=== PATIENT | male | born 1955 | race Caucasian/White ===

== ENCOUNTER 2023-02-01 11:04 | Inpatient (IN) ==
[2023-02-01 11:58] LABS: Basophils # (auto) 0.02 K/uL (0.00-0.20); Basophils % (auto) 0.4 %; Eosinophils # (auto) 0.16 K/uL (0.00-0.50); Eosinophils % (auto) 3.3 %; Hematocrit (blood only) 41.2 % (42.0-52.0); Hemoglobin 14.2 g/dl (14.0-18.0); Immature Granulocytes # (auto) 0.02 K/uL (0.01-0.20); Immature Granulocytes % (auto) 0.4 %; Lymphocytes # (auto) 1.03 K/uL (1.20-3.40); Lymphocytes % (auto) 21.4 %; Mean Corpuscular Hemoglobin 34.7 pg (25.0-34.0); Mean Corpuscular Hgb Conc 34.5 g/dL (32.0-36.0); Mean Corpuscular Volume 100.7 fL (80.0-100.0); Mean Platelet Volume 9.3 fL (9.4-12.4); Monocytes # (auto) 0.61 K/uL (0.11-0.59); Monocytes % (auto) 12.7 %; Neutrophils # (auto) 2.97 K/uL (1.40-6.50); Neutrophils % (auto) 61.8 %; Platelet Count 212 K/uL (130-400); RDW Coefficient of Variation 12.4 % (11.5-14.5); RDW Standard Deviation 46.2 fL (36.4-46.3); Red Blood Count 4.09 M/uL (4.70-6.10); White Blood Count 4.81 K/ul (4.8-10.8)
[2023-02-01 12:19] LABS: Alanine Aminotransferase 18 U/L (7-52); Albumin Globulin Ratio 1.6 (0.9-2); Albumin Level 4.2 gm/dl (3.4-5.0); Alkaline Phosphatase 78 U/L (34-104); Anion Gap 8 (3-11); Aspartate Aminotransferase 23 U/L (13-39); Bilirubin,Total 0.6 mg/dl (0.2-1.0); Blood Urea Nitrogen 22 mg/dl (6-23); Calcium 9.3 mg/dl (8.6-10.3); Carbon Dioxide 27 mmol/L (21-32); Chloride 104 mmol/L (98-107); Est GFR (African American) 101.6 ml/min; Est GFR (Non-African American) 87.6 ml/min; Globulin 2.6 gm/dl (2.5-4.0); Glucose 103 mg/dl (70-99(Fasting)); Potassium 4.2 mmol/L (3.5-5.1); Sodium 139 mmol/L (136-145); Total Protein 6.8 gm/dl (6.0-8.3)
--- NOTE | 2023-02-01 14:09 | Emergency Department Note ---
Impression & Plan Dropfoot, Lumbar radiculopathy, Thoracic back pain, Bilateral leg weakness ED Provider Note NAME: MAGEN MCCALL AGE: 67 SEX: M : 1955 ARRIVES VIA: Walk-In INFORMANT: Patient ED PROVIDER(S): Fabio Otero DO CHIEF COMPLAINT: back pain HPI: Patient is a 67-year-old male who presents ER for back pain which has been present for the past 2 months. He notes he started with some dropfoot of the right leg about 6 weeks ago. He now notes he is having weakness and numbness on bilateral thighs. He was referred in by his PCP following having a MRI of the thoracic spine. Denies any headache or change in vision. No chest pain or shortness of breath. No nausea, vomiting, or diarrhea. He is able to urinate move his bowels. ADDITIONAL HISTORY OBTAINED: Per HPI Chronic Medical/Social Conditions Affecting Care: Per HPI PAST MEDICAL HISTORY:See Below PAST SURGICAL HISTORY:See Below FAMILY HISTORY:See Below SOCIAL HISTORY:See Below HOME MEDICATIONS:See Below ALLERGIES:See Below VITALS:See Below PHYSICAL EXAMINATION: GENERAL: Sitting up in bed, alert, well appearing, well nourished, no distress, non-toxic EYE EXAM: normal conjunctiva. OROPHARYNX: no exudate, no erythema, lips, buccal mucosa, and tongue normal and mucous membranes are moist NECK: supple, no nuchal rigidity, no adenopathy, non-tender LUNGS: Clear to auscultation. Normal chest wall mechanics HEART: no murmurs, S1 normal and S2 normal ABDOMEN: abdomen soft, non-tender, normo-active bowel sounds, no masses, no rebound or guarding. BACK: Back is symmetrical on inspection and there is no deformity, no midline tenderness, no CVA tenderness. SKIN: no rashes and no bruising UPPER EXTREMITIES: upper extremities are grossly normal. LOWER EXTREMITIES:Flexion and extension of the hips, knees, 5 out of 5 bilaterally. Flexion extension of the left ankle and EHL intact 5 out of 5. Able to plantarflex on the right but unable to dorsiflex. Unable to extend EHL. Gross sensation is intact. DPs are 2/4 bilateral. Patellar reflexes are 2 out of 4 bilaterally. NEURO EXAM: Normal sensorium, cranial nerves II-XII grossly intact, normal speech, no gross weakness of arms, no gross weakness of legs. MEDICAL DECISION MAKING: Patient is a 67-year-old male who presents ER for the above-stated complaint. IV was established blood work was obtained. External records were reviewed in regards to the MRI of the thoracic spine which showed T10-T11 abnormalities. These were discussed with Dr. Lott who operated on this patient before in the past. He recommended MRI lumbar spine admission to the hospital some further work-up. I did discuss with the hospitalist for further evaluation management treatment. Labs showed no significant leukocytosis or anemia. BMP along with LFTs bilirubin was unremarkable. Patient was given 2 doses of Ativan to help him get through the MRI. He was admitted to hospitalist I spoke with Delilah michael for further evaluation. External Records Reviewed: Reviewed external MRI from 611 and thoracic spine Consults/Care Managements Discussions: Per MDM Triage Nursing notes reviewed. Limited review of prior medical records performed Vital Signs: reviewed and remarkable for no significant abnormalities Differential diagnosis: Musculoskeletal, disc herniation, fracture, metastatic disease, cord comp ression, discitis, sciatica, cauda equina, infection, aortic disease, renal colic, gastrointestinal, as well as other pathologies. ER treatment provided: See below Diagnostics interpreted by me include EKG and cardiac monitoring as listed below: -Cardiac Monitoring: An order was placed for continuous cardiac monitoring. The monitor shows a rate of 70 with sinus rhythm. -ECG: none -Laboratory studies:Interpreted by me as stated above in MDM and shown below. Imaging studies: Xrays: As interpreted by me: Portable AP upright 1 view of the chest shows no focal infiltrate CTs show: none MR: Of the lumbar spine shows stenosis and multiple disc bulges Procedures:none Critical Care: None Past Med/Surg History Medical History (Updated 02/01/23 @ 20:02 by Fabio Otero DO) Anxiety Depression GERD (gastroesophageal reflux disease) HLD (hyperlipidemia) HTN (hypertension) Surgical History History of back surgery Social History Smoking Status: Former smoker Smoking End Date: quit smoking years ago; Second Hand Exposure: No; Do You Dip or Chew Tobacco: No; Tobacco Cessation Education Requested by Patient: No Hx Alcohol Use: Yes Alcohol type: hard liquor Hx Substance Use: No Preferred Language: Malian Communication Ability: Effective 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 Required: No Beliefs That Will Affect Care: None Current Living Situation: Family Current Living Situation Comment: lives with son Other Information That Helps Us Care for You: No Feels Safe at Home: Yes Safety Concerns: Feels Safe At This Time Assistive Devices: Cane, Denture - Upper, Denture - Lower and Glasses Allergies Allergies Allergy/AdvReac Type Severity Reaction Status Date / Time cat dander Allergy Unknown YORDY DOG Verified 09/22/22 14:40 NASAL [id number], ITCHY EYES grass pollen-perennial rye, Allergy Unknown TREES,GRASS-NASAL Verified 09/22/22 14:40 standar CONGESTION pollen extracts Allergy Unknown ITCHY Verified 09/22/22 14:40 EYES,NASAL CONGESTION Home Meds Home Medications Medication Instructions Recorded Confirmed atorvastatin 40 mg tablet (Lipitor) 40 mg PO HS 03/12/21 02/01/23 lisinopril 40 mg tablet 40 mg PO QAM 03/12/21 02/01/23 omeprazole 20 mg capsule,delayed 20 mg PO BID 03/12/21 02/01/23 release sildenafil 50 mg tablet (Viagra) 50 mg PO DAILY PRN Erectile 03/12/21 02/01/23 Dysfunction baclofen 10 mg tablet 10 mg PO TID PRN Muscle Spasm 02/01/23 02/01/23 bupropion HCl 200 mg tablet,12 hr 200 mg PO BID 02/01/23 02/01/23 sustained-release buspirone 15 mg tablet 15 mg PO TID 02/01/23 02/01/23 desonide 0.05 % topical cream 1 applic topical BID PRN psoriasis 02/01/23 02/01/23 hydrocortisone 2.5 % topical cream 1 applic topical BID PRN Itching 02/01/23 02/01/23 metoprolol tartrate 25 mg tablet 25 mg PO BID 02/01/23 02/01/23 tacrolimus 0.1 % topical ointment 1 applic topical BID PRN genital 02/01/23 02/01/23 psoriasis trazodone 100 mg tablet 100 mg PO HS 02/01/23 02/01/23 Results & Data (ED) Vital Signs Vital Signs - 24 hr 02/01/23 11:24 02/01/23 15:11 Temperature 36.8 C Temperature Source Temporal Artery Scan Pulse Rate 66 Pulse Rate [Right Finger] 61 Respiratory Rate 18 19 Blood Pressure 174/101 H Blood Pressure [Left Arm] 173/92 H Blood Pressure Mean 125 Blood Pressure Mean [Left Arm] 119 Pulse Oximetry 97 97 Oxygen Delivery Method Room Air Room Air Sepsis Recent Fever Within 48 Hours No Sepsis New/Unexplained Change in Mental Status No Sepsis Action Taken by Nursing No Action Required Laboratory Data 02/01/23 11:35 02/01/23 11:35 Lab Results 02/01/23 02/01/23 Range/Units 11:35 11:35 WBC 4.81 (4.8-10.8) K/ul RBC 4.09 L (4.70-6.10) M/uL Hgb 14.2 (14.0-18.0) g/dl Hct 41.2 L (42.0-52.0) % MCV 100.7 H (80.0-100.0) fL MCH 34.7 H (25.0-34.0) pg MCHC 34.5 (32.0-36.0) g/dL RDW Std Deviation 46.2 (36.4-46.3) fL RDW Coeff of Will 12.4 (11.5-14.5) % Plt Count 212 (130-400) K/uL MPV 9.3 L (9.4-12.4) fL Immature Gran % (Auto) 0.4 % Neut % (Auto) 61.8 % Lymph % (Auto) 21.4 % [place] % (Auto) 12.7 % Eos % (Auto) 3.3 % Baso % (Auto) 0.4 % Neut # (Auto) 2.97 (1.40-6.50) K/uL Lymph # (Auto) 1.03 L (1.20-3.40) K/uL [place] # (Auto) 0.61 H (0.11-0.59) K/uL Eos # (Auto) 0.16 (0.00-0.50) K/uL Baso # (Auto) 0.02 (0.00-0.20) K/uL Immature Gran # (Auto) 0.02 (0.01-0.20) K/uL Sodium 139 (136-145) mmol/L Potassium 4.2 (3.5-5.1) mmol/L Chloride 104 (98-107) mmol/L Carbon Dioxide 27 (21-32) mmol/L Anion Gap 8 (3-11) BUN 22 (6-23) mg/dl Creatinine 0.88 (0.6-1.4) mg/dl Est Cr Clr Drug Dosing Not Reportable Est GFR ( Amer) 101.6 ml/min Est GFR (Non-Af Amer) 87.6 ml/min BUN/Creatinine Ratio 25.0 H (10-20) Glucose 103 H (70-99(Fasting)) mg/dl Calcium 9.3 (8.6-10.3) mg/dl Total Bilirubin 0.6 (0.2-1.0) mg/dl AST 23 (13-39) U/L ALT 18 (7-52) U/L Alkaline Phosphatase 78 (34-104) U/L Total Protein 6.8 (6.0-8.3) gm/dl Albumin 4.2 (3.4-5.0) gm/dl Globulin 2.6 (2.5-4.0) gm/dl Albumin/Globulin Ratio 1.6 (0.9-2) Administered Medications Discontinued Medications Lorazepam (Lorazepam 2 Mg/1 Ml Vial) 1 mg IV NOW STA Stop: 02/01/23 15:08 Last Admin: 02/01/23 16:28 Dose: 1 mg Documented By: KM Lorazepam (Lorazepam 2 Mg/1 Ml Vial) 0.5 mg IV NOW STA Stop: 02/01/23 16:25 Last Admin: 02/01/23 18:13 Dose: Not Given Documented By: BRADFORD Morphine Sulfate (Morphine Sulfate 4 Mg/Ml 1 Ml Carp\Vial) 4 mg IV NOW STA Stop: 02/01/23 14:13 Last Admin: 02/01/23 15:28 Dose: 4 mg Documented By: BRENDA Ondansetron HCl (Ondansetron Inj 2 Mg/Ml 2 Ml Vial) 4 mg IV NOW STA Stop: 02/01/23 14:13 Last Admin: 02/01/23 15:28 Dose: 4 mg Documented By: BRENDA Imaging Data Radiologist's Impression: Lumbar Spine MRI 02/01/23 14:09 MR lumbar spine wo con CLINICAL HISTORY: lower back pain r drop foot TECHNIQUE: Multiplanar sequences through the lumbar spine were obtained, without intravenous contrast. Comparison: Comparison is made to fluoroscopy lumbar spine 12/22/2014 FINDINGS: Posterior fixation hardware spans L3-S1. Prominent posterior disc bulges are seen in the lower thoracic spine most prominent at T10-T11 with AP diameter 5 mm. L1-L2: Broad-based posterior disc bulge results in severe left and moderate right neural foraminal stenosis and mild canal stenosis. L2-L3: Broad-based posterior disc bulge is seen with moderate bilateral neural foraminal stenosis. Mild canal stenosis is seen. Exam of the remaining disc spaces is limited by susceptibility artifact. The spinal ligaments are intact, without evidence of disruption or abnormal signal intensity. The spinal cord is normal in signal intensity and there is no evidence of cord contusion. There is no evidence of an extradural, intradural, extramedullary or intramedullary lesion. Visualized soft tissues are normal. IMPRESSION: 1. Multilevel degenerative changes are seen. There is up to severe left and moderate right bilateral neural foraminal stenosis. Mild canal stenosis is seen. 2. Partially visualized, there appears to be significant canal or neural foraminal stenosis in the lower thoracic spine most prominently at T10-T11. If there is concern for spinal cord impingement, dedicated thoracic spine MRI can be performed. ACT 112: Negative or not required by law. Electronically signed by: Maurilio Brown M.D. 02/01/2023 5:21 PM Discharge Plan Visit Data Chief Complaint: Back Injury/Pain Stated Complaint: BACK INJURY ED Provider: Fabio Otero Discharge Problem: Dropfoot, Lumbar radiculopathy, Thoracic back pain, Bilateral leg weakness Patient Disposition: Admitted As Inpatient Discharge Instructions Interventions: ED Discharge Assessment Last Done: 02/01/23 16:53
[2023-02-01] MEDS ORDERED: MoRPHine SULFATE 4 MG/ML 1 ML CARP\\VIAL IV STA (14:12)
[2023-02-01] MEDS ORDERED: ONDANSETRON INJ 2 MG/ML 2 ML VIAL IV STA (14:12)
[2023-02-01] MEDS ORDERED: LORazepam 2 MG/1 ML VIAL IV STA ×2 (15:07→16:24)
--- NOTE | 2023-02-01 16:01 | History & Physical Report ---
Date of Service February 01, 2023 Assessment & Plan (1) Thoracic radiculopathy: Plan: Admit to [facility] Patient presenting for evaluation of back pain, right foot drop, bilateral leg weakness and numbness. Outpatient thoracic MRI from 01/27 -at T10/11, there is a broad-based midline disc protrusion measuring 4 mm in diameter causing moderate flattening of the cord. There is severe spinal canal stenosis secondary to the protrusion and bilateral facet osteoarthritis. --Images requested from [facility] MRI Lumbar spine MRI pending Pain control with bowel regimen Spine Ortho consult (2) HTN (hypertension): Plan: Chronic BP elevated, likely secondary to pain, provide pain control and reevaluate BP Continue home metoprolol and lisinopril (3) Anxiety: (4) Depression: Plan: Chronic, stable Continue home meds (5) HLD (hyperlipidemia): Plan: Chronic, stable Continue statin DVT PROPHYLAXIS SCDs due to possible procedure Patient seen in collaboration with Dr. Nina. I spent a total of 75 minutes coordinating, documenting, and providing care for this patient excluding time spent in the performance of separately billed services. This included personally reviewing all current laboratories and imagin g studies, medication reconciliation, outpatient chart review, and discussion with specialists. History of Present Illness Chief Complaint: Back pain, foot drop, leg numbness and weakness Primary Care Provider: Armani Hough MD 67 year old male with PMH hyperlipidemia, HTN, GERD, psoriasis, anxiety, depression, and other problems listed below who presents to the ED for evaluation of back pain, right foot drop, bilateral leg numbness and weakness. History obtained from the patient and review of outpatient PCP and neurology records. Patient states his symptoms initially began 7 weeks ago. Reports that he developed a mid/lower back pain. Then developed right foot drop. Symptoms progressed to include numbness from the umbilicus down both legs bilaterally with associated weakness. Patient reports that he was ambulating with the assistance of a cane however now is having much difficulty with use of a cane. Patient had an outpatient MRI completed on 01/27 that showed a broad-based midline disc protrusion at T10/T11 causing moderate flattening of the cord with severe spinal canal stenosis. Patient denies bowel and bladder dysfunction. No fevers or chills. Denies chest pain and shortness of breath. No lightheadedness, dizziness, diaphoresis, syncopal events. In the ED, labs are unremarkable. Lumbar spine MRI pending. Patient was given IV morphine and IV Zofran. Allergies Allergy/AdvReac Type Severity Reaction Status Date / Time cat dander Allergy Unknown YORDY DOG Verified 09/22/22 14:40 NASAL [id number], ITCHY EYES grass pollen-perennial rye, Allergy Unknown TREES,GRASS-NASAL Verified 09/22/22 14:40 standar CONGESTION pollen extracts Allergy Unknown ITCHY Verified 09/22/22 14:40 EYES,NASAL CONGESTION Home Medications Medication Instructions Recorded Confirmed Type atorvastatin 40 mg tablet (Lipitor) 40 mg PO HS 03/12/21 02/01/23 History lisinopril 40 mg tablet 40 mg PO QAM 03/12/21 02/01/23 History omeprazole 20 mg capsule,delayed 20 mg PO BID 03/12/21 02/01/23 History release sildenafil 50 mg tablet (Viagra) 50 mg PO DAILY PRN Erectile 03/12/21 02/01/23 History Dysfunction baclofen 10 mg tablet 10 mg PO TID PRN Muscle Spasm 02/01/23 02/01/23 History bupropion HCl 200 mg tablet,12 hr 200 mg PO BID 02/01/23 02/01/23 History sustained-release buspirone 15 mg tablet 15 mg PO TID 02/01/23 02/01/23 History desonide 0.05 % topical cream 1 applic topical BID PRN psoriasis 02/01/23 02/01/23 History hydrocortisone 2.5 % topical cream 1 applic topical BID PRN Itching 02/01/23 02/01/23 History metoprolol tartrate 25 mg tablet 25 mg PO BID 02/01/23 02/01/23 History tacrolimus 0.1 % topical ointment 1 applic topical BID PRN genital 02/01/23 02/01/23 History psoriasis trazodone 100 mg tablet 100 mg PO HS 02/01/23 02/01/23 History Past Med/Surg History Medical History (Updated 02/01/23 @ 17:03 by KRISHNA Espino) Anxiety Depression GERD (gastroesophageal reflux disease) HLD (hyperlipidemia) HTN (hypertension) Surgical History History of back surgery Review of Systems Review of Systems: ROS per HPI, all other systems reviewed and negative Physical Exam Physical Exam: Pelase refer to Dr. Nina's addendum for physical exam Results & Data Results & Data Vital Signs (Past 12 Hours) Vital Signs Temp Pulse Pulse Resp BP BP Pulse Ox 02/01/23 15:11 61 19 173/92 H 97 02/01/23 11:24 36.8 C 66 18 174/101 H 97 O2 Del Method 02/01/23 15:11 Room Air 02/01/23 11:24 Room Air Laboratory Results Short CBC 02/01/23 Range/Units 11:35 WBC 4.81 (4.8-10.8) K/ul Hgb 14.2 (14.0-18.0) g/dl Hct 41.2 L (42.0-52.0) % Plt Count 212 (130-400) K/uL BMP 02/01/23 11:35 Sodium 139 Potassium 4.2 Chloride 104 Carbon Dioxide 27 BUN 22 Creatinine 0.88 Glucose 103 H Calcium 9.3 Liver Function 02/01/23 Range/Units 11:35 Total Bilirubin 0.6 (0.2-1.0) mg/dl AST 23 (13-39) U/L ALT 18 (7-52) U/L Alkaline Phosphatase 78 (34-104) U/L Albumin 4.2 (3.4-5.0) gm/dl Code Status & VTE Plan VTE Prophylaxis Plan VTE Prophylaxis will be ordered: Yes Supervising Physician Co-Signing Physician Notes Patient seen and examined independently. Discussed with above provider Patient is a 67-year-old male with history of his back surgery who presented to the ED with progressive lower extremity weakness. Patient reports that he started experiencing lower back pain in the end of December with radiating pain down his bilateral thigh. He reports that he has been progressively feeling weaker in his bilateral lower legs which progressed to a point where he started using cane for support. This morning, patient was unable to walk which prompted him to come to the ED. Patient had thoracic spine MRI done at [place] which is concerning for spinal cord compression. He was seen by neurology as an outpatient and was given [facility] referral. On physical examination; Constitutional: Alert orient x3; not in distress. Respiratory: normal respiratory effort, lungs clear to auscultation, no wheeze, rales, rhonchi. Normal insp/exp effort, no accessory muscle use Cardiovascular: RRR, no murmur, no edema Vessels: no JVD or carotid bruit Chest: normal inspection of chest Abdomen: normal bowel sounds, soft, nontender, no hepatosplenomegaly Musculoskeletal: no cyanosis or clubbing, Skin: no rashes, warm and dry normal turgor Neurologic: PERRL, EOMI, accommodation nl, no face palsy, no dysarthria CN's II-XI intact bilaterally Decreased sensation starting from the groin all the way down to his feet. Foot drop present on right foot; strength 4/5 diffusely otherwise. Psychiatric: A+Ox3, euthymic affect Assessment/plan Spinal cord compression Orthospine consulted; will keep patient n.p.o. from midnight. MRI lumbar spine pending. Thoracic MRI done in [place] to be sent over. Outpatient thoracic MRI from 01/27 -at T10/11, broad-based midline disc protrusion measuring 4 mm in diameter causing moderate flattening of the cord. There is severe spinal canal stenosis secondary to the protrusion and bilateral facet osteoarthritis Preop assessment: Patient is independent on all of his ADLs prior to this event, denies any chest pain or discomfort. EKG done in the ED personally reviewed; normal sinus rhyt hm; no acute findings. Chest x-ray done in the ED does not show any acute finding. Patient is currently medically optimized to undergo surgery and is at average risk for postoperative complications.
--- NOTE | 2023-02-01 17:03 | XRay Report ---
XR chest 1V portable CLINICAL HISTORY: Preoperative evaluation. COMPARISON STUDY: Chest radiograph December 02, 2014. FINDINGS: There is no pneumothorax or pleural effusion. Minimal left basilar opacity favors atelectas is. Mild cardiomegaly without evidence for pulmonary edema. Lung volumes are normal. IMPRESSION: No acute cardiopulmonary findings. ACT 112: Negative or not required by law. Electronically signed by: Dandre Ngo M.D. 02/01/2023 5:02 PM
--- NOTE | 2023-02-01 17:24 | Magnetic Resonance Report ---
MR lumbar spine wo con CLINICAL HISTORY: lower back pain r drop foot TECHNIQUE: Multiplanar sequences through the lumbar spine were obtained, without intravenous contrast . Comparison: Comparison is made to fluoroscopy lumbar spine 12/22/2014 FINDINGS: Posterior fixation hardware spans L3-S1. Prominent posterior disc bulges are seen in the lower thorac ic spine most prominent at T10-T11 with AP diameter 5 mm. L1-L2: Broad-based posterior disc bulge results in severe left and moderate right neural foraminal st enosis and mild canal stenosis. L2-L3: Broad-based posterior disc bulge is seen with moderate bilateral neural foraminal stenosis. Mi ld canal stenosis is seen. Exam of the remaining disc spaces is limited by susceptibility artifact. The spinal ligaments are intact, without evidence of disruption or abnormal signal intensity. The spi nal cord is normal in signal intensity and there is no evidence of cord contusion. There is no eviden ce of an extradural, intradural, extramedullary or intramedullary lesion. Visualized soft tissues are normal. IMPRESSION: 1. Multilevel degenerative changes are seen. There is up to severe left and moderate right bilateral neural foraminal stenosis. Mild canal stenosis is seen. 2. Partially visualized, there appears to be significant canal or neural foraminal stenosis in the l ower thoracic spine most prominently at T10-T11. If there is concern for spinal cord impingement, ded icated thoracic spine MRI can be performed. ACT 112: Negative or not required by law. Electronically signed by: Maurilio Brown M.D. 02/01/2023 5:21 PM
[2023-02-01] MEDS ORDERED: ACETAMINOPHEN 325 MG TAB PO PRN (17:36)
[2023-02-01] MEDS ORDERED: BACLOFEN 10 MG TAB PO PRN (17:36)
[2023-02-01] MEDS ORDERED: MoRPHine SULFATE 4 MG/ML 1 ML CARP\\VIAL IV PRN (17:36)
[2023-02-01] MEDS: busPIRone 15 MG TAB PO SCH (21:34)
[2023-02-01] MEDS: PANTOprazole 40 MG TAB PO SCH (21:34)
[2023-02-01] MEDS: traZODone HCL 100 MG TAB PO SCH (21:34)
[2023-02-01] MEDS: ATORVASTATIN 40 MG TAB PO SCH (21:34)
[2023-02-01] MEDS: buPROPion SR 100 MG TABCR PO SCH (21:34)
[2023-02-01] MEDS: METOPROLOL TARTRATE 25 MG TAB PO SCH (21:34)
[2023-02-01] MEDS: DOCUSATE SODIUM/SENNA 50/8.6MG TAB PO SCH (21:35)
[2023-02-01] MEDS: oxyCODONE HCL IR 5 MG TAB (IMMEDIATE RELEASE) PO PRN (21:37)
[2023-02-02] MEDS: oxyCODONE HCL IR 5 MG TAB (IMMEDIATE RELEASE) PO PRN ×3 (06:13→20:03)
[2023-02-02 06:30] LABS: Hematocrit (blood only) 37.9 % (42.0-52.0); Hemoglobin 13.1 g/dl (14.0-18.0); Mean Corpuscular Hemoglobin 34.8 pg (25.0-34.0); Mean Corpuscular Hgb Conc 34.6 g/dL (32.0-36.0); Mean Corpuscular Volume 100.8 fL (80.0-100.0); Mean Platelet Volume 9.3 fL (9.4-12.4); Platelet Count 174 K/uL (130-400); RDW Coefficient of Variation 12.5 % (11.5-14.5); RDW Standard Deviation 46.6 fL (36.4-46.3); Red Blood Count 3.76 M/uL (4.70-6.10); White Blood Count 4.43 K/ul (4.8-10.8)
[2023-02-02 06:54] LABS: Creatinine Clr Calc Pharmacy 91.1 ml/min; Est GFR (African American) 106.2 ml/min; Est GFR (Non-African American) 91.6 ml/min; Potassium 4.1 mmol/L (3.5-5.1)
[2023-02-02] MEDS: busPIRone 15 MG TAB PO SCH ×3 (08:13→20:04)
[2023-02-02] MEDS: METOPROLOL TARTRATE 25 MG TAB PO SCH ×2 (08:13→20:04)
[2023-02-02] MEDS: lisinopril 40 MG TAB PO SCH (08:13)
[2023-02-02] MEDS: buPROPion SR 100 MG TABCR PO SCH ×2 (08:13→20:04)
[2023-02-02] MEDS: POLYETHYLENE (MIRALAX) 17 GM PACK PO SCH ×2 (08:14)
[2023-02-02] MEDS: PANTOprazole 40 MG TAB PO SCH ×2 (08:14→20:04)
--- NOTE | 2023-02-02 11:12 | Hospitalist Progress Note ---
Date of Service February 02, 2023 Assessment & Plan (1) Thoracic radiculopathy: Plan: Patient presenting for evaluation of back pain, right foot drop, bilateral leg weakness and numbness. Outpatient thoracic MRI from 01/27 -at T10/11, there is a broad-based midline disc protrusion measuring 4 mm in diameter causing moderate flattening of the cord. There is severe spinal canal stenosis secondary to the protrusion and bilateral facet osteoarthritis. --Images requested from 611 MRI Lumbar spine MRI obtained - 1. Multilevel degenerative changes are seen. There is up to severe left and moderate right bilateral neural foraminal stenosis. Mild canal stenosis is seen. 2. Partially visualized, there appears to be significant canal or neural foraminal stenosis in the lower thoracic spine most prominently at T10-T11. If there is concern for spinal cord impingement, dedicated thoracic spine MRI can be performed. Pain control with bowel regimen Spine Ortho consulted - pt seen by Dr. Lott, plan for surg. intervention (2) HTN (hypertension): Plan: Chronic Continue home metoprolol and lisinopril monitor BP (3) Anxiety: (4) Depression: Plan: Chronic, stable Continue home meds (5) HLD (hyperlipidemia): Plan: Chronic, stable Continue statin DVT PROPHYLAXIS SCDs due to possible procedure Admission and Anticipated Discharge Date Admission Date: February 01, 2023 Subjective Pt seen in follow up of back pain Currently sitting up in bed in NAD No fever, chills, chest pain, shortness of breath or abd. pain Has lower back pain with radiation to both thighs, and numbness in both thighs Ortho-spine consulted Review of Systems Review of Systems: All systems reviewed & are unremarkable except as noted in Subjective Physical Exam Physical Exam: Constitutional: Alert orient x3; not in distress. Respiratory: normal respiratory effort, lungs clear to auscultation, no wheeze, rales, rhonchi. Normal insp/exp effort, no accessory muscle use Cardiovascular: RRR, no murmur, no edema Vessels: no JVD or carotid bruit Chest: normal inspection of chest Abdomen: normal bowel sounds, soft, nontender Musculoskeletal: moves extremities Skin: no rashes, warm and dry Neurologic: PERRL, EOMI, no face palsy, no dysarthria, Decreased sensation starting from the groin all the way down to his feet. Foot drop present on right foot; strength 4/5 diffusely otherwise. Psychiatric: A+Ox3, euthymic affect Results & Data Results & Data Vital Signs (Past 12 Hours) Vital Signs Temp Pulse Resp BP Pulse Ox O2 Del Method 02/02/23 08:00 Room Air 02/02/23 07:28 36.5 C 63 16 149/85 H 96 Room Air Laboratory Results 02/02/23 02/02/23 02/01/23 Range/Units 06:02 06:02 11:35 WBC 4.43 L (4.8-10.8) K/ul RBC 3.76 L (4.70-6.10) M/uL Hgb 13.1 L (14.0-18.0) g/dl Hct 37.9 L (42.0-52.0) % MCV 100.8 H (80.0-100.0) fL MCH 34.8 H (25.0-34.0) pg MCHC 34.6 (32.0-36.0) g/dL RDW Std Deviation 46.6 H (36.4-46.3) fL RDW Coeff of Will 12.5 (11.5-14.5) % Plt Count 174 (130-400) K/uL MPV 9.3 L (9.4-12.4) fL Immature Gran % (Auto) % Neut % (Auto) % Lymph % (Auto) % [place] % (Auto) % Eos % (Auto) % Baso % (Auto) % Neut # (Auto) (1.40-6.50) K/uL Lymph # (Auto) (1.20-3.40) K/uL [place] # (Auto) (0.11-0.59) K/uL Eos # (Auto) (0.00-0.50) K/uL Baso # (Auto) (0.00-0.20) K/uL Immature Gran # (Auto) (0.01-0.20) K/uL Sodium 141 139 (136-145) mmol/L Potassium 4.1 4.2 (3.5-5.1) mmol/L Chloride 106 104 (98-107) mmol/L Carbon Dioxide 31 27 (21-32) mmol/L Anion Gap 4 8 (3-11) BUN 15 22 (6-23) mg/dl Creatinine 0.79 0.88 (0.6-1.4) mg/dl Est Cr Clr Drug Dosing 91.1 Not Reportable Est GFR ( Amer) 106.2 101.6 ml/min Est GFR (Non-Af Amer) 91.6 87.6 ml/min BUN/Creatinine Ratio 19.0 25.0 H (10-20) Glucose 100 H 103 H (70-99(Fasting)) mg/dl Calcium 9.0 9.3 (8.6-10.3) mg/dl Total Bilirubin 0.6 (0.2-1.0) mg/dl AST 23 (13-39) U/L ALT 18 (7-52) U/L Alkaline Phosphatase 78 (34-104) U/L Total Protein 6.8 (6.0-8.3) gm/dl Albumin 4.2 (3.4-5.0) gm/dl Globulin 2.6 (2.5-4.0) gm/dl Albumin/Globulin Ratio 1.6 (0.9-2) 02/01/23 Range/Units 11:35 WBC 4.81 (4.8-10.8) K/ul RBC 4.09 L (4.70-6.10) M/uL Hgb 14.2 (14.0-18.0) g/dl Hct 41.2 L (42.0-52.0) % MCV 100.7 H (80.0-100.0) fL MCH 34.7 H (25.0-34.0) pg MCHC 34.5 (32.0-36.0) g/dL RDW Std Deviation 46.2 (36.4-46.3) fL RDW Coeff of Will 12.4 (11.5-14.5) % Plt Count 212 (130-400) K/uL MPV 9.3 L (9.4-12.4) fL Immature Gran % (Auto) 0.4 % Neut % (Auto) 61.8 % Lymph % (Auto) 21.4 % [place] % (Auto) 12.7 % Eos % (Auto) 3.3 % Baso % (Auto) 0.4 % Neut # (Auto) 2.97 (1.40-6.50) K/uL Lymph # (Auto) 1.03 L (1.20-3.40) K/uL [place] # (Auto) 0.61 H (0.11-0.59) K/uL Eos # (Auto) 0.16 (0.00-0.50) K/uL Baso # (Auto) 0.02 (0.00-0.20) K/uL Immature Gran # (Auto) 0.02 (0.01-0.20) K/uL Sodium (136-145) mmol/L Potassium (3.5-5.1) mmol/L Chloride (98-107) mmol/L Carbon Dioxide (21-32) mmol/L Anion Gap (3-11) BUN (6-23) mg/dl Creatinine (0.6-1.4) mg/dl Est Cr Clr Drug Dosing Est GFR ( Amer) ml/min Est GFR (Non-Af Amer) ml/min BUN/Creatinine Ratio (10-20) Glucose (70-99(Fasting)) mg/dl Calcium (8.6-10.3) mg/dl Total Bilirubin (0.2-1.0) mg/dl AST (13-39) U/L ALT (7-52) U/L Alkaline Phosphatase (34-104) U/L Total Protein (6.0-8.3) gm/dl Albumin (3.4-5.0) gm/dl Globulin (2.5-4.0) gm/dl Albumin/Globulin Ratio (0.9-2) Medications Administered Current Inpatient Medications Acetaminophen (Acetaminophen 325 Mg Tab) 650 mg PO Q4H PRN PRN Reason: pain/fever Stop: 03/03/23 17:35 Atorvastatin Calcium (Atorvastatin 40 Mg Tab) 40 mg PO HS [facility] Stop: 03/03/23 20:59 Last Admin: 02/01/23 21:34 Dose: 40 mg Baclofen (Baclofen 10 Mg Tab) 10 mg PO TID PRN PRN Reason: Muscle Spasm Stop: 03/03/23 17:35 Bupropion HCl (Bupropion Sr 100 Mg Tabcr) 200 mg PO BID [facility] Stop: 03/03/23 20:59 Last Admin: 02/02/23 08:13 Dose: 200 mg Buspirone HCl (Buspirone 15 Mg Tab) 15 mg PO TID [facility] Stop: 03/03/23 20:59 Last Admin: 02/02/23 08:13 Dose: 15 mg Lisinopril (Lisinopril 40 Mg Tab) 40 mg PO QAM [facility] Stop: 03/04/23 08:59 Last Admin: 02/02/23 08:13 Dose: 40 mg Metoprolol Tartrate (Metoprolol Tartrate 25 Mg Tab) 25 mg PO BID [facility] Stop: 03/03/23 20:59 Last Admin: 02/02/23 08:13 Dose: 25 mg Morphine Sulfate (Morphine Sulfate 4 Mg/Ml 1 Ml Carp\Vial) 4 mg IV Q6H PRN PRN Reason: Pain (6,7,8,9,10) Stop: 02/15/23 17:35 Oxycodone HCl (Oxycodone Hcl Ir 5 Mg Tab (Immediate Release)) 5 mg PO Q6H PRN PRN Reason: MODERATE Pain (4,5,6) & Pre PT Stop: 02/15/23 17:35 Last Admin: 02/02/23 06:13 Dose: 5 mg Pantoprazole Sodium (Pantoprazole 40 Mg Tab) 40 mg PO BID [facility] Stop: 03/03/23 20:59 Last Admin: 02/02/23 08:14 Dose: 40 mg Polyethylene Glycol (Polyethylene (Miralax) 17 Gm Pack) 17 gm PO DAILY [facility] Stop: 03/04/23 08:59 Last Admin: 02/02/23 08:14 Dose: Not Given Senna/Docusate Sodium (Docusate Sodium/Senna 50/8.6mg Tab) 2 tab PO HS [facility] Stop: 03/03/23 20:59 Last Admin: 02/01/23 21:35 Dose: Not Given Trazodone HCl (Trazodone Hcl 100 Mg Tab) 100 mg PO HS [facility] Stop: 03/03/23 20:59 Last Admin: 02/01/23 21:34 Dose: 100 mg
--- NOTE | 2023-02-02 16:14 | Orthopedic Consultation ---
Date of Consultation February 02, 2023 Assessment & Plan (1) Myelopathy concurrent with and due to spinal stenosis of thoracic region: MRIs of the thoracic and most recent MRI of the lumbar spine are available for review. They demonstrate severe spinal stenosis with cord compression and evidence of myelomalacia T10-T11 followed by T11-T12. Plan and discussion today with the patient regarding his MRI findings and clinical presentation. I am recommending urgent thoracic decompression with fusion T10-T12. This would allow us to adequately open up the spinal canal stabilize this region of the spine and prevent further decline. Hopefully with time and rehab we will regain function. Patient understands agrees would like to pursue surgery. Risk benefits pros cons alternatives were in detail. Risk include but not limited to anesthesia blindness stroke paralysis nerve damage blood loss requiring transfusion infection requiring reoperation passively marked improvement of this clinical presentation. We will make him n.p.o. alcohol after midnight plan for surgery tomorrow. History of Present Illness Reason for Consultation: Bilateral leg numbness and weakness Attending Physician: Homar Erickson MD History of Present Illness This is a 67-year-old male who presents yesterday with marked decline in status. He is noted over the past several weeks with decline in ability to ambulate a foot drop in the right leg and numbness involving his entire lower extremities. He denies loss of bowel bladder control. He uses a cane or walker to ambulate. He denies any specific trauma fall or event. He is currently retired. Lives with his son. Allergies Allergy/AdvReac Type Severity Reaction Status Date / Time cat dander Allergy Unknown YORDY DOG Verified 09/22/22 14:40 NASAL [id number], ITCHY EYES grass pollen-perennial rye, Allergy Unknown TREES,GRASS-NASAL Verified 09/22/22 14:40 standar CONGESTION pollen extracts Allergy Unknown ITCHY Verified 09/22/22 14:40 EYES,NASAL CONGESTION Home Medications Medication Instructions Recorded Confirmed Type atorvastatin 40 mg tablet (Lipitor) 40 mg PO HS 03/12/21 02/01/23 History lisinopril 40 mg tablet 40 mg PO QAM 03/12/21 02/01/23 History omeprazole 20 mg capsule,delayed 20 mg PO BID 03/12/21 02/01/23 History release sildenafil 50 mg tablet (Viagra) 50 mg PO DAILY PRN Erectile 03/12/21 02/01/23 History Dysfunction baclofen 10 mg tablet 10 mg PO TID PRN Muscle Spasm 02/01/23 02/01/23 History bupropion HCl 200 mg tablet,12 hr 200 mg PO BID 02/01/23 02/01/23 History sustained-release buspirone 15 mg tablet 15 mg PO TID 02/01/23 02/01/23 History desonide 0.05 % topical cream 1 applic topical BID PRN psoriasis 02/01/23 02/01/23 History hydrocortisone 2.5 % topical cream 1 applic topical BID PRN Itching 02/01/23 02/01/23 History metoprolol tartrate 25 mg tablet 25 mg PO BID 02/01/23 02/01/23 History tacrolimus 0.1 % topical ointment 1 applic topical BID PRN genital 02/01/23 02/01/23 History psoriasis trazodone 100 mg tablet 100 mg PO HS 02/01/23 02/01/23 History Patient History Medical History (Updated 02/02/23 @ 16:13 by Fco Lott DO) Anxiety Depression GERD (gastroesophageal reflux disease) HLD (hyperlipidemia) HTN (hypertension) Surgical History History of back surgery Social History Smoking Status: Former smoker Smoking End Date: quit smoking years ago; Second Hand Exposure: No; Do You Dip or Chew Tobacco: No; Tobacco Cessation Education Requested by Patient: No Hx Alcohol Use: Yes Alcohol type: hard liquor Hx Substance Use: No Preferred Language: Korean Communication Ability: Effective Count Team Member Required: No Beliefs That Will Affect Care: None Current Living Situation: Family Current Living Situation Comment: lives with son Other Information That Helps Us Care for You: No Feels Safe at Home: Yes Safety Concerns: Feels Safe At This Time Assistive Devices: Cane Physical Exam Physical Exam: On exam he is lying supine. He exhibits a sustained clonus to the left ankle nonsustained on the right. There is a marked foot drop on the right with dorsiflexion/houses longus. He has reasonable bilateral quadriceps and hip flexors. Sensory is markedly diminished bilateral lower extremities. Deep tendon reflexes are brisk. Results & Data Vital Signs (Past 12 Hours) Vital Signs Temp Pulse Resp BP BP Pulse Ox O2 Del Method 02/02/23 15:38 155/85 H 02/02/23 15:36 37.3 C 73 16 164/92 H 96 Room Air 02/02/23 08:00 Room Air 02/02/23 07:28 36.5 C 63 16 149/85 H 96 Room Air
[2023-02-02] MEDS: ATORVASTATIN 40 MG TAB PO SCH (20:04)
[2023-02-02] MEDS: traZODone HCL 100 MG TAB PO SCH (20:04)
[2023-02-02] MEDS: DOCUSATE SODIUM/SENNA 50/8.6MG TAB PO SCH (20:05)
[2023-02-03 06:37] LABS: Hematocrit (blood only) 37.4 % (42.0-52.0); Hemoglobin 13.5 g/dl (14.0-18.0); Mean Corpuscular Hemoglobin 35.2 pg (25.0-34.0); Mean Corpuscular Hgb Conc 36.1 g/dL (32.0-36.0); Mean Corpuscular Volume 97.4 fL (80.0-100.0); Mean Platelet Volume 9.4 fL (9.4-12.4); Platelet Count 197 K/uL (130-400); RDW Coefficient of Variation 12.4 % (11.5-14.5); RDW Standard Deviation 44.8 fL (36.4-46.3); Red Blood Count 3.84 M/uL (4.70-6.10); White Blood Count 5.65 K/ul (4.8-10.8)
[2023-02-03 06:52] LABS: BUN Creatinine Ratio 19.2 (10-20); Creatinine Clr Calc Pharmacy 98.6 ml/min; Est GFR (African American) 109.7 ml/min; Est GFR (Non-African American) 94.6 ml/min; Magnesium 1.4 mg/dl (1.7-2.4); Phosphorus 3.6 mg/dl (2.5-4.9); Potassium 3.7 mmol/L (3.5-5.1)
[2023-02-03] MEDS: oxyCODONE HCL IR 5 MG TAB (IMMEDIATE RELEASE) PO PRN ×3 (07:22→21:35)
[2023-02-03] MEDS: busPIRone 15 MG TAB PO SCH ×3 (08:30→21:39)
[2023-02-03] MEDS: lisinopril 40 MG TAB PO SCH (08:31)
[2023-02-03] MEDS: PANTOprazole 40 MG TAB PO SCH ×2 (08:31→21:40)
[2023-02-03] MEDS: buPROPion SR 100 MG TABCR PO SCH ×2 (08:32→21:40)
[2023-02-03] MEDS: METOPROLOL TARTRATE 25 MG TAB PO SCH ×2 (08:32→21:39)
[2023-02-03] MEDS: POLYETHYLENE (MIRALAX) 17 GM PACK PO SCH (08:37)
[2023-02-03] MEDS ORDERED: MAGNESIUM SULFATE / D5W 1 GM/100 ML BAG IV ONE (08:39)
--- NOTE | 2023-02-03 08:40 | Hospitalist Progress Note ---
Date of Service February 03, 2023 Assessment & Plan (1) Thoracic radiculopathy: Plan: Patient presenting for evaluation of back pain, right foot drop, bilateral leg weakness and numbness. Outpatient thoracic MRI from 01/27 -at T10/11, there is a broad-based midline disc protrusion measuring 4 mm in diameter causing moderate flattening of the cord. There is severe spinal canal stenosis secondary to the protrusion and bilateral facet osteoarthritis. --Images requested from [facility] Lumbar spine MRI obtained - 1. Multilevel degenerative changes are seen. There is up to severe left and moderate right bilateral neural foraminal stenosis. Mild canal stenosis is seen. 2. Partially visualized, there appears to be significant canal or neural foraminal stenosis in the lower thoracic spine most prominently at T10-T11. If there is concern for spinal cord impingement, dedicated thoracic spine MRI can be performed. Pain control with bowel regimen Spine Ortho consulted - pt seen by Dr. Lott, plan for surg. intervention later today - as per orthopedics - Patient has severe thoracic spinal stenosis with myelomalacia and gross myelopathy on exam. He is declining rapidly. Subsequently he is here for emergent decompression T10-T12. Hypomagnesemia - replete and monitor (2) HTN (hypertension): Plan: Chronic Continue home metoprolol and lisinopril monitor BP (3) Anxiety: (4) Depression: Plan: Chronic, stable Continue home meds (5) HLD (hyperlipidemia): Plan: Chronic, stable Continue statin DVT PROPHYLAXIS SCDs due to possible procedure Admission and Anticipated Discharge Date Admission Date: February 01, 2023 Subjective Pt seen in follow up of back pain Currently sitting up in bed in NAD No fever, chills, chest pain, shortness of breath or abd. pain Has lower back pain with radiation to both thighs, and numbness in both thighs Ortho-spine consulted and plans for surgery later today. Review of Systems Review of Systems: All systems reviewed & are unremarkable except as noted in Subjective Physical Exam Physical Exam: Constitutional: Alert orient x3; not in distress. Respiratory: normal respiratory effort, lungs clear to auscultation, no wheeze, rales, rhonchi. Normal insp/exp effort, no accessory muscle use Cardiovascular: RRR, no murmur, no edema Vessels: no JVD or carotid bruit Chest: normal inspection of chest Abdomen: normal bowel sounds, soft, nontender Musculoskeletal: moves extremities Skin: no rashes, warm and dry Neurologic: PERRL, EOMI, no face palsy, no dysarthria, Decreased sensation starting from the groin all the way down to his feet. Foot drop present on right foot; strength 4/5 diffusely otherwise. Psychiatric: A+Ox3, euthymic affect Results & Data Results & Data Vital Signs (Past 12 Hours) Vital Signs Temp Pulse Resp BP Pulse Ox O2 Del Method 02/03/23 07:21 37.0 C 74 16 160/93 H 94 Room Air Laboratory Results 02/03/23 02/03/23 Range/Units 05:57 05:57 WBC 5.65 (4.8-10.8) K/ul RBC 3.84 L (4.70-6.10) M/uL Hgb 13.5 L (14.0-18.0) g/dl Hct 37.4 L (42.0-52.0) % MCV 97.4 (80.0-100.0) fL MCH 35.2 H (25.0-34.0) pg MCHC 36.1 H (32.0-36.0) g/dL RDW Std Deviation 44.8 (36.4-46.3) fL RDW Coeff of Will 12.4 (11.5-14.5) % Plt Count 197 (130-400) K/uL MPV 9.4 (9.4-12.4) fL Sodium 140 (136-145) mmol/L Potassium 3.7 (3.5-5.1) mmol/L Chloride 104 (98-107) mmol/L Carbon Dioxide 29 (21-32) mmol/L Anion Gap 7 (3-11) BUN 14 (6-23) mg/dl Creatinine 0.73 (0.6-1.4) mg/dl Est Cr Clr Drug Dosing 98.6 ml/min Est GFR ( Amer) 109.7 ml/min Est GFR (Non-Af Amer) 94.6 ml/min BUN/Creatinine Ratio 19.2 (10-20) Glucose 100 H (70-99(Fasting)) mg/dl Calcium 9.0 (8.6-10.3) mg/dl Phosphorus 3.6 (2.5-4.9) mg/dl Magnesium 1.4 L (1.7-2.4) mg/dl Medications Administered Current Inpatient Medications Acetaminophen (Acetaminophen 325 Mg Tab) 650 mg PO Q4H PRN PRN Reason: pain/fever Stop: 03/03/23 17:35 Atorvastatin Calcium (Atorvastatin 40 Mg Tab) 40 mg PO HS [facility] Stop: 03/03/23 20:59 Last Admin: 02/02/23 20:04 Dose: 40 mg Baclofen (Baclofen 10 Mg Tab) 10 mg PO TID PRN PRN Reason: Muscle Spasm Stop: 03/03/23 17:35 Bupropion HCl (Bupropion Sr 100 Mg Tabcr) 200 mg PO BID [facility] Stop: 03/03/23 20:59 Last Admin: 02/03/23 08:32 Dose: 200 mg Buspirone HCl (Buspirone 15 Mg Tab) 15 mg PO TID [facility] Stop: 03/03/23 20:59 Last Admin: 02/03/23 08:30 Dose: 15 mg Magnesium Sulfate/Dextrose (Magnesium Sulfate / D5w) 1 gm in 100 mls @ 50 mls/hr IV ONE ONE Stop: 02/03/23 10:38 Lisinopril (Lisinopril 40 Mg Tab) 40 mg PO QAM [facility] Stop: 03/04/23 08:59 Last Admin: 02/03/23 08:31 Dose: 40 mg Metoprolol Tartrate (Metoprolol Tartrate 25 Mg Tab) 25 mg PO BID [facility] Stop: 03/03/23 20:59 Last Admin: 02/03/23 08:32 Dose: 25 mg Morphine Sulfate (Morphine Sulfate 4 Mg/Ml 1 Ml Carp\Vial) 4 mg IV Q6H PRN PRN Reason: Pain (6,7,8,9,10) Stop: 02/15/23 17:35 Last Admin: 02/02/23 18:07 Dose: 4 mg Oxycodone HCl (Oxycodone Hcl Ir 5 Mg Tab (Immediate Release)) 5 mg PO Q6H PRN PRN Reason: MODERATE Pain (4,5,6) & Pre PT Stop: 02/15/23 17:35 Last Admin: 02/03/23 07:22 Dose: 5 mg Pantoprazole Sodium (Pantoprazole 40 Mg Tab) 40 mg PO BID [facility] Stop: 03/03/23 20:59 Last Admin: 02/03/23 08:31 Dose: 40 mg Polyethylene Glycol (Polyethylene (Miralax) 17 Gm Pack) 17 gm PO DAILY [facility] Stop: 03/04/23 08:59 Last Admin: 02/03/23 08:37 Dose: Not Given Senna/Docusate Sodium (Docusate Sodium/Senna 50/8.6mg Tab) 2 tab PO HS [facility] Stop: 03/03/23 20:59 Last Admin: 02/02/23 20:05 Dose: Not Given Trazodone HCl (Trazodone Hcl 100 Mg Tab) 100 mg PO HS [facility] Stop: 03/03/23 20:59 Last Admin: 02/02/23 20:04 Dose: 100 mg
[2023-02-03] MEDS: MAGNESIUM OXIDE 400 MG TAB PO SCH ×2 (09:38→21:38)
--- NOTE | 2023-02-03 10:49 | Anesthesiology Consultation ---
Date of Service February 03, 2023 Assessment & Plan (1) Encounter for pre-operative examination: Chart Review Chart Review: Acceptable Risk for Surgery History Surgery Operation Date: 02/03/23 11:45 Proposed Procedures p T10-T12 Decompression and Fusion - Fco Lott DO Height/Weight Height: 5 ft 10 in Weight: 79.2 kg Allergies Allergy/AdvReac Type Severity Reaction Status Date / Time cat dander Allergy Unknown YORDY DOG Verified 09/22/22 14:40 NASAL [id number], ITCHY EYES grass pollen-perennial rye, Allergy Unknown TREES,GRASS-NASAL Verified 09/22/22 14:40 standar CONGESTION pollen extracts Allergy Unknown ITCHY Verified 09/22/22 14:40 EYES,NASAL CONGESTION Medications Home Medications Medication Instructions Recorded Confirmed Last Taken atorvastatin 40 mg tablet (Lipitor) 40 mg PO HS 03/12/21 02/01/23 01/31/23 lisinopril 40 mg tablet 40 mg PO QAM 03/12/21 02/01/23 02/01/23 omeprazole 20 mg capsule,delayed 20 mg PO BID 03/12/21 02/01/23 02/01/23 release am sildenafil 50 mg tablet (Viagra) 50 mg PO DAILY PRN Erectile 03/12/21 02/01/23 Unknown Dysfunction baclofen 10 mg tablet 10 mg PO TID PRN Muscle Spasm 02/01/23 02/01/23 02/01/23 am bupropion HCl 200 mg tablet,12 hr 200 mg PO BID 02/01/23 02/01/23 02/01/23 sustained-release buspirone 15 mg tablet 15 mg PO TID 02/01/23 02/01/23 02/01/23 am desonide 0.05 % topical cream 1 applic topical BID PRN psoriasis 02/01/23 02/01/23 Unknown hydrocortisone 2.5 % topical cream 1 applic topical BID PRN Itching 02/01/23 02/01/23 Unknown metoprolol tartrate 25 mg tablet 25 mg PO BID 02/01/23 02/01/23 Unknown tacrolimus 0.1 % topical ointment 1 applic topical BID PRN genital 02/01/23 02/01/23 Unknown psoriasis trazodone 100 mg tablet 100 mg PO HS 02/01/23 02/01/23 01/31/23 Active Medications Generic Name Dose Route Start Last Admin Trade Name Freq PRN Reason Stop Dose Admin Atorvastatin Calcium 40 mg 02/01/23 21:00 02/02/23 20:04 Atorvastatin 40 Mg Tab PO 03/03/23 20:59 40 mg HS [facility]OBANI Administration Bupropion HCl 200 mg 02/01/23 21:00 02/03/23 08:32 Bupropion Sr 100 Mg Tabcr PO 03/03/23 20:59 200 mg BID YOBANI Administration Buspirone HCl 15 mg 02/01/23 21:00 02/03/23 08:30 Buspirone 15 Mg Tab PO 03/03/23 20:59 15 mg TID YOBANI Administration Lisinopril 40 mg 02/02/23 09:00 02/03/23 08:31 Lisinopril 40 Mg Tab PO 03/04/23 08:59 40 mg QAM [facility]OBANI Administration Magnesium Oxide 400 mg 02/03/23 09:00 02/03/23 09:38 Magnesium Oxide 400 Mg Tab PO 03/05/23 08:59 400 mg BID YOBANI Administration Metoprolol Tartrate 25 mg 02/01/23 21:00 02/03/23 08:32 Metoprolol Tartrate 25 Mg Tab PO 03/03/23 20:59 25 mg BID [facility]OBANI Administration Morphine Sulfate 4 mg 02/01/23 17:36 02/02/23 18:07 Morphine Sulfate 4 Mg/Ml 1 Ml Carp\Vial IV 02/15/23 17:35 4 mg Q6H PRN Administration Pain (6,7,8,9,10) Oxycodone HCl 5 mg 02/01/23 17:36 02/03/23 07:22 Oxycodone Hcl Ir 5 Mg Tab (Immediate Release) PO 02/15/23 17:35 5 mg Q6H PRN Administration MODERATE Pain (4,5,6) & Pre PT Pantoprazole Sodium 40 mg 02/01/23 21:00 02/03/23 08:31 Pantoprazole 40 Mg Tab PO 03/03/23 20:59 40 mg BID YOBANI Administration Polyethylene Glycol 17 gm 02/02/23 09:00 02/03/23 08:37 Polyethylene (Miralax) 17 Gm Pack PO 03/04/23 08:59 Not Given DAILY [facility] Senna/Docusate Sodium 2 tab 02/01/23 21:00 02/02/23 20:05 Docusate Sodium/Senna 50/8.6mg Tab PO 03/03/23 20:59 Not Given HS [facility] Trazodone HCl 100 mg 02/01/23 21:00 02/02/23 20:04 Trazodone Hcl 100 Mg Tab PO 03/03/23 20:59 100 mg HS [facility] Administration NPO Date Last Intake of Fluids: 02/02/23 Time Last Intake of Fluids: 22:00 Date Last Intake of Solids: 02/02/23 Time Last Intake of Solids: 20:00 Past Medical History Medical History Anxiety Depression GERD (gastroesophageal reflux disease) HLD (hyperlipidemia) HTN (hypertension) Past Surgical History Surgical History History of back surgery Social History Smoking Status: Former smoker Do You Dip or Chew Tobacco: No Smoking End Date: quit smoking years ago Hx Alcohol Use: Yes Alcohol type: hard liquor alcohol intake frequency: a few times a week Hx Substance Use: No Physical Exam Vital Signs Last Vital Signs Temp 36.9 C 02/03/23 10:39 Pulse 66 02/03/23 10:39 Resp 18 02/03/23 10:39 BP 161/90 H 02/03/23 10:39 Pulse Ox 98 02/03/23 10:39 O2 Del Method Room Air 02/03/23 10:39 Testing Laboratory Results 02/03/23 05:57 02/03/23 05:57 Electrocardiogram Date: 02/01/23 Findings: + NSR @ (63) Chest X-Ray Date: 02/01/23 Findings: + NAD
[2023-02-03] MEDS ORDERED: DEXAMETHASONE SOD INJ 4 MG/ML VIAL ONE (10:55)
[2023-02-03] MEDS ORDERED: ONDANSETRON INJ 2 MG/ML 2 ML VIAL ONE (10:55)
[2023-02-03] MEDS ORDERED: LIDOCAINE 2% 2 ML VIAL/AMP(20MG/ML) INFIL ONE (10:55)
[2023-02-03] MEDS ORDERED: fentaNYL citrate PF 100 MCG/2 ML VIAL ONE (10:55)
[2023-02-03] MEDS ORDERED: ROCURONIUM BROMIDE 10 MG/ML 5 ML VIAL IV ONE ×3 (10:55→14:33)
[2023-02-03] MEDS ORDERED: MIDAZOLAM HCL 1 MG/ML 2ML VIAL ONE (10:55)
[2023-02-03] MEDS ORDERED: PROPOFOL IV EMULSION 10 MG/ML 20 ML VIAL IV ONE (10:55)
[2023-02-03] MEDS ORDERED: LABETALOL HCL IV 5 MG/ML 20ML IV PRN (11:12)
[2023-02-03] MEDS ORDERED: ATROPINE SULFATE 0.1 MG/ML 10ML SYR IV PRN (11:12)
[2023-02-03] MEDS ORDERED: ONDANSETRON INJ 2 MG/ML 2 ML VIAL IV PRN ×2 (11:12→16:11)
[2023-02-03] MEDS ORDERED: PROMETHAZINE HCL 12.5 MG in SODIUM CHLORIDE 0.9% 50 ML IV PRN ×2 (11:12→16:11)
--- NOTE | 2023-02-03 11:43 | History & Physical Bridge Note ---
Date of Service February 03, 2023 History & Physical Bridge Note I have examined the patient, reviewed the History & Physical and in the interval since the performance of the History & Physical I have noted the following changes of clinical significance: no changes noted Patient has severe thoracic spinal stenosis with myelomalacia and gross myelopathy on exam. He is declining rapidly. Subsequently he is here for emergent decompression T10-T12.
[2023-02-03] MEDS ORDERED: ceFAZolin 2000MG 2,000 MG/15 ML SYR IV ONE (11:52)
[2023-02-03] MEDS ORDERED: ceFAZolin 2,000 MG/15 ML IV PUSH IV ONE (11:53)
[2023-02-03] MEDS ORDERED: BUPIVACAINE/EPINEPHRINE 0.25% 1:200,000 30 ML VIAL ONE (12:19)
[2023-02-03] MEDS ORDERED: ceFAZolin 330 MG/ML 1 GM VIAL ONE (12:20)
[2023-02-03] MEDS ORDERED: DexMEDEtomidine HCL IV 100 MCG/ML VIAL IV ONE (12:27)
[2023-02-03] MEDS ORDERED: ALBUMIN HUMAN 5% 12.5 GM/250 ML VIAL IV ONE (12:27)
[2023-02-03] MEDS ORDERED: PHENYLEPHRINE HCL 10 MG/ML VIAL ONE (13:50)
[2023-02-03] MEDS ORDERED: ePHEDrine sulfate 50 MG/ML AMP ONE (13:50)
[2023-02-03] MEDS ORDERED: NEOSTIGMINE METHYLSULFATE 1 MG/ML 10ML VIAL ONE (14:30)
[2023-02-03] MEDS ORDERED: GLYCOPYRROLATE 0.2 MG/ML VIAL ONE (14:30)
[2023-02-03] MEDS ORDERED: FLOSEAL HEMOSTATIC MATRIX 10ML TOP ONE (14:31)
--- NOTE | 2023-02-03 14:37 | Operative Report ---
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 Myelopathy concurrent with and due to spinal stenosis of thoracic region I identified the patient and participated in the time-out.: Yes Procedure Operation Date: 02/03/23 11:45 Actual Procedures #1 lumbar decompression T10-T11 T11-T12. #2 posterior spinal fusion T10-T12. #3 please posterior instrumentation T10-T12. #4 placement locally harvested morselized autograft posterior gutters. #5 placement of Surgeon Fco Lott, Pcts Abdulaziz Higginbotham Estimated Blood Loss 50 Findings Consistent with Post-Op Diagnosis Specimens None Indications This is a 67-year-old male who presents yesterday emergency room with marked plan status inability to ambulate. Imaging demonstrates evidence of severe thoracic spinal stenosis with myelomalacia. Subsequently is here for emergent decompression. Description of Procedure Patient was met with identified informed consent obtained. Patient was then taken to the operative suite underwent ablation placed in a prone position on Biju table top Marc frame. All bony promises well-padded eyes inspected to ensure no external pressure was spinal. This point the thoracolumbar spine is prepped draped no sterile fashion. Sharp dissection with the assistance of Bovie cautery was performed down to and exposing the lamina and transverse processes of [id number]. Is to obtain retractors placed. Informed complete decompression laminectomy of T11 and T10 including bilateral medial facetectomies and foraminotomies addressing severe spinal stenosis. Pedicle screws then placed in [id number] bilaterally with assistance of fluoroscopy and properly sized usha locked into position. The transverse processes of T10 T11-12 burred to subcortical bleeding bone. Infuse collagen sponge mass graft locally harvested morselized autograft was placed in the posterior gutters. 15 round JONATHAN inserted. The incision was then closed with 1 Vicryl fascia 2-0 Vicryl subcutaneously and 4 Monocryl for final skin closure. Steri-Strips sterile dressings placed. Patient waken taken PACU stable condition. Please note spinal cord monitoring was utilized procedure no changes noted. Lastly Abdulaziz Higginbotham was present at the entire surgery and all the patient positioning complex portion of the surgery and final skin closure. I attest to the content of the Intraoperative Record and any orders documented therein. Any exceptions are noted below.
--- NOTE | 2023-02-03 14:57 | Fluoroscopy Report ---
FL thoracic spine 2V CLINICAL HISTORY: T10-T12 FUSION COMPARISON STUDY: MRI lumbar spine 02/01/2023 FLUOROSCOPY TIME: 32.1 seconds FLUOROSCOPY IMAGES: 2 EXPOSURE DOSE: 15.69 mGy FINDINGS: Post interbody usha and screw fusion hardware is noted at what is labeled the T10-T12 levels . The hardware appears intact. No unexpected opaque foreign bodies. IMPRESSION: Fluoroscopic assistance as above. ACT 112: Negative or not required by law. Electronically signed by: Isaias Aburto M.D. 02/03/2023 2:56 PM
[2023-02-03] MEDS: HYDROmorphone INJ 1 MG/ML SYRINGE IV PRN ×7 (15:08→17:34)
--- NOTE | 2023-02-03 15:43 | Anesthesiology Progress Note ---
Date of Service February 03, 2023 Anesthesia Post Procedure Vital Signs Vital Signs: Temp Pulse Pulse Pulse Resp BP Pulse Ox 02/03/23 15:35 73 15 124/79 96 02/03/23 15:25 67 15 126/79 96 02/03/23 15:15 70 18 116/80 97 02/03/23 15:05 66 16 132/88 95 02/03/23 14:56 36.6 C 71 15 154/83 H 95 02/03/23 10:39 36.9 C 66 18 161/90 H 98 02/03/23 07:21 37.0 C 74 16 160/93 H 94 02/02/23 20:01 36.8 C 70 18 157/90 H 96 O2 Del Method O2 Flow Rate 02/03/23 15:35 Nasal Cannula 2 02/03/23 15:25 Nasal Cannula 2 02/03/23 15:15 Nasal Cannula 2 02/03/23 15:05 Nasal Cannula 2 02/03/23 14:56 Nasal Cannula 2 02/03/23 10:39 Room Air 02/03/23 07:21 Room Air 02/02/23 20:01 Room Air Pain Intensity Back: Pain Intensity: 6 Transfer of Care Handoff Completed per policy Notes Mental Status: alert / awake / arousable Patient Amnestic to Procedure: Yes Nausea / Vomiting: adequately controlled Pain: adequately controlled Airway Patency, RR, SpO2: stable & adequate BP & HR: stable & adequate Hydration State: stable & adequate Anesthetic Complications: no major complications apparent
[2023-02-03] MEDS ORDERED: hydrOXYzine HCl 25 MG TAB PO PRN (16:11)
[2023-02-03] MEDS ORDERED: ACETAMINOPHEN 500 MG TAB PO PRN (16:11)
[2023-02-03] MEDS ORDERED: METOCLOPRAMIDE HCL INJ 5 MG/ML 2 ML VIAL IV PRN (16:11)
[2023-02-03] MEDS ORDERED: FAMOTIDINE 20 MG TAB PO PRN (16:11)
[2023-02-03] MEDS ORDERED: diphenhydrAMINE Capsule 25 MG CAP PO PRN (16:11)
[2023-02-03] MEDS ORDERED: ALUMINUM/MAGNESIUM SUSP 30 ML UDC PO PRN (16:11)
[2023-02-03] MEDS ORDERED: LORazepam 0.5 MG TAB PO PRN (16:11)
[2023-02-03] MEDS ORDERED: DO NOT ADMINISTER PNEUMOCOCCAL VACCINE PRN (16:11)
[2023-02-03] MEDS ORDERED: ACETAMINOPHEN 1,000 MG/100 ML VIAL IV PRN (16:11)
[2023-02-03] MEDS ORDERED: LORazepam 2 MG/1 ML VIAL IV PRN (16:11)
[2023-02-03] MEDS ORDERED: SOD PHOSPHATE/SOD BIPHOSPHATE ENEMA 132 ML BTL PR PRN (16:11)
[2023-02-03] MEDS ORDERED: MAGNESIUM HYDROXIDE SUSP 30 ML UDC PO PRN (16:11)
[2023-02-03] MEDS ORDERED: DO NOT ADMINISTER FLU VACCINE PRN (16:11)
[2023-02-03] MEDS ORDERED: NALOXONE HCL 0.4 MG/1 ML VIAL/CARP IV PRN (16:11)
[2023-02-03] MEDS ORDERED: HYDROmorphone INJ 0.5 MG/0.5 ML SYR IV PRN (16:11)
[2023-02-03] MEDS ORDERED: bisacodyL 10 MG SUPP PR PRN (16:11)
[2023-02-03] MEDS: LACTATED RINGER'S 1,000 ML IV SCH (16:39)
[2023-02-03] MEDS: dexAMETHasone 6 MG in SYRINGE 0 ML IV SCH (17:25)
[2023-02-03] MEDS: traMADol HCL 50 MG TABLET PO PRN (19:26)
[2023-02-03] MEDS ORDERED: DOCUSATE SODIUM/SENNA 50/8.6MG TAB PO SCH (21:00)
[2023-02-03] MEDS: ceFAZolin 2000MG 2,000 MG/15 ML SYR IV SCH (21:34)
[2023-02-03] MEDS: ATORVASTATIN 40 MG TAB PO SCH (21:38)
[2023-02-03] MEDS: traZODone HCL 100 MG TAB PO SCH (21:39)
[2023-02-03] MEDS: DOCUSATE SODIUM/SENNA 50/8.6MG TAB PO SCH (21:40)
--- NOTE | 2023-02-03 22:05 | Electrocardiogram Report ---
Test Reason : Blood Pressure : / mmHG Vent. Rate : 063 BPM Atrial Rate : 063 BPM P-R Int : 168 ms QRS Dur : 094 ms QT Int : 428 ms P-R-T Axes : 021 087 041 degrees QTc Int : 437 ms Normal sinus rhythm Normal ECG When compared with ECG of 02-DEC-2014 10:07, QRS axis Shifted right Confirmed by Huber Fernandez ([id number]) on 02/03/2023 10:05:11 PM Referred By: REFERRED SELF Confirmed By:Huber Fernandez
[2023-02-04] MEDS: dexAMETHasone 6 MG in SYRINGE 0 ML IV SCH ×2 (02:36→08:04)
[2023-02-04] MEDS: HYDROmorphone INJ 1 MG/ML SYRINGE IV PRN (02:36)
[2023-02-04 04:29] LABS: Basophils # (auto) 0.01 K/uL (0.00-0.20); Basophils % (auto) 0.1 %; Hematocrit (blood only) 36.4 % (42.0-52.0); Hemoglobin 12.7 g/dl (14.0-18.0); Immature Granulocytes # (auto) 0.05 K/uL (0.01-0.20); Immature Granulocytes % (auto) 0.5 %; Lymphocytes # (auto) 0.47 K/uL (1.20-3.40); Lymphocytes % (auto) 4.9 %; Mean Corpuscular Hemoglobin 34.5 pg (25.0-34.0); Mean Corpuscular Hgb Conc 34.9 g/dL (32.0-36.0); Mean Corpuscular Volume 98.9 fL (80.0-100.0); Mean Platelet Volume 9.2 fL (9.4-12.4); Monocytes # (auto) 0.45 K/uL (0.11-0.59); Monocytes % (auto) 4.7 %; Neutrophils # (auto) 8.57 K/uL (1.40-6.50); Neutrophils % (auto) 89.8 %; Platelet Count 205 K/uL (130-400); RDW Coefficient of Variation 12.3 % (11.5-14.5); RDW Standard Deviation 44.8 fL (36.4-46.3); Red Blood Count 3.68 M/uL (4.70-6.10); White Blood Count 9.55 K/ul (4.8-10.8)
[2023-02-04 05:28] LABS: BUN Creatinine Ratio 18.7 (10-20); Calcium 9.5 mg/dl (8.6-10.3); Est GFR (African American) 108.5 ml/min; Est GFR (Non-African American) 93.6 ml/min; Magnesium 1.6 mg/dl (1.7-2.4); Phosphorus 3.9 mg/dl (2.5-4.9); Potassium 4.6 mmol/L (3.5-5.1)
[2023-02-04] MEDS: ceFAZolin 2000MG 2,000 MG/15 ML SYR IV SCH (05:42)
[2023-02-04] MEDS: LACTATED RINGER'S 1,000 ML IV SCH (05:42)
[2023-02-04] MEDS: POLYETHYLENE (MIRALAX) 17 GM PACK PO SCH ×4 (05:43→23:00)
[2023-02-04] MEDS: oxyCODONE HCL IR 5 MG TAB (IMMEDIATE RELEASE) PO PRN ×3 (06:17→18:41)
[2023-02-04] MEDS: traMADol HCL 50 MG TABLET PO PRN ×2 (08:03→14:07)
[2023-02-04] MEDS: buPROPion SR 100 MG TABCR PO SCH ×2 (08:04→20:23)
[2023-02-04] MEDS: lisinopril 40 MG TAB PO SCH (08:04)
[2023-02-04] MEDS: PANTOprazole 40 MG TAB PO SCH ×2 (08:04→20:23)
[2023-02-04] MEDS: MAGNESIUM OXIDE 400 MG TAB PO SCH ×2 (08:05→20:23)
[2023-02-04] MEDS: METOPROLOL TARTRATE 25 MG TAB PO SCH ×2 (08:05→20:22)
[2023-02-04] MEDS: busPIRone 15 MG TAB PO SCH ×3 (08:05→20:23)
[2023-02-04] MEDS ORDERED: MAGNESIUM SULFATE / D5W 1 GM/100 ML BAG IV ONE (08:29)
--- NOTE | 2023-02-04 08:31 | Hospitalist Progress Note ---
Date of Service February 04, 2023 Assessment & Plan (1) Thoracic radiculopathy: Plan: Patient presenting for evaluation of back pain, right foot drop, bilateral leg weakness and numbness. Outpatient thoracic MRI from 01/27 -at T10/11, there is a broad-based midline disc protrusion measuring 4 mm in diameter causing moderate flattening of the cord. There is severe spinal canal stenosis secondary to the protrusion and bilateral facet osteoarthritis. --Images requested from 611 MRI Lumbar spine MRI obtained - 1. Multilevel degenerative changes are seen. There is up to severe left and moderate right bilateral neural foraminal stenosis. Mild canal stenosis is seen. 2. Partially visualized, there appears to be significant canal or neural foraminal stenosis in the lower thoracic spine most prominently at T10-T11. If there is concern for spinal cord impingement, dedicated thoracic spine MRI can be performed. Pain control with bowel regimen Spine Ortho consulted - pt seen by Dr. Lott - Patient has severe thoracic spinal stenosis with myelomalacia and gross myelopathy on exam. He is declining rapidly. Subsequently he is here for emergent decompression T10-T12. Pt is now s/p decompression and fusion T10-T12.(02/03/2023) Hypomagnesemia - replete and monitor (2) HTN (hypertension): Plan: Continue home metoprolol and lisinopril monitor BP (3) Anxiety: (4) Depression: Plan: Chronic, stable Continue home meds (5) HLD (hyperlipidemia): Plan: Chronic, stable Continue statin DVT PROPHYLAXIS SCDs , per orthopedics Admission and Anticipated Discharge Date Admission Date: February 01, 2023 Subjective Pt seen in follow up of back pain, now s/p spinal surgery Currently laying in bed in NAD No fever, chills, chest pain, shortness of breath or abd. pain Has lower back pain from surgery but numbness in his thighs is improved Still has Devi, passing gas. PT at the bedside Review of Systems Review of Systems: All systems reviewed & are unremarkable except as noted in Subjective Physical Exam Physical Exam: Constitutional: Alert orient x3; not in distress. Respiratory: normal respiratory effort, lungs clear to auscultation, no wheeze, rales, rhonchi. Normal insp/exp effort, no accessory muscle use Cardiovascular: RRR, no murmur, no edema Vessels: no JVD or carotid bruit Chest: normal inspection of chest Abdomen: normal bowel sounds, soft, nontender Musculoskeletal: moves extremities Skin: no rashes, warm and dry Neurologic: PERRL, EOMI, no face palsy, no dysarthria, +Foot drop present on right foot; moves extremities Psychiatric: A+Ox3, euthymic affect Results & Data Results & Data Vital Signs (Past 12 Hours) Vital Signs Temp Pulse Resp BP Pulse Ox O2 Del Method 02/04/23 07:12 36.5 C 75 16 145/75 H 96 Room Air 02/04/23 03:16 36.6 C 75 16 121/70 96 Room Air 02/04/23 00:31 37.0 C 81 16 121/76 94 Room Air 02/03/23 21:47 78 136/74 Laboratory Results 02/04/23 02/04/23 Range/Units 04:11 04:11 WBC 9.55 (4.8-10.8) K/ul RBC 3.68 L (4.70-6.10) M/uL Hgb 12.7 L (14.0-18.0) g/dl Hct 36.4 L (42.0-52.0) % MCV 98.9 (80.0-100.0) fL MCH 34.5 H (25.0-34.0) pg MCHC 34.9 (32.0-36.0) g/dL RDW Std Deviation 44.8 (36.4-46.3) fL RDW Coeff of Will 12.3 (11.5-14.5) % Plt Count 205 (130-400) K/uL MPV 9.2 L (9.4-12.4) fL Immature Gran % (Auto) 0.5 % Neut % (Auto) 89.8 % Lymph % (Auto) 4.9 % Hitchcock % (Auto) 4.7 % Eos % (Auto) 0.0 % Baso % (Auto) 0.1 % Neut # (Auto) 8.57 H (1.40-6.50) K/uL Lymph # (Auto) 0.47 L (1.20-3.40) K/uL Hitchcock # (Auto) 0.45 (0.11-0.59) K/uL Eos # (Auto) 0.00 (0.00-0.50) K/uL Baso # (Auto) 0.01 (0.00-0.20) K/uL Immature Gran # (Auto) 0.05 (0.01-0.20) K/uL Sodium 134 L (136-145) mmol/L Potassium 4.6 D (3.5-5.1) mmol/L Chloride 101 (98-107) mmol/L Carbon Dioxide 26 (21-32) mmol/L Anion Gap 7 (3-11) BUN 14 (6-23) mg/dl Creatinine 0.75 (0.6-1.4) mg/dl Est Cr Clr Drug Dosing 96.0 ml/min Est GFR ( Amer) 108.5 ml/min Est GFR (Non-Af Amer) 93.6 ml/min BUN/Creatinine Ratio 18.7 (10-20) Glucose 126 H (70-99(Fasting)) mg/dl Calcium 9.5 (8.6-10.3) mg/dl Phosphorus 3.9 (2.5-4.9) mg/dl Magnesium 1.6 L (1.7-2.4) mg/dl Medications Administered Current Inpatient Medications Acetaminophen (Acetaminophen 325 Mg Tab) 650 mg PO Q4H PRN PRN Reason: pain/fever Stop: 03/03/23 17:35 Acetaminophen (Acetaminophen 500 Mg Tab) 1,000 mg PO Q8H PRN PRN Reason: MILD Pain Scale 1,2,3 & Pre PT Stop: 03/05/23 16:10 Al Hydrox/Mg Hydrox/Simethicone (Aluminum/Magnesium Susp 30 Ml Udc) 30 ml PO Q6H PRN PRN Reason: Dyspepsia Stop: 03/05/23 16:10 Atorvastatin Calcium (Atorvastatin 40 Mg Tab) 40 mg PO HS YOBANI Stop: 03/03/23 20:59 Last Admin: 02/03/23 21:38 Dose: 40 mg Baclofen (Baclofen 10 Mg Tab) 10 mg PO TID PRN PRN Reason: Muscle Spasm Stop: 03/03/23 17:35 Bisacodyl (Bisacodyl 10 Mg Supp) 10 mg AR DAILY PRN PRN Reason: Constipation Stop: 03/05/23 16:10 Bupropion HCl (Bupropion Sr 100 Mg Tabcr) 200 mg PO BID YOBANI Stop: 03/03/23 20:59 Last Admin: 02/04/23 08:04 Dose: 200 mg Buspirone HCl (Buspirone 15 Mg Tab) 15 mg PO TID YOBANI Stop: 03/03/23 20:59 Last Admin: 02/04/23 08:05 Dose: 15 mg Diphenhydramine HCl (Diphenhydramine Capsule 25 Mg Cap) 25 mg PO Q6H PRN PRN Reason: Allergic Rhinitis/Insomnia Stop: 03/05/23 16:10 Famotidine (Famotidine 20 Mg Tab) 20 mg PO Q12H PRN PRN Reason: Dyspepsia Stop: 03/05/23 16:10 Hydromorphone HCl (Hydromorphone Inj 0.5 Mg/0.5 Ml Syr) 0.5 mg IV Q3H PRN PRN Reason: MODERATE Pain (Scale 4,5,6) & Pre PT Stop: 02/17/23 16:10 Hydromorphone HCl (Hydromorphone Inj 1 Mg/Ml Syringe) 1 mg IV Q3H PRN PRN Reason: SEVERE Pain (Scale 7,8,9,10) Stop: 02/17/23 16:10 Last Admin: 02/04/23 02:36 Dose: 1 mg Hydroxyzine HCl (Hydroxyzine Hcl 25 Mg Tab) 25 mg PO Q8H PRN PRN Reason: Anxiety Stop: 03/05/23 16:10 Acetaminophen (Ofirmev) 1,000 mg in 100 mls @ 400 mls/hr IV Q8H PRN PRN Reason: Pain Rating 1-3 & Pre PT Stop: 02/04/23 16:12 Promethazine HCl 12.5 mg/ (Sodium Chloride) 50.5 mls @ 202 mls/hr IV Q6H PRN PRN Reason: Nausea &/or Vomiting Stop: 03/05/23 16:10 Dexamethasone 6 mg/ Syringe 1.5 mls @ 1 mls/min IV Q8H YOBANI Stop: 02/04/23 08:47 Last Admin: 02/04/23 08:04 Dose: 1 mls/min Magnesium Sulfate/Dextrose (Magnesium Sulfate / D5w) 1 gm in 100 mls @ 50 mls/ hr IV ONE ONE Stop: 02/04/23 10:28 Influenza Virus Vaccine Quadrival (Do Not Administer Flu Vaccine) 1 each N/A PRN PRN PRN Reason: Notification Stop: 03/05/23 16:10 Lisinopril (Lisinopril 40 Mg Tab) 40 mg PO QAM [facility] Stop: 03/04/23 08:59 Last Admin: 02/04/23 08:04 Dose: 40 mg Lorazepam (Lorazepam 0.5 Mg Tab) 0.5 mg PO Q8H PRN PRN Reason: Sedation/Anxiety Stop: 03/05/23 16:10 Lorazepam (Lorazepam 2 Mg/1 Ml Vial) 0.5 mg IV Q8H PRN PRN Reason: Sedation/Anxiety Stop: 03/05/23 16:10 Magnesium Hydroxide (Magnesium Hydroxide Susp 30 Ml Udc) 30 ml PO Q24H PRN PRN Reason: Constipation Stop: 03/05/23 16:10 Magnesium Oxide (Magnesium Oxide 400 Mg Tab) 400 mg PO BID [facility] Stop: 03/05/23 08:59 Last Admin: 02/04/23 08:05 Dose: 400 mg Metoclopramide HCl (Metoclopramide Hcl Inj 5 Mg/Ml 2 Ml Vial) 10 mg IV Q6H PRN PRN Reason: Nausea &/or Vomiting Stop: 03/05/23 16:10 Metoprolol Tartrate (Metoprolol Tartrate 25 Mg Tab) 25 mg PO BID [facility] Stop: 03/03/23 20:59 Last Admin: 02/04/23 08:05 Dose: 25 mg Naloxone HCl (Naloxone Hcl 0.4 Mg/1 Ml Vial/Carp) 0.1 mg IV Q5M PRN PRN Reason: Oversedation/Resp depression Stop: 03/05/23 16:10 Ondansetron HCl (Ondansetron Inj 2 Mg/Ml 2 Ml Vial) 4 mg IV Q6H PRN PRN Reason: Nausea &/or Vomiting Stop: 03/05/23 16:10 Ondansetron HCl (Ondansetron 4 Mg Od Tab) 4 mg PO Q6H PRN PRN Reason: Nausea Stop: 03/05/23 16:10 Oxycodone HCl (Oxycodone Hcl Ir 5 Mg Tab (Immediate Release)) 5 - 10 mg PO Q4H PRN PRN Reason: Pain & Pre PT Stop: 02/17/23 16:10 Last Admin: 02/04/23 06:17 Dose: 10 mg Pantoprazole Sodium (Pantoprazole 40 Mg Tab) 40 mg PO BID YOBANI Stop: 03/03/23 20:59 Last Admin: 02/04/23 08:04 Dose: 40 mg Pneumococcal Polyvalent Vaccine (Do Not Administer Pneumococcal Vaccine) 1 each N/A PRN PRN PRN Reason: Notification Stop: 03/05/23 16:10 Polyethylene Glycol (Polyethylene (Miralax) 17 Gm Pack) 17 gm PO Q6 [facility]OB[facility] Stop: 03/06/23 05:59 Last Admin: 02/04/23 05:43 Dose: Not Given Senna/Docusate Sodium (Docusate Sodium/Senna 50/8.6mg Tab) 2 tab PO HS YOBANI Stop: 03/03/23 20:59 Last Admin: 02/03/23 21:40 Dose: Not Given Sodium Biphosphate/Sodium Phosphate (Sod Phosphate/Sod Biphosphate Enema 132 Ml Btl) 132 ml AR ONE PRN PRN Reason: Constipation Stop: 03/05/23 16:10 Tramadol HCl (Tramadol Hcl 50 Mg Tablet) 50 - 100 mg PO Q4H PRN PRN Reason: Moderate-Severe pain & Pre PT Stop: 03/05/23 16:10 Last Admin: 02/04/23 08:03 Dose: 100 mg Trazodone HCl (Trazodone Hcl 100 Mg Tab) 100 mg PO HS YOBANI Stop: 03/03/23 20:59 Last Admin: 02/03/23 21:39 Dose: 100 mg
--- NOTE | 2023-02-04 10:26 | Orthopedic Progress Note ---
Date of Service February 04, 2023 Assessment & Plan (1) Myelopathy concurrent with and due to spinal stenosis of thoracic region: Plan: At this point the patient is noting marked improvement from his preoperative status. He is able to walk 75 feet with physical therapy and a walker. We will continue therapy and consider rehab Monday. Admission and Anticipated Discharge Date Admission Date: February 01, 2023 Subjective Back pain controlled leg numbness improving. Physical Exam Physical Exam: Patient is just returned to bed after physical therapy. He continues to have a foot drop on the left but increased sensation to light touch to lower extremities. Results & Data Vital Signs (Past 12 Hours) Vital Signs Temp Pulse Resp BP Pulse Ox O2 Del Method 02/04/23 07:12 36.5 C 75 16 145/75 H 96 Room Air 02/04/23 03:16 36.6 C 75 16 121/70 96 Room Air 02/04/23 00:31 37.0 C 81 16 121/76 94 Room Air
[2023-02-04] MEDS: DOCUSATE SODIUM/SENNA 50/8.6MG TAB PO SCH (20:22)
[2023-02-04] MEDS: traZODone HCL 100 MG TAB PO SCH (20:22)
[2023-02-04] MEDS: ATORVASTATIN 40 MG TAB PO SCH (20:23)
[2023-02-05] MEDS: oxyCODONE HCL IR 5 MG TAB (IMMEDIATE RELEASE) PO PRN ×3 (01:41→12:03)
[2023-02-05] MEDS: POLYETHYLENE (MIRALAX) 17 GM PACK PO SCH ×4 (06:14→23:21)
[2023-02-05 06:32] LABS: Hematocrit (blood only) 34.2 % (42.0-52.0); Hemoglobin 12.2 g/dl (14.0-18.0); Mean Corpuscular Hemoglobin 34.9 pg (25.0-34.0); Mean Corpuscular Hgb Conc 35.7 g/dL (32.0-36.0); Mean Corpuscular Volume 97.7 fL (80.0-100.0); Mean Platelet Volume 9.4 fL (9.4-12.4); Platelet Count 187 K/uL (130-400); RDW Coefficient of Variation 12.4 % (11.5-14.5); RDW Standard Deviation 44.6 fL (36.4-46.3); White Blood Count 8.57 K/ul (4.8-10.8)
[2023-02-05 06:50] LABS: BUN Creatinine Ratio 22.1 (10-20); Calcium 8.9 mg/dl (8.6-10.3); Creatinine Clr Calc Pharmacy 105.9 ml/min; Est GFR (African American) 112.9 ml/min; Est GFR (Non-African American) 97.4 ml/min; Magnesium 1.8 mg/dl (1.7-2.4); Potassium 3.8 mmol/L (3.5-5.1)
--- NOTE | 2023-02-05 07:39 | Hospitalist Progress Note ---
Date of Service February 05, 2023 Assessment & Plan (1) Thoracic radiculopathy: Plan: Patient presenting for evaluation of back pain, right foot drop, bilateral leg weakness and numbness. Outpatient thoracic MRI from 01/27 -at T10/11, there is a broad-based midline d isc protrusion measuring 4 mm in diameter causing moderate flattening of the cord. There is severe spinal canal stenosis secondary to the protrusion and bilateral facet osteoarthritis. --Images requested from [facility] MRI Lumbar spine MRI obtained - 1. Multilevel degenerative changes are seen. There is up to severe left and moderate right bilateral neural foraminal stenosis. Mild canal stenosis is seen. 2. Partially visualized, there appears to be significant canal or neural foraminal stenosis in the lower thoracic spine most prominently at T10-T11. If there is concern for spinal cord impingement, dedicated thoracic spine MRI can be performed. Pain control with bowel regimen Spine Ortho consulted - pt seen by Dr. Lott - Patient has severe thoracic spinal stenosis with myelomalacia and gross myelopathy on exam. He is declining rapidly. Subsequently he is here for emergent decompression T10-T12. Pt is now s/p decompression and fusion T10-T12.(02/03/2023) Numbness in thighs improved. Ambulation also improved now. Pt tolerated procedure well. Hypomagnesemia - replete and monitor (2) HTN (hypertension): Plan: Continue home metoprolol and lisinopril monitor BP (3) Anxiety: (4) Depression: Plan: Chronic, stable Continue home meds (5) HLD (hyperlipidemia): Plan: Chronic, stable Continue statin DVT PROPHYLAXIS SCDs , per orthopedics Admission and Anticipated Discharge Date Admission Date: February 01, 2023 Subjective Pt seen in follow up of back pain, now s/p spinal surgery Currently sitting up in chair in NAD No fever, chills, chest pain, shortness of breath or abd. pain Has lower back pain from surgery but numbness in his thighs is improved. Says he is able to ambulate now - he was not able to ambulate when he came to the hospital. Review of Systems Review of Systems: All systems reviewed & are unremarkable except as noted in Subjective Physical Exam Physical Exam: Constitutional: Alert orient x3; not in distress. Respiratory: normal respiratory effort, lungs clear to auscultation, no wheeze, rales, rhonchi. Normal insp/exp effort, no accessory muscle use Cardiovascular: RRR, no murmur, no edema Vessels: no JVD or carotid bruit Chest: normal inspection of chest Abdomen: normal bowel sounds, soft, nontender Musculoskeletal: moves extremities Skin: no rashes, warm and dry Neurologic: PERRL, EOMI, no face palsy, no dysarthria, +Foot drop present on right foot; moves extremities Psychiatric: A+Ox3, euthymic affect Results & Data Results & Data Vital Signs (Past 12 Hours) Vital Signs Temp Pulse Resp BP Pulse Ox O2 Del Method 02/04/23 19:43 36.4 C L 72 18 146/86 H 96 Room Air Laboratory Results 02/05/23 02/05/23 Range/Units 06:06 06:06 WBC 8.57 (4.8-10.8) K/ul RBC 3.50 L (4.70-6.10) M/uL Hgb 12.2 L (14.0-18.0) g/dl Hct 34.2 L (42.0-52.0) % MCV 97.7 (80.0-100.0) fL MCH 34.9 H (25.0-34.0) pg MCHC 35.7 (32.0-36.0) g/dL RDW Std Deviation 44.6 (36.4-46.3) fL RDW Coeff of Will 12.4 (11.5-14.5) % Plt Count 187 (130-400) K/uL MPV 9.4 (9.4-12.4) fL Sodium 139 (136-145) mmol/L Potassium 3.8 (3.5-5.1) mmol/L Chloride 105 (98-107) mmol/L Carbon Dioxide 28 (21-32) mmol/L Anion Gap 6 (3-11) BUN 15 (6-23) mg/dl Creatinine 0.68 (0.6-1.4) mg/dl Est Cr Clr Drug Dosing 105.9 ml/min Est GFR ( Amer) 112.9 ml/min Est GFR (Non-Af Amer) 97.4 ml/min BUN/Creatinine Ratio 22.1 H (10-20) Glucose 99 (70-99(Fasting)) mg/dl Calcium 8.9 (8.6-10.3) mg/dl Magnesium 1.8 (1.7-2.4) mg/dl Medications Administered Current Inpatient Medications Acetaminophen (Acetaminophen 325 Mg Tab) 650 mg PO Q4H PRN PRN Reason: pain/fever Stop: 03/03/23 17:35 Acetaminophen (Acetaminophen 500 Mg Tab) 1,000 mg PO Q8H PRN PRN Reason: MILD Pain Scale 1,2,3 & Pre PT Stop: 03/05/23 16:10 Last Admin: 02/04/23 18:41 Dose: 1,000 mg Al Hydrox/Mg Hydrox/Simethicone (Aluminum/Magnesium Susp 30 Ml Udc) 30 ml PO Q6H PRN PRN Reason: Dyspepsia Stop: 03/05/23 16:10 Atorvastatin Calcium (Atorvastatin 40 Mg Tab) 40 mg PO HS YOBANI Stop: 03/03/23 20:59 Last Admin: 02/04/23 20:23 Dose: 40 mg Baclofen (Baclofen 10 Mg Tab) 10 mg PO TID PRN PRN Reason: Muscle Spasm Stop: 03/03/23 17:35 Bisacodyl (Bisacodyl 10 Mg Supp) 10 mg NH DAILY PRN PRN Reason: Constipation Stop: 03/05/23 16:10 Bupropion HCl (Bupropion Sr 100 Mg Tabcr) 200 mg PO BID YOBANI Stop: 03/03/23 20:59 Last Admin: 02/04/23 20:23 Dose: 200 mg Buspirone HCl (Buspirone 15 Mg Tab) 15 mg PO TID YOBANI Stop: 03/03/23 20:59 Last Admin: 02/04/23 20:23 Dose: 15 mg Diphenhydramine HCl (Diphenhydramine Capsule 25 Mg Cap) 25 mg PO Q6H PRN PRN Reason: Allergic Rhinitis/Insomnia Stop: 03/05/23 16:10 Famotidine (Famotidine 20 Mg Tab) 20 mg PO Q12H PRN PRN Reason: Dyspepsia Stop: 03/05/23 16:10 Hydromorphone HCl (Hydromorphone Inj 0.5 Mg/0.5 Ml Syr) 0.5 mg IV Q3H PRN PRN Reason: MODERATE Pain (Scale 4,5,6) & Pre PT Stop: 02/17/23 16:10 Hydromorphone HCl (Hydromorphone Inj 1 Mg/Ml Syringe) 1 mg IV Q3H PRN PRN Reason: SEVERE Pain (Scale 7,8,9,10) Stop: 02/17/23 16:10 Last Admin: 02/04/23 02:36 Dose: 1 mg Hydroxyzine HCl (Hydroxyzine Hcl 25 Mg Tab) 25 mg PO Q8H PRN PRN Reason: Anxiety Stop: 03/05/23 16:10 Promethazine HCl 12.5 mg/ (Sodium Chloride) 50.5 mls @ 202 mls/hr IV Q6H PRN PRN Reason: Nausea &/or Vomiting Stop: 03/05/23 16:10 Influenza Virus Vaccine Quadrival (Do Not Administer Flu Vaccine) 1 each N/A PRN PRN PRN Reason: Notification Stop: 03/05/23 16:10 Lisinopril (Lisinopril 40 Mg Tab) 40 mg PO QAM [facility] Stop: 03/04/23 08:59 Last Admin: 02/04/23 08:04 Dose: 40 mg Lorazepam (Lorazepam 0.5 Mg Tab) 0.5 mg PO Q8H PRN PRN Reason: Sedation/Anxiety Stop: 03/05/23 16:10 Lorazepam (Lorazepam 2 Mg/1 Ml Vial) 0.5 mg IV Q8H PRN PRN Reason: Sedation/Anxiety Stop: 03/05/23 16:10 Magnesium Hydroxide (Magnesium Hydroxide Susp 30 Ml Udc) 30 ml PO Q24H PRN PRN Reason: Constipation Stop: 03/05/23 16:10 Magnesium Oxide (Magnesium Oxide 400 Mg Tab) 400 mg PO BID [facility] Stop: 03/05/23 08:59 Last Admin: 02/04/23 20:23 Dose: 400 mg Metoclopramide HCl (Metoclopramide Hcl Inj 5 Mg/Ml 2 Ml Vial) 10 mg IV Q6H PRN PRN Reason: Nausea &/or Vomiting Stop: 03/05/23 16:10 Metoprolol Tartrate (Metoprolol Tartrate 25 Mg Tab) 25 mg PO BID [facility] Stop: 03/03/23 20:59 Last Admin: 02/04/23 20:22 Dose: 25 mg Naloxone HCl (Naloxone Hcl 0.4 Mg/1 Ml Vial/Carp) 0.1 mg IV Q5M PRN PRN Reason: Oversedation/Resp depression Stop: 03/05/23 16:10 Ondansetron HCl (Ondansetron Inj 2 Mg/Ml 2 Ml Vial) 4 mg IV Q6H PRN PRN Reason: Nausea &/or Vomiting Stop: 03/05/23 16:10 Ondansetron HCl (Ondansetron 4 Mg Od Tab) 4 mg PO Q6H PRN PRN Reason: Nausea Stop: 03/05/23 16:10 Oxycodone HCl (Oxycodone Hcl Ir 5 Mg Tab (Immediate Release)) 5 - 10 mg PO Q4H PRN PRN Reason: Pain & Pre PT Stop: 02/17/23 16:10 Last Admin: 02/05/23 06:14 Dose: 5 mg Pantoprazole Sodium (Pantoprazole 40 Mg Tab) 40 mg PO BID [facility] Stop: 03/03/23 20:59 Last Admin: 02/04/23 20:23 Dose: 40 mg Pneumococcal Polyvalent Vaccine (Do Not Administer Pneumococcal Vaccine) 1 each N/A PRN PRN PRN Reason: Notification Stop: 03/05/23 16:10 Polyethylene Glycol (Polyethylene (Miralax) 17 Gm Pack) 17 gm PO Q6 [facility] Stop: 03/06/23 05:59 Last Admin: 02/05/23 06:14 Dose: 17 gm Senna/Docusate Sodium (Docusate Sodium/Senna 50/8.6mg Tab) 2 tab PO HS [facility] Stop: 03/03/23 20:59 Last Admin: 02/04/23 20:22 Dose: Not Given Sodium Biphosphate/Sodium Phosphate (Sod Phosphate/Sod Biphosphate Enema 132 Ml Btl) 132 ml [place] ONE PRN PRN Reason: Constipation Stop: 03/05/23 16:10 Tramadol HCl (Tramadol Hcl 50 Mg Tablet) 50 - 100 mg PO Q4H PRN PRN Reason: Moderate-Severe pain & Pre PT Stop: 03/05/23 16:10 Last Admin: 02/04/23 14:07 Dose: 100 mg Trazodone HCl (Trazodone Hcl 100 Mg Tab) 100 mg PO HS [facility] Stop: 03/03/23 20:59 Last Admin: 02/04/23 20:22 Dose: 100 mg
[2023-02-05] MEDS: MAGNESIUM OXIDE 400 MG TAB PO SCH ×2 (07:55→21:10)
[2023-02-05] MEDS: lisinopril 40 MG TAB PO SCH (07:55)
[2023-02-05] MEDS: buPROPion SR 100 MG TABCR PO SCH ×2 (07:55→21:10)
[2023-02-05] MEDS: PANTOprazole 40 MG TAB PO SCH ×2 (07:56→21:11)
[2023-02-05] MEDS: busPIRone 15 MG TAB PO SCH ×3 (07:56→21:11)
[2023-02-05] MEDS: METOPROLOL TARTRATE 25 MG TAB PO SCH ×2 (07:56→21:10)
[2023-02-05] MEDS: traMADol HCL 50 MG TABLET PO PRN ×2 (07:59→17:06)
--- NOTE | 2023-02-05 10:01 | Orthopedic Progress Note ---
Date of Service February 05, 2023 Assessment & Plan (1) Myelopathy concurrent with and due to spinal stenosis of thoracic region: Plan: At this time we will maintain the JONATHAN drain and consider discharge to rehab tomorrow. Admission and Anticipated Discharge Date Admission Date: February 01, 2023 Subjective Back pain controlled leg symptoms improving Physical Exam Physical Exam: Patient is ambulating halls with a walker. He exhibits a foot drop on the right. Results & Data Vital Signs (Past 12 Hours) Vital Signs Temp Pulse Resp BP Pulse Ox O2 Del Method 02/05/23 07:54 37.0 C 72 18 124/78 95 Room Air
[2023-02-05] MEDS: DOCUSATE SODIUM/SENNA 50/8.6MG TAB PO SCH (21:09)
[2023-02-05] MEDS: traZODone HCL 100 MG TAB PO SCH (21:11)
[2023-02-05] MEDS: ATORVASTATIN 40 MG TAB PO SCH (21:11)
[2023-02-05] MEDS: ONDANSETRON 4 MG OD TAB PO PRN (21:14)
[2023-02-06] MEDS: traMADol HCL 50 MG TABLET PO PRN ×3 (03:25→18:48)
[2023-02-06] MEDS: POLYETHYLENE (MIRALAX) 17 GM PACK PO SCH ×2 (06:33→12:38)
[2023-02-06 07:11] LABS: BUN Creatinine Ratio 22.4 (10-20); Creatinine Clr Calc Pharmacy 107.4 ml/min; Est GFR (African American) 113.6 ml/min; Magnesium 1.8 mg/dl (1.7-2.4); Potassium 4.4 mmol/L (3.5-5.1)
[2023-02-06] MEDS: ONDANSETRON 4 MG OD TAB PO PRN (07:49)
[2023-02-06] MEDS: lisinopril 40 MG TAB PO SCH (08:13)
[2023-02-06] MEDS: busPIRone 15 MG TAB PO SCH ×3 (08:13→20:51)
[2023-02-06] MEDS: buPROPion SR 100 MG TABCR PO SCH ×2 (08:14→20:51)
[2023-02-06] MEDS: METOPROLOL TARTRATE 25 MG TAB PO SCH ×2 (08:14→20:51)
[2023-02-06] MEDS: MAGNESIUM OXIDE 400 MG TAB PO SCH ×2 (08:14→20:51)
[2023-02-06] MEDS: PANTOprazole 40 MG TAB PO SCH ×2 (08:15→20:51)
--- NOTE | 2023-02-06 10:15 | Orthopedic Progress Note ---
Date of Service February 06, 2023 Assessment & Plan (1) Myelopathy concurrent with and due to spinal stenosis of thoracic region: Plan: Cuong is postop day 3 status post T10-T12 decompression and fusion secondary to cord impingement. We will see if we can obtain an AFO due to his foot drop while he is an inpatient. We will also reconsult family welfare social work professor. Patient would most likely benefit from a rehab stay before being discharged home due to his lower extremity weakness. DVT prophylaxis is in the form of teds and SCDs Admission and Anticipated Discharge Date Admission Date: February 01, 2023 Subjective Cuong is postoperative day 3 status post T10-T12 decompression and fusion. He had a fall overnight. This is due to leg weakness. No increase or change in pain. Still try to determine if he is should go home with home health versus rehab. Yesterday in physical therapy is able to walk a total of 145 feet Review of Systems Review of Systems: All systems reviewed & are unremarkable except as noted in HPI & below Physical Exam Physical Exam: Alert and oriented x3 Foot drop noted on the left unchanged Calf soft nontender bilaterally Results & Data Vital Signs (Past 12 Hours) Vital Signs Temp Pulse Resp BP Pulse Ox O2 Del Method 02/06/23 07:16 36.9 C 74 18 122/74 94 Room Air
--- NOTE | 2023-02-06 10:34 | XRay Report ---
KUB HISTORY: Acute nausea nausea COMPARISON: None. FINDINGS: Gaseous distention of the large bowel measures up to 6.7 cm. Moderate fecal retention in th e left hemicolon. Mild gaseous distention of the small bowel also noted. Renal shadows are obscured by bowel gas. No pneumoperitoneum or pneumatosis. Thoracolumbar fusion hardware. No fracture. IMPRESSION: Gaseous distended loops of large and small bowel may represent an ileus. Distal obstruction is an add itional consideration. Follow-up recommended. ACT 112: Negative or not required by law. The above report was generated using voice recognition software. It may contain grammatical, syntax o r spelling errors. Electronically signed by: Isaias Aburto M.D. 02/06/2023 10:32 AM
[2023-02-06] MEDS: oxyCODONE HCL IR 5 MG TAB (IMMEDIATE RELEASE) PO PRN ×2 (11:18→20:51)
--- NOTE | 2023-02-06 11:44 | Hospitalist Progress Note ---
Date of Service February 06, 2023 Assessment & Plan (1) Thoracic radiculopathy: Plan: Patient presenting for evaluation of back pain, right foot drop, bilateral leg weakness and numbness. Outpatient thoracic MRI from 01/27 -at T10/11, there is a broad-based midline di sc protrusion measuring 4 mm in diameter causing moderate flattening of the cord. There is severe spinal canal stenosis secondary to the protrusion and bilateral facet osteoarthritis. Lumbar spine MRI - Multilevel degenerative changes are seen. There is up to severe left and moderate right bilateral neural foraminal stenosis. Mild canal stenosis is seen. Partially visualized, there appears to be significant canal or neural foraminal stenosis in the lower thoracic spine most prominently at T10- T11. If there is concern for spinal cord impingement, dedicated thoracic spine MRI can be performed. Spine Ortho consult -recommended emergent decompression POD #3 decompression and fusion T10-T12 Activity and wound care orders as per ortho Pain control with bowel regimen PT/OT Monitor H/H for acute blood loss anemia and transfuse blood products PRN EBL 50 cc, JONATHAN output 450 cc Hgb 12.2 on 02/05 Weakness and numbness improving. May need rehab. (2) Ileus: Plan: Patient complaining of nausea, abdominal distention, no BM x 7 days KUB - Gaseous distended loops of large and small bowel may represent an ileus. Distal obstruction is an additional consideration. N.p.o., CT ABD/pelvis Consider general surgery consult (3) HTN (hypertension): Plan: Chronic, stable Continue home metoprolol and lisinopril (4) Anxiety: (5) Depression: Plan: Chronic, stable Continue home meds (6) HLD (hyperlipidemia): Plan: Chronic, stable Continue statin DVT PROPHYLAXIS TEDs/SCDs as per spine Ortho Dispo -now pending development of ileus/possible SBO, may need rehab placement at discharge Patient seen in collaboration with Dr. Erickson. Admission and Anticipated Discharge Date Admission Date: February 01, 2023 Supervising Physician Co-Signing Physician Notes Pt seen and examined by me, care coordinated w/ Misael KELLER. Yesterday on my evaluation pt is feeling better, ambulates more, overall improved since coming to the hospital. Overnight however he slipped from the bed, says he did not hit anything hard, and fell on his bottom. No BM, and reports abdominal distention. KUB obtained and concerning for ileus. Pt made NPO, IVF started, CT abd/pelvis also ordered. He is otherwise alert oriented and able to provide history. Denies fever, chills, chest pain, shortness of breath. Heart sounds regular, breath sounds C TAB, = bowel sounds sluggish. abdomen is distended but soft, mildly diffusely tender to palp. Pt moves extremities. Continue to closely monitor, follow CT, bowel rest. MD Dre Subjective Follow-up for thoracic radiculopathy, s/p T10-T12 decompression and fusion. Patient had a fall overnight, states that he went to stand up from bed to go to the bathroom and his legs were weak and he slid to the floor. Denies striking his head. Patient also reporting nausea and abdominal distention. No vomiting or abdominal pain. Reports no BM in 7 days. No chest pain or shortness of breath. Denies lightheadedness and dizziness. Review of Systems Review of Systems: ROS per HPI, all other systems reviewed and negative Physical Exam Constitutional: WD/WN, vitals as above ENMT: external ear and nose normal, oropharynx normal Respiratory: normal respiratory effort, lungs clear to auscultation Cardiovascular: Rate/Rhythm: regular rate and regular rhythm Vessels: normal peripheral pulses Extremities: no edema Gastrointestinal (Abdomen): Inspection/Auscultation: + abdomen distended and normal bowel sounds Percussion/Palpation: abdomen soft; abdomen nontender Musculoskeletal: s/p back surgery, right leg weakness/foot drop remains present Skin: no rashes, warm and dry Psychiatric: A+Ox3, euthymic affect Results & Data Results & Data Vital Signs (Past 12 Hours) Vital Signs Temp Pulse Resp BP Pulse Ox O2 Del Method 02/06/23 07:16 36.9 C 74 18 122/74 94 Room Air Laboratory Results [facility] 02/06/23 06:17 Sodium 137 Potassium 4.4 Chloride 101 Carbon Dioxide 31 BUN 15 Creatinine 0.67 Glucose 97 Calcium 9.0 Diagnostic Findings KUB X-Ray 02/06/23 08:36 KUB HISTORY: Acute nausea nausea COMPARISON: None. FINDINGS: Gaseous distention of the large bowel measures up to 6.7 cm. Moderate fecal retention in the left hemicolon. Mild gaseous distention of the small bowel also noted. Renal shadows are obscured by bowel gas. No pneumoperitoneum or pneumatosis. Thoracolumbar fusion hardware. No fracture. IMPRESSION: Gaseous distended loops of large and small bowel may represent an ileus. Distal obstruction is an additional consideration. Follow-up recommended. ACT 112: Negative or not required by law. The above report was generated using voice recognition software. It may contain grammatical, syntax or spelling errors. Electronically signed by: Isaias Aburto M.D. 02/06/2023 10:32 AM
--- NOTE | 2023-02-06 12:28 | CT Scan Report ---
CT abd pelvis wo con CLINICAL HISTORY: ileus vs obstruction TECHNIQUE: Helical axial images of the abdomen and pelvis were obtained. Automated dose lowering tech niques and/or adjustment according to patient size were utilized for this exam. This exam was perfor med without intravenous contrast. CT DOSE: 1206.78 mGy.cm COMPARISON: Comparison is made to abdomen radiograph 02/06/2023 FINDINGS: Lower chest: Bibasilar atelectasis versus scarring is seen. Liver: Unremarkable. No focal lesions are seen. Gallbladder and biliary tree: No calcified gallstones. Normal caliber wall. No intra- or extrahepatic biliary ductal dilation. Pancreas: Unremarkable, no focal lesions. Spleen: Unremarkable. Adrenals: Unremarkable. Kidneys and ureters: Perinephric stranding is noted bilaterally. Hypodensities are seen which may rep resent stones. Bladder: Diffuse homogeneous wall thickening is seen. Reproductive organs: Prostatic calcifications are seen which may represent prior hemorrhage or granul omatous disease. Bowel: There is a small hiatal hernia. The appendix is unremarkable. Numerous gas-distended loops of large bowel are seen, slightly redundant. Small bowel is not distended. Lymph nodes Retroperitoneal: Unremarkable. Pelvic: Unremarkable. Mesenteric: Unremarkable. Peritoneum: Normal. Vessels: Atherosclerotic calcifications are seen. Abdominal wall: A fat-containing umbilical hernia is seen. Bones: Degenerative changes in the visualized spine. Fixation hardware is seen in the lower thoracic and lumbar spine. IMPRESSION: Multiple gas-distended loops of large bowel are seen. No small bowel obstruction is seen. ACT 112: Negative or not required by law. Electronically signed by: Maurilio Brown M.D. 02/06/2023 12:27 PM
[2023-02-06] MEDS: SODIUM CHLORIDE 0.9% 1,000 ML IV SCH ×2 (12:45→20:51)
[2023-02-06] MEDS: ATORVASTATIN 40 MG TAB PO SCH (20:51)
[2023-02-06] MEDS: traZODone HCL 100 MG TAB PO SCH (20:51)
[2023-02-07] MEDS: SODIUM CHLORIDE 0.9% 1,000 ML IV SCH (04:31)
[2023-02-07] MEDS: oxyCODONE HCL IR 5 MG TAB (IMMEDIATE RELEASE) PO PRN ×2 (04:32→08:25)
[2023-02-07 06:30] LABS: Hemoglobin 11.7 g/dl (14.0-18.0); Mean Corpuscular Hgb Conc 34.4 g/dL (32.0-36.0); Mean Corpuscular Volume 101.8 fL (80.0-100.0); Mean Platelet Volume 9.5 fL (9.4-12.4); Platelet Count 181 K/uL (130-400); RDW Coefficient of Variation 12.2 % (11.5-14.5); RDW Standard Deviation 45.6 fL (36.4-46.3); Red Blood Count 3.34 M/uL (4.70-6.10); White Blood Count 6.85 K/ul (4.8-10.8)
[2023-02-07 06:43] LABS: BUN Creatinine Ratio 19.4 (10-20); Calcium 8.6 mg/dl (8.6-10.3); Creatinine Clr Calc Pharmacy 107.4 ml/min; Est GFR (African American) 113.6 ml/min; Magnesium 1.6 mg/dl (1.7-2.4); Phosphorus 3.3 mg/dl (2.5-4.9); Potassium 4.1 mmol/L (3.5-5.1)
[2023-02-07] MEDS ORDERED: MAGNESIUM SULFATE / D5W 1 GM/100 ML BAG IV ONE (07:13)
[2023-02-07] MEDS: METOPROLOL TARTRATE 25 MG TAB PO SCH ×2 (07:44→20:36)
[2023-02-07] MEDS: lisinopril 40 MG TAB PO SCH (07:44)
[2023-02-07] MEDS: buPROPion SR 100 MG TABCR PO SCH ×2 (07:45→20:36)
[2023-02-07] MEDS: busPIRone 15 MG TAB PO SCH ×3 (07:45→20:36)
[2023-02-07] MEDS: MAGNESIUM OXIDE 400 MG TAB PO SCH ×2 (07:45→20:37)
[2023-02-07] MEDS: PANTOprazole 40 MG TAB PO SCH ×2 (07:45→20:37)
--- NOTE | 2023-02-07 08:55 | Orthopedic Progress Note ---
Date of Service February 07, 2023 Assessment & Plan (1) Myelopathy concurrent with and due to spinal stenosis of thoracic region: Plan: This time we will continue physical therapy. From orthopedic standpoint he is cleared to return home with home health. Admission and Anticipated Discharge Date Admission Date: February 01, 2023 Subjective Back pain controlled leg symptoms steadily improving. Physical Exam Physical Exam: Patient is currently in bed. Has good strength testing left lower extremity. Persistent foot drop on the right. Sensory symmetric and intact. Results & Data Vital Signs (Past 12 Hours) Vital Signs Temp Pulse Resp BP Pulse Ox O2 Del Method 02/07/23 08:15 36.6 C 81 18 165/93 H 97 Room Air 02/07/23 08:04 Room Air
--- NOTE | 2023-02-07 13:59 | Hospitalist Progress Note ---
Date of Service February 07, 2023 Assessment & Plan (1) Thoracic radiculopathy: Plan: Patient presenting for evaluation of back pain, right foot drop, bilateral leg weakness and numbness. Outpatient thoracic MRI from 01/27 -at T10/11, there is a broad-based midline di sc protrusion measuring 4 mm in diameter causing moderate flattening of the cord. There is severe spinal canal stenosis secondary to the protrusion and bilateral facet osteoarthritis. Lumbar spine MRI - Multilevel degenerative changes are seen. There is up to severe left and moderate right bilateral neural foraminal stenosis. Mild canal stenosis is seen. Partially visualized, there appears to be significant canal or neural foraminal stenosis in the lower thoracic spine most prominently at T10- T11. If there is concern for spinal cord impingement, dedicated thoracic spine MRI can be performed. Spine Ortho consult -recommended emergent decompression POD #4 decompression and fusion T10-T12 Activity and wound care orders as per ortho Pain control with bowel regimen PT/OT Monitor H/H for acute blood loss anemia and transfuse blood products PRN EBL 50 cc, JONATHAN output 450 cc Hgb 11.7, stable Weakness and numbness improving however likely will need rehab. Patient now agreeable. CM following. (2) Ileus: Plan: Nausea resolved, BM last evening Start clear liquids, advance diet as tolerated 02/06: Patient complaining of nausea, abdominal distention, no BM x 7 days KUB - Gaseous distended loops of large and small bowel may represent an ileus. Distal obstruction is an additional consideration. CT abd/pelvis - Multiple gas-distended loops of large bowel are seen. No small bowel obstruction is seen. (3) HTN (hypertension): Plan: Chronic, stable Continue home metoprolol and lisinopril (4) Anxiety: (5) Depression: Plan: Chronic, stable Continue home meds (6) HLD (hyperlipidemia): Plan: Chronic, stable Continue statin DVT PROPHYLAXIS TEDs/SCDs as per spine Ortho Dispo -PT/OT recommending rehab, patient now agreeable. Referrals pending. CM following. Patient seen in collaboration with Dr. Erickson. Admission and Anticipated Discharge Date Admission Date: February 01, 2023 Supervising Physician Co-Signing Physician Notes Pt seen and examined by me, care coordinated w/ Misael KELLER. Pt is feeling better, nausea resolved, no abd. pain. He had BM. No obstruction on CT obtained yesterday. Denies fever, chills, chest pain, shortness of breath. Heart sounds regular, breath sounds CTAB, +bowel sounds. abdomen is mildly distended but soft, nontender to palp. Pt moves extremities. Continue to closely monitor, follow, advance diet. CM involved in poss. DC to rehab. MD Dre Subjective Follow-up for thoracic radiculopathy, s/p T10-T12 decompression and fusion. Patient seen and examined. Reports nausea has resolved and reports BM last evening. Asking for something to eat. No chest pain or shortness of breath. Denies lightheadedness and dizziness. Review of Systems Review of Systems: All systems reviewed & are unremarkable except as noted in Subjective Physical Exam Constitutional: WD/WN, vitals as above no acute distress Respiratory: normal respiratory effort, lungs clear to auscultation Cardiovascular: Rate/Rhythm: regular rate and regular rhythm Vessels: norm al peripheral pulses Extremities: no edema Gastrointestinal (Abdomen): Inspection/Auscultation: normal bowel sounds Percussion/Palpation: abdomen soft; abdomen nontender Musculoskeletal: S/p back surgery, right foot drop remains Skin: no rashes, warm and dry Neurologic: no focal motor deficits Psychiatric: A+Ox3, euthymic affect Results & Data Results & Data Vital Signs (Past 12 Hours) Vital Signs Temp Pulse Resp BP Pulse Ox O2 Del Method 02/07/23 08:15 36.6 C 81 18 165/93 H 97 Room Air 02/07/23 08:04 Room Air Laboratory Results Short CBC 02/07/23 Range/Units 05:59 WBC 6.85 (4.8-10.8) K/ul Hgb 11.7 L (14.0-18.0) g/dl Hct 34.0 L (42.0-52.0) % Plt Count 181 (130-400) K/uL BMP 02/07/23 05:59 Sodium 137 Potassium 4.1 Chloride 102 Carbon Dioxide 28 BUN 13 Creatinine 0.67 Glucose 89 Calcium 8.6 Medications Administered Current Inpatient Medications Acetaminophen (Acetaminophen 325 Mg Tab) 650 mg PO Q4H PRN PRN Reason: pain/fever Stop: 03/03/23 17:35 Acetaminophen (Acetaminophen 500 Mg Tab) 1,000 mg PO Q8H PRN PRN Reason: MILD Pain Scale 1,2,3 & Pre PT Stop: 03/05/23 16:10 Last Admin: 02/04/23 18:41 Dose: 1,000 mg Al Hydrox/Mg Hydrox/Simethicone (Aluminum/Magnesium Susp 30 Ml Udc) 30 ml PO Q6H PRN PRN Reason: Dyspepsia Stop: 03/05/23 16:10 Atorvastatin Calcium (Atorvastatin 40 Mg Tab) 40 mg PO HS YOBANI Stop: 03/03/23 20:59 Last Admin: 02/06/23 20:51 Dose: 40 mg Baclofen (Baclofen 10 Mg Tab) 10 mg PO TID PRN PRN Reason: Muscle Spasm Stop: 03/03/23 17:35 Bisacodyl (Bisacodyl 10 Mg Supp) 10 mg [place] DAILY PRN PRN Reason: Constipation Stop: 03/05/23 16:10 Last Admin: 02/06/23 07:49 Dose: 10 mg Bupropion HCl (Bupropion Sr 100 Mg Tabcr) 200 mg PO BID YOBANI Stop: 03/03/23 20:59 Last Admin: 02/07/23 07:45 Dose: 200 mg Buspirone HCl (Buspirone 15 Mg Tab) 15 mg PO TID YOBANI Stop: 03/03/23 20:59 Last Admin: 02/07/23 13:46 Dose: 15 mg Diphenhydramine HCl (Diphenhydramine Capsule 25 Mg Cap) 25 mg PO Q6H PRN PRN Reason: Allergic Rhinitis/Insomnia Stop: 03/05/23 16:10 Famotidine (Famotidine 20 Mg Tab) 20 mg PO Q12H PRN PRN Reason: Dyspepsia Stop: 03/05/23 16:10 Hydromorphone HCl (Hydromorphone Inj 0.5 Mg/0.5 Ml Syr) 0.5 mg IV Q3H PRN PRN Reason: MODERATE Pain (Scale 4,5,6) & Pre PT Stop: 02/17/23 16:10 Hydromorphone HCl (Hydromorphone Inj 1 Mg/Ml Syringe) 1 mg IV Q3H PRN PRN Reason: SEVERE Pain (Scale 7,8,9,10) Stop: 02/17/23 16:10 Last Admin: 02/04/23 02:36 Dose: 1 mg Hydroxyzine HCl (Hydroxyzine Hcl 25 Mg Tab) 25 mg PO Q8H PRN PRN Reason: Anxiety Stop: 03/05/23 16:10 Promethazine HCl 12.5 mg/ (Sodium Chloride) 50.5 mls @ 202 mls/hr IV Q6H PRN PRN Reason: Nausea &/or Vomiting Stop: 03/05/23 16:10 Influenza Virus Vaccine Quadrival (Do Not Administer Flu Vaccine) 1 each N/A PRN PRN PRN Reason: Notification Stop: 03/05/23 16:10 Lisinopril (Lisinopril 40 Mg Tab) 40 mg PO QAM [facility] Stop: 03/04/23 08:59 Last Admin: 02/07/23 07:44 Dose: 40 mg Lorazepam (Lorazepam 0.5 Mg Tab) 0.5 mg PO Q8H PRN PRN Reason: Sedation/Anxiety Stop: 03/05/23 16:10 Lorazepam (Lorazepam 2 Mg/1 Ml Vial) 0.5 mg IV Q8H PRN PRN Reason: Sedation/Anxiety Stop: 03/05/23 16:10 Magnesium Hydroxide (Magnesium Hydroxide Susp 30 Ml Udc) 30 ml PO Q24H PRN PRN Reason: Constipation Stop: 03/05/23 16:10 Last Admin: 02/05/23 17:08 Dose: 30 ml Magnesium Oxide (Magnesium Oxide 400 Mg Tab) 400 mg PO BID [facility] Stop: 03/05/23 08:59 Last Admin: 02/07/23 07:45 Dose: 400 mg Metoclopramide HCl (Metoclopramide Hcl Inj 5 Mg/Ml 2 Ml Vial) 10 mg IV Q6H PRN PRN Reason: Nausea &/or Vomiting Stop: 03/05/23 16:10 Metoprolol Tartrate (Metoprolol Tartrate 25 Mg Tab) 25 mg PO BID [facility] Stop: 03/03/23 20:59 Last Admin: 02/07/23 07:44 Dose: 25 mg Naloxone HCl (Naloxone Hcl 0.4 Mg/1 Ml Vial/Carp) 0.1 mg IV Q5M PRN PRN Reason: Oversedation/Resp depression Stop: 03/05/23 16:10 Ondansetron HCl (Ondansetron Inj 2 Mg/Ml 2 Ml Vial) 4 mg IV Q6H PRN PRN Reason: Nausea &/or Vomiting Stop: 03/05/23 16:10 Ondansetron HCl (Ondansetron 4 Mg Od Tab) 4 mg PO Q6H PRN PRN Reason: Nausea Stop: 03/05/23 16:10 Last Admin: 02/06/23 07:49 Dose: 4 mg Oxycodone HCl (Oxycodone Hcl Ir 5 Mg Tab (Immediate Release)) 5 - 10 mg PO Q4H PRN PRN Reason: Pain & Pre PT Stop: 02/17/23 16:10 Last Admin: 02/07/23 08:25 Dose: 10 mg Pantoprazole Sodium (Pantoprazole 40 Mg Tab) 40 mg PO BID YOBANI Stop: 03/03/23 20:59 Last Admin: 02/07/23 07:45 Dose: 40 mg Pneumococcal Polyvalent Vaccine (Do Not Administer Pneumococcal Vaccine) 1 each N/A PRN PRN PRN Reason: Notification Stop: 03/05/23 16:10 Polyethylene Glycol (Polyethylene (Miralax) 17 Gm Pack) 17 gm PO Q6 YOBANI Stop: 03/06/23 05:59 Last Admin: 02/06/23 12:38 Dose: Not Given Senna/Docusate Sodium (Docusate Sodium/Senna 50/8.6mg Tab) 2 tab PO HS YOBANI Stop: 03/03/23 20:59 Last Admin: 02/05/23 21:09 Dose: 2 tab Sodium Biphosphate/Sodium Phosphate (Sod Phosphate/Sod Biphosphate Enema 132 Ml Btl) 132 ml [place] ONE PRN PRN Reason: Constipation Stop: 03/05/23 16:10 Tramadol HCl (Tramadol Hcl 50 Mg Tablet) 50 - 100 mg PO Q4H PRN PRN Reason: Moderate-Severe pain & Pre PT Stop: 03/05/23 16:10 Last Admin: 02/06/23 18:48 Dose: 100 mg Trazodone HCl (Trazodone Hcl 100 Mg Tab) 100 mg PO HS YOBANI Stop: 03/03/23 20:59 Last Admin: 02/06/23 20:51 Dose: 100 mg
[2023-02-07] MEDS: traMADol HCL 50 MG TABLET PO PRN (17:11)
[2023-02-07] MEDS ORDERED: THIAMINE HCL 100 MG in SYRINGE 9 ML IV STA (20:24)
[2023-02-07] MEDS: traZODone HCL 100 MG TAB PO SCH (20:36)
[2023-02-07] MEDS: ATORVASTATIN 40 MG TAB PO SCH (20:37)
[2023-02-07] MEDS: LORazepam 2 MG/1 ML VIAL IV PRN (21:10)
[2023-02-08] MEDS: traMADol HCL 50 MG TABLET PO PRN (01:33)
[2023-02-08] MEDS: LORazepam 2 MG/1 ML VIAL IV PRN ×4 (03:34→16:55)
[2023-02-08] MEDS ORDERED: GABAPENTIN 1200MG ALCOHOL WITHDRAWAL LOAD PO STA (07:21)
[2023-02-08] MEDS ORDERED: GABAPENTIN 600 MG TAB PO ONE (07:21)
[2023-02-08] MEDS ORDERED: Ativan IV Alcohol Withdrawal--Active Protocol IV PRN (07:21)
[2023-02-08] MEDS ORDERED: LORazepam 2 MG/1 ML VIAL IV PRN (07:21)
[2023-02-08 07:42] LABS: Hemoglobin 11.5 g/dl (14.0-18.0); Mean Corpuscular Hemoglobin 34.3 pg (25.0-34.0); Mean Corpuscular Hgb Conc 34.8 g/dL (32.0-36.0); Mean Corpuscular Volume 98.5 fL (80.0-100.0); Mean Platelet Volume 9.5 fL (9.4-12.4); Platelet Count 224 K/uL (130-400); RDW Coefficient of Variation 11.9 % (11.5-14.5); RDW Standard Deviation 43.5 fL (36.4-46.3); Red Blood Count 3.35 M/uL (4.70-6.10); White Blood Count 7.26 K/ul (4.8-10.8)
[2023-02-08 07:56] LABS: BUN Creatinine Ratio 23.9 (10-20); Calcium 8.9 mg/dl (8.6-10.3); Creatinine Clr Calc Pharmacy 107.4 ml/min; Est GFR (African American) 113.6 ml/min; Magnesium 1.6 mg/dl (1.7-2.4); Phosphorus 3.4 mg/dl (2.5-4.9)
[2023-02-08] MEDS: lisinopril 40 MG TAB PO SCH (08:58)
[2023-02-08] MEDS: MAGNESIUM OXIDE 400 MG TAB PO SCH ×2 (08:58→20:01)
[2023-02-08] MEDS ORDERED: THIAMINE HCL 100 MG TAB PO SCH (09:00)
[2023-02-08] MEDS: FOLIC ACID 1 MG TAB PO SCH (09:02)
[2023-02-08] MEDS: busPIRone 15 MG TAB PO SCH ×3 (09:02→20:01)
[2023-02-08] MEDS: PANTOprazole 40 MG TAB PO SCH ×2 (09:02→20:01)
[2023-02-08] MEDS: METOPROLOL TARTRATE 25 MG TAB PO SCH ×2 (09:02→20:01)
[2023-02-08] MEDS: buPROPion SR 100 MG TABCR PO SCH ×2 (09:02→20:01)
[2023-02-08] MEDS: POLYETHYLENE (MIRALAX) 17 GM PACK PO SCH (09:03)
[2023-02-08] MEDS: MAGNESIUM SULFATE / D5W 1 GM/100 ML BAG IV SCH ×2 (09:18→11:47)
[2023-02-08] MEDS: THIAMINE HCL 100 MG in SYRINGE 9 ML IV SCH (10:46)
--- NOTE | 2023-02-08 13:44 | Hospitalist Progress Note ---
Date of Service February 08, 2023 Assessment & Plan (1) Thoracic radiculopathy: Plan: Patient presenting for evaluation of back pain, right foot drop, bilateral leg weakness and numbness. Outpatient thoracic MRI from 01/27 -at T10/11, there is a broad-based midline di sc protrusion measuring 4 mm in diameter causing moderate flattening of the cord. There is severe spinal canal stenosis secondary to the protrusion and bilateral facet osteoarthritis. Lumbar spine MRI - Multilevel degenerative changes are seen. There is up to severe left and moderate right bilateral neural foraminal stenosis. Mild canal stenosis is seen. Partially visualized, there appears to be significant canal or neural foraminal stenosis in the lower thoracic spine most prominently at T10- T11. If there is concern for spinal cord impingement, dedicated thoracic spine MRI can be performed. Spine Ortho consult -recommended emergent decompression POD #5 decompression and fusion T10-T12 Activity and wound care orders as per ortho Pain control with bowel regimen PT/OT Monitor H/H for acute blood loss anemia and transfuse blood products PRN EBL 50 cc, JONATHAN output 450 cc Hgb 11.5, stable Weakness and numbness improving however likely will need rehab. (2) Alcohol withdrawal: Plan: 02/07:Patient developed agitation, confusion, hallucinations, tremors. Ex- reported to nursing that patient drinks alcohol heavily. 02/08: Due to increased doses of Ativan required, will transfer to [facility]. Alcohol withdrawal protocol with gabapentin and PRN Ativan (3) Ileus: Plan: Resolved, tolerating regular diet, bowel regimen resumed 02/07: Nausea resolved, BM last evening Start clear liquids, advance diet as tolerated 02/06: Patient complaining of nausea, abdominal distention, no BM x 7 days KUB - Gaseous distended loops of large and small bowel may represent an ileus. Distal obstruction is an additional consideration. CT abd/pelvis - Multiple gas-distended loops of large bowel are seen. No small bowel obstruction is seen. (4) HTN (hypertension): Plan: Chronic, stable Continue home metoprolol and lisinopril (5) Anxiety: (6) Depression: Plan: Chronic, stable Continue home meds (7) Allergic rhinitis: Plan: Follows with allergy and receives immunotherapy injections. Discussed with Lizzy Child PA-C -- due for injection on 02/11. Office will not transport serum to hospital for administration and do not recommend injection while acutely ill. Outpatient follow up. (8) HLD (hyperlipidemia): Plan: Chronic, stable Continue statin DVT PROPHYLAXIS TEDs/SCDs as per spine Ortho Dispo - now pending given active alcohol withdrawal, likely will need rehab Patient seen in collaboration with Dr. Gordillo. Admission and Anticipated Discharge Date Admission Date: February 01, 2023 Supervising Physician Co-Signing Physician Notes Patient is seen and examined at bedside. Patient is drowsy secondary to Ativan. Currently seem to be having alcohol withdrawal symptoms. Discussed with patient's son at bedside. Back pain at surgical site is controlled. Denies any chest pain, dyspnea. On exam patient is moderately built and nourished,+ shakiness, drowsy, normocephalic/atraumatic, normal breath sounds, clear to auscultation, S1-S2, no murmur, no pedal edema, abdomen soft, nontender, grossly no focal deficits. S/P thoracic decompression, fusion surgery for thoracic radiculopathy by Dr. Lott. Wound care, activity as per orthopedic surgery. Continue gabapentin, thiamine, folic acid, Ativan as needed for alcohol withdrawal. Ileus resolved. Monitor bowel movements. I personally reviewed the record. Patient is interviewed and examined at bedside. Patient's care is coordinated with Delilah Morris NP. Please refer to the documentation above for details of patient's presentation and for discussion of other issues. Subjective Follow-up for thoracic radiculopathy, s/p T10-T12 decompression and fusion. Patient seen and examined. Yesterday developed confusion, agitation, hallucinations, tremor. Ex- reported to nursing yesterday that patient drinks alcohol heavily. Today - patient oriented to self only, but pleasant. Restless in bed. Admits to drinking 2 beers/night. Prior heavy alcohol use of 1 pint whiskey/day a few months ago. Reports pain is controlled, offers no complaints. Review of Systems Review of Systems: All systems reviewed & are unremarkable except as noted in Subjective Physical Exam Constitutional: WD/WN, vitals as above Respiratory: normal respiratory effort, lungs clear to auscultation Cardiovascular: Rate/Rhythm: regular rate and regular rhythm Vessels: normal peripheral pulses Extremities: no edema Gastrointestinal (Abdomen): Percussion/Palpation: abdomen soft; abdomen nontender Musculoskeletal: s/p back surgery, BLLE weakness R > L and right foot drop remains unchanged from yesterday Skin: no rashes, warm and dry Neurologic: no focal motor deficits Psychiatric: Orientation: alert and oriented to person; + not oriented to place and + not oriented to time Patient restless in bed but pleasant, no acute distress Results & Data Results & Data Vital Signs (Past 12 Hours) Vital Signs Temp Pulse Pulse Resp BP Pulse Ox O2 Del Method 02/08/23 11:00 37 C 83 18 134/80 94 Room Air 02/08/23 08:00 37.1 C 84 18 160/90 H 96 Room Air 02/08/23 03:36 37.0 C 80 20 148/76 H 97 Room Air Laboratory Results Short CBC 02/08/23 Range/Units 07:18 WBC 7.26 (4.8-10.8) K/ul Hgb 11.5 L (14.0-18.0) g/dl Hct 33.0 L (42.0-52.0) % Plt Count 224 (130-400) K/uL BMP 02/08/23 07:18 Sodium 134 L Potassium 4.0 Chloride 100 Carbon Dioxide 25 BUN 16 Creatinine 0.67 Glucose 96 Calcium 8.9
[2023-02-08] MEDS: GABAPENTIN 600 MG TAB PO SCH ×2 (13:48→20:00)
[2023-02-08] MEDS ORDERED: LORazepam 2 MG/1 ML VIAL IV STA (18:45)
[2023-02-08] MEDS: ATORVASTATIN 40 MG TAB PO SCH (20:01)
[2023-02-08] MEDS: traZODone HCL 100 MG TAB PO SCH (20:01)
[2023-02-08] MEDS: DOCUSATE SODIUM/SENNA 50/8.6MG TAB PO SCH (20:01)
[2023-02-08 21:12] LABS: Base Excess ABG 2.3 mEq/L (-9-1.8); HCO3 ABG 27 mmol/L (19-24); Oxygen Saturation ABG 99.4 % (90-95); PCO2 ABG 39 mmHg (35-46); PO2 ABG 154 mmHg (80-95); pH ABG 7.44 (7.35-7.45)
[2023-02-08 21:14] LABS: Allen Test Pos (Pos)
[2023-02-09] MEDS: LORazepam 2 MG/1 ML VIAL IV PRN ×5 (01:19→10:55)
[2023-02-09] MEDS: GABAPENTIN 600 MG TAB PO SCH ×5 (03:02→22:28)
[2023-02-09] MEDS ORDERED: LORazepam 2 MG/1 ML VIAL IV STA ×5 (04:11→21:33)
[2023-02-09 06:19] LABS: Calcium 8.7 mg/dl (8.6-10.3); Creatinine Clr Calc Pharmacy 98.6 ml/min; Est GFR (African American) 109.7 ml/min; Est GFR (Non-African American) 94.6 ml/min; Magnesium 1.8 mg/dl (1.7-2.4)
--- NOTE | 2023-02-09 07:59 | XRay Report ---
XR chest 1V portable CLINICAL HISTORY: low o2 TECHNIQUE: Single frontal radiograph of the chest was obtained. Comparison: Comparison is made to chest radiograph 02/01/2023 FINDINGS: Posterior fixation hardware spans the lower thoracic spine and lumbar spine. Calcified aortic knob is seen. The lungs are clear. No evidence of pleural effusion or pneumothorax. IMPRESSION: No acute abnormalities and in particular no radiographic evidence of pneumonia. ACT 112: Negative or not required by law. Electronically signed by: Maurilio Brown M.D. 02/09/2023 7:57 AM
[2023-02-09] MEDS: THIAMINE HCL 100 MG in SYRINGE 9 ML IV SCH (08:48)
[2023-02-09] MEDS: lisinopril 40 MG TAB PO SCH (08:51)
[2023-02-09] MEDS: buPROPion SR 100 MG TABCR PO SCH ×2 (08:51→21:08)
[2023-02-09] MEDS: busPIRone 15 MG TAB PO SCH ×3 (08:51→21:08)
[2023-02-09] MEDS: FOLIC ACID 1 MG TAB PO SCH (08:51)
[2023-02-09] MEDS: MAGNESIUM OXIDE 400 MG TAB PO SCH ×2 (08:51→21:08)
[2023-02-09] MEDS: METOPROLOL TARTRATE 25 MG TAB PO SCH ×2 (08:52→21:08)
[2023-02-09] MEDS: PANTOprazole 40 MG TAB PO SCH ×2 (08:52→21:10)
[2023-02-09] MEDS: POLYETHYLENE (MIRALAX) 17 GM PACK PO SCH (08:52)
--- NOTE | 2023-02-09 11:38 | CT Scan Report ---
CT head/brain wo con CLINICAL HISTORY: 67 years-old Male with AMS. Acutely altered mental status with confusion TECHNIQUE: Multiple axial CT images of the head were obtained without contrast. A dose lowering tech nique was utilized adhering to the principles of ALARA. CT DOSE: 1484.36 mGy.cm COMPARISON: None. FINDINGS: Motion degraded exam. Involutional changes with chronic microvascular ischemic disease. Calcification s of the falx cerebra. No acute intracranial hemorrhage, midline shift, intracranial mass, hydrocepha noe, territorial ischemia or abnormal extra-axial collection. The calvarium is intact. Trace mastoid effusions. Paranasal sinuses are clear. Unremarkable soft tis sues and orbits. IMPRESSION: Motion degraded exam without acute intracranial abnormality. ACT 112: Negative or not required by law. The above report was generated using voice recognition software. It may contain grammatical, syntax o r spelling errors. Electronically signed by: Isaias Aburto M.D. 02/09/2023 11:36 AM
--- NOTE | 2023-02-09 17:56 | Hospitalist Progress Note ---
Date of Service February 09, 2023 Assessment & Plan (1) Thoracic radiculopathy: Plan: Patient presenting for evaluation of back pain, right foot drop, bilateral leg weakness and numbness. Outpatient thoracic MRI from 01/27 -at T10/11, there is a broad-based midline disc protrusion measuring 4 mm in diameter causing moderate flattening of the cord. There is severe spinal canal stenosis secondary to the protrusion and bilateral facet osteoarthritis. Myelopathy concurrent with and due to spinal stenosis of thoracic region --Lumbar spine MRI:Multilevel degenerative changes are seen. There is up to severe left and moderate right bilateral neural foraminal stenosis. Mild canal stenosis is seen. Partially visualized, there appears to be significant canal or neural foraminal stenosis in the lower thoracic spine most prominently at T10-T11. If there is concern for spinal cord impingement, dedicated thoracic spine MRI can be performed. S/P Decompression and fusion T10-T12 by on 02/03/23 Postoperative acute blood loss Activity and wound care orders as per ortho Pain control with bowel regimen Continue PT/OT as able Appreciate orthopedics help Monitor CBC, currently no indications for blood transfusion Fall precautions Needs follow-up with orthopedics upon discharge (2) Alcohol withdrawal: Plan: Acute metabolic encephalopathy --CT Head:Motion degraded exam without acute intracranial abnormality. Alcohol withdrawal Ex- reported to nursing that patient drinks alcohol heavily per record Continue gabapentin protocol Continue thiamine, folic acid Ativan as needed (3) Ileus: Plan: --CT ABD:Multiple gas-distended loops of large bowel are seen. No small bowel obstruction is seen. Resolved, tolerating regular diet, bowel regimen resumed Monitor (4) HTN (hypertension): Plan: Chronic, stable Continue home metoprolol and lisinopril (5) Anxiety: (6) Depression: Plan: Chronic, stable Continue home meds (7) Allergic rhinitis: Plan: Follows with allergy and receives immunotherapy injections. Discussed with Lizzy Child PA-C -- due for injection on 02/11. Office will not transport serum to hospital for administration and do not recommend injection while acutely ill. Outpatient follow up. (8) HLD (hyperlipidemia): Plan: Chronic, stable Continue statin DVT Px: TEDs/SCDs as per spine Ortho Admission and Anticipated Discharge Date Admission Date: February 01, 2023 Subjective Patient is seen and examined at bedside Oriented to person only this morning during my encounter Pleasantly confused Still seem to be undergoing drug withdrawal CT head showed no acute findings Sitter at bedside Poor historian Saturating well on room air Review of Systems Review of Systems: Unobtainable due to reduced consciousness Physical Exam Physical Exam: Physical Exam: Vitals signs as noted above General Appearance:Moderately built and nourished, no apparent distress Head: normocephalic, Atraumatic Eyes: normal inspection, EOMI Neck: supple, Trachea midline Respiratory/Chest: Normal breath sounds, CTA, No accessory muscle use Cardiovascular: S1, S2, No murmur Abdomen/GI:Soft, Non tender, Bowel sounds present Back: Surgical site Extremities/Musculoskeletal:normal inspection, no edema Neurologic/Psych:AAOX1, grossly no focal neurological deficits, +Confused Skin: normal color, warm Results & Data Results & Data Vital Signs (Past 12 Hours) Vital Signs Temp Pulse Pulse Resp BP Pulse Ox O2 Del Method 02/09/23 15:39 87 02/09/23 15:11 36.6 C 95 H 20 137/81 95 Room Air 02/09/23 10:32 36.9 C 92 H 20 138/79 93 Nasal Cannula 02/09/23 08:07 36.6 C 89 20 143/88 H 90 Nasal Cannula 02/09/23 07:20 90 O2 Flow Rate 02/09/23 15:39 02/09/23 15:11 02/09/23 10:32 3 02/09/23 08:07 3 02/09/23 07:20 Laboratory Results BMP 02/09/23 05:28 Sodium 136 Potassium 4.0 Chloride 102 Carbon Dioxide 27 BUN 19 Creatinine 0.73 Glucose 91 Calcium 8.7
[2023-02-09] MEDS: ATORVASTATIN 40 MG TAB PO SCH (21:08)
[2023-02-09] MEDS: traMADol HCL 50 MG TABLET PO PRN (21:11)
[2023-02-09] MEDS ORDERED: COUGH DROP (SUGAR FREE) LOZ 24 LOZ/1 BOX BUCCAL ONE (21:43)
[2023-02-09] MEDS: DOCUSATE SODIUM/SENNA 50/8.6MG TAB PO SCH (22:13)
[2023-02-09] MEDS: traZODone HCL 100 MG TAB PO SCH (22:21)
[2023-02-10] MEDS: traMADol HCL 50 MG TABLET PO PRN ×2 (02:52→20:20)
[2023-02-10] MEDS: LORazepam 2 MG/1 ML VIAL IV PRN ×8 (02:52→22:56)
[2023-02-10] MEDS: FOLIC ACID 1 MG TAB PO SCH ×2 (08:36→09:46)
[2023-02-10] MEDS: buPROPion SR 100 MG TABCR PO SCH ×3 (08:36→20:16)
[2023-02-10] MEDS: lisinopril 40 MG TAB PO SCH ×2 (08:36→09:46)
[2023-02-10] MEDS: GABAPENTIN 600 MG TAB PO SCH ×3 (08:36→20:15)
[2023-02-10] MEDS: METOPROLOL TARTRATE 25 MG TAB PO SCH ×3 (08:37→20:18)
[2023-02-10] MEDS: MAGNESIUM OXIDE 400 MG TAB PO SCH ×3 (08:37→20:17)
[2023-02-10] MEDS: PANTOprazole 40 MG TAB PO SCH ×3 (08:37→20:19)
[2023-02-10] MEDS: THIAMINE HCL 100 MG in SYRINGE 9 ML IV SCH (08:37)
[2023-02-10] MEDS: busPIRone 15 MG TAB PO SCH ×4 (08:37→20:15)
[2023-02-10] MEDS: POLYETHYLENE (MIRALAX) 17 GM PACK PO SCH (09:44)
[2023-02-10 09:48] LABS: Appearance Urine Cloudy (Clear); Bacteria Urine Automated Negative (Negative); Bilirubin Urine Negative (Negative); Blood Urine Negative (Negative); Cast Urine Automated 0 /lpf (0-5); Color Urine Dark Yellow; Glucose Urine UA Negative (Negative); Ketones Urine 1+ (Negative); Leukocyte Esterase Urine Negative (Negative); Nitrite Urine Negative (Negative); Protein Urine Negative (Negative); RBC Urine Automated 0-4 /hpf (0-4); Specific Gravity Urine 1.021 (1.000-1.030); Urobilinogen Urine Positive (Negative); WBC Urine Automated 0 /hpf (0-5)
[2023-02-10 10:23] LABS: Hematocrit (blood only) 35.6 % (42.0-52.0); Hemoglobin 12.6 g/dl (14.0-18.0); Mean Corpuscular Hemoglobin 34.3 pg (25.0-34.0); Mean Corpuscular Hgb Conc 35.4 g/dL (32.0-36.0); Mean Platelet Volume 9.4 fL (9.4-12.4); Platelet Count 268 K/uL (130-400); RDW Coefficient of Variation 11.9 % (11.5-14.5); Red Blood Count 3.67 M/uL (4.70-6.10); White Blood Count 7.39 K/ul (4.8-10.8)
[2023-02-10 10:38] LABS: BUN Creatinine Ratio 26.2 (10-20); Creatinine Clr Calc Pharmacy 110.7 ml/min; Est GFR (African American) 115.1 ml/min; Est GFR (Non-African American) 99.3 ml/min; Magnesium 1.7 mg/dl (1.7-2.4); Potassium 3.9 mmol/L (3.5-5.1)
[2023-02-10] MEDS ORDERED: HYDROCORTISONE 2.5% CR 30 GM TUBE EXT PRN (13:38)
[2023-02-10] MEDS ORDERED: DESONIDE CR 15 GM TUBE EXT PRN (13:38)
[2023-02-10] MEDS ORDERED: D5W AND 1/2NSS 1,000 ML IV ONE (13:56)
[2023-02-10] MEDS ORDERED: TACROLIMUS 0.1% TOP PRN (14:51)
--- NOTE | 2023-02-10 17:30 | Hospitalist Progress Note ---
Date of Service February 10, 2023 Assessment & Plan (1) Thoracic radiculopathy: Plan: Patient presenting for evaluation of back pain, right foot drop, bilateral leg weakness and numbness. Outpatient thoracic MRI from 01/27 -at T10/11, there is a broad-based midline disc protrusion measuring 4 mm in diameter causing moderate flattening of the cord. There is severe spinal canal stenosis secondary to the protrusion and bilateral facet osteoarthritis. Myelopathy concurrent with and due to spinal stenosis of thoracic region --Lumbar spine MRI:Multilevel degenerative changes are seen. There is up to severe left and moderate right bilateral neural foraminal stenosis. Mild canal stenosis is seen. Partially visualized, there appears to be significant canal or neural foraminal stenosis in the lower thoracic spine most prominently at T10-T11. If there is concern for spinal cord impingement, dedicated thoracic spine MRI can be performed. S/P Decompression and fusion T10-T12 by on 02/03/23 Postoperative acute blood loss Activity and wound care orders as per ortho Pain control with bowel regimen Continue PT/OT as able Appreciate orthopedics help Monitor CBC, currently no indications for blood transfusion Fall precautions Needs follow-up with orthopedics upon discharge Minimize narcotics as able (2) Alcohol withdrawal: Plan: Acute metabolic encephalopathy --CT Head:Motion degraded exam without acute intracranial abnormality. Alcohol withdrawal Ex- reported to nursing that patient drinks alcohol heavily per record Continue gabapentin protocol Continue thiamine, folic acid Ativan as needed Gentle IV fluids given poor oral intake Has been refusing gabapentin per RN (3) Ileus: Plan: --CT ABD:Multiple gas-distended loops of large bowel are seen. No small bowel obstruction is seen. Resolved, tolerating regular diet, bowel regimen resumed Monitor (4) HTN (hypertension): Plan: Chronic, stable Continue home metoprolol and lisinopril (5) Anxiety: (6) Depression: Plan: Chronic, stable Continue home meds (7) Allergic rhinitis: Plan: Follows with allergy and receives immunotherapy injections. Discussed with Lizzy Child PA-C -- due for injection on 02/11. Office will not transport serum to hospital for administration and do not recommend injection while acutely ill. Outpatient follow up. (8) HLD (hyperlipidemia): Plan: Chronic, stable Continue statin DVT Px: TEDs/SCDs as per spine Ortho Admission and Anticipated Discharge Date Admission Date: February 01, 2023 Subjective Patient is seen and examined at bedside Noted to have withdrawal symptoms this morning Reports on and off back pain at surgical site Follows simple commands Oral intake poor Intermittently confused Review of Systems Review of Systems: All systems reviewed & are unremarkable except as noted in Subjective Physical Exam Physical Exam: Physical Exam: Vitals signs as noted above General Appearance:Moderately built and nourished, no apparent distress Head: normocephalic, Atraumatic Eyes: normal inspection, EOMI Neck: supple, Trachea midline Respiratory/Chest: Normal breath sounds, CTA, No accessory muscle use Cardiovascular: S1, S2, No murmur Abdomen/GI:Soft, Non tender, Bowel sounds present Back: Surgical site Extremities/Musculoskeletal:normal inspection, no edema Neurologic/Psych:AAOX1, grossly no focal neurological deficits, +Confused Skin: normal color, warm Results & Data Results & Data Vital Signs (Past 12 Hours) Vital Signs Temp Pulse Pulse Resp BP Pulse Ox O2 Del Method 02/10/23 13:41 36.7 C 141/87 H 02/10/23 08:00 82 02/10/23 11:01 37.2 C 85 18 150/96 H 96 Room Air 02/10/23 07:01 36.7 C 75 20 150/99 H 95 Room Air Laboratory Results Short CBC 02/10/23 Range/Units 09:56 WBC 7.39 (4.8-10.8) K/ul Hgb 12.6 L (14.0-18.0) g/dl Hct 35.6 L (42.0-52.0) % Plt Count 268 (130-400) K/uL BMP 02/10/23 09:56 Sodium 136 Potassium 3.9 Chloride 101 Carbon Dioxide 27 BUN 17 Creatinine 0.65 Glucose 100 H Calcium 9.0 Urine 02/10/23 Range/Units 09:20 Urine Color Dark Yellow Urine Appearance Cloudy A (Clear) Urine pH 7.0 (4.5-7.5) Ur Specific [place] 1.021 (1.000-1.030) Urine Protein Negative (Negative) Urine Glucose (UA) Negative (Negative)
[2023-02-10] MEDS: ATORVASTATIN 40 MG TAB PO SCH (20:15)
[2023-02-10] MEDS: DOCUSATE SODIUM/SENNA 50/8.6MG TAB PO SCH (20:18)
[2023-02-10] MEDS: traZODone HCL 100 MG TAB PO SCH (20:19)
[2023-02-10] MEDS ORDERED: LORazepam 2 MG/1 ML VIAL IV STA ×3 (21:14→23:23)
[2023-02-10] MEDS ORDERED: ACETAMINOPHEN 1,000 MG/100 ML VIAL IV STA (22:22)
[2023-02-10] MEDS ORDERED: chlordiazePOXIDE ALCOHOL WITHDRAWL 25MG PO STA (22:50)
--- NOTE | 2023-02-10 22:51 | Communication Note ---
Date of Service: February 10, 2023 Patient still agitated despite multiple doses of IV Ativan as per RN. Unable to take Librium safely. AP Worsening alcohol withdrawal ICU transfer
[2023-02-11] MEDS ORDERED: STAT IV Infusion **Titration per Protocol STA (00:11)
--- NOTE | 2023-02-11 01:17 | Critical Care Consultation ---
Date of Consultation February 10, 2023 Assessment & Plan (1) Delirium tremens: Reason Critically Ill: 67-year-old male presents to the ICU following emergent spinal decompression with fusion of T10-T12 and undergoing treatment for her alcohol withdrawal now with refractory DTs requiring Precedex drip. Neuro - Delirium tremens-alcohol history previously confirmed with the patient's , unsure of actual amount of consumption -Moved to ICU and will start on Precedex drip with IV Ativan as needed, GRANT S protocol -Continue folic acid, thiamine -Hold Librium for now as patient is currently n.p.o. -CT head 02/09 negative for acute intracranial abnormalities Spinal stenosis/thoracic radiculopathystatus post T10-T12 spinal decompression with fusion. Management per surgical team -Continue dexamethasone Cardiac - HTNcontinue metoprolol Respiratory - No history of pulmonary disease, currently maintaining oxygen saturation on 2 L nasal cannula. Wean as tolerated. Continuous monitoring on pulse ox GI - N.p.o. for now, continue PPI RENAL/LYTES - Creatinine within normal limits, monitor routine BMPs replete electrolytes as indicated Plasma-Lyte at 80 mL/h - Foleystrict I's and O's ENDO - No history of diabetes or thyroid disease, ICU hyperglycemic protocol HEME - H&H stable, monitor routine CBCs ID - No indication for infectious process at this time, trend fever curve LINES/IV ACCESS - Peripheral IVs DVT PROPHYLAXIS - SCDs, anticoagulants currently on hold due to recent surgery I have personally spent 45 minutes of critical care time in the direct management of this patient. This is a life/limb threatening event. This includes time spent evaluating patient, direct bedside care, chart review, placing orders, interpretation of diagnostic studies, discussion with consultants, patient, and family members, as well as other required patient management activities. This time is exclusive of all separately billable procedures, and teaching time and separate from and in addition to any other critical care service time. Thank you for allowing us to participate in the care of this patient. Please refer to my attending physician's documentation for any further recommendations. (2) Myelopathy concurrent with and due to spinal stenosis of thoracic region: (3) HTN (hypertension): (4) HLD (hyperlipidemia): History of Present Illness Attending Physician: José Manuel Gordillo MD History of Present Illness Patient is a 67-year-old male with past medical history of HTN, HLD, depression, alcohol abuse, bilateral lower extremity weakness secondary to spinal stenosis. Patient was initially admitted on 01/26 where he underwent lumbar decompression of T10-T12, posterior spinal fusion T10-T12 with Dr. Lott. Patient initially presented to the emergency department with inability to ambulate and had presented with severe thoracic spinal stenosis with myelomalacia. Patient is now undergoing treatment for alcohol withdrawal and I was notified by the primary team that the patient has become increasingly agitated requiring high doses of IV lorazepam. Patient is now being transferred to the ICU for ongoing management of refractory delirium tremens, requiring Precedex drip. Allergies Allergy/AdvReac Type Severity Reaction Status Date / Time cat dander Allergy Unknown YORDY DOG Verified 09/22/22 14:40 NASAL [id number], ITCHY EYES grass pollen-perennial rye, Allergy Unknown TREES,GRASS-NASAL Verified 09/22/22 14:40 standar CONGESTION pollen extracts Allergy Unknown ITCHY Verified 09/22/22 14:40 EYES,NASAL CONGESTION Home Medications Medication Instructions Recorded Confirmed Type atorvastatin 40 mg tablet (Lipitor) 40 mg PO HS 03/12/21 02/01/23 History lisinopril 40 mg tablet 40 mg PO QAM 03/12/21 02/01/23 History omeprazole 20 mg capsule,delayed 20 mg PO BID 03/12/21 02/01/23 History release sildenafil 50 mg tablet (Viagra) 50 mg PO DAILY PRN Erectile 03/12/21 02/01/23 History Dysfunction baclofen 10 mg tablet 10 mg PO TID PRN Muscle Spasm 02/01/23 02/01/23 History bupropion HCl 200 mg tablet,12 hr 200 mg PO BID 02/01/23 02/01/23 History sustained-release buspirone 15 mg tablet 15 mg PO TID 02/01/23 02/01/23 History desonide 0.05 % topical cream 1 applic topical BID PRN psoriasis 02/01/23 02/01/23 History hydrocortisone 2.5 % topical cream 1 applic topical BID PRN Itching 02/01/23 02/01/23 History metoprolol tartrate 25 mg tablet 25 mg PO BID 02/01/23 02/01/23 History tacrolimus 0.1 % topical ointment 1 applic topical BID PRN genital 02/01/23 02/01/23 History psoriasis trazodone 100 mg tablet 100 mg PO HS 02/01/23 02/01/23 History Patient History Medical History (Updated 02/11/23 @ 01:54 by KRISHNA Wolf) Allergic rhinitis Anxiety Depression GERD (gastroesophageal reflux disease) HLD (hyperlipidemia) HTN (hypertension) Surgical History History of back surgery Social History Smoking Status: Former smoker Smoking End Date: quit smoking years ago; Second Hand Exposure: No; Do You Dip or Chew Tobacco: No; Tobacco Cessation Education Requested by Patient: No Hx Alcohol Use: Yes Alcohol type: hard liquor Hx Substance Use: No Preferred Language: Trinidadian Communication Ability: Effective Vault Clerk Required: No Beliefs That Will Affect Care: None Current Living Situation: Family Current Living Situation Comment: lives with son Other Information That Helps Us Care for You: No Feels Safe at Home: Yes Safety Concerns: Feels Safe At This Time Assistive Devices: Cane Review of Systems Review of Systems: Unobtainable due to cognitive status Physical Exam Constitutional: + in distress; + uncooperative Eyes: PERRL, conjunctivae normal, anicteric sclerae ENMT: external ear and nose normal, oropharynx normal Neck: trachea midline, no thyromegaly Respiratory: normal respiratory effort, lungs clear to auscultation Cardiovascular: RRR, no murmur, no edema Heart Sounds: normal S1 and normal S2 Vessels: no JVD Gastrointestinal (Abdomen): normal bowel sounds, soft, nontender, no hepatosplenomegaly Musculoskeletal: no cyanosis or clubbing, extremities motor strength 5/5 Skin: no rashes, warm and dry Neurologic: Facial droop. Does have some slurring with speech. Does not cooperate with exam but able to answer simple questions. Psychiatric: Confused, agitated. Genitourinary: Indwelling Devi catheter present Results & Data Results & Data Vital Signs (Past 12 Hours) Vital Signs Temp Pulse Pulse Resp BP Pulse Ox O2 Del Method 02/11/23 00:32 Room Air 02/10/23 22:11 36.5 C 82 22 160/97 H 93 Room Air 02/10/23 20:41 36.5 C 85 16 148/88 H 96 Room Air 02/10/23 18:28 36.5 C 88 20 140/84 94 Room Air 02/10/23 18:15 83 02/10/23 13:41 36.7 C 141/87 H O2 Flow Rate 02/11/23 00:32 92 02/10/23 22:11 02/10/23 20:41 02/10/23 18:28 02/10/23 18:15 02/10/23 13:41 Coding Level of Care Code 48781 CRITICAL CARE 1ST 30-74M Diagnoses Delirium tremens F10.931 Myelopathy concurrent with and due to spinal stenosis of thoracic region M48.04; G99.2 HTN (hypertension) I10 HLD (hyperlipidemia) E78.5
[2023-02-11] MEDS: dexMEDEtomidine 200 MCG/50 ML BAG IV SCH ×7 (02:07→21:30)
[2023-02-11] MEDS: chlordiazePOXIDE HCl 25 MG CAP PO SCH ×2 (02:39→05:44)
[2023-02-11] MEDS: LIDOCAINE 5% 1 PATCH TD SCH ×2 (03:57→20:41)
[2023-02-11] MEDS: PLASMA-LYTE A 1,000 ML IV SCH ×3 (03:58→17:31)
[2023-02-11 03:59] LABS: Basophils # (auto) 0.04 K/uL (0.00-0.20); Basophils % (auto) 0.5 %; Eosinophils # (auto) 0.18 K/uL (0.00-0.50); Eosinophils % (auto) 2.3 %; Hematocrit (blood only) 33.5 % (42.0-52.0); Hemoglobin 11.8 g/dl (14.0-18.0); Immature Granulocytes # (auto) 0.04 K/uL (0.01-0.20); Immature Granulocytes % (auto) 0.5 %; Lymphocytes # (auto) 1.44 K/uL (1.20-3.40); Lymphocytes % (auto) 18.3 %; Mean Corpuscular Hgb Conc 35.2 g/dL (32.0-36.0); Mean Corpuscular Volume 96.5 fL (80.0-100.0); Mean Platelet Volume 9.2 fL (9.4-12.4); Monocytes # (auto) 0.98 K/uL (0.11-0.59); Monocytes % (auto) 12.4 %; Neutrophils # (auto) 5.21 K/uL (1.40-6.50); Platelet Count 265 K/uL (130-400); RDW Standard Deviation 42.3 fL (36.4-46.3); Red Blood Count 3.47 M/uL (4.70-6.10); White Blood Count 7.89 K/ul (4.8-10.8)
[2023-02-11 04:21] LABS: Albumin Globulin Ratio 1.6 (0.9-2); Albumin Level 3.6 gm/dl (3.4-5.0); BUN Creatinine Ratio 22.5 (10-20); Calcium 8.9 mg/dl (8.6-10.3); Creatinine Clr Calc Pharmacy 101.4 ml/min; Est GFR (Non-African American) 95.7 ml/min; Globulin 2.3 gm/dl (2.5-4.0); Magnesium 1.7 mg/dl (1.7-2.4); Phosphorus 3.8 mg/dl (2.5-4.9); Potassium 3.8 mmol/L (3.5-5.1); Total Protein 5.9 gm/dl (6.0-8.3)
[2023-02-11 04:27] LABS: Prothrombin Time 11.4 Seconds (9.0-12.0)
[2023-02-11] MEDS: POTASSIUM CHLORIDE / WTR 10 MEQ/100 ML PLCT IV SCH ×2 (08:10→09:13)
[2023-02-11] MEDS: MAGNESIUM SULFATE / D5W 1 GM/100 ML BAG IV SCH ×2 (08:10→10:10)
[2023-02-11] MEDS: lisinopril 40 MG TAB PO SCH (08:11)
[2023-02-11] MEDS: FOLIC ACID 1 MG TAB PO SCH (08:11)
[2023-02-11] MEDS: buPROPion SR 100 MG TABCR PO SCH ×2 (08:11→20:23)
[2023-02-11] MEDS: busPIRone 15 MG TAB PO SCH ×3 (08:11→20:23)
[2023-02-11] MEDS: MAGNESIUM OXIDE 400 MG TAB PO SCH (08:11)
[2023-02-11] MEDS: THIAMINE HCL 100 MG in SYRINGE 9 ML IV SCH (08:12)
[2023-02-11] MEDS: METOPROLOL TARTRATE 25 MG TAB PO SCH (08:12)
[2023-02-11] MEDS: POLYETHYLENE (MIRALAX) 17 GM PACK PO SCH (08:12)
[2023-02-11] MEDS: PANTOprazole 40 MG TAB PO SCH (08:12)
--- NOTE | 2023-02-11 08:21 | Critical Care Progress Note ---
Date of Service February 11, 2023 Assessment & Plan (1) Delirium tremens: (2) Myelopathy concurrent with and due to spinal stenosis of thoracic region: (3) HTN (hypertension): (4) HLD (hyperlipidemia): Plan Reason Critically Ill: 67-year-old male presents to the ICU following emergent spinal decompression with fusion of T10-T12 and undergoing treatment for her alcohol withdrawal now with refractory DTs requiring Precedex drip. Neuro - Delirium tremens-alcohol history previously confirmed with the patient's , unsure of actual amount of consumption -Continue folic acid, thiamine -CT head 02/09 negative for acute intracranial abnormalities Spinal stenosis/thoracic radiculopathy -status post T10-T12 spinal decompression with fusion 02/03/2023. Management per surgical team Cardiac - HTN -On metoprolol Respiratory - -- Probable sleep apnea Will need outpatient polysomnography O2 supplementation to keep O2 saturation between 90-92% GI - N.p.o. for now, continue PPI RENAL/LYTES - Creatinine within normal limits, monitor routine BMPs replete electrolytes as indicated Plasma-Lyte at 80 mL/h - Foleystrict I's and O's ENDO - No history of diabetes or thyroid disease, ICU hyperglycemic protocol HEME - H&H stable, monitor routine CBCs ID - No indication for infectious process at this time, trend fever curve --Prophylaxis VTE: IPC GI: Pantoprazole Lines: Peripheral Diet: N.p.o. Plan: In/out: -2 L, urine output 2200 mL, +1.7 L since coming to the hospital We will discontinue chlordiazepoxide and start the patient on lorazepam 2 mg every 6 hours. We will try to wean off Precedex if possible. Keep the patient RASS -1 Potassium and magnesium being replaced I have personally spent 38 minutes of critical care time in the direct management of this patient. This is a life/limb threatening event. This includes time spent evaluating patient, direct bedside care, chart review, placing orders, interpretation of diagnostic studies, discussion with consultants, patient, and family members, as well as other required patient management activities. This time is exclusive of all separately billable procedures, and teaching time and separate from and in addition to any other critical care service time. Thank you for allowing us to participate in the care of this patient. Please refer to my attending physician's documentation for any further recommendations. Admission and Anticipated Discharge Date Admission Date: February 01, 2023 Subjective Patient seen and examined at bedside. No acute distress. He was on Precedex 0.4 at the time of examination. RASS -2 He does have sleep apnea and had apneic episodes while I was examining him. He was saturating 97% on 7 L. He does go down when he has apneic episodes but goes up very easily. Has been afebrile Review of Systems Review of Systems: Unobtainable due to cognitive status Physical Exam Physical Exam: Constitutional: No acute distress HEENT: EOMI, PERRLA Respiratory system: Decreased air entry bilaterally, no wheeze, no rhonchi, positive crackles bilateral lower lobes CVS: S1-S2 positive, no murmurs or gallops Abdomen: Soft, nontender, nondistended, positive bowel sounds x4 Extremities: +2 pulses bilaterally radialis/ dorsalis pedis, no cyanosis, no edema Neuro: RASS -2, moving all extremities spontaneously, not following any commands Psych: Unable to assess G/U: Positive Devi Skin: no rashes, warm and dry Lymphatic: no cervical or axillary lymphadenopathy Results & Data Results & Data Vital Signs (Past 12 Hours) Vital Signs Temp Pulse Pulse Resp BP BP Pulse Ox 02/11/23 06:00 75 23 96 02/11/23 06:00 127/76 02/11/23 05:00 79 22 98 02/11/23 05:00 113/74 02/11/23 04:00 80 28 H 93 02/11/23 04:00 147/93 H 02/11/23 03:00 79 22 99 02/11/23 03:00 119/82 02/11/23 02:13 82 21 91 02/11/23 02:13 142/89 H 02/11/23 02:00 92 H 16 95 02/11/23 01:00 86 31 H 02/11/23 00:00 89 41 H 02/10/23 23:00 87 55 H 02/10/23 22:01 90 16 02/10/23 21:00 88 21 02/11/23 00:32 02/10/23 22:11 36.5 C 82 22 160/97 H 93 02/10/23 20:41 36.5 C 85 16 148/88 H 96 O2 Del Method O2 Flow Rate 02/11/23 06:00 02/11/23 06:00 02/11/23 05:00 02/11/23 05:00 02/11/23 04:00 02/11/23 04:00 02/11/23 03:00 02/11/23 03:00 02/11/23 02:13 02/11/23 02:13 02/11/23 02:00 02/11/23 01:00 02/11/23 00:00 02/10/23 23:00 02/10/23 22:01 02/10/23 21:00 02/11/23 00:32 Room Air 92 02/10/23 22:11 Room Air 02/10/23 20:41 Room Air Laboratory Results 02/11/23 03:40 02/11/23 03:40 Coding Level of Care Code 43549 CRITICAL CARE 1ST 30-74M Diagnoses Delirium tremens F10.931 Myelopathy concurrent with and due to spinal stenosis of thoracic region M48.04; G99.2 HTN (hypertension) I10 HLD (hyperlipidemia) E78.5 Time Spent (min) 38
[2023-02-11] MEDS: ICU Protocol for HYPERglycemia SCH ×4 (08:30→23:34)
[2023-02-11] MEDS: LORazepam 2 MG/1 ML VIAL IV SCH ×3 (10:10→23:25)
[2023-02-11] MEDS ORDERED: METOPROLOL TARTRATE 1 MG/ML VIAL IV PRN (10:12)
[2023-02-11] MEDS: FOLIC ACID 1 MG in SYRINGE 9.8 ML IV SCH (10:48)
[2023-02-11] MEDS: PANTOprazole 40 MG in SYRINGE 0 ML IV SCH ×2 (10:49→20:40)
[2023-02-11] MEDS ORDERED: LORazepam 2 MG/1 ML VIAL IV STA ×3 (12:01→15:43)
[2023-02-11] MEDS: LORazepam 2 MG/1 ML VIAL IV PRN ×3 (13:14→15:28)
--- NOTE | 2023-02-11 17:01 | Hospitalist Progress Note ---
Date of Service February 11, 2023 Assessment & Plan (1) Thoracic radiculopathy: Plan: Patient presenting for evaluation of back pain, right foot drop, bilateral leg weakness and numbness. Outpatient thoracic MRI from 01/27 -at T10/11, there is a broad-based midline disc protrusion measuring 4 mm in diameter causing moderate flattening of the cord. There is severe spinal canal stenosis secondary to the protrusion and bilateral facet osteoarthritis. Myelopathy concurrent with and due to spinal stenosis of thoracic region --Lumbar spine MRI:Multilevel degenerative changes are seen. There is up to severe left and moderate right bilateral neural foraminal stenosis. Mild canal stenosis is seen. Partially visualized, there appears to be significant canal or neural foraminal stenosis in the lower thoracic spine most prominently at T10-T11. If there is concern for spinal cord impingement, dedicated thoracic spine MRI can be performed. S/P Decompression and fusion T10-T12 by on 02/03/23 Postoperative acute blood loss Activity and wound care orders as per ortho Pain control with bowel regimen Continue PT/OT as able Appreciate orthopedics help Monitor CBC, currently no indications for blood transfusion Fall precautions Needs follow-up with orthopedics upon discharge Pain seem to be controlled (2) Alcohol withdrawal: Plan: Acute metabolic encephalopathy --CT Head:Motion degraded exam without acute intracranial abnormality. Alcohol withdrawal DTs Ex- reported to nursing that patient drinks alcohol heavily per record Was on gabapentin protocol Continue thiamine, folic acid Ativan as needed IV fluids as needed Currently on Precedex drip Appreciate materials planning analyst help Suspected sleep apnea Supplemental oxygen as needed Needs sleep study as outpatient (3) Ileus: Plan: --CT ABD:Multiple gas-distended loops of large bowel are seen. No small bowel obstruction is seen. Resolved, tolerating regular diet, bowel regimen resumed Monitor (4) HTN (hypertension): Plan: Chronic, stable Continue metoprolol and lisinopril (5) Anxiety: (6) Depression: Plan: Chronic, stable Continue home meds (7) Allergic rhinitis: Plan: Follows with allergy and receives immunotherapy injections. Discussed with Lizzy Child PA-C -- due for injection on 02/11. Office will not transport serum to hospital for administration and do not recommend injection while acutely ill. Outpatient follow up. (8) HLD (hyperlipidemia): Plan: Chronic, stable Continue statin DVT Px: TEDs/SCDs as per spine Ortho Admission and Anticipated Discharge Date Admission Date: February 01, 2023 Subjective Patient is seen and examined at bedside Poor historian secondary to mental status change Intermittently agitated due to withdrawal symptoms Discussed with ICU team today Patient denies any chest pain, dyspnea, abdominal pain on Precedex drip Review of Systems Review of Systems: All systems reviewed & are unremarkable except as noted in Subjective Physical Exam Physical Exam: Physical Exam: Vitals signs as noted above General Appearance:Moderately built and nourished, no apparent distress Head: normocephalic, Atraumatic Eyes: normal inspection, EOMI Neck: supple, Trachea midline Respiratory/Chest: Normal breath sounds, CTA, No accessory muscle use Cardiovascular: S1, S2, No murmur Abdomen/GI:Soft, Non tender, Bowel sounds present Back: Surgical site Extremities/Musculoskeletal:normal inspection, no edema Neurologic/Psych:AAOX1, grossly no focal neurological deficits, +Confused Skin: normal color, warm Results & Data Results & Data Vital Signs (Past 12 Hours) Vital Signs Pulse Resp BP Pulse Ox O2 Del Method O2 Flow Rate 02/11/23 15:28 86 02/11/23 13:35 81 163/99 H 02/11/23 13:20 82 147/91 H 02/11/23 12:21 161/78 H 02/11/23 12:21 80 15 99 02/11/23 12:00 84 22 96 02/11/23 11:01 77 13 02/11/23 11:01 111/96 02/11/23 11:00 79 18 02/11/23 10:02 139/73 02/11/23 10:02 78 15 97 02/11/23 10:00 79 19 74 L 02/11/23 10:27 Oxymask 3 02/11/23 09:00 77 25 H 85 L 02/11/23 09:00 136/83 02/11/23 08:30 74 28 H 90 02/11/23 08:00 77 21 96 02/11/23 07:30 76 30 H 99 02/11/23 07:00 73 21 100 02/11/23 07:00 134/77 02/11/23 06:30 73 26 H 98 02/11/23 08:55 75 02/11/23 06:00 75 23 96 02/11/23 06:00 127/76 02/11/23 05:00 79 22 98 02/11/23 05:00 113/74 Laboratory Results Short CBC 02/11/23 Range/Units 03:40 WBC 7.89 (4.8-10.8) K/ul Hgb 11.8 L (14.0-18.0) g/dl Hct 33.5 L (42.0-52.0) % Plt Count 265 (130-400) K/uL BMP 02/11/23 03:40 Sodium 135 L Potassium 3.8 Chloride 103 Carbon Dioxide 26 BUN 16 Creatinine 0.71 Glucose 113 H Calcium 8.9 Liver Function 02/11/23 Range/Units 03:40 Total Bilirubin 1.0 (0.2-1.0) mg/dl AST 15 (13-39) U/L ALT 10 (7-52) U/L Alkaline Phosphatase 78 (34-104) U/L Albumin 3.6 (3.4-5.0) gm/dl
[2023-02-11] MEDS: traZODone HCL 100 MG TAB PO SCH (20:23)
[2023-02-11] MEDS: DOCUSATE SODIUM/SENNA 50/8.6MG TAB PO SCH (20:23)
[2023-02-11] MEDS: ATORVASTATIN 40 MG TAB PO SCH (20:23)
[2023-02-12] MEDS: dexMEDEtomidine 200 MCG/50 ML BAG IV SCH ×6 (00:58→11:30)
[2023-02-12] MEDS ORDERED: chlordiazePOXIDE HCl 25 MG CAP PO SCH (02:00)
[2023-02-12] MEDS: LORazepam 2 MG/1 ML VIAL IV PRN ×5 (02:30→07:23)
[2023-02-12 04:19] LABS: Basophils # (auto) 0.03 K/uL (0.00-0.20); Basophils % (auto) 0.3 %; Eosinophils # (auto) 0.37 K/uL (0.00-0.50); Eosinophils % (auto) 3.9 %; Hematocrit (blood only) 36.2 % (42.0-52.0); Hemoglobin 12.7 g/dl (14.0-18.0); Immature Granulocytes # (auto) 0.04 K/uL (0.01-0.20); Immature Granulocytes % (auto) 0.4 %; Lymphocytes # (auto) 1.06 K/uL (1.20-3.40); Lymphocytes % (auto) 11.2 %; Mean Corpuscular Hemoglobin 34.2 pg (25.0-34.0); Mean Corpuscular Hgb Conc 35.1 g/dL (32.0-36.0); Mean Corpuscular Volume 97.6 fL (80.0-100.0); Mean Platelet Volume 9.5 fL (9.4-12.4); Monocytes # (auto) 0.85 K/uL (0.11-0.59); Neutrophils # (auto) 7.09 K/uL (1.40-6.50); Neutrophils % (auto) 75.2 %; Platelet Count 273 K/uL (130-400); RDW Coefficient of Variation 11.8 % (11.5-14.5); RDW Standard Deviation 42.4 fL (36.4-46.3); Red Blood Count 3.71 M/uL (4.70-6.10); White Blood Count 9.44 K/ul (4.8-10.8)
[2023-02-12] MEDS: PLASMA-LYTE A 1,000 ML IV SCH ×3 (04:25→23:53)
[2023-02-12 04:39] LABS: Prothrombin Time 11.2 Seconds (9.0-12.0)
[2023-02-12 04:42] LABS: Albumin Globulin Ratio 1.5 (0.9-2); Albumin Level 3.6 gm/dl (3.4-5.0); BUN Creatinine Ratio 20.3 (10-20); Bilirubin,Total 1.2 mg/dl (0.2-1.0); Creatinine Clr Calc Pharmacy 104.3 ml/min; Est GFR (African American) 112.3 ml/min; Est GFR (Non-African American) 96.9 ml/min; Globulin 2.4 gm/dl (2.5-4.0); Magnesium 1.7 mg/dl (1.7-2.4); Phosphorus 2.8 mg/dl (2.5-4.9); Potassium 3.9 mmol/L (3.5-5.1)
[2023-02-12] MEDS: LORazepam 2 MG/1 ML VIAL IV SCH (06:33)
[2023-02-12] MEDS: ICU Protocol for HYPERglycemia SCH ×4 (07:25→21:28)
[2023-02-12] MEDS: lisinopril 40 MG TAB PO SCH (07:26)
[2023-02-12] MEDS: buPROPion SR 100 MG TABCR PO SCH (07:26)
[2023-02-12] MEDS: busPIRone 15 MG TAB PO SCH ×3 (07:26→20:41)
[2023-02-12] MEDS: POLYETHYLENE (MIRALAX) 17 GM PACK PO SCH (07:26)
--- NOTE | 2023-02-12 08:13 | Critical Care Progress Note ---
Date of Service February 12, 2023 Assessment & Plan (1) Delirium tremens: (2) Myelopathy concurrent with and due to spinal stenosis of thoracic region: (3) HTN (hypertension): (4) HLD (hyperlipidemia): Plan Reason Critically Ill: 67-year-old male presents to the ICU following emergent spinal decompression with fusion of T10-T12 and undergoing treatment for alcohol withdrawal now with refractory DTs requiring Precedex drip. Neuro - Delirium tremens-alcohol history previously confirmed with the patient's , unsure of actual amount of consumption -Continue folic acid, thiamine -CT head 02/09 negative for acute intracranial abnormalities Spinal stenosis/thoracic radiculopathy -status post T10-T12 spinal decompression with fusion 02/03/2023. Management per surgical team Cardiac - HTN -On metoprolol Respiratory - -- Probable sleep apnea Will need outpatient polysomnography O2 supplementation to keep O2 saturation between 90-92% GI - N.p.o. for now, continue PPI RENAL/LYTES - Creatinine within normal limits, monitor routine BMPs replete electrolytes as indicated Plasma-Lyte at 80 mL/h - Foleystrict I's and O's ENDO - No history of diabetes or thyroid disease, ICU hyperglycemic protocol HEME - H&H stable, monitor routine CBCs ID - -- New onset fever Tmax 38.7 Could very well be from DTs UA was clean 02/11/2023 Chest x-ray does not show any new infiltrate Follow blood culture --Prophylaxis VTE: Lovenox GI: Pantoprazole Lines: Peripheral Diet: N.p.o. Plan: In/out: +1.5 L, urine output 1925 Given the significant agitation even with Precedex and Ativan pushes, plan to in tubate with propofol infusion Magnesium being replaced. Start the patient on tube feeds after intubation Given the new onset fever. I will repeat blood cultures and start him on Rocephin Fever is likely from underlying DTs I have personally spent 40 minutes of critical care time in the direct management of this patient. This is a life/limb threatening event. This includes time spent evaluating patient, direct bedside care, chart review, placing orders, interpretation of diagnostic studies, discussion with consultants, patient, and family members, as well as other required patient management activities. This time is exclusive of all separately billable procedures, and teaching time and separate from and in addition to any other critical care service time. Thank you for allowing us to participate in the care of this patient. Please refer to my attending physician's documentation for any further recommendations. Admission and Anticipated Discharge Date Admission Date: February 01, 2023 Subjective Patient seen and examined at bedside. Restless and agitated Not following any commands Has been spiking low-grade fever He got 13 mg of Ativan overnight. He was on Precedex 0.8 Review of Systems Review of Systems: All systems reviewed & are unremarkable except as noted in Subjective Physical Exam Physical Exam: Constitutional: No acute distress HEENT: EOMI, PERRLA Respiratory system: Decreased air entry bilaterally, no wheeze, no rhonchi, positive crackles bilateral lower lobes CVS: S1-S2 positive, no murmurs or gallops Abdomen: Soft, nontender, nondistended, positive bowel sounds x4 Extremities: +2 pulses bilaterally radialis/ dorsalis pedis, no cyanosis, no edema Neuro: RASS 1, moving all extremities spontaneously, not following any commands Psych: Unable to assess G/U: Positive Devi Skin: no rashes, warm and dry Lymphatic: no cervical or axillary lymphadenopathy Results & Data Results & Data Vital Signs (Past 12 Hours) Vital Signs Temp Pulse Resp BP Pulse Ox O2 Del Method O2 Flow Rate 02/12/23 07:54 Nasal Cannula 3 02/12/23 03:30 36.9 C 75 31 H 93 02/12/23 03:00 36.8 C 79 26 H 135/80 92 02/12/23 02:30 36.5 C 82 23 93 02/12/23 02:00 36.3 C L 74 26 H 97 02/12/23 02:00 135/76 02/12/23 01:30 36.3 C L 73 28 H 96 02/12/23 01:00 36.2 C L 74 26 H 123/92 96 02/12/23 00:30 36.1 C L 75 26 H 95 02/12/23 00:00 36.0 C L 73 26 H 131/87 96 02/11/23 23:30 36.1 C L 71 29 H 95 02/11/23 23:00 36.2 C L 69 22 97 02/11/23 23:00 139/88 02/11/23 22:30 36.3 C L 72 20 97 02/11/23 22:00 36.3 C L 71 24 131/82 94 02/11/23 21:30 36.3 C L 74 24 97 02/11/23 21:00 36.4 C L 76 24 129/83 97 02/11/23 20:30 36.5 C 76 96 02/11/23 20:51 Oxymask 3 Laboratory Results 02/12/23 03:24 02/12/23 03:24 Coding Level of Care Code 53179 CRITICAL CARE 1ST 30-74M Diagnoses Delirium tremens F10.931 Myelopathy concurrent with and due to spinal stenosis of thoracic region M48.04; G99.2 HTN (hypertension) I10 HLD (hyperlipidemia) E78.5 Time Spent (min) 40
[2023-02-12] MEDS ORDERED: RAPID SEQUENCE INDUCTION BAG ONE (08:25)
[2023-02-12] MEDS ORDERED: PROPOFOL IV EMULSION 10 MG/ML 100 ML VIAL IV ONE (08:31)
--- NOTE | 2023-02-12 08:44 | Procedure Note ---
Procedure Note Date of Service February 12, 2023 Note INTUBATION PROCEDURE NOTE: Attending: Dr Cameron Valencia MD Patient was evaluated and plan to intubate was made for severe agitation from DTs. Sedative agent used: 100 mg lidocaine, 20 mg etomidate Paralysis agent used: 40 mg rocuronium Emergent consent was implied given patients rapidly declining clinical status and need for airway protection. The patient was prepared in the appropriate fashion. The patient was easily pre-oxygenated by using [id number] ventilation. With help of CMAC grade 2 vocal cords were visualized and 7.5 Arabic ETT was introduced on first attempt to 25 cm at the lip. The stylette was removed and balloon was inflated with 10mL of air. Appropriate Colorimetric change was appreciated for at least 10 breaths. Bilateral chest rise and breath sounds were appreciated without air sounds in the epigastrium. Patient tolerated the procedure well and there were no immediate complications. Chest Xray to follow for confirming placement. Coding CPT Codes Resuscitation - Resuscitation: 64314 Endotracheal Intubation, emergency ([id number]) [facility] [place] Procedure Codes (Charges) Resuscitation Resuscitation: 04861 Endotracheal Intubation, emergency
[2023-02-12] MEDS ORDERED: fentaNYL citrate 2,500 MCG/250 ML BAG IV ONE (09:00)
[2023-02-12] MEDS: MAGNESIUM SULFATE / D5W 1 GM/100 ML BAG IV SCH ×3 (09:07→12:55)
[2023-02-12] MEDS: THIAMINE HCL 100 MG in SYRINGE 9 ML IV SCH (09:09)
[2023-02-12] MEDS: PANTOprazole 40 MG in SYRINGE 0 ML IV SCH (09:09)
[2023-02-12] MEDS: FOLIC ACID 1 MG in SYRINGE 9.8 ML IV SCH (09:09)
[2023-02-12] MEDS ORDERED: STAT IV Infusion **Titration per Protocol STA ×2 (09:13→10:58)
[2023-02-12] MEDS ORDERED: PLASMA-LYTE A 500 ML IV ONE (09:27)
--- NOTE | 2023-02-12 09:27 | XRay Report ---
SINGLE VIEW CHEST CLINICAL HISTORY: Respiratory failure. Intubation. FINDINGS: An AP, portable, upright chest radiograph is compared to study dated 02/08/2023. An endotrac heal tube has been placed. The tip projects approximately 3.5 cm above the josselyn. An enteric tube henao s been placed. The tip projects below the diaphragm over the gastric fundus. The heart is enlarged no ting atherosclerotic calcification of the thoracic aorta. Chronic interstitial thickening is similar to previous. There is bibasilar scarring/atelectasis. The lungs and pleural spaces are otherwise tara r. No pneumothorax is seen. The skeletal structures are osteopenic. The bony thorax is grossly intact . Fusion hardware is noted at the thoracolumbar junction. IMPRESSION: 1. Endotracheal and enteric tubes have been placed as above. 2. Cardiomegaly with no acute cardiopulmonary abnormality identified. ACT 112: Negative or not required by law. Electronically signed by: Brian Mcgregor M.D. 02/12/2023 9:25 AM
[2023-02-12] MEDS: fentaNYL citrate 2,500 MCG/250 ML BAG IV SCH (09:31)
[2023-02-12] MEDS: propofoL 1,000 MG/100 ML VIAL IV SCH ×3 (09:32→23:19)
[2023-02-12] MEDS: fentaNYL BOLUS from BAG IV PRN ×2 (09:33→16:45)
[2023-02-12] MEDS: PROPOFOL BOLUS FROM BAG IV PRN ×4 (09:39→19:33)
[2023-02-12] MEDS ORDERED: LIDOCAINE 2% 20 MG/ML 5 ML SYR IV ONE (10:54)
[2023-02-12] MEDS ORDERED: ETOMIDATE 2 MG/ML 20 ML VIAL IV ONE (10:54)
[2023-02-12] MEDS ORDERED: ROCURONIUM BROMIDE 10 MG/ML 5 ML VIAL IV ONE (10:54)
[2023-02-12] MEDS ORDERED: fentaNYL BOLUS from BAG IV PRN (10:58)
[2023-02-12] MEDS ORDERED: PROPOFOL BOLUS FROM BAG IV PRN (10:58)
[2023-02-12] MEDS ORDERED: propofoL 1,000 MG/100 ML VIAL IV SCH (11:00)
[2023-02-12] MEDS ORDERED: fentaNYL citrate 2,500 MCG/250 ML BAG IV SCH (11:00)
[2023-02-12 11:45] LABS: iSTAT Allen Test Pass; iSTAT Art Bld Gas pCO2 Correct 34 mmHg (35-46); iSTAT Art Bld Gas pH Corrected 7.455 (7.35-7.45); iSTAT Arterial Blood Gas HCO3 24 meg/L (19-24); iSTAT Arterial Blood Gas pCO2 33 mmHg (35-46); iSTAT Arterial Blood Gas pH 7.47 (7.35-7.45); iSTAT Arterial Blood Gas pO2 64 mmHg (80-95); iSTAT Arterial Blood Gas pO2 C 68; iSTAT Carbon Dioxide 25 mmol/L (24-31); iSTAT FiO2 50 %; iSTAT Hematocrit 35 % (42-52); iSTAT Hemoglobin 11.9 g/dl (14.0-18.0); iSTAT Potassium 4.2 mmol/L (3.3-5.0); iSTAT Site R Radial; iSTAT Sodium 132 mmol/L (135-144)
[2023-02-12] MEDS ORDERED: ACETAMINOPHEN 1,000 MG/100 ML VIAL IV STA (12:52)
[2023-02-12] MEDS: ENOXAPARIN INJ 40 MG/0.4 ML SYR SQ SCH (12:55)
[2023-02-12] MEDS: cefTRIAXone SODIUM 2,000 MG in DEXTROSE 5% 50 ML IV SCH (13:17)
[2023-02-12] MEDS: TUBE FEEDING WATER FLUSH OG SCH ×3 (13:41→20:37)
[2023-02-12] MEDS: PEPTAMEN INTENSE VHP 1.0 CAL 1,000 ML BAG OG SCH (14:18)
--- NOTE | 2023-02-12 15:59 | Hospitalist Progress Note ---
Date of Service February 12, 2023 Assessment & Plan (1) Thoracic radiculopathy: Plan: Patient presenting for evaluation of back pain, right foot drop, bilateral leg weakness and numbness. Outpatient thoracic MRI from 01/27 -at T10/11, there is a broad-based midline disc protrusion measuring 4 mm in diameter causing moderate flattening of the cord. There is severe spinal canal stenosis secondary to the protrusion and bilateral facet osteoarthritis. Myelopathy concurrent with and due to spinal stenosis of thoracic region --Lumbar spine MRI:Multilevel degenerative changes are seen. There is up to severe left and moderate right bilateral neural foraminal stenosis. Mild canal stenosis is seen. Partially visualized, there appears to be significant canal or neural foraminal stenosis in the lower thoracic spine most prominently at T10-T11. If there is concern for spinal cord impingement, dedicated thoracic spine MRI can be performed. S/P Decompression and fusion T10-T12 by on 02/03/23 Postoperative acute blood loss Activity and wound care orders as per ortho Pain control with bowel regimen Continue PT/OT as able Appreciate orthopedics help Monitor CBC, currently no indications for blood transfusion Fall precautions Needs follow-up with orthopedics upon discharge (2) Alcohol withdrawal: Plan: Acute metabolic encephalopathy --CT Head:Motion degraded exam without acute intracranial abnormality. Alcohol withdrawal DTs Ex- reported to nursing that patient drinks alcohol heavily per record S/P Intubation 02/12/23 Was on gabapentin protocol Continue thiamine, folic acid Ativan as needed IV fluids as needed Currently on Precedex drip Appreciate candy cutter machine help Started on tube feeds Empirically started on Rocephin Suspected sleep apnea Supplemental oxygen as needed Needs sleep study as outpatient (3) Ileus: Plan: --CT ABD:Multiple gas-distended loops of large bowel are seen. No small bowel obstruction is seen. Resolved, tolerating regular diet, bowel regimen resumed Monitor (4) HTN (hypertension): Plan: Chronic, stable Continue metoprolol and lisinopril (5) Anxiety: (6) Depression: Plan: Chronic, stable Continue home meds (7) Allergic rhinitis: Plan: Follows with allergy and receives immunotherapy injections. Discussed with Lizzy Child PA-C -- due for injection on 02/11. Office will not transport serum to hospital for administration and do not recommend injection while acutely ill. Outpatient follow up. (8) HLD (hyperlipidemia): Plan: Chronic, stable Continue statin DVT Px: Lovenox SQ Admission and Anticipated Discharge Date Admission Date: February 01, 2023 Subjective Patient is seen and examined at bedside Patient was intubated today Unable to obtain any history Discussed with patient's family at bedside Review of Systems Review of Systems: Unobtainable due to endotracheal tube Physical Exam Physical Exam: Physical Exam: Vitals signs as noted above General Appearance:Moderately built and nourished, no apparent distress, +Intubated Head: normocephalic, Atraumatic Eyes: normal inspection, EOMI Neck: supple, Trachea midline Respiratory/Chest: Normal breath sounds, CTA, No accessory muscle use Cardiovascular: S1, S2, No murmur Abdomen/GI:Soft, Non tender, Bowel sounds present Back: Surgical site Extremities/Musculoskeletal:normal inspection, no edema Neurologic/Psych:Sedated and Intubated Skin: normal color, warm Results & Data Results & Data Vital Signs (Past 12 Hours) Vital Signs Temp Pulse Resp BP Pulse Ox O2 Del Method O2 Flow Rate 02/12/23 14:58 99 H 15 97 02/12/23 13:34 135/84 02/12/23 13:34 38.7 C H 101 H 17 96 02/12/23 13:00 38.5 C H 97 H 15 98 02/12/23 12:00 38.1 C H 89 20 95 02/12/23 12:00 119/75 02/12/23 08:00 36.8 C 86 21 132/112 H 93 Nasal Cannula 3 02/12/23 07:00 36.2 C L 84 35 H 128/99 93 Nasal Cannula 3 02/12/23 11:41 87 20 97 02/12/23 11:00 37.6 C H 82 20 95 02/12/23 11:00 124/74 02/12/23 10:00 37.2 C 78 20 98 02/12/23 10:00 109/69 02/12/23 09:22 74/53 L 02/12/23 09:00 37.5 C 82 20 91 02/12/23 09:00 112/75 02/12/23 09:30 80 20 93 02/12/23 08:48 Mechanical Vent 02/12/23 07:54 Nasal Cannula 3 FiO2 02/12/23 14:58 40 02/12/23 13:34 02/12/23 13:34 40 02/12/23 13:00 02/12/23 12:00 02/12/23 12:00 02/12/23 08:00 02/12/23 07:00 02/12/23 11:41 50 02/12/23 11:00 02/12/23 11:00 02/12/23 10:00 02/12/23 10:00 02/12/23 09:22 02/12/23 09:00 50 02/12/23 09:00 02/12/23 09:30 40 02/12/23 08:48 40 02/12/23 07:54 Laboratory Results Short CBC 02/12/23 Range/Units 03:24 WBC 9.44 (4.8-10.8) K/ul Hgb 12.7 L (14.0-18.0) g/dl Hct 36.2 L (42.0-52.0) % Plt Count 273 (130-400) K/uL BMP 02/12/23 03:24 Sodium 134 L Potassium 3.9 Chloride 100 Carbon Dioxide 27 BUN 14 Creatinine 0.69 Glucose 101 H Calcium 9.0 Liver Function 02/12/23 Range/Units 03:24 Total Bilirubin 1.2 H (0.2-1.0) mg/dl AST 14 (13-39) U/L ALT 9 (7-52) U/L Alkaline Phosphatase 88 (34-104) U/L Albumin 3.6 (3.4-5.0) gm/dl
[2023-02-12] MEDS ORDERED: Nursing to Pharmacy Communication SCH (16:30)
[2023-02-12] MEDS: DOCUSATE SODIUM SYRUP 100 MG/10 ML UDC PO SCH (17:53)
[2023-02-12] MEDS: ICU ELECTROLYTE REPLACEMENT PROTOCOL SCH (18:04)
[2023-02-12] MEDS: LIDOCAINE 5% 1 PATCH TD SCH (20:40)
[2023-02-12] MEDS: ATORVASTATIN 40 MG TAB PO SCH (20:41)
[2023-02-12] MEDS: traZODone HCL 100 MG TAB PO SCH (20:41)
[2023-02-12] MEDS: DOCUSATE SODIUM/SENNA 50/8.6MG TAB PO SCH (20:44)
[2023-02-12] MEDS: ACETAMINOPHEN 1,000 MG/100 ML VIAL IV SCH (21:27)
[2023-02-13] MEDS: TUBE FEEDING WATER FLUSH OG SCH ×6 (00:47→20:32)
[2023-02-13] MEDS: PROPOFOL BOLUS FROM BAG IV PRN (02:19)
[2023-02-13 04:11] LABS: Basophils # (auto) 0.03 K/uL (0.00-0.20); Basophils % (auto) 0.3 %; Eosinophils # (auto) 0.27 K/uL (0.00-0.50); Eosinophils % (auto) 2.8 %; Hemoglobin 11.7 g/dl (14.0-18.0); Immature Granulocytes # (auto) 0.05 K/uL (0.01-0.20); Immature Granulocytes % (auto) 0.5 %; Lymphocytes # (auto) 1.25 K/uL (1.20-3.40); Mean Corpuscular Hemoglobin 33.9 pg (25.0-34.0); Mean Corpuscular Hgb Conc 35.5 g/dL (32.0-36.0); Mean Corpuscular Volume 95.7 fL (80.0-100.0); Mean Platelet Volume 9.6 fL (9.4-12.4); Monocytes % (auto) 8.3 %; Neutrophils # (auto) 7.21 K/uL (1.40-6.50); Neutrophils % (auto) 75.1 %; Platelet Count 275 K/uL (130-400); RDW Coefficient of Variation 12.1 % (11.5-14.5); RDW Standard Deviation 42.5 fL (36.4-46.3); Red Blood Count 3.45 M/uL (4.70-6.10); White Blood Count 9.61 K/ul (4.8-10.8)
[2023-02-13 04:30] LABS: Albumin Globulin Ratio 1.3 (0.9-2); Albumin Level 3.1 gm/dl (3.4-5.0); BUN Creatinine Ratio 18.2 (10-20); Bilirubin,Total 0.8 mg/dl (0.2-1.0); Calcium 8.3 mg/dl (8.6-10.3); Creatinine Clr Calc Pharmacy 91.6 ml/min; Est GFR (African American) 107.3 ml/min; Est GFR (Non-African American) 92.6 ml/min; Globulin 2.4 gm/dl (2.5-4.0); Potassium 3.3 mmol/L (3.5-5.1); Total Protein 5.5 gm/dl (6.0-8.3)
[2023-02-13 04:39] LABS: Prothrombin Time 11.4 Seconds (9.0-12.0)
[2023-02-13] MEDS: ACETAMINOPHEN 1,000 MG/100 ML VIAL IV SCH ×3 (05:45→20:32)
[2023-02-13] MEDS: propofoL 1,000 MG/100 ML VIAL IV SCH ×6 (06:19→23:24)
[2023-02-13] MEDS: ICU ELECTROLYTE REPLACEMENT PROTOCOL SCH ×2 (07:18→18:33)
[2023-02-13] MEDS: POTASSIUM CHLORIDE 20 MEQ/15 ML UDC NG SCH ×2 (07:24→11:54)
[2023-02-13 08:57] LABS: iSTAT Allen Test Pass; iSTAT Art Bld Gas pCO2 Correct 39 mmHg (35-46); iSTAT Art Bld Gas pH Corrected 7.432 (7.35-7.45); iSTAT Arterial Blood Gas HCO3 26 meg/L (19-24); iSTAT Arterial Blood Gas pCO2 39 mmHg (35-46); iSTAT Arterial Blood Gas pH 7.44 (7.35-7.45); iSTAT Arterial Blood Gas pO2 69 mmHg (80-95); iSTAT Arterial Blood Gas pO2 C 70; iSTAT Carbon Dioxide 27 mmol/L (24-31); iSTAT FiO2 30 %; iSTAT Hematocrit 31 % (42-52); iSTAT Hemoglobin 10.5 g/dl (14.0-18.0); iSTAT Potassium 4.3 mmol/L (3.3-5.0); iSTAT Site R Radial; iSTAT Sodium 134 mmol/L (135-144)
--- NOTE | 2023-02-13 09:20 | Critical Care Progress Note ---
Date of Service February 13, 2023 Assessment & Plan (1) Delirium tremens: (2) Myelopathy concurrent with and due to spinal stenosis of thoracic region: (3) HTN (hypertension): (4) HLD (hyperlipidemia): Plan Reason Critically Ill: 67-year-old male presents to the ICU following emergent spinal decompression with fusion of T10-T12 and undergoing treatment for alcohol withdrawal now with refractory DTs requiring Precedex drip. Neuro - Delirium tremens-alcohol history previously confirmed with the patient's , unsure of actual amount of consumption -Continue folic acid, thiamine -CT head 02/09 negative for acute intracranial abnormalities -Transition to phenobarb taper - 10mg/kg load, 60% now than 3 hours 20% for an additional 3 hours 20% then transition to oral taper Spinal stenosis/thoracic radiculopathy -status post T10-T12 spinal decompression with fusion 02/03/2023. Management per surgical team Cardiac - HTN -On metoprolol Respiratory - -- Probable sleep apnea Will need outpatient polysomnography O2 supplementation to keep O2 saturation between 90-92% GI - Start tube feeding as we wean towards extubation RENAL/LYTES - Creatinine within normal limits, monitor routine BMPs replete electrolytes as indicated - Foleystrict I's and O's ENDO - No history of diabetes or thyroid disease, ICU hyperglycemic protocol HEME - H&H stable, monitor routine CBCs ID - -- New onset fever Tmax 38.7 No new oxygen requirement UA was unremarkable 02/11/2023 Chest x-ray does not show any new infiltrate Follow blood culture --Prophylaxis VTE: Lovenox GI: Pantoprazole Lines: Peripheral Diet: Tube feedings Updated patient's at bedside of treatment plan. I have personally spent 40 minutes of critical care time in the direct management of this patient. This is a life/limb threatening event. This includes time spent evaluating patient, direct bedside care, chart review, placing orders, interpretation of diagnostic studies, discussion with consultants, patient, and family members, as well as other required patient management activities. This time is exclusive of all separately billable procedures, and teaching time and separate from and in addition to any other critical care service time. Admission and Anticipated Discharge Date Admission Date: February 01, 2023 Subjective No overnight events Physical Exam Physical Exam: General: Sedated. nontoxic. Skin: Warm, dry, Head: Atraumatic Ears, nose, mouth and throat: airway obscured by endotracheal tube Cardiovascular: Normal peripheral perfusion Respiratory: Ventilator settings reviewed Gastrointestinal: Non distended Musculoskeletal: No deformity Results & Data Results & Data Vital Signs (Past 12 Hours) Vital Signs Temp Pulse Pulse Resp BP BP Pulse Ox 02/13/23 00:00 84 02/13/23 07:00 37.3 C 91 H 15 96 02/13/23 07:00 124/74 02/13/23 06:46 138/81 02/13/23 06:46 37.3 C 95 H 15 97 02/13/23 06:30 98 H 18 02/13/23 06:00 37.4 C 85 15 97 02/13/23 06:00 138/77 02/13/23 05:30 37.4 C 89 15 97 02/13/23 05:30 126/77 02/13/23 05:00 37.4 C 90 15 97 02/13/23 05:00 118/74 02/13/23 04:30 37.4 C 90 15 96 02/13/23 04:30 124/78 02/13/23 04:00 37.5 C 91 H 14 96 02/13/23 04:00 112/68 02/13/23 03:30 37.5 C 96 H 15 95 02/13/23 03:30 115/67 02/13/23 03:00 37.4 C 96 H 15 95 02/13/23 03:00 135/77 02/13/23 02:32 37.1 C 101 H 27 H 96 02/13/23 02:32 191/85 H 02/13/23 02:30 37.2 C 105 H 18 96 02/13/23 02:01 37.1 C 97 H 17 97 02/13/23 02:01 160/80 H 02/13/23 02:00 37.1 C 95 H 16 97 02/13/23 01:30 37.2 C 85 15 96 02/13/23 01:30 111/69 02/13/23 01:00 126/69 02/13/23 03:15 105 H 25 H 96 02/13/23 01:00 37.2 C 84 15 96 02/13/23 00:30 37.3 C 88 15 96 02/13/23 00:30 115/62 02/13/23 00:00 37.5 C 90 15 96 02/13/23 00:00 112/58 L 02/12/23 23:30 37.6 C H 90 15 95 02/12/23 23:30 110/56 L 02/12/23 23:00 37.7 C H 90 15 95 02/12/23 23:00 108/58 L 02/12/23 22:30 37.9 C H 91 H 15 94 02/12/23 22:30 100/56 L 02/12/23 22:00 37.9 C H 92 H 15 95 02/12/23 22:00 131/66 02/12/23 21:30 38.0 C H 94 H 15 96 02/12/23 21:30 140/72 02/12/23 22:00 37.9 C H 92 H 15 131/66 96 02/12/23 22:55 90 15 95 O2 Del Method FiO2 02/13/23 00:00 02/13/23 07:00 02/13/23 07:00 02/13/23 06:46 02/13/23 06:46 02/13/23 06:30 02/13/23 06:00 02/13/23 06:00 02/13/23 05:30 02/13/23 05:30 02/13/23 05:00 02/13/23 05:00 02/13/23 04:30 02/13/23 04:30 02/13/23 04:00 02/13/23 04:00 02/13/23 03:30 02/13/23 03:30 02/13/23 03:00 02/13/23 03:00 02/13/23 02:32 02/13/23 02:32 02/13/23 02:30 02/13/23 02:01 02/13/23 02:01 02/13/23 02:00 02/13/23 01:30 02/13/23 01:30 02/13/23 01:00 02/13/23 03:15 30 02/13/23 01:00 02/13/23 00:30 02/13/23 00:30 02/13/23 00:00 02/13/23 00:00 02/12/23 23:30 02/12/23 23:30 02/12/23 23:00 02/12/23 23:00 02/12/23 22:30 02/12/23 22:30 02/12/23 22:00 02/12/23 22:00 02/12/23 21:30 02/12/23 21:30 02/12/23 22:00 Mechanical Vent 02/12/23 22:55 40 Critical Care Results & Data Vital Signs (Past 12 Hours) Vital Signs Temp Pulse Pulse Resp BP BP Pulse Ox 02/13/23 00:00 84 02/13/23 07:00 37.3 C 91 H 15 96 02/13/23 07:00 124/74 02/13/23 06:46 138/81 02/13/23 06:46 37.3 C 95 H 15 97 02/13/23 06:30 98 H 18 02/13/23 06:00 37.4 C 85 15 97 02/13/23 06:00 138/77 02/13/23 05:30 37.4 C 89 15 97 02/13/23 05:30 126/77 02/13/23 05:00 37.4 C 90 15 97 02/13/23 05:00 118/74 02/13/23 04:30 37.4 C 90 15 96 02/13/23 04:30 124/78 02/13/23 04:00 37.5 C 91 H 14 96 02/13/23 04:00 112/68 02/13/23 03:30 37.5 C 96 H 15 95 02/13/23 03:30 115/67 02/13/23 03:00 37.4 C 96 H 15 95 02/13/23 03:00 135/77 02/13/23 02:32 37.1 C 101 H 27 H 96 02/13/23 02:32 191/85 H 02/13/23 02:30 37.2 C 105 H 18 96 02/13/23 02:01 37.1 C 97 H 17 97 02/13/23 02:01 160/80 H 02/13/23 02:00 37.1 C 95 H 16 97 02/13/23 01:30 37.2 C 85 15 96 02/13/23 01:30 111/69 02/13/23 01:00 126/69 02/13/23 03:15 105 H 25 H 96 02/13/23 01:00 37.2 C 84 15 96 02/13/23 00:30 37.3 C 88 15 96 02/13/23 00:30 115/62 02/13/23 00:00 37.5 C 90 15 96 02/13/23 00:00 112/58 L 02/12/23 23:30 37.6 C H 90 15 95 02/12/23 23:30 110/56 L 02/12/23 23:00 37.7 C H 90 15 95 02/12/23 23:00 108/58 L 02/12/23 22:30 37.9 C H 91 H 15 94 02/12/23 22:30 100/56 L 02/12/23 22:00 37.9 C H 92 H 15 95 02/12/23 22:00 131/66 02/12/23 21:30 38.0 C H 94 H 15 96 02/12/23 21:30 140/72 02/12/23 22:00 37.9 C H 92 H 15 131/66 96 02/12/23 22:55 90 15 95 O2 Del Method FiO2 02/13/23 00:00 02/13/23 07:00 02/13/23 07:00 02/13/23 06:46 02/13/23 06:46 02/13/23 06:30 02/13/23 06:00 02/13/23 06:00 02/13/23 05:30 02/13/23 05:30 02/13/23 05:00 02/13/23 05:00 02/13/23 04:30 02/13/23 04:30 02/13/23 04:00 02/13/23 04:00 02/13/23 03:30 02/13/23 03:30 02/13/23 03:00 02/13/23 03:00 02/13/23 02:32 02/13/23 02:32 02/13/23 02:30 02/13/23 02:01 02/13/23 02:01 02/13/23 02:00 02/13/23 01:30 02/13/23 01:30 02/13/23 01:00 02/13/23 03:15 30 02/13/23 01:00 02/13/23 00:30 02/13/23 00:30 02/13/23 00:00 02/13/23 00:00 02/12/23 23:30 02/12/23 23:30 02/12/23 23:00 02/12/23 23:00 02/12/23 22:30 02/12/23 22:30 02/12/23 22:00 02/12/23 22:00 02/12/23 21:30 02/12/23 21:30 02/12/23 22:00 Mechanical Vent 02/12/23 22:55 40 Lab & Micro Results (Past 24 Hours) RBC 3.45 M/uL (4.70-6.10) L 02/13/23 WBC 9.61 K/ul (4.8-10.8) 02/13/23 Hgb 11.7 g/dl (14.0-18.0) L 02/13/23 Hct 33.0 % (42.0-52.0) L 02/13/23 MCV 95.7 fL (80.0-100.0) 02/13/23 MCH 33.9 pg (25.0-34.0) 02/13/23 MCHC 35.5 g/dL (32.0-36.0) 02/13/23 RDW Standard Deviation 42.5 fL (36.4-46.3) 02/13/23 RDW Coefficient of Variation 12.1 % (11.5-14.5) 02/13/23 Plt Count 275 K/uL (130-400) 02/13/23 MPV 9.6 fL (9.4-12.4) 02/13/23 Neutrophils (%) (Auto) 75.1 % 02/13/23 Lymphocytes (%) (Auto) 13.0 % 02/13/23 Monocytes # (Auto) 0.80 K/uL (0.11-0.59) H 02/13/23 Eosinophils # (Auto) 0.27 K/uL (0.00-0.50) 02/13/23 Immature Granulocyte % (Auto) 0.5 % 02/13/23 Neutrophils # (Auto) 7.21 K/uL (1.40-6.50) H 02/13/23 Lymphocytes # (Auto) 1.25 K/uL (1.20-3.40) 02/13/23 Monocytes # (Auto) 0.80 K/uL (0.11-0.59) H 02/13/23 Eosinophils # (Auto) 0.27 K/uL (0.00-0.50) 02/13/23 Basophils # (Auto) 0.03 K/uL (0.00-0.20) 02/13/23 Immature Granulocyte # (Auto) 0.05 K/uL (0.01-0.20) 3 Na 134 mmol/L (136-145) L 02/13/23 K 3.3 mmol/L (3.5-5.1) L 02/13/23 Cl 99 mmol/L (98-107) 02/13/23 CO2 26 mmol/L (21-32) 02/13/23 Anion Gap 9 (3-11) 02/13/23 BUN 14 mg/dl (6-23) 02/13/23 Creatinine 0.77 mg/dl (0.6-1.4) 02/13/23 Estimated GFR ( Amer) 107.3 ml/min 02/13/23 Estimated GFR (Non-Af Amer) 92.6 ml/min 02/13/23 BUN/Creatinine Ratio 18.2 (10-20) 02/13/23 Glu 99 mg/dl (70-99(Fasting)) 02/13/23 Ca 8.3 mg/dl (8.6-10.3) L 02/13/23 Phosphorus Level 3.0 mg/dl (2.5-4.9) 02/13/23 Total Bilirubin 0.8 mg/dl (0.2-1.0) 02/13/23 AST 13 U/L (13-39) 02/13/23 ALT 8 U/L (7-52) 02/13/23 Alkaline Phosphatase 75 U/L (34-104) 02/13/23 TP 5.5 gm/dl (6.0-8.3) L 02/13/23 Albumin 3.1 gm/dl (3.4-5.0) L 02/13/23 Globulin 2.4 gm/dl (2.5-4.0) L 02/13/23 Albumin/Globulin Ratio 1.3 (0.9-2) 02/13/23 Mg 2.0 mg/dl (1.7-2.4) 02/13/23 03:43 Calcium Level 8.3 mg/dl (8.6-10.3) L 02/13/23 03:43 Prothromb Time International Ratio 1.0 (0.9-1.1) 02/13/23 03:4 3 Antoine Test Pass 02/13/23 08:22 Microbiology 02/12/23 13:40 Gram Stain - Final Sputum,Vent Suction Sputum Culture - Preliminary Corynebacterium species Diagnostic Findings (Past 24 Hours) Chest X-Ray 02/12/23 08:42 SINGLE VIEW CHEST CLINICAL HISTORY: Respiratory failure. Intubation. FINDINGS: An AP, portable, upright chest radiograph is compared to study dated 02/08/2023. An endotracheal tube has been placed. The tip projects approximately 3.5 cm above the josselyn. An enteric tube has been placed. The tip projects below the diaphragm over the gastric fundus. The heart is enlarged noting atherosclerotic calcification of the thoracic aorta. Chronic interstitial thickening is similar to previous. There is bibasilar scarring/atelectasis. The lungs and pleural spaces are otherwise clear. No pneumothorax is seen. The skeletal structures are osteopenic. The bony thorax is grossly intact. Fusion hardware is noted at the thoracolumbar junction. IMPRESSION: 1. Endotracheal and enteric tubes have been placed as above. 2. Cardiomegaly with no acute cardiopulmonary abnormality identified. ACT 112: Negative or not required by law. Electronically signed by: Brian Mcgregor M.D. 02/12/2023 9:25 AM I & O Totals 24 Hours 02/12/23 02/13/23 02/14/23 06:59 06:59 06:59 Intake Total 3505.857 / 3505.857 3002.553 / 3002.553 32.833 / 32.833 Output Total 2325 / 2325 1490 / 1490 Balance 1180.857 / 3730.890 2037.553 / 1512.553 32.833 / 32.833 Cumulative 02/01/23 11:04 thru 02/13/23 08:00 Intake Total 15070.118 Output Total 96538 Balance 3841.118 RT Ventilator Mngmt (Last Documented) Ventilator Ordered Settings Ventilator Support Mode Assist Control 02/13/23 03:15 Respiratory Rate 15 02/13/23 07:00 Ventilator Tidal Volume 450 02/13/23 03:15 Setting Minute Ventilation 10.5 02/13/23 03:15 Positive End Expiratory 5 02/13/23 03:15 Pressure Fraction of Inspired Oxygen 30 02/13/23 03:15 Ventilator - PT Measurements Respiratory Rate 15 Exhaled Tidal Volume 574 Minute Ventilation 10.5 Peak Inspiratory Airway 20 Pressure Plateau Pressure 14 Respiratory Cycle Inspiratory: 1:1.9 Expiratory Ratio Inspiratory Phase Time 1.0 End-Tidal CO2 33 Static Lung Compliance 50.00 Dynamic Lung Compliance 38.27 Normal Static Lung Compliance 48.00 Patient Measurements Comment Unable to obtain Pplat due to patient being agitated and desynchronous with vent at this time. Coding Level of Care Code 75888 CRITICAL CARE 1ST 30-74M Diagnoses Delirium tremens F10.931 Myelopathy concurrent with and due to spinal stenosis of thoracic region M48.04; G99.2 HTN (hypertension) I10 HLD (hyperlipidemia) E78.5
[2023-02-13] MEDS: PANTOprazole 40 MG in SYRINGE 0 ML IV SCH (09:58)
[2023-02-13] MEDS: MULTI VIT W/MINERALS LIQUID 15 ML UDP NG SCH (10:01)
[2023-02-13] MEDS: FOLIC ACID 1 MG TAB PO SCH (10:01)
[2023-02-13] MEDS: DOCUSATE SODIUM SYRUP 100 MG/10 ML UDC PO SCH (10:01)
[2023-02-13] MEDS: THIAMINE HCL 100 MG TAB PO SCH (10:02)
[2023-02-13] MEDS ORDERED: PHENobarbital PO Alcohol Withdrawal PO STA (10:34)
[2023-02-13] MEDS: lisinopril 40 MG TAB PO SCH (10:44)
[2023-02-13] MEDS: busPIRone 15 MG TAB PO SCH ×3 (10:44→20:33)
[2023-02-13] MEDS: ENOXAPARIN INJ 40 MG/0.4 ML SYR SQ SCH (11:51)
[2023-02-13] MEDS: POLYETHYLENE (MIRALAX) 17 GM PACK PO SCH (11:54)
[2023-02-13] MEDS: PLASMA-LYTE A 1,000 ML IV SCH (12:01)
[2023-02-13] MEDS: cefTRIAXone SODIUM 2,000 MG in DEXTROSE 5% 50 ML IV SCH (13:03)
[2023-02-13] MEDS ORDERED: SODIUM CHLORIDE 0.9% 1,000 ML IV ONE (13:52)
[2023-02-13] MEDS ORDERED: PHENobarbital sodium 130 MG/ML VIAL IV SCH (15:00)
--- NOTE | 2023-02-13 15:17 | Hospitalist Progress Note ---
Date of Service February 13, 2023 Assessment & Plan (1) Thoracic radiculopathy: Plan: Patient presenting for evaluation of back pain, right foot drop, bilateral leg weakness and numbness. Outpatient thoracic MRI from 01/27 -at T10/11, there is a broad-based midline disc protrusion measuring 4 mm in diameter causing moderate flattening of the cord. There is severe spinal canal stenosis secondary to the protrusion and bilateral facet osteoarthritis. Myelopathy concurrent with and due to spinal stenosis of thoracic region --Lumbar spine MRI:Multilevel degenerative changes are seen. There is up to severe left and moderate right bilateral neural foraminal stenosis. Mild canal stenosis is seen. Partially visualized, there appears to be significant canal or neural foraminal stenosis in the lower thoracic spine most prominently at T10-T11. If there is concern for spinal cord impingement, dedicated thoracic spine MRI can be performed. S/P Decompression and fusion T10-T12 by on 02/03/23 Postoperative acute blood loss Activity and wound care orders as per ortho Pain control with bowel regimen Continue PT/OT as able Appreciate orthopedics help Monitor CBC, currently no indications for blood transfusion Fall precautions Needs follow-up with orthopedics upon discharge (2) Alcohol withdrawal: Plan: Acute metabolic encephalopathy --CT Head:Motion degraded exam without acute intracranial abnormality. Alcohol withdrawal DTs Ex- reported to nursing that patient drinks alcohol heavily per record S/P Intubation 02/12/23 Was on gabapentin protocol Continue thiamine, folic acid Ativan as needed IV fluids as needed Precedex drip discontinued Started on phenobarbital Continue tube feeds Appreciate excel analyst help Continue tube feeds Blood cultures negative to date Sputum cultures showed cardiomegaly suspicious Empirically on Rocephin Suspected sleep apnea Supplemental oxygen as needed Needs sleep study as outpatient (3) Ileus: Plan: --CT ABD:Multiple gas-distended loops of large bowel are seen. No small bowel obstruction is seen. Resolved, tolerating regular diet, bowel regimen resumed Monitor (4) HTN (hypertension): Plan: Chronic, stable Hold metoprolol and lisinopril as BP low Monitor BP (5) Anxiety: (6) Depression: Plan: Chronic, stable Continue home meds (7) Allergic rhinitis: Plan: Follows with allergy and receives immunotherapy injections. Discussed with Lizzy Child PA-C -- due for injection on 02/11. Office will not transport serum to hospital for administration and do not recommend injection while acutely ill. Outpatient follow up. (8) HLD (hyperlipidemia): Plan: Chronic, stable Continue statin DVT Px: Lovenox SQ Admission and Anticipated Discharge Date Admission Date: February 01, 2023 Subjective Patient is seen and examined at bedside Remains Intubated on Propofol/Fentanyl for sedation Precedex discontinued Started on Phenobarbital Blood pressure is low Review of Systems Review of Systems: All systems reviewed & are unremarkable except as noted in Subjective Physical Exam Physical Exam: Physical Exam: Vitals signs as noted above General Appearance:Moderately built and nourished, no apparent distress, +Intubated Head: normocephalic, Atraumatic Eyes: normal inspection, EOMI Neck: supple, Trachea midline Respiratory/Chest: Normal breath sounds, CTA, No accessory muscle use Cardiovascular: S1, S2, No murmur Abdomen/GI:Soft, Non tender, Bowel sounds present Back: Surgical site Extremities/Musculoskeletal:normal inspection, no edema Neurologic/Psych:Sedated and Intubated Skin: normal color, warm Results & Data Results & Data Vital Signs (Past 12 Hours) Vital Signs Temp Pulse Resp BP Pulse Ox O2 Del Method FiO2 02/13/23 11:00 91 H 15 96 30 02/13/23 07:30 89 15 96 30 02/13/23 11:43 94 H 15 91/60 L 02/13/23 10:00 37.4 C 88 15 96 Mechanical Vent 0.3 02/13/23 10:00 105/78 02/13/23 09:30 37.3 C 85 15 97 02/13/23 09:30 100/62 02/13/23 09:00 37.3 C 86 15 96 Mechanical Vent 0.3 02/13/23 09:00 100/67 02/13/23 08:30 37.2 C 88 15 96 02/13/23 08:30 106/72 02/13/23 08:00 37.2 C 89 15 96 02/13/23 08:00 116/65 02/13/23 07:30 37.3 C 87 15 96 02/13/23 07:30 110/66 02/13/23 09:00 Mechanical Vent 0.3 02/13/23 07:00 37.3 C 91 H 15 96 02/13/23 07:00 124/74 02/13/23 06:46 138/81 10/09/23 06:46 37.3 C 95 H 15 97 02/13/23 06:30 98 H 18 02/13/23 06:00 37.4 C 85 15 97 02/13/23 06:00 138/77 02/13/23 05:30 37.4 C 89 15 97 02/13/23 05:30 126/77 02/13/23 05:00 37.4 C 90 15 97 02/13/23 05:00 118/74 02/13/23 04:30 37.4 C 90 15 96 02/13/23 04:30 124/78 02/13/23 04:00 37.5 C 91 H 14 96 02/13/23 04:00 112/68 02/13/23 03:30 37.5 C 96 H 15 95 02/13/23 03:30 115/67 02/13/23 03:15 105 H 25 H 96 30 Laboratory Results Short CBC 02/13/23 Range/Units 03:43 WBC 9.61 (4.8-10.8) K/ul Hgb 11.7 L (14.0-18.0) g/dl Hct 33.0 L (42.0-52.0) % Plt Count 275 (130-400) K/uL BMP 02/13/23 03:43 Sodium 134 L Potassium 3.3 L Chloride 99 Carbon Dioxide 26 BUN 14 Creatinine 0.77 Glucose 99 Calcium 8.3 L Liver Function 02/13/23 Range/Units 03:43 Total Bilirubin 0.8 (0.2-1.0) mg/dl AST 13 (13-39) U/L ALT 8 (7-52) U/L Alkaline Phosphatase 75 (34-104) U/L Albumin 3.1 L (3.4-5.0) gm/dl
[2023-02-13] MEDS: PHENobarbital sodium 130 MG/ML VIAL IV SCH ×2 (15:46→18:38)
[2023-02-13] MEDS: LIDOCAINE 5% 1 PATCH TD SCH (20:33)
[2023-02-13] MEDS: traZODone HCL 100 MG TAB PO SCH (20:33)
[2023-02-13] MEDS: ATORVASTATIN 40 MG TAB PO SCH (20:33)
[2023-02-13] MEDS: DOCUSATE SODIUM/SENNA 50/8.6MG TAB PO SCH (20:33)
[2023-02-14] MEDS: fentaNYL BOLUS from BAG IV PRN ×2 (01:00→03:58)
[2023-02-14] MEDS: PROPOFOL BOLUS FROM BAG IV PRN ×4 (01:05→03:44)
[2023-02-14] MEDS: TUBE FEEDING WATER FLUSH OG SCH ×4 (01:11→13:15)
[2023-02-14] MEDS: PLASMA-LYTE A 1,000 ML IV SCH (01:15)
[2023-02-14] MEDS ORDERED: PLASMA-LYTE A 500 ML IV ONE (02:19)
[2023-02-14 04:22] LABS: Basophils # (auto) 0.02 K/uL (0.00-0.20); Basophils % (auto) 0.3 %; Eosinophils # (auto) 0.34 K/uL (0.00-0.50); Eosinophils % (auto) 4.8 %; Hematocrit (blood only) 32.5 % (42.0-52.0); Hemoglobin 11.4 g/dl (14.0-18.0); Immature Granulocytes # (auto) 0.05 K/uL (0.01-0.20); Immature Granulocytes % (auto) 0.7 %; Lymphocytes # (auto) 0.94 K/uL (1.20-3.40); Lymphocytes % (auto) 13.4 %; Mean Corpuscular Hemoglobin 34.7 pg (25.0-34.0); Mean Corpuscular Hgb Conc 35.1 g/dL (32.0-36.0); Mean Corpuscular Volume 98.8 fL (80.0-100.0); Mean Platelet Volume 9.7 fL (9.4-12.4); Monocytes # (auto) 0.68 K/uL (0.11-0.59); Monocytes % (auto) 9.7 %; Neutrophils # (auto) 4.99 K/uL (1.40-6.50); Neutrophils % (auto) 71.1 %; Platelet Count 245 K/uL (130-400); RDW Coefficient of Variation 12.7 % (11.5-14.5); RDW Standard Deviation 46.5 fL (36.4-46.3); Red Blood Count 3.29 M/uL (4.70-6.10); White Blood Count 7.02 K/ul (4.8-10.8)
[2023-02-14 05:16] LABS: BUN Creatinine Ratio 18.6 (10-20); Calcium 8.1 mg/dl (8.6-10.3); Creatinine Clr Calc Pharmacy 101.1 ml/min; Est GFR (African American) 111.6 ml/min; Est GFR (Non-African American) 96.3 ml/min; Magnesium 1.9 mg/dl (1.7-2.4); Phosphorus 2.9 mg/dl (2.5-4.9); Potassium 4.1 mmol/L (3.5-5.1)
[2023-02-14] MEDS: ACETAMINOPHEN 1,000 MG/100 ML VIAL IV SCH (05:16)
[2023-02-14] MEDS: PEPTAMEN INTENSE VHP 1.0 CAL 1,000 ML BAG OG SCH (05:22)
[2023-02-14] MEDS: propofoL 1,000 MG/100 ML VIAL IV SCH ×2 (05:42→14:40)
[2023-02-14] MEDS ORDERED: chlordiazePOXIDE HCl 5 MG CAP PO SCH (06:00)
[2023-02-14] MEDS: MAGNESIUM SULFATE / D5W 1 GM/100 ML BAG IV SCH ×2 (06:28→08:52)
[2023-02-14] MEDS: ICU ELECTROLYTE REPLACEMENT PROTOCOL SCH ×2 (06:41→17:27)
[2023-02-14] MEDS: DOCUSATE SODIUM SYRUP 100 MG/10 ML UDC PO SCH (07:21)
[2023-02-14] MEDS: busPIRone 15 MG TAB PO SCH ×3 (07:21→19:39)
[2023-02-14] MEDS: THIAMINE HCL 100 MG TAB PO SCH (07:21)
[2023-02-14] MEDS: POLYETHYLENE (MIRALAX) 17 GM PACK PO SCH (07:22)
[2023-02-14] MEDS: MULTI VIT W/MINERALS LIQUID 15 ML UDP NG SCH (07:22)
[2023-02-14] MEDS: FOLIC ACID 1 MG TAB PO SCH (07:22)
[2023-02-14] MEDS ORDERED: PHENobarbitaL 30 MG TAB PO ONE (07:36)
[2023-02-14] MEDS: PANTOprazole 40 MG in SYRINGE 0 ML IV SCH (07:43)
[2023-02-14] MEDS: PHENobarbitaL 30 MG TAB PO SCH ×2 (07:57→19:39)
[2023-02-14] MEDS ORDERED: PHENobarbitaL 30 MG TAB PO SCH (09:00)
--- NOTE | 2023-02-14 10:37 | Critical Care Progress Note ---
Date of Service February 14, 2023 Assessment & Plan (1) Delirium tremens: (2) Myelopathy concurrent with and due to spinal stenosis of thoracic region: (3) HTN (hypertension): (4) HLD (hyperlipidemia): Plan Reason Critically Ill: 67-year-old male presents to the ICU following emergent spinal decompression with fusion of T10-T12 and undergoing treatment for alcohol withdrawal now with refractory DTs requiring Precedex drip. Neuro - Delirium tremens-alcohol history previously confirmed with the patient's , unsure of actual amount of consumption -Continue folic acid, thiamine -CT head 02/09 negative for acute intracranial abnormalities -Loaded with phenobarb, transition to taper Spinal stenosis/thoracic radiculopathy -status post T10-T12 spinal decompression with fusion 02/03/2023. Management per surgical team Cardiac - HTN -On metoprolol Respiratory - Intubated due to severe acute encephalopathy and agitated delirium, plan extubation today -- Probable sleep apnea Will need outpatient polysomnography O2 supplementation to keep O2 saturation between 90-92% GI - Start tube feeding as we wean towards extubation RENAL/LYTES - Creatinine within normal limits, monitor routine BMPs replete electrolytes as indicated - Foleystrict I's and O's ENDO - No history of diabetes or thyroid disease, ICU hyperglycemic protocol HEME - H&H stable, monitor routine CBCs ID - -- New onset fever Afebrile since 4 PM No new oxygen requirement UA was unremarkable 02/11/2023 Chest x-ray does not show any new infiltrate no white count Sputum results Corynebacterium not atypical infectious organism we will continue to follow -Placed on Rocephin on 02/12 continue today consider transition to Unasyn as this could represent aspiration and chronic alcohol consumption --Prophylaxis VTE: Lovenox GI: Pantoprazole: Continue as this is a home medication Lines: Peripheral Diet: Tube feedings I have personally spent 40 minutes of critical care time in the direct management of this patient. This is a life/limb threatening event. This includes time spent evaluating patient, direct bedside care, chart review, placing orders, interpretation of diagnostic studies, discussion with consultants, patient, and family members, as well as other required patient management activities. This time is exclusive of all separately billable procedures, and teaching time and separate from and in addition to any other critical care service time. Clinical update 1650 patient increasing delirium, given additional doses of phenobarbital start Precedex as well. Patient self discontinued Devi. Close observation to see if there is urinary retention and if there is such we will place a subsequent Devi. Admission and Anticipated Discharge Date Admission Date: February 01, 2023 Subjective No overnight events Review of Systems Review of Systems: Unobtainable due to endotracheal tube Physical Exam Physical Exam: General: Sedated. nontoxic. Skin: Warm, dry, Head: Atraumatic Ears, nose, mouth and throat: airway obscured by endotracheal tube Cardiovascular: Normal peripheral perfusion Respiratory: Ventilator settings reviewed Gastrointestinal: Non distended Musculoskeletal: No deformity Results & Data Results & Data Vital Signs (Past 12 Hours) Vital Signs Temp Pulse Resp BP Pulse Ox FiO2 02/14/23 10:15 142/94 H 02/14/23 10:15 37.5 C 104 H 16 93 02/14/23 10:01 37.5 C 105 H 14 91 02/14/23 10:00 37.4 C 106 H 14 90 02/14/23 09:47 144/91 H 02/14/23 09:47 37.4 C 104 H 17 92 02/14/23 09:31 163/104 H 02/14/23 09:31 37.4 C 102 H 29 H 88 L 02/14/23 09:30 37.4 C 105 H 17 90 02/14/23 09:15 138/100 02/14/23 09:15 37.4 C 102 H 18 95 02/14/23 09:00 37.2 C 111 H 17 96 02/14/23 09:00 149/121 H 02/14/23 08:45 156/92 H 02/14/23 08:45 37.1 C 103 H 15 96 02/14/23 08:30 36.9 C 99 H 13 97 02/14/23 08:30 139/78 02/14/23 08:16 36.8 C 107 H 13 97 02/14/23 08:16 144/95 H 02/14/23 08:00 36.9 C 86 16 99 02/14/23 08:00 119/81 02/14/23 07:45 110/65 02/14/23 07:45 37.0 C 72 15 98 02/14/23 07:30 37.0 C 68 15 99 02/14/23 07:30 82/52 L 02/14/23 07:15 37.0 C 67 15 98 02/14/23 07:15 90/50 L 02/14/23 07:00 37.1 C 68 15 98 02/14/23 07:00 87/51 L 02/14/23 06:45 85/50 L 02/14/23 06:45 37.1 C 69 15 99 02/14/23 06:30 37.1 C 69 15 98 02/14/23 06:30 88/58 L 02/14/23 06:15 71/47 L 02/14/23 06:15 37.0 C 70 15 99 02/14/23 06:06 92/59 L 02/14/23 06:06 37.0 C 76 16 99 02/14/23 06:00 37.0 C 71 15 99 02/14/23 06:00 75/45 L 02/14/23 05:45 85/54 L 02/14/23 05:45 37.0 C 71 15 100 02/14/23 05:30 37.0 C 71 15 100 02/14/23 05:30 76/46 L 02/14/23 05:15 86/52 L 02/14/23 05:15 37.0 C 72 15 99 02/14/23 05:00 37.0 C 73 15 100 02/14/23 05:00 88/55 L 02/14/23 04:45 82/53 L 02/14/23 04:45 37.0 C 72 15 99 02/14/23 08:00 30 02/14/23 07:46 67 15 98 30 02/14/23 04:00 30 02/14/23 02:55 79 15 98 30 02/14/23 02:02 37.2 C 76 15 98 02/14/23 02:02 83/48 L 02/14/23 02:00 37.2 C 78 15 98 02/14/23 02:00 71/42 L 02/14/23 01:45 37.2 C 78 15 98 02/14/23 01:45 73/44 L 02/14/23 01:30 37.1 C 81 15 97 02/14/23 01:30 85/49 L 02/14/23 01:15 37.1 C 84 15 97 02/14/23 01:15 92/51 L 02/14/23 01:00 36.9 C 90 15 96 02/14/23 01:00 113/68 02/14/23 00:45 36.8 C 88 14 97 02/14/23 00:45 117/66 02/14/23 00:30 36.9 C 96 H 15 97 02/14/23 00:30 111/64 02/14/23 00:15 37.1 C 83 16 98 02/14/23 00:15 109/61 02/14/23 00:07 37.1 C 86 17 97 02/14/23 00:00 37.1 C 76 15 98 02/14/23 00:00 72/48 L 02/13/23 23:50 37.1 C 76 14 98 02/13/23 23:50 84/52 L 02/13/23 23:45 37.1 C 76 15 98 02/13/23 23:45 80/53 L 02/13/23 23:30 37.1 C 77 15 98 02/13/23 23:30 84/51 L 02/13/23 23:15 37.1 C 74 15 98 02/13/23 23:15 89/51 L 02/13/23 23:00 37.1 C 76 15 98 02/13/23 23:00 91/57 L 02/13/23 22:45 37.2 C 76 15 98 02/13/23 22:45 92/53 L 02/14/23 00:00 30 02/14/23 00:00 89 02/13/23 23:00 75 15 98 30 Critical Care Results & Data Vital Signs (Past 12 Hours) Vital Signs Temp Pulse Resp BP Pulse Ox FiO2 02/14/23 10:15 142/94 H 02/14/23 10:15 37.5 C 104 H 16 93 02/14/23 10:01 37.5 C 105 H 14 91 02/14/23 10:00 37.4 C 106 H 14 90 02/14/23 09:47 144/91 H 02/14/23 09:47 37.4 C 104 H 17 92 02/14/23 09:31 163/104 H 02/14/23 09:31 37.4 C 102 H 29 H 88 L 02/14/23 09:30 37.4 C 105 H 17 90 02/14/23 09:15 138/100 02/14/23 09:15 37.4 C 102 H 18 95 02/14/23 09:00 37.2 C 111 H 17 96 02/14/23 09:00 149/121 H 02/14/23 08:45 156/92 H 02/14/23 08:45 37.1 C 103 H 15 96 02/14/23 08:30 36.9 C 99 H 13 97 02/14/23 08:30 139/78 02/14/23 08:16 36.8 C 107 H 13 97 02/14/23 08:16 144/95 H 02/14/23 08:00 36.9 C 86 16 99 02/14/23 08:00 119/81 02/14/23 07:45 110/65 02/14/23 07:45 37.0 C 72 15 98 02/14/23 07:30 37.0 C 68 15 99 02/14/23 07:30 82/52 L 02/14/23 07:15 37.0 C 67 15 98 02/14/23 07:15 90/50 L 02/14/23 07:00 37.1 C 68 15 98 02/14/23 07:00 87/51 L 02/14/23 06:45 85/50 L 02/14/23 06:45 37.1 C 69 15 99 02/14/23 06:30 37.1 C 69 15 98 02/14/23 06:30 88/58 L 02/14/23 06:15 71/47 L 02/14/23 06:15 37.0 C 70 15 99 02/14/23 06:06 92/59 L 02/14/23 06:06 37.0 C 76 16 99 02/14/23 06:00 37.0 C 71 15 99 02/14/23 06:00 75/45 L 02/14/23 05:45 85/54 L 02/14/23 05:45 37.0 C 71 15 100 02/14/23 05:30 37.0 C 71 15 100 02/14/23 05:30 76/46 L 02/14/23 05:15 86/52 L 02/14/23 05:15 37.0 C 72 15 99 02/14/23 05:00 37.0 C 73 15 100 02/14/23 05:00 88/55 L 02/14/23 04:45 82/53 L 02/14/23 04:45 37.0 C 72 15 99 02/14/23 08:00 30 02/14/23 07:46 67 15 98 30 02/14/23 04:00 30 02/14/23 02:55 79 15 98 30 02/14/23 02:02 37.2 C 76 15 98 02/14/23 02:02 83/48 L 02/14/23 02:00 37.2 C 78 15 98 02/14/23 02:00 71/42 L 02/14/23 01:45 37.2 C 78 15 98 02/14/23 01:45 73/44 L 02/14/23 01:30 37.1 C 81 15 97 02/14/23 01:30 85/49 L 02/14/23 01:15 37.1 C 84 15 97 02/14/23 01:15 92/51 L 02/14/23 01:00 36.9 C 90 15 96 02/14/23 01:00 113/68 02/14/23 00:45 36.8 C 88 14 97 02/14/23 00:45 117/66 02/14/23 00:30 36.9 C 96 H 15 97 02/14/23 00:30 111/64 02/14/23 00:15 37.1 C 83 16 98 02/14/23 00:15 109/61 02/14/23 00:07 37.1 C 86 17 97 02/14/23 00:00 37.1 C 76 15 98 02/14/23 00:00 72/48 L 02/13/23 23:50 37.1 C 76 14 98 02/13/23 23:50 84/52 L 02/13/23 23:45 37.1 C 76 15 98 02/13/23 23:45 80/53 L 02/13/23 23:30 37.1 C 77 15 98 02/13/23 23:30 84/51 L 02/13/23 23:15 37.1 C 74 15 98 02/13/23 23:15 89/51 L 02/13/23 23:00 37.1 C 76 15 98 02/13/23 23:00 91/57 L 02/13/23 22:45 37.2 C 76 15 98 02/13/23 22:45 92/53 L 02/14/23 00:00 30 02/14/23 00:00 89 02/13/23 23:00 75 15 98 30 Lab & Micro Results (Past 24 Hours) RBC 3.29 M/uL (4.70-6.10) L 02/14/23 WBC 7.02 K/ul (4.8-10.8) 02/14/23 Hgb 11.4 g/dl (14.0-18.0) L 02/14/23 Hct 32.5 % (42.0-52.0) L 02/14/23 MCV 98.8 fL (80.0-100.0) 02/14/23 MCH 34.7 pg (25.0-34.0) H 02/14/23 MCHC 35.1 g/dL (32.0-36.0) 02/14/23 RDW Standard Deviation 46.5 fL (36.4-46.3) H 02/14/23 RDW Coefficient of Variation 12.7 % (11.5-14.5) 02/14/23 Plt Count 245 K/uL (130-400) 02/14/23 MPV 9.7 fL (9.4-12.4) 02/14/23 Neutrophils (%) (Auto) 71.1 % 02/14/23 Lymphocytes (%) (Auto) 13.4 % 02/14/23 Monocytes # (Auto) 0.68 K/uL (0.11-0.59) H 02/14/23 Eosinophils # (Auto) 0.34 K/uL (0.00-0.50) 02/14/23 Immature Granulocyte % (Auto) 0.7 % 02/14/23 Neutrophils # (Auto) 4.99 K/uL (1.40-6.50) 02/14/23 Lymphocytes # (Auto) 0.94 K/uL (1.20-3.40) L 02/14/23 Monocytes # (Auto) 0.68 K/uL (0.11-0.59) H 02/14/23 Eosinophils # (Auto) 0.34 K/uL (0.00-0.50) 02/14/23 Basophils # (Auto) 0.02 K/uL (0.00-0.20) 02/14/23 Immature Granulocyte # (Auto) 0.05 K/uL (0.01-0.20) 3 Na 134 mmol/L (136-145) L 02/14/23 K 4.1 mmol/L (3.5-5.1) 02/14/23 Cl 104 mmol/L (98-107) 02/14/23 CO2 26 mmol/L (21-32) 02/14/23 Anion Gap 4 (3-11) 02/14/23 BUN 13 mg/dl (6-23) 02/14/23 Creatinine 0.70 mg/dl (0.6-1.4) 02/14/23 Estimated GFR ( Amer) 111.6 ml/min 02/14/23 Estimated GFR (Non-Af Amer) 96.3 ml/min 02/14/23 BUN/Creatinine Ratio 18.6 (10-20) 02/14/23 Glu 100 mg/dl (70-99(Fasting)) H 02/14/23 Ca 8.1 mg/dl (8.6-10.3) L 02/14/23 Phosphorus Level 2.9 mg/dl (2.5-4.9) 02/14/23 Mg 1.9 mg/dl (1.7-2.4) 02/14/23 03:31 Calcium Level 8.1 mg/dl (8.6-10.3) L 02/14/23 03:31 Microbiology 02/12/23 13:40 Gram Stain - Final Sputum,Vent Suction Sputum Culture - Final Corynebacterium species 02/12/23 13:00 Aerobic Blood Culture - Preliminary Blood No growth in Aerobic bottle after 24 hours. Anaerobic Blood Culture - Preliminary No growth in Anaerobic bottle after 24 hours. 02/12/23 13:10 Aerobic Blood Culture - Preliminary Blood No growth in Aerobic bottle after 24 hours. Anaerobic Blood Culture - Preliminary No growth in Anaerobic bottle after 24 hours. I & O Totals 24 Hours 02/13/23 02/14/23 02/15/23 06:59 06:59 06:59 Intake Total 3002.553 / 3002.553 6031.3905 / 6031.3905 146.657 / 146.657 Output Total 1490 / 1490 2125 / 2125 Balance 1512.553 / 6538.625 3569.3905 / 3906.3905 146.657 / 146.657 Cumulative 02/01/23 11:04 thru 02/14/23 08:28 Intake Total 26296.3325 Output Total 94000 Balance 7861.3325 RT Ventilator Mngmt (Last Documented) Ventilator Ordered Settings Ventilator Support Mode Assist Control 02/14/23 08:00 Respiratory Rate 16 02/14/23 10:15 Ventilator Tidal Volume 450 02/14/23 08:00 Setting Minute Ventilation 6.7 02/14/23 07:46 Positive End Expiratory 5 02/14/23 08:00 Pressure Fraction of Inspired Oxygen 30 02/14/23 08:00 Ventilator - PT Measurements Respiratory Rate 16 Exhaled Tidal Volume 450 Minute Ventilation 6.7 Peak Inspiratory Airway 17 Pressure Plateau Pressure 13.6 Respiratory Cycle Inspiratory: 1:3.0 Expiratory Ratio Inspiratory Phase Time 1.0 End-Tidal CO2 39 Static Lung Compliance 52.33 Dynamic Lung Compliance 37.50 Normal Static Lung Compliance 48.00 Patient Measurements Comment Unable to obtain Pplat due to patient being agitated and desynchronous with vent at this time. Coding Level of Care Code 36040 CRITICAL CARE 1ST 30-74M Diagnoses Delirium tremens F10.931 Myelopathy concurrent with and due to spinal stenosis of thoracic region M48.04; G99.2 HTN (hypertension) I10 HLD (hyperlipidemia) E78.5
[2023-02-14] MEDS: lisinopril 40 MG TAB PO SCH (13:14)
[2023-02-14] MEDS: fentaNYL citrate 2,500 MCG/250 ML BAG IV SCH (13:14)
[2023-02-14] MEDS: ENOXAPARIN INJ 40 MG/0.4 ML SYR SQ SCH (13:30)
[2023-02-14] MEDS: PHENobarbital sodium 65 MG/ML VIAL IV PRN ×2 (14:06→20:53)
[2023-02-14] MEDS: cefTRIAXone SODIUM 2,000 MG in DEXTROSE 5% 50 ML IV SCH (14:35)
--- NOTE | 2023-02-14 15:51 | Electrocardiogram Report ---
Test Reason : Blood Pressure : / mmHG Vent. Rate : 069 BPM Atrial Rate : 069 BPM P-R Int : 170 ms QRS Dur : 084 ms QT Int : 418 ms P-R-T Axes : 040 -26 031 degrees QTc Int : 447 ms Normal sinus rhythm Normal ECG When compared with ECG of 01-FEB-2023 16:16, QRS axis Shifted left Confirmed by Keith Butterfield ([id number]) on 02/14/2023 3:51:06 PM Referred By: REFERRED SELF Confirmed By:Keith Butterfield
[2023-02-14] MEDS ORDERED: PHENobarbital sodium 65 MG/ML VIAL IV STA ×3 (16:12→22:28)
--- NOTE | 2023-02-14 16:27 | Hospitalist Progress Note ---
Date of Service February 14, 2023 Assessment & Plan (1) Thoracic radiculopathy: Plan: Patient presenting for evaluation of back pain, right foot drop, bilateral leg weakness and numbness. Outpatient thoracic MRI from 01/27 -at T10/11, there is a broad-based midline disc protrusion measuring 4 mm in diameter causing moderate flattening of the cord. There is severe spinal canal stenosis secondary to the protrusion and bilateral facet osteoarthritis. Myelopathy concurrent with and due to spinal stenosis of thoracic region --Lumbar spine MRI:Multilevel degenerative changes are seen. There is up to severe left and moderate right bilateral neural foraminal stenosis. Mild canal stenosis is seen. Partially visualized, there appears to be significant canal or neural foraminal stenosis in the lower thoracic spine most prominently at T10-T11. If there is concern for spinal cord impingement, dedicated thoracic spine MRI can be performed. S/P Decompression and fusion T10-T12 by on 02/03/23 Postoperative acute blood loss Activity and wound care orders as per ortho Pain control with bowel regimen Continue PT/OT as able Appreciate orthopedics help Monitor CBC, currently no indications for blood transfusion Fall precautions Needs follow-up with orthopedics upon discharge (2) Alcohol withdrawal: Plan: Acute metabolic encephalopathy --CT Head:Motion degraded exam without acute intracranial abnormality. Alcohol withdrawal DTs Ex- reported to nursing that patient drinks alcohol heavily per record S/P Intubation 02/12/23 S/P Extubation on 02/14/23 --Blood culture negative to date --Sputum cultures showed Corynebacterium species Was on gabapentin protocol Continue thiamine, folic acid Ativan as needed IV fluids as needed Precedex drip discontinued Taper off of phenobarbital as able Appreciate power grader operator help Empirically on Rocephin Continue to monitor in ICU Suspected sleep apnea Supplemental oxygen as needed Needs sleep study as outpatient (3) Ileus: Plan: --CT ABD:Multiple gas-distended loops of large bowel are seen. No small bowel o bstruction is seen. Resolved, tolerating regular diet, bowel regimen resumed Monitor (4) HTN (hypertension): Plan: Chronic, stable Resumed lisinopril Plan to resume metoprolol as able Monitor BP (5) Anxiety: (6) Depression: Plan: Chronic, stable Continue home meds (7) Allergic rhinitis: Plan: Follows with allergy and receives immunotherapy injections. Discussed with Lizzy Child PA-C -- due for injection on 02/11. Office will not transport serum to hospital for administration and do not recommend injection while acutely ill. Outpatient follow up. (8) HLD (hyperlipidemia): Plan: Chronic, stable Continue statin DVT Px: Lovenox SQ Admission and Anticipated Discharge Date Admission Date: February 01, 2023 Subjective Patient is seen and examined at bedside Extubated this morning Patient drowsy during my encounter, unable to provide any history Tachycardic on monitor Discussed with patient's at bedside Review of Systems Review of Systems: Other Physical Exam Physical Exam: Physical Exam: Vitals signs as noted above General Appearance:Moderately built and nourished, no apparent distress Head: normocephalic, Atraumatic Eyes: normal inspection, EOMI Neck: supple, Trachea midline Respiratory/Chest: Normal breath sounds, CTA, No accessory muscle use Cardiovascular: S1, S2, No murmur Abdomen/GI:Soft, Non tender, Bowel sounds present Back: Surgical site Extremities/Musculoskeletal:normal inspection, no edema Neurologic/Psych: Grossly no focal deficits Skin: normal color, warm Results & Data Results & Data Vital Signs (Past 12 Hours) Vital Signs Temp Pulse Resp BP Pulse Ox O2 Del Method FiO2 02/14/23 14:46 Room Air 02/14/23 14:06 115 H 18 165/100 H 02/14/23 12:00 24 02/14/23 11:20 15 24 02/14/23 10:15 142/94 H 02/14/23 10:15 37.5 C 104 H 16 93 02/14/23 10:01 37.5 C 105 H 14 91 02/14/23 10:00 37.4 C 106 H 14 90 02/14/23 09:47 144/91 H 02/14/23 09:47 37.4 C 104 H 17 92 02/14/23 09:31 163/104 H 02/14/23 09:31 37.4 C 102 H 29 H 88 L 02/14/23 09:30 37.4 C 105 H 17 90 02/14/23 09:15 138/100 02/14/23 09:15 37.4 C 102 H 18 95 02/14/23 09:00 37.2 C 111 H 17 96 02/14/23 09:00 149/121 H 02/14/23 08:45 156/92 H 02/14/23 08:45 37.1 C 103 H 15 96 02/14/23 08:30 36.9 C 99 H 13 97 02/14/23 08:30 139/78 02/14/23 08:16 36.8 C 107 H 13 97 02/14/23 08:16 144/95 H 02/14/23 08:00 36.9 C 86 16 99 02/14/23 08:00 119/81 02/14/23 07:45 110/65 02/14/23 07:45 37.0 C 72 15 98 02/14/23 07:30 37.0 C 68 15 99 02/14/23 07:30 82/52 L 02/14/23 07:15 37.0 C 67 15 98 02/14/23 07:15 90/50 L 02/14/23 07:00 37.1 C 68 15 98 02/14/23 07:00 87/51 L 02/14/23 06:45 85/50 L 02/14/23 06:45 37.1 C 69 15 99 02/14/23 06:30 37.1 C 69 15 98 02/14/23 06:30 88/58 L 02/14/23 06:15 71/47 L 02/14/23 06:15 37.0 C 70 15 99 02/14/23 06:06 92/59 L 02/14/23 06:06 37.0 C 76 16 99 02/14/23 06:00 37.0 C 71 15 99 02/14/23 06:00 75/45 L 02/14/23 05:45 85/54 L 02/14/23 05:45 37.0 C 71 15 100 02/14/23 05:30 37.0 C 71 15 100 02/14/23 05:30 76/46 L 02/14/23 05:15 86/52 L 02/14/23 05:15 37.0 C 72 15 99 02/14/23 05:00 37.0 C 73 15 100 02/14/23 05:00 88/55 L 02/14/23 04:45 82/53 L 02/14/23 04:45 37.0 C 72 15 99 02/14/23 08:00 30 02/14/23 07:46 67 15 98 30 Laboratory Results Short CBC 02/14/23 Range/Units 03:41 WBC 7.02 (4.8-10.8) K/ul Hgb 11.4 L (14.0-18.0) g/dl Hct 32.5 L (42.0-52.0) % Plt Count 245 (130-400) K/uL BMP 02/14/23 03:31 Sodium 134 L Potassium 4.1 D Chloride 104 Carbon Dioxide 26 BUN 13 Creatinine 0.70 Glucose 100 H Calcium 8.1 L
[2023-02-14] MEDS ORDERED: STAT IV Infusion **Titration per Protocol STA (16:48)
[2023-02-14] MEDS: dexMEDEtomidine 200 MCG/50 ML BAG IV SCH ×5 (17:05→22:50)
[2023-02-14] MEDS: ATORVASTATIN 40 MG TAB PO SCH (19:39)
[2023-02-14] MEDS: DOCUSATE SODIUM/SENNA 50/8.6MG TAB PO SCH (19:39)
[2023-02-14] MEDS: traZODone HCL 100 MG TAB PO SCH (19:40)
[2023-02-14] MEDS: LIDOCAINE 5% 1 PATCH TD SCH (20:55)
[2023-02-15] MEDS: dexMEDEtomidine 200 MCG/50 ML BAG IV SCH ×14 (00:28→18:47)
[2023-02-15] MEDS ORDERED: ACETAMINOPHEN 1,000 MG/100 ML VIAL IV STA (02:35)
[2023-02-15] MEDS ORDERED: ACETAMINOPHEN 1000 MG/100 ML IV IV ONE (02:52)
[2023-02-15] MEDS: PHENobarbital sodium 65 MG/ML VIAL IV PRN ×2 (02:56→08:27)
[2023-02-15 04:27] LABS: Basophils # (auto) 0.03 K/uL (0.00-0.20); Basophils % (auto) 0.4 %; Eosinophils # (auto) 0.22 K/uL (0.00-0.50); Eosinophils % (auto) 2.7 %; Hematocrit (blood only) 29.4 % (42.0-52.0); Hemoglobin 10.4 g/dl (14.0-18.0); Immature Granulocytes # (auto) 0.04 K/uL (0.01-0.20); Immature Granulocytes % (auto) 0.5 %; Lymphocytes # (auto) 0.91 K/uL (1.20-3.40); Lymphocytes % (auto) 11.2 %; Mean Corpuscular Hemoglobin 33.9 pg (25.0-34.0); Mean Corpuscular Hgb Conc 35.4 g/dL (32.0-36.0); Mean Corpuscular Volume 95.8 fL (80.0-100.0); Mean Platelet Volume 9.6 fL (9.4-12.4); Monocytes # (auto) 0.71 K/uL (0.11-0.59); Monocytes % (auto) 8.8 %; Neutrophils # (auto) 6.19 K/uL (1.40-6.50); Neutrophils % (auto) 76.4 %; Platelet Count 251 K/uL (130-400); RDW Coefficient of Variation 11.8 % (11.5-14.5); RDW Standard Deviation 41.1 fL (36.4-46.3); Red Blood Count 3.07 M/uL (4.70-6.10)
[2023-02-15 04:45] LABS: Calcium 8.5 mg/dl (8.6-10.3); Creatinine Clr Calc Pharmacy 141.6 ml/min; Est GFR (African American) 128.2 ml/min; Est GFR (Non-African American) 110.6 ml/min; Magnesium 1.4 mg/dl (1.7-2.4); Phosphorus 2.4 mg/dl (2.5-4.9); Potassium 3.6 mmol/L (3.5-5.1)
[2023-02-15] MEDS: ICU ELECTROLYTE REPLACEMENT PROTOCOL SCH ×2 (06:25→16:56)
[2023-02-15] MEDS ORDERED: SODIUM PHOSPHATE 3 MMOL/1 ML INFUSION IV STA (06:26)
[2023-02-15] MEDS: MAGNESIUM SULFATE / D5W 1 GM/100 ML BAG IV SCH ×4 (06:37→12:19)
[2023-02-15] MEDS: POTASSIUM CHLORIDE / WTR 10 MEQ/100 ML PLCT IV SCH ×4 (06:38→09:36)
[2023-02-15] MEDS ORDERED: SODIUM PHOSPHATE 9 MMOL in SODIUM CHLORIDE 0.9% 250 ML IV ONE (06:45)
[2023-02-15] MEDS: PANTOprazole 40 MG in SYRINGE 0 ML IV SCH (08:07)
[2023-02-15] MEDS: MULTI VIT W/MINERALS LIQUID 15 ML UDP NG SCH (08:42)
[2023-02-15] MEDS: DOCUSATE SODIUM SYRUP 100 MG/10 ML UDC PO SCH (08:42)
[2023-02-15] MEDS: PHENobarbitaL 30 MG TAB PO SCH ×2 (08:42→20:05)
[2023-02-15] MEDS: busPIRone 15 MG TAB PO SCH ×3 (08:42→20:03)
[2023-02-15] MEDS: FOLIC ACID 1 MG TAB PO SCH (08:42)
[2023-02-15] MEDS: lisinopril 40 MG TAB PO SCH (08:42)
[2023-02-15] MEDS: POLYETHYLENE (MIRALAX) 17 GM PACK PO SCH (08:43)
[2023-02-15] MEDS: THIAMINE HCL 100 MG TAB PO SCH (08:44)
[2023-02-15] MEDS: ENOXAPARIN INJ 40 MG/0.4 ML SYR SQ SCH (12:20)
[2023-02-15] MEDS ORDERED: CEFTRIAXONE SODIUM IV SCH (13:00)
[2023-02-15] MEDS ORDERED: MINI B IV SCH (13:00)
[2023-02-15] MEDS ORDERED: cefTRIAXone SODIUM 2,000 MG in DEXTROSE 5 % MINI-B 50 ML IV SCH (13:00)
[2023-02-15] MEDS ORDERED: DEXTROSE 5% IV SCH (13:00)
--- NOTE | 2023-02-15 17:12 | Hospitalist Progress Note ---
Date of Service February 15, 2023 Assessment & Plan (1) Thoracic radiculopathy: Plan: Patient presenting for evaluation of back pain, right foot drop, bilateral leg weakness and numbness. Outpatient thoracic MRI from 01/27 -at T10/11, there is a broad-based midline disc protrusion measuring 4 mm in diameter causing moderate flattening of the cord. There is severe spinal canal stenosis secondary to the protrusion and bilateral facet osteoarthritis. Myelopathy concurrent with and due to spinal stenosis of thoracic region --Lumbar spine MRI:Multilevel degenerative changes are seen. There is up to severe left and moderate right bilateral neural foraminal stenosis. Mild canal stenosis is seen. Partially visualized, there appears to be significant canal or neural foraminal stenosis in the lower thoracic spine most prominently at T10-T11. If there is concern for spinal cord impingement, dedicated thoracic spine MRI can be performed. S/P Decompression and fusion T10-T12 by on 02/03/23 Postoperative acute blood loss Activity and wound care orders as per ortho Pain control with bowel regimen Continue PT/OT as able Appreciate orthopedics help Monitor CBC, currently no indications for blood transfusion Fall precautions Needs follow-up with orthopedics upon discharge (2) Alcohol withdrawal: Plan: Acute metabolic encephalopathy --CT Head:Motion degraded exam without acute intracranial abnormality. Alcohol withdrawal DTs Ex- reported to nursing that patient drinks alcohol heavily per record S/P Intubation 02/12/23 S/P Extubation on 02/14/23 --Blood culture negative to date --Sputum cultures showed Corynebacterium species Was on gabapentin protocol Continue thiamine, folic acid Ativan as needed IV fluids as needed Taper off of phenobarbital as able Appreciate webbing tacker help Empirically on Rocephin--received 3 doses On Precedex drip Still undergoing through DTs Hypophosphatemia Hypomagnesemia Replete electrolytes as needed Suspected sleep apnea Supplemental oxygen as needed Needs sleep study as outpatient (3) Ileus: Plan: --CT ABD:Multiple gas-distended loops of large bowel are seen. No small bowel obstruction is seen. Resolved, tolerating regular diet, bowel regimen resumed Monitor (4) HTN (hypertension): Plan: Chronic, stable Resumed lisinopril Plan to resume metoprolol as able Monitor BP (5) Anxiety: (6) Depression: Plan: Chronic, stable Continue home meds (7) Allergic rhinitis: Plan: Follows with allergy and receives immunotherapy injections. Discussed with Lizzy Child PA-C -- due for injection on 02/11. Office will not transport serum to hospital for administration and do not recommend injection while acutely ill. Outpatient follow up. (8) HLD (hyperlipidemia): Plan: Chronic, stable Continue statin DVT Px: Lovenox SQ Admission and Anticipated Discharge Date Admission Date: February 01, 2023 Subjective Patient is seen and examined at bedside Or alert, awake today Confused and intermittently agitated Discussed with patient's family at bedside On Precedex drip Review of Systems Review of Systems: Other Physical Exam Physical Exam: Physical Exam: Vitals signs as noted above General Appearance:Moderately built and nourished, no apparent distress Head: normocephalic, Atraumatic Eyes: normal inspection, EOMI Neck: supple, Trachea midline Respiratory/Chest: Normal breath sounds, CTA, No accessory muscle use Cardiovascular: S1, S2, No murmur Abdomen/GI:Soft, Non tender, Bowel sounds present Back: Surgical site Extremities/Musculoskeletal:normal inspection, no edema Neurologic/Psych: Grossly no focal deficits, confused Skin: normal color, warm Results & Data Results & Data Vital Signs (Past 12 Hours) Vital Signs Pulse Resp BP Pulse Ox 02/15/23 16:00 59 L 22 96 02/15/23 15:01 56 L 20 96 02/15/23 15:01 130/86 02/15/23 15:00 57 L 19 97 02/15/23 14:00 54 L 17 93 02/15/23 14:00 120/68 02/15/23 13:00 54 L 16 97 02/15/23 13:00 148/89 H 02/15/23 16:00 51 L 02/15/23 12:30 62 19 97 02/15/23 12:00 49 L 13 96 02/15/23 11:30 52 L 16 97 02/15/23 11:00 59 L 14 99 02/15/23 12:57 51 L 02/15/23 10:30 51 L 13 97 02/15/23 10:00 51 L 16 94 02/15/23 10:00 127/65 02/15/23 09:36 108/66 02/15/23 09:36 52 L 17 94 02/15/23 09:30 52 L 16 94 02/15/23 09:00 66 20 93 02/15/23 08:30 61 20 90 02/15/23 08:00 64 19 94 02/15/23 08:00 146/86 H 02/15/23 07:30 74 23 95 02/15/23 07:00 65 25 H 92 02/15/23 07:00 128/72 02/15/23 06:45 66 23 91 02/15/23 08:27 66 20 146/86 H Laboratory Results Short CBC 02/15/23 Range/Units 03:57 WBC 8.10 (4.8-10.8) K/ul Hgb 10.4 L (14.0-18.0) g/dl Hct 29.4 L (42.0-52.0) % Plt Count 251 (130-400) K/uL BMP 02/15/23 03:57 Sodium 136 Potassium 3.6 Chloride 102 Carbon Dioxide 25 BUN 9 Creatinine 0.50 L Glucose 110 H Calcium 8.5 L
--- NOTE | 2023-02-15 19:31 | Critical Care Progress Note ---
Date of Service February 15, 2023 Assessment & Plan (1) Delirium tremens: (2) Myelopathy concurrent with and due to spinal stenosis of thoracic region: (3) HTN (hypertension): (4) HLD (hyperlipidemia): Plan Reason Critically Ill: 67-year-old male presents to the ICU following emergent spinal decompression with fusion of T10-T12 and undergoing treatment for alcohol withdrawal now with refractory DTs requiring Precedex drip. Neuro - Delirium tremens-alcohol history previously confirmed with the patient's , unsure of actual amount of consumption -Continue folic acid, thiamine -CT head 02/09 negative for acute intracranial abnormalities -Continue with IV phenobarb as patient not able to take p.o.'s secondary to decreased mental status -Required addition of Precedex yesterday Spinal stenosis/thoracic radiculopathy -status post T10-T12 spinal decompression with fusion 02/03/2023. Management per surgical team Cardiac - HTN -On metoprolol Respiratory - Extubated 02/14 -- Probable sleep apnea Will need outpatient polysomnography O2 supplementation to keep O2 saturation between 90-92% GI - N.p.o. RENAL/LYTES - Creatinine within normal limits, monitor routine BMPs replete electrolytes as indicated - Devi discontinued, able to pass urine ENDO - No history of diabetes or thyroid disease, ICU hyperglycemic protocol HEME - H&H stable, monitor routine CBCs ID - Afebrile No new oxygen requirement UA was unremarkable 02/11/2023 Chest x-ray does not show any new infiltrate no white count Sputum results Corynebacterium not typical infectious organism we will continue to follow -Off anti-infectives --Prophylaxis VTE: Lovenox GI: Pantoprazole: Continue as this is a home medication Lines: Peripheral Diet: N.p.o. I have personally spent 35 minutes of critical care time in the direct management of this patient. This is a life/limb threatening event. This includes time spent evaluating patient, direct bedside care, chart review, placing orders, interpretation of diagnostic studies, discussion with consultants, patient, and family members, as well as other required patient management activities. This time is exclusive of all separately billable procedures, and teaching time and separate from and in addition to any other critical care service time. Admission and Anticipated Discharge Date Admission Date: February 01, 2023 Subjective Improved mental status. Patient able to pass urine, soiled bedsheets after self discontinuing Devi catheter. Still intermittently confused and agitated at times Physical Exam Physical Exam: General: Arousable. Disoriented mildly redirectable Skin: Warm, dry, Head: Atraumatic Ears, nose, mouth and throat: airway patent Cardiovascular: Normal peripheral perfusion Respiratory: no respiratory distress Gastrointestinal: Non distended Musculoskeletal: No deformity Results & Data Results & Data Vital Signs (Past 12 Hours) Vital Signs Temp Pulse Resp BP Pulse Ox O2 Del Method 02/15/23 19:19 Room Air 02/15/23 19:18 36.7 C 02/15/23 18:00 37.4 C 62 16 99 02/15/23 17:00 64 21 99 02/15/23 16:00 59 L 22 96 02/15/23 15:01 56 L 20 96 02/15/23 15:01 130/86 02/15/23 15:00 57 L 19 97 02/15/23 14:00 54 L 17 93 02/15/23 14:00 120/68 02/15/23 13:00 54 L 16 97 02/15/23 13:00 148/89 H 02/15/23 16:00 51 L 02/15/23 12:30 62 19 97 02/15/23 12:00 49 L 13 96 02/15/23 11:30 52 L 16 97 02/15/23 11:00 59 L 14 99 02/15/23 12:57 51 L 02/15/23 10:30 51 L 13 97 02/15/23 10:00 51 L 16 94 02/15/23 10:00 127/65 02/15/23 09:36 108/66 02/15/23 09:36 52 L 17 94 02/15/23 09:30 52 L 16 94 02/15/23 09:00 66 20 93 02/15/23 08:30 61 20 90 02/15/23 08:00 64 19 94 02/15/23 08:00 146/86 H 02/15/23 07:30 74 23 95 02/15/23 08:27 66 20 146/86 H Critical Care Results & Data Vital Signs (Past 12 Hours) Vital Signs Temp Pulse Resp BP Pulse Ox O2 Del Method 02/15/23 19:19 Room Air 02/15/23 19:18 36.7 C 02/15/23 18:00 37.4 C 62 16 99 02/15/23 17:00 64 21 99 02/15/23 16:00 59 L 22 96 02/15/23 15:01 56 L 20 96 02/15/23 15:01 130/86 02/15/23 15:00 57 L 19 97 02/15/23 14:00 54 L 17 93 02/15/23 14:00 120/68 02/15/23 13:00 54 L 16 97 02/15/23 13:00 148/89 H 02/15/23 16:00 51 L 02/15/23 12:30 62 19 97 02/15/23 12:00 49 L 13 96 02/15/23 11:30 52 L 16 97 02/15/23 11:00 59 L 14 99 02/15/23 12:57 51 L 02/15/23 10:30 51 L 13 97 02/15/23 10:00 51 L 16 94 02/15/23 10:00 127/65 02/15/23 09:36 108/66 02/15/23 09:36 52 L 17 94 02/15/23 09:30 52 L 16 94 02/15/23 09:00 66 20 93 02/15/23 08:30 61 20 90 02/15/23 08:00 64 19 94 02/15/23 08:00 146/86 H 02/15/23 07:30 74 23 95 02/15/23 08:27 66 20 146/86 H Lab & Micro Results (Past 24 Hours) RBC 3.07 M/uL (4.70-6.10) L 02/15/23 WBC 8.10 K/ul (4.8-10.8) 02/15/23 Hgb 10.4 g/dl (14.0-18.0) L 02/15/23 Hct 29.4 % (42.0-52.0) L 02/15/23 MCV 95.8 fL (80.0-100.0) 02/15/23 MCH 33.9 pg (25.0-34.0) 02/15/23 MCHC 35.4 g/dL (32.0-36.0) 02/15/23 RDW Standard Deviation 41.1 fL (36.4-46.3) 02/15/23 RDW Coefficient of Variation 11.8 % (11.5-14.5) 02/15/23 Plt Count 251 K/uL (130-400) 02/15/23 MPV 9.6 fL (9.4-12.4) 02/15/23 Neutrophils (%) (Auto) 76.4 % 02/15/23 Lymphocytes (%) (Auto) 11.2 % 02/15/23 Monocytes # (Auto) 0.71 K/uL (0.11-0.59) H 02/15/23 Eosinophils # (Auto) 0.22 K/uL (0.00-0.50) 02/15/23 Immature Granulocyte % (Auto) 0.5 % 02/15/23 Neutrophils # (Auto) 6.19 K/uL (1.40-6.50) 02/15/23 Lymphocytes # (Auto) 0.91 K/uL (1.20-3.40) L 02/15/23 Monocytes # (Auto) 0.71 K/uL (0.11-0.59) H 02/15/23 Eosinophils # (Auto) 0.22 K/uL (0.00-0.50) 02/15/23 Basophils # (Auto) 0.03 K/uL (0.00-0.20) 02/15/23 Immature Granulocyte # (Auto) 0.04 K/uL (0.01-0.20) 3 Na 136 mmol/L (136-145) 02/15/23 K 3.6 mmol/L (3.5-5.1) 02/15/23 Cl 102 mmol/L (98-107) 02/15/23 CO2 25 mmol/L (21-32) 02/15/23 Anion Gap 9 (3-11) 02/15/23 BUN 9 mg/dl (6-23) 02/15/23 Creatinine 0.50 mg/dl (0.6-1.4) L 02/15/23 Estimated GFR ( Amer) 128.2 ml/min 02/15/23 Estimated GFR (Non-Af Amer) 110.6 ml/min 02/15/23 BUN/Creatinine Ratio 18.0 (10-20) 02/15/23 Glu 110 mg/dl (70-99(Fasting)) H 02/15/23 Ca 8.5 mg/dl (8.6-10.3) L 02/15/23 Phosphorus Level 2.4 mg/dl (2.5-4.9) L 02/15/23 Mg 1.4 mg/dl (1.7-2.4) L 02/15/23 03:57 Calcium Level 8.5 mg/dl (8.6-10.3) L 02/15/23 03:57 I & O Totals 24 Hours 02/14/23 02/15/23 02/16/23 06:59 06:59 06:59 Intake Total 6031.3905 / 6031.3905 1562.025 / 0617.060 5752.828 / 1237.828 Output Total 2125 / 2125 1301 / 1301 600 / 600 Balance 3906.3905 / 3906.3905 261.025 / 261.025 637.828 / 637.828 Cumulative 02/01/23 11:04 thru 02/15/23 18:59 Intake Total 03024.5285 Output Total 69662 Balance 8613.5285 RT Ventilator Mngmt (Last Documented) Ventilator Ordered Settings Ventilator Support Mode CPAP 02/14/23 12:00 Respiratory Rate 16 02/15/23 18:00 Ventilator Tidal Volume 450 02/14/23 08:00 Setting Minute Ventilation 6.7 02/14/23 07:46 Ventilator Positive Pressure 5 02/14/23 12:00 Support Setting Positive End Expiratory 2 02/14/23 12:00 Pressure Fraction of Inspired Oxygen 24 02/14/23 12:00 Ventilator - PT Measurements Respiratory Rate 16 Exhaled Tidal Volume 658 Minute Ventilation 6.7 Peak Inspiratory Airway 17 Pressure Plateau Pressure 13.6 Respiratory Cycle Inspiratory: 1:3.0 Expiratory Ratio Inspiratory Phase Time 1.0 End-Tidal CO2 37 Static Lung Compliance 52.33 Dynamic Lung Compliance 37.50 Normal Static Lung Compliance 48.00 Patient Measurements Comment pt extubated per DR. Mcnamara. [facility] Coding Level of Care Code 04451 CRITICAL CARE 1ST 30-74M Diagnoses Delirium tremens F10.931 Myelopathy concurrent with and due to spinal stenosis of thoracic region M48.04; G99.2 HTN (hypertension) I10 HLD (hyperlipidemia) E78.5
[2023-02-15] MEDS ORDERED: MoRPHine SULFATE 2 MG/ML CARP IV STA (19:46)
[2023-02-15] MEDS: traZODone HCL 100 MG TAB PO SCH (20:02)
[2023-02-15] MEDS: ATORVASTATIN 40 MG TAB PO SCH (20:03)
[2023-02-15] MEDS: DOCUSATE SODIUM/SENNA 50/8.6MG TAB PO SCH (20:05)
[2023-02-15] MEDS: LIDOCAINE 5% 1 PATCH TD SCH (20:57)
[2023-02-15] MEDS: ACETAMINOPHEN 325 MG TAB PO PRN (22:47)
[2023-02-16] MEDS ORDERED: fentaNYL BOLUS from BAG IV PRN (01:53)
[2023-02-16] MEDS ORDERED: STAT IV Infusion **Titration per Protocol STA (01:53)
[2023-02-16] MEDS ORDERED: fentaNYL citrate 2,500 MCG/250 ML BAG IV SCH (02:00)
[2023-02-16] MEDS: MoRPHine SULFATE 2 MG/ML CARP IV PRN ×5 (02:01→20:18)
[2023-02-16 04:26] LABS: Basophils # (auto) 0.04 K/uL (0.00-0.20); Basophils % (auto) 0.6 %; Eosinophils # (auto) 0.25 K/uL (0.00-0.50); Eosinophils % (auto) 3.5 %; Hematocrit (blood only) 33.7 % (42.0-52.0); Hemoglobin 12.1 g/dl (14.0-18.0); Immature Granulocytes # (auto) 0.06 K/uL (0.01-0.20); Immature Granulocytes % (auto) 0.8 %; Lymphocytes # (auto) 1.39 K/uL (1.20-3.40); Lymphocytes % (auto) 19.3 %; Mean Corpuscular Hemoglobin 34.3 pg (25.0-34.0); Mean Corpuscular Hgb Conc 35.9 g/dL (32.0-36.0); Mean Corpuscular Volume 95.5 fL (80.0-100.0); Mean Platelet Volume 9.5 fL (9.4-12.4); Monocytes # (auto) 0.71 K/uL (0.11-0.59); Monocytes % (auto) 9.9 %; Neutrophils # (auto) 4.75 K/uL (1.40-6.50); Neutrophils % (auto) 65.9 %; Platelet Count 307 K/uL (130-400); Red Blood Count 3.53 M/uL (4.70-6.10)
[2023-02-16 04:43] LABS: Est GFR (African American) 111.6 ml/min; Est GFR (Non-African American) 96.3 ml/min
[2023-02-16 04:44] LABS: BUN Creatinine Ratio 14.3 (10-20); Calcium 9.1 mg/dl (8.6-10.3); Creatinine Clr Calc Pharmacy 102.8 ml/min; Magnesium 1.6 mg/dl (1.7-2.4); Phosphorus 3.1 mg/dl (2.5-4.9)
[2023-02-16] MEDS: ACETAMINOPHEN 325 MG TAB PO PRN ×3 (04:51→19:53)
[2023-02-16] MEDS: MAGNESIUM SULFATE / D5W 1 GM/100 ML BAG IV SCH ×4 (05:17→09:38)
[2023-02-16] MEDS ORDERED: MAGNESIUM SULFATE / D5W 1 GM/100 ML BAG IV SCH (06:15)
[2023-02-16] MEDS: ICU ELECTROLYTE REPLACEMENT PROTOCOL SCH ×2 (06:47→11:57)
[2023-02-16] MEDS: dexMEDEtomidine 200 MCG/50 ML BAG IV SCH (07:30)
[2023-02-16] MEDS: DOCUSATE SODIUM SYRUP 100 MG/10 ML UDC PO SCH (07:35)
[2023-02-16] MEDS: PANTOprazole 40 MG in SYRINGE 0 ML IV SCH (07:35)
[2023-02-16] MEDS: busPIRone 15 MG TAB PO SCH ×3 (07:35→20:20)
[2023-02-16] MEDS: lisinopril 40 MG TAB PO SCH (07:36)
[2023-02-16] MEDS: POLYETHYLENE (MIRALAX) 17 GM PACK PO SCH (07:36)
[2023-02-16] MEDS: MULTI VIT W/MINERALS LIQUID 15 ML UDP NG SCH (07:36)
[2023-02-16] MEDS: FOLIC ACID 1 MG TAB PO SCH (07:36)
[2023-02-16] MEDS: THIAMINE HCL 100 MG TAB PO SCH (07:37)
[2023-02-16] MEDS: ENOXAPARIN INJ 40 MG/0.4 ML SYR SQ SCH (11:56)
--- NOTE | 2023-02-16 13:56 | Critical Care Progress Note ---
Date of Service February 16, 2023 Assessment & Plan (1) Delirium tremens: (2) Myelopathy concurrent with and due to spinal stenosis of thoracic region: (3) HTN (hypertension): (4) HLD (hyperlipidemia): Plan Reason Critically Ill: 67-year-old male presents to the ICU following emergent spinal decompression with fusion of T10-T12 and undergoing treatment for alcohol withdrawal now with refractory DTs requiring Precedex drip. Neuro - Delirium tremens-alcohol history previously confirmed with the patient's , unsure of actual amount of consumption: Significant improvement -Continue folic acid, thiamine -CT head 02/09 negative for acute intracranial abnormalities -Start oral phenobarb taper -Off Precedex Spinal stenosis/thoracic radiculopathy -status post T10-T12 spinal decompression with fusion 02/03/2023. Management per surgical team Cardiac - HTN -On metoprolol Respiratory - Extubated 02/14 -- Probable sleep apnea Will need outpatient polysomnography O2 supplementation to keep O2 saturation between 90-92% GI - Regular diet RENAL/LYTES - Creatinine within normal limits, monitor routine BMPs replete electrolytes as indicated - Patient unable to pass urine this afternoon, replaced Devi we will consult urology for voiding trial possibly prior to discharge secondary to traumatic Devi dislodgment ENDO - No history of diabetes or thyroid disease, ICU hyperglycemic protocol HEME - H&H stable, monitor routine CBCs ID - Afebrile No new oxygen requirement UA was unremarkable 02/11/2023 Chest x-ray does not show any new infiltrate no white count Sputum results Corynebacterium not typical infectious organism we will continue to follow -Off anti-infectives --Prophylaxis VTE: Lovenox GI: Pantoprazole: Continue as this is a home medication Lines: Peripheral Diet: Regular Stable for downgrade out of ICU. Admission and Anticipated Discharge Date Admission Date: February 01, 2023 Subjective Overnight events. Patient much more alert, confused but somewhat redirectable. Able to participate in care. Now taking p.o. Physical Exam Physical Exam: General: Alert. nontoxic. Redirectable, confused Skin: Warm, dry, Head: Atraumatic Ears, nose, mouth and throat: airway patent Cardiovascular: Normal peripheral perfusion Respiratory: no respiratory distress Gastrointestinal: Non distended Musculoskeletal: No deformity Results & Data Results & Data Vital Signs (Past 12 Hours) Vital Signs Temp Pulse Resp BP Pulse Ox 10/12/23 13:01 101 H 16 97 02/16/23 13:01 141/84 H 02/16/23 13:00 100 H 21 98 02/16/23 12:00 94 H 17 98 02/16/23 12:00 147/122 H 02/16/23 11:30 89 14 98 02/16/23 12:13 36.8 C 02/16/23 08:00 37.2 C 02/16/23 11:00 90 19 99 02/16/23 10:01 94 H 15 98 02/16/23 10:01 142/88 H 02/16/23 10:00 97 H 15 98 02/16/23 09:01 99 H 18 97 02/16/23 09:01 113/73 02/16/23 09:00 98 H 19 96 02/16/23 08:02 116 H 13 95 02/16/23 08:02 165/96 H 02/16/23 08:00 107 H 20 96 02/16/23 07:00 93 H 19 94 02/16/23 07:00 177/97 H 02/16/23 06:30 90 17 94 02/16/23 06:00 87 17 159/85 H 95 02/16/23 05:30 89 95 02/16/23 05:01 95 H 178/100 H 96 02/16/23 05:00 97 02/16/23 04:30 92 H 96 02/16/23 04:00 96 H 13 94 02/16/23 05:03 36.8 C 02/16/23 03:30 93 H 17 92 02/16/23 03:00 87 19 132/68 94 02/16/23 02:30 87 14 97 02/16/23 02:00 94 H 18 96 Critical Care Results & Data Vital Signs (Past 12 Hours) Vital Signs Temp Pulse Resp BP Pulse Ox 02/16/23 13:01 101 H 16 97 02/16/23 13:01 141/84 H 02/16/23 13:00 100 H 21 98 02/16/23 12:00 94 H 17 98 02/16/23 12:00 147/122 H 02/16/23 11:30 89 14 98 02/16/23 12:13 36.8 C 02/16/23 08:00 37.2 C 02/16/23 11:00 90 19 99 02/16/23 10:01 94 H 15 98 02/16/23 10:01 142/88 H 02/16/23 10:00 97 H 15 98 02/16/23 09:01 99 H 18 97 02/16/23 09:01 113/73 02/16/23 09:00 98 H 19 96 02/16/23 08:02 116 H 13 95 02/16/23 08:02 165/96 H 02/16/23 08:00 107 H 20 96 02/16/23 07:00 93 H 19 94 02/16/23 07:00 177/97 H 02/16/23 06:30 90 17 94 02/16/23 06:00 87 17 159/85 H 95 02/16/23 05:30 89 95 02/16/23 05:01 95 H 178/100 H 96 02/16/23 05:00 97 02/16/23 04:30 92 H 96 02/16/23 04:00 96 H 13 94 02/16/23 05:03 36.8 C 02/16/23 03:30 93 H 17 92 02/16/23 03:00 87 19 132/68 94 02/16/23 02:30 87 14 97 02/16/23 02:00 94 H 18 96 Lab & Micro Results (Past 24 Hours) RBC 3.53 M/uL (4.70-6.10) L 02/16/23 WBC 7.20 K/ul (4.8-10.8) 02/16/23 Hgb 12.1 g/dl (14.0-18.0) L 02/16/23 Hct 33.7 % (42.0-52.0) L 02/16/23 MCV 95.5 fL (80.0-100.0) 02/16/23 MCH 34.3 pg (25.0-34.0) H 02/16/23 MCHC 35.9 g/dL (32.0-36.0) 02/16/23 RDW Standard Deviation 42.0 fL (36.4-46.3) 02/16/23 RDW Coefficient of Variation 12.0 % (11.5-14.5) 02/16/23 Plt Count 307 K/uL (130-400) 02/16/23 MPV 9.5 fL (9.4-12.4) 02/16/23 Neutrophils (%) (Auto) 65.9 % 02/16/23 Lymphocytes (%) (Auto) 19.3 % 02/16/23 Monocytes # (Auto) 0.71 K/uL (0.11-0.59) H 02/16/23 Eosinophils # (Auto) 0.25 K/uL (0.00-0.50) 02/16/23 Immature Granulocyte % (Auto) 0.8 % 02/16/23 Neutrophils # (Auto) 4.75 K/uL (1.40-6.50) 02/16/23 Lymphocytes # (Auto) 1.39 K/uL (1.20-3.40) 02/16/23 Monocytes # (Auto) 0.71 K/uL (0.11-0.59) H 02/16/23 Eosinophils # (Auto) 0.25 K/uL (0.00-0.50) 02/16/23 Basophils # (Auto) 0.04 K/uL (0.00-0.20) 02/16/23 Immature Granulocyte # (Auto) 0.06 K/uL (0.01-0.20) 3 Na 137 mmol/L (136-145) 02/16/23 K 4.0 mmol/L (3.5-5.1) 02/16/23 Cl 102 mmol/L (98-107) 02/16/23 CO2 25 mmol/L (21-32) 02/16/23 Anion Gap 10 (3-11) 02/16/23 BUN 10 mg/dl (6-23) 02/16/23 Creatinine 0.70 mg/dl (0.6-1.4) 02/16/23 Estimated GFR ( Amer) 111.6 ml/min 02/16/23 Estimated GFR (Non-Af Amer) 96.3 ml/min 02/16/23 BUN/Creatinine Ratio 14.3 (10-20) 02/16/23 Glu 81 mg/dl (70-99(Fasting)) 02/16/23 Ca 9.1 mg/dl (8.6-10.3) 02/16/23 Phosphorus Level 3.1 mg/dl (2.5-4.9) 02/16/23 Mg 1.6 mg/dl (1.7-2.4) L 02/16/23 04:11 Calcium Level 9.1 mg/dl (8.6-10.3) 02/16/23 04:11 I & O Totals 24 Hours 02/15/23 02/16/23 02/17/23 06:59 06:59 06:59 Intake Total 1562.025 / 4255.461 1656.571 / 1996.571 885.29 / 885.29 Output Total 1301 / 1301 1350 / 1350 400 / 400 Balance 261.025 / 261.025 646.571 / 646.571 485.29 / 485.29 Cumulative 02/01/23 11:04 thru 02/16/23 11:58 Intake Total 76586.5615 Output Total 68561 Balance 9107.5615 RT Ventilator Mngmt (Last Documented) Ventilator Ordered Settings Ventilator Support Mode CPAP 02/14/23 12:00 Respiratory Rate 16 02/16/23 13:01 Ventilator Tidal Volume 450 02/14/23 08:00 Setting Minute Ventilation 6.7 02/14/23 07:46 Ventilator Positive Pressure 5 02/14/23 12:00 Support Setting Positive End Expiratory 2 02/14/23 12:00 Pressure Fraction of Inspired Oxygen 24 02/14/23 12:00 Ventilator - PT Measurements Respiratory Rate 16 Exhaled Tidal Volume 658 Minute Ventilation 6.7 Peak Inspiratory Airway 17 Pressure Plateau Pressure 13.6 Respiratory Cycle Inspiratory: 1:3.0 Expiratory Ratio Inspiratory Phase Time 1.0 End-Tidal CO2 37 Static Lung Compliance 52.33 Dynamic Lung Compliance 37.50 Normal Static Lung Compliance 48.00 Patient Measurements Comment pt extubated per DR. Mcnamara. Currently on 2L [facility] Coding Level of Care Code 08114 SUB INP/OBS CARE 3/50MIN Diagnoses Delirium tremens F10.931 Myelopathy concurrent with and due to spinal stenosis of thoracic region M48.04; G99.2 HTN (hypertension) I10 HLD (hyperlipidemia) E78.5
--- NOTE | 2023-02-16 14:25 | Urology Consultation ---
Date of Consultation February 16, 2023 Assessment & Plan (1) Urinary retention: 67yo M presented for evaluation of back pain, right dropfoot and bilateral leg weakness and numbness. He underwent lumbar decompression and spinal fusion T10- T12 with Dr. Lott on 02/03/2023 secondary to myelopathy due to spinal stenosis of his thoracic region. Postoperative course complicated by alcohol withdrawal with refractory delirium tremens requiring transfer to ICU for Precedex drip, extubated on 02/14. Urology consulted for urinary retention, voiding trial Devi was traumatically removed by patient 2 days ago Catheter replaced today due to difficulty voiding Devi patent and draining clear yellow urine Recommend maintain Devi catheter for 1 week Voiding trial can be performed inpatient if he remains hospitalized or can be arranged with our office if he is discharged prior Can consider initiating Tamsulosin Continue supportive care and medical management per hospital medicine service will sign off, contact our service with any additional questions or concerns History of Present Illness Reason for Consultation: Urinary retention, voiding trial Attending Physician: José Manuel Gordillo MD History of Present Illness This is a 67-year-old male with past medical history of depression, hypertension, hyperlipidemia, lumbar and thoracic radiculopathy who presented to the emergency department on 02/01/2023 for evaluation of back pain, right dropfoot and bilateral leg weakness and numbness. He underwent lumbar decompression and spinal fusion T10-T12 with Dr. Lott on 02/03/2023 secondary to myelopathy due to spinal stenosis of his thoracic region. Postoperative course complicated by alcohol withdrawal with refractory delirium tremens requiring transfer to ICU for Precedex drip, extubated on 02/14. Urology consulted for urinary retention, voiding trial. Per nursing, patient traumatically removed his Devi catheter 2 days ago with Devi balloon intact. He was voiding spontaneously until this afternoon. He developed difficulty voiding. PVR was approx 300 mL and he was unable to void. Devi catheter was replaced. Patient seen and examined at bedside. Family member present. He is awake and resting in bed, no apparent distress. Devi patent and draining clear yellow urine. He denies discomfort from Devi catheter. He denies bothersome LUTS at baseline. Nocturia x1. No bothersome urgency or frequency. No sensation of incomplete emptying. He is not on any medications for BPH/urinary symptoms. No family history of malignancy. Allergies Allergy/AdvReac Type Severity Reaction Status Date / Time cat dander Allergy Unknown YORDY DOG Verified 09/22/22 14:40 NASAL [id number], ITCHY EYES grass pollen-perennial rye, Allergy Unknown TREES,GRASS-NASAL Verified 09/22/22 14:40 standar CONGESTION pollen extracts Allergy Unknown ITCHY Verified 09/22/22 14:40 EYES,NASAL CONGESTION Home Medications Medication Instructions Recorded Confirmed Type atorvastatin 40 mg tablet (Lipitor) 40 mg PO HS 03/12/21 02/01/23 History lisinopril 40 mg tablet 40 mg PO QAM 03/12/21 02/01/23 History omeprazole 20 mg capsule,delayed 20 mg PO BID 03/12/21 02/01/23 History release sildenafil 50 mg tablet (Viagra) 50 mg PO DAILY PRN Erectile 03/12/21 02/01/23 History Dysfunction baclofen 10 mg tablet 10 mg PO TID PRN Muscle Spasm 02/01/23 02/01/23 History bupropion HCl 200 mg tablet,12 hr 200 mg PO BID 02/01/23 02/01/23 History sustained-release buspirone 15 mg tablet 15 mg PO TID 02/01/23 02/01/23 History desonide 0.05 % topical cream 1 applic topical BID PRN psoriasis 02/01/23 02/01/23 History hydrocortisone 2.5 % topical cream 1 applic topical BID PRN Itching 02/01/23 02/01/23 History metoprolol tartrate 25 mg tablet 25 mg PO BID 02/01/23 02/01/23 History tacrolimus 0.1 % topical ointment 1 applic topical BID PRN genital 02/01/23 02/01/23 History psoriasis trazodone 100 mg tablet 100 mg PO HS 02/01/23 02/01/23 History Patient History Medical History Allergic rhinitis Anxiety Depression GERD (gastroesophageal reflux disease) HLD (hyperlipidemia) HTN (hypertension) Surgical History History of back surgery Social History Smoking Status: Former smoker Smoking End Date: quit smoking years ago; Second Hand Exposure: No; Do You Dip or Chew Tobacco: No; Tobacco Cessation Education Requested by Patient: No Hx Alcohol Use: Yes Alcohol type: hard liquor Hx Substance Use: No Preferred Language: Nauruan Communication Ability: Effective Television Maintenance Worker Required: No Beliefs That Will Affect Care: Christianity Current Living Situation: Family Current Living Situation Comment: lives with son Other Information That Helps Us Care for You: No Feels Safe at Home: Yes Safety Concerns: Feels Safe At This Time Assistive Devices: Cane Review of Systems Review of Systems: All systems reviewed & are unremarkable except as noted in HPI & below Physical Exam Constitutional: no acute distress Eyes: no scleral abnormality Neck: trachea midline Respiratory: no respiratory distress and no labored breathing Gastrointestinal (Abdomen): Inspection/Auscultation: abdomen normal to inspection; abdomen not distended Musculoskeletal: Head/Neck/Chest: normocephalic Neurologic: awake Psychiatric: Orientation: alert and oriented to person Genitourinary: Devi patent and draining clear yellow urine Results & Data Vital Signs (Past 12 Hours) Vital Signs Temp Pulse Resp BP Pulse Ox 02/16/23 13:01 101 H 16 97 02/16/23 13:01 141/84 H 02/16/23 13:00 100 H 21 98 02/16/23 12:00 94 H 17 98 02/16/23 12:00 147/122 H 02/16/23 11:30 89 14 98 02/16/23 12:13 36.8 C 02/16/23 08:00 37.2 C 02/16/23 11:00 90 19 99 02/16/23 10:01 94 H 15 98 02/16/23 10:01 142/88 H 02/16/23 10:00 97 H 15 98 02/16/23 09:01 99 H 18 97 02/16/23 09:01 113/73 02/16/23 09:00 98 H 19 96 02/16/23 08:02 116 H 13 95 02/16/23 08:02 165/96 H 02/16/23 08:00 107 H 20 96 02/16/23 07:00 93 H 19 94 02/16/23 07:00 177/97 H 02/16/23 06:30 90 17 94 02/16/23 06:00 87 17 159/85 H 95 02/16/23 05:30 89 95 02/16/23 05:01 95 H 178/100 H 96 02/16/23 05:00 97 02/16/23 04:30 92 H 96 02/16/23 04:00 96 H 13 94 02/16/23 05:03 36.8 C 02/16/23 03:30 93 H 17 92 02/16/23 03:00 87 19 132/68 94 02/16/23 02:30 87 14 97 PG Care Time/CCT Total # of Minutes Spent Total Time Spent with Patient: Total time spent is greater than 50% in coordination of care (as documented) at patient's floor/unit and/or counseling patient: Coding Level of Care Code 89601 INT INP/OBS CARE 2/55MIN Diagnoses Urinary retention R33.9
--- NOTE | 2023-02-16 15:17 | Hospitalist Progress Note ---
Date of Service February 16, 2023 Assessment & Plan (1) Thoracic radiculopathy: Plan: Patient presenting for evaluation of back pain, right foot drop, bilateral leg weakness and numbness. Outpatient thoracic MRI from 01/27 -at T10/11, there is a broad-based midline disc protrusion measuring 4 mm in diameter causing moderate flattening of the cord. There is severe spinal canal stenosis secondary to the protrusion and bilateral facet osteoarthritis. Myelopathy concurrent with and due to spinal stenosis of thoracic region --Lumbar spine MRI:Multilevel degenerative changes are seen. There is up to severe left and moderate right bilateral neural foraminal stenosis. Mild canal stenosis is seen. Partially visualized, there appears to be significant canal or neural foraminal stenosis in the lower thoracic spine most prominently at T10-T11. If there is concern for spinal cord impingement, dedicated thoracic spine MRI can be performed. S/P Decompression and fusion T10-T12 by on 02/03/23 Postoperative acute blood loss Activity and wound care orders as per ortho Pain control with bowel regimen Continue PT/OT as able Appreciate orthopedics help Monitor CBC, currently no indications for blood transfusion Fall precautions Needs follow-up with orthopedics upon discharge (2) Alcohol withdrawal: Plan: Acute metabolic encephalopathy --CT Head:Motion degraded exam without acute intracranial abnormality. 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 No small bowel obstruction is seen. Resolved, tolerating regular diet, bowel regimen resumed Monitor (4) HTN (hypertension): Plan: Chronic, stable Continue lisinopril, metoprolol Monitor (5) Anxiety: Plan: Resume home medications as able (6) Depression: Plan: Chronic, stable Continue home meds (7) Allergic rhinitis: Plan: Follows with allergy and receives immunotherapy injections. Discussed with Lizzy Child PA-C -- due for injection on 02/11. Office will not transport serum to hospital for administration and do not recommend injection while acutely ill. Outpatient follow up. (8) HLD (hyperlipidemia): Plan: Chronic, stable Continue statin DVT Px: Lovenox SQ Disposition PT OT prior to discharge Admission and Anticipated Discharge Date Admission Date: February 01, 2023 Subjective Patient is seen and examined at bedside Mental status much improved Precedex drip discontinued States having back pain Discussed with patient's family at bedside Plan to be transferred out of ICU today Denies any chest pain, dyspnea, dizziness, nausea, vomiting, abdominal pain Review of Systems Review of Systems: All systems reviewed & are unremarkable except as noted in Subjective Physical Exam Physical Exam: Physical Exam: Vitals signs as noted above General Appearance:Moderately built and nourished, no apparent distress Head: normocephalic, Atraumatic Eyes: normal inspection, EOMI Neck: supple, Trachea midline Respiratory/Chest: Normal breath sounds, CTA, No accessory muscle use Cardiovascular: S1, S2, No murmur Abdomen/GI:Soft, Non tender, Bowel sounds present Back: Surgical site Extremities/Musculoskeletal:normal inspection, no edema Neurologic/Psych: Alert, awake, oriented X2, grossly no focal deficits Skin: normal color, warm Results & Data Results & Data Vital Signs (Past 12 Hours) Vital Signs Temp Pulse Resp BP Pulse Ox 02/16/23 13:01 101 H 16 97 02/16/23 13:01 141/84 H 02/16/23 13:00 100 H 21 98 02/16/23 12:00 94 H 17 98 02/16/23 12:00 147/122 H 02/16/23 11:30 89 14 98 02/16/23 12:13 36.8 C 02/16/23 08:00 37.2 C 02/16/23 11:00 90 19 99 02/16/23 10:01 94 H 15 98 02/16/23 10:01 142/88 H 02/16/23 10:00 97 H 15 98 02/16/23 09:01 99 H 18 97 02/16/23 09:01 113/73 02/16/23 09:00 98 H 19 96 02/16/23 08:02 116 H 13 95 10/12/23 08:02 165/96 H 02/16/23 08:00 107 H 20 96 02/16/23 07:00 93 H 19 94 02/16/23 07:00 177/97 H 02/16/23 06:30 90 17 94 02/16/23 06:00 87 17 159/85 H 95 02/16/23 05:30 89 95 02/16/23 05:01 95 H 178/100 H 96 02/16/23 05:00 97 02/16/23 04:30 92 H 96 02/16/23 04:00 96 H 13 94 02/16/23 05:03 36.8 C 02/16/23 03:30 93 H 17 92 Laboratory Results Short CBC 02/16/23 Range/Units 04:11 WBC 7.20 (4.8-10.8) K/ul Hgb 12.1 L (14.0-18.0) g/dl Hct 33.7 L (42.0-52.0) % Plt Count 307 (130-400) K/uL BMP 02/16/23 04:11 Sodium 137 Potassium 4.0 Chloride 102 Carbon Dioxide 25 BUN 10 Creatinine 0.70 Glucose 81 Calcium 9.1
--- NOTE | 2023-02-16 15:18 | Communication Note ---
Date of Service: February 16, 2023 Urinary retention Urology consulted Plan to continue Devi catheter for 1 week and then voiding trial Will consider starting on tamsulosin per Urology
[2023-02-16] MEDS: PANTOprazole 40 MG TAB PO SCH (20:19)
[2023-02-16] MEDS: LIDOCAINE 5% 1 PATCH TD SCH (20:21)
[2023-02-16] MEDS: traZODone HCL 100 MG TAB PO SCH (20:22)
[2023-02-16] MEDS: ATORVASTATIN 40 MG TAB PO SCH (20:23)
[2023-02-16] MEDS ORDERED: PHENobarbitaL 30 MG TAB PO SCH (21:00)
[2023-02-16] MEDS: DOCUSATE SODIUM/SENNA 50/8.6MG TAB PO SCH (21:08)
[2023-02-16] MEDS: METOPROLOL TARTRATE 25 MG TAB PO SCH (21:08)
[2023-02-17] MEDS: MoRPHine SULFATE 2 MG/ML CARP IV PRN ×2 (03:15→09:08)
[2023-02-17 06:21] LABS: Hematocrit (blood only) 31.7 % (42.0-52.0); Mean Corpuscular Hemoglobin 33.8 pg (25.0-34.0); Mean Corpuscular Hgb Conc 34.7 g/dL (32.0-36.0); Mean Corpuscular Volume 97.5 fL (80.0-100.0); Mean Platelet Volume 9.4 fL (9.4-12.4); Platelet Count 315 K/uL (130-400); RDW Coefficient of Variation 12.1 % (11.5-14.5); RDW Standard Deviation 43.6 fL (36.4-46.3); Red Blood Count 3.25 M/uL (4.70-6.10); White Blood Count 6.16 K/ul (4.8-10.8)
[2023-02-17 06:22] LABS: BUN Creatinine Ratio 14.9 (10-20); Calcium 8.7 mg/dl (8.6-10.3); Creatinine Clr Calc Pharmacy 107.4 ml/min; Est GFR (African American) 113.6 ml/min; Magnesium 1.6 mg/dl (1.7-2.4); Phosphorus 3.1 mg/dl (2.5-4.9); Potassium 3.4 mmol/L (3.5-5.1)
[2023-02-17] MEDS: THIAMINE HCL 100 MG TAB PO SCH (09:00)
[2023-02-17] MEDS: FOLIC ACID 1 MG TAB PO SCH (09:00)
[2023-02-17] MEDS: METOPROLOL TARTRATE 25 MG TAB PO SCH ×2 (09:00→20:49)
[2023-02-17] MEDS: MULTI VIT W/MINERALS LIQUID 15 ML UDP NG SCH ×2 (09:00→09:18)
[2023-02-17] MEDS: busPIRone 15 MG TAB PO SCH ×3 (09:00→20:48)
[2023-02-17] MEDS: lisinopril 40 MG TAB PO SCH (09:00)
[2023-02-17] MEDS: PANTOprazole 40 MG TAB PO SCH ×2 (09:00→20:47)
[2023-02-17] MEDS: POLYETHYLENE (MIRALAX) 17 GM PACK PO SCH (09:01)
[2023-02-17] MEDS ORDERED: POTASSIUM CHLORIDE CRTAB 20 MEQ TABCR PO ONE (09:23)
[2023-02-17] MEDS: MAGNESIUM CHLORIDE W/CALCIUM 64MG DELAYED REL TAB PO SCH (10:33)
[2023-02-17] MEDS: CEROVITE ADV FORMULA TAB PO SCH (10:33)
[2023-02-17] MEDS: ENOXAPARIN INJ 40 MG/0.4 ML SYR SQ SCH (11:30)
[2023-02-17] MEDS: oxyCODONE HCL IR 5 MG TAB (IMMEDIATE RELEASE) PO PRN ×2 (13:46→20:46)
--- NOTE | 2023-02-17 16:43 | Hospitalist Progress Note ---
Date of Service February 17, 2023 Assessment & Plan (1) Thoracic radiculopathy: Plan: Patient presenting for evaluation of back pain, right foot drop, bilateral leg weakness and numbness. Outpatient thoracic MRI from 01/27 -at T10/11, there is a broad-based midline disc protrusion measuring 4 mm in diameter causing moderate flattening of the cord. There is severe spinal canal stenosis secondary to the protrusion and bilateral facet osteoarthritis. Myelopathy concurrent with and due to spinal stenosis of thoracic region --Lumbar spine MRI:Multilevel degenerative changes are seen. There is up to severe left and moderate right bilateral neural foraminal stenosis. Mild canal stenosis is seen. Partially visualized, there appears to be significant canal or neural foraminal stenosis in the lower thoracic spine most prominently at T10 -T11. If there is concern for spinal cord impingement, dedicated thoracic spine MRI can be performed. S/P Decompression and fusion T10-T12 by on 02/03/23 Pain controlled-we will switch IV pain meds to p.o.; continue bowel regimen Seen by physical therapy-recommended rehab. (2) Alcohol withdrawal: Plan: Acute metabolic encephalopathy due to alcohol withdrawal-resolved, back to baseline --CT Head:Motion degraded exam without acute intracranial abnormality. Alcohol withdrawal with DT- S/P Intubation 02/12/23 S/P Extubation on 02/14/23 Status post phenobarbital tapering course for withdrawal. On thiamine, folic acid Infectious work-up negative. Moved out of ICU 02/16/13 Currently AAOx3 and not in withdrawal anymore Hypophosphatemia-resolved with treatment Hypomagnesemia-mild, repleted, recheck in a.m. Hypokalemia-mild, repleted, recheck in a.m. (3) Ileus: Plan: --CT ABD:Multiple gas-distended loops of large bowel are seen. No small bowel obstruction is seen. Resolved, tolerating diet well, having regular bowel movements (4) HTN (hypertension): Plan: Chronic, stable. Continue lisinopril, metoprolol (5) Anxiety: Plan: Resume home medications as able (6) Depression: Plan: Chronic, stable. On trazodone, BuSpar (7) Allergic rhinitis: Plan: Follows with allergy and receives immunotherapy injections. Prior hospitalist discussed with Lizzy Child PA-C -- due for injection on 02/11. Office will not transport serum to hospital for administration and do not recommend injection while acutely ill. Outpatient follow up. (8) HLD (hyperlipidemia): Plan: Chronic, stable Continue statin DVT Px: Lovenox SQ Disposition: PT recommends rehab, awaiting placement. Patient is stable for transfer to rehab. Admission and Anticipated Discharge Date Admission Date: February 01, 2023 Subjective Patient was seen and examined at bedside. He feels better today. His appetite is improved today and he had a decent meal. Pain is controlled with pain medications. Bowel movement today. No fever, chills, chest pain, shortness of breath no nausea or vomiting. Review of Systems Review of Systems: All systems reviewed & are unremarkable except as noted in Subjective Physical Exam Physical Exam: General: Lying comfortably in bed, not in distress, on room air HEENT: EOMI, REBECCA, MMM Chest: Clear breath sounds bilaterally, no wheezes or crackles CVS: Regular rate and rhythm, normal heart sounds, no murmur Abdomen: Soft, non tender, not distended, normal bowel sounds Neuro: Awake, alert, oriented, conversing well, non focal Extremities: No cyanosis, clubbing or edema : On Salmeron catheter with clear urine in salmeron bag Results & Data Results & Data Vital Signs (Past 12 Hours) Vital Signs Temp Pulse Pulse Resp BP Pulse Ox O2 Del Method 02/17/23 11:55 37.0 C 74 21 131/77 95 Room Air 02/17/23 09:46 Room Air 02/17/23 07:52 37.4 C 86 17 146/84 H 95 Room Air 02/17/23 07:33 74 Laboratory Results Short CBC 02/17/23 Range/Units 05:51 WBC 6.16 (4.8-10.8) K/ul Hgb 11.0 L (14.0-18.0) g/dl Hct 31.7 L (42.0-52.0) % Plt Count 315 (130-400) K/uL BMP 02/17/23 05:51 Sodium 137 Potassium 3.4 L Chloride 104 Carbon Dioxide 28 BUN 10 Creatinine 0.67 Glucose 101 H Calcium 8.7 Medications Administered Current Inpatient Medications Acetaminophen (Acetaminophen 325 Mg Tab) 650 mg PO Q6H PRN PRN Reason: MILD Pain Scale 1,2,3 & Pre PT Stop: 03/05/23 16:10 Last Admin: 02/16/23 19:53 Dose: 650 mg Al Hydrox/Mg Hydrox/Simethicone (Aluminum/Magnesium Susp 30 Ml Udc) 30 ml PO Q6H PRN PRN Reason: Dyspepsia Stop: 03/05/23 16:10 Atorvastatin Calcium (Atorvastatin 40 Mg Tab) 40 mg PO HS YOBANI Stop: 03/03/23 20:59 Last Admin: 02/16/23 20:23 Dose: 40 mg Baclofen (Baclofen 10 Mg Tab) 10 mg PO TID PRN PRN Reason: Muscle Spasm Stop: 03/03/23 17:35 Bisacodyl (Bisacodyl 10 Mg Supp) 10 mg [place] DAILY PRN PRN Reason: Constipation Stop: 03/05/23 16:10 Last Admin: 02/06/23 07:49 Dose: 10 mg Buspirone HCl (Buspirone 15 Mg Tab) 15 mg PO TID YOBANI Stop: 03/03/23 20:59 Last Admin: 02/17/23 13:43 Dose: 15 mg Desonide (Desonide Cr 15 Gm Tube) 1 appln EXT BID PRN PRN Reason: psoriasis Stop: 03/12/23 13:37 Enoxaparin Sodium (Enoxaparin Inj 40 Mg/0.4 Ml Syr) 40 mg SQ Q24H YOBANI Stop: 03/14/23 11:59 Last Admin: 02/17/23 11:30 Dose: 40 mg Folic Acid (Folic Acid 1 Mg Tab) 1 mg PO DAILY YOBANI Stop: 03/15/23 08:59 Last Admin: 02/17/23 09:00 Dose: 1 mg Hydrocortisone (Hydrocortisone 2.5% Cr 30 Gm Tube) 1 appln EXT BID PRN PRN Reason: Itching Stop: 03/12/23 13:37 Promethazine HCl 12.5 mg/ (Sodium Chloride) 50.5 mls @ 202 mls/hr IV Q6H PRN PRN Reason: Nausea &/or Vomiting Stop: 03/05/23 16:10 Influenza Virus Vaccine Quadrival (Do Not Administer Flu Vaccine) 1 each N/A PRN PRN PRN Reason: Notification Stop: 03/05/23 16:10 Lidocaine (Lidocaine 5% 1 Patch) 1 patch TD HS YOBANI Stop: 03/12/23 22:54 Last Admin: 02/16/23 20:21 Dose: 1 patch [place]inopril ([facility] 40 Mg Tab) [facility] [place]: 03/04/23 08:59 Last Admin: 02/17/23 09:00 Dose: 40 mg Magnesium Chloride (Magnesium Chloride W/Calcium 64mg Delayed Rel Tab) 64 mg PO QAM [facility] Stop: 03/19/23 09:29 Last Admin: 02/17/23 10:33 Dose: 64 mg Magnesium Hydroxide (Magnesium Hydroxide Susp 30 Ml Udc) 30 ml PO Q24H PRN PRN Reason: Constipation Stop: 03/05/23 16:10 Last Admin: 02/05/23 17:08 Dose: 30 ml Metoclopramide HCl (Metoclopramide Hcl Inj 5 Mg/Ml 2 Ml Vial) 10 mg IV Q6H PRN PRN Reason: Nausea &/or Vomiting Stop: 03/05/23 16:10 Metoprolol Tartrate (Metoprolol Tartrate 25 Mg Tab) 25 mg PO BID [facility] Stop: 03/03/23 20:59 Last Admin: 02/17/23 09:00 Dose: 25 mg Metoprolol Tartrate (Metoprolol Tartrate 1 Mg/Ml Vial) 5 mg IV Q6H PRN PRN Reason: SBP > 140mmHG Stop: 03/13/23 10:11 Last Admin: 02/11/23 13:20 Dose: 5 mg Miscellaneous (Remove Lidoderm Patch) 1 each N/A DAILY@0900 [facility] Stop: 03/13/23 08:59 Last Admin: 02/17/23 09:00 Dose: 1 each Multivitamins/Minerals (Cerovite Adv Formula Tab) [facility] [place] [facility] [place] 03/19/23 09:24 Last Admin: 02/17/23 10:33 Dose: 1 tab Naloxone HCl (Naloxone Hcl 0.4 Mg/1 Ml Vial/Carp) 0.1 mg IV Q5M PRN PRN Reason: Oversedation/Resp depression Stop: 03/05/23 16:10 Tacrolimis 0.1% Ointment: Non- Formulary Pt's Own Med 1 each TOP BID PRN PRN Reason: FLARES Stop: 03/12/23 14:50 Ondansetron HCl (Ondansetron Inj 2 Mg/Ml 2 Ml Vial) 4 mg IV Q6H PRN PRN Reason: Nausea &/or Vomiting Stop: 03/05/23 16:10 Oxycodone HCl (Oxycodone Hcl Ir 5 Mg Tab (Immediate Release)) 5 mg PO Q4 PRN PRN Reason: Mod-Sev Pain (Scale 4-10) Stop: 03/03/23 09:21 Last Admin: 02/17/23 13:46 Dose: 5 mg Pantoprazole Sodium (Pantoprazole 40 Mg Tab) 40 mg PO BID [facility] Stop: 03/18/23 20:59 Last Admin: 02/17/23 09:00 Dose: 40 mg Pneumococcal Polyvalent Vaccine (Do Not Administer Pneumococcal Vaccine) 1 each N/A PRN PRN PRN Reason: Notification Stop: 03/05/23 16:10 Polyethylene Glycol (Polyethylene (Miralax) 17 Gm Pack) 17 gm PO DAILY [facility] Stop: 03/10/23 08:59 Last Admin: 02/17/23 09:01 Dose: Not Given Senna/Docusate Sodium (Docusate Sodium/Senna 50/8.6mg Tab) 2 tab PO HS [facility] Stop: 03/03/23 20:59 Last Admin: 02/16/23 21:08 Dose: 2 tab Sodium Biphosphate/Sodium Phosphate (Sod Phosphate/Sod Biphosphate Enema 132 Ml Btl) 132 ml UT ONE PRN PRN Reason: Constipation Stop: 03/05/23 16:10 Thiamine HCl (Thiamine Hcl 100 Mg Tab) 100 mg PO DAILY [facility] Stop: 03/15/23 08:59 Last Admin: 02/17/23 09:00 Dose: 100 mg Trazodone HCl (Trazodone Hcl 100 Mg Tab) 100 mg PO HS [facility] Stop: 03/03/23 20:59 Last Admin: 02/16/23 20:22 Dose: 100 mg
[2023-02-17] MEDS: ATORVASTATIN 40 MG TAB PO SCH (20:48)
[2023-02-17] MEDS: traZODone HCL 100 MG TAB PO SCH (20:48)
[2023-02-17] MEDS: DOCUSATE SODIUM/SENNA 50/8.6MG TAB PO SCH (20:49)
[2023-02-17] MEDS: LIDOCAINE 5% 1 PATCH TD SCH (20:50)
[2023-02-18] MEDS: oxyCODONE HCL IR 5 MG TAB (IMMEDIATE RELEASE) PO PRN ×4 (06:12→21:06)
[2023-02-18 08:37] LABS: BUN Creatinine Ratio 15.9 (10-20); Calcium 9.2 mg/dl (8.6-10.3); Creatinine Clr Calc Pharmacy 104.3 ml/min; Est GFR (African American) 112.3 ml/min; Est GFR (Non-African American) 96.9 ml/min; Magnesium 1.5 mg/dl (1.7-2.4); Phosphorus 3.4 mg/dl (2.5-4.9)
[2023-02-18 08:42] LABS: Hematocrit (blood only) 33.5 % (42.0-52.0); Hemoglobin 11.6 g/dl (14.0-18.0); Mean Corpuscular Hemoglobin 33.8 pg (25.0-34.0); Mean Corpuscular Hgb Conc 34.6 g/dL (32.0-36.0); Mean Corpuscular Volume 97.7 fL (80.0-100.0); Mean Platelet Volume 9.4 fL (9.4-12.4); Platelet Count 325 K/uL (130-400); RDW Coefficient of Variation 12.4 % (11.5-14.5); RDW Standard Deviation 44.8 fL (36.4-46.3); Red Blood Count 3.43 M/uL (4.70-6.10)
[2023-02-18] MEDS: METOPROLOL TARTRATE 25 MG TAB PO SCH ×2 (09:24→21:08)
[2023-02-18] MEDS: CEROVITE ADV FORMULA TAB PO SCH (09:24)
[2023-02-18] MEDS: lisinopril 40 MG TAB PO SCH (09:24)
[2023-02-18] MEDS: MAGNESIUM CHLORIDE W/CALCIUM 64MG DELAYED REL TAB PO SCH (09:24)
[2023-02-18] MEDS: THIAMINE HCL 100 MG TAB PO SCH (09:24)
[2023-02-18] MEDS: busPIRone 15 MG TAB PO SCH ×3 (09:24→21:08)
[2023-02-18] MEDS: PANTOprazole 40 MG TAB PO SCH ×2 (09:24→21:07)
[2023-02-18] MEDS: FOLIC ACID 1 MG TAB PO SCH (09:24)
[2023-02-18] MEDS: POLYETHYLENE (MIRALAX) 17 GM PACK PO SCH (09:25)
[2023-02-18] MEDS: ACETAMINOPHEN 325 MG TAB PO PRN ×2 (09:28→17:24)
[2023-02-18] MEDS ORDERED: MAGNESIUM SULFATE / D5W 1 GM/100 ML BAG IV ONE (12:20)
--- NOTE | 2023-02-18 12:21 | Hospitalist Progress Note ---
Date of Service February 18, 2023 Assessment & Plan (1) Thoracic radiculopathy: Plan: Patient presenting for evaluation of back pain, right foot drop, bilateral leg weakness and numbness. Outpatient thoracic MRI from 01/27 -at T10/11, there is a broad-based midline disc protrusion measuring 4 mm in diameter causing moderate flattening of the cord. There is severe spinal canal stenosis secondary to the protrusion and bilateral facet osteoarthritis. Myelopathy concurrent with and due to spinal stenosis of thoracic region --Lumbar spine MRI:Multilevel degenerative changes are seen. There is up to severe left and moderate right bilateral neural foraminal stenosis. Mild canal stenosis is seen. Partially visualized, there appears to be significant canal or neural foraminal stenosis in the lower thoracic spine most prominently at T10 -T11. If there is concern for spinal cord impingement, dedicated thoracic spine MRI can be performed. S/P Decompression and fusion T10-T12 by on 02/03/23 Pain controlled with tylenol and oxy prn. Continue along with bowel regimen Seen by physical therapy-recommended rehab. Wants to go to [facility]. Will need insurance auth per CM. (2) Alcohol withdrawal: Plan: Acute metabolic encephalopathy due to alcohol withdrawal-resolved, back to baseline --CT Head:Motion degraded exam without acute intracranial abnormality. Alcohol withdrawal with DT- S/P Intubation 02/12/23 S/P Extubation on 02/14/23 Status post phenobarbital tapering course for withdrawal. On thiamine, folic acid Infectious work-up negative. Moved out of ICU 02/16/13 Currently AAOx3 and not in withdrawal anymore Hypophosphatemia-resolved Hypomagnesemia- Repleted and also continue po supplementation. Recheck in am Hypokalemia- resolved (3) Ileus: Plan: --CT ABD:Multiple gas-distended loops of large bowel are seen. No small bowel ob struction is seen. Resolved, tolerating diet well, having regular bowel movements (4) HTN (hypertension): Plan: Chronic, stable. Continue lisinopril, metoprolol (5) Anxiety: Plan: Resume home medications as able (6) Depression: Plan: Chronic, stable. On trazodone, BuSpar (7) Allergic rhinitis: Plan: Follows with allergy and receives immunotherapy injections. Prior hospitalist discussed with Lizzy Child PA-C -- due for injection on 02/11. Office will not transport serum to hospital for administration and do not recommend injection while acutely ill. Outpatient follow up. (8) HLD (hyperlipidemia): Plan: Chronic, stable Continue statin DVT Px: Lovenox SQ Disposition: PT recommends rehab, awaiting placement. Patient is stable for transfer to rehab. Admission and Anticipated Discharge Date Admission Date: February 01, 2023 Subjective Patient was seen and examined at bedside. He continues to feel better. Pain is controlled. He states he does not want to get hooked to opiates and would like to see how his pain is with Tylenol. No fever, chills, chest pain or shortness of breath, nausea or vomiting. He is looking forward to going to the rehab. Review of Systems Review of Systems: All systems reviewed & are unremarkable except as noted in Subjective Physical Exam Physical Exam: General: Lying comfortably in bed, not in distress, on room air HEENT: EOMI, REBECCA, MMM Chest: Clear breath sounds bilaterally, no wheezes or crackles CVS: Regular rate and rhythm, normal heart sounds, no murmur Abdomen: Soft, non tender, not distended, normal bowel sounds Neuro: Awake, alert, oriented, conversing well, non focal Skin: Back incision well healed Extremities: No cyanosis, clubbing or edema : On Salmeron catheter with clear urine in salmeron bag Results & Data Results & Data Vital Signs (Past 12 Hours) Vital Signs Temp Pulse Pulse Resp BP Pulse Ox O2 Del Method 02/18/23 09:48 Room Air 02/18/23 08:14 37.1 C 83 20 123/72 95 Room Air 02/18/23 07:47 89 02/18/23 03:38 36.9 C 68 18 121/74 94 Room Air Laboratory Results Short CBC 02/18/23 Range/Units 07:55 WBC 7.10 (4.8-10.8) K/ul Hgb 11.6 L (14.0-18.0) g/dl Hct 33.5 L (42.0-52.0) % Plt Count 325 (130-400) K/uL BMP 02/18/23 07:55 Sodium 139 Potassium 4.0 Chloride 105 Carbon Dioxide 29 BUN 11 Creatinine 0.69 Glucose 116 H Calcium 9.2 Medications Administered Current Inpatient Medications Acetaminophen (Acetaminophen 325 Mg Tab) 650 mg PO Q6H PRN PRN Reason: MILD Pain Scale 1,2,3 & Pre PT Stop: 03/05/23 16:10 Last Admin: 02/18/23 09:28 Dose: 650 mg Al Hydrox/Mg Hydrox/Simethicone (Aluminum/Magnesium Susp 30 Ml Udc) 30 ml PO Q6H PRN PRN Reason: Dyspepsia Stop: 03/05/23 16:10 Atorvastatin Calcium (Atorvastatin 40 Mg Tab) 40 mg PO HS YOBANI Stop: 03/03/23 20:59 Last Admin: 02/17/23 20:48 Dose: 40 mg Baclofen (Baclofen 10 Mg Tab) 10 mg PO TID PRN PRN Reason: Muscle Spasm Stop: 03/03/23 17:35 Bisacodyl (Bisacodyl 10 Mg Supp) 10 mg [place] DAILY PRN PRN Reason: Constipation Stop: 03/05/23 16:10 Last Admin: 02/06/23 07:49 Dose: 10 mg Buspirone HCl (Buspirone 15 Mg Tab) 15 mg PO TID YOBANI Stop: 03/03/23 20:59 Last Admin: 02/18/23 09:24 Dose: 15 mg Desonide (Desonide Cr 15 Gm Tube) 1 appln EXT BID PRN PRN Reason: psoriasis Stop: 03/12/23 13:37 Enoxaparin Sodium (Enoxaparin Inj 40 Mg/0.4 Ml Syr) 40 mg SQ Q24H YOBANI Stop: 03/14/23 11:59 Last Admin: 02/17/23 11:30 Dose: 40 mg Folic Acid (Folic Acid 1 Mg Tab) 1 mg PO DAILY YOBANI Stop: 03/15/23 08:59 Last Admin: 02/18/23 09:24 Dose: 1 mg Hydrocortisone (Hydrocortisone 2.5% Cr 30 Gm Tube) 1 appln EXT BID PRN PRN Reason: Itching Stop: 03/12/23 13:37 Promethazine HCl 12.5 mg/ (Sodium Chloride) 50.5 mls @ 202 mls/hr IV Q6H PRN PRN Reason: Nausea &/or Vomiting Stop: 03/05/23 16:10 Influenza Virus Vaccine Quadrival (Do Not Administer Flu Vaccine) 1 each N/A PRN PRN PRN Reason: Notification Stop: 03/05/23 16:10 Lidocaine (Lidocaine 5% 1 Patch) 1 patch TD HS [facility] Stop: 03/12/23 22:54 Last Admin: 02/17/23 20:50 Dose: 1 patch Lisinopril (Lisinopril 40 Mg Tab) [facility] [place] Stop: 03/04/23 08:59 Last Admin: 02/18/23 09:24 Dose: 40 mg Magnesium Chloride (Magnesium Chloride W/Calcium 64mg Delayed Rel Tab) 64 mg PO QAM [facility] Stop: 03/19/23 09:29 Last Admin: 02/18/23 09:24 Dose: 64 mg Magnesium Hydroxide (Magnesium Hydroxide Susp 30 Ml Udc) 30 ml PO Q24H PRN PRN Reason: Constipation Stop: 03/05/23 16:10 Last Admin: 02/05/23 17:08 Dose: 30 ml Metoprolol Tartrate (Metoprolol Tartrate 25 Mg Tab) 25 mg PO BID [facility] Stop: 03/03/23 20:59 Last Admin: 02/18/23 09:24 Dose: 25 mg Miscellaneous (Remove Lidoderm Patch) 1 each N/A DAILY@0900 [facility] Stop: 03/13/23 08:59 Last Admin: 02/18/23 09:25 Dose: 1 each Multivitamins/Minerals (Cerovite Adv Formula Tab) 1 tab PO [facility] Stop: 03/19/23 09:24 Last Admin: 02/18/23 09:24 Dose: 1 tab Tacrolimis 0.1% Ointment: Non- Formulary Pt's Own Med 1 each TOP BID PRN PRN Reason: FLARES Stop: 03/12/23 14:50 Ondansetron HCl (Ondansetron Inj 2 Mg/Ml 2 Ml Vial) 4 mg IV Q6H PRN PRN Reason: Nausea &/or Vomiting Stop: 03/05/23 16:10 Oxycodone HCl (Oxycodone Hcl Ir 5 Mg Tab (Immediate Release)) 5 mg PO Q4 PRN PRN Reason: Mod-Sev Pain (Scale 4-10) Stop: 03/03/23 09:21 Last Admin: 02/18/23 10:57 Dose: 5 mg Pantoprazole Sodium (Pantoprazole 40 Mg Tab) 40 mg PO BID [facility] Stop: 03/18/23 20:59 Last Admin: 02/18/23 09:24 Dose: 40 mg Pneumococcal Polyvalent Vaccine (Do Not Administer Pneumococcal Vaccine) 1 each N/A PRN PRN PRN Reason: Notification Stop: 03/05/23 16:10 Polyethylene Glycol (Polyethylene (Miralax) 17 Gm Pack) 17 gm PO DAILY [facility] Stop: 03/10/23 08:59 Last Admin: 02/18/23 09:25 Dose: Not Given Senna/Docusate Sodium (Docusate Sodium/Senna 50/8.6mg Tab) 2 tab PO HS [facility] Stop: 03/03/23 20:59 Last Admin: 02/17/23 20:49 Dose: Not Given Sodium Biphosphate/Sodium Phosphate (Sod Phosphate/Sod Biphosphate Enema 132 Ml Btl) 132 ml [place] ONE PRN PRN Reason: Constipation Stop: 03/05/23 16:10 Thiamine HCl (Thiamine Hcl 100 Mg Tab) 100 mg PO DAILY [facility] Stop: 03/15/23 08:59 Last Admin: 02/18/23 09:24 Dose: 100 mg Trazodone HCl (Trazodone Hcl 100 Mg Tab) 100 mg PO HS [facility] Stop: 03/03/23 20:59 Last Admin: 02/17/23 20:48 Dose: 100 mg
[2023-02-18] MEDS: ENOXAPARIN INJ 40 MG/0.4 ML SYR SQ SCH (12:27)
[2023-02-18] MEDS ORDERED: guaiFENesin/DEXTROM SYRUP 100MG/10MG 5ML UDC PO PRN (12:37)
[2023-02-18] MEDS: LIDOCAINE 5% 1 PATCH TD SCH (21:06)
[2023-02-18] MEDS: traZODone HCL 100 MG TAB PO SCH (21:08)
[2023-02-18] MEDS: DOCUSATE SODIUM/SENNA 50/8.6MG TAB PO SCH (21:09)
[2023-02-18] MEDS: ATORVASTATIN 40 MG TAB PO SCH (21:09)
[2023-02-19] MEDS: busPIRone 15 MG TAB PO SCH ×3 (08:10→21:10)
[2023-02-19] MEDS: PANTOprazole 40 MG TAB PO SCH ×2 (08:11→21:09)
[2023-02-19] MEDS: MAGNESIUM CHLORIDE W/CALCIUM 64MG DELAYED REL TAB PO SCH (08:11)
[2023-02-19] MEDS: lisinopril 40 MG TAB PO SCH (08:11)
[2023-02-19] MEDS: CEROVITE ADV FORMULA TAB PO SCH (08:12)
[2023-02-19] MEDS: FOLIC ACID 1 MG TAB PO SCH (08:12)
[2023-02-19] MEDS: THIAMINE HCL 100 MG TAB PO SCH (08:12)
[2023-02-19] MEDS: METOPROLOL TARTRATE 25 MG TAB PO SCH ×2 (08:13→21:09)
[2023-02-19] MEDS: ACETAMINOPHEN 325 MG TAB PO PRN ×2 (08:18→21:08)
[2023-02-19] MEDS: POLYETHYLENE (MIRALAX) 17 GM PACK PO SCH (08:18)
[2023-02-19 08:42] LABS: Calcium 8.7 mg/dl (8.6-10.3); Magnesium 1.5 mg/dl (1.7-2.4); Potassium 3.7 mmol/L (3.5-5.1)
[2023-02-19 08:47] LABS: BUN Creatinine Ratio 20.3 (10-20); Creatinine Clr Calc Pharmacy 112.5 ml/min; Est GFR (African American) 115.8 ml/min; Est GFR (Non-African American) 99.9 ml/min; Phosphorus 3.4 mg/dl (2.5-4.9)
[2023-02-19] MEDS: ENOXAPARIN INJ 40 MG/0.4 ML SYR SQ SCH (11:15)
[2023-02-19] MEDS ORDERED: MAGNESIUM SULFATE / D5W 1 GM/100 ML BAG IV ONE (11:25)
--- NOTE | 2023-02-19 11:27 | Hospitalist Progress Note ---
Date of Service February 19, 2023 Assessment & Plan (1) Thoracic radiculopathy: Plan: Patient presenting for evaluation of back pain, right foot drop, bilateral leg weakness and numbness. Outpatient thoracic MRI from 01/27 -at T10/11, there is a broad-based midline disc protrusion measuring 4 mm in diameter causing moderate flattening of the cord. There is severe spinal canal stenosis secondary to the protrusion and bilateral facet osteoarthritis. Myelopathy concurrent with and due to spinal stenosis of thoracic region --Lumbar spine MRI:Multilevel degenerative changes are seen. There is up to severe left and moderate right bilateral neural foraminal stenosis. Mild canal stenosis is seen. Partially visualized, there appears to be significant canal or neural foraminal stenosis in the lower thoracic spine most prominently at T10 -T11. If there is concern for spinal cord impingement, dedicated thoracic spine MRI can be performed. S/P Decompression and fusion T10-T12 by on 02/03/23 Pain controlled with tylenol and oxy prn. Continue along with bowel regimen Seen by physical therapy-recommended rehab. Awaiting bed availability at the rehab (2) Alcohol withdrawal: Plan: Acute metabolic encephalopathy due to alcohol withdrawal-resolved, back to baseline --CT Head:Motion degraded exam without acute intracranial abnormality. Alcohol withdrawal with DT- S/P Intubation 02/12/23 S/P Extubation on 02/14/23 Status post phenobarbital tapering course for withdrawal. On thiamine, folic acid Infectious work-up negative. Moved out of ICU 02/16/13 Currently AAOx3 and not in withdrawal anymore Hypophosphatemia-resolved Hypomagnesemia- Repleted and also continue po supplementation. Recheck in am Hypokalemia- resolved (3) Ileus: Plan: --CT ABD:Multiple gas-distended loops of large bowel are seen. No small bowel obstruction is seen. Resolved, tolerating diet well, having regular bowel movements (4) HTN (hypertension): Plan: Chronic, stable. Continue lisinopril, metoprolol (5) Anxiety: Plan: Resume home medications as able (6) Depression: Plan: Chronic, stable. On trazodone, BuSpar (7) Allergic rhinitis: Plan: Follows with allergy and receives immunotherapy injections. Prior hospitalist discussed with Lizzy Child PA-C -- due for injection on 02/11. Office will not transport serum to hospital for administration and do not recommend injection while acutely ill. Outpatient follow up. (8) HLD (hyperlipidemia): Plan: Chronic, stable Continue statin DVT Px: Lovenox SQ Disposition: PT recommends rehab, awaiting placement. Patient is stable for transfer to rehab. Admission and Anticipated Discharge Date Admission Date: February 01, 2023 Subjective Patient was seen and examined at bedside. He feels fine, no new issues. Pain is controlled. He is trying to stick with Tylenol as much as he can. He is ready to go to rehab. Review of Systems Review of Systems: All systems reviewed & are unremarkable except as noted in Subjective Physical Exam Physical Exam: General: Lying comfortably in bed, not in distress, on room air HEENT: EOMI, REBECCA, MMM Chest: Clear breath sounds bilaterally, no wheezes or crackles CVS: Regular rate and rhythm, normal heart sounds, no murmur Abdomen: Soft, non tender, not distended, normal bowel sounds Neuro: Awake, alert, oriented, conversing well, non focal Skin: Back incision well healed Extremities: No cyanosis, clubbing or edema : On Salmeron catheter with clear urine in salmeron bag Results & Data Results & Data Vital Signs (Past 12 Hours) Vital Signs Temp Pulse Pulse Resp BP Pulse Ox O2 Del Method 02/19/23 08:00 37.1 C 79 18 138/74 96 Room Air 02/19/23 08:09 73 118/75 Laboratory Results [facility] 02/19/23 06:25 Sodium 140 Potassium 3.7 Chloride 108 H Carbon Dioxide 26 BUN 13 Creatinine 0.64 Glucose 100 H Calcium 8.7 Medications Administered Current Inpatient Medications Acetaminophen (Acetaminophen 325 Mg Tab) 650 mg PO Q6H PRN PRN Reason: MILD Pain Scale 1,2,3 & Pre PT Stop: 03/05/23 16:10 Last Admin: 02/19/23 08:18 Dose: 650 mg Al Hydrox/Mg Hydrox/Simethicone (Aluminum/Magnesium Susp 30 Ml Udc) 30 ml PO Q6H PRN PRN Reason: Dyspepsia Stop: 03/05/23 16:10 Atorvastatin Calcium (Atorvastatin 40 Mg Tab) 40 mg PO HS YOBANI Stop: 03/03/23 20:59 Last Admin: 02/18/23 21:09 Dose: 40 mg Baclofen (Baclofen 10 Mg Tab) 10 mg PO TID PRN PRN Reason: Muscle Spasm Stop: 03/03/23 17:35 Bisacodyl (Bisacodyl 10 Mg Supp) 10 mg MO DAILY PRN PRN Reason: Constipation Stop: 03/05/23 16:10 Last Admin: 02/06/23 07:49 Dose: 10 mg Buspirone HCl (Buspirone 15 Mg Tab) 15 mg PO TID [facility] Stop: 03/03/23 20:59 Last Admin: 02/19/23 08:10 Dose: 15 mg Desonide (Desonide Cr 15 Gm Tube) 1 appln EXT BID PRN PRN Reason: psoriasis Stop: 03/12/23 13:37 Enoxaparin Sodium (Enoxaparin Inj 40 Mg/0.4 Ml Syr) 40 mg SQ Q24H [facility] Stop: 03/14/23 11:59 Last Admin: 02/19/23 11:15 Dose: 40 mg Folic Acid (Folic Acid 1 Mg Tab) 1 mg PO DAILY [facility] Stop: 03/15/23 08:59 Last Admin: 02/19/23 08:12 Dose: 1 mg Guaifenesin/Dextromethorphan (Guaifenesin/Dextrom Syrup 100mg/10mg 5ml Udc) 5 ml PO Q6H PRN PRN Reason: Cough Stop: 03/20/23 12:36 Last Admin: 02/18/23 12:59 Dose: 5 ml Hydrocortisone (Hydrocortisone 2.5% Cr 30 Gm Tube) 1 appln EXT BID PRN PRN Reason: Itching Stop: 03/12/23 13:37 Promethazine HCl 12.5 mg/ (Sodium Chloride) 50.5 mls @ 202 mls/hr IV Q6H PRN PRN Reason: Nausea &/or Vomiting Stop: 03/05/23 16:10 Influenza Virus Vaccine Quadrival (Do Not Administer Flu Vaccine) 1 each N/A PRN PRN PRN Reason: Notification Stop: 03/05/23 16:10 Lidocaine (Lidocaine 5% 1 Patch) 1 patch TD HS [facility] Stop: 03/12/23 22:54 Last Admin: 02/18/23 21:06 Dose: 1 patch Lisinopril (Lisinopril 40 Mg Tab) 40 mg PO QAM [facility] Stop: 03/04/23 08:59 Last Admin: 02/19/23 08:11 Dose: 40 mg Magnesium Chloride (Magnesium Chloride W/Calcium 64mg Delayed Rel Tab) 64 mg PO QAM [facility] Stop: 03/19/23 09:29 Last Admin: 02/19/23 08:11 Dose: 64 mg Magnesium Hydroxide (Magnesium Hydroxide Susp 30 Ml Udc) 30 ml PO Q24H PRN PRN Reason: Constipation Stop: 03/05/23 16:10 Last Admin: 02/05/23 17:08 Dose: 30 ml Metoprolol Tartrate (Metoprolol Tartrate 25 Mg Tab) 25 mg PO BID [facility] Stop: 03/03/23 20:59 Last Admin: 02/19/23 08:13 Dose: 25 mg Miscellaneous (Remove Lidoderm Patch) 1 each N/A DAILY@0900 [facility] Stop: 03/13/23 08:59 Last Admin: 02/19/23 08:13 Dose: 1 each Multivitamins/Minerals (Cerovite Adv Formula Tab) 1 tab PO QAM [facility] Stop: 03/19/23 09:24 Last Admin: 02/19/23 08:12 Dose: 1 tab Tacrolimis 0.1% Ointment: Non- Formulary Pt's Own Med 1 each TOP BID PRN PRN Reason: FLARES Stop: 03/12/23 14:50 Ondansetron HCl (Ondansetron Inj 2 Mg/Ml 2 Ml Vial) 4 mg IV Q6H PRN PRN Reason: Nausea &/or Vomiting Stop: 03/05/23 16:10 Oxycodone HCl (Oxycodone Hcl Ir 5 Mg Tab (Immediate Release)) 5 mg PO Q4 PRN PRN Reason: Mod-Sev Pain (Scale 4-10) Stop: 03/03/23 09:21 Last Admin: 02/18/23 21:06 Dose: 5 mg Pantoprazole Sodium (Pantoprazole 40 Mg Tab) 40 mg PO BID [facility] Stop: 03/18/23 20:59 Last Admin: 02/19/23 08:11 Dose: 40 mg Pneumococcal Polyvalent Vaccine (Do Not Administer Pneumococcal Vaccine) 1 each N/A PRN PRN PRN Reason: Notification Stop: 03/05/23 16:10 Polyethylene Glycol (Polyethylene (Miralax) 17 Gm Pack) 17 gm PO DAILY [facility] Stop: 03/10/23 08:59 Last Admin: 02/19/23 08:18 Dose: 17 gm Senna/Docusate Sodium (Docusate Sodium/Senna 50/8.6mg Tab) 2 tab PO HS [facility] Stop: 03/03/23 20:59 Last Admin: 02/18/23 21:09 Dose: Not Given Sodium Biphosphate/Sodium Phosphate (Sod Phosphate/Sod Biphosphate Enema 132 Ml Btl) 132 ml MO ONE PRN PRN Reason: Constipation Stop: 03/05/23 16:10 Thiamine HCl (Thiamine Hcl 100 Mg Tab) 100 mg PO DAILY [facility] Stop: 03/15/23 08:59 Last Admin: 02/19/23 08:12 Dose: 100 mg Trazodone HCl (Trazodone Hcl 100 Mg Tab) 100 mg PO [facility] Stop: 03/03/23 20:59 Last Admin: 02/18/23 21:08 Dose: 100 mg
[2023-02-19] MEDS: oxyCODONE HCL IR 5 MG TAB (IMMEDIATE RELEASE) PO PRN (15:01)
[2023-02-19] MEDS: traZODone HCL 100 MG TAB PO SCH (21:10)
[2023-02-19] MEDS: DOCUSATE SODIUM/SENNA 50/8.6MG TAB PO SCH (21:10)
[2023-02-19] MEDS: LIDOCAINE 5% 1 PATCH TD SCH (21:11)
[2023-02-19] MEDS: ATORVASTATIN 40 MG TAB PO SCH (21:12)
[2023-02-20] MEDS: ACETAMINOPHEN 325 MG TAB PO PRN ×3 (06:13→21:47)
[2023-02-20 07:53] LABS: BUN Creatinine Ratio 15.6 (10-20); Creatinine Clr Calc Pharmacy 112.5 ml/min; Est GFR (African American) 115.8 ml/min; Est GFR (Non-African American) 99.9 ml/min; Magnesium 1.5 mg/dl (1.7-2.4)
[2023-02-20] MEDS: THIAMINE HCL 100 MG TAB PO SCH (07:57)
[2023-02-20] MEDS: lisinopril 40 MG TAB PO SCH (07:57)
[2023-02-20] MEDS: MAGNESIUM CHLORIDE W/CALCIUM 64MG DELAYED REL TAB PO SCH (07:58)
[2023-02-20] MEDS: METOPROLOL TARTRATE 25 MG TAB PO SCH ×2 (07:58→21:41)
[2023-02-20] MEDS: FOLIC ACID 1 MG TAB PO SCH (07:58)
[2023-02-20] MEDS: CEROVITE ADV FORMULA TAB PO SCH (07:59)
[2023-02-20] MEDS: busPIRone 15 MG TAB PO SCH ×3 (07:59→21:41)
[2023-02-20] MEDS: PANTOprazole 40 MG TAB PO SCH ×2 (07:59→21:42)
[2023-02-20] MEDS: POLYETHYLENE (MIRALAX) 17 GM PACK PO SCH (08:02)
--- NOTE | 2023-02-20 09:48 | Hospitalist Progress Note ---
Date of Service February 20, 2023 Assessment & Plan (1) Thoracic radiculopathy: Plan: Patient presenting for evaluation of back pain, right foot drop, bilateral leg weakness and numbness. Outpatient thoracic MRI from 01/27 -at T10/11, there is a broad-based midline disc protrusion measuring 4 mm in diameter causing moderate flattening of the cord. There is severe spinal canal stenosis secondary to the protrusion and bilateral facet osteoarthritis. Myelopathy concurrent with and due to spinal stenosis of thoracic region --Lumbar spine MRI:Multilevel degenerative changes are seen. There is up to severe left and moderate right bilateral neural foraminal stenosis. Mild canal stenosis is seen. Partially visualized, there appears to be significant canal or neural foraminal stenosis in the lower thoracic spine most prominently at T10 -T11. If there is concern for spinal cord impingement, dedicated thoracic spine MRI can be performed. S/P Decompression and fusion T10-T12 by on 02/03/23 Pain controlled with tylenol and oxy prn. Continue along with bowel regimen Seen by physical therapy-recommended rehab. Awaiting bed availability at the rehab (2) Alcohol withdrawal: Plan: Acute metabolic encephalopathy due to alcohol withdrawal-resolved, back to baseline --CT Head:Motion degraded exam without acute intracranial abnormality. Alcohol withdrawal with DT- S/P Intubation 02/12/23 S/P Extubation on 02/14/23 Status post phenobarbital tapering course for withdrawal. On thiamine, folic acid Infectious work-up negative. Moved out of ICU 02/16/13 Currently AAOx3 and not in withdrawal anymore Hypophosphatemia-resolved Hypomagnesemia- Repleted and also continue po supplementation. Recheck in am Hypokalemia- resolved (3) Ileus: Plan: --CT ABD:Multiple gas-distended loops of large bowel are seen. No small bowel obstruction is seen. Resolved, tolerating diet well, having regular bowel movements (4) HTN (hypertension): Plan: Chronic, stable. Continue lisinopril, metoprolol (5) Anxiety: Plan: Resume home medications as able (6) Depression: Plan: Chronic, stable. On trazodone, BuSpar (7) Allergic rhinitis: Plan: Follows with allergy and receives immunotherapy injections. Prior hospitalist discussed with Lizzy Child PA-C -- due for injection on 02/11. Office will not transport serum to hospital for administration and do not recommend injection while acutely ill. Outpatient follow up. (8) HLD (hyperlipidemia): Plan: Chronic, stable Continue statin DVT Px: Lovenox SQ Disposition: PT recommends rehab, awaiting placement. Patient is stable for transfer to rehab. Admission and Anticipated Discharge Date Admission Date: February 01, 2023 Subjective Pt states that he has been having pain but does not want to use the narcotic too much. Would like to discuss his use of tylenol, states that he would like it more frequently. Otherwise denied acute concerns such as N/V, abdominal pain, SOB, chest pain. Review of Systems Review of Systems: All systems reviewed & are unremarkable except as noted in Subjective Physical Exam Physical Exam: General: Alert, oriented. No acute distress Skin: scar noted on back Psych: Appropriate mood and affect Neuro: No gross deficits HEENT: NC/AT Chest: Nontender to palpation. CV: RRR Resp: Breath sounds clear bilaterally, no increased effort of breathing. Abdomen: Soft, nontender, nondistended. : salmeron in place Extremities: No edema in lower extremities bilaterally. Results & Data Results & Data Vital Signs (Past 12 Hours) Vital Signs Temp Pulse Resp BP Pulse Ox O2 Del Method 02/20/23 07:54 37.2 C 73 16 151/90 H 95 Room Air
[2023-02-20] MEDS: oxyCODONE HCL IR 5 MG TAB (IMMEDIATE RELEASE) PO PRN (10:23)
[2023-02-20] MEDS: ENOXAPARIN INJ 40 MG/0.4 ML SYR SQ SCH (13:32)
[2023-02-20] MEDS: MAGNESIUM SULFATE / D5W 1 GM/100 ML BAG IV SCH ×2 (17:10→19:59)
--- OUTSIDE RECORDS SUMMARY | 2023-02-20 21:35 | External Medical Summary | Summary of Care ---
Author Name Unknown Organization [facility] Address [address] [place] [address] Phone [phone] Care Team Providers Care International Trade Teacher Name Role Phone Armani Hough MD Primary Care Provider + [phone] Reason for Referral * Evaluate & Treat - Unlimited Visits (Within 3 days (urgent)) - Pending Review Specialty Diagnoses / Procedures Referred By Mame mckeon Referred To Contact Neuro/Ortho Surgery - Spine. / Neurological Surgery Diagnoses Thoracic disc disorder with myelopathy Lynn Hoover MD [address] [facility] [place] [id number] Referral ID Status Reason Start Date Expiration Date Visits Requested Visits Authorized [id number] Pending Review Specialty Services Required 01/31/[phone] Question Answer Referral Priority Within 3 days (urgent) Select spine region: Back - Thoracic/Lumbar Do you have any recent complete loss of bladder or bowel function? 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 MRI thoracic spine [address] shows abnormal signal T10-T11 at the site of severe spinal canal stenosis Encounter Details Date Type Department Care Team Description 01/31/2023 Telephone Neurology [facility] [place] [id number] Lynn Hoover MD [address] [facility] [place] [phone] Allergies No known active allergiesdocumented as of this encounter (statuses as of 02/01/2023) Medications Medication Sig Dispensed Refills Start Date End Date Status LISINOPRIL 40 MG PO TABSIndications:in am Take by mouth. Indications: in am 90 Tab 3 12/13/2011 Active VIAGRA 100 MG PO TABSIndications:Imp otence of organic origin one as needed 6 Tab 5 04/26/2013 Active BuPROPion HCl ER, SR, 200 MG TB12 Take 1 Tablet by mouth in the morning and 1 Tablet before bedtime. 1 twice daily. 0 05/26/2016 Active traZODone (DESYREL) 100 MG TabletIndications:P ersistent insomnia TAKE 1/2 TABLET DAILY AT BEDTIME 90 Tab 1 04/17/2017 Active Additional Information Patient taking differently: One at bedtime, Reported on 08/05/2022 Fluocinonide 0.05 % External CreamIndications:Al lergic contact dermatitis due to metals Apply to rash on the abdomen twice daily as needed for flares 30 g 0 04/21/2020 Active Baclofen 10 MG Oral Tablet (Lioresal) TAKE 2 TABLETS BY MOUTH IN THE MORNING AND 1 TABLET IN THE EVENING 270 Tab 1 11/02/2020 Active busPIRone HCl 15 MG Oral Tablet (Buspar) Take 15 Tablets by mouth in the morning and 15 Tablets at noon and 15 Tablets before bedtime. 0 08/07/2020 Active Metoprolol Tartrate 25 MG Oral Tablet (Lopressor)Indicati ons:Primary hypertension one pill twice a day 180 Tablet 1 06/28/2021 Active Additional Information Patient taking differently: 50 mg BID (.AM/PM), one pill twice a day, Reported on 08/05/2022 Omeprazole 20 MG Oral Capsule Delayed Release (PriLOSEC)Indicatio ns:Gastroesophageal reflux disease with esophagitis without hemorrhage Take by mouth 1 Capsule in the morning. 90 Capsule 1 06/28/2021 Active Hydrocortisone 2.5 % External OintmentIndications :Dermatitis Apply to rash on the face twice daily x 3-4 days, then 2-3 x's per week. 15 g 1 11/16/2021 Active Tacrolimus 0.1 % External Ointment (Protopic)Indicatio ns:Other psoriasis,Inverse psoriasis APPLY TO PSORIASIS ON THE GENITALS TWICE DAILY NEEDED FOR FLARES. 60 g 2 06/21/2022 Active Desonide 0.05 % External CreamIndications:Ot her psoriasis,Inverse psoriasis APPLY TO PINK PATCHES ON THE FACE TWICE DAILY NEEDED FOR FLARES OF PSORIASIS 15 g 3 07/18/2022 Active Aspirin 81 MG Oral Capsule One day 0 08/05/2022 Active Gabapentin 300 MG Oral Capsule (Neurontin)Indicati ons:Polyneuropathy Take 1 Capsule by mouth in the morning and 1 Capsule at noon and 1 Capsule before bedtime. 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 42 Tablet 0 01/31/2023 Active documented as of this encounter (statuses as of 02/01/2023) Active Problems Problem Noted Date Carpal tunnel syndrome of left wrist Overview: severe on EMG Hx of nonmelanoma skin cancer 03/16/2021 Overview: squamous cell carcinoma (R helix of ear 02/18), basal cell carcinoma (R chest 08/20, central lower back 03/26) CKD (chronic kidney disease), stage II 0 09/14/2020 Overview: EGFR 71 Trochanteric bursitis of right hip 06/10 Essential tremor 01/12/2018 Persistent insomnia 06/22/2015 Raynaud's syndrome 09/07/2006 ADVANCE DIRECTIVE INFORMATION 09/29/2005 Overview: No, Advance Directive brochure given to patient at prior appointment. 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 Gastroesophageal reflux disease with eso phagitis without hemorrhage 10/17/2001 Primary hypertension Tobacco use disorder Psoriasis Rosacea Hyperlipidemia LDL goal <130 documented as of this encounter (statuses as of 02/01/2023) Resolved Problems Problem Noted Date Resolved Date Rupture of hamstring tendon 05/26/201703/09 Overview: right History of basal cell carcinoma 10/02/2014 03/16/2021 Overview: right chest 09/2014 History of squamous cell carcinoma 08/26/2014 03/16/2021 Overview: right helix 02/18 Benign neoplasm of colon 10/15/2010 017 Overview: polyp x1, path shows adenomatous tissue repeat in 5 years Mixed dyslipidemia 04/28/2009 04/28/2009 Dyslipidemia, goal to be determined 04/27/2009 04/28/2009 Overview: Per Lipid Taxonomy. Essential and other specified forms of tremor 12/21/2012 PURE HYPERCHOLESTEROLEM 04/27/20 09 Overview: Per Lipid Taxonomy. 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 03/28/2019 documented as of this encounter (statuses as of 02/01/2023) Immunizations Name Administration Dates Next Due COVID-19 mRNA, LNP-s, No Pre serve, 2-Dose Series (Moderna) 08/10/2020,07/13/2020 Pneumococcal Conjugate Vacc, 13 Valent (Prevnar) 09/20/2018,12/18/2012 Pneumococcal Polysaccharide PPV23 (Pneumovax) 02/27/2020,03/01/2019,09/18/2013,12/18 Seasonal Influenza Virus Vac cine, Unspecified Formulation 03/08/2018 Seasonal Influenza, PF, 6 mo ns & Above, IM , (Flulaval) 02/08/2018 Seasonal Influenza, Quadriva lent Hd (Fluzone Hd) 01/19/2023,01/21/2022,02/12/2021 Seasonal Influenza, Quadriva lent, No Preserve, IM 03/01/2019,02/09/2017,01/15/2016,03/16 Seasonal Influenza, Split, I IV3, With Preserve, Inj 03/01/2019,01/07/2014,01/24/2013,02/15,02/17/2011,01/06/2010,05/08/2007 Seasonal Influenza, Trivalen t, Adjuvanted, 65+ yrs 02/27/2020 TD - Tetanus/Diptheria (ADULT) 07/06/2006 TDAP (age 10 and older)(Boostrix) 12/13/2011 Zoster Vaccine Recombinant (Shingrix) 12/16/2020 ,09/21/2020,03/30/2020 documented as of this encounter Social History Tobacco Use Types Packs/Day Years Used Date Smoking Tobacco: Former Cigarettes 0.3 40 Q uit: 05/26/2014 Smokeless Tobacco: Never Comments:quit for 10 years t hen restarted Alcohol Use Standard Drinks/Week Comments Yes 5 (1 standard drink = 0.6 oz pur e alcohol) occ Food Insecurity Answer Date Recorded Within the past 12 months, y ou worried that your food would run out before you got money to buy more. Never true 05/21/2019 Within the past 12 months, t he food you bought just didn't last and you didn't have money to get more. Never true 12/08/2022 Sex Assigned at Date Recorded Male 09/23/2021 11:58 AM EDT Job Start Date Occupation Industry Not on file Not on file Not on file documented as of this encounter Functional Status Functional Status Response Date of Assess ment Are you deaf or do you have serious difficulty h earing? No 05/26/2015 Are you blind or do you have serious difficulty seeing, even when wearing glasses? No 05/26/2015 Do you have serious difficul ty walking or climbing stairs? (5 years old or older) No 05/26/2015 Do you have difficulty dress ing or bathing? (5 years old or older) No 05/26/2015 Because of a physical, menta l, or emotional condition, do you have difficulty doing errands alone such as visiting a doctor s office or shopping? (15 years old or older) No 05/26/19 16 Cognitive Status Response Date of Assessm ent Because of a physical, menta l, or emotional condition, do you have serious difficulty concentrating, remembering, or making decisions? (5 years old or older Yes 05/26/2015 documented as of this encounter Miscellaneous Notes * Telephone Encounter - Evelyn Goldsmith LPN - 02/01/2023 9:13 AM EDT Talked to patient. He stated he has weakness, incontinence and trouble with his gait and that he can't go to the ER because he can't drive d/t these issues. Not calling ambulance. Said he will go at 3pm when his son can take him. Please advise. * Telephone Encounter - Lynn Hoover MD - 01/31/2023 4:17 PM EDT Tell patient that the MRI of his thoracic spine shows spinal cord compression in the lower thoracicspine by disc. He needs to see orthopedic spine surgery urgently. I will put in an urgent referral.Please advise the patient if he has any sudden change in weakness incontinence or gait he should present himself to the emergency room\ Frnak, I would like pt to see Dr Hendrickson documented in this encounter Plan of Treatment Upcoming Encounters Date Type Specialty Care Team Description 02/02/2023 Office Visit Neurology Lynn Hoover MD [address] [facility] [place] [id number] 02/23/2023 Office Visit Family Medicine Armani Hough MD [address] [place] [address] [place] [phone] 03/14/2023 NeuroDiagnostic Study Neurophysiology Lynn Hoover MD [address] [facility] [place] [id number] Scheduled Procedures Name Priority Associated Diagnoses Date/Ti me COLONOSCOPY FLEXIBLE PROXIMAL DIAGNOSTIC Recall History of colon polyps Scheduled Referrals Name Type Priority Associated Diagnoses Orde r Schedule SPINE SURGERY REFERRAL OP Referral Within 3 days (urgent) Thoracic disc disorder with myelopathy Ordered: 01/31/2023 Health Maintenance Due Date Last Done Comments AAA Screening 2018 05/30/2012 COVID-19 Vaccine (3 - Moderna risk series) 09/07/2020 08/10/2020, 07/13/2020 Depression Screening 12/08/2020 12/09/2019 COLONOSCOPY-EVERY 3 YRS AGES 18-100 02/11/2023 02/12/2020, 02/12/2020, 06/03/2016, Additional history exists GFR 01/24/2024 01/23/2023, 11/05, 07/04/2022, Additional history exists Albumin/Creatinine Ratio 06/28/2024 06/28/2021 Diabetes Screening 01/23/2026 01/23/2023, 0 11/18/2022, 01/23/2022, Additional history exists Lipid Panel 09/02/2027 09/01/2022, 06/09, 09/14/2020, Additional history exists DTaP,Tdap,and Td Vaccines (3 - Td or Tdap) 10/07/2032 10/07/2022, 12/13/2011, 07/06/2006 Pneumococcal Vaccine: 65+ Years Completed 02/27/2020, 03/01/2019, 09/20/2018, Additional history exists Zoster Vaccines Completed 12/16/2020, 09/05, 03/30/2020 Influenza Vaccine (FLU shot) Completed , 01/21/2022, 02/12/2021, Additional history exists GARDASIL-HPV IMMUNIZATION SERIES Aged Out No longer eligible based on patient's age to complete this topic Hepatitis B Aged Out No longer eligi ble based on patient's age to complete this topic MENINGOCOCCAL (MENACTRA/MENVEO) Aged Out No longer eligible based on patient's age to complete this topic documented as of this encounter Medical Devices Not on filedocumented as of this encounter Visit Diagnoses Diagnosis Thoracic disc disorder with myelopathy- Primary Intervertebral thoracic disc disorder with myelopathy, thoracic region documented in this encounter Care Teams International Trade Teacher Relationship Specialty Start Date End Date Armani Hough MD [address] [place] [address] [place] [id number] PCP - General Family Medicine 09/01/22 documented as of this encounter
--- OUTSIDE RECORDS SUMMARY | 2023-02-20 21:35 | External Medical Summary | Summary of Care ---
Author Name Unknown Organization [facility] Address [address] [place] [facility] [address] Phone [phone] Care Team Providers Care Sporting Goods Sales Associate Name Role Phone Armani Arreguin MD Primary Care Provider [phone] Reason for Visit * Reason Comments eRx-Medication Refill Encounter Details Date Type Department Care Team Description 01/29/2023 Refill Family Medicine [address] [address] Armani Arreguin MD [address] [place] [address] Hyperlipidemia LDL goal <130 Allergies No known active allergiesdocumented as of this encounter (statuses as of 01/30/2023) Medications Medication Sig Dispensed Refills Start Date End Date Status LISINOPRIL 40 MG PO TABSIndications:i n am Take by mouth. Indications: in am 90 Tab 3 12/13/2011 Active VIAGRA 100 MG PO TABSIndications:I mpotence of organic origin one as needed 6 Tab 5 04/26/2013 Active BuPROPion HCl ER, SR, 200 MG TB12 Take 1 Tablet by mouth in the morning and 1 Tablet before bedtime. 1 twice daily. 0 05/26/2016 Active traZODone (DESYREL) 100 MG TabletIndications :Persistent insomnia TAKE 1/2 TABLET DAILY AT BEDTIME 90 Tab 1 04/17/2017 Active Additional Information Patient taking differently: One at bedtime, Reported on 08/05/2022 Fluocinonide 0.05 % External CreamIndications: Allergic contact dermatitis due to metals Apply to [...] Active Metoprolol Tartrate 25 MG Oral Tablet (Lopressor)Indica tions:Primary hypertension one pill twice a day 180 Tablet 1 06/28/2021 Active Additional Information Patient taking differently: 50 mg BID (.AM/PM), one pill twice a day, Reported on 08/05/2022 Omeprazole 20 MG Oral Capsule Delayed Release (PriLOSEC)Indicat ions:Gastroesopha geal reflux disease with esophagitis without hemorrhage Take by mouth 1 Capsule in the morning. 90 Capsule 1 06/28/2021 Active Hydrocortisone 2.5 % External OintmentIndicatio ns:Dermatitis Apply to rash on the face twice daily x 3-4 days, then 2-3 x's per week. 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 60 g 2 06/21/2022 Active Desonide 0.05 % External CreamIndications: Other psoriasis,Inverse psoriasis APPLY TO PINK PATCHES ON THE FACE TWICE DAILY NEEDED FOR FLARES OF PSORIASIS 15 g 3 07/18/2022 Active Aspirin 81 MG Oral Capsule One day 0 08/05/2022 Active Gabapentin 300 MG Oral Capsule (Neurontin)Indica tions:Polyneuropa thy Take 1 Capsule by mouth in the morning and 1 Capsule at noon and 1 Capsule before bedtime. 90 Capsule 5 01/19/2023 Active diazePAM 5 MG Oral Tablet (Valium) 1 tab one hour prior to MRI (must have fuel oil truck driver) 2 Tablet 0 01/23/2023 Active Atorvastatin Calcium 40 MG Oral Tablet (Lipitor)Indicati ons:Hyperlipidemi a LDL goal <130 TAKE 1 TABLET BY MOUTH EVERYDAY AT BEDTIME 90 Tablet 1 01/30/2023 Active Atorvastatin Calcium 40 MG Oral Tablet (Lipitor)Indicati ons:Hyperlipidemi a LDL goal <130 TAKE 1 TABLET BY MOUTH EVERYDAY AT BEDTIME 90 Tablet 0 10/27/2022 01/31/20 23 Discontinued documented as of this encounter (statuses as of 01/30/2023) Active Problems Problem Noted Date Carpal tunnel [...] as of this encounter (statuses as of 01/30/2023) Resolved Problems Problem Noted Date Resolved Date [...] Lipid Taxonomy. Other chronic sinusitis 10/17/19 18 Winding Department Supervisor's cramp 03/28/2019 documented as of this encounter (statuses as of 01/30/2023) Immunizations Name Administration Dates Next Due COVID-19 [...] encounter Miscellaneous Notes * Telephone Encounter - Juli Jennings [facility] - 01/30/2023 12:45 PM EDT Signed Prescriptions: Disp Refills Atorvastatin Calcium 40 MG Oral Tablet (Li*90 Tab*1 Sig: TAKE 1 TABLET BY MOUTH EVERYDAY AT BEDTIMEAuthorizing Provider: ARMANI ARREGUIN User: JULI JENNINGS documented in this encounter Plan of Treatment Upcoming Encounters Date Type Specialty Care Team Description 02/02/2023 Office Visit Neurology Lynn Hoover MD [address] [facility] [place] [address] 02/23/2023 Office Visit Family Medicine Armani Arreguin MD [address] [place] [address] [place] [address] 03/14/2023 NeuroDiagnostic Study Neurophysiology Lynn Hoover MD [address] [facility] [place] [address] Scheduled Procedures Name Priority Associated Diagnoses Date/Ti me COLONOSCOPY FLEXIBLE PROXIMAL DIAGNOSTIC Recall History of colon polyps Health Maintenance Due Date Last Done Comments [...] as of this encounter Visit Diagnoses Diagnosis Hyperlipidemia LDL goal <130 Other and unspecified hyperlipidemia documented in this encounter Care Teams Sporting Goods Sales Associate Relationship Specialty Start Date End Date Armani Arreguin MD [address] [place] [address] [place] [address] PCP - General Family Medicine 09/01/22 documented as of this encounter
--- OUTSIDE RECORDS SUMMARY | 2023-02-20 21:35 | External Medical Summary | Summary of Care ---
Author Name Unknown Organization [facility] Address [address] [place] [address] Phone [phone] Care Team Providers Care Software Tools Developer Name Role Phone Armani Hough MD Primary Care Provider Reason for Visit * Reason Onset Date Comments FYI 01/27/2023 Encounter Details Date Type Department Care Team Description 01/27/2023 Telephone Neurology [facility] [address] [place] [address] Services, Scheduling [address] [place] [address] Allergies No known active allergiesdocumented as of this encounter (statuses as of 01/27/2023) Medications Medication Sig Dispensed Refills Start Date [...] Oral Capsule One day 0 08/05/2022 Active Atorvastatin Calcium 40 MG Oral Tablet (Lipitor)Indication s:Hyperlipidemia LDL goal <130 TAKE 1 TABLET BY MOUTH EVERYDAY AT BEDTIME 90 Tablet 0 10/27/2022 Active Gabapentin 300 MG Oral Capsule (Neurontin)Indicati ons:Polyneuropathy Take 1 Capsule by mouth in the morning and 1 Capsule at noon and 1 Capsule before bedtime. 90 Capsule 5 01/19/2023 Active diazePAM 5 MG Oral Tablet (Valium) 1 tab one hour prior to MRI (must have local truck driver) 2 Tablet 0 01/23/2023 Active documented as of this encounter (statuses as of 01/27/2023) Active Problems Problem Noted Date Carpal tunnel [...] as of this encounter (statuses as of 01/27/2023) Resolved Problems Problem Noted Date Resolved Date [...] Lipid Taxonomy. Other chronic sinusitis 10/17/19 18 Carton Inspector's cramp 03/28/2019 documented as of this encounter (statuses as of 01/27/2023) Immunizations Name Administration Dates Next Due COVID-19 [...] Telephone Encounter - Evelyn Goldsmith LPN - 01/27/2023 3:50 PM EDT Auth still pending * Telephone Encounter - RUTHY Nix - 01/27/2023 3:41 PM EDT [facility] in [place] calling because they did not receive an auth for either MRI referral that was sent over to them Plz contact [facility] in [place] before 11am on Monday to send auth Thank you documented in this encounter Plan of Treatment Upcoming Encounters Date Type Specialty Care Team Description 02/02/2023 Office Visit Neurology Lynn Hoover MD 200 [place] [address] 02/23/2023 Office Visit Family Medicine Armani Hough MD [address] [place] [address] [place] [address] 03/14/2023 NeuroDiagnostic Study Neurophysiology Lynn Hoover MD [facility] [place] [address] Scheduled Procedures Name Priority Associated Diagnoses Date/Ti [...] Not on filedocumented as of this encounter Care Teams Software Tools Developer Relationship Specialty Start Date End Date Armani Hough MD [address] [place] [address] [place] [address] PCP - General Family Medicine 09/01/22 documented as of this encounter
--- OUTSIDE RECORDS SUMMARY | 2023-02-20 21:35 | External Medical Summary | Summary of Care ---
Author Name Unknown Organization [facility] Address [address] [facility] [place] [address] Phone [phone] Care Team Providers Care Foundry Tender Name Role Phone Armani Hough MD Primary Care Provider + [phone] Reason for Visit * Reason Onset Date Comments Fax 01/25/2023 Encounter Details Date Type Department Care Team Description 01/25/2023 Telephone Family Medicine [address] [address] Armani Hough MD [address] [place] [address] Fax Allergies No known active allergiesdocumented as of this encounter (statuses as of 01/25/2023) Medications Medication Sig Dispensed Refills Start Date [...] one hour prior to MRI (must have milk wagon driver) 2 Tablet 0 01/23/2023 Active documented as of this encounter (statuses as of 01/25/2023) Active Problems Problem Noted Date Carpal tunnel [...] as of this encounter (statuses as of 01/25/2023) Resolved Problems Problem Noted Date Resolved Date [...] Lipid Taxonomy. Other chronic sinusitis 10/17/19 18 Automatic Blocker's cramp 03/28/2019 documented as of this encounter (statuses as of 01/25/2023) Immunizations Name Administration Dates Next Due COVID-19 [...] encounter Miscellaneous Notes * Telephone Encounter - RUTHY Morgan - 01/25/2023 12:25 PM EDT faxed * Telephone Encounter - RUTHY Lopez - 01/25/2023 9:34 AM EDT Caller requesting the following information to be faxed: Name/Company of caller: [facility] in [place] Information requested to be faxed: MRI order Fax number: [phone] Attention to Name/Company: n/a Any additional information?: patient scheduled for 01/26 documented in this encounter Plan of Treatment Upcoming Encounters Date Type Specialty Care Team Description 02/02/2023 Office Visit Neurology Lynn Hoover MD [address] [facility] [place] [address] 02/23/2023 Office Visit Family Medicine Armani Hough MD [address] [place] [address] [place] [address] 03/14/2023 NeuroDiagnostic Study Neurophysiology Lynn Hoover MD [address] [facility] [place] [address] Scheduled Procedures Name Priority Associated Diagnoses Date/Ti [...] filedocumented as of this encounter Care Teams Foundry Tender Relationship Specialty Start Date End Date Armani Hough MD [address] [place] [address] [place] [address] PCP - General Family Medicine 09/01/22 documented as of this encounter
--- OUTSIDE RECORDS SUMMARY | 2023-02-20 21:35 | External Medical Summary | Summary of Care ---
Author Name Unknown Organization [facility] Address [address] [place] [address] Phone [phone] Care Team Providers Care Food Demonstrator Name Role Phone Armani Hough MD Primary Care Provider [phone] Encounter Details Date Type Department Care Team Description 01/25/2023 Telephone Neurology [facility] [address] [place] [address] Services, Scheduling [address] [place] [address] Allergies No known active allergiesdocumented as of [...] one hour prior to MRI (must have commercial trailer truck driver) 2 Tablet 0 01/23/2023 Active [...] Lipid Taxonomy. Other chronic sinusitis 10/17/19 18 Shell Machine Operator's cramp 03/28/2019 documented as of this encounter [...] Telephone Encounter - Evelyn Goldsmith LPN - 01/25/2023 4:00 PM EDT Lab results faxed to [facility] * Telephone Encounter - RUTHY Nix - 01/25/2023 12:50 PM EDT Patient called requesting test results. Who is Requesting Test Results: [facility] for MRI being done in [place] Primary Care Provider : Armani Hough Tests Results Requested : Creatinine and Glucose, results of latest blood work Date of Test : 01.23.23 Location of Test: Lab [facility] Ordering Provider: Lynn Hoover Callback Number: [phone] for [facility] or call pt with info at [phone] Thank you documented in this encounter Plan of Treatment Upcoming Encounters Date Type Specialty Care Team Description 02/02/2023 Office Visit Neurology Lynn Hoover MD [address] [facility] [place] [address] 02/23/2023 Office Visit Family Medicine Armani Hough MD [address] [place] [address] [place] [address] 03/14/2023 NeuroDiagnostic Study Neurophysiology Lynn Hoover MD [address] [facility] [place] [address] Scheduled Procedures Name Priority Associated Diagnoses Date/Ti [...] filedocumented as of this encounter Care Teams Food Demonstrator Relationship Specialty Start Date End Date Armani Hough MD [address] [place] [address] [place] [address] PCP - General Family Medicine 09/01/22 documented as of this encounter
--- OUTSIDE RECORDS SUMMARY | 2023-02-20 21:35 | External Medical Summary | Summary of Care ---
Author Name Unknown Organization [facility] [address] [facility] [address] Phone [phone] Care Team Providers Care Final Inspector Truck Trailer Name Role Phone Armani Hough MD Primary Care Provider + [phone] Reason for Visit * Reason Onset Date Comments Advice 01/31/2023 advice Encounter Details Date Type Department Care Team Description 01/31/[address] [facility] 200 [facility] [place] [address] Lynn Hoover MD [address] [place] [address] Advice (advice) Allergies No known active allergiesdocumented as of this encounter (statuses as of 01/31/2023) Medications Medication Sig Dispensed Refills Start Date [...] one hour prior to MRI (must have refrigerated company driver) 2 Tablet 0 01/23/2023 Active Atorvastatin Calcium 40 MG Oral Tablet (Lipitor)Indication s:Hyperlipidemia LDL goal <130 TAKE 1 TABLET BY MOUTH EVERYDAY AT BEDTIME 90 Tablet 1 01/30/2023 Active documented as of this encounter (statuses as of 01/31/2023) Active Problems Problem Noted Date Carpal tunnel [...] as of this encounter (statuses as of 01/31/2023) Resolved Problems Problem Noted Date Resolved Date [...] Lipid Taxonomy. Other chronic sinusitis 10/17/19 18 Melt House Drag Operator's cramp 03/28/2019 documented as of this encounter (statuses as of 01/31/2023) Immunizations Name Administration Dates Next Due COVID-19 [...] Telephone Encounter - Evelyn Goldsmith LPN - 01/31/2023 10:19 AM EDT Approval was faxed. My G sent * Telephone Encounter - RUTHY Cervantes - 01/31/2023 9:18 AM EDT Pt was scheduled for MRI when Pt arrive the said they never received authorization letter for MRI to take Please. [address] [place] number to office [phone]. Pt got MRI done but not the other. Pt is requesting Pain Meds. Please send med order [facility] [id number] Please contact Pt advice to this matter Thank you documented in this encounter Plan of Treatment Upcoming Encounters Date Type Specialty Care Team Description 02/02/2023 Office Visit Neurology Lynn Hoover MD [address] [facility] [place] [address] 02/23/2023 Office Visit Family Medicine Armani Hough MD [address] [place] [address] [place] [address] 03/14/2023 NeuroDiagnostic Study Neurophysiology Lynn Hoover MD 200 [facility] [place] [address] Scheduled Procedures Name Priority Associated Diagnoses Date/Ti [...] filedocumented as of this encounter Care Teams Final Inspector Truck Trailer Relationship Specialty Start Date End Date Armani Hough MD [address] [place] [address] [place] [address] PCP - General Family Medicine 09/01/22 documented as of this encounter
--- OUTSIDE RECORDS SUMMARY | 2023-02-20 21:35 | External Medical Summary | Summary of Care ---
Author Name Unknown Organization [facility] [address] [facility] [address] Phone [phone] Care Team Providers Care Flavoring Oil Filterer Name Role Phone Armani Hough MD Primary Care Provider + [phone] Reason for Visit * Reason Onset Date Comments Pre Authorization Request 01/25/2023 MRI Or ders need an authorization Encounter Details Date Type Department Care Team Description 01/25/2023 Telephone Neurology [facility] 200 [place] [address] Lynn Hoover MD 200 [place] [address] Pre Authorization Request (MRI Orders need... Allergies No known active allergiesdocumented as of [...] one hour prior to MRI (must have cat driver) 2 Tablet 0 01/23/2023 Active documented [...] Lipid Taxonomy. Other chronic sinusitis 10/17/19 18 Water Meter Mechanic's cramp 03/28/2019 documented as of this encounter [...] Telephone Encounter - RUTHY Morgan - 01/25/2023 2:56 PM EDT Submitted twice but it's under clinical review * Telephone Encounter - RUTHY Jama - 01/25/2023 2:09 PM EDT Authorizations for the MRI orders is needed by [facility] to do these please fax it to [phone] documented in this encounter Plan of Treatment Upcoming Encounters Date Type Specialty Care Team Description 02/02/2023 Office Visit Neurology Lynn Hoover MD [address] [facility] [place] [address] 02/23/2023 Office Visit Family Medicine Armani Hough MD [address] [place] [address] [place] [address] 03/14/2023 NeuroDiagnostic Study Neurophysiology Lynn Hoover MD 200 [facility] [place] [address] Scheduled Procedures Name Priority Associated Diagnoses Date/Ti [...] filedocumented as of this encounter Care Teams Flavoring Oil Filterer Relationship Specialty Start Date End Date Armani Hough MD [address] [place] [address] [place] [address] PCP - General Family Medicine 09/01/22 documented as of this encounter
--- OUTSIDE RECORDS SUMMARY | 2023-02-20 21:35 | External Medical Summary | Summary of Care ---
Author Name Unknown Organization [facility] Address [address] [facility] [place] [address] Phone [phone] Care Team Providers Care Law Enforcement Instructor Name Role Phone Armani Hough MD Primary Care Provider + [phone] Reason for Visit * Reason Onset Date Comments Pre Authorization Request 01/25/2023 MRI Or ders need an authorization Encounter Details Date Type Department Care Team Description 01/25/2023 Telephone Neurology [facility] 200 [place] [address] Lynn Hoover MD 200 [place] [address] Pre Authorization Request (MRI Orders need... Allergies [...] one hour prior to MRI (must have class a truck driver) 2 Tablet 0 01/23/2023 Active [...] Lipid Taxonomy. Other chronic sinusitis 10/17/19 18 Food Crops Farm Hand's cramp 03/28/2019 documented as of this encounter [...] Encounter - Evelyn Goldsmith LPN - 01/31/2023 10:21 AM EDT Approval faxed * Telephone Encounter - RUTHY Monroe - 01/30/2023 4:18 PM EDT Joi from Radiology calling on behalf of pt. Pt still needs prior auth for MRI thoracic spine w/wo completed 01/26 CPT 84743 and for lumbar spine w/wo will be completed 02/08 CPT 62766. Please advise and thank you! * Telephone Encounter - Honey Nielsen, RUTHY - 01/25/2023 2:56 PM EDT Submitted twice but it's under clinical review * Telephone Encounter - Kristie Cha, RUTHY - 01/25/2023 2:09 PM EDT Authorizations for the MRI orders is needed by [facility] to do these please fax it to [phone] documented in this encounter Plan of Treatment Upcoming Encounters Date Type Specialty Care Team Description 02/02/2023 Office Visit [facility] [address] 02/23/2023 Office Visit Family Medicine Armani Hough MD [address] [place] [address] [place] [address] 03/14/2023 NeuroDiagnostic Study Neurophysiology Lynn Hoover MD 200 [place] [address] Scheduled Procedures Name Priority Associated Diagnoses Date/Ti [...] filedocumented as of this encounter Care Teams Law Enforcement Instructor Relationship Specialty Start Date End Date Armani Hough MD [address] [place] [address] [place] [address] PCP - General Family Medicine 09/01/22 documented as of this encounter
--- OUTSIDE RECORDS SUMMARY | 2023-02-20 21:35 | External Medical Summary | Summary of Care ---
Author Name Unknown Organization [facility] Address [address] [facility] [place] [address] Phone [phone] Care Team Providers Care Assembler Installer General Name Role Phone Armani Hough MD Primary Care Provider + [phone] Reason for Visit * Reason Onset Date Comments Pre Authorization Request 01/25/2023 MRI Or ders need an authorization Encounter Details Date Type Department Care Team Description 01/25/2023 Telephone Neurology [facility] 200 [place] [address] Lynn Hoover MD 200 [place] [address] Pre Authorization Request (MRI Orders need... Allergies [...] one hour prior to MRI (must have driver utility worker) 2 Tablet 0 01/23/2023 Active Atorvastatin Calcium [...] Lipid Taxonomy. Other chronic sinusitis 10/17/19 18 Director Of Grants's cramp 03/28/2019 documented as of this encounter [...] Miscellaneous Notes * Telephone Encounter - RUTHY Monroe - 01/30/2023 4:18 PM EDT Joi from Radiology calling on behalf of pt. Pt still needs prior auth for MRI thoracic spine w/wo completed 01/26 CPT 31868 and for lumbar spine w/wo will be completed 02/08 CPT 38498. Please advise and thank you! * Telephone Encounter - RUTHY Morgan - 01/25/2023 2:56 PM EDT Submitted twice but it's under clinical review * Telephone Encounter - RUTHY Jama - 01/25/2023 2:09 PM EDT Authorizations for the MRI orders is needed by [facility] to do these please fax it to [phone] documented in this encounter Plan of Treatment Upcoming Encounters Date Type Specialty Care Team Description 02/02/2023 Office Visit Neurology Lynn Hoover MD [facility] [place] [address] 02/23/2023 Office Visit Family Medicine Armani Hough MD [address] [place] [address] [place] [address] 03/14/2023 NeuroDiagnostic Study [facility]physiology [facility] [address] Scheduled Procedures Name Priority Associated Diagnoses Date/Ti [...] filedocumented as of this encounter Care Teams Assembler Installer General Relationship Specialty Start Date End Date Armani Hough MD [address] [place] [address] [place] [address] PCP - General Family Medicine 09/01/22 documented as of this encounter
--- OUTSIDE RECORDS SUMMARY | 2023-02-20 21:35 | External Medical Summary | Summary of Care ---
Author Name Unknown Organization [facility] Address [address] [place] [address] Phone [phone] Care Team Providers Care Precision Assembler Bench Name Role Phone Armani Hough MD Primary Care Provider + [phone] Reason for Referral * Evaluate & Treat - Unlimited Visits (Within 3 days (urgent)) - Pending Review Specialty Diagnoses / Procedures Referred By Mame mckeon Referred To Contact Neuro/Ortho Surgery - Spine. / Neurological Surgery Diagnoses Thoracic disc disorder with myelopathy Lynn Hoover MD [address] [facility] [place] [address] Referral ID Status Reason Start Date Expiration Date Visits Requested Visits Authorized [id number] Pending Review Specialty Services Required 01/31/[phone] Question Answer Referral Priority Within 3 days (urgent) Select spine region: Back - Thoracic/Lumbar Do you have any recent complete loss of bladder or bowel function? 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 MRI thoracic spine [address] shows abnormal signal T10-T11 at the site of severe spinal canal stenosis Encounter Details Date Type Department Care Team Description 01/31/2023 Telephone Neurology [place] Aleks Valentin [address] [facility] [place] [id number] Lynn Hoover MD [address] [facility] [place] [phone] Allergies No known active allergiesdocumented as of [...] one hour prior to MRI (must have otr tanker truck driver) 2 Tablet 0 01/23/2023 Active Atorvastatin Calcium 40 MG Oral Tablet (Lipitor)Indication s:Hyperlipidemia LDL goal <130 TAKE 1 TABLET BY MOUTH EVERYDAY AT BEDTIME 90 Tablet 1 01/30/2023 Active oxyCODONE HCl 5 MG Oral Tablet (Oxy IR)Indications:Cushion Former gabriela bilateral low back pain with left-sided [...] Lipid Taxonomy. Other chronic sinusitis 10/17/19 18 Wheel Lacer And Truer's cramp 03/28/2019 documented as of this encounter [...] Encounter - Evelyn Goldsmith LPN - 02/01/2023 10:22 AM EDT Patient going to ER, see other encounter * Telephone Encounter - Evelyn Goldsmith LPN [...] should present himself to the emergency room\ Frank, I would like pt to see Dr Hendrickson documented in this encounter Plan of Treatment Upcoming Encounters Date Type Specialty Care Team Description 02/02/2023 Office Visit Neurology Lynn Hoover MD [address] [facility] [place] [id number] 02/23/2023 Office Visit Family Medicine Armani Hough MD [address] [place] [address] [place] [id number] 03/14/2023 NeuroDiagnostic Study Neurophysiology Lynn Hoover MD [address] [place] [address] [place] [id number] Scheduled Procedures Name Priority Associated Diagnoses Date/Ti [...] region documented in this encounter Care Teams Precision Assembler Bench Relationship Specialty Start Date End Date Armani Hough MD [address] [place] [address] [place] [address] PCP - General Family Medicine 09/01/22 documented as of this encounter
--- OUTSIDE RECORDS SUMMARY | 2023-02-20 21:36 | External Medical Summary ---
Author Name Unknown Address Unknown Organization [id number][place] [place] [address] [place] [address] Laboratory Report Ordering Provider Test Date Status EUFEMIA CHRISTIANSON 11/18/2022 10:51:30 Final Observation Date Value Abnormality Reference (Units ) Status Retic, % (auto) 11/18/2022 10:51:30 2.04 Above high normal 0.80-1.90 (%) Final Reticulocytes, Absolute 11/18/2022 10:51:30 74.3 31.3-100.1 (K/uL) Final Reticulocyte HGB 11/18/2022 10:51:30 38.7 Above high normal 29.7-37.4 (pg) Final [place]forming Location [facility] [place] [address] [place] [address]
--- OUTSIDE RECORDS SUMMARY | 2023-02-20 21:36 | External Medical Summary ---
Author Name Unknown Address Unknown Organization : Laboratory Report Ordering Provider Test Date Status WHITNEY NAJERA 01/23/2023 10:05:40 Final Observation Date Value Abnormality Reference (Units ) Status METHYLMALONIC ACID 01/23/2023 10:05:40 186 8 [phone] (nmol/L) Final Performing Location
--- OUTSIDE RECORDS SUMMARY | 2023-02-20 21:36 | External Medical Summary | Summary of Care ---
Author Name Unknown Organization [facility] Address [address] [place] [address] Phone [phone] Care Team Providers Care Product Marketing Specialist Name Role Phone Armani Hough MD Primary Care Provider + [phone] Reason for Referral * Precert (Within 10 days (routine)) - Pending Review Specialty Diagnoses / Procedures Referred By Contac t Referred To Contact Radiology Diagnoses Weakness of right lower extremity Severe low back pain Procedures MRI L SPINE W WO CONTRAST Reinaldo Hoover MD [address] [place] [address] Referral ID Status Reason Start Date Expiration Date V isits Requested Visits Authorized [id number] Pending Review 01/23/2023 999 999 * Precert (Within 10 days (routine)) - Pending Review Specialty Diagnoses / Procedures Referred By Contac t Referred To Contact Radiology Diagnoses Thoracic disc disorder with myelopathy Procedures MRI T SPINE WO CONTRAST Reinaldo Hoover MD [address] [place] [address] Referral ID Status Reason Start Date Expiration Date V isits Requested Visits Authorized [id number] Pending Review 01/23/2023 999 999 * Evaluate & Treat - Unlimited Visits (Within 3 days (urgent)) - Pending Review Specialty Diagnoses / Procedures Referred By Mame mckeon Referred To Contact Physical Therapy / Physical Medicine And Rehab Diagnoses Peroneal palsy, right Reinaldo Hoover MD [address] [place] [address] Referral ID Status Reason Start Date Expiration Date Visits Requested Visits Authorized [id number] Pending Review Specialty Services Required 01/23/2023 999 999 Question Answer Referral Priority Within 3 days (urgent) Comments One time eval to fit for r afo Reason for Visit * Reason Comments Return Neuro * Evaluate & Treat - Unlimited Visits (Within 10 days (routine)) - Pending Review Specialty Diagnoses / Procedures Referred By Mame mckeon Referred To Contact Neurology Diagnoses Right foot drop Armani Hough MD [address] [place] [address] [place] [id number] Referral ID Status Reason Start Date Expiration Date Visits Requested Visits Authorized [id number] Pending Review Specialty Services Required 12/19/[phone] Encounter Details Date Type Department Care Team Description 01/23/2023 Office Visit Neurology [facility] [place] [address] [place] [place] [address] Reinaldo Hoover MD [address] [place] [address] Peroneal palsy, right*; Thoracic disc disorder with myelopathy; Weakness of right lower extremity; Severe low back pain Allergies No known active allergiesdocumented as of this encounter (statuses as of 01/23/2023) Medications Medication Sig Dispensed Refills Start Date [...] 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 Other chronic sinusitis 10/17/19 18 Electric Tape Slitter's cramp 03/28/2019 documented as of this encounter (statuses as of 01/23/2023) Immunizations Name Administration Dates Next Due COVID-19 [...] on file documented as of this encounter Last Filed Vital Signs Vital Sign Reading Time Taken Comments Blood Pressure 138/80 01/23/2023 8:44 AM EDT Pulse 86 01/23/2023 8:44 AM EDT Temperature 36.5 C (97.7 F) 01/23/2023 8:44 AM ED T Respiratory Rate 16 01/23/2023 8:44 AM EDT Oxygen Saturation - - Inhaled Oxygen Concentration - - Weight 82.4 kg (181 lb 11.2 oz) 01/23/2023 8:44 AM EDT Height - - Body Mass Index 26.83 11/18/2022 10:32 AM EDT documented in this encounter Functional Status Functional Status Response [...] Yes 05/26/2015 documented as of this encounter Progress Notes * Reinaldo Hoover MD - 01/23/2023 8:49 AM EDT Images from the original note were not included. CLINIC NOTES [facility] [address] [place] [address] Cuong Li : 1955 NEUROLOGY OUTPATIENT NOTE 01/23/2023 HISTORY: The patient is referred for consultation by Dr. Hough, who will be receiving a copy of this note. Patient comes today in follow-up dizziness. An asymptomatic small left hemisphere corticalinfarct seen on evaluation of the same. Zio bubble study are as follows. 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 Predominant underlying rhythm was Sinus Rhythm. First Degree AV Block was present. Isolated SVEs were rare (<1.0%), SVE Couplets were rare (<1.0%), and SVE Triplets were rare (<1.0%). Isolated VEs were rare (<1.0%), and no VE Couplets or VE Triplets were present. Isolated symptomatic event correlates with normal sinus rhythm. The patient had had nerve conduction as he complained of numbness in left fingers 4 and 5. The study is as follows. It does not show a left ulnar neuropathy. It shows a moderate left median neuropathy at the level of the wrist without denervation and a mild peripheral neuropathy which is axonal. The patient continues to complain of numbness in all the fingers on the left hand. Encounter Date: 11/17/2022 [facility] [place]phys[place] Electromyography Report Name: Cuong Li Date of : 1955 (67 year old) Sex: male Referring Physician: Kasi Mcdaniel DO Examining Physician: Kasi Mcdaniel DO Examination Date: 11/17/2022 Ht Readings from Last 1 Encounters: 12/23/20 1.753 m (5' 9") Wt Readings from Last 1 Encounters: 08/05/22 90.4 kg (199 lb 4.8 oz) Impression: Abnormal study. This electrodiagnostic study shows evidence of the followin. Mild axonal sensory polyneuropathy. 2. Superimposed severe left median neuropathy at the wrist (carpal tunnel syndrome). There is no electrophysiological evidence of a cervical radiculopathy in the left upper extremity. History and Physical examination: A 67-year-old male a history of essential tremor referred for evaluation of left hand numbness. Examination demonstrates no thenar muscle atrophy. EMG/NCS performed for evaluation of median versus ulnar neuropathy. Nerve Conduction Studies Examination Findings: Nerve conduction studies were performed in the left upper extremity. The median sensory nerve response was absent. The ulnar and radial sensory nerve study showed normal peak latencies, reduced amplitudes, and normal conduction velocities. The median motor nerve study showed a prolonged distal latency, normal amplitude, and normal conduction velocity. The ulnar motor nerve study showed a normal distal latency, normal amplitude, and normal conduction velocity. The ulnar F-wave latency was prolonged. Please see the attached document for raw data or the scanned document in [place]. Reference values are from the [facility] normative data guidelines that are attached at the end ofthis document. Electromyography Examination Findings: Needle examination was performed with a disposable concentric needle electrode in selected muscles of the left upper extremity, as recorded in the tables. No abnormal spontaenous activity was seen. The motor unit action potentials in the muscles tested demonstrated normal size, duration, and recruitment. Please see the attached document for raw data or the scanned document in [place]. The study was done with a concentric needle examination. Kasi Mcdaniel DO 0841 NeuroDiagnostic Study on 11/17/2022 Detailed Report Patient says he is had a right footdrop for 2 weeks but I can see that it has been about 6 weeks. He talks about numbness below the level of the umbilicus for 2 weeks but no incontinence of bowel or bladder. He is lost about 20 lb over the last several months he has not had any rashes he is not diabetic he is not had fever he has no personal history of cancer. He has had lumbar surgery in the past but does not recall that 1 leg was more symptomatic than the other just that he had had back pain.There is a CT of the L-spine performed in 2021 that I have reviewed Past Medical History: Diagnosis Date Avulsion of hamstring muscle, right, initial encounter 05/11/2017 Benign neoplasm of colon 10/15/2010 polyp x1, path shows adenomatous tissue repeat in 5 years Calcific tendonitis of right thigh 06/01/2017 CT Carpal tunnel syndrome of left wrist 11/17/2022 severe on EMG CKD (chronic kidney disease), stage II 09/14/2020 EGFR 71 Dyslipidemia, goal LDL below 160 Encounter for hepatitis C screening test for low risk patient 09/08/2016 negative Esophageal reflux Essential and other specified forms of tremor Fatty liver 11/23/2022 moderate on ultrasound Generalized anxiety disorder Hepatitis A antibody positive 09/08/2016 HTN, goal below 140/90 Impotence of organic origin Inflamed seborrheic keratosis 07/27/[address] Victoria Major depressive disorder, single episode, moderate (HCC) Other chronic sinusitis Other psoriasis Raynaud's syndrome Rosacea Rupture of hamstring tendon 05/26/2017 right Trochanteric bursitis of right hip 06/10/2020 Electric Tape Slitter's cramp Patient Active Problem List Diagnosis Code Primary hypertension I10 Tobacco use disorder F17.200 Gastroesophageal reflux disease with esophagitis without hemorrhage K21.00 Psoriasis L40.9 Rosacea L71.9 IMPOTENCE, 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 GENERALIZED ANXIETY DIS F41.1 Major depressive disorder, single episode, moderate (HCC) F32.1 ADVANCE DIRECTIVE INFORMATION Raynaud's syndrome I73.00 Hyperlipidemia LDL goal <130 E78.5 Persistent insomnia G47.00 Essential tremor G25.0 Trochanteric bursitis of right hip M70.61 CKD (chronic kidney disease), stage II N18.2 Hx of nonmelanoma skin cancer Z85.828 Carpal tunnel syndrome of left wrist G56.02 Past Surgical History: Procedure Laterality Date COLONOSCOPY W/ LESION REMOVAL, SNARE 10/15/2010 polyp x1, path shows adenomatous tissue repeat in 5 years COLONOSCOPY, DIAGNOSTIC (RECTUM) 06/03/2016 7,6,2 mm polyps ascending, 6,3 mm polyps transverse colon Repeat 3 years/COLONOSCOPY FLEXIBLE PROXIMAL DIAGNOSTIC performed by Antoinette Godinez MD at [facility] COLONOSCOPY, DIAGNOSTIC (RECTUM) 02/12/2020 2 adenomatous polyps in transverse colon, repeat 3 yrs / COLONOSCOPY FLEXIBLE PROXIMAL DIAGNOSTIC performed by Antoinette Godinez MD at [facility] CT LOWER EXTREMITY W CONTRAST Right 05/26/2017 complete avulsion right hamstring tendon with 3 cm gap, mild hip arthritis, calcific tendonitis right gluteus medius CT SINUSES WO CONTRAST 10/09/2009 chronic sinusitis ECHO EXAM OF HEART (2D ECHO) 09/01/2022 normal LV size and function, EF 55-59%, aortic root 4 cm ascending aorta 4.5 cm ECHO, COMPLETE (2D), TRANS-THORACIC N/A 12/17/2020 normal LV size and function, EF 55-59%, grade I diastolic dysfunction, LAE 4.5 cm EMG 11/17/2022 Mild axonal sensory polyneuropathy. uperimposed severe left median neuropathy at the wrist (carpal tunnel syndrome). EXTERNAL EKG 8 TO 15 DAYS HOME ENROLLMENT 08/16/2022 NSR, min 41, ave 71 max 131 MRI BRAIN W WO CONTRAST 07/11/2022 small cortical defect left cerebrum, old infarct MRI C SPINE W CONT 03/10/2014 severe bilateral foramen narrowing L3-4, L4-5, L5-S1 and severe left neural foramen narrowing L2-3 US ABDOMEN LIMITED 05/30/2012 normal, no kidney stones US ABDOMEN LIMITED 11/23/2022 moderate fatty liver VASC DUPLEX CAROTID BILAT Bilateral 08/17/2022 <50% ICA stenosis, vertebrals antegrade Social History Socioeconomic History Marital status: Spouse name: Not on file Number of children: 2 Years of education: Not on file Highest education level: Not on file Occupational History 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 Two children in good health. 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 Social Determinants of Health Financial Resource Strain: Not on file Food Insecurity: Unknown Worried About Running Out of Food in the Last Year: Not on file Ran Out of Food in the Last Year: Never true Transportation Needs: Not on file Physical Activity: Not on file Stress: Not on file Social Connections: Not on file Intimate Partner Violence: Not on file Housing Stability: Not on file Family History Problem Relation Age of Onset Hypertension Father Hypertension Sister Hypertension Sister Hypertension Sister Hypertension Brother Cancer Aunt (Unspecified) Cancer Aunt (Unspecified) Arthritis Mother Arthritis Sister Diabetes Father Stroke Father Other (Tremors) None Other (Parkinson's Disease) None Current Outpatient Medications Medication Sig Dispense Refill LISINOPRIL 40 MG PO TABS Take by mouth. Indications: in am 90 Tab 3 VIAGRA 100 MG PO TABS one as needed 6 Tab 5 BuPROPion HCl ER, SR, 200 MG TB12 Take 1 Tablet by mouth in the morning and 1 Tablet before bedtime. 1 twice daily. 0 traZODone (DESYREL) 100 MG Tablet TAKE 1/2 TABLET DAILY AT BEDTIME (Patient taking differently: Oneat bedtime) 90 Tab 1 Fluocinonide 0.05 % External Cream Apply to rash on the abdomen twice daily as needed for flares 30g 0 Baclofen 10 MG Oral Tablet (Lioresal) TAKE 2 TABLETS BY MOUTH IN THE MORNING AND 1 TABLET IN THE EVENING 270 Tab 1 busPIRone HCl 15 MG Oral Tablet (Buspar) Take 15 Tablets by mouth in the morning and 15 Tablets at noon and 15 Tablets before bedtime. Metoprolol Tartrate 25 MG Oral Tablet (Lopressor) one pill twice a day (Patient taking differently:2 Tablets in the morning and 2 Tablets before bedtime. one pill twice a day.) 180 Tablet 1 Omeprazole 20 MG Oral Capsule Delayed Release (PriLOSEC) Take by mouth 1 Capsule in the morning. 90Capsule 1 Hydrocortisone 2.5 % External Ointment Apply to rash on the face twice daily x 3-4 days, then 2-3 x's per week. 15 g 1 Tacrolimus 0.1 % External Ointment (Protopic) APPLY TO PSORIASIS ON THE GENITALS TWICE DAILY NEEDED FOR FLARES. 60 g 2 Desonide 0.05 % External Cream APPLY TO PINK PATCHES ON THE FACE TWICE DAILY NEEDED FOR FLARES OF PSORIASIS 15 g 3 Aspirin 81 MG Oral Capsule One day Atorvastatin Calcium 40 MG Oral Tablet (Lipitor) TAKE 1 TABLET BY MOUTH EVERYDAY AT BEDTIME 90 Tablet 0 Gabapentin 300 MG Oral Capsule (Neurontin) Take 1 Capsule by mouth in the morning and 1 Capsule at noon and 1 Capsule before bedtime. 90 Capsule 5 No current facility-administered medications for this visit. Review of patient's allergies indicates: No Known Allergies REVIEW OF SYSTEMS: As above PHYSICAL EXAM: BP 138/80 | Pulse 86 | Temp 36.5 C (97.7 F) (Tympanic) | Resp 16 | Wt 82.4 kg (181 lb 11.2 oz) | BMI 26.83 kg/m | BSA 2 m The patient is awake and alert speech and language are normal affect appropriate Tinel's and Phalen's are negative at the left wrist straight leg raising is negative no significant spinal tenderness is noted there is some area of ecchymosis over the left flank which the patient reports is from a fall. Tinel's is negative over the region of the right fibular head. No atrophy or fasciculations are noted tone is normal strength in the uppers is full strength in the lowers is full with the exception of the TA being trace EHL trace peroneus longus 0 with intact tibialis posterior gastroc and toe flexors. Reflexes are intact the right ankle jerk is mildly reduced compared to the left there is no clonus toes are downgoing. No increase in the superficial or deep abdominal reflexes. In the left upper extremity there is decreased light touch in all of the fingers of the left hand there is a knee level to temperature on the right and a midcalf on the left vibration is present at the right knee and left ankle. There is a sensory level to the umbilicus bilaterally. Gait is steppage on the right IMPRESSION: Dizziness not specifically discussed Cortical infarction continue anti-platelet therapy risk factor modification. Last LDL was 95 goal LDL should be 70 or below the intensity statin will need to be increased. The patient initially complained of numbness in left fingers 4 and 5. His nerve conduction shows moderate left carpal tunnel. While he does have numbness in the distribution of the left carpal tunnelhe is numbness in all the fingers on the left hand therefore I would be hesitant to have him have left carpal tunnel surgery as his neurologic deficit exceeds the distribution of the median nerve andhe is not weak. The patient speaks of a footdrop. He appears to have a right peroneal palsy. He will need a nerve conduction EMG. His upper extremity nerve conduction study suggested an axonal sensory polyneuropathy. He may have a peripheral neuropathy as well. More concerning is a reported thoracic sensory level without incontinence or paraparesis. My plan is to obtain an MRI of the T-spine noncontrast and L-spine with and without contrast on a semi-urgent basis hopefully within the next 3 days. There is somelogistical limitations and they include that the patient categorically refuses to have imaging in [facility] open unit. The [facility] MRI is relatively open. Given the apparent thoracic spine localization of his subjective deficit if he has any change very specifically of weakness or incontinence he needs to seek emergent medical care. I will see him back1 week Reinaldo Hoover MD 01/23/2023 8:49 AM documented in this encounter Nursing Notes * LAURENT Mendoza - 01/23/2023 8:43 AM EDT Chief Complaint Patient presents with Return Neuro documented in this encounter Miscellaneous Notes * Addendum Note - Reinaldo Hoover MD - 01/23/2023 10:00 AM EDTAddended by: REINALDO HOOVER on: 01/23/2023 10:00 AM Modules accepted: Orders documented in this encounter Plan of Treatment Upcoming Encounters Date Type Specialty Care Team Description 02/23/2023 Office Visit Family Medicine Armani Hough MD [address] [place] [address] [place] [address] 03/14/2023 NeuroDiagnostic Study Neurophysiology Reinaldo Hoover MD [address] [place] [address] [place] [address] Scheduled Orders Name Type Priority Associated Diagnoses Orde r Schedule MRI T SPINE WO CONTRAST Medical Imaging Routine Thoracic disc disorder with myelopathy Ordered: 01/23/2023 MRI L SPINE W WO CONTRAST Medical Imaging Routine Weakness of right lower extremity Severe low back pain Ordered: 01/23/2023 CREATININE Lab Routine Peroneal palsy, right Weakness of right lower extremity Ordered: 01/23/2023 LYME DISEASE ANTIBODY SCREEN WITH REFLEX TO CONFIRMATION Lab Routine Peroneal palsy, right Weakness of right lower extremity Ordered: 01/23/2023 ERYTHROCYTE SEDIMENTATION RATE (ESR) Lab Routine Peroneal palsy, right Weakness of right lower extremity Ordered: 01/23/2023 SYSTEMIC LUPUS ERYTHEMATOSUS REFLEX PROFILE Lab Routine Peroneal palsy, right Weakness of right lower extremity Ordered: 01/23/2023 HEMOGLOBIN A1C Lab Routine Peroneal palsy, right Weakness of right lower extremity Ordered: 01/23/2023 METHYLMALONIC ACID, SERUM Lab Routine Peroneal palsy, right Weakness of right lower extremity Ordered: 01/23/2023 Scheduled Procedures Name Priority Associated Diagnoses Date/Ti me COLONOSCOPY FLEXIBLE PROXIMAL DIAGNOSTIC Recall History of colon polyps Scheduled Referrals Name Type Priority Associated Diagnoses Orde r Schedule PHYSICAL THERAPY REFERRAL OP Referral Within 3 days (urgent) Peroneal palsy, right Ordered: 01/23/2023 Health Maintenance Due Date Last Done Comments AAA Screening 2018 05/30/2012 COVID-19 Vaccine (3 - Moderna risk series) 09/07/2020 08/10/2020, 07/13/2020 Depression Screening 12/08/2020 12/09/2019 COLONOSCOPY-EVERY 3 YRS AGES 18-100 02/11/2023 02/12/2020, 02/12/2020, 06/03/2016, Additional history exists GFR 11/19/2023 11/18/2022, 06/09, 01/23/2022, Additional history exists Albumin/Creatinine Ratio 06/28/2024 06/28/2021 Diabetes Screening 11/18/2025 11/18/2022, 0 01/23/2022, 01/23/2022, Additional history exists Lipid Panel 09/02/2027 [...] as of this encounter Visit Diagnoses Diagnosis Peroneal palsy, right- Primary Thoracic disc disorder with myelopathy Intervertebral thoracic disc disorder with myelopathy, thoracic region Weakness of right lower extremity Severe low back pain Lumbago documented in this encounter Care Teams Product Marketing Specialist Relationship Specialty Start Date End Date Armani Hough MD [address] [place] [address] [place] [id number] PCP - General Family Medicine 09/01/22 documented as of this encounter
--- OUTSIDE RECORDS SUMMARY | 2023-02-20 21:36 | External Medical Summary | Summary of Care ---
Author Name Unknown Organization [facility] Address [address] [place] [place] [address] Phone [phone] Care Team Providers Care Data Acquisition Technician Name Role Phone Armani Hough MD Primary Care Provider [phone] Reason for Visit * Reason Onset Date Comments Acute Medication Administration 01/19/2023 Flu an d/or Pneumo Inj Encounter Details Date Type Department Care Team Description 01/19/2023 Office Visit Family Medicine [address] [phone] Armani Hough MD [address] [place], [place] [address] [id number] Polyneuropathy*; Need for prophylactic vaccination and inoculation against influenza Allergies No known active allergiesdocumented as of this encounter (statuses as of 01/19/2023) Medications Medication Sig Dispensed Refills Start Date End Date Status LISINOPRIL 40 MG PO TABSIndications:in am Take by mouth. Indications: in am 90 Tab 3 12/13/2011 Active VIAGRA 100 MG PO TABSIndications:Im potence of organic origin one as needed 6 Tab 5 04/26/2013 Active BuPROPion HCl ER, SR, 200 MG TB12 Take 1 Tablet by mouth in the morning and 1 Tablet before bedtime. 1 twice daily. 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 90 Capsule 1 06/28/2021 Active Hydrocortisone 2.5 % External OintmentIndication s:Dermatitis Apply to rash on the face twice daily x 3-4 days, then 2-3 x's per week. 15 g 1 11/16/2021 Active Tacrolimus 0.1 % External Ointment (Protopic)Indicati ons:Other psoriasis,Inverse psoriasis APPLY TO PSORIASIS ON THE GENITALS TWICE DAILY NEEDED FOR FLARES. 60 g 2 06/21/2022 Active Desonide 0.05 % External CreamIndications:O ther psoriasis,Inverse psoriasis APPLY TO PINK PATCHES ON THE FACE TWICE DAILY NEEDED FOR FLARES OF PSORIASIS 15 g 3 07/18/2022 Active Aspirin 81 MG Oral Capsule One day 0 08/05/2022 Active Atorvastatin Calcium 40 MG Oral Tablet (Lipitor)Indicatio ns:Hyperlipidemia LDL goal <130 TAKE 1 TABLET BY MOUTH EVERYDAY AT BEDTIME 90 Tablet 0 10/27/2022 Active Gabapentin 300 MG Oral Capsule (Neurontin)Indicat ions:Polyneuropath y Take 1 Capsule by mouth in the morning and 1 Capsule at noon and 1 Capsule before bedtime. 90 Capsule 5 01/19/2023 Active diazePAM 5 MG Oral Tablet (Valium) Take one tab one hour prior to MRI. Must have a drivers' cash clerk 1 Tablet 0 06/24/2022 3 Discontinue d(End of Procedure) documented as of this encounter (statuses as of 01/19/2023) Active Problems Problem Noted Date Carpal tunnel [...] as of this encounter (statuses as of 01/19/2023) Resolved Problems Problem Noted Date Resolved Date [...] Lipid Taxonomy. Other chronic sinusitis 10/17/19 18 Saw Handle Assembler's cramp 03/28/2019 documented as of this encounter (statuses as of 01/19/2023) Immunizations Name Administration Dates Next Due COVID-19 [...] 40 Q uit: 05/26/2014 Smokeless Tobacco: Never Tobacco Cessation:Counseling Given: Not Answered Comments:quit for 10 years then restarted Alcohol Use Standard Drinks/Week Comments Yes [...] as of this encounter Progress Notes * Armani Hough MD - 01/19/2023 3:28 PM EDT Cuong is really struggling. He had the left arm problems and EMG showed a neuropathy and carpal tunnel so that was treated. He has the right foot drop and sees Dr Hoover 01/23 for that. The past fourdays his legs are tingling and number. [facility] and he had a [facility] Ct last year that shows the hardware and other changes. No bowel or bladder issues yet. He feels unsteady onhis feet and needs a cane now. He had labs that were normal in November. Health Maintenance addressed. /Had the Coronovirus vaccine, 2 doses. Colonoscopy due soon. Had the other shots. Flu shot today. Past Medical History: Diagnosis Date Avulsion of [...] right Trochanteric bursitis of right hip 06/10/2020 Saw Handle Assembler's cramp Past Surgical History: Procedure Laterality Date COLONOSCOPY W/ LESION REMOVAL, SNARE 10/15/2010 polyp x1, path shows adenomatous tissue repeat in 5 years COLONOSCOPY, DIAGNOSTIC (RECTUM) 06/03/2016 7,6,2 mm polyps ascending, 6,3 mm polyps transverse colon Repeat 3 years/COLONOSCOPY FLEXIBLE PROXIMAL DIAGNOSTIC performed by Antoinette Godinez MD at ENDOSCOPY [facility] COLONOSCOPY, DIAGNOSTIC (RECTUM) 02/12/2020 2 adenomatous polyps in transverse colon, repeat 3 yrs / COLONOSCOPY FLEXIBLE PROXIMAL DIAGNOSTIC performed by Antoinette Godinez MD at ENDOSCOPY [facility] CT LOWER EXTREMITY W CONTRAST Right 05/26/2017 [...] Bilateral 08/17/2022 <50% ICA stenosis, vertebrals antegrade Review of patient's allergies indicates: No Known Allergies Social History Socioeconomic History Marital status: Spouse name: Not on file Number of children: 2 Years of education: Not on file Highest education level: Not on file Occupational History 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 90 Capsule 5 LISINOPRIL 40 MG PO TABS Take by [...] MOUTH EVERYDAY AT BEDTIME 90 Tablet 0 No current facility-administered medications for this visit. Lab Results Component Value Date/Time TSH - [facility] 1.56 11/18/2022 10:51 AM TSH - [facility] 1.87 01/21/2022 09:28 AM TSH - [facility] 1.54 12/09/2020 12:42 PM TSH - [facility] 1.90 07/14/2006 09:11 AM TSH - [facility] 2.23 03/10/2005 09:38 AM TSH - [facility] 2.45 06/29/2000 09:38 AM CBC Results: Results for orders placed or performed in visit on 05/31/04 CBC Result Value Ref Range WBC 6.20 4.00 - 10.80 K/uL RBC 5.13 4.50 - 5.25 M/uL HGB 16.5 14.0 - 16.5 g/dL HCT 49.4 (H) 40.0 - 47.0 % MCV 96.2 82.0 - 99.5 fL MCH 32.2 27.0 - 34.0 pg MCHC 33.5 32.0 - 36.0 g/dL RDW 12.5 11.5 - 15.5 % PLT 269 150 - 400 K/uL MPV 7.2 6.6 - 11.1 fL Results for orders placed or performed in visit on 11/18/22 COMPREHENSIVE METABOLIC PANEL Result Value Ref Range BUN 28 (H) 6 - 20 mg/dL Creatinine 1.2 0.6 - 1.2 mg/dL Estimated Glomerular Filtration Rate 65 >=60 mL/min Sodium 141 135 - 146 mmol/L Potassium 4.7 3.5 - 5.1 mmol/L Chloride 104 98 - 107 mmol/L CO2 24 22 - 32 mmol/L Anion Gap 13 7 - 15 mmol/L Glucose 105 70 - 120 mg/dL Albumin 4.0 3.8 - 5.0 g/dL AST 28 10 - 50 U/L Alkaline Phosphatase 67 35 - 130 U/L Bilirubin, Total 0.5 <=1.2 mg/dL Calcium 9.2 8.4 - 10.2 mg/dL Protein 5.8 (L) 6.0 - 8.3 g/dL ALT 37 10 - 50 U/L B12 and Folate grisel O: He has a right foot drop. A: Polyneuropathy (Primary) - Gabapentin 300 MG Oral Capsule (Neurontin); Take 1 Capsule by mouth in the morning and 1 Capsule at noon and 1 Capsule before bedtime. Need for prophylactic vaccination and inoculation against influenza - INFLUENZA VACC, QUAD, HIGH DOSE (FLUZONE HD) Definitely discuss this with Dr Hoover. Follow Up: Return in about 4 weeks (around 02/16/2023). documented in this encounter Nursing Notes * Marina Partida LPN - 01/19/2023 3:27 PM EDT C/o skin in legs are numb from waist down. Started 4 days ago. documented in this encounter Plan of Treatment Upcoming Encounters Date Type Specialty Care Team Description 01/23/2023 Office Visit Neurology Lynn Hoover MD [address] [facility] [place] [address] 02/23/2023 Office Visit Family Medicine Armani Hough MD [address] [place] [address] [place] [phone] Scheduled Procedures Name Priority Associated Diagnoses Date/Ti [...] as of this encounter Visit Diagnoses Diagnosis Polyneuropathy- Primary Unspecified hereditary and idiopathic peripheral neuropathy Need for prophylactic vaccination and inoculation against influenza documented in this encounter Care Teams Data Acquisition Technician Relationship Specialty Start Date End Date Armani Hough MD [address] [place] [address] [place] [address] PCP - General Family Medicine 09/01/22 documented as of this encounter
--- OUTSIDE RECORDS SUMMARY | 2023-02-20 21:36 | External Medical Summary | Summary of Care ---
Author Name Unknown Organization [facility] Address [address] [place] [address] Phone [phone] Care Team Providers Care Carrot Grader Inspector Name Role Phone Armani Hough MD Primary Care Provider [phone] Reason for Visit * Reason Comments Follow Up Right wrist Encounter Details Date Type Department Care Team Description 11/30/2022 Office Visit Orthopaedics [facility] [address] [place] [address] Gigi Harrell, [address] [place] [address] Primary osteoarthritis of first carpometacarpal joint of right hand* Allergies No known active allergiesdocumented as of this encounter (statuses as of 11/30/2022) Medications Medication Sig Dispensed Refills Start Date [...] Additional Information Patient taking differently: 50 mg BID(AM/PM), one pill twice a day, Reported on [...] FOR FLARES. 60 g 2 06/21/2022 Active diazePAM 5 MG Oral Tablet (Valium) Take one tab one hour prior to MRI. Must have a inventory associate and driver 1 Tablet 0 06/24/2022 Active Additional Information Patient not taking.Reported on 08/05/2022 Desonide 0.05 % External CreamIndications:Ot her psoriasis,Inverse psoriasis APPLY TO PINK PATCHES ON THE FACE TWICE DAILY NEEDED FOR FLARES OF PSORIASIS 15 g 3 07/18/2022 Active Aspirin 81 MG Oral Capsule One day 0 08/05/2022 Active Atorvastatin Calcium 40 MG Oral Tablet (Lipitor)Indication s:Hyperlipidemia LDL goal <130 TAKE 1 TABLET BY MOUTH EVERYDAY AT BEDTIME 90 Tablet 0 10/27/2022 Active Hospital, Clinic, or Other Facility Administered Medication Ordered Dose Route Frequency Start Date End Date Status lidocaine 1% 1 mL - triamcinolone acetonide 40 mg/mL 1 mL inj 2 mLIndications:Primary osteoarthritis of first carpometacarpal joint of right hand 2 mL IJ ONCE 11/30/2022 11/30/2022 Ended documented as of this encounter (statuses as of 11/30/2022) Active Problems Problem Noted Date Hx of nonmelanoma skin cancer 03/16/2021 Overview: [...] as of this encounter (statuses as of 11/30/2022) Resolved Problems Problem Noted Date Resolved Date [...] Lipid Taxonomy. Other chronic sinusitis 10/17/19 18 Soaking Pits Supervisor's cramp 03/28/2019 documented as of this encounter (statuses as of 11/30/2022) Immunizations Name Administration Dates Next Due COVID-19 mRNA, LNP-s, No Pre serve, 2-Dose Series (Moderna) 08/10/2020,07/13/2020 Pneumococcal Conjugate Vacc, 13 Valent (Prevnar) 09/20/2018,12/18/2012 Pneumococcal Polysaccharide PPV23 (Pneumovax) 02/27/2020,03/01/2019,09/18/2013,12/18 Seasonal Influenza Virus Vac cine, Unspecified Formulation 03/08/2018 Seasonal Influenza, Quadriva lent Hd (Fluzone Hd) 01/21/2022,02/12/2021 Seasonal Influenza, Quadriva lent, No Preserve, 6 Mons & Above, IM 02/08/2018 Seasonal Influenza, Quadriva lent, No Preserve, IM [...] have money to get more. Never true 05/21/2019 Sex Assigned at Date Recorded Male 09/23/2021 [...] as of this encounter Progress Notes * Gigi Harrell, - 11/30/2022 11:30 AM EDT Cuong Li [id number] Cuong Li is a 67 year old male who presents for f/u to [facility] for RIGHT CMC inj Cuong Li is here unaccompanied Handedness: right Last injected 08/30/22 TODAY: would like right injected left is still doing well Previous wrist injuries include: none Hand exam, bilateral Inspection:no swelling Palpation: tender to palpation at 1st CMC joint right AP: f/u as needed Primary osteoarthritis of first carpometacarpal joint of right hand (Primary) - lidocaine 1% 1 mL - triamcinolone acetonide 40 mg/mL 1 mL inj 2 mL - POINT OF CARE US MAJOR JOINT INJECTION, ORTHO Gigi Harrell DO Primary Care Sports Medicine Orthopaedics [facility] [address] [place] [address] Cuong Li [id number] Procedure Note, 1st carpal metacarpal joint, RIGHT Time out: Prior to injection, a time out was called to confirm the administration of appropriate medicine, patient name, procedure and confirm to the best of our ability and knowledge the presence of any necessary risks and benefits. Patient verbalizes understanding. Ultrasound utilized to guide injection Ultrasound required due to: high risk for complications without ultrasound guideance (risk for neurovascular damage) - This procedure has been explained to the patient in detail - Skin cleansed with alcohol swab. - Area numbed with ethyl chloride spray - injected using 25 g 1.5 inch needle, injected with lidocaine 1% 1 mL - triamcinolone acetonide 40mg/mL 1 mL inj 2 mL into carpal space under direct ultrasound guideance -minimal bleeding noted - dressing applied. - Patient was instructed on local wound care and the signs and symptoms of a possible wound infection. Gigi Harrell DO Primary Care Sports Medicine [facility] [place] [address] documented in this encounter Nursing Notes * LAURENT Cai - 11/30/2022 11:33 AM EDT Follow up Patient Follow up: Wrist Side: Right Date of last visit: 08/09/22 Improvement since last office visit: 0 percent. Prior Treatment: Injection Here for Test Results: No Goals for this appointment: injection documented in this encounter Plan of Treatment Upcoming Encounters Date Type Specialty Care Team Description 01/23/2023 Office Visit Neurology Lynn Hoover MD [address] [place] [address] [facility] [place] [phone] (work) Scheduled Procedures Name Priority Associated Diagnoses Date/Ti me COLONOSCOPY FLEXIBLE PROXIMAL DIAGNOSTIC Recall History of colon polyps Health Maintenance Due Date Last Done Comments AAA Screening 2018 05/30/2012 COVID-19 Vaccine (3 - Moderna risk series) 09/07/2020 08/10/2020, 07/13/2020 Depression Screening, Annual for Pts 12 and Over 12/08/2020 12/09/2019 Influenza Vaccine (FLU shot) (#1) 2023 01/21/2022, 02/12/2021, 02/27/2020, Additional history exists COLONOSCOPY-EVERY 3 YRS AGES 18-100 02/11/2023 02/12/2020, [...] exists Zoster Vaccines Completed 12/16/2020, 09/05, 03/30/2020 GARDASIL-HPV IMMUNIZATION SERIES Aged Out No longer eligible based on patient's age to complete this topic Hepatitis B Aged Out No longer eligi ble based on patient's age to complete this topic MENINGOCOCCAL (MENACTRA/MENVEO) Aged Out No longer eligible based on patient's age to complete this topic documented as of this encounter Medical Devices Not on filedocumented as of this encounter Procedures Procedure Name Priority Date/Time Associated Diagnosis Comments POINT OF CARE US MAJOR JOINT INJECTION, ORTHO Routine 11/30/2022 10:46 AM EDT Primary osteoarthritis of first carpometacarpal joint of right hand documented in this encounter Results * POINT OF CARE US MAJOR JOINT INJECTION, ORTHO (11/30/2022 10:46 AM EDT) Anatomical Region Laterality Modality Musculoskeletal Radiographic Ebony ging 11/30/2022 10:4 6 AM EDT Narrative 11/30/2022 11:43 AM EDT [facility] - Ultrasound Program Exam Date: 11/30/2022 Exam Type: Ortho Pc Tech: Gigi Harrell Attending: Gigi Harrell Worksheet: Ortho Injection Exam Information: Impression: Procedure Note, 1st carpal metacarpal joint, RIGHT ? Time out: Prior to injection, a time out was called to confirm the administration of appropriate medicine, patient name, procedure and confirm to the best of our ability and knowledge the presence of any necessary risks and benefits. Patient verbalizes understanding. ? Ultrasound utilized to guide injection Ultrasound required due to: high risk for complications without ultrasound guideance (risk for neurovascular damage) ? - This procedure has been explained to the patient in detail - Skin cleansed with alcohol swab. - Area numbed with ethyl chloride spray - injected using 25 g 1.5 inch needle, injected with lidocaine 1% 1 mL - triamcinolone acetonide 40 mg/mL 1 mL inj 2 mL into carpal space under direct ultrasound guideance -minimal bleeding noted - dressing applied. - Patient was instructed on local wound care and the signs and symptoms of a possible wound infection. ? Gigi Harrell DO Primary Care Sports Medicine [facility] [place] [address] Physician Signature: I reviewed the images and approve the documentation above.: Signed by Gigi Harrell on Wednesday, November 30, 2022 at 11:43:08 AM Procedure Note Gigi Harrell DO - 11/30/2022 [facility] - Ultrasound Program Exam Date: 11/30/2022 Exam Type: Ortho Pc Tech: Gigi Harrell Attending: Gigi Harrell Worksheet: Ortho Injection Exam Information: Impression: Procedure Note, 1st carpal metacarpal joint, RIGHT ? Time out: Prior to injection, a time out was called to confirm the administration ofappropriate medicine, patient name, procedure and confirm to the best ofour ability and knowledge the presence of any necessary risks andbenefits. Patient verbalizes understanding. ? Ultrasound utilized to guide injection Ultrasound required due to: high risk for complications without ultrasoundguideance (risk for neurovascular damage) ? - This procedure has been explained to the patient in detail - Skin cleansed with alcohol swab. - Area numbed with ethyl chloride spray - injected using 25 g 1.5 inch needle, injected with lidocaine 1% 1mL - triamcinolone acetonide 40 mg/mL 1 mL inj 2 mL into carpal spaceunder direct ultrasound guideance -minimal bleeding noted - dressing applied. - Patient was instructed on local wound care and the signs and symptoms ofa possible wound infection. ? Gigi Harrell, DO Primary Care Sports Medicine [facility] [place] [address] Physician Signature: I reviewed the images and approve the documentation above.: Signed byGigi Harrell on Wednesday, November 30, 2022 at 11:43:08 AM Gigi Harrell DO RAD ULTRASOUND documented in this encounter Visit Diagnoses Diagnosis Primary osteoarthritis of first carpometacarpal joint of right hand- Primary Primary localized osteoarthrosis, hand documented in this encounter Administered Medications Inactive Administered Medications - up to 3 most recent administrations Medication Order MAR Action Action Date Dose Rate Site lidocaine 1% 1 mL - triamcinolone acetonide 40 mg/mL 1 mL inj 2 mL 2 mL, Injection, ONCE, On Mon11/30/22 at 1215, For 1 dose, Lidocaine 1% 1mL Triamcinolone Acetonide 40 mg/mL 1 mL (Final concentration = 20 mg/mL) REFRIGERATE and SHAKE WELL Given 11/30/2022 11:40 AM EDT 2 mL Wrist Right documented in this encounter Care Teams Carrot Grader Inspector Relationship Specialty Start Date End Date Armani Hough MD [address] [place] [address] [place] [address] PCP - General Family Medicine 09/01/22 documented as of this encounter
--- OUTSIDE RECORDS SUMMARY | 2023-02-20 21:36 | External Medical Summary ---
Author Name Unknown Address Unknown Organization [id number]:LABORATORY [facility] - [address] [place] [address] Laboratory Report Ordering Provider Test Date Status REINALDOWHITNEY 01/23/2023 10:05:40 Final Observation Date Value Abnormality Reference (Units ) Status Nuclear IgG Ab [Ratio] in Serum by Immunoassay 01/23/2023 10:05:40 Negative Negative Final DNA double strand Ab [Presence] in Serum 01/23/2023 10:05:40 Negative Negative Final DOUBLE STRANDED DNA VALUE - [facility] 01/23/2023 10:05:40 <0.6 <20 (IU/mL) Final Extractable nuclear Ab [Presence] in Serum 01/23/2023 10:05:40 Negative Negative Final Nuclear IgG Ab [Ratio] in Serum by Immunoassay 01/23/2023 10:05:40 <0.1 <0.7 (Ratio) Final Performing Location LABORATORY [facility] - [facility] [address] [place] [address]
--- OUTSIDE RECORDS SUMMARY | 2023-02-20 21:36 | External Medical Summary ---
Author Name Unknown Address Unknown Organization [id number]:LABORATORY [facility] - [address] [place] [address] Laboratory Report Ordering Provider Test Date Status WHITNEY NAJERA 01/23/2023 10:05:40 Final Observation Date Value Abnormality Reference (Units ) Status Borrelia burgdorferi IgG and IgM [Interpretation] in Serum by Immunoassay 01/23/2023 10:05:40 Negative Negative Final Performing Location LAB[facility]ATORY [facility] - [address] [facility] [facility] [address]
--- OUTSIDE RECORDS SUMMARY | 2023-02-20 21:36 | External Medical Summary | Summary of Care ---
Author Name Unknown Organization [facility] Address [address] [place] [address] Phone [phone] Care Team Providers Care Business Editor Name Role Phone Armani Hough MD Primary Care Provider + [phone] Reason for Visit * Reason Comments Outpatient Testing Encounter Details Date Type Department Care Team Description 11/18/2022 Laboratory Laboratory [address] [place] [phone] [place] [address] Nausea; Epigastric pain Allergies No known active allergiesdocumented as of this encounter (statuses as of 11/18/2022) Medications Medication Sig Dispensed Refills Start Date [...] hour prior to MRI. Must have a carrier driver 1 Tablet 0 06/24/2022 Active Additional [...] AT BEDTIME 90 Tablet 0 10/27/2022 Active documented as of this encounter (statuses as of 11/18/2022) Active Problems Problem Noted Date Hx of [...] as of this encounter (statuses as of 11/18/2022) Resolved Problems Problem Noted Date Resolved Date [...] Lipid Taxonomy. Other chronic sinusitis 10/17/19 18 Home Improvement Contractor's cramp 03/28/2019 documented as of this encounter (statuses as of 11/18/2022) Immunizations Name Administration Dates Next Due COVID-19 [...] Yes 05/26/2015 documented as of this encounter Plan of Treatment Upcoming Encounters Date Type Specialty Care Team Description 11/23/2022 Imaging Radiology 01/23/2023 Office Visit Neurology Lynn Hoover MD [address] [place] [phone] Pending Results Name Type Priority Associated Diagnoses Date /Time COMPREHENSIVE METABOLIC PANEL Lab Routine Nausea Epigastric pain 11/18/2022 10:51 AM EDT CBC WITH WBC DIFFERENTIAL AND ANEMIA REFLEX WORKUP Lab Routine Nausea Epigastric pain 11/18/2022 10:51 AM EDT LIPASE Lab Routine Nausea Epigastric pain 11/18/2022 10:51 AM EDT ANEMIA CBC Lab Routine Nausea Epigastric pain 11/18/2022 10:51 AM EDT DIFFERENTIAL, AUTOMATED Lab Routine Nausea Epigastric pain 11/18/2022 10:51 AM EDT ANEMIA REFLEX CHEMISTRY HOLD Lab Routine Nausea Epigastric pain 11/18/2022 10:51 AM EDT Scheduled Procedures Name Priority Associated Diagnoses Date/Ti me COLONOSCOPY FLEXIBLE PROXIMAL DIAGNOSTIC Recall History of colon polyps Health Maintenance Due Date Last Done Comments COVID-19 Vaccine (3 - Moderna risk series) 09/07/2020 08/10/2020, 07/13/2020 Depression Screening, Annual for Pts 12 and Over 12/08/2020 12/09/2019 Influenza Vaccine (FLU shot) (#1) 2023 01/21/2022, 02/12/2021, 02/27/2020, Additional history exists COLONOSCOPY-EVERY 3 YRS AGES 18-100 02/11/2023 02/12/2020, 02/12/2020, 06/03/2016, Additional history exists GFR 07/04/2023 07/04/2022, 01/06, 01/23/2022, Additional history exists Albumin/Creatinine Ratio 06/28/2024 06/28/2021 Diabetes Screening 01/23/2025 01/23/2022, 0 01/23/2022, 01/22/2022, Additional history exists Lipid Panel 09/02/2027 09/01/2022, 06/09, 09/14/2020, Additional history exists DTaP,Tdap,and Td Vaccines (3 - Td or Tdap) 10/07/2032 10/07/2022, 12/13/2011, 07/06/2006 Pneumococcal Vaccine: 65+ Years Completed 02/27/2020, 03/01/2019, 09/20/2018, Additional history exists Zoster Vaccines Completed 12/16/2020, 09/05, 03/30/2020 ABDOMINAL AORTIC ANEURYSM (AAA) SCREENING Completed 01/22/2022, 05/30/2012, 03/14/2000 GARDASIL-HPV IMMUNIZATION SERIES Aged Out No longer [...] as of this encounter Visit Diagnoses Diagnosis Nausea Nausea alone Epigastric pain Abdominal pain, epigastric documented in this encounter Care Teams Business Editor Relationship Specialty Start Date End Date Armani Hough MD [address] [place] [address] [place] [address] PCP - General Family Medicine 09/01/22 documented as of this encounter
--- OUTSIDE RECORDS SUMMARY | 2023-02-20 21:36 | External Medical Summary ---
Author Name Unknown Address Unknown Organization [id number][facility] [place] [address] Laboratory Report Ordering Provider Test Date Status WHITNEY NAJERA 01/23/2023 10:05:40 Final Observation Date Value Abnormality Reference (Units ) Status Creatinine 01/23/2023 10:05:40 0.8 0.6-1.2 (mg/dL) Final Glomerular filtration rate/1.73 sq M.predicted [Volume Rate/Area] in Serum, Plasma or Blood by Creatinine-based formula (CKD-EPI) 01/23/2023 10:05:40 >90 >=60 (mL/min) Final Performing Location [facility] [place] [address]
--- OUTSIDE RECORDS SUMMARY | 2023-02-20 21:36 | External Medical Summary | Summary of Care ---
Author Name Unknown Organization [facility] Address [address] [place] [address] Phone [phone] Care Team Providers Care Magnesium Mill Operator Name Role Phone Armani Hough MD Primary Care Provider + [phone] Reason for Visit * Reason Comments Acute Encounter Details Date Type Department Care Team Description 11/18/2022 Office Visit Family Medicine [address] [phone] Jannie Carty PA-C [address] [place] [address] [place] [address] Epigastric pain*; Nausea Allergies No known active allergiesdocumented as of [...] hour prior to MRI. 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 Other chronic sinusitis 10/17/19 18 Unhairing Machine Operator's cramp 03/28/2019 documented as of [...] Sign Reading Time Taken Comments Blood Pressure 134/86 11/18/2022 10:32 AM EDT Pulse 76 11/18/2022 10:32 AM EDT Temperature 36.4 C (97.6 F) 11/18/2022 10:32 AM E DT Respiratory Rate - - Oxygen Saturation - - Inhaled Oxygen Concentration - - Weight 84.1 kg (185 lb 5 oz) 11/18/2022 10:32 AM EDT Height 175.3 cm (5' 9") 11/18/2022 10:32 AM EDT Body Mass Index 27.37 11/18/2022 10:32 AM EDT documented in this [...] as of this encounter Progress Notes * Jannie Carty PA-C - 11/18/2022 10:37 AM EDT Nursing Notes: Marina Partida LPN 11/18/22 1037 Sign at exiting of workspace vomitting and diarrhea for couple weeks. Has had stomach upset. Lost weight. Pt here today with ongoing nausea, epigastric discomfort for the past 7-8 months. Pt did have some vomiting and diarrhea a couple of weeks ago but this is clearing. Pt doesn't normally have vomiting or diarrhea. Pt states that this is worse with food. Pt isn't eating as much. Has lost about 15 pounds in the past 4 months. Pt denies fever, chills, blood in stool, black stool, mucous in stool, urinary sx, night sweats. He really watches what he eats because everything seem to bother his stomach. Pt is taking omeprazole twice daily. He denies heartburn, belching. He does have some bloating. Still has GB. Review of patient's allergies indicates: No Known Allergies Current Outpatient Medications Medication Sig Dispense Refill [...] 1/2 TABLET DAILY AT BEDTIME (Patient taking differently:One at bedtime) 90 Tab 1 Fluocinonide 0.05 % External Cream Apply to rash on the abdomen twice daily as needed for flares 30 g 0 Baclofen 10 MG Oral Tablet (Lioresal) TAKE 2 TABLETS BY MOUTH IN THE MORNING AND 1 TABLET IN THE EVENING 270 Tab 1 busPIRone HCl 15 MG Oral Tablet (Buspar) Take 15 Tablets by mouth in the morning and 15 Tabletsat noon and 15 Tablets before bedtime. Metoprolol Tartrate 25 MG Oral Tablet (Lopressor) one pill twice a day (Patient taking differently: 2 Tablets in the morning and 2 Tablets before bedtime. one pill twice a day.) 180 Tablet 1 Omeprazole 20 MG Oral Capsule Delayed Release (PriLOSEC) Take by mouth 1 Capsule in the morning. 90 Capsule 1 Hydrocortisone 2.5 % External Ointment Apply to rash on the face twice daily x 3-4 days, then 2-3 x's per week. 15 g 1 Tacrolimus 0.1 % External Ointment (Protopic) APPLY TO PSORIASIS ON THE GENITALS TWICE DAILY ASNEEDED FOR FLARES. 60 g 2 diazePAM 5 MG Oral Tablet (Valium) Take one tab one hour prior to MRI. 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 company truck driver (Patient not taking: Reported on 08/05/2022) 1 Tablet 0 Desonide 0.05 % External Cream APPLY TO PINK PATCHES ON THE FACE TWICE DAILY NEEDED FOR FLARES OF PSORIASIS 15 g 3 Aspirin 81 MG Oral Capsule One day Atorvastatin Calcium 40 MG Oral Tablet (Lipitor) TAKE 1 TABLET BY MOUTH EVERYDAY AT BEDTIME 90 Tablet 0 No current facility-administered medications for this visit. Past Medical History: Diagnosis Date Avulsion of hamstring muscle, right, initial encounter 05/11/2017 Benign neoplasm of colon 10/15/2010 polyp x1, path shows adenomatous tissue repeat in 5 years Calcific tendonitis of right thigh 06/01/2017 CT CKD (chronic kidney disease), stage II 09/14/2020 EGFR 71 Dyslipidemia, goal LDL below 160 Encounter for hepatitis C screening test for low risk patient 09/08/2016 negative Esophageal reflux Essential and other specified forms of tremor Generalized anxiety disorder Hepatitis A antibody positive 09/08/2016 HTN, goal below 140/90 Impotence of organic origin Inflamed seborrheic keratosis 07/27/[address] Victoria Major depressive disorder, single episode, moderate (HCC) Other chronic sinusitis Other psoriasis Raynaud's syndrome Rosacea Rupture of hamstring tendon 05/26/2017 right Trochanteric bursitis of right hip 06/10/2020 Unhairing Machine Operator's cramp Social History Socioeconomic History Marital status: Spouse name: Not on file Number of children: 2 Years of education: Not on file Highest education level: Not on file Occupational History 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 Two children in good health. 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 GENERAL: alert, healthy and no distress NECK: supple, no adenopathy HEART: regular rate & rhythm, no murmur and no gallops LUNGS: chest symmetric with normal AP diameter, no chest deformities noted, no chest wall tenderness, lungs clear to auscultation ABDOMEN: abdomen soft, normal bowel sounds and no masses or organomegaly. Mild epigastric discomfort. No rebound or guarding A:Epigastric pain (Primary) - US ABDOMEN LIMITED; Future; Expected date: 11/24/2022 - COMPREHENSIVE METABOLIC PANEL; Future; Expected date: 11/18/2022 - CBC WITH WBC DIFFERENTIAL AND ANEMIA REFLEX WORKUP; Future; Expected date: 11/18/2022 - LIPASE; Future; Expected date: 11/18/2022 Nausea - US ABDOMEN LIMITED; Future; Expected date: 11/24/2022 - COMPREHENSIVE METABOLIC PANEL; Future; Expected date: 11/18/2022 - CBC WITH WBC DIFFERENTIAL AND ANEMIA REFLEX WORKUP; Future; Expected date: 11/18/2022 - LIPASE; Future; Expected date: 11/18/2022 Will check some labs. Will get abdominal US. If this is ok, will get EGD and refer to GI. Any questions/problems, please call. If anything changes, worsens, develops new sx, please call [facility]. Follow Up: Return if symptoms worsen or fail to improve. Jannie Carty PA-C documented in this encounter Nursing Notes * Marina Partida LPN - 11/18/2022 10:33 AM EDT vomitting and diarrhea for couple weeks. Has had stomach upset for months. Lost weight. documented in this encounter Plan of Treatment Upcoming Encounters Date Type Specialty Care Team Description 11/23/2022 Imaging Radiology 01/23/2023 Office Visit Neurology Lynn Hoover MD [address] [place] [phone] Pending Results Name Type Priority Associated Diagnoses Date /Time COMPREHENSIVE METABOLIC PANEL Lab Routine Nausea Epigastric pain 11/18/2022 10:51 AM EDT CBC WITH WBC DIFFERENTIAL AND ANEMIA REFLEX WORKUP Lab Routine Nausea Epigastric pain 11/18/2022 10:51 AM EDT LIPASE Lab Routine Nausea Epigastric pain 11/18/2022 10:51 AM EDT Scheduled Orders Name Type Priority Associated Diagnoses Orde r Schedule US ABDOMEN LIMITED Medical Imaging Routine Nausea Epigastric pain Expected: 11/24/2022, Expires: 12/20/2023 COMPREHENSIVE METABOLIC PANEL Lab Routine Nausea Epigastric pain Expected: 11/18/2022 (Approximate), Expires: 11/18/2023 CBC WITH WBC DIFFERENTIAL AND ANEMIA REFLEX WORKUP Lab Routine Nausea Epigastric pain Expected: 11/18/2022 (Approximate), Expires: 11/19/2023 LIPASE Lab Routine Nausea Epigastric pain Expected: 11/18/2022 (Approximate), Expires: 11/18/2023 Scheduled Procedures Name Priority Associated Diagnoses Date/Ti [...] as of this encounter Visit Diagnoses Diagnosis Epigastric pain- Primary Abdominal pain, epigastric Nausea Nausea alone documented in this encounter Care Teams Magnesium Mill Operator Relationship Specialty Start Date End Date Armani Hough MD [address] [place] [address] [place] [address] PCP - General Family Medicine 09/01/22 documented as of this encounter
--- OUTSIDE RECORDS SUMMARY | 2023-02-20 21:36 | External Medical Summary ---
Author Name Unknown Address Unknown Organization [facility] [address] [place] [address] Laboratory Report Ordering Provider Test Date Status WHITNEY NAJERA 01/23/2023 10:05:40 Final Observation Date Value Abnormality Reference (Units ) Status HbA1C 01/23/2023 10:05:40 5.2 4.0-5.6 (% ) Final Performing Location [facility] - [address] [place] [address]
--- OUTSIDE RECORDS SUMMARY | 2023-02-20 21:36 | External Medical Summary ---
Author Name Unknown Address Unknown Organization [id number] [place] [address] [place] [address] Laboratory Report Ordering Provider Test Date Status EUFEMIA CHRISTIANSON 11/18/2022 10:51:30 Final Observation Date Value Abnormality Reference (Units ) Status TSH 11/18/2022 10:51:30 1.56 0.27-4.20 (uIU/mL) Final Performing Location [facility] - [address] [place] [address]
--- OUTSIDE RECORDS SUMMARY | 2023-02-20 21:36 | External Medical Summary | Summary of Care ---
Author Name Unknown Organization [facility] Address [address] [facility] [place] [address] Phone [phone] Care Team Providers Care Molder Operator Name Role Phone Armani Hough MD Primary Care Provider + [phone] Reason for Visit * Reason Comments Acute Encounter Details Date Type Department Care Team Description 12/08/2022 Office Visit Family Medicine [address] [phone] Armani Hough MD [address] [place] [address] [place] [address] Right foot drop* Allergies No known active allergiesdocumented as of this encounter (statuses as of 12/08/2022) Medications Medication Sig Dispensed Refills Start Date [...] hour prior to MRI. Must have a milk delivery driver 1 Tablet 0 06/24/2022 Active Desonide 0.05 % External CreamIndications:Ot her psoriasis,Inverse psoriasis APPLY TO PINK PATCHES ON THE FACE TWICE DAILY NEEDED FOR FLARES OF PSORIASIS 15 g 3 07/18/2022 Active Aspirin 81 MG Oral Capsule One day 0 08/05/2022 Active Atorvastatin Calcium 40 MG Oral Tablet (Lipitor)Indication s:Hyperlipidemia LDL goal <130 TAKE 1 TABLET BY MOUTH EVERYDAY AT BEDTIME 90 Tablet 0 10/27/2022 Active predniSONE 20 MG Oral Tablet (Deltasone)Indicati ons:Right foot drop two pills daily with food for 5 days, then one daily with food 15 Tablet 0 12/08/2022 12/18/2022 Active documented as of this encounter (statuses as of 12/08/2022) Active Problems Problem Noted Date Hx of [...] as of this encounter (statuses as of 12/08/2022) Resolved Problems Problem Noted Date Resolved Date [...] Lipid Taxonomy. Other chronic sinusitis 10/17/19 18 Heel Trimmer's cramp 03/28/2019 documented as of this encounter (statuses as of 12/08/2022) Immunizations Name Administration Dates Next Due COVID-19 [...] Sign Reading Time Taken Comments Blood Pressure 138/89 12/08/2022 9:32 AM EDT Pulse 76 12/08/2022 9:32 AM EDT Temperature 36.4 C (97.6 F) 12/08/2022 9:32 AM ED T Respiratory Rate 16 12/08/2022 9:32 AM EDT Oxygen Saturation - - Inhaled Oxygen Concentration - - Weight 80.8 kg (178 lb 2 oz) 12/08/2022 9:32 AM EDT Height - - Body Mass Index 26.3 11/18/2022 10:32 AM EDT documented in this [...] Progress Notes * Armani Hough MD - 12/08/2022 9:31 AM EDT Nursing Notes: Marina Partida, KUNAL 12/08/22 0934 Sign at exiting of workspace Trouble with walking. Right leg and foot pain and numbness since Zack night. Cuong says this seemed to start on 12/05 but had gotten more noticeable. He was worked up for imbalance through neurology and MRI in July suggest a small left cerebral infarct. Echo was normal Including bubble study to rule out a septal defect. He had labs too. He is not having pain but has to watchlest he trip. He is not having back pain. Past Medical History: Diagnosis Date Avulsion of [...] right Trochanteric bursitis of right hip 06/10/2020 Heel Trimmer's cramp Past Surgical History: Procedure Laterality Date COLONOSCOPY W/ LESION REMOVAL, SNARE 10/15/2010 polyp x1, path shows adenomatous tissue repeat in 5 years COLONOSCOPY, DIAGNOSTIC (RECTUM) 06/03/2016 7,6,2 mm polyps ascending, 6,3 mm polyps transverse colon Repeat 3 years/COLONOSCOPY FLEXIBLE PROXIMAL DIAGNOSTIC performed by Antoinette Godinez MD at [facility] COLONOSCOPY, DIAGNOSTIC (RECTUM) 02/12/2020 2 adenomatous polyps in transverse colon, repeat 3 yrs / COLONOSCOPY FLEXIBLE PROXIMAL DIAGNOSTIC performed by Antoinette Godinez MD at [facility] CT LOWER EXTREMITY W CONTRAST Right 05/26/2017 complete avulsion right hamstring tendon with 3 cm gap, mild hip arthritis, calcific tendonitis right gluteus medius CT SINUSES WO CONTRAST 10/09/2009 chronic sinusitis ECHO, COMPLETE (2D), TRANS-THORACIC N/A 12/17/2020 normal LV size and function, EF 55-59%, grade I diastolic dysfunction, LAE 4.5 cm MRI C SPINE W CONT 03/10/2014 severe bilateral foramen narrowing L3-4, L4-5, L5-S1 and severe left neural foramen narrowing L2-3 US ABDOMEN LIMITED 05/30/2012 normal, no kidney stones US ABDOMEN LIMITED 11/23/2022 moderate fatty liver Review of patient's allergies indicates: No Known Allergies Social History Socioeconomic History Marital status: Spouse name: Not on file Number of children: 2 Years of education: Not on file Highest education level: Not on file Occupational History 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 Two children in good health. 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 Must have a milk delivery driver (Patient not taking: Reported on 08/05/2022) [...] No current facility-administered medications for this visit. Immunization History Administered Date(s) Administered COVID-19 mRNA, LNP-s, No Preserve, 2-Dose Series (Moderna) 07/13/2020, 08/10/2020 Pneumococcal Conjugate Vacc, 13 Valent (Prevnar) 12/18/2012, 09/20/2018 Pneumococcal Polysaccharide PPV23 (Pneumovax) 12/18/2008, 09/18/2013, 03/01/2019, 02/27/2020 Seasonal Influenza Virus Vaccine, Unspecified Formulation 03/08/2018 Seasonal Influenza, Quadrivalent Hd (Fluzone Hd) 02/12/2021, 01/21/2022 Seasonal Influenza, Quadrivalent, No Preserve, 6 Mons & Above, IM 02/08/2018 Seasonal Influenza, Quadrivalent, No Preserve, IM 03/16/2015, 01/15/2016, 02/09/2017, 03/01/2019 Seasonal Influenza, Split, IIV3, With Preserve, Inj 05/08/2007, 01/06/2010, 02/17/2011, 02/16/2012, 01/24/2013, 01/07/2014, 03/01/2019 Seasonal Influenza, Trivalent, Adjuvanted, 65+ yrs 02/27/2020 TD - Tetanus/Diptheria (ADULT) 07/06/2006 TDAP (age 10 and older)(Boostrix) 12/13/2011 Zoster Vaccine Recombinant (Shingrix) 03/30/2020, 09/21/2020, 12/16/2020 Lab Results Component Value Date/Time TSH - [facility] 1.56 11/18/2022 10:51 AM TSH - [facility] 1.87 01/21/2022 09:28 AM TSH - [facility] 1.54 12/09/2020 12:42 PM TSH - [facility] 1.90 07/14/2006 09:11 AM TSH - [facility] 2.23 03/10/2005 09:38 AM TSH - [facility] 2.45 06/29/2000 09:38 AM Results for orders placed or performed in [...] 37 10 - 50 U/L B12 and folate are normal as well. O: Blood pressure 138/89, pulse 76, temperature 36.4 C (97.6 F), temperature source Tympanic, resp. rate 16, weight 80.8 kg (178 lb 2 oz). He definitely does have a right foot drop, can't really raise the toes. He has good pulses. Knee jerks are normal. I don't really get ankle jerks on either side A: Right foot drop (Primary) - predniSONE 20 MG Oral Tablet (Deltasone); two pills daily with food for 5 days, then one daily with food This likely is going to need further evaluation if the steroids don't help. Follow Up: Return if symptoms worsen or fail to improve. documented in this encounter Nursing Notes * Marina Partida LPN - 12/08/2022 9:30 AM EDT Trouble with walking. Right leg and foot pain and numbness since Monday night. documented in this encounter Plan of Treatment Upcoming Encounters Date Type Specialty Care Team Description 01/23/2023 Office Visit Neurology Lynn Hoover MD [address] [place] [address] Scheduled Procedures Name Priority Associated Diagnoses Date/Ti [...] as of this encounter Visit Diagnoses Diagnosis Right foot drop- Primary Other acquired deformity of ankle and foot documented in this encounter Care Teams Molder Operator Relationship Specialty Start Date End Date Armani Hough MD [address] [place] [address] [place] [address] PCP - General Family Medicine 09/01/22 documented as of this encounter
--- OUTSIDE RECORDS SUMMARY | 2023-02-20 21:36 | External Medical Summary ---
Author Name Unknown Address Unknown Organization K01:[facility] [place] [address] [place] [address] Laboratory Report Ordering Provider Test Date Status SAMMY,KOARACELY 11/18/2022 10:51:30 Final Observation Date Value Abnormality Reference (Units ) Status Iron 11/18/2022 10:51:30 93 45-176 (ug/dL) Final Iron-binding capacity 11/18/2022 10:51:30 233 Below low normal 250-425 (ug/dL) Final Transferrin Sat % 11/18/2022 10:51:30 40 15-55 (%) Final Performing Location [facility] [place] [address] [place] [address]
--- OUTSIDE RECORDS SUMMARY | 2023-02-20 21:36 | External Medical Summary | Summary of Care ---
Author Name Unknown Organization [facility] Address [address] [place] [facility] [place] [address] Phone [phone] Care Team Providers Care Environmental Studies Program Director Name Role Phone Armani Hough MD Primary Care Provider + [phone] Reason for Visit * Reason Comments Outpatient Testing Encounter Details Date Type Department Care Team Description 01/23/2023 Laboratory Laboratory [facility] [place] [address] [place] [id number] [facility] Scenery [address] [place] [address] Arrived Allergies No known active allergiesdocumented as of [...] one hour prior to MRI (must have moving van driver) 2 Tablet 0 01/23/2023 Active documented [...] Lipid Taxonomy. Other chronic sinusitis 10/17/19 18 Perforator's cramp 03/28/2019 documented as of this encounter [...] Office Visit Family Medicine Armani Hough MD [address] [place] [address] [place] [id number] 03/14/2023 NeuroDiagnostic Study Neurophysiology Lynn Hoover MD [address] [facility] [place] [address] Scheduled Procedures Name Priority Associated Diagnoses Date/Ti [...] filedocumented as of this encounter Care Teams Environmental Studies Program Director Relationship Specialty Start Date End Date Armani Hough MD [address] [place] [address] [place] [address] PCP - General Family Medicine 09/01/22 documented as of this encounter
--- OUTSIDE RECORDS SUMMARY | 2023-02-20 21:36 | External Medical Summary ---
Author Name Unknown Address Unknown Organization [id number]:LABORATORY [facility] [place] - [address] [place] [address] Laboratory Report Ordering Provider Test Date Status EUFEMIA CHRISTIANSON 11/18/2022 10:51:30 Final Observation Date Value Abnormality Reference (Units ) Status Lipase 11/18/2022 10:51:30 97 Above high normal 13 -60 (U/L) Final Performing Location [facility] - [address] [place] [address]
--- OUTSIDE RECORDS SUMMARY | 2023-02-20 21:36 | External Medical Summary ---
Author Name Unknown Address Unknown Organization K01:LABORATORY [facility] [place] - [address] [place] [address] Laboratory Report Ordering Provider Test Date Status EUFEMIA CHRISTIANSON 11/18/2022 10:51:30 Final Observation Date Value Abnormality Reference (Units ) Status Ferritin 11/18/2022 10:51:30 830 Above high normal 30 -400 (ng/mL) Final Performing Location [facility] - [address] [place] [address]
--- OUTSIDE RECORDS SUMMARY | 2023-02-20 21:36 | External Medical Summary | Summary of Care ---
Author Name Unknown Organization [facility] Address [address] [place] [address] Phone [phone] Care Team Providers Care Shell Reprint Operator Name Role Phone Armani Hough MD Primary Care Provider Encounter Details Date Type Department Care Team Description 07/18/2022 Telephone Neurology [facility] [address] [place] [address] Services, Scheduling [address] [place] [address] Allergies No known active allergiesdocumented as of this encounter (statuses as of 12/17/2022) Medications Medication Sig Dispensed Refills Start Date [...] hour prior to MRI. Must have a auto [place]ulaway driver 1 Tablet 0 06/24/2022 Active Desonide 0.05 % External CreamIndications:Ot her psoriasis,Inverse psoriasis APPLY TO PINK PATCHES ON THE FACE TWICE DAILY NEEDED FOR FLARES OF PSORIASIS 15 g 3 07/18/2022 Active documented as of this encounter (statuses as of 12/17/2022) Active Problems Problem Noted Date Hx of [...] as of this encounter (statuses as of 12/17/2022) Resolved Problems Problem Noted Date Resolved Date [...] Lipid Taxonomy. Other chronic sinusitis 10/17/19 18 Jewelry Sales's cramp 03/28/2019 documented as of this encounter (statuses as of 12/17/2022) Immunizations Name Administration Dates Next Due COVID-19 [...] 01/23/2023 Office Visit Neurology Lynn Hoover MD [address] [place] [address] [phone] Scheduled Procedures Name Priority Associated Diagnoses Date/Ti [...] filedocumented as of this encounter Care Teams Shell Reprint Operator Relationship Specialty Start Date End Date Armani Hough MD [address] [place] [address] [place] [address] PCP - General Family Medicine 09/01/22 documented as of this encounter
--- OUTSIDE RECORDS SUMMARY | 2023-02-20 21:36 | External Medical Summary | Summary of Care ---
Author Name Unknown Organization [facility] Address [address] [place] [address] Phone [phone] Care Team Providers Care Cyber Software Engineer Name Role Phone Armani Hough MD Primary Care Provider + [phone] Reason for Visit * Reason Onset Date Comments Appointment 11/17/2022 Vomiting, diarrh ea x1 wk; wt loss of 20 lbs over approx 6 months Encounter Details Date Type Department Care Team Description 11/17/2022 Telephone Family Medicine [address] [phone] Armani Hough MD [address] [place] [address] Appointment (Vomiting, diarrhea x1 wk; wt ... Allergies No known active allergiesdocumented as of [...] hour prior to MRI. Must have a local truck driver 1 Tablet 0 06/24/2022 Active [...] Lipid Taxonomy. Other chronic sinusitis 10/17/19 18 Child Care Nurse's cramp 03/28/2019 documented as of this encounter [...] Miscellaneous Notes * Telephone Encounter - RUTHY Gibbs - 11/17/2022 2:25 PM EDT Pt calling to schedule acute visit for intermittent vomiting and diarrhea x1 wk. Appt booked morgan ulrich/ TAI in office. Pt then stated he has also unintentionally lost approx 20 lbs in the past 6 months (previous 205 down to 185). Will route to clinical staff so aware. documented in this encounter Plan of Treatment Upcoming Encounters Date Type Specialty Care Team Description 11/18/2022 Office Visit Family Medicine Jannie Carty PA-C [address] [place] [address] [place] [phone] Arrived 01/23/2023 Office Visit Neurology Lynn Hoover MD [address] [facility] [place] [address] Scheduled Procedures Name Priority Associated Diagnoses Date/Ti [...] filedocumented as of this encounter Care Teams Cyber Software Engineer Relationship Specialty Start Date End Date Armani Hough MD [address] [place] [address] [place] [address] PCP - General Family Medicine 09/01/22 documented as of this encounter
--- OUTSIDE RECORDS SUMMARY | 2023-02-20 21:36 | External Medical Summary ---
Author Name Unknown Address Unknown Organization K01:LABORATORY [facility] [place] - [address] [place] [address] Laboratory Report Ordering Provider Test Date Status WHITNEY NAJERA 01/23/2023 10:05:40 Final Observation Date Value Abnormality Reference (Units ) Status Erythrocyte sedimentation rate by Photometric method 01/23/2023 10:05:40 15 <20 (mm/hour) Final Performing Location LABORATORY [facility] [place] - [address] [place] [address]
--- OUTSIDE RECORDS SUMMARY | 2023-02-20 21:36 | External Medical Summary ---
Author Name Unknown Address Unknown Organization K01:LABORATORY [facility] - [address] [place] [address] Laboratory Report Ordering Provider Test Date Status EUFEMIA CHRISTIANSON 11/18/2022 10:51:30 Final Observation Date Value Abnormality Reference (Units ) Status Vitamin B12 11/18/2022 10:51:30 939 978-1478 (pg/mL) Final Performing Location LABORATORY [facility] - [address] [place] [address]
--- OUTSIDE RECORDS SUMMARY | 2023-02-20 21:36 | External Medical Summary ---
Author Name Unknown Address Unknown Organization K01:[facility] [place] [address] [place] [address] Laboratory Report Ordering Provider Test Date Status SAMMYEUFEMIA 11/18/2022 10:51:30 Final Observation Date Value Abnormality Reference (Units ) Status BUN 11/18/2022 10:51:30 28 Above high normal 6-20 (mg/dL) Final Creatinine 11/18/2022 10:51:30 1.2 0.6-1.2 (mg/dL) Final Glomerular filtration rate/1.73 sq M.predicted [Volume Rate/Area] in Serum, Plasma or Blood by Creatinine-based formula (CKD-EPI) 11/18/2022 10:51:30 65 >=60 (mL/min) Final Performing Location LAB[facility]ORY [facility] - [address] [place] [address]
--- OUTSIDE RECORDS SUMMARY | 2023-02-20 21:36 | External Medical Summary | Summary of Care ---
Author Name Unknown Organization [facility] Address [address] [place] [address] Phone [phone] Care Team Providers Care Entertainment Production Professional Name Role Phone Armani Hough MD Primary Care Provider + [phone] Reason for Referral * Precert (Within 10 days (routine)) - Pending Review Specialty Diagnoses / Procedures Referred By Contac t Referred To Contact Radiology Diagnoses Weakness of right lower extremity Severe low back pain Procedures MRI L SPINE W WO CONTRAST Reinaldo Hoover MD [address] [place] [address] Referral ID Status Reason Start Date Expiration Date V isits Requested Visits Authorized [id number] Pending Review 01/23/2023 999 999 * Precert (Within 10 days (routine)) - Pending Review Specialty Diagnoses / Procedures Referred By Contac t Referred To Contact Radiology Diagnoses Thoracic disc disorder with myelopathy Procedures MRI T SPINE WO CONTRAST Reinaldo Hoover MD [address] [place] [address] Referral ID Status Reason Start Date Expiration Date V isits Requested Visits Authorized [id number] Pending Review 01/23/2023 999 999 * Evaluate & Treat - Unlimited Visits (Within 3 days (urgent)) - Pending Review Specialty Diagnoses / Procedures Referred By Mame mckeon Referred To Contact Physical Therapy / Physical Medicine And Rehab Diagnoses Peroneal palsy, right Reinaldo Hoover MD [address] [place] [address] Referral ID Status Reason Start Date Expiration Date Visits Requested Visits Authorized [id number] Pending Review Specialty Services Required 01/23/2023 999 [...] Diagnoses Right foot drop Armani Hough MD [address] [place] [address] [place] [address] Referral ID Status Reason Start Date Expiration Date Visits Requested Visits Authorized [id number] Pending Review Specialty Services Required 12/19/2022 999 999 Encounter Details Date Type Department Care Team Description 01/23/2023 Office Visit Neurology [facility] [place] [address] [facility] [place] [address] Reinaldo Hoover MD [address] [place] [address] Peroneal palsy, right*; Thoracic disc disorder with [...] hour prior to MRI (must have otr hazmat company driver) 2 Tablet 0 01/23/2023 Active [...] Lipid Taxonomy. Other chronic sinusitis 10/17/19 18 Ergonomics Engineer's cramp 03/28/2019 documented as of this encounter [...] were not included. CLINIC NOTES [facility] [address] [place] [address] Cuong iL : 1955 NEUROLOGY OUTPATIENT NOTE 01/23/2023 HISTORY: The patient is referred for consultation by Dr. Hough, who will be receiving a copy of this note. Patient comes today in follow-up dizziness. An asymptomatic small left hemisphere corticalinfarct seen on evaluation of the same. Zio bubble study are as follows. Type ID Date and Time Dictating Provider External EKG Review and Interp [id number] 08/17/2022 12:00 AM Mickey Robertson DO Signed [...] on the left hand. Encounter Date: 11/17/2022 [facility] Neurophysiology Laboratory Electromyography Report Name: Cuong iL Date of : 1955 (67 year old) [...] raw data or the scanned document in [employer]. Reference values are from the [facility] normative data guidelines that are attached at [...] raw data or the scanned document in [employer]. The study was done with a concentric [...] right Trochanteric bursitis of right hip 06/10/2020 Ergonomics Engineer's cramp Patient Active Problem List Diagnosis Code [...] performed by Antoinette Godinez MD at [facility] COLONOSCOPY, DIAGNOSTIC (RECTUM) 02/12/2020 2 adenomatous polyps in transverse colon, repeat 3 yrs / COLONOSCOPY FLEXIBLE PROXIMAL DIAGNOSTIC performed by Antoinette Godinez MD at 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 The [facility] MRI is relatively open. Given the [...] Date Type Specialty Care Team Description 01/23/2023 Laboratory [facility] Lab Scenery [address] [place] [address] Arrived 02/23/2023 Office Visit Family Medicine Armani Hough MD [address] [place] [address] [place] [address] 03/14/2023 NeuroDiagnostic Study Neurophysiology Reinaldo Hoover MD [address] [place] [address] Pending Results Name Type Priority Associated Diagnoses Date /Time CREATININE Lab Routine Peroneal palsy, right Weakness of right lower extremity 01/23/2023 10:05 AM EDT LYME DISEASE ANTIBODY SCREEN WITH REFLEX TO CONFIRMATION Lab Routine Peroneal palsy, right Weakness of right lower extremity 01/23/2023 10:05 AM EDT ERYTHROCYTE SEDIMENTATION RATE (ESR) Lab Routine Peroneal palsy, right Weakness of right lower extremity 01/23/2023 10:05 AM EDT SYSTEMIC LUPUS ERYTHEMATOSUS REFLEX PROFILE Lab Routine Peroneal palsy, right Weakness of right lower extremity 01/23/2023 10:05 AM EDT HEMOGLOBIN A1C Lab Routine Peroneal palsy, right Weakness of right lower extremity 01/23/2023 10:05 AM EDT METHYLMALONIC ACID, SERUM Lab Routine Peroneal palsy, right Weakness of right lower extremity 01/23/2023 10:05 AM EDT LYME DISEASE ANTIBODY SCREEN Lab Routine Peroneal palsy, right Weakness of right lower extremity 01/23/2023 10:05 AM EDT ANTINUCLEAR ANTIBODY (JACKY) SCREEN, GILBERTO Lab Routine Peroneal palsy, right Weakness of right lower extremity 01/23/2023 10:05 AM EDT Scheduled Orders Name Type Priority Associated Diagnoses Orde r Schedule MRI T SPINE WO CONTRAST Medical Imaging Routine Thoracic disc disorder with myelopathy Ordered: 01/23/2023 MRI L SPINE W WO CONTRAST Medical Imaging Routine Weakness of right lower extremity Severe low back pain Ordered: 01/23/2023 Scheduled Procedures Name Priority Associated [...] Lumbago documented in this encounter Care Teams Entertainment Production Professional Relationship Specialty Start Date End Date Armani Hough MD [address] [place] [address] [place] [address] PCP - General Family Medicine 09/01/22 documented as of this encounter
--- OUTSIDE RECORDS SUMMARY | 2023-02-20 21:37 | External Medical Summary ---
Author Name Unknown Address Unknown Organization K01:LABORATORY [facility] [place] - [address] [place] [address] Laboratory Report Ordering Provider Test Date Status JERZY GOMEZ 09/01/2022 08:20:07 Final Observation Date Value Abnormality Reference (Units ) Status Triglyceride 09/01/2022 08:20:07 50 <=174 ( mg/dL) Final Performing Location [facility] - [address] [place] [address]
--- OUTSIDE RECORDS SUMMARY | 2023-02-20 21:37 | External Medical Summary | Summary of Care ---
Author Name Unknown Organization [facility] Address [address] [place] [address] Phone [phone] Care Team Providers Care Corporate Wellness Coordinator Name Role Phone Armani Hough MD Primary Care Provider + [phone] Reason for Visit * Reason Comments EMG Encounter Details Date Type Department Care Team Description 11/17/2022 NeuroDiagnostic Study Neurophysiology [facility] [address] [place] [address] Kasi Mcdaniel, [address] [place] [address] Arrived Allergies No known active allergiesdocumented as of this encounter (statuses as of 11/17/2022) Medications Medication Sig Dispensed Refills Start Date [...] hour prior to MRI. Must have a piledriver carpenter 1 Tablet 0 06/24/2022 Active Additional Information [...] as of this encounter (statuses as of 11/17/2022) Active Problems Problem Noted Date Hx of [...] as of this encounter (statuses as of 11/17/2022) Resolved Problems Problem Noted Date Resolved Date [...] Taxonomy. Other chronic sinusitis 10/17/19 18 Water Hauler's cramp 03/28/2019 documented as of this encounter (statuses as of 11/17/2022) Immunizations Name Administration Dates Next Due COVID-19 [...] as of this encounter Progress Notes * Kasi Mcdaniel DO - 11/17/2022 8:[address] [facility] Neurophysiology Laboratory Electromyography Report Name: Cuong Li [...] raw data or the scanned document in [employer]. Reference values are from the [facility] normative data guidelines that [...] raw data or the scanned document in [employer]. The study was done with a concentric needle examination. Kasi Mcdaniel DO documented in this encounter Plan of Treatment Upcoming Encounters Date Type Specialty Care Team Description 01/23/2023 Office Visit Neurology Lynn Hoover MD [address] [place] [address] Scheduled Procedures Name Priority Associated Diagnoses Date/Ti [...] as of this encounter Visit Diagnoses Diagnosis Numbness and tingling in left hand- Primary Disturbance of skin sensation documented in this encounter Care Teams Corporate Wellness Coordinator Relationship Specialty Start Date End Date Armani Hough MD [address] [place] [address] [place] [address] PCP - General Family Medicine 09/01/22 documented as of this encounter
--- OUTSIDE RECORDS SUMMARY | 2023-02-20 21:37 | External Medical Summary ---
Author Name Unknown Address Unknown Organization K01:LABORATORY [facility] - [address] [place] [address] Laboratory Report Ordering Provider Test Date Status JERZY GOMEZ 09/01/2022 08:20:07 Final Observation Date Value Abnormality Reference (Units ) Status Magnesium 09/01/2022 08:20:07 1.7 1.5-2.6 (m g/dL) Final Performing Location [facility] - [address] [place] [address]
--- OUTSIDE RECORDS SUMMARY | 2023-02-20 21:37 | External Medical Summary | Summary of Care ---
Author Name Unknown Organization [facility] Address [address] [place] [address] Phone [phone] Care Team Providers Care Astronomy Department Chair Name Role Phone Armani Hough MD Primary Care Provider + [phone] Encounter Details Date Type Department Care Team Description 08/30/2022 Office Visit Orthopaedics [facility] [address] [place] [address] Gigi Harrell, [address] [place] [address] Greater trochanteric pain syndrome of both lower extremities* Allergies No known active allergiesdocumented as of this encounter (statuses as of 08/30/2022) Medications Medication Sig Dispensed Refills Start Date [...] hour prior to MRI. 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,Inverse psoriasis APPLY TO PINK PATCHES ON THE FACE TWICE DAILY NEEDED FOR FLARES OF PSORIASIS 15 g 3 07/18/2022 Active Atorvastatin Calcium 40 MG Oral Tablet (Lipitor)Indication s:Hyperlipidemia LDL goal <130 TAKE 1 TABLET BY MOUTH EVERYDAY AT BEDTIME 90 Tablet 0 2022 Active Aspirin 81 MG Oral Capsule One day 0 08/05/2022 Active Hospital, Clinic, or Other Facility Administered Medication Ordered Dose Route Frequency Start Date End Date Status lidocaine 1% 1 mL - triamcinolone acetonide 40 mg/mL 1 mL inj 2 mLIndications:Greater trochanteric pain syndrome of both lower extremities 2 mL IJ ONCE 08/30/2022 08/30/2022 Active lidocaine 1% 1 mL - triamcinolone acetonide 40 mg/mL 1 mL inj 2 mLIndications:Greater trochanteric pain syndrome of both lower extremities 2 mL IJ ONCE 08/30/2022 08/30/2022 Active documented as of this encounter (statuses as of 08/30/2022) Active Problems Problem Noted Date Hx of [...] as of this encounter (statuses as of 08/30/2022) Resolved Problems Problem Noted Date Resolved Date [...] Lipid Taxonomy. Other chronic sinusitis 10/17/19 18 Dip Brazier's cramp 03/28/2019 documented as of this encounter (statuses as of 08/30/2022) Immunizations Name Administration Dates Next Due COVID-19 [...] this encounter Progress Notes * Gigi Harrell, DO - 08/30/2022 10:30 AM EDT Cuong Li [id number] INJECTION NOTE Cuong Li is a 67 year old male who presents to [facility] for Bilateral trochanteric bursa. Last injected 06/30/20 Physical Exam General: in no acute distress Mood and Affect: normal Gait and Station: normal PE: TTP at troch moderate b/l No pain with log roll/ [place] b/l Radiology: we elected no imaging at this point Assessment and Plan: f/u PRN 1) Greater trochanteric pain syndrome of both lower extremities (Primary) - POINT OF CARE US MAJOR JOINT INJECTION, ORTHO - lidocaine 1% 1 mL - triamcinolone acetonide 40 mg/mL 1 mL inj 2 mL - lidocaine 1% 1 mL - triamcinolone acetonide 40 mg/mL 1 mL inj 2 mL Gigi Harrell DO Primary Care Sports Medicine [facility] [place] [address] Procedure note (trochanteric bursa), bilateral : Time out: Prior to injection, a time out was called to confirm the administration of appropriate medicine, patient name, procedure and confirm to the best of our ability and knowledge the presence of any necessary risks and benefits. Patient verbalizes understanding. Ultrasound utilized to guide injection Ultrasound required due to high risk for complications without ultrasound guideance (risk for neurovascular damage). Sterile techinique applied. Skin sterilized with alcohol swab. Lateral aproach to inject trochanteric bursa using 3.5 inch, 22 gauge needle. Injected with lidocaine 1% 1 mL - triamcinolone acetonide 40 mg/mL 1 mL inj 2 mL Patient tolerated procedure with no significant bleeding or adverse reaction. Patient instructed to call or return to clinic for fever or warmth and redness at injection site for potential infection. Patient also advised as to potential for steroid flare reaction including increased pain and redness at injection site which should be treated with ice and resolve within 24 hours. Gigi Harrell DO documented in this encounter Nursing Notes * Sarahi Finnegan LPN - 08/30/2022 10:28 AM EDT Pt presents for bilateral greater troch injections. documented in this encounter Plan of Treatment Upcoming Encounters Date Type Specialty Care Team Description 08/30/2022 Imaging Radiology Arrived 09/01/2022 Cardiac Studies Cardiac Studies 09/15/2022 NeuroDiagnostic Study Neurophysiology Kasi Mcdaniel DO [address] [facility] [place] [address] 01/23/2023 Office Visit Neurology Lynn Hoover MD [address] [facility] [place] [address] Scheduled Procedures Name Priority Associated Diagnoses Date/Ti me COLONOSCOPY FLEXIBLE PROXIMAL DIAGNOSTIC Recall History of colon polyps Health Maintenance Due Date Last Done Comments COVID-19 Vaccine (3 - Moderna risk series) 09/07/2020 08/10/2020, 07/13/2020 Depression Screening, Annual for Pts 12 and Over 12/08/2020 12/09/2019 DTaP,Tdap,and Td Vaccines (2 - Td or Tdap) 12/12/2021 12/13/2011, 07/06/2006 COLONOSCOPY-EVERY 3 YRS AGES 18-100 02/11/2023 02/12/2020, 02/12/2020, 06/03/2016, Additional history exists GFR - Renal Function 07/04/2023 07/04/2022, 01/23/2022, 01/21/2022, Additional history exists Albumin/Creatinine Ratio 06/28/2024 06/28/2021 Diabetes Screening 01/23/2025 01/23/2022, 0 01/21/2022, 12/09/2020, Additional history exists Lipid Panel 06/28/2026 06/28/2021, 09/05, 01/06/2020, Additional history exists ABDOMINAL AORTIC ANEURYSM (AAA) SCREENING Completed 05/30/2012, 03/14/2000 Pneumococcal Vaccine: 65+ Years Completed 02/27/2020, 03/01/2019, 09/20/2018, Additional history exists Zoster Vaccines Completed 12/16/2020, 09/05, 03/30/2020 Influenza Vaccine (FLU shot) Completed , 02/12/2021, 02/27/2020, Additional history exists GARDASIL-HPV IMMUNIZATION SERIES Aged [...] CARE US MAJOR JOINT INJECTION, ORTHO Routine 08/30/2022 9:44 AM EDT Greater trochanteric pain syndrome of both lower extremities documented in this encounter Results * POINT OF CARE US MAJOR JOINT INJECTION, ORTHO (08/30/2022 9:44 AM EDT) Anatomical Region Laterality Modality Musculoskeletal Radiographic Ebony ging 08/30/2022 9:44 AM EDT Narrative 08/30/2022 10:47 AM EDT [facility] - Ultrasound Program Exam Date: 08/30/2022 Exam Type: Ortho Sewer: Panchito Meyers Attending: Gigi Harrell Worksheet: Ortho Injection Exam Information: Impression: Procedure note (trochanteric bursa), bilateral : ? Time out: Prior to injection, a time out was called to confirm the administration of appropriate medicine, patient name, procedure and confirm to the best of our ability and knowledge the presence of any necessary risks and benefits. Patient verbalizes understanding. ? Ultrasound utilized to guide injection Ultrasound required due to high risk for complications without ultrasound guideance (risk for neurovascular damage). ? Sterile techinique applied. Skin sterilized with alcohol swab. Lateral aproach to inject trochanteric bursa using 3.5 inch, 22 gauge needle. Injected with lidocaine 1% 1 mL - triamcinolone acetonide 40 mg/mL 1 mL inj 2 mL Patient tolerated procedure with no significant bleeding or adverse reaction. ? Patient instructed to call or return to clinic for fever or warmth and redness at injection site for potential infection. Patient also advised as to potential for steroid flare reaction including increased pain and redness at injection site which should be treated with ice and resolve within 24 hours. ? Gigi Harrell DO Physician Signature: I reviewed the images and approve the documentation above.: Signed by Gigi Harrell on Tuesday, August 30, 2022 at 10:46:44 AM Procedure Note Gigi Harrell DO - 08/30/2022 [facility] - Ultrasound Program Exam Date: 08/30/2022 Exam Type: Ortho Sewer: Panchito Meyers Attending: Gigi Harrell Worksheet: Ortho Injection Exam Information: Impression: Procedure note (trochanteric bursa), bilateral : ? Time out: Prior to injection, a time out was called to confirm the administration ofappropriate medicine, patient name, procedure and confirm to the best ofour ability and knowledge the presence of any necessary risks andbenefits. Patient verbalizes understanding. ? Ultrasound utilized to guide injection Ultrasound required due to high risk for complications without ultrasoundguideance (risk for neurovascular damage). ? Sterile techinique applied. Skin sterilized with alcohol swab. Lateralaproach to inject trochanteric bursa using 3.5 inch, 22 gauge needle.Injected with lidocaine 1% 1 mL - triamcinolone acetonide 40 mg/mL 1mL inj 2 mL Patient tolerated procedure with no significant bleeding oradverse reaction. ? Patient instructed to call or return to clinic for fever or warmth andredness at injection site for potential infection. Patient also advisedas to potential for steroid flare reaction including increased pain andredness at injection site which should be treated with ice and resolvewithin 24 hours. ? Gigi Harrell DO Physician Signature: I reviewed the images and approve the documentation above.: Signed byGigi Harrell on Tuesday, August 30, 2022 at 10:46:44 AM Gigi Harrell DO RAD ULTRASOUND documented in this encounter Visit Diagnoses Diagnosis Greater trochanteric pain syndrome of both lower extremities- Primary documented in this encounter Care Teams Astronomy Department Chair Relationship Specialty Start Date End Date Armani Hough MD PCP - General Family Medicine 09/20/16 documented as of this encounter
--- OUTSIDE RECORDS SUMMARY | 2023-02-20 21:37 | External Medical Summary ---
Author Name Unknown Address Unknown Organization K01:[place] [facility] [place] [address] within [facility] [address] Laboratory Report Ordering Provider Test Date Status EUFEMIA CHRISTIANSON 11/18/2022 10:51:30 Final Observation Date Value Abnormality Reference (Units ) Status SYNC LEUKOCYTES IN BLOOD BY AUTOMATED COUNT 11/18/2022 10:51:30 4.87 4.00-10.80 (K/uL) Final Segs 11/18/2022 10:51:30 59.9 40.0-75.0 (%) Final Lymphs % 11/18/2022 10:51:30 22.0 18.0-42.0 (%) Final Monos 11/18/2022 10:51:30 14.2 Above high normal 1.0-11.0 (%) Final Eosinophils 11/18/2022 10:51:30 2.5 0.0-6.0 (%) Final Basos 11/18/2022 10:51:30 0.6 0.0-2.0 (%) Final Immature Granulocyte, Percent 11/18/2022 10:51:30 0.8 0.0-2.0 (%) Final Absolute Segs 11/18/2022 10:51:30 2.92 1.80-7.70 (K/uL) Final Lymphs, absolute 11/18/2022 10:51:30 1.07 1.00-4.80 (K/ul) Final Monos, Abs 11/18/2022 10:51:30 0.69 0.00-1.10 (K/uL) Final Eos, Abs 11/18/2022 10:51:30 0.12 0.00-0.70 (K/uL) Final Basos, Abs 11/18/2022 10:51:30 0.03 0.00-0.20 (K/uL) Final Immature Granulocytes, Number 11/18/2022 10:51:30 0.04 0.00-0.20 (K/uL) Final Performing Location [place] [place] [facility] [place] [address]
--- OUTSIDE RECORDS SUMMARY | 2023-02-20 21:37 | External Medical Summary ---
Author Name Unknown Address Unknown Organization K01:[facility] [place] [address] [place] [address] Laboratory Report Ordering Provider Test Date Status JERZY GOMEZ 09/01/2022 08:20:07 Final Observation Date Value Abnormality Reference (Units ) Status Vitamin B12 09/01/2022 08:20:07 [phone] (pg/mL) Final Performing Location [facility] [place] [address] [place] [address]
--- OUTSIDE RECORDS SUMMARY | 2023-02-20 21:37 | External Medical Summary ---
Author Name Unknown Address Unknown Organization K01:[facility] [place] - [address] [place] [address] Laboratory Report Ordering Provider Test Date Status SAMMYAIARACELY 11/18/2022 10:51:30 Final Observation Date Value Abnormality Reference (Units ) Status WBC, Total 11/18/2022 10:51:30 4.87 4.00-10.8 0 (K/uL) Final RBC 11/18/2022 10:51:30 3.64 4.50-5.25 (M/uL) Final Hemoglobin 11/18/2022 10:51:30 12.6 Below low normal 14 .0-16.8 (g/dL) Final Performing Location LABORATORY C - [address] [place] [id number]
--- OUTSIDE RECORDS SUMMARY | 2023-02-20 21:37 | External Medical Summary | Summary of Care ---
Author Name Unknown Organization [facility] Address [address] [place] [address] Phone [phone] Care Team Providers Care Head Loader Name Role Phone Armani Hough MD Primary Care Provider + [phone] Encounter Details Date Type Department Care Team Description 08/30/2022 Office Visit Orthopaedics [facility] [address] [place] [address] Gigi Harrell, [address] [place] [address] Greater trochanteric pain syndrome of both lower [...] hour prior to MRI. Must have a city driver 1 Tablet 0 06/24/2022 Active Additional [...] extremities 2 mL IJ ONCE 08/30/2022 08/30/2022 Ended lidocaine 1% 1 mL - triamcinolone acetonide 40 mg/mL 1 mL inj 2 mLIndications:Greater trochanteric pain syndrome of both lower extremities 2 mL IJ ONCE 08/30/2022 08/30/2022 Ended documented as of this encounter (statuses [...] Lipid Taxonomy. Other chronic sinusitis 10/17/19 18 Youth Advocate's cramp 03/28/2019 documented as of this encounter [...] - 08/30/2022 10:30 AM EDT Cuong Li [id number] INJECTION NOTE Cuong Li is a 67 year old male who presents to [facility] for Bilateral trochanteric bursa. Last [...] Gigi Harrell DO Primary Care Sports Medicine [facility] [place] [address] Procedure note (trochanteric bursa), bilateral [...] Encounters Date Type Specialty Care Team Description 09/01/2022 Cardiac Studies Cardiac Studies 09/15/2022 NeuroDiagnostic Study Neurophysiology Kasi [facility]cdaniel DO [address] [facility] [address] [facility]/23/[facility]23 Office Visit Neurology Lynn Hoover MD [address] [place] [address] [place] [address] Scheduled Procedures Name Priority Associated Diagnoses Date/Ti [...] AM EDT Narrative 08/30/2022 10:47 AM EDT [facility] - Ultrasound Program Exam Date: 08/30/2022 Exam Type: Ortho Data Warehousing Engineer: Panchito Meyers Attending: Gigi Harrell Worksheet: Ortho [...] Procedure Note Gigi Harrell DO - 08/30/2022 [facility] [facility] - Ultrasound Program Exam Date: 08/30/2022 Exam Type: Ortho Data Warehousing Engineer: Panchito Meyers Attending: Gigi Harrell Worksheet: Ortho [...] lower extremities- Primary documented in this encounter Administered Medications Inactive Administered Medications - up to 3 most recent administrations Medication Order MAR Action Action Date Dose Rate Site lidocaine 1% 1 mL - triamcinolone acetonide 40 mg/mL 1 mL inj 2 mL 2 mL, Injection, ONCE, On Mon08/30/22 at 1115, For 1 dose, Lidocaine 1% 1mL Triamcinolone Acetonide 40 mg/mL 1 mL (Final concentration = 20 mg/mL) REFRIGERATE and SHAKE WELL Given 08/30/2022 12:37 PM EDT 2 mL Hip Right lidocaine 1% 1 mL - triamcinolone acetonide 40 mg/mL 1 mL inj 2 mL 2 mL, Injection, ONCE, On Mon08/30/22 at 1115, For 1 dose, Lidocaine 1% 1mL Triamcinolone Acetonide 40 mg/mL 1 mL (Final concentration = 20 mg/mL) REFRIGERATE and SHAKE WELL Given 08/30/2022 12:36 PM EDT 2 mL Hip Left documented in this encounter Care Teams Head Loader Relationship Specialty Start Date End Date Armani Hough MD PCP - General Family Medicine 09/20/16 documented as of this encounter
--- OUTSIDE RECORDS SUMMARY | 2023-02-20 21:37 | External Medical Summary | Summary of Care ---
Author Name Unknown Organization [facility] Address [address] [place] [address] Phone [phone] Care Team Providers Care Vp Strategic Partnerships Name Role Phone Armani Hough MD Primary Care Provider + [phone] Reason for Referral * Precert (Within 10 days (routine)) - Pending Review Specialty Diagnoses / Procedures Referred By Contac t Referred To Contact Cardiac Studies Diagnoses Embolic stroke involving right posterior cerebral artery (HCC) Procedures ECHO, TTE, LIMITED Lynn Hoover MD [address] [place] [address] Referral ID Status Reason Start Date Expiration Date Visits Requested Visits Authorized [id number] Pending Review Precert 10/10/2022 999 999 Reason for Visit * Reason Onset Date Comments Order Request 09/08/2022 Encounter Details Date Type Department Care Team Description 09/08/2022 Telephone Neurology [facility] [address] [place] [address] Lynn Hoover MD [address] [facility] [place] [address] Order Request Allergies No known active allergiesdocumented as of this encounter (statuses as of 09/09/2022) Medications Medication Sig Dispensed Refills Start Date [...] hour prior to MRI. Must have a tier truck driver 1 Tablet 0 06/24/2022 Active [...] Oral Capsule One day 0 08/05/2022 Active documented as of this encounter (statuses as of 09/09/2022) Active Problems Problem Noted Date Hx of [...] as of this encounter (statuses as of 09/09/2022) Resolved Problems Problem Noted Date Resolved Date [...] Lipid Taxonomy. Other chronic sinusitis 10/17/19 18 Titrator's cramp 03/28/2019 documented as of this encounter (statuses as of 09/09/2022) Immunizations Name Administration Dates Next Due COVID-19 [...] encounter Miscellaneous Notes * Telephone Encounter - LAURENT Mendoza - 09/09/2022 8:21 AM EDT New order pended * Telephone Encounter - RUTHY Melara - 09/08/2022 5:00 PM EDT Good evening, Pt's echo order expires on October 02. There are no openings for an echo prior to that date in [facility]. Please create new order with an expiration date further into the future. Thanks documented in this encounter Plan of Treatment Upcoming Encounters Date Type Specialty Care Team Description 09/15/2022 NeuroDiagnostic Study Neurophysiology Kasi Mcdaniel DO [address] [place] [address] 01/23/2023 Office Visit Neurology Lynn Hoover MD [address] [place], [place] [address] Scheduled Orders Name Type Priority Associated Diagnoses Orde r Schedule ECHO, TTE, LIMITED Echocardiology Routine Embolic stroke involving right posterior cerebral artery (HCC) Expected: 10/10/2022, Expires: 03/12/2023 Scheduled Procedures Name Priority Associated Diagnoses Date/Ti [...] 01/21/2022, 12/09/2020, Additional history exists Lipid Panel 09/02/2027 09/01/2022, 06/09, 09/14/2020, Additional history exists ABDOMINAL AORTIC ANEURYSM (AAA) [...] as of this encounter Visit Diagnoses Diagnosis Embolic stroke involving right posterior cerebral artery (HCC)- Primary Cerebral embolism with cerebral infarction documented in this encounter Care Teams Vp Strategic Partnerships Relationship Specialty Start Date End Date Armani Hough MD [address] [place] [address] [place] [address] PCP - General Family Medicine 09/01/22 documented as of this encounter
--- OUTSIDE RECORDS SUMMARY | 2023-02-20 21:37 | External Medical Summary | Summary of Care ---
Author Name Unknown Organization [facility] Address [address] [place] [address] Phone [phone] Care Team Providers Care Lime Kiln Tender Name Role Phone Armani Hough MD Primary Care Provider + [phone] Reason for Visit * Reason Onset Date Comments Medication Refill 10/30/2022 Encounter Details Date Type Department Care Team Description 10/30/2022 Refill Family Medicine [address] [address] Armani Hough MD [address] [place] [address] [place] [address] Hyperlipidemia LDL goal <130 Allergies No known active allergiesdocumented as of this encounter (statuses as of 10/31/2022) Medications Medication Sig Dispensed Refills Start Date [...] hour prior to MRI. Must have a passenger coach driver 1 Tablet 0 06/24/2022 Active Additional [...] as of this encounter (statuses as of 10/31/2022) Active Problems Problem Noted Date Hx of [...] as of this encounter (statuses as of 10/31/2022) Resolved Problems Problem Noted Date Resolved Date [...] Lipid Taxonomy. Other chronic sinusitis 10/17/19 18 Athletic Equipment Manager's cramp 03/28/2019 documented as of this encounter (statuses as of 10/31/2022) Immunizations Name Administration Dates Next Due COVID-19 [...] encounter Miscellaneous Notes * Telephone Encounter - Real Arteaga RPh - 10/31/2022 11:26 AM EDT Refused Prescriptions: Disp Refills Atorvastatin Calcium 40 MG Oral Tablet (Li*90 Tab*0 Refused By:REAL ARTEAGA for Refusal: Other (comment below)Reason for Refusal Comment: Sent MyG--- documented in this encounter Plan of Treatment Upcoming Encounters Date Type Specialty Care Team Description 11/17/2022 NeuroDiagnostic Study Neurophysiology Kasi Mcdaniel, DO [address] [facility] 11/17/2022 Cardiac Studies Cardiac Studies 01/23/2023 Office Visit Neurology Lynn Hoover MD [address] [place] [address] Scheduled Procedures Name Priority Associated Diagnoses Date/Ti [...] 09/02/2027 09/01/2022, 06/09, 09/14/2020, Additional history exists Pneumococcal Vaccine: 65+ Years Completed 02/27/2020, 03/01/2019, 09/20/2018, Additional history exists Zoster Vaccines Completed 12/16/2020, 09/05, 03/30/2020 Influenza Vaccine (FLU shot) Completed , 02/12/2021, 02/27/2020, Additional history exists ABDOMINAL AORTIC ANEURYSM (AAA) SCREENING Completed 01/22/2022, [...] hyperlipidemia documented in this encounter Care Teams Lime Kiln Tender Relationship Specialty Start Date End Date Armani Hough MD [address] [place] [address] [place] [address] PCP - General Family Medicine 09/01/22 documented as of this encounter
--- OUTSIDE RECORDS SUMMARY | 2023-02-20 21:37 | External Medical Summary | Summary of Care ---
Author Name Unknown Organization [facility] Address [address] [place] [address] Phone [phone] Care Team Providers Care Electronic Engineering Technician Name Role Phone Armani Hough MD Primary Care Provider + [phone] Reason for Visit * Reason Comments Outpatient Testing Encounter Details Date Type Department Care Team Description 09/01/2022 Laboratory Laboratory [address] [place] [address] [place] [address] Encounter for long-term (current) use of medications Allergies No known active allergiesdocumented as of this encounter (statuses as of 09/01/2022) Medications Medication Sig Dispensed Refills Start Date [...] hour prior to MRI. Must have a furniture delivery driver 1 Tablet 0 06/24/2022 Active Additional [...] as of this encounter (statuses as of 09/01/2022) Active Problems Problem Noted Date Hx of [...] as of this encounter (statuses as of 09/01/2022) Resolved Problems Problem Noted Date Resolved Date [...] Lipid Taxonomy. Other chronic sinusitis 10/17/19 18 Land Inspector's cramp 03/28/2019 documented as of this encounter (statuses as of 09/01/2022) Immunizations Name Administration Dates Next Due COVID-19 [...] NeuroDiagnostic Study Neurophysiology Kasi Mcdaniel DO [address] [facility] [place] [address] 01/23/2023 Office Visit Neurology Lynn Hoover MD [address] [facility] [place] [address] Pending Results Name Type Priority Associated Diagnoses Date /Time LIPID PANEL WITH DIRECT LDL IF TG IS HIGH Lab Routine Encounter for long-term (current) use of medications 09/01/2022 8:20 AM EDT MAGNESIUM Lab Routine Encounter for long-term (current) use of medications 09/01/2022 8:20 AM EDT VITAMIN B12 Lab Routine Encounter for long-term (current) use of medications 09/01/2022 8:20 AM EDT Scheduled Procedures Name Priority Associated [...] as of this encounter Visit Diagnoses Diagnosis Encounter for long-term (current) use of medications Encounter for long-term (current) use of other medications documented in this encounter Care Teams Electronic Engineering Technician Relationship Specialty Start Date End Date Armani Hough MD [address] [place] [address] [place] [address] PCP - General Family Medicine 09/01/22 documented as of this encounter
--- OUTSIDE RECORDS SUMMARY | 2023-02-20 21:37 | External Medical Summary | Summary of Care ---
Author Name Unknown Organization [facility] Address [address] [place] [address] Phone [phone] Care Team Providers Care Washing Machine Mechanic Name Role Phone Armani Hough MD Primary Care Provider + [phone] Reason for Referral * Precert (Within 10 days (routine)) - Pending Review Specialty Diagnoses / Procedures Referred By Contac t Referred To Contact Cardiac Studies Diagnoses Embolic stroke involving right posterior cerebral artery (HCC) Procedures ECHO, TTE, LIMITED Lynn Hoover MD [address] [facility] [place] [address] Referral ID Status Reason Start Date Expiration Date Visits Requested Visits Authorized [id number] Pending Review Precert 09/02/[phone] Reason for Visit * Reason Onset Date Comments Appointment 09/02/2022 Encounter Details Date Type Department Care Team Description 09/02/2022 Telephone Neurology [place] [facility] [place] [address] Lynn Hoover MD [address] [facility] [place] [address] Appointment Allergies No known active allergiesdocumented as of this encounter (statuses as of 09/16/2022) Medications Medication Sig Dispensed Refills Start Date [...] hour prior to MRI. Must have a new car driver 1 Tablet 0 06/24/2022 Active Additional [...] as of this encounter (statuses as of 09/16/2022) Active Problems Problem Noted Date Hx of [...] as of this encounter (statuses as of 09/16/2022) Resolved Problems Problem Noted Date Resolved Date [...] Lipid Taxonomy. Other chronic sinusitis 10/17/19 18 Hogshead Dumper's cramp 03/28/2019 documented as of this encounter (statuses as of 09/16/2022) Immunizations Name Administration Dates Next Due COVID-19 [...] * Telephone Encounter - RUTHY Morgan - 09/16/2022 9:49 AM EDT scheduled * Telephone Encounter - Lynn Hoover MD - 09/02/2022 2:05 PM EDT Tell patient that because there was not an RN at the clinic they could not complete the bubble study component to his echo and that a limited study needs to be scheduled at [facility]. Please schedule documented in this encounter Plan of Treatment Upcoming Encounters Date Type Specialty Care Team Description 11/17/2022 Cardiac Studies Cardiac Studies 01/23/2023 Office Visit Neurology Lynn Hoover MD [address] [place] [address] Scheduled Orders Name Type Priority Associated Diagnoses Orde r Schedule ECHO, TTE, LIMITED Echocardiology Routine Embolic stroke involving right posterior cerebral artery (HCC) Expected: 09/02/2022, Expires: 10/02/2022 Scheduled Procedures Name Priority Associated Diagnoses Date/Ti [...] Additional history exists Lipid Panel 09/02/2027 09/01/2022, 0205/2021, 09/14/2020, Additional history exists ABDOMINAL AORTIC ANEURYSM [...] infarction documented in this encounter Care Teams Washing Machine Mechanic Relationship Specialty Start Date End Date Armani Hough MD [address] [place] [address] [place] [address] PCP - General Family Medicine 09/01/22 documented as of this encounter
--- OUTSIDE RECORDS SUMMARY | 2023-02-20 21:38 | External Medical Summary | Summary of Care ---
Author Name Unknown Organization [facility] Address [address] [place] [address] Phone [phone] Care Team Providers Care Manager Managing Name Role Phone Armani Hough MD Primary Care Provider + [phone] Reason for Visit * Reason Onset Date Comments Test Results 07/08/2022 Encounter Details Date Type Department Care Team Description 07/08/2022 Telephone Family Medicine [address] [address] Armani Hough MD [address] [place], [place] [address] [address] Test Results Allergies No known active allergiesdocumented as of this encounter (statuses as of 07/11/2022) Medications Medication Sig Dispensed Refills Start Date End Date Status LISINOPRIL 40 MG PO TABSIndications:in am Take by mouth. Indications: in am 90 Tab 3 12/13/2011 Active VIAGRA 100 MG PO TABSIndications:Imp otence of organic origin one as needed 6 Tab 5 04/26/2013 Active BuPROPion HCl ER, SR, 200 MG TB12 Take 200 mg by mouth 2 times a day. 1 twice daily 0 05/26/2016 Active traZODone (DESYREL) 100 MG TabletIndications:P ersistent insomnia TAKE 1/2 TABLET DAILY AT BEDTIME 90 Tab 1 04/17/2017 Active Additional Information Patient taking differently: One at bedtime, Reported on 01/21/2022 Fluocinonide 0.05 % External CreamIndications:Al lergic contact [...] Tablet (Buspar) Take 15 Tablets by mouth 3 times a day. 0 08/07/2020 Active Metoprolol Tartrate 25 MG Oral Tablet (Lopressor)Indicati ons:Primary hypertension one pill twice a day 180 Tablet 1 06/28/2021 Active Omeprazole 20 MG Oral Capsule Delayed Release (PriLOSEC)Indicatio ns:Gastroesophageal reflux disease with esophagitis without hemorrhage Take by mouth 1 Capsule in the morning. 90 Capsule 1 06/28/2021 Active Desonide 0.05 % External CreamIndications:Ot her psoriasis,Inverse psoriasis Apply to pink patches on the face twice daily as needed for flares of psoriasis 60 g 1 11/15/2021 Active Hydrocortisone 2.5 % External OintmentIndications :Dermatitis Apply to rash on the face twice daily x 3-4 days, then 2-3 x's per week. 15 g 1 11/16/2021 Active Atorvastatin Calcium 40 MG Oral Tablet (Lipitor)Indication s:Hyperlipidemia LDL goal <130 TAKE 1 TABLET BY MOUTH EVERYDAY AT BEDTIME 90 Tablet 1 12/17/2021 Active Tacrolimus 0.1 % External Ointment (Protopic)Indicatio ns:Other psoriasis,Inverse psoriasis APPLY TO PSORIASIS ON THE GENITALS TWICE DAILY NEEDED FOR FLARES. 60 g 2 06/21/2022 Active diazePAM 5 MG Oral Tablet (Valium) Take one tab one hour prior to MRI. Must have a regional company hazmat tanker driver 1 Tablet 0 06/24/2022 Active documented as of this encounter (statuses as of 07/11/2022) Active Problems Problem Noted Date Hx of [...] as of this encounter (statuses as of 07/11/2022) Resolved Problems Problem Noted Date Resolved Date [...] Lipid Taxonomy. Other chronic sinusitis 10/17/19 18 Canvass Manager's cramp 03/28/2019 documented as of this encounter (statuses as of 07/11/2022) Immunizations Name Administration Dates Next Due COVID-19 [...] encounter Miscellaneous Notes * Telephone Encounter - Marina Partida LPN - 07/11/2022 9:01 AM EST Faxed to [facility]. * Telephone Encounter - RUTHY Lopez - 07/08/2022 2:38 PM EST Zeny from [facility] in [place] is calling requesting patient's lab Bun and Creatinine to be sent via fax as soon as possible. Patient will be having MRI on Monday. Please advise. documented in this encounter Plan of Treatment Upcoming Encounters Date Type Specialty Care Team Description 01/23/2023 Office Visit Neurology Lynn Hoover MD [address] [place] [address], [place] [address] Scheduled Procedures Name Priority Associated Diagnoses Date/Ti [...] 06/28/2026 06/28/2021, 09/05, 01/06/2020, Additional history exists Pneumococcal Vaccine: 65+ Years [...] filedocumented as of this encounter Care Teams Manager Managing Relationship Specialty Start Date End Date Armani Hough MD PCP - General Family Medicine 09/20/16 documented as of this encounter
--- OUTSIDE RECORDS SUMMARY | 2023-02-20 21:38 | External Medical Summary | Summary of Care ---
Author Name Unknown Organization [facility] Address [address] [place] [address] Phone [phone] Care Team Providers Care Cotton Tier Name Role Phone Armani Hough MD Primary Care Provider + [phone] Reason for Visit * Reason Comments eRx-Medication Refill Encounter Details Date Type Department Care Team Description 07/15/2022 [address]ill [address] [place] [address] Delilah Lynn PA-C [address] [place] [address] [place] [address] Other psoriasis; Inverse psoriasis Allergies No known active allergiesdocumented as of this encounter (statuses as of 07/18/2022) Medications Medication Sig Dispensed Refills Start Date [...] Reported on 01/21/2022 Fluocinonide 0.05 % External CreamIndications: Allergic contact [...] 12/17/2021 Active Tacrolimus 0.1 % External Ointment (Protopic)Indicat ions:Other psoriasis,Inverse psoriasis APPLY TO PSORIASIS ON THE GENITALS TWICE DAILY NEEDED FOR FLARES. 60 g 2 06/21/2022 Active diazePAM 5 MG Oral Tablet (Valium) Take one tab one hour prior to MRI. Must have a taxicab driver 1 Tablet 0 06/24/2022 Active Desonide 0.05 % External CreamIndications: Other psoriasis,Inverse psoriasis APPLY TO PINK PATCHES ON THE FACE TWICE DAILY NEEDED FOR FLARES OF PSORIASIS 15 g 3 07/18/2022 Active Desonide 0.05 % External CreamIndications: Other psoriasis,Inverse psoriasis Apply to pink patches on the face twice daily as needed for flares of psoriasis 60 g 1 11/15/2021 07/19/19 23 Discontinued documented as of this encounter (statuses as of 07/18/2022) Active Problems Problem Noted Date Hx of [...] as of this encounter (statuses as of 07/18/2022) Resolved Problems Problem Noted Date Resolved Date [...] Lipid Taxonomy. Other chronic sinusitis 10/17/19 18 Property Administrator's cramp 03/28/2019 documented as of this encounter (statuses as of 07/18/2022) Immunizations Name Administration Dates Next Due COVID-19 [...] encounter Miscellaneous Notes * Telephone Encounter - Kerrie Orlando PA-C - 07/18/2022 5:35 PM EDT Signed Prescriptions: Disp Refills Desonide 0.05 % External Cream 15 g 3 Sig: APPLY TO PINK PATCHES ON THE FACE TWICE DAILY NEEDED FOR FLARES OF PSORIASIS Authorizing Provider: KERRIE ORLANDO * Telephone Encounter - Annalee Rangel LPN - 07/18/2022 6:23 AM EDTPending Prescriptions: Disp Refills Desonide 0.05 % External Cream [Pharmacy M*15 g 3 Sig: Apply to pink patches on the face twice daily as needed for flares of psoriasis * Telephone Encounter - Annalee Rangel LPN - 07/18/2022 6:21 AM EDT Pending Prescriptions: Disp Refills Desonide 0.05 % External Cream [Pharmacy *15 g 3 Sig: APPLY TO PINK PATCHES ON THE FACE TWICE DAILY NEEDED FOR FLARES OF PSORIASIS 09/27/2021 (in office), Visit date not found (telemedicine) Visit date not found If no future appointments scheduled, and last appointment is greater than a year ago, please schedule patient for a follow-up appointment Last date the medication was ordered: 11/2021 Patient Phone Numbers [employer] [phone] Labs: Lab Results Component Value Date/Time CREAT 0.9 07/04/2022 09:37 AM CREAT 0.77 (A) 01/23/2022 12:00 AM CREAT 1.1 05/20/2015 10:03 AM POTASSIUM 3.9 01/23/2022 12:00 AM POTASSIUM 4.4 05/20/2015 10:03 AM TSH 1.87 01/21/2022 09:28 AM TSH 1.90 07/14/2006 09:11 AM LDLCALC 101 06/28/2021 09:08 AM LDLCALC 117 (A) 09/14/2020 12:00 AM LDLCALC 114 12/13/2011 08:15 AM LDLDIRECT NOT APPLICABLE 12/13/2011 08:15 AM LDLCHOL 106 (A) 09/10/2013 12:00 AM ALT 22 12/09/2020 12:42 PM ALT 33 09/08/2016 12:00 AM ALT 22 05/20/2015 10:03 AM HGBA1C 5.4 09/08/2016 12:00 AM documented in this encounter Plan of Treatment Upcoming Encounters Date Type Specialty Care Team Description 01/23/2023 Office Visit Neurology Lynn Hoover MD [address] [place] [address] Scheduled Procedures Name Priority Associated Diagnoses Date/Ti [...] as of this encounter Visit Diagnoses Diagnosis Other psoriasis Inverse psoriasis Other psoriasis documented in this encounter Care Teams Cotton Tier Relationship Specialty Start Date End Date Armani Hough MD PCP - General Family Medicine 09/20/16 documented as of this encounter
--- OUTSIDE RECORDS SUMMARY | 2023-02-20 21:38 | External Medical Summary | Summary of Care ---
Author Name Unknown Organization [facility] Address [address] [place] [address] Phone [phone] Care Team Providers Care Asl Interpreter Name Role Phone Armani Hough MD Primary Care Provider + [phone] Reason for Visit * Reason Comments Outpatient Testing Encounter Details Date Type Department Care Team Description 08/17/2022 Nurse Only Ancillary [address] [place] [address] [place], Nurse [address] [place] [address] Outpatient Testing Allergies No known active allergiesdocumented as of this encounter (statuses as of 08/17/2022) Medications Medication Sig Dispensed Refills Start Date [...] hour prior to MRI. Must have a medical delivery driver 1 Tablet 0 06/24/2022 Active [...] as of this encounter (statuses as of 08/17/2022) Active Problems Problem Noted Date Hx of [...] as of this encounter (statuses as of 08/17/2022) Resolved Problems Problem Noted Date Resolved Date [...] Lipid Taxonomy. Other chronic sinusitis 10/17/19 18 Animal Ride Manager's cramp 03/28/2019 documented as of this encounter (statuses as of 08/17/2022) Immunizations Name Administration Dates Next Due COVID-19 [...] Yes 05/26/2015 documented as of this encounter Nursing Notes * Marina Partida LPN - 08/17/2022 5:37 PM EDT Zio patch applied in clinic, as per provider orders. documented in this encounter Plan of Treatment Upcoming Encounters Date Type Specialty Care Team Description 08/30/2022 Office Visit Orthopedics Gigi Harrell DO [address] [place] [address] 09/01/2022 Cardiac Studies Cardiac Studies 09/15/2022 NeuroDiagnostic Study Neurophysiology Kasi Mcdaniel DO [address] [place] [address] 01/23/2023 Office Visit Neurology Lynn Hoover MD [address] [place] [address] Scheduled Procedures Name Priority Associated Diagnoses Date/Ti [...] filedocumented as of this encounter Care Teams Asl Interpreter Relationship Specialty Start Date End Date Armani Hough MD PCP - General Family Medicine 09/20/16 documented as of this encounter
--- OUTSIDE RECORDS SUMMARY | 2023-02-20 21:38 | External Medical Summary ---
Author Name Unknown Address Unknown Organization K01:[facility] [address] [place] [address] [place] [address] Laboratory Report Ordering Provider Test Date Status WHITNEY NAJERA 07/04/2022 09:37:40 Final Observation Date Value Abnormality Reference (Units ) Status BUN 07/04/2022 09:37:40 18 6-20 (mg/d L) Final Performing Location [facility] - [address] [place] [address]
--- OUTSIDE RECORDS SUMMARY | 2023-02-20 21:38 | External Medical Summary | Summary of Care ---
Author Name Unknown Organization [facility] Address [address] [place] [address] Phone [phone] Care Team Providers Care Door Liner Name Role Phone Armani Hough MD Primary Care Provider + [phone] Reason for Referral * Precert (Within 10 days (routine)) - Pending Review Specialty Diagnoses / Procedures Referred By Contac t Referred To Contact Cardiac Studies Diagnoses Embolic stroke involving right posterior cerebral artery (HCC) Procedures ECHO, COMPLETE (2D), TRANS-THORACIC Lynn Hoover MD 200 [facility] [place] [address] Referral ID Status Reason Start Date Expiration Date Visits Requested Visits Authorized [id number] Pending Review Precert 08/10/[phone] Reason for Visit * Reason Onset Date Comments Cardiology Study 08/10/2022 Encounter Details Date Type Department Care Team Description 08/10/2022 Telephone Neurology State Aleks Valentin [facility] [place] [address] Lynn Hoover MD 200 [facility] [place] [address] Cardiology Study Allergies No known active allergiesdocumented as of this encounter (statuses as of 08/10/2022) Medications Medication Sig Dispensed Refills Start Date [...] hour prior to MRI. Must have a diesel pile driver operator 1 Tablet 0 06/24/2022 Active Additional Information [...] as of this encounter (statuses as of 08/10/2022) Active Problems Problem Noted Date Hx of [...] as of this encounter (statuses as of 08/10/2022) Resolved Problems Problem Noted Date Resolved Date [...] Lipid Taxonomy. Other chronic sinusitis 10/17/19 18 Forestry Fire Aide's cramp 03/28/2019 documented as of this encounter (statuses as of 08/10/2022) Immunizations Name Administration Dates Next Due COVID-19 [...] encounter Miscellaneous Notes * Telephone Encounter - Homar De Luna RDCS - 08/10/2022 8:16 AM EDT New echo order placed to be in future status. documented in this encounter Plan of Treatment Upcoming Encounters Date Type Specialty Care Team Description 08/17/2022 Cardiac Studies Cardiac Studies 08/17/2022 Imaging Radiology 08/17/2022 Nurse Only Ancillary Nurse [facility] [address] [facility] [place] [address] 08/30/2022 Office Visit Orthopedics Gigi Harrell, DO [address] [place] [address] 09/15/2022 NeuroDiagnostic Study Neurophysiology Kasi Mcdaniel DO [address] [place] [address] 01/23/2023 Office Visit Neurology Lynn Hoover MD [address] [place] [address] Scheduled Orders Name Type Priority Associated Diagnoses Orde r Schedule ECHO, COMPLETE (2D), TRANS-THORACIC Echocardiology Routine Embolic stroke involving right posterior cerebral artery (HCC) Expected: 08/10/2022, Expires: 08/11/2023 Scheduled Procedures Name Priority Associated Diagnoses Date/Ti [...] infarction documented in this encounter Care Teams Door Liner Relationship Specialty Start Date End Date Armani Hough MD PCP - General Family Medicine 09/20/16 documented as of this encounter
--- OUTSIDE RECORDS SUMMARY | 2023-02-20 21:38 | External Medical Summary ---
Author Name Unknown Address Unknown Organization K01:[facility] [place] - [address] [place] [address] Laboratory Report Ordering Provider Test Date Status WHITNEY NAJERA 07/04/2022 09:37:40 Final Observation Date Value Abnormality Reference (Units ) Status Creatinine 07/04/2022 09:37:40 0.9 0.6-1.2 (mg/dL) Final Glomerular filtration rate/1.73 sq M.predicted [Volume Rate/Area] in Serum, Plasma or Blood by Creatinine-based formula (CKD-EPI) 07/04/2022 09:37:40 >90 >=60 (mL/min) Final Performing Location [facility] - [address] [place] [address]
--- OUTSIDE RECORDS SUMMARY | 2023-02-20 21:38 | External Medical Summary | Summary of Care ---
Author Name Unknown Organization [facility] Address [address] [place] [address] Phone [phone] Care Team Providers Care Stake Setter Name Role Phone Armani Hough MD Primary Care Provider + [phone] Encounter Details Date Type Department Care Team Description 07/11/2022 Result Scan Unspecified Department <No scans attached> Allergies No known active allergiesdocumented as of [...] hour prior to MRI. Must have a hearse driver 1 Tablet 0 06/24/2022 Active Additional Information Patient not taking.Reported on 08/05/2022 documented as of this encounter (statuses as [...] Lipid Taxonomy. Other chronic sinusitis 10/17/19 18 Boat Patcher Plastic's cramp 03/28/2019 documented as of this encounter [...] Radiology 08/17/2022 Nurse Only Ancillary Nurse Stewart [address] [place] [address] 08/30/2022 Office Visit Orthopedics Gigi Harrell, DO [address] [place] [address] 09/15/2022 NeuroDiagnostic Study Neurophysiology Kasi Mcdaniel DO [facility] [place] [address] 01/23/2023 Office Visit Neurology Lynn Hoover MD [address] [place] [address] Scheduled Procedures Name Priority Associated Diagnoses Date/Ti [...] Procedure Name Priority Date/Time Associated Diagnosis Comments RADIOLOGY SCANNED RESULT 07/11/2022 documented in this encounter Results * RADIOLOGY SCANNED RESULT (07/11/2022) 07/11/2022 No Physician Data Unknown DIAGNOSTIC RAD IOLOGY SERVICES documented in this encounter Care Teams Stake Setter Relationship Specialty Start Date End Date Armani Hough MD PCP - General Family Medicine 09/20/16 documented as of this encounter
--- OUTSIDE RECORDS SUMMARY | 2023-02-20 21:38 | External Medical Summary | Summary of Care ---
Author Name Unknown Organization [facility] Address [address] [place] [address] Phone [phone] Care Team Providers Care Sock Drier Name Role Phone Armani Hough MD Primary Care Provider + [phone] Encounter Details Date Type Department Care Team Description 07/11/2022 Orders Only Neurology [facility] [address] [place] [address] Lynn Hoover MD [address] [place] [address] Allergies No known active allergiesdocumented as of this encounter (statuses as of 07/21/2022) Medications Medication Sig Dispensed Refills Start Date [...] hour prior to MRI. Must have a port cdl a driver 1 Tablet 0 06/24/2022 Active documented as of this encounter (statuses as of 07/21/2022) Active Problems Problem Noted Date Hx of [...] as of this encounter (statuses as of 07/21/2022) Resolved Problems Problem Noted Date Resolved Date [...] Lipid Taxonomy. Other chronic sinusitis 10/17/19 18 Mechanic Insulator's cramp 03/28/2019 documented as of this encounter (statuses as of 07/21/2022) Immunizations Name Administration Dates Next Due COVID-19 [...] Office Visit Neurology Lynn Hoover MD 200 [place] [address] Scheduled Procedures Name Priority Associated Diagnoses Date/Ti [...] Name Priority Date/Time Associated Diagnosis Comments RADIOLOGY EXAM - MRI (IMAGES ONLY, NO REPORT) Routine 07/11/2022 8:05 AM EST documented in this encounter Results * RADIOLOGY EXAM - MRI (IMAGES ONLY, NO REPORT) (07/11/2022 8:05 AM EST) 07/11/2022 8:03 AM EST Narrative Scheduling, Silent - 07/21/2022 9:26 AM EDT This is an imaging study not interpreted or resulted by a [facility] or [facility] contracted radiologist. Lynn Hoover MD RAD MRI-MRA documented in this encounter Care Teams Sock Drier Relationship Specialty Start Date End Date Armani Hough MD PCP - General Family Medicine 09/20/16 documented as of this encounter
--- OUTSIDE RECORDS SUMMARY | 2023-02-20 21:38 | External Medical Summary | Summary of Care ---
Author Name Unknown Organization [place] [address] Care Team Providers Care Shim Plug Cutter Name Role Phone Armani Hough MD Primary Care Provider Reason for Visit * Reason Comments Outpatient Testing Encounter Details Date Type Department Care Team Description 07/04/2022 Laboratory Laboratory [address] [place] [address] [place] [address] Benign paroxysmal vertigo, unspecified laterality Allergies No known active allergiesdocumented as of this encounter (statuses as of 07/04/2022) Medications Medication Sig Dispensed Refills Start Date [...] hour prior to MRI. 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 Other chronic sinusitis 10/17/19 18 Marketing Executive's cramp 03/28/2019 documented as of this encounter (statuses as of 07/04/2022) Immunizations Name Administration Dates Next Due COVID-19 [...] 01/23/2023 Office Visit Neurology Lynn Hoover MD [address] [place] [address] Pending Results Name Type Priority Associated Diagnoses Date /Time CREATININE Lab Routine Benign paroxysmal vertigo, unspecified laterality 07/04/2022 9:37 AM EST BUN Lab Routine Benign paroxysmal vertigo, unspecified laterality 07/04/2022 9:37 AM EST Scheduled Procedures Name Priority Associated Diagnoses Date/Ti me COLONOSCOPY FLEXIBLE PROXIMAL DIAGNOSTIC Recall History of colon polyps Health Maintenance Due Date Last Done Comments COVID-19 Vaccine (3 - Moderna risk series) 09/07/2020 08/10/2020, 07/13/2020 Depression Screening, Annual for Pts 12 and Over 12/08/2020 12/09/2019 DTaP,Tdap,and Td Vaccines (2 - Td or Tdap) 12/12/2021 12/13/2011, 07/06/2006 GFR - Renal Function 01/23/2023 01/23/2022, 01/21/2022, 12/09/2020, Additional history exists COLONOSCOPY-EVERY 3 YRS AGES 18-100 02/11/2023 02/12/2020, 02/12/2020, 06/03/2016, Additional history exists Albumin/Creatinine Ratio 06/28/2024 06/28/2021 [...] as of this encounter Visit Diagnoses Diagnosis Benign paroxysmal vertigo, unspecified laterality documented in this encounter Care Teams Shim Plug Cutter Relationship Specialty Start Date End Date Armani Hough MD PCP - General Family Medicine 09/20/16 documented as of this encounter
--- OUTSIDE RECORDS SUMMARY | 2023-02-20 21:38 | External Medical Summary | Summary of Care ---
Author Name Unknown Organization [facility] Address [address] [place] [address] Phone [phone] Care Team Providers Care Payroll And Benefits Manager Name Role Phone Armani Hough MD Primary Care Provider + [phone] Reason for Visit * Reason Comments Follow Up Right wrist Encounter Details Date Type Department Care Team Description 08/09/[address] [facility] [address] [place] [address] Gigi Harrell, [address] [place] [address] Primary osteoarthritis of both first carpometacarpal joints* Allergies No known active allergiesdocumented as of this encounter (statuses as of 08/09/2022) Medications Medication Sig Dispensed Refills Start Date [...] hour prior to MRI. Must have a speedboat driver 1 Tablet 0 06/24/2022 Active Additional [...] 1 mL inj 2 mLIndications:Primary osteoarthritis of both first carpometacarpal joints 2 mL IJ ONCE 08/09/2022 08/09/2022 Active lidocaine 1% 1 mL - triamcinolone acetonide 40 mg/mL 1 mL inj 2 mLIndications:Primary osteoarthritis of both first carpometacarpal joints 2 mL IJ ONCE 08/09/2022 08/09/2022 Active documented as of this encounter (statuses as of 08/09/2022) Active Problems Problem Noted Date Hx of [...] as of this encounter (statuses as of 08/09/2022) Resolved Problems Problem Noted Date Resolved Date [...] Lipid Taxonomy. Other chronic sinusitis 10/17/19 18 Nut Tapper's cramp 03/28/2019 documented as of this encounter (statuses as of 08/09/2022) Immunizations Name Administration Dates Next Due COVID-19 [...] encounter Progress Notes * Gigi Harrell, - 08/09/2022 11:15 AM EDT Cuong Li [id number] Cuong Li is a 67 year old male who presents for f/u to [facility] for right and left thumb injury/pain. Cuong Li is here unaccompanied, last seen by me on 03/19/21 for right Date of injury: no injury Handedness: right History: As above TODAY:now having similar pain in the left would like b/l injections, still do not want surgical cosult Previous wrist injuries include: none ROS EXAM: Constitional: No change in weight, No weakness, No fatigue and No fevers, sweats, or chills ,woul als olike to schedule troch injection last done in 2019 Past Medical History: Diagnosis Date Avulsion of [...] right Trochanteric bursitis of right hip 06/10/2020 Nut Tapper's cramp Current Outpatient Medications Medication Sig Dispense Refill [...] hour prior to MRI. Must have a speedboat driver (Patient not taking: Reported on 08/05/2022) 1 Tablet 0 Desonide 0.05 % External Cream APPLY TO PINK PATCHES ON THE FACE TWICE DAILY NEEDED FOR FLARES OF PSORIASIS 15 g 3 Atorvastatin Calcium 40 MG Oral Tablet (Lipitor) TAKE 1 TABLET BY MOUTH EVERYDAY AT BEDTIME 90 Tablet 0 Aspirin 81 MG Oral Capsule One day No current facility-administered medications for this visit. Physical Exam Peripheral pulses: normal Skin examination: normal Mood and Effect: normal Coordination: normal Sensation: normal Hand exam, bilateral Inspection:no swelling Palpation: tender to palpation at 1st CMC joint right and left Range of motion: symmetric and normal in both hands Rotation, angulation, or crossover: no Thumb: Grind test: Crepitance YES b/l Collateral ligaments stable - yes Barbara's test: negative Strength: Sales Engineer Account Manager - 5/5 Finger spread - 5/5 Flex - 5/5 Ext - 5/5 Thumb pinch -5/5 Carpal tenderness: negative Radiology: repeat not indicated, will hold on left as well AP: will do b/l inj f/u as needed may still consider surgical hand consult would also want left hand images, 08/30 for b/l troch as well Primary osteoarthritis of both first carpometacarpal joints (Primary) - lidocaine 1% 1 mL - triamcinolone acetonide 40 mg/mL 1 mL inj 2 mL - lidocaine 1% 1 mL - triamcinolone acetonide 40 mg/mL 1 mL inj 2 mL - POINT OF CARE US JOINT INJECTION INTERMEDIATE, ORTHO Gigi Harrell, DO Primary Care Sports Medicine Orthopaedics [facility] [address] [facility] [address] Cuong Li [id number] Procedure Note, 1st carpal metacarpal joint, Bilateral: Time out: Prior to injection, a time [...] Gigi Harrell DO Primary Care Sports Medicine [facility] [place] [address] documented in this encounter Nursing Notes * Joel Posada - 08/09/2022 10:49 AM EDT Follow up Patient Follow up: Wrist Side: Bilateral Date of last visit: 03/19/21 Improvement since last office visit: 30 percent. Prior Treatment: Injection Here for Test Results: no Goals for this appointment: tx documented in this encounter Plan of Treatment Upcoming Encounters Date Type Specialty Care Team Description 08/17/2022 Cardiac Studies Cardiac Studies 08/17/2022 Imaging Radiology 08/17/2022 Nurse Only Ancillary Nurse Stewart [address] [place] [address] 08/30/2022 Office Visit Orthopedics Gigi Harrell DO [address] [place] [address] 09/15/2022 NeuroDiagnostic Study Neurophysiology Kasi Mcdaniel DO [address] [place] [address] 01/23/2023 Office Visit Neurology Lynn Hoover MD [address] [place] [address] Scheduled Procedures Name Priority Associated Diagnoses Date/Ti [...] Associated Diagnosis Comments POINT OF CARE US JOINT INJECTION INTERMEDIATE, ORTHO Routine 08/09/2022 10:21 AM EDT Primary osteoarthritis of both first carpometacarpal joints documented in this encounter Results * POINT OF CARE US JOINT INJECTION INTERMEDIATE, ORTHO (08/09/2022 10:21 AM EDT) Anatomical Region Laterality Modality Musculoskeletal Radiographic Ebony ging 08/09/2022 10:2 1 AM EDT Narrative 08/09/2022 11:33 AM EDT [facility] - Ultrasound Program Exam Date: 08/09/2022 Exam Type: Ortho Mica Spreader: Gigi Harrell Attending: Gigi Harrell Worksheet: Ortho Injection Exam Information: Impression: Procedure Note, 1st carpal metacarpal joint, Bilateral: ? Time out: Prior to injection, a [...] Gigi Harrell DO Primary Care Sports Medicine [facility] [place] [address] Physician Signature: I reviewed the images and approve the documentation above.: Signed by Gigi Harrell on Tuesday, August 09, 2022 at 11:32:50 AM Procedure Note Gigi Harrell DO - 08/09/2022 [facility] - Ultrasound Program Exam Date: 08/09/2022 Exam Type: Ortho Mica Spreader: Gigi Harrell Attending: Gigi Harrell Worksheet: Ortho Injection Exam Information: Impression: Procedure Note, 1st carpal metacarpal joint, Bilateral: ? Time out: Prior to injection, a [...] Gigi Harrell, DO Primary Care Sports Medicine [facility] [place] [address] Physician Signature: I reviewed the images and approve the documentation above.: Signed byGigi Harrell on Tuesday, August 09, 2022 at 11:32:50 AM Gigi Harrell DO RAD ULTRASOUND documented in this encounter Visit Diagnoses Diagnosis Primary osteoarthritis of both first carpometacarpal joints- Primary Primary localized osteoarthrosis, hand documented in this encounter Care Teams Payroll And Benefits Manager Relationship Specialty Start Date End Date Armani Hough MD PCP - General Family Medicine 09/20/16 documented as of this encounter
--- OUTSIDE RECORDS SUMMARY | 2023-02-20 21:38 | External Medical Summary | Summary of Care ---
Author Name Unknown Organization [facility] Address [address] [place] [address] Phone [phone] Care Team Providers Care Dry Wall Installer Name Role Phone Armani Hough MD Primary Care Provider + [phone] Encounter Details Date Type Department Care Team Description 07/11/2022 Hospital Encounter Radiology Film [facility] [address] [place] [address] Allergies No known active allergiesdocumented as of this encounter (statuses as of 07/22/2022) Medications Medication Sig Dispensed Refills Start Date [...] hour prior to MRI. Must have a corporate driver 1 Tablet 0 06/24/2022 Active documented as of this encounter (statuses as of 07/22/2022) Active Problems Problem Noted Date Hx of [...] as of this encounter (statuses as of 07/22/2022) Resolved Problems Problem Noted Date Resolved Date [...] Lipid Taxonomy. Other chronic sinusitis 10/17/19 18 Media Reconciliation Specialist's cramp 03/28/2019 documented as of this encounter (statuses as of 07/22/2022) Immunizations Name Administration Dates Next Due COVID-19 [...] Encounters Date Type Specialty Care Team Description 08/09/2022 Office Visit Orthopedics Gigi Harrell DO [address] [place] [address] 01/23/2023 Office Visit Neurology Lynn Hoover MD [address] [place] [address] Scheduled Procedures Name Priority Associated Diagnoses Date/Ti [...] interpreted or resulted by a [facility] or [employer] contracted radiologist. Lynn Hoover MD RAD MRI-MRA documented in this encounter Care Teams Dry Wall Installer Relationship Specialty Start Date End Date Armani Hough MD PCP - General Family Medicine 09/20/16 documented as of this encounter
--- OUTSIDE RECORDS SUMMARY | 2023-02-20 21:38 | External Medical Summary | Summary of Care ---
Author Name Unknown Organization [facility] Address [address] [place] [address] Phone [phone] Care Team Providers Care College Associate Name Role Phone Armani Hough MD Primary Care Provider + [phone] Reason for Visit * Reason Comments Follow Up Right wrist Encounter Details Date Type Department Care Team Description 08/09/2022 Office Visit Orthopaedics [facility] [address] [place] [address] Gigi Harrell, [address] [facility] [place] [address] Primary osteoarthritis of both first carpometacarpal joints* [...] prior to MRI. 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 Other chronic sinusitis 10/17/19 18 Industrial Engineering Technician's cramp 03/28/2019 documented as of this encounter [...] - 08/09/2022 11:15 AM EDT Cuong Li [id number] Cuong Li is a 67 year old male who presents for f/u to [facility] for right and left thumb [...] right Trochanteric bursitis of right hip 06/10/2020 Industrial Engineering Technician's cramp Current Outpatient Medications Medication Sig Dispense [...] prior to MRI. 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 van cdl truck driver (Patient not taking: Reported on [...] stable - yes Barbara's test: negative Strength: Continuous Improvement Lead - 5/5 Finger spread - 5/5 Flex [...] Harrell, DO Primary Care Sports Medicine Orthopaedics [facility] [address] [place] [address] Cuong Li [id number] Procedure Note, 1st carpal metacarpal joint, Bilateral: [...] Gigi Harrell DO Primary Care Sports Medicine [facility] [place] [address] documented in this encounter Nursing [...] Radiology 08/17/2022 Nurse Only Ancillary Nurse Stewart [address] [place] [address] 08/30/2022 Office Visit Orthopedics Gigi Harrell DO [address] [place] [address] 09/15/2022 NeuroDiagnostic Study Neurophysiology Kasi Mcdaniel DO [address] [facility] [address] 01/23/2023 Office Visit Neurology Lynn Hoover MD [address] [facility] [address] Scheduled Procedures Name Priority Associated Diagnoses Date/Ti [...] AM EDT Narrative 08/09/2022 11:33 AM EDT [facility] - Ultrasound Program Exam Date: 08/09/2022 Exam Type: Ortho Dev Manager: Gigi Harrell Attending: Gigi Harrell Worksheet: Ortho [...] Gigi Harrell DO Primary Care Sports Medicine [facility] [place] [address] Physician Signature: I reviewed the images and approve the documentation above.: Signed by Gigi Harrell on Tuesday, August 09, 2022 at 11:32:50 AM Procedure Note Gigi Harrell DO - 08/09/2022 [facility] - Ultrasound Program Exam Date: 08/09/2022 Exam Type: Ortho Dev Manager: Gigi Harrell Attending: Gigi Harrell Worksheet: Ortho [...] Gigi Harrell, DO Primary Care Sports Medicine [facility] [place] [address] Physician Signature: I reviewed the [...] 2 mL 2 mL, Injection, ONCE, On Mon08/09/22 at 1200, For 1 dose, Lidocaine 1% 1mL Triamcinolone Acetonide 40 mg/mL 1 mL (Final concentration = 20 mg/mL) REFRIGERATE and SHAKE WELL Given 08/09/2022 11:56 AM EDT 2 mL Wrist Right lidocaine 1% 1 mL - triamcinolone acetonide 40 mg/mL 1 mL inj 2 mL 2 mL, Injection, ONCE, On Mon08/09/22 at 1200, For 1 dose, Lidocaine 1% 1mL Triamcinolone Acetonide 40 mg/mL 1 mL (Final concentration = 20 mg/mL) REFRIGERATE and SHAKE WELL Given 08/09/2022 11:55 AM EDT 2 mL Wrist Left documented in this encounter Care Teams College Associate Relationship Specialty Start Date End Date Armani Hough MD PCP - General Family Medicine 09/20/16 documented as of this encounter
--- OUTSIDE RECORDS SUMMARY | 2023-02-20 21:38 | External Medical Summary | Summary of Care ---
Author Name Unknown Organization [facility] Address [address] [place] [address] Phone [phone] Care Team Providers Care Top Precipitator Operator Name Role Phone Armani Hough MD Primary Care Provider + [phone] Reason for Referral * Precert (Within 10 days (routine)) - Pending Review Specialty Diagnoses / Procedures Referred By Contac t Referred To Contact Cardiac Studies Diagnoses Embolic stroke involving right posterior cerebral artery (HCC) Procedures ECHO, COMPLETE (2D), TRANS-THORACIC Lynn Hoover MD [address] [facility] [place] [address] Referral ID Status Reason Start Date Expiration Date Visits Requested Visits Authorized [id number] Pending Review Precert 08/05/2022 999 999 Reason for Visit * Reason Comments Return Neuro Encounter Details Date Type Department Care Team Description 08/05/2022 Office Visit Neurology [facility] [address] [facility] [place] [address] Lynn Hoover MD [address] [facility] [place] [address] Embolic stroke involving right posterior cerebral artery (HCC)*; Numbness and tingling in left arm Allergies No known active allergiesdocumented as of this encounter (statuses as of 08/05/2022) Medications Medication Sig Dispensed Refills Start Date [...] hour prior to MRI. Must have a recycle driver 1 Tablet 0 06/24/2022 Active Additional [...] as of this encounter (statuses as of 08/05/2022) Active Problems Problem Noted Date Hx of [...] as of this encounter (statuses as of 08/05/2022) Resolved Problems Problem Noted Date Resolved Date [...] Lipid Taxonomy. Other chronic sinusitis 10/17/19 18 Head Irrigator's cramp 03/28/2019 documented as of this encounter (statuses as of 08/05/2022) Immunizations Name Administration Dates Next Due COVID-19 [...] Sign Reading Time Taken Comments Blood Pressure 134/80 08/05/2022 4:12 PM EDT Pulse 72 08/05/2022 4:12 PM EDT Temperature 36.6 C (97.9 F) 08/05/2022 4:12 PM ED T Respiratory Rate 16 08/05/2022 4:12 PM EDT Oxygen Saturation - - Inhaled Oxygen Concentration - - Weight 90.4 kg (199 lb 4.8 oz) 08/05/2022 4:12 P M EDT Height - - Body Mass Index 29.43 12/23/2020 6:00 PM EDT documented in this encounter Functional Status [...] as of this encounter Progress Notes * Lynn Hoover MD - 08/05/2022 4:41 PM EDT CLINIC NOTES [facility] [place] [address] [facility] [place] [address] Cuong Li : 1955 NEUROLOGY OUTPATIENT NOTE 08/05/2022 HISTORY: The patient is referred for consultation by Dr. Hough, who will be receiving a copy of this note. 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 Had at instability worse with showering and tipping his head was Physical therapy was not helpful. 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 Patient has no history of stroke or transient ischemic attacks. He does have tingling in left fingers 4 and 5. Last LDL [id number]. MRI the brain as above is reviewed both images and report by myself and reviewed the images with the patient Past Medical History: Diagnosis Date Avulsion of [...] right Trochanteric bursitis of right hip 06/10/2020 Head Irrigator's cramp Patient Active Problem List Diagnosis Code [...] N18.2 Hx of nonmelanoma skin cancer Z85.828 Past Surgical History: Procedure Laterality Date COLONOSCOPY W/ LESION REMOVAL, SNARE 10/15/2010 polyp x1, path shows adenomatous tissue repeat in 5 years COLONOSCOPY, DIAGNOSTIC (RECTUM) 06/03/2016 7,6,2 mm polyps ascending, 6,3 mm polyps transverse colon Repeat 3 years/COLONOSCOPY FLEXIBLE PROXIMAL DIAGNOSTIC performed by Antoinette Godinez MD at ENDOSCOPY [facility] COLONOSCOPY, DIAGNOSTIC (RECTUM) 02/12/2020 2 adenomatous polyps in transverse colon, repeat 3 yrs / COLONOSCOPY FLEXIBLE PROXIMAL DIAGNOSTIC performed by Antoinette Godinez MD at ENDOSCOPY [facility] CT LOWER EXTREMITY W CONTRAST Right 05/26/2017 [...] ABDOMEN LIMITED 05/30/2012 normal, no kidney stones Social History Socioeconomic History Marital status: Spouse name: Not on file Number of children: 2 Years of education: Not on file Highest education level: Not on file Occupational History 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 Two children in good health. 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 Indications: in am 90 Tab 3 BuPROPion HCl ER, SR, 200 MG TB12 Take 1 Tablet by mouth in the morning and 1 Tablet before bedtime. 1 twice daily. 0 traZODone (DESYREL) 100 MG Tablet TAKE 1/2 TABLET DAILY AT BEDTIME (Patient taking differently:One at bedtime) 90 Tab 1 Baclofen 10 MG Oral Tablet (Lioresal) TAKE [...] DAILY ASNEEDED FOR FLARES. 60 g 2 Desonide 0.05 % External Cream APPLY TO PINK PATCHES ON THE FACE TWICE DAILY NEEDED FOR FLARES OF PSORIASIS 15 g 3 Atorvastatin Calcium 40 MG Oral Tablet (Lipitor) TAKE 1 TABLET BY MOUTH EVERYDAY AT BEDTIME 90 Tablet 0 Aspirin 81 MG Oral Capsule One day VIAGRA 100 MG PO TABS one as needed 6 Tab 5 Fluocinonide 0.05 % External Cream Apply to rash on the abdomen twice daily as needed for flares 30 g 0 diazePAM 5 MG Oral Tablet (Valium) Take one tab one hour prior to MRI. Must have a recycle driver (Patient not taking: Reported on 08/05/2022) 1 Tablet 0 No current facility-administered medications for this visit. Review of patient's allergies indicates: No Known Allergies REVIEW OF SYSTEMS: As above PHYSICAL EXAM: BP 134/80 | Pulse 72 | Temp 36.6 C (97.9 F) (Tympanic) | Resp 16 | Wt 90.4 kg (199 lb 4.8 oz) | BMI 29.43 kg/m | BSA 2.1 m their normal visual walker to confrontation. Tinel's is negative at the left ulnar groove . Left hand strength is full and there is intact light touch in bilateral hands IMPRESSION: Instability which could still be labyrinthian not explained by MRI brain. Consider referral to balance Clinic. Could also be related to peripheral neuropathy plan on nerve conduction EMG.Due to numbness left fingers 4 and 5 will do the left hand and left leg. Chronic small-vessel vascular disease begin aspirin 81 mg. Small cortical infarction recommend echoZio carotid ultrasound. His last LDL was 101. He is supposed to have it repeated the goal LDL should be 70 or less. Return after the aforementioned studies Lynn Hoover MD 08/05/2022 4:41 PM documented in this encounter Nursing Notes * LAURENT Mendoza - 08/05/2022 4:09 PM EDT Chief Complaint Patient presents with Return Neuro documented in this encounter Plan of Treatment Upcoming Encounters Date Type Specialty Care Team Description 08/09/2022 Office Visit Orthopedics Gigi Harrell, DO [address] [place] [address] 08/17/2022 Cardiac Studies Cardiac Studies 08/17/2022 Imaging Radiology 09/15/2022 NeuroDiagnostic Study Neurophysiology Kasi Mcdaniel DO [address] [facility] [place] [address] 01/23/2023 Office Visit Neurology Lynn Hoover MD [address] [facility] [place] [address] Scheduled Orders Name Type Priority Associated Diagnoses Orde r Schedule ECHO, COMPLETE (2D), TRANS-THORACIC Echocardiology Routine Embolic stroke involving right posterior cerebral artery (HCC) Ordered: 08/05/2022 EXTERNAL EKG 8 TO 15 DAYS HOME ENROLLMENT Holter Routine Embolic stroke involving right posterior cerebral artery (HCC) Expected: 08/06/2022 (Approximate), Expires: 08/06/2023 VASC DUPLEX CAROTID BILAT Medical Imaging Routine Embolic stroke involving right posterior cerebral artery (HCC) Expected: 08/05/2022, Expires: 09/04/2022 Scheduled Procedures Name Priority Associated Diagnoses Date/Ti [...] (HCC)- Primary Cerebral embolism with cerebral infarction Numbness and tingling in left arm Disturbance of skin sensation documented in this encounter Care Teams Top Precipitator Operator Relationship Specialty Start Date End Date Armani Hough MD PCP - General Family Medicine 09/20/16 documented as of this encounter"
--- OUTSIDE RECORDS SUMMARY | 2023-02-20 21:38 | External Medical Summary | Summary of Care ---
Author Name Unknown Organization [facility] Address [address] [place] [address] Phone [phone] Care Team Providers Care Coal Passer Name Role Phone Armani Hough MD Primary Care Provider + [phone] Reason for Visit * Reason Onset Date Comments Advice 08/10/2022 Encounter Details Date Type Department Care Team Description 08/10/2022 Telephone Family Medicine [address] [address] Armani Hough MD [address] [place] [address] [place] [address] Advice Allergies No known active allergiesdocumented as of [...] hour prior to MRI. Must have a haul driver 1 Tablet 0 06/24/2022 Active Additional [...] Other chronic sinusitis 10/17/19 18 Director Of Premium Seat Sales's cramp 03/28/2019 documented as of this [...] encounter Miscellaneous Notes * Telephone Encounter - Marta Perez RN - 08/10/2022 4:34 PM EDT I called pt to let him know we could not find where this was ever on his chart. Pt stated" I know it was there for years, but thanks for your time" * Telephone Encounter - Armani Hough MD - 08/10/2022 4:27 PM EDT I can't see that it was ever listed under past medical history or in the problem list, including resolved problems. So I don't know what to say about that. Dr Hoover does not mention it either thatI can see. * Telephone Encounter - Della Gallo LPN - 08/10/2022 3:48 PM EDT Please advise Don't see this listed on current problem list * Telephone Encounter - RUTHY Marion - 08/10/2022 3:42 PM EDT Patient states that on his [facility] account he used to have mild dementia listed. Patient states that when he was looking at his [facility] account he noticed that it is no longer listed and healso noticed that it is not listed on his after visit papers. Patient would like to know why it is not listed. documented in this encounter Plan of Treatment Upcoming Encounters Date Type Specialty Care Team Description 08/17/2022 Cardiac Studies Cardiac Studies 08/17/2022 Imaging Radiology 08/17/2022 Nurse Only Ancillary Nurse Stewart [address] [place] [address] 08/30/2022 Office Visit Orthopedics Gigi Harrell, DO [address] [place] [address] 09/15/2022 NeuroDiagnostic Study Neurophysiology Kasi Mcdaniel DO [address] [place] [address] 01/23/2023 Office Visit Neurology Lynn Hoover MD [address] [place] [address] Scheduled Procedures Name Priority Associated Diagnoses Date/Ti [...] filedocumented as of this encounter Care Teams Coal Passer Relationship Specialty Start Date End Date Armani Hough MD PCP - General Family Medicine 09/20/16 documented as of this encounter
--- OUTSIDE RECORDS SUMMARY | 2023-02-20 21:38 | External Medical Summary | Summary of Care ---
Author Name Unknown Organization [facility] Address [address] [place] [address] Phone [phone] Care Team Providers Care Welder Production Line Arc Name Role Phone Armani Hough MD Primary Care Provider + [phone] Reason for Visit * Reason Comments Follow Up Right wrist Encounter Details Date Type Department Care Team Description 08/09/2022 Office Visit Orthopaedics [facility] [address] [place] [address] Gigi Harrell, [address] [facility] [place] [address] Primary osteoarthritis of both first carpometacarpal joints* [...] hour prior to MRI. Must have a driver engineer 1 Tablet 0 06/24/2022 Active Additional Information [...] Lipid Taxonomy. Other chronic sinusitis 10/17/19 18 Telephone Coin Box Collector's cramp 03/28/2019 documented as of this encounter [...] - 08/09/2022 11:15 AM EDT Cuong Li [id number] Cuong Li is a 67 year old male who presents for f/u to [facility] for right and left [...] right Trochanteric bursitis of right hip 06/10/2020 Telephone Coin Box Collector's cramp Current Outpatient Medications Medication Sig Dispense [...] hour prior to MRI. Must have a driver engineer (Patient not taking: Reported on 08/05/2022) 1 [...] stable - yes Barbara's test: negative Strength: Pet Technologist - 5/5 Finger spread - 5/5 Flex [...] Harrell, DO Primary Care Sports Medicine Orthopaedics [facility] [address] [place] [address] Cuong Li [id number] Procedure Note, 1st carpal metacarpal joint, Bilateral: [...] Gigi Harrell DO Primary Care Sports Medicine [facility] [place] [address] documented in this encounter Nursing Notes * oJel Posada - 08/09/2022 10:49 AM EDT Follow [...] Radiology 08/17/2022 Nurse Only Ancillary Nurse Stewart [address] [place] [address] 08/30/2022 Office Visit Orthopedics Gigi Harrell DO [address] [place] [address] 09/15/2022 NeuroDiagnostic Study Neurophysiology Kasi Mcdaniel DO [address] [place] [address] 01/23/2023 Office Visit Neurology Lynn Hoover MD [address] [place] [address] Scheduled Procedures Name Priority Associated Diagnoses Date/Ti [...] AM EDT Narrative 08/09/2022 11:33 AM EDT [facility] [place] - Ultrasound Program Exam Date: 08/09/2022 Exam Type: Ortho Chef German: Gigi Harrell Attending: Gigi Harrell Worksheet: Ortho [...] Gigi Harrell DO Primary Care Sports Medicine [facility] [place] [address] Physician Signature: I reviewed the images and approve the documentation above.: Signed by Gigi Harrell on Tuesday, August 09, 2022 at 11:32:50 AM Procedure Note Gigi Harrell DO - 08/09/2022 [facility] [place] - Ultrasound Program Exam Date: 08/09/2022 Exam Type: Ortho Chef German: Gigi Harrell Attending: Gigi Harrell Worksheet: Ortho [...] Gigi Harrell, DO Primary Care Sports Medicine [facility] [place] [address] Physician Signature: I reviewed the [...] Left documented in this encounter Care Teams Welder Production Line Arc Relationship Specialty Start Date End Date Armani Hough MD PCP - General Family Medicine 09/20/16 documented as of this encounter
--- OUTSIDE RECORDS SUMMARY | 2023-02-20 21:39 | External Medical Summary | Summary of Care ---
Author Name Unknown Organization [place] [address] Care Team Providers Care Vat Tender Name Role Phone Armani Hough MD Primary Care Provider [phone] Reason for Visit * Reason Onset Date Comments Medication Refill 06/21/2022 Encounter Details Date Type Department Care Team Description 06/21/2022 Refill Derm[address] [place] [address] Ismael Lynn PA-C [address] [place] [address] [place] [address] Other psoriasis; Inverse psoriasis Allergies No known active allergiesdocumented as of this encounter (statuses as of 06/21/2022) Medications Medication Sig Dispensed Refills Start Date [...] Reported on 01/21/2022 Fluocinonide 0.05 % External CreamIndications:A llergic contact [...] 1 06/28/2021 Active Desonide 0.05 % External CreamIndications:O ther psoriasis,Inverse psoriasis Apply to pink patches on the face twice daily as needed for flares of psoriasis 60 g 1 11/15/2021 Active Hydrocortisone 2.5 % External OintmentIndication s:Dermatitis Apply to rash on the face twice daily x 3-4 days, then 2-3 x's per week. 15 g 1 11/16/2021 Active Atorvastatin Calcium 40 MG Oral Tablet (Lipitor)Indicatio ns:Hyperlipidemia LDL goal <130 TAKE 1 TABLET BY MOUTH EVERYDAY AT BEDTIME 90 Tablet 1 12/17/2021 Active Tacrolimus 0.1 % External Ointment (Protopic)Indicati ons:Other psoriasis,Inverse psoriasis APPLY TO PSORIASIS ON THE GENITALS TWICE DAILY NEEDED FOR FLARES. 60 g 2 06/21/2022 Active Tacrolimus 0.1 % External Ointment (Protopic)Indicati ons:Other psoriasis,Inverse psoriasis APPLY TO PSORIASIS ON THE GENITALS TWICE DAILY NEEDED FOR FLARES. 60 g 2 03/22/2021 3 Discontinue d(Refill) documented as of this encounter (statuses as of 06/21/2022) Active Problems Problem Noted Date Hx of [...] as of this encounter (statuses as of 06/21/2022) Resolved Problems Problem Noted Date Resolved Date [...] Lipid Taxonomy. Other chronic sinusitis 10/17/19 18 Parts Puller's cramp 03/28/2019 documented as of this encounter (statuses as of 06/21/2022) Immunizations Name Administration Dates Next Due COVID-19 [...] encounter Miscellaneous Notes * Telephone Encounter - Ismael Lynn PA-C - 06/21/2022 11:04 AM EST Signed Prescriptions: Disp Refills Tacrolimus 0.1 % External Ointment (Protop*60 g 2 Sig: APPLY TO PSORIASIS ON THE GENITALS TWICE DAILY NEEDED FOR FLARES. Authorizing Provider: ISMAEL LYNN * Telephone Encounter - RUTHY Cornejo - 06/21/2022 11:00 AM ESTPending Prescriptions: Disp Refills Tacrolimus 0.1 % External Ointment (Protop*60 g 2 Sig: APPLY TOPSORIASIS ON THE GENITALS TWICE DAILY NEEDED FOR FLARES. documented in this encounter Plan of Treatment Upcoming Encounters Date Type Specialty Care Team Description 01/23/2023 Office Visit Neurology Lynn Hoover MD [address] [place] [address] Scheduled Procedures Name Priority Associated Diagnoses Date/Ti me COLONOSCOPY FLEXIBLE PROXIMAL DIAGNOSTIC Recall History of colon polyps Health Maintenance Due Date Last Done Comments COVID-19 Vaccine (3 - Moderna risk series) 09/07/2020 08/10/2020, 07/13/2020 Depression Screening, Annual for Pts 12 and Over 12/08/2020 12/09/2019 DTaP,Tdap,and Td Vaccines (2 - Td or Tdap) 12/12/2021 12/13/2011, 07/06/2006 Alb / Creat Ratio 06/28/2022 06/28/2021 GFR - Renal Function 01/23/2023 01/23/2022, 01/21/2022, 12/09/2020, Additional history exists COLONOSCOPY-EVERY 3 YRS AGES 18-100 02/11/2023 02/12/2020, 02/12/2020, 06/03/2016, Additional history exists Diabetes Screening 01/23/2025 01/23/2022, 0 01/21/2022, 12/09/2020, [...] psoriasis documented in this encounter Care Teams Vat Tender Relationship Specialty Start Date End Date Armani Hough MD PCP - General Family Medicine 09/20/16 documented as of this encounter
--- OUTSIDE RECORDS SUMMARY | 2023-02-20 21:39 | External Medical Summary | Summary of Care ---
Author Name Unknown Organization [place] [address] Care Team Providers Care Inspecting Machine Adjuster Name Role Phone Armani Hough MD Primary Care Provider [phone] Encounter Details Date Type Department Care Team Description 01/23/2022 Scan Encounter Family Medicine [address] [address] Armani Hough MD [address] [place] [address] <No scans attached> Allergies No known active allergiesdocumented as of this encounter (statuses as of 02/19/2022) Medications Medication Sig Dispensed Refills Start Date [...] 3 times a day. 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 60 g 2 03/22/2021 Active Metoprolol Tartrate 25 MG Oral Tablet [...] AT BEDTIME 90 Tablet 1 12/17/2021 Active documented as of this encounter (statuses as of 02/19/2022) Active Problems Problem Noted Date Hx of [...] as of this encounter (statuses as of 02/19/2022) Resolved Problems Problem Noted Date Resolved Date [...] Lipid Taxonomy. Other chronic sinusitis 10/17/19 18 Flatlock Sewing Machine Operator's cramp 03/28/2019 documented as of this encounter (statuses as of 02/19/2022) Immunizations Name Administration Dates Next Due COVID-19 [...] Tobacco Use Types Packs/Day Years Used Date Former Smoker Cigarettes 0.25 40 Quit: 05/26 Smokeless Tobacco: Never Used Comments:quit for 10 years t hen restarted [...] Encounters Date Type Specialty Care Team Description 03/23/2022 Office Visit Dermatology Delilah Lynn PA-C [address] [place] [address] [place] [phone] 01/23/2023 Office Visit Neurology Lynn Hoover MD [address] [place], [place] [address] [address] Scheduled Procedures Name Priority Associated Diagnoses Date/Ti [...] Ratio 06/28/2022 06/28/2021 GFR - Renal Function 01/21/2023 01/23/2022, 01/21/2022, 12/09/2020, Additional history exists COLONOSCOPY-EVERY 3 YRS AGES 18-100 02/11/2023 02/12/2020, 02/12/2020, 06/03/2016, Additional history exists Diabetes Screening 01/21/2025 01/23/2022, 0 01/21/2022, 12/09/2020, Additional history exists [...] this topic documented as of this encounter Implants Not on filedocumented as of this encounter Advance Directives Documents on File Type Date Recorded Patient Wallpaper Scraper Expl anation Advanced Directive Advanced Directive Advanced Directive Advanced Directive Advanced Directive Advanced Directive Advanced Directive Advanced Directive Advanced Directive Advanced Directive Advanced Directive Advanced Directive Advanced Directive Advanced Directive Advanced Directive Advanced Directive Advanced Directive Advanced Directive Advanced Directive Advanced Directive Advanced Directive Advanced Directive Advanced Directive Advanced Directive Advanced Directive Advanced Directive Advanced Directive Advanced Directive Advanced Directive Advanced Directive Advanced Directive Advanced Directive Advanced Directive Advanced Directive Advanced Directive Advanced Directive Advanced Directive Advanced Directive 06/03/2016 8:20 AM Care Teams Inspecting Machine Adjuster Relationship Specialty Start Date End Date Armani Hough MD PCP - General Family Medicine 09/20/16 documented as of this encounter
--- OUTSIDE RECORDS SUMMARY | 2023-02-20 21:39 | External Medical Summary | Summary of Care ---
Author Name Unknown Organization [place] [address] Care Team Providers Care Patent Prosecution Paralegal Name Role Phone Armani Hough MD Primary Care Provider [phone] Encounter Details Date Type Department Care Team Description 01/22/2022 Result Scan Unspecified Department <No scans attached> [...] Lipid Taxonomy. Other chronic sinusitis 10/17/19 18 Surgery Attendant's cramp 03/28/2019 documented as of this encounter [...] 03/23/2022 Office Visit Dermatology Delilah Lynn PA-C [address] [place] [address] [place] [address] 01/23/2023 Office Visit Neurology Lynn Hoover MD [address] [place] [address] [place] [address] Scheduled Procedures Name Priority Associated Diagnoses Date/Ti [...] Procedure Name Priority Date/Time Associated Diagnosis Comments OUTSIDE LAB RESULTS 01/23/2022 RADIOLOGY SCANNED RESULT 01/23/2022 RADIOLOGY SCANNED RESULT 01/22/2022 RADIOLOGY SCANNED RESULT 01/22/2022 RADIOLOGY SCANNED RESULT 01/22/2022 RADIOLOGY SCANNED RESULT 01/22/2022 RADIOLOGY SCANNED RESULT 01/22/2022 RADIOLOGY SCANNED RESULT 01/22/2022 documented in this encounter Results * RADIOLOGY SCANNED RESULT (01/23/2022) Specimen Narrative * OUTSIDE LAB RESULTS (01/23/2022) Specimen Narrative * RADIOLOGY SCANNED RESULT (01/22/2022) Specimen Narrative * RADIOLOGY SCANNED RESULT (01/22/2022) Specimen Narrative * RADIOLOGY SCANNED RESULT (01/22/2022) Specimen Narrative * RADIOLOGY SCANNED RESULT (01/22/2022) Specimen Narrative * RADIOLOGY SCANNED RESULT (01/22/2022) Specimen Narrative * RADIOLOGY SCANNED RESULT (01/22/2022) Specimen Narrative documented in this encounter Advance Directives Documents on File Type Date Recorded Patient Cloud Engagement Partner Expl anation Advanced Directive Advanced Directive Advanced [...] Advanced Directive 06/03/2016 8:20 AM Care Teams Patent Prosecution Paralegal Relationship Specialty Start Date End Date Armani Hough MD PCP - General Family Medicine 09/20/16 documented as of this encounter
--- OUTSIDE RECORDS SUMMARY | 2023-02-20 21:39 | External Medical Summary | Summary of Care ---
Author Name Unknown Organization [place] [address] Care Team Providers Care Health Safety Manager Name Role Phone Armani Hough MD Primary Care Provider [phone] Reason for Referral * Evaluate & Treat - Unlimited Visits (Within 10 days (routine)) - Pending Review Specialty Diagnoses / Procedures Referred By Mame mckeon Referred To Contact Physical Therapy / Physical Medicine And Rehab Diagnoses Benign paroxysmal vertigo, unspecified laterality Lynn Hoover MD [address] [facility] [place] [address] Referral ID Status Reason Start Date Expiration Date Visits Requested Visits Authorized [id number] Pending Review Specialty Services Required 01/31/[phone] Question Answer Referral Priority Within 10 days (routine) Comments Dizziness, poss bppv, Ella Reason for Visit * Reason Onset Date Comments Advice 01/31/2022 Encounter Details Date Type Department Care Team Description 01/31/2022 Telephone Neurology [facility] Valent[place] [address] [place] [address] Lynn Hoover MD [address] [place] [address] Advice Allergies No known active allergiesdocumented as of this encounter (statuses as of 01/31/2022) Medications Medication Sig Dispensed Refills Start Date [...] as of this encounter (statuses as of 01/31/2022) Active Problems Problem Noted Date Hx of [...] as of this encounter (statuses as of 01/31/2022) Resolved Problems Problem Noted Date Resolved Date [...] Lipid Taxonomy. Other chronic sinusitis 10/17/19 18 Bus Inspector's cramp 03/28/2019 documented as of this encounter (statuses as of 01/31/2022) Immunizations Name Administration Dates Next Due COVID-19 [...] * Telephone Encounter - RUTHY Morgan - 01/31/2022 3:36 PM EDT Sent myg * Telephone Encounter - RUTHY Mitchell - 01/31/2022 10:47 AM EDT Pt called stated was suppose to get set up with physical therapy but when called just now they informed him they haven't heard anything from provider and also changed fax number. Please call pt to advise RUTHY Mitchell 01/31/2022 10:48 AM documented in this encounter Plan of Treatment Upcoming Encounters Date Type Specialty Care Team Description 03/23/2022 Office Visit Dermatology Delilah Lynn PA-C [address] [place] [address] [place] [address] 01/23/2023 Office Visit Neurology Lynn Hoover MD [address] [facility] [place] [address] Scheduled Procedures Name Priority Associated Diagnoses Date/Ti me COLONOSCOPY FLEXIBLE PROXIMAL DIAGNOSTIC Recall History of colon polyps Scheduled Referrals Name Type Priority Associated Diagnoses Orde r Schedule PHYSICAL THERAPY REFERRAL OP Referral Within 10 days (routine) Benign paroxysmal vertigo, unspecified laterality Ordered: 01/31/2022 Health Maintenance Due Date Last Done Comments COVID-19 Vaccine (3 - Moderna risk series) 09/07/2020 08/10/2020, 07/13/2020 Depression Screening, Annual for Pts 12 and Over 12/08/2020 12/09/2019 DTaP,Tdap,and Td Vaccines (2 - Td or Tdap) 12/12/2021 12/13/2011, 07/06/2006 Alb / Creat Ratio 06/28/2022 06/28/2021 GFR - Renal Function 01/21/2023 01/21/2022, 12/09/2020, 09/14/2020, Additional history exists COLONOSCOPY-EVERY 3 YRS AGES 18-100 02/11/2023 02/12/2020, 02/12/2020, 06/03/2016, Additional history exists Diabetes Screening 01/21/2025 01/21/2022, 0 12/09/2020, 09/14/2020, Additional history exists Lipid Panel 06/28/2026 06/28/2021, [...] Visit Diagnoses Diagnosis Benign paroxysmal vertigo, unspecified laterality- Primary documented in this encounter Advance Directives Documents on File Type Date Recorded Patient Retail Mortgage Banker Expl anation Advanced Directive Advanced Directive Advanced [...] Advanced Directive 06/03/2016 8:20 AM Care Teams Health Safety Manager Relationship Specialty Start Date End Date Armani Hough MD PCP - General Family Medicine 09/20/16 documented as of this encounter
--- OUTSIDE RECORDS SUMMARY | 2023-02-20 21:39 | External Medical Summary | Summary of Care ---
Author Name Unknown Organization [place] [address] Care Team Providers Care Manager Recovery Name Role Phone Armani Hough MD Primary Care Provider Reason for Visit * Reason Onset Date Comments Medication Refill 02/06/2022 Encounter Details Date Type Department Care Team Description 02/06/2022 Refill Family Medicine [address] [address] Amrani Hough MD [address] [place], [place] [address] [address] Hyperlipidemia LDL goal <130 Allergies No known active allergiesdocumented as of this encounter (statuses as of 02/07/2022) Medications Medication Sig Dispensed Refills Start Date [...] as of this encounter (statuses as of 02/07/2022) Active Problems Problem Noted Date Hx of [...] as of this encounter (statuses as of 02/07/2022) Resolved Problems Problem Noted Date Resolved Date [...] Lipid Taxonomy. Other chronic sinusitis 10/17/19 18 Technical Translator's cramp 03/28/2019 documented as of this encounter (statuses as of 02/07/2022) Immunizations Name Administration Dates Next Due COVID-19 [...] encounter Miscellaneous Notes * Telephone Encounter - Della Gallo LPN - 02/07/2022 1:21 PM EDT Refused Prescriptions: Disp Refills Atorvastatin Calcium 40 MG Oral Tablet (Li*90 Tab*1 Sig: TAKE 1TABLET BY MOUTH EVERYDAY AT BEDTIMERefused By: MARTA PEREZ for Refusal: Duplicate RequestReason for Refusal Comment: sent * Telephone Encounter - Della Gallo LPN - 02/07/2022 1:19 PM EDT Too soon Pt given 90 tabs with 1 refill on 12/17/21 * Telephone Encounter - Marta Perez RN - 02/07/2022 9:50 AM EDT Refused Prescriptions: Disp Refills Atorvastatin Calcium 40 MG Oral Tablet (Li*90 Tab*1 Sig: TAKE 1TABLET BY MOUTH EVERYDAY AT BEDTIMERefused By: MARTA PEREZ for Refusal: Duplicate RequestReason for Refusal Comment: sent * Telephone Encounter - Marta Perez RN - 02/07/2022 9:49 AM EDT Pending Prescriptions: Disp Refills Atorvastatin Calcium 40 MG Oral Tablet (L*90 Tab*1 Sig: TAKE 1 TABLET BY MOUTH EVERYDAY AT BEDTIME Last Visit: 06/28/2021 (in office), Visit date not found (telemedicine) Next Visit: Visit date not found Last date the medication was ordered: Patient Active Problem List Diagnosis Code Primary [...] N18.2 Hx of nonmelanoma skin cancer Z85.828 Labs: Lab Results Component Value Date/Time CREATININE - [facility] 1.0 01/21/2022 09:28 AM CREATININE - [facility] 1.1 05/20/2015 10:03 AM CREATININE, RANDOM URINE - [facility] 95 06/28/2021 11:47 AM CREATININE-OUTSIDE LAB 1.1 09/14/2020 12:00 AM Lab Results Component Value Date/Time POTASSIUM - [facility] 4.6 01/21/2022 09:28 AM POTASSIUM - [facility] 4.4 05/20/2015 10:03 AM POTASSIUM-OUTSIDE LAB 5.3 (A) 09/14/2020 12:00 AM Lab Results Component Value Date/Time TSH - [facility] 1.87 01/21/2022 09:28 AM TSH - [facility] 1.90 07/14/2006 09:11 AM Lab Results Component Value Date/Time LDL (CALCULATED)-OUTSIDE LAB 117 (A) 09/14/2020 12:00 AM LDL (CALCULATED)-OUTSIDE LAB 109 (A) 01/06/2020 12:00 AM LDL CHOLESTEROL (CALCULATED) - [facility] 101 06/28/2021 09:08 AM LDL CHOLESTEROL (CALCULATED) - [facility] 114 12/13/2011 08:15 AM LDL CHOLESTEROL (CALCULATED) - [facility] 121 (H) 09/01/2006 08:49 AM LDL CHOLESTEROL (DIRECT MEASURE) - [facility] NOT APPLICABLE 12/13/2011 08:15 AM LDL CHOLESTEROL-OUTSIDE LAB 106 (A) 09/10/2013 12:00 AM LDL CHOLESTEROL-OUTSIDE LAB 118 (A) 03/21/2013 12:00 AM Lab Results Component Value Date/Time ALT - [facility] 22 12/09/2020 12:42 PM ALT - [facility] 22 05/20/2015 10:03 AM ALT-OUTSIDE LAB 33 09/08/2016 12:00 AM Hemoglobin AIC Results: No results found for: HEMOGLOBIN A1C documented in this encounter Plan of Treatment Upcoming Encounters Date Type Specialty Care Team Description 03/23/2022 Office Visit Dermatology Delilah Lynn PA-C [address] [place] [address] [place] [address] 01/23/2023 Office Visit Neurology Lynn Hoover MD [address] [place], [place] [address] [address] Scheduled Procedures Name Priority Associated Diagnoses Date/Ti [...] and unspecified hyperlipidemia documented in this encounter Advance Directives Documents on File Type Date Recorded Patient Institutional Custodian Expl anation Advanced Directive Advanced Directive Advanced [...] Advanced Directive 06/03/2016 8:20 AM Care Teams Manager Recovery Relationship Specialty Start Date End Date Armani Hough MD PCP - General Family Medicine 09/20/16 documented as of this encounter
--- OUTSIDE RECORDS SUMMARY | 2023-02-20 21:39 | External Medical Summary | Summary of Care ---
Author Name Unknown Organization [place] [address] Care Team Providers Care Breaker Hand Name Role Phone Armani Hough MD Primary Care Provider [phone] Reason for Referral * Evaluate & Treat - Unlimited Visits (Within 10 days (routine)) - Pending Review Specialty Diagnoses / Procedures Referred By Mame mckeon Referred To Contact Physical Therapy / Physical Medicine And Rehab Diagnoses Benign paroxysmal vertigo, unspecified laterality Lynn Hoover MD [address] [place] [address] Referral ID Status Reason Start Date Expiration Date Visits Requested Visits Authorized [id number] Pending Review Specialty Services Required 01/31/[phone] Question Answer Referral Priority Within 10 days (routine) Comments Dizziness, poss bppv, Ella Reason for Visit * Reason Onset Date Comments Advice 01/31/2022 Encounter Details Date Type Department Care Team Description 01/31/2022 Telephone Neurology State Aleks Valentin [address] [place] [address] Lynn Hoover MD [address] [place] [address] Advice Allergies No known active allergiesdocumented as [...] Lipid Taxonomy. Other chronic sinusitis 10/17/19 18 Window Tinter's cramp 03/28/2019 documented as of this encounter [...] Miscellaneous Notes * Telephone Encounter - RUTHY Mitchell - [...] 03/23/2022 Office Visit Dermatology Delilah Lynn PA-C [address] [place] [address] [place] [phone] 01/23/2023 Office Visit Neurology Lynn Hoover MD [address] [place] [phone] Scheduled Procedures Name Priority Associated Diagnoses Date/Ti [...] Documents on File Type Date Recorded Patient Line Fixer Expl anation Advanced Directive Advanced Directive Advanced [...] Advanced Directive 06/03/2016 8:20 AM Care Teams Breaker Hand Relationship Specialty Start Date End Date Armani Hough MD PCP - General Family Medicine 09/20/16 documented as of this encounter
--- OUTSIDE RECORDS SUMMARY | 2023-02-20 21:39 | External Medical Summary | Summary of Care ---
Author Name Unknown Organization [place] [address] Care Team Providers Care Clerical Grader Name Role Phone Armnai Hough MD Primary Care Provider + [phone] Reason for Referral * Evaluate & Treat - Unlimited Visits (Within 30 days (routine)) - Pending Review Specialty Diagnoses / Procedures Referred By Contbrian t Referred To Contact Physical Therapy / Physical Medicine And Rehab Diagnoses Benign paroxysmal vertigo, unspecified laterality Lynn Hoover MD [address] [facility] [place] [address] Referral ID Status Reason Start Date Expiration Date Visits Requested Visits Authorized [id number] Pending Review Specialty Services Required 01/21/[phone] Question Answer Referral Priority Within 30 days (routine) Comments Pt loses balance with eyes closed. Also vertigo with tipping head backward. I was not able to provoke vertigo. Pt does not appear to have a neuropathy Reason for Visit * Reason Onset Date Comments Return Neuro Medication Administration 01/21/2022 Flu an d/or Pneumo Inj Encounter Details Date Type Department Care Team Description 01/21/2022 Office Visit Neurology State Aleks Valentin [address] [place] [address] Lynn Hoover MD [address] [facility] [place] [address] Classroom Monitor's cramp*; Essential tremor; Benign paroxysmal vertigo, unspecified laterality; Need for prophylactic vaccination and inoculation against influenza Allergies No known active allergiesdocumented as of this encounter (statuses as of 01/21/2022) Medications Medication Sig Dispensed Refills Start Date [...] as of this encounter (statuses as of 01/21/2022) Active Problems Problem Noted Date Hx of [...] as of this encounter (statuses as of 01/21/2022) Resolved Problems Problem Noted Date Resolved Date [...] Lipid Taxonomy. Other chronic sinusitis 10/17/19 18 Classroom Monitor's cramp 03/28/2019 documented as of this encounter (statuses as of 01/21/2022) Immunizations Name Administration Dates Next Due COVID-19 [...] Sign Reading Time Taken Comments Blood Pressure 140/80 01/21/2022 8:42 AM EDT Pulse 65 01/21/2022 8:42 AM EDT Temperature 35.7 C (96.2 F) 01/21/2022 8:42 AM ED T Respiratory Rate 20 01/21/2022 8:42 AM EDT Oxygen Saturation - - Inhaled Oxygen Concentration - - Weight 84.6 kg (186 lb 6.4 oz) 01/21/2022 8:42 A M EDT Height - - Body Mass Index 27.53 12/23/2020 6:00 PM EDT documented in this [...] Yes 05/26/2015 documented as of this encounter Patient Instructions * Patient Instructions* Lynn Hoover MD - 01/21/2022 9:11 AM EDT Let me know if PT doesn't help with the instability. We would perform additional testing. ~~PATIENT INSTRUCTIONS FOR FLU SHOT~~ Possible side effects of influenza vaccine, (flu shot), are usually mild and include: 1. Soreness or redness at injection site 2. Low grade fever 3. Body aches You may use Tylenol/Acetaminophen as needed for these symptoms. LET YOUR DOCTOR KNOW IMMEDIATELY IF YOU HAVE DIFFICULTY BREATHING OR SWALLOWING, EXPERIENCE ITCHINGOF FEET OR HANDS, HAVE SWELLING OF EYES, FACE OR INSIDE OF NOSE. documented in this encounter Progress Notes * Lynn Hoover MD - 01/21/2022 9:18 AM EDT CLINIC NOTES Neurology [address] [facility] [address] Cuong Li : 1955 NEUROLOGY OUTPATIENT NOTE 01/21/2022 HISTORY: The patient is referred for consultation by Dr. Lan, who will be receiving a copy of this note. Patient comes today in of essential tremor and idiopathic left ticket writer's dystonia. He has switched handedness to right. Discussed Botox any feel since he is already made a transition to writing with his right hand that he is not interested. He takes baclofen PRN for tremor usually taking it if he has to do some significant writing. There has been no change in his medical surgical social or family history. He has noted for an unknown period of time but apparently quite some time that if he closes his eyes in the shower he will have a sense of falling. He does also notice if he is standing up and tips his head backwards he may briefly feel off balance. He does not have other neurologic symptoms accompanying this there are no otologic symptoms. There is some chronic hearing loss. He denies any numbness in his feet. Medications were switched and it made no difference. 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 Two children in good health. 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 1 twice daily 0 traZODone (DESYREL) 100 MG Tablet TAKE 1/2 TABLET DAILY AT BEDTIME (Patient taking differently:One at bedtime ) 90 Tab 1 Fluocinonide 0.05 % External Cream Apply to rash on the abdomen twice daily as needed for flares 30 g 0 Baclofen 10 MG Oral Tablet (Lioresal) TAKE 2 TABLETS BY MOUTH IN THE MORNING AND 1 TABLET IN THE EVENING 270 Tab 1 busPIRone HCl 15 MG Oral Tablet (Buspar) Take 15 Tablets by mouth 3 times a day. 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 60 g 2 Metoprolol Tartrate 25 MG Oral Tablet (Lopressor) one pill twice a day 180 Tablet 1 Omeprazole 20 MG Oral Capsule Delayed Release (PriLOSEC) Take by mouth 1 Capsule in the morning. 90 Capsule 1 Desonide 0.05 % External Cream Apply to pink patches on the face twice daily as needed for flares of psoriasis 60 g 1 Hydrocortisone 2.5 % External Ointment Apply to rash on the face twice daily x 3-4 days, then 2-3 x's per week. 15 g 1 Atorvastatin Calcium 40 MG Oral Tablet (Lipitor) TAKE 1 TABLET BY MOUTH EVERYDAY AT BEDTIME 90 Tablet 1 No current facility-administered medications for this visit. Review of patient's allergies indicates: No Known Allergies REVIEW OF SYSTEMS: As above PHYSICAL EXAM: BP 140/80 | Pulse 65 | Temp 35.7 C (96.2 F) | Resp 20 | Wt 84.6 kg (186 lb 6.4 oz) | BMI 27.53 kg/m | BSA 2.03 m The patient is awake and alert speech and language are normal and affect is appropriate. No carotidbruits no heart murmurs there is normal extraocular motility without nystagmus. There is full strength in the upper and lowers ankle jerks are preserved toes are downgoing there is no clonus. Some moderate moderate intention tremor bilaterally there is no dysdiadochokinesia [id number] is normal gait and tandem are appropriate for age Romberg is positive provocative head maneuvers are negative. Vibration sense is noted at the toes. There is no distal sensory loss to temperature Tandem promptly develops dystonic movement of his left hand limiting handwriting. Handwriting with his non dominant hand is much improved IMPRESSION: Essential tremor doing well with PRN baclofen. Classroom Monitor's dystonia patient patient handedness. Patient reports it instability with eyes closed as well as vertigo with head tipping. Exam is noncontributory plan physical therapy for Ella maneuver. Labs for evaluation for neuropathy or posteriorcolumn dysfunction. Clinically he does not appear to have a neuropathy. He will reach out to me if physical therapy is not effective and we will consider further workup. Return yearly. A total of 30 minutes spent with the patient more than 50% in counseling. Lynn Hoover MD 01/21/2022 9:18 AM * Raquel Flores LPN - 01/21/2022 9:16 AM EDT PRE - ADMINISTRATION DOCUMENTATION Are you experiencing any cold symptoms or fever? No Have you had Guillain-Naples Syndrome (an illness that causes paralysis) within the last 6 weeks? No Have you had the flu shot in the past? YES Have you ever had a reaction to the flu shot? No Raquel Flores LPN, 01/21/2022 9:16 AM Immunization Administration Documentation Time Out Procedure Performed: Yes Patient Identified (Ask Name/Date of ): Yes Does the patient have a fever greater than 101 degrees today? No Patient allergic to latex? No VFC Stock: No Immunization(s) verified: Yes, Immunization Name: Flu, VIS Sheet(s) given: Yes Verified Side and Site: Yes Verified Shot(s) with Parent(s)/Patient: Yes documented in this encounter Nursing Notes * Raquel Flores LPN - 01/21/2022 8:40 AM EDT Doing about the same documented in this encounter Plan of Treatment Upcoming Encounters Date Type Specialty Care Team Description 03/23/2022 Office Visit Dermatology Delilah Lynn PA-C [address] [place] [address] [place] [phone] 01/23/2023 Office Visit Neurology Lynn Hoover MD [address] [place] [address] [place] [id number] Pending Results Name Type Priority Associated Diagnoses Date /Time METHYLMALONIC ACID, SERUM Lab Routine Benign paroxysmal vertigo, unspecified laterality 01/21/2022 9:28 AM EDT FOLIC ACID Lab Routine Benign paroxysmal vertigo, unspecified laterality 01/21/2022 9:28 AM EDT RPR Lab Routine Benign paroxysmal vertigo, unspecified laterality 01/21/2022 9:28 AM EDT TSH Lab Routine Benign paroxysmal vertigo, unspecified laterality 01/21/2022 9:28 AM EDT SERUM IMMUNOFIXATION Lab Routine Benign paroxysmal vertigo, unspecified laterality 01/21/2022 9:28 AM EDT BASIC METABOLIC PANEL Lab Routine Benign paroxysmal vertigo, unspecified laterality 01/21/2022 9:28 AM EDT Scheduled Procedures Name Priority Associated Diagnoses Date/Ti me COLONOSCOPY FLEXIBLE PROXIMAL DIAGNOSTIC Recall History of colon polyps Scheduled Referrals Name Type Priority Associated Diagnoses Orde r Schedule PHYSICAL THERAPY REFERRAL OP Referral Within 30 days (routine) Benign paroxysmal vertigo, unspecified laterality Ordered: 01/21/2022 Health Maintenance Due Date Last Done Comments COVID-19 Vaccine (3 - Moderna risk series) 09/07/2020 08/10/2020, 07/13/2020 Depression Screening, Annual for Pts 12 and Over 12/08/2020 12/09/2019 GFR - Renal Function 12/09/2021 12/09/2020, 09/14/2020, 01/06/2020, Additional history exists DTaP,Tdap,and Td Vaccines (2 - Td or Tdap) 12/12/2021 12/13/2011, 07/06/2006 Alb / Creat Ratio 06/28/2022 06/28/2021 COLONOSCOPY-EVERY 3 YRS AGES 18-100 02/11/2023 02/12/2020, 02/12/2020, 06/03/2016, Additional history exists Diabetes Screening 12/10/2023 12/09/2020, 0 09/14/2020, 01/06/2020, Additional history exists Lipid Panel 06/28/2026 06/28/2021, [...] as of this encounter Visit Diagnoses Diagnosis Classroom Monitor's cramp- Primary Other somatoform disorders Essential tremor Essential and other specified forms of tremor Benign paroxysmal vertigo, unspecified laterality Need for prophylactic vaccination and inoculation against influenza documented in this encounter Advance Directives Documents on File Type Date Recorded Patient Scene And Lighting Design Lecturer Expl anation Advanced Directive Advanced Directive Advanced [...] Advanced Directive 06/03/2016 8:20 AM Care Teams Clerical Grader Relationship Specialty Start Date End Date Armani Hough MD PCP - General Family Medicine 09/20/16 documented as of this encounter"
--- OUTSIDE RECORDS SUMMARY | 2023-02-20 21:39 | External Medical Summary | Summary of Care ---
Author Name Unknown Organization [place] [address] Care Team Providers Care Environmental Law Professor Name Role Phone Armani Hough MD Primary Care Provider [phone] Encounter Details Date Type Department Care Team Description 01/22/2022 Scan Encounter Family Medicine [address] [phone] Armani Hough MD [address] [place] [address] <No scans attached> Allergies No known [...] Lipid Taxonomy. Other chronic sinusitis 10/17/19 18 Differential Tester's cramp 03/28/2019 documented as of this encounter [...] 03/23/2022 Office Visit Dermatology Delilah Lynn PA-C [address] [place] [address] [place] [phone] 01/23/2023 Office Visit Neurology Lynn Hoover MD [address] [place], [place] [address] Scheduled Procedures Name Priority Associated Diagnoses Date/Ti [...] Documents on File Type Date Recorded Patient Currency Exchange Specialist Expl anation Advanced Directive Advanced Directive Advanced [...] Advanced Directive 06/03/2016 8:20 AM Care Teams Environmental Law Professor Relationship Specialty Start Date End Date Armani Hough MD PCP - General Family Medicine 09/20/16 documented as of this encounter
--- OUTSIDE RECORDS SUMMARY | 2023-02-20 21:39 | External Medical Summary | Summary of Care ---
Author Name Unknown Organization [place] [address] Care Team Providers Care Concrete Sculptor Name Role Phone Armani Hough MD Primary Care Provider Encounter Details Date Type Department Care Team Description 02/19/2022 Orders Only Family Medicine [address] [phone] Armani Hough MD [address] [place] [address] Allergies No known active allergiesdocumented as of [...] Taxonomy. Other chronic sinusitis 10/17/19 18 Industrial Truck Mechanic's cramp 03/28/2019 documented as of this [...] 03/23/2022 Office Visit Dermatology Delilah Lynn PA-C [address] [place] [address] T[place] [phone] 01/23/2023 Office Visit Neurology Lynn Hoover MD [address] [place] [address] [place] [address] Scheduled Procedures Name Priority Associated Diagnoses Date/Ti [...] Procedure Name Priority Date/Time Associated Diagnosis Comments CHEMISTRY-OUTSIDE Routine 01/23/2022 CT CHEST WO CONTRAST Routine 01/22/2022 documented in this encounter Results * (ABNORMAL) CHEMISTRY-OUTSIDE (01/23/2022) CREATININE-OUTSIDE LAB 0.77(A) 0.8 - 1.5 MG/DL OUTSIDE LAB (SEE SCANNED REPORT) EGFR-OUTSIDE LAB 98 >59 ML/MIN OUTSIDE LAB (SEE SCANNED REPORT) POTASSIUM-OUTSIDE LAB 3.9 3.6 - 5.0 MMOL/L OUTSIDE LAB (SEE SCANNED REPORT) GLUCOSE-OUTSIDE LAB 91 70 - 99 MG/DL OUTSIDE LAB (SEE SCANNED REPORT) HOURS FASTING OUTSIDE LAB (S EE SCANNED REPORT) TRIGLYCERIDES-OUTSIDE LAB OUTSIDE LAB (SEE SCANNED REPORT) CHOLESTEROL-OUTSIDE LAB OUTSIDE LAB (SEE SCANNED REPORT) HDL-OUTSIDE LAB OUTSIDE LAB (SEE SCANNED REPORT) CHOL/HDL RATIO-OUTSIDE LAB OUTSIDE LAB (SEE SCANNED REPORT) LDL (CALCULATED)-OUTSIDE LAB OUTSIDE LAB (SEE SCANNED REPORT) LDL (DIRECT MEASURE)-OUTSIDE LAB OUTSIDE LAB (SEE SCANNED REPORT) HEMOGLOBIN, L8I-WSOACRD LAB OUTSIDE LAB (SEE SCANNED REPORT) PHOSPHORUS-OUTSIDE LAB OUTSIDE LAB (SEE SCANNED REPORT) PTH-OUTSIDE LAB OUTSIDE LAB (SEE SCANNED REPORT) MICROALBUMIN RATIO-OUTSIDE LAB OUTSIDE LAB (SEE SCANNED REPORT) PROTEIN, UA-OUTSIDE LAB OUTSIDE LAB (SEE SCANNED REPORT) HEMOGLOBIN-OUTSIDE LAB 13.7(A) 14.0 - 16.8 G/DL OUTSIDE LAB (SEE SCANNED REPORT) CHEMISTRY COMMENT-OUTSIDE LAB Comment:SEE SCAN - INPT LABS: CBCD, BMP OUTSIDE LAB (SEE SCANNED REPORT) Specimen Narrative Performing Organization Address [facility] Co de Phone Number OUTSIDE LAB (SEE SCANNED REPORT) * CT CHEST WO CONTRAST (01/22/2022) Anatomical Region Laterality Modality Chest, Body, Cardio Other Specimen Narrative Performing Organization Address [facility] Co de Phone Number OUTSIDE LAB (SEE SCANNED REPORT) documented in this encounter Advance Directives Documents on File Type Date Recorded Patient Plan Rep Expl anation Advanced Directive Advanced Directive Advanced [...] Advanced Directive 06/03/2016 8:20 AM Care Teams Concrete Sculptor Relationship Specialty Start Date End Date Armani Hough MD PCP - General Family Medicine 09/20/16 documented as of this encounter
--- OUTSIDE RECORDS SUMMARY | 2023-02-20 21:39 | External Medical Summary | Summary of Care ---
Author Name [place] [address] Care Team Providers Care Internal Medicine Doctor Name Role Phone Unavailable Primary Care Provider Unavailabl e Reason for Visit * Reason Comments Retrieval * Auth/Cert Specialty Diagnoses / Procedures Referred By Mame t Referred To Contact Referral ID Status Reason Start Date Expiration Date Visits Re quested Visits Authorized [id number] [phone] Encounter Details Date Type Department Care Team Description 01/22/2022 Documentation [facility] [place] [address] [place] [address] 2, [facility] [address] [place] [address] Fall (on) (from) unspecified stairs and steps, initial encounter* Social History Tobacco Use Types Packs/Day Years Used Date Never Assessed Sex Assigned at Date Recorded Not on file documented as of this encounter Progress Notes * Sully Salvador RN - 01/22/2022 8:50 PM EDT MEDICARE AMBULANCE INFORMATION SHEET Patient Admitted as an Inpatient: unknown Certifying Physician/Ordering Service:[facility] ED Physician - Gil Pham D[facility]. [facility] [address] [facility] [place] [address] Point of Fender Finisher (zip code required): [place] [address] Destination (Specify Name/Address): [place] [address] Patient transported to nearest facility (capable of mgmt for Pt's condition): YES Total number of Loaded Miles: 32.0 miles Mode of Transport: Air Completed by: Sully Salvador RN documented in this encounter Plan of Treatment Health Maintenance Due Date Last Done Comments COVID-19 Vaccine (#1) 11/05/1870 Depression Screening, Annual for Pts 12 and Over 05/08/1882 DTaP,Tdap,and Td Vaccines (1 - Tdap) 05/08/1889 Zoster Vaccines (1 of 2) 05/08/1920 Pneumococcal Vaccine: 65+ Ye ars (1 - PCV) 05/08/1935 Influenza Vaccine (FLU shot) (#1) 2022 GARDASIL-HPV IMMUNIZATION SERIES Aged Out No longer eligible based on patient's age to complete this topic Hepatitis B Aged Out No longer eligi ble based on patient's age to complete this topic MENINGOCOCCAL (MENACTRA/MENVEO) Aged Out No longer eligible based on patient's age to complete this topic documented as of this encounter Implants Not on filedocumented as of this encounter Visit Diagnoses Diagnosis Fall (on) (from) unspecified stairs and steps, initial encounter- Primary documented in this encounter Advance Directives Documents on File Type Date Recorded Patient Quality Improvement Coordinator (Rn) Expl anation Advanced Directive
--- OUTSIDE RECORDS SUMMARY | 2023-02-20 21:39 | External Medical Summary | Summary of Care ---
Author Name Unknown Organization [place] [address] Care Team Providers Care Cavalry Scout Name Role Phone Armani Hough MD Primary Care Provider [phone] Encounter Details Date Type Department Care Team Description 01/22/2022 Scan Encounter Family Medicine [address] [phone] Armani Hough MD [address] [place] [phone] <No scans attached> Allergies No known [...] Lipid Taxonomy. Other chronic sinusitis 10/17/19 18 Vessel Manager's cramp 03/28/2019 documented as of this [...] 03/23/2022 Office Visit Dermatology Delilah Lynn PA-C [address] [place] [address] [place] [phone] 01/23/2023 Office Visit Neurology Lynn Hoover MD [address] [place], [place] [address] [address] Scheduled Procedures Name Priority Associated Diagnoses Date/Ti [...] Documents on File Type Date Recorded Patient Forensic Structural Engineer Expl anation Advanced Directive Advanced Directive Advanced [...] Advanced Directive 06/03/2016 8:20 AM Care Teams Cavalry Scout Relationship Specialty Start Date End Date Armani Hough MD PCP - General Family Medicine 09/20/16 documented as of this encounter
--- OUTSIDE RECORDS SUMMARY | 2023-02-20 21:39 | External Medical Summary | Summary of Care ---
Author Name [place] [address] Care Team Providers Care Tunnel Kiln Operator Name Role Phone Unavailable Primary Care Provider Unavailabl e Reason for Visit * Reason Comments Retrieval * Auth/Cert Specialty Diagnoses / Procedures Referred By Mame t Referred To Contact Referral ID Status Reason Start Date Expiration Date Visits Re quested Visits Authorized [id number] [phone] Encounter Details Date Type Department Care Team Description 01/22/2022 Documentation [facility] [place] [address] [place] [address] 2, [facility] [address] [place] [address] Fall (on) (from) unspecified stairs and steps, initial encounter* Social History Tobacco Use Types Packs/Day Years Used Date Never Assessed Sex Assigned at Date Recorded Not on file documented as of this encounter Progress Notes * Sully Salvador RN - 01/22/2022 8:50 PM EDT MEDICARE AMBULANCE INFORMATION SHEET Patient Admitted as an Inpatient: unknown Certifying Physician/Ordering Service:[facility] ED Physician - Gil Pham D.O. [facility] [address] [facility] [place] [address] Point of Pan Operator (zip code required): [place] [address] Destination (Specify Name/Address): [address] [address] Patient transported to nearest facility (capable of [...] Documents on File Type Date Recorded Patient Furniture Fabricator Expl anation Advanced Directive
--- OUTSIDE RECORDS SUMMARY | 2023-02-20 21:39 | External Medical Summary | Summary of Care ---
Author Name Unknown Organization [place] [address] Care Team Providers Care Beauty Operator Apprentice Name Role Phone Armani Hough MD Primary Care Provider Encounter Details Date Type Department Care Team Description 06/24/2022 Orders Only Neurology [facility] [place] [address] [facility] [place] [address] Lynn Hoover MD [address] [place] [address] Allergies No known active allergiesdocumented as of this encounter (statuses as of 06/24/2022) Medications Medication Sig Dispensed Refills Start Date [...] hour prior to MRI. Must have a sanitation truck driver 1 Tablet 0 06/24/2022 Active documented as of this encounter (statuses as of 06/24/2022) Active Problems Problem Noted Date Hx of [...] as of this encounter (statuses as of 06/24/2022) Resolved Problems Problem Noted Date Resolved Date [...] Lipid Taxonomy. Other chronic sinusitis 10/17/19 18 Wireless Network Engineer's cramp 03/28/2019 documented as of this encounter (statuses as of 06/24/2022) Immunizations Name Administration Dates Next Due COVID-19 [...] Office Visit Neurology Lynn Hoover MD [address] [place] [address] Scheduled Procedures Name Priority Associated Diagnoses Date/Ti [...] Additional history exists Lipid Panel 06/28/2026 06/28/2021, 05/, 01/06/2020, Additional history exists Pneumococcal Vaccine: 65+ [...] filedocumented as of this encounter Care Teams Beauty Operator Apprentice Relationship Specialty Start Date End Date Armani Hough MD PCP - General Family Medicine 09/20/16 documented as of this encounter
--- OUTSIDE RECORDS SUMMARY | 2023-02-20 21:39 | External Medical Summary | Summary of Care ---
Author Name Unknown Organization [place] [address] Care Team Providers Care Front Office Assistant Name Role Phone Armani Hough MD Primary Care Provider + [phone] Reason for Visit * Reason Comments Outpatient Testing Encounter Details Date Type Department Care Team Description 01/21/[address] [facility] [address] [place] [address] [facility] [address] [place] [address] Arrived Allergies No known active allergiesdocumented as [...] Lipid Taxonomy. Other chronic sinusitis 10/17/19 18 Attending Ambulatory Care's cramp 03/28/2019 documented as of this encounter [...] 03/23/2022 Office Visit Dermatology Delilah Lynn PA-C [address] [place] [address] [place] [address] 01/23/2023 Office Visit Neurology Lynn Hoover MD [address] [place] [address] [place] [address] Scheduled Procedures Name Priority Associated Diagnoses Date/Ti [...] Documents on File Type Date Recorded Patient Senior Packaging Engineer Expl anation Advanced Directive Advanced Directive [...] Advanced Directive 06/03/2016 8:20 AM Care Teams Front Office Assistant Relationship Specialty Start Date End Date Armani Hough MD PCP - General Family Medicine 09/20/16 documented as of this encounter
--- OUTSIDE RECORDS SUMMARY | 2023-02-20 21:39 | External Medical Summary | Summary of Care ---
Author Name Unknown Organization [place] [address] Care Team Providers Care Venetian Blind Mechanic Name Role Phone Armani Hough MD Primary Care Provider [phone] Reason for Visit * Reason Onset Date Comments Medication Refill 02/06/2022 Encounter Details Date Type Department Care Team Description 02/06/2022 Refill Family Medicine [address] [phone] Armani Hough MD [address] [place], [place] [address] [address] Hyperlipidemia LDL goal <130 Allergies No known [...] Taxonomy. Other chronic sinusitis 10/17/19 18 Land Acquisition Manager's cramp 03/28/2019 documented as of this [...] MOUTH EVERYDAY AT BEDTIMERefused By: MARTA PEREZ MResobeida for Refusal: Duplicate RequestReason for Refusal Comment: [...] 03/23/2022 Office Visit Dermatology Delilah Lynn PA-C [address] [place] [address] [place] [address] 01/23/2023 Office Visit Neurology Lynn Hoover MD [address] [facility] [place] [address] Scheduled Procedures Name Priority Associated Diagnoses Date/Ti [...] Documents on File Type Date Recorded Patient Rn Or Lpn Expl anation Advanced Directive Advanced Directive Advanced [...] Advanced Directive 06/03/2016 8:20 AM Care Teams Venetian Blind Mechanic Relationship Specialty Start Date End Date Armani Hough MD PCP - General Family Medicine 09/20/16 documented as of this encounter
--- OUTSIDE RECORDS SUMMARY | 2023-02-20 21:40 | External Medical Summary | Summary of Care ---
Author Name Unknown Organization [place] [address] Care Team Providers Care License Registration Examiner Name Role Phone Armani Hough MD Primary Care Provider + [phone] Reason for Visit * Reason Onset Date Comments Medication Refill 11/09/2021 Encounter Details Date Type Department Care Team Description 11/09/2021 [place] [facility] [address] [place] [address] Ismael Lynn PA-C [address] [place] [address] Inverse psoriasis*; Other psoriasis Allergies No known active allergiesdocumented as of this encounter (statuses as of 11/09/2021) Medications Medication Sig Dispensed Refills Start Date [...] AT BEDTIME 90 Tab 1 04/17/2017 Active Fluocinonide 0.05 % External CreamIndications:A llergic contact [...] 08/07/2020 Active Tacrolimus 0.1 % External Ointment (Protopic)Indicati ons:Other psoriasis,Inverse psoriasis APPLY TO PSORIASIS ON THE GENITALS TWICE DAILY NEEDED FOR FLARES. 60 g 2 03/22/2021 Active Metoprolol Tartrate 25 MG Oral Tablet (Lopressor)Indicat ions:Primary hypertension one pill twice a day 180 Tablet 1 06/28/2021 Active Atorvastatin Calcium 40 MG Oral Tablet (Lipitor)Indicatio ns:Hyperlipidemia LDL goal <130 TAKE 1 TABLET BY MOUTH EVERYDAY AT BEDTIME 90 Tablet 1 06/28/2021 Active Omeprazole 20 MG Oral Capsule Delayed Release (PriLOSEC)Indicati ons:Gastroesophage al reflux disease with esophagitis without hemorrhage Take by mouth 1 Capsule in the morning. 90 Capsule 1 06/28/2021 Active Desonide 0.05 % External CreamIndications:O ther psoriasis,Inverse psoriasis Apply to pink patches on the face twice daily as needed for flares of psoriasis 15 g 3 11/09/2021 Active Desonide 0.05 % External CreamIndications:O ther psoriasis,Inverse psoriasis Apply to pink patches on the face twice daily as needed for flares of psoriasis 15 g 3 03/22/2021 2 Discontinue d(Refill) documented as of this encounter (statuses as of 11/09/2021) Active Problems Problem Noted Date Hx of [...] as of this encounter (statuses as of 11/09/2021) Resolved Problems Problem Noted Date Resolved Date [...] Lipid Taxonomy. Other chronic sinusitis 10/17/19 18 Metallurgy Teacher's cramp 03/28/2019 documented as of this encounter (statuses as of 11/09/2021) Immunizations Name Administration Dates Next Due COVID-19 mRNA, LNP-s, No Pre serve, 2-Dose Series (Moderna) 08/10/2020,07/13/2020 Pneumococcal Conjugate Vacc, 13 Valent (Prevnar) 09/20/2018,12/18/2012 Pneumococcal Polysaccharide PPV23 (Pneumovax) 02/27/2020,03/01/2019,09/18/2013,12/18 Seasonal Influenza Virus Vac cine, Unspecified Formulation 03/08/2018 Seasonal Influenza, Quadriva lent Hd (Fluzone Hd) 02/12/2021 Seasonal Influenza, Quadriva lent, No Preserve, 6 [...] Telephone Encounter - Ismael Lynn PA-C - 11/09/2021 12:23 PM EDT Signed Prescriptions: Disp Refills Desonide 0.05 % External Cream 15 g 3 Sig: Apply to pink patcheson the face twice daily as needed for flares of psoriasisAuthorizing Provider: ISMAEL LYNN A documented in this encounter Plan of Treatment Upcoming Encounters Date Type Specialty Care Team Description 01/21/2022 Office Visit Neurology Lynn Hoover MD [address] [place] [address] 03/23/2022 Office Visit Dermatology Ismael Lynn PA-C [address] [place] [address] Scheduled Procedures Name Priority Associated Diagnoses Date/Ti me COLONOSCOPY FLEXIBLE PROXIMAL DIAGNOSTIC Recall History of colon polyps Health Maintenance Due Date Last Done Comments COVID-19 Vaccine (3 - Moderna risk series) 09/07/2020 08/10/2020, 07/13/2020 Depression Screening, Annual for Pts 12 and Over 12/08/2020 12/09/2019 BASIC METABOLIC PANEL (BMP) FOR HTN YEARLY 12/09/2021 12/09/2020, 09/14/2020, 01/06/2020, Additional history exists DTaP,Tdap,and Td Vaccines (2 - Td or Tdap) 12/12/2021 12/13/2011, 07/06/2006 Influenza Vaccine (FLU shot) (#1) 2022 02/12/2021, 02/27/2020, 03/01/2019, Additional history exists COLONOSCOPY-EVERY 3 YRS AGES 18-100 02/11/2023 02/12/2020, 02/12/2020, 06/03/2016, Additional history exists DIABETES SCREEN EVERY 3 YRS-AGE 45 AND ABOVE 12/10/2023 12/09/2020, 09/14/2020, 01/06/2020, Additional history exists LIPID SCREEN EVERY 5 YRS-MEN AGE 35-75 06/28/2026 06/28/2021, 09/14/2020, 01/06/2020, Additional history exists Pneumococcal Vaccine: 65+ [...] as of this encounter Visit Diagnoses Diagnosis Inverse psoriasis- Primary Other psoriasis Other psoriasis documented in this encounter Advance Directives Documents on File Type Date Recorded Patient Punchboard Assembler Expl anation Advanced Directive Advanced Directive Advanced [...] Advanced Directive 06/03/2016 8:20 AM Care Teams License Registration Examiner Relationship Specialty Start Date End Date Armani Hough MD PCP - General Family Medicine 09/20/16 documented as of this encounter
--- OUTSIDE RECORDS SUMMARY | 2023-02-20 21:40 | External Medical Summary | Summary of Care ---
Author Name Unknown Organization [place] [address] Care Team Providers Care Blocking Machine Operator Name Role Phone Armani Hough MD Primary Care Provider + [phone] Reason for Visit * Reason Comments Outpatient Testing Encounter Details Date Type Department Care Team Description 06/28/2021 Laboratory Laboratory [address] [place] [phone] [place] [address] Hyperlipidemia LDL goal <130; CKD (chronic kidney disease), stage II; Primary hypertension Allergies No known active allergiesdocumented as of this encounter (statuses as of 06/28/2021) Medications Medication Sig Dispensed Refills Start Date End Date Status LISINOPRIL 40 MG PO TABSIndications:in am Take by mouth. Indications: in am 90 Tab 3 12/13/2011 Active VIAGRA 100 MG PO TABSIndications:Impo tence of organic origin one as needed 6 Tab 5 04/26/2013 Active Cholecalciferol (VITAMIN D) 2000 UNITS TabletIndications:at bedtime Take 2,000 Units by mouth daily. Indications: at bedtime 0 Active BuPROPion HCl ER, SR, 200 MG TB12 Take 200 mg by mouth 2 times a day. 1 twice daily 0 05/26/2016 Active traZODone (DESYREL) 100 MG TabletIndications:Pe rsistent insomnia TAKE 1/2 TABLET DAILY AT BEDTIME 90 Tab 1 04/17/2017 Active FLUoxetine HCl 20 MG Oral Capsule (PROzac) Take 1 Cap by mouth. 0 Active Fluocinonide 0.05 % External CreamIndications:All ergic contact dermatitis due to metals Apply to [...] 08/07/2020 Active Tacrolimus 0.1 % External Ointment (Protopic)Indication s:Other psoriasis,Inverse psoriasis APPLY TO PSORIASIS ON THE GENITALS TWICE DAILY NEEDED FOR FLARES. 60 g 2 03/22/2021 Active Desonide 0.05 % External CreamIndications:Oth er psoriasis,Inverse psoriasis Apply to pink patches on the face twice daily as needed for flares of psoriasis 15 g 3 03/22/2021 Active Metoprolol Tartrate 25 MG Oral Tablet (Lopressor)Indicatio ns:Primary hypertension one pill twice a day 180 Tablet 1 06/28/2021 Active Atorvastatin Calcium 40 MG Oral Tablet (Lipitor)Indications :Hyperlipidemia LDL goal <130 TAKE 1 TABLET BY MOUTH EVERYDAY AT BEDTIME 90 Tablet 1 06/28/2021 Active Omeprazole 20 MG Oral Capsule Delayed Release (PriLOSEC)Indication s:Gastroesophageal reflux disease with esophagitis without hemorrhage Take by mouth 1 Capsule in the morning. 90 Capsule 1 06/28/2021 Active documented as of this encounter (statuses as of 06/28/2021) Active Problems Problem Noted Date Hx of [...] as of this encounter (statuses as of 06/28/2021) Resolved Problems Problem Noted Date Resolved Date [...] Lipid Taxonomy. Other chronic sinusitis 10/17/19 18 Prison Teacher's cramp 03/28/2019 documented as of this encounter (statuses as of 06/28/2021) Immunizations Name Administration Dates Next Due COVID-19 [...] true 05/21/2019 Sex Assigned at Date Recorded Not on file Job Start Date Occupation Industry Not on [...] Encounters Date Type Specialty Care Team Description 09/27/2021 [facility] [address] [facility] [address] 01/21/2022 Office Visit Neurology Lynn Hoover MD [address] [place] [address] 03/23/2022 Office Visit Dermatology Delilah Lynn PA-C [address] [place] [address] Pending Results Name Type Priority Associated Diagnoses Date /Time LIPID PANEL WITH DIRECT LDL IF TG IS HIGH Lab Routine Hyperlipidemia LDL goal <130 06/28/2021 9:08 AM EST Scheduled Procedures Name Priority Associated Diagnoses Date/Ti or COLONOSCOPY FLEXIBLE PROXIMAL DIAGNOSTIC Recall History of colon polyps Health Maintenance Due Date Last Done Comments COVID-19 Vaccine (3 - Moderna risk 4-dose series) 09/07/2020 08/10/2020, 07/13/2020 Depression Screening, Annual [...] LIPID SCREEN EVERY 5 YRS-MEN AGE 35-75 09/14/2025 09/14/2020, 01/06/2020, 09/12/2018, Additional history exists Pneumococcal Vaccine: 65+ Years Completed 02/27/2020, 03/01/2019, 09/20/2018, Additional history exists Zoster Vaccines Completed 12/16/2020, 09/05, 03/30/2020 Influenza Vaccine (FLU shot) Completed 12/2020, 02/27/2020, 03/01/2019, Additional history exists GARDASIL-HPV IMMUNIZATION SERIES Aged Out No longer eligible based on patient's age to complete this topic MENINGOCOCCAL (MENACTRA/MENVEO) Aged Out No longer eligible based on patient's age to complete this topic documented as of this encounter Implants Not on filedocumented as of this encounter Visit Diagnoses Diagnosis Hyperlipidemia LDL goal <130 Other and unspecified hyperlipidemia CKD (chronic kidney disease), stage II Chronic kidney disease, Stage II (mild) Primary hypertension Unspecified essential hypertension documented in this encounter Advance Directives Documents on File Type Date Recorded Patient Caustic Room Operator Expl anation Advanced Directive Advanced Directive Advanced [...] Advanced Directive 06/03/2016 8:20 AM Care Teams Blocking Machine Operator Relationship Specialty Start Date End Date Armani Hough MD PCP - General Family Medicine 09/20/16 documented as of this encounter
--- OUTSIDE RECORDS SUMMARY | 2023-02-20 21:40 | External Medical Summary | Summary of Care ---
Author Name Unknown Organization [place] [address] Care Team Providers Care Red Cap Name Role Phone Armani Hough MD Primary Care Provider + [phone] Reason for Visit * Reason Comments Outpatient Testing Encounter Details Date Type Department Care Team Description 06/28/2021 Laboratory Laboratory [address] [place] [phone] [place] [address] Hyperlipidemia LDL goal <130; CKD (chronic kidney [...] Lipid Taxonomy. Other chronic sinusitis 10/17/19 18 Product Support Technician's cramp 03/28/2019 documented as of this [...] 09/27/2021 Office Visit Dermatology Delilah Lynn PA-C [address] [place] [facility] [place] [address] 01/21/2022 Office Visit Neurology Lynn Hoover MD [address] [place] [address] 03/23/2022 Office Visit Dermatology Delilah Lynn PA-C [address] [facility] [address] Pending Results Name Type Priority Associated Diagnoses Date /Time LIPID PANEL WITH DIRECT LDL IF TG IS HIGH Lab Routine Hyperlipidemia LDL goal <130 06/28/2021 9:08 AM EST ALBUMIN / CREATININE RATIO, URINE Lab Routine CKD (chronic kidney disease), stage II Primary hypertension 06/28/2021 11:47 AM EST Scheduled Procedures Name Priority Associated [...] Documents on File Type Date Recorded Patient Hazardous Waste Technician Expl anation Advanced Directive Advanced Directive Advanced [...] Advanced Directive 06/03/2016 8:20 AM Care Teams Red Cap Relationship Specialty Start Date End Date Armani Hough MD PCP - General Family Medicine 09/20/16 documented as of this encounter
--- OUTSIDE RECORDS SUMMARY | 2023-02-20 21:40 | External Medical Summary | Summary of Care ---
Author Name Unknown Organization [place] [address] Care Team Providers Care Trading Analyst Name Role Phone Santi Arreguin MD Primary Care Provider + [phone] Reason for Visit * Reason Comments Re-Check Encounter Details Date Type Department Care Team Description 09/27/2021 Office Visit Dermatology [address] [place] [address] Delilah Lynn PA-C [address] [place] [address] Plaque psoriasis*; Inverse psoriasis; Psoriasis of nail; Other psoriasis; Sebopsoriasis Allergies No known active allergiesdocumented as of this encounter (statuses as of 09/27/2021) Medications Medication Sig Dispensed Refills Start Date [...] 2 03/22/2021 Active Desonide 0.05 % External CreamIndications:O ther [...] the morning. 90 Capsule 1 06/28/2021 Active Cholecalciferol (VITAMIN D) 2000 UNITS TabletIndications: at bedtime Take 2,000 Units by mouth daily. Indications: at bedtime 0 2 Discontinued FLUoxetine HCl 20 MG Oral Capsule (PROzac) Take 1 Cap by mouth. 0 2 Discontinued documented as of this encounter (statuses as of 09/27/2021) Active Problems Problem Noted Date Hx of [...] as of this encounter (statuses as of 09/27/2021) Resolved Problems Problem Noted Date Resolved Date [...] Lipid Taxonomy. Other chronic sinusitis 10/17/19 18 Seals Engraver's cramp 03/28/2019 documented as of this encounter (statuses as of 09/27/2021) Immunizations Name Administration Dates Next Due COVID-19 [...] this encounter Patient Instructions * Patient Instructions* Delilah Lynn PA-C - 09/27/2021 8:50 AM EDT The side effects of chronic topical steroid use were discussed with patient and include but are notlimited to telangiectasia (broken blood vessels), striae (stretch vivas), atrophy (thin skin), purpura (bruising), allergic contact dermatitis, acneiform eruptions and medicine addiction (rebound rash after cessation), cataracts, suppression of the bodys ability to create its own cortisol, weight gain, poor height growth, and high blood sugar. Advocated avoidance of use nears eyes (glaucoma and cataracts) and skin folds (enhanced effect = atrophy) unless otherwise directed. Advised to use the medication only as needed. Our plan will alwaysbe to use the lowest potency possible and to use a regimen that employs intermittent rather than constant use of topical steroids. If the rash clears then stop and transition to CERAVE CREAM for maintenance. SUNSCREEN USE AND SUN PROTECTION: 1. The best protection is sun avoidance. Seek shade if you can, especially between 10am to 4pm (peak sun hours). 2. Use sunscreen with an SPF (Sun Protection Factor - the number on most sunscreen bottles) of 30 or more that protects from Ultraviolet A (UVA) and Ultraviolet B (UVB) wavelength light (strongly recommend SPF 50). This is referred to as broad spectrum sun protection because it protects from most wa velengths in both spectrums of UVA and UVB light. Unfortunately, even though the protection is broad it is not complete, therefore making sun avoidance the best protection. UVB and UVA have both beenimplicated in causing skin cancers. Older sunscreens only protected from UVB and sunscreens with added UVA protection should contain Titanium dioxide, Zinc oxide, or Avobenzone. Other oil free, non-comedogenic lotion with SPF 30 or greater is fine. 3. Use sun protection if outside for 15 minutes or more. Apply 20-30 minutes before going out and reapply every 1-2 hours. No sunscreen is truly water ''proof'' and it will wash away with sweat, swimming and rubbing. 4. Wear tightly woven, loose fitting (cooler) long sleeved clothing, UV-blocking sun glasses (eyes need protection as well) and wide-brimmed hatwear (no straw hats with holes because light still getsthrough). Strongly recommended *Neutrogena Pure and Free Baby SPF 60 (have separate face and body lotions) orCeraVe AM facial lotion (with SPF 30). If looking for non toxic alternatives-look for non-lydia particle zinc. Product examples; Think sport, Think baby, Colstrip, Ematic Solutions, Endgame, [place] baby. "Baby" products can be used for all ages. documented in this encounter Progress Notes * Delilah Lynn PA-C - 09/27/2021 8:48 AM EDT NOTE: This encounter occurred during SARS-CoV-2 pandemic SUBJECTIVE: History of Present Illness: Cuong Li is a 66 year old male seen today for follow up of psoriasis. Previous office visit: 03/22/2021 Last attempted treatments include: tacrolimus (penis) and desonide cream (face), fluocinonide creamprn flares Full skin exam 03/28 Pt feels that the areas are doing about the same. Using medications every few days to daily, not using BID. REVIEW OF SYSTEMS: SKIN: No other new or changing moles. HEME/LYMPH: No new or enlarging lumps or bumps. CONSTITUTIONAL: No nausea, vomiting, fevers, chills, diarrhea. No recent unintended weight loss, night sweats, appetite or malaise. 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 MEDICA TIONS: Current Outpatient Medications Medication Sig Dispense Refill LISINOPRIL 40 MG PO TABS Take by mouth. Indications: in am 90 Tab 3 VIAGRA 100 MG PO TABS one as needed 6 Tab 5 BuPROPion HCl ER, SR, 200 MG TB12 Take 200 mg by mouth 2 times a day. 1 twice daily 0 traZODone (DESYREL) 100 MG Tablet TAKE 1/2 TABLET DAILY AT BEDTIME 90 Tab 1 Fluocinonide 0.05 % External [...] g 2 Desonide 0.05 % External Cream Apply to pink patches on the face twice daily as needed for flares of psoriasis 15 g 3 Metoprolol Tartrate 25 MG Oral Tablet (Lopressor) one pill twice a day 180 Tablet 1 Atorvastatin Calcium 40 MG Oral Tablet (Lipitor) TAKE 1 TABLET BY MOUTH EVERYDAY AT BEDTIME 90 Tablet 1 Omeprazole 20 MG Oral Capsule Delayed Release (PriLOSEC) Take by mouth 1 Capsule in the morning. 90 Capsule 1 No current facility-administered medications for this visit. ALLERG IES: Patient has noknown allergies. OBJECT СВЕТЛАНА: GEN: alert, no distress, appears oriented, elderly, increased BMI, pleasant and cooperative. SKIN: Detailed exam of face including lids and lips, left upper ext. (arm, hand, fingers), fingernails, groin (penis) and buttocks completed: 1. R superior gluteal cleft/penile head/L forearm/elbow/L cheek/fingernails-Robards shiny eroded plaque in buttock, L forearm/elbow with 1cm white silvery scaled circular plaque on pink-red base, pale pink greasy white scaled plaque on L cheek. 3 fingernails with yellow-brown discoloration and oil spots. ASSESSMENT/PLAN: 1. 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 -Continue tacrolimus and desonide cream, fluocinonide cream prn flares (pt does not want to increase use of medications at this time) -Side effects of each medication discussed and treatment regimen written and printed on checkout sheet. Patient alone today. Photo(s) of #1 taken, pt verbally consented to having photo(s) taken. Follow-up: 03/29 for full skin exam/psoriasis Applicable photos (if any) and chart reviewed by Dr. Jarrod Vivas. Presumed diagnoses, expected natural histories, and management options discussed with the patient at length. Questions were addressed and anticipatory guidance provided. They were instructed to contact me if additional questions, concerns, or problems develop in the interim. -There were no barriers to learning and no other pain was related to today's visit. The patient and/or person accompanying patient demonstrates understanding of the visit and treatment. Delilah Lynn PA-C 09/27/2021 8:48 AM Ref: SELF[[id number]] NO STREET ADDRESS AVAILABLE None (office) None (fax) PCP: SANTI ARREGUIN [address] [place] [address] [place] [address] documented in this encounter Nursing Notes * Nj Peguero LPN - 09/27/2021 8:35 AM EDT Chief Complaint Patient presents with Re-Check documented in this encounter Plan of Treatment Upcoming Encounters Date Type Specialty Care Team Description 01/21/2022 [facility] Visit [facility] [address] 03/23/2022 Office Visit Dermatology Delilah Lynn PA-C [address] [place] [address] Scheduled Procedures Name Priority Associated Diagnoses Date/Ti [...] as of this encounter Visit Diagnoses Diagnosis Plaque psoriasis- Primary Other psoriasis Inverse psoriasis Other psoriasis Psoriasis of nail Other psoriasis Other psoriasis Sebopsoriasis Contact dermatitis and other eczema, due to unspecified cause documented in this encounter Advance Directives Documents on File Type Date Recorded Patient Bundle Helper Expl anation Advanced Directive Advanced Directive Advanced [...] Advanced Directive 06/03/2016 8:20 AM Care Teams Trading Analyst Relationship Specialty Start Date End Date Santi Arreguin MD PCP - General Family Medicine 09/20/16 documented as of this encounter
--- OUTSIDE RECORDS SUMMARY | 2023-02-20 21:40 | External Medical Summary | Summary of Care ---
Author Name Unknown Organization [place] [address] Care Team Providers Care Molecular Physicist Name Role Phone Armani Hough MD Primary Care Provider + [phone] Reason for Visit * Reason Onset Date Comments Medication Refill 11/15/2021 Encounter Details Date Type Department Care Team Description 11/15/2021 Refill Dermatology [address] [place] [address] Delilah Lynn PA-C [address] [place] [address] Other psoriasis; Inverse psoriasis Allergies No known active allergiesdocumented as of this encounter (statuses as of 11/15/2021) Medications Medication Sig Dispensed Refills Start Date [...] of psoriasis 60 g 1 11/15/2021 Active Desonide 0.05 % External CreamIndications:O ther psoriasis,Inverse psoriasis Apply to pink patches on the face twice daily as needed for flares of psoriasis 15 g 3 11/09/2021 2 Discontinue d(Refill) documented as of this encounter (statuses as of 11/15/2021) Active Problems Problem Noted Date Hx of [...] as of this encounter (statuses as of 11/15/2021) Resolved Problems Problem Noted Date Resolved Date [...] Lipid Taxonomy. Other chronic sinusitis 10/17/19 18 Basket Person's cramp 03/28/2019 documented as of this encounter (statuses as of 11/15/2021) Immunizations Name Administration Dates Next Due COVID-19 [...] Office Visit Neurology Lynn Hoover MD [address] [place] [address] 03/23/2022 Office Visit Dermatology Delilah Lynn PA-C [address] [place] [address] Scheduled Procedures Name Priority Associated Diagnoses Date/Ti [...] Documents on File Type Date Recorded Patient Biological Chemist Expl anation Advanced Directive Advanced Directive Advanced [...] Advanced Directive 06/03/2016 8:20 AM Care Teams Molecular Physicist Relationship Specialty Start Date End Date Armani Hough MD PCP - General Family Medicine 09/20/16 documented as of this encounter
--- OUTSIDE RECORDS SUMMARY | 2023-02-20 21:40 | External Medical Summary | Summary of Care ---
Author Name Unknown Organization [place] [address] Care Team Providers Care Materials Branch Chief Name Role Phone Armani Hough MD Primary Care Provider + [phone] Encounter Details Date Type Department Care Team Description 12/02/2021 External Data Patient Risk Medial Allergies No known active allergiesdocumented as of this encounter (statuses as of 12/09/2021) Medications Medication Sig Dispensed Refills Start Date [...] 1 04/17/2017 Active Fluocinonide 0.05 % External CreamIndications:All ergic [...] 1 06/28/2021 Active Desonide 0.05 % External CreamIndications:Oth er psoriasis,Inverse psoriasis Apply to pink patches on the face twice daily as needed for flares of psoriasis 60 g 1 11/15/2021 Active Hydrocortisone 2.5 % External OintmentIndications: Dermatitis Apply to rash on the face twice daily x 3-4 days, then 2-3 x's per week. 15 g 1 11/16/2021 Active documented as of this encounter (statuses as of 12/09/2021) Active Problems Problem Noted Date Hx of [...] as of this encounter (statuses as of 12/09/2021) Resolved Problems Problem Noted Date Resolved Date [...] Lipid Taxonomy. Other chronic sinusitis 10/17/19 18 Belt Builder's cramp 03/28/2019 documented as of this encounter (statuses as of 12/09/2021) Immunizations Name Administration Dates Next Due COVID-19 [...] Office Visit Neurology Lynn Hoover MD [address] [place] [address] 03/23/2022 Office Visit Dermatology Delilah Lynn PA-C [address] [place] [address] Scheduled Procedures Name Priority Associated Diagnoses Date/Ti [...] Documents on File Type Date Recorded Patient Desk Assistant Expl anation Advanced Directive Advanced Directive Advanced [...] Advanced Directive 06/03/2016 8:20 AM Care Teams Materials Branch Chief Relationship Specialty Start Date End Date Armani Hough MD PCP - General Family Medicine 09/20/16 documented as of this encounter
--- OUTSIDE RECORDS SUMMARY | 2023-02-20 21:40 | External Medical Summary ---
Author Name Unknown Address Unknown Organization K01:LABORATORY [facility] [place] - [address] [place] [address] Laboratory Report Ordering Provider Test Date Status WHITNEY NAJERA 01/21/2022 09:28:06 Final Observation Date Value Abnormality Reference (Units) Status Immunofixation for Serum or Plasma 01/21/2022 09:28:06 No monoclonal gammopathy detected. Final Performing Location LAB[facility]ATORY [facility] [place] - [address] [place] [id number]
--- OUTSIDE RECORDS SUMMARY | 2023-02-20 21:40 | External Medical Summary ---
Author Name Unknown Address Unknown Organization [id number]:[facility]ATORY [facility] [place] - [address] [place] [address] Laboratory Report Ordering Provider Test Date Status WHITNEY NAJERA 01/21/2022 09:28:06 Final Observation Date Value Abnormality Reference (Units ) Status Reagin Ab [Presence] in Serum by RPR 01/21/2022 09:28:06 Nonreactive Nonreactive Final Performing Location LABORATORY [facility] [place] - [address] [place] [address]
--- OUTSIDE RECORDS SUMMARY | 2023-02-20 21:40 | External Medical Summary ---
Author Name Unknown Address Unknown Organization K01:[facility] [place] [address] [place] [address] Laboratory Report Ordering Provider Test Date Status KALLIE HANCOCK 06/28/2021 09:08:44 Final Observation Date Value Abnormality Reference (Units ) Status Triglyceride 06/28/2021 09:08:44 72 <=174 ( mg/dL) Final Performing Location LABORATORY [facility] - [address] [place] [address]
--- OUTSIDE RECORDS SUMMARY | 2023-02-20 21:40 | External Medical Summary | Summary of Care ---
Author Name Unknown Organization [place] [address] Care Team Providers Care Sand Mill Operator Core Sand Name Role Phone Armani Arreguin MD Primary Care Provider + [phone] Reason for Visit * Reason Comments eRx-Medication Refill Encounter Details Date Type Department Care Team Description 12/17/2021 Refill Family Medicine [address] [address] Armani Arreguin MD [address] [place] [address] [place] [address] Hyperlipidemia LDL goal <130 Allergies No known active allergiesdocumented as of this encounter (statuses as of 12/17/2021) Medications Medication Sig Dispensed Refills Start Date [...] AT BEDTIME 90 Tablet 1 12/17/2021 Active Atorvastatin Calcium 40 MG Oral Tablet (Lipitor)Indicatio ns:Hyperlipidemia LDL goal <130 TAKE 1 TABLET BY MOUTH EVERYDAY AT BEDTIME 90 Tablet 1 06/28/2021 2 Discontinued documented as of this encounter (statuses as of 12/17/2021) Active Problems Problem Noted Date Hx of [...] as of this encounter (statuses as of 12/17/2021) Resolved Problems Problem Noted Date Resolved Date [...] Lipid Taxonomy. Other chronic sinusitis 10/17/19 18 R D Manager's cramp 03/28/2019 documented as of this encounter (statuses as of 12/17/2021) Immunizations Name Administration Dates Next Due COVID-19 [...] encounter Miscellaneous Notes * Telephone Encounter - Nila Pena [facility] - 12/17/2021 10:54 AM EDT Signed Prescriptions: Disp Refills Atorvastatin Calcium 40 MG Oral Tablet (Li*90 Tab*1 Sig: TAKE 1TABLET BY MOUTH EVERYDAY AT BEDTIMEAuthorizing Provider: ARMANI ARREGUIN User: NILA PENA documented in this encounter Plan of Treatment Upcoming Encounters Date Type Specialty Care Team Description 01/21/2022 Office Visit Neurology Lynn Hoover MD [address] [place] [address] 03/23/2022 Office Visit Dermatology Delilah Lynn PA-C [address] [place] [address] Scheduled Procedures Name Priority Associated Diagnoses Date/Ti [...] Documents on File Type Date Recorded Patient Patient Support Associate Expl anation Advanced Directive Advanced Directive Advanced [...] Advanced Directive 06/03/2016 8:20 AM Care Teams Sand Mill Operator Core Sand Relationship Specialty Start Date End Date Armani Arreguin MD PCP - General Family Medicine 09/20/16 documented as of this encounter
--- OUTSIDE RECORDS SUMMARY | 2023-02-20 21:40 | External Medical Summary ---
Author Name Unknown Address Unknown Organization K01:[facility] [place] [address] [place] [address] Laboratory Report Ordering Provider Test Date Status WHITNEY NAJERA 01/21/2022 09:28:06 Final Observation Date Value Abnormality Reference (Units ) Status Folic Acid 01/21/2022 09:28:06 7.0 >4.5 (ng/ mL) Final Performing Location LABORATORY [facility] - [address] [place] [address]
--- OUTSIDE RECORDS SUMMARY | 2023-02-20 21:40 | External Medical Summary | Summary of Care ---
Author Name Unknown Organization [place] [address] Care Team Providers Care Offshore Wind Turbine Technician Name Role Phone Armani Hough MD Primary Care Provider + [phone] Reason for Visit * Reason Onset Date Comments Medication Refill 11/16/2021 Encounter Details Date Type Department Care Team Description 11/16/20[facility] [address] [place] [address] Delilah Lynn PA-C [address] [place] [address] Dermatitis Allergies No known active allergiesdocumented as of this encounter (statuses as of 11/16/2021) Medications Medication Sig Dispensed Refills Start Date [...] as of this encounter (statuses as of 11/16/2021) Active Problems Problem Noted Date Hx of [...] as of this encounter (statuses as of 11/16/2021) Resolved Problems Problem Noted Date Resolved Date [...] Lipid Taxonomy. Other chronic sinusitis 10/17/19 18 Drywall Sander's cramp 03/28/2019 documented as of this encounter (statuses as of 11/16/2021) Immunizations Name Administration Dates Next Due COVID-19 [...] Office Visit Neurology Lynn Hoover MD [address] [place] [address] 03/23/2022 Office Visit Dermatology Delilah Lynn PA-C [address] [place] [address] Scheduled Procedures Name Priority Associated Diagnoses Date/Ti [...] Additional history exists Lipid Panel 06/28/2026 06/28/2021, 05, 01/06/2020, Additional history exists Pneumococcal Vaccine: 65+ [...] as of this encounter Visit Diagnoses Diagnosis Dermatitis Contact dermatitis and other eczema, due to unspecified cause documented in this encounter Advance Directives Documents on File Type Date Recorded Patient Mobile Battery Technician Expl anation Advanced Directive Advanced Directive [...] Advanced Directive 06/03/2016 8:20 AM Care Teams Offshore Wind Turbine Technician Relationship Specialty Start Date End Date Armani Hough MD PCP - General Family Medicine 09/20/16 documented as of this encounter
--- OUTSIDE RECORDS SUMMARY | 2023-02-20 21:40 | External Medical Summary | Summary of Care ---
Author Name Unknown Organization [place] [address] Care Team Providers Care Lmft Name Role Phone Armani Hough MD Primary Care Provider + [phone] Reason for Visit * Reason Comments eRx-Medication Refill Encounter Details Date Type Department Care Team Description 07/19/2021 Refill Family Medicine [address] [address] Armani Hough MD [address] [place] [address] [place] [address] Gastroesophageal reflux disease with esophagitis without hemorrhage Allergies No known active allergiesdocumented as of this encounter (statuses as of 2021) Medications Medication Sig Dispensed Refills Start Date [...] as of this encounter (statuses as of 2021) Active Problems Problem Noted Date Hx of [...] as of this encounter (statuses as of 2021) Resolved Problems Problem Noted Date Resolved Date [...] Lipid Taxonomy. Other chronic sinusitis 10/17/19 18 Chair Mechanic's cramp 03/28/2019 documented as of this encounter (statuses as of 2021) Immunizations Name Administration Dates Next Due COVID-19 [...] Notes * Telephone Encounter - Nila Pena RP - 2021 1:57 PM EDT Refused Prescriptions: Disp Refills Omeprazole 20 MG Oral Capsule Delayed Rele*90 Cap*3 Sig: TAKE 1CAPSULE DAILYRefused By: NILA PENA for Refusal: Too soonReason for Refusal Comment: filled at [facility] jun [facility] for 1 yr * Telephone Encounter - Nila Pena RPh - 2021 1:54 PM EDT Placed call to pt to verify if he wants remaining refills to be rerouted to [facility]. LMOVM. If pt calls back please verify if rx is to be rerouted to MD and re-pend to refill call center pharmacist pool. Thank you, Nila Pena, PharmD Clinical Pharmacist Telepharmacy [phone] 2021, 1:56 PM documented in this encounter Plan of Treatment Upcoming Encounters Date Type Specialty Care Team Description 09/27/2021 Office Visit Dermatology Delilah Lynn PA-C [address] [place] [address] 01/21/2022 Office Visit Neurology Lynn Hoover MD [address] [place] [address] 03/23/2022 Office Visit Dermatology Delilah Lynn PA-C [address] [place] [address] Scheduled Procedures Name Priority Associated Diagnoses Date/Ti [...] as of this encounter Visit Diagnoses Diagnosis Gastroesophageal reflux disease with esophagitis without hemorrhage documented in this encounter Advance Directives Documents on File Type Date Recorded Patient Clinical Field Specialist Expl anation Advanced Directive Advanced Directive [...] Advanced Directive 06/03/2016 8:20 AM Care Teams Lmft Relationship Specialty Start Date End Date Armani Hough MD PCP - General Family Medicine 09/20/16 documented as of this encounter
--- OUTSIDE RECORDS SUMMARY | 2023-02-20 21:40 | External Medical Summary | Summary of Care ---
Author Name Unknown Organization [place] [address] Care Team Providers Care New Account Interviewer Name Role Phone Armani Hough MD Primary Care Provider + [phone] Encounter Details Date Type Department Care Team Description 09/20/2021 Scan Encounter Family Medicine [address] [place] [address] Armani Hough MD [address] [place], [place] [address] <No scans attached> Allergies No known active allergiesdocumented as of this encounter (statuses as of 09/21/2021) Medications Medication Sig Dispensed Refills Start Date [...] as of this encounter (statuses as of 09/21/2021) Active Problems Problem Noted Date Hx of [...] as of this encounter (statuses as of 09/21/2021) Resolved Problems Problem Noted Date Resolved Date [...] Lipid Taxonomy. Other chronic sinusitis 10/17/19 18 Cnc Machine Operator's cramp 03/28/2019 documented as of this encounter (statuses as of 09/21/2021) Immunizations Name Administration Dates Next Due COVID-19 [...] 09/27/2021 Office Visit Dermatology Delilah Lynn PA-C [address] [place] [address] 01/21/2022 Office Visit Neurology Lynn Hoover MD [address] [place] [address], [place] [address] 03/23/2022 Office Visit Dermatology Delilah Lynn PA-C [address] [place] [address] Scheduled Procedures Name Priority Associated [...] Documents on File Type Date Recorded Patient Paint Dipper Expl anation Advanced Directive Advanced Directive Advanced [...] Advanced Directive 06/03/2016 8:20 AM Care Teams New Account Interviewer Relationship Specialty Start Date End Date Armani Hough MD PCP - General Family Medicine 09/20/16 documented as of this encounter
--- OUTSIDE RECORDS SUMMARY | 2023-02-20 21:40 | External Medical Summary ---
Author Name Unknown Address Unknown Organization [id number]:LAB[facility]ATORY [facility] [place] - [address] [place] [address] Laboratory Report Ordering Provider Test Date Status KALLIE HANCOCK 06/28/2021 11:47:26 Final Observation Date Value Abnormality Reference (Units ) Status Albumin, Urine 06/28/2021 11:47:26 <1.20 (mg/dL) Final Creatinine, Urine 06/28/2021 11:47:26 95 (mg/dL) Final Albumin/Creatinine [Mass Ratio] in Urine 06/28/2021 11:47:26 <13 <30 (mg/g Creat) Final Performing Location LABORATORY [facility] [place] - [address] [place] [address]
--- OUTSIDE RECORDS SUMMARY | 2023-02-20 21:40 | External Medical Summary | Summary of Care ---
Author Name Unknown Organization [place] [address] Care Team Providers Care Ethylene Plant Helper Name Role Phone Armani Hough MD Primary Care Provider + [phone] Reason for Visit * Reason Comments Re-Check Encounter Details Date Type Department Care Team Description 06/28/2021 Office Visit Family Medicine [address] [phone] Armani Hough MD [address] [place] [address] [place] [address] Primary hypertension*; Major depressive disorder, single episode, moderate (HCC); Hyperlipidemia LDL goal <130; CKD (chronic kidney disease), stage II; Gastroesophageal reflux disease with esophagitis without hemorrhage [...] 04/26/2013 Active Cholecalciferol (VITAMIN D) 2000 UNITS TabletIndications: [...] mouth. 0 Active Fluocinonide 0.05 % External CreamIndications:A llergic [...] the morning. 90 Capsule 1 06/28/2021 Active Omeprazole 20 MG Oral Capsule Delayed Release (PriLOSEC)Indicati ons:Esophageal reflux TAKE 1 CAPSULE DAILY 90 Cap 3 05/03/2020 2 Discontinue d(Refill) Atorvastatin Calcium 40 MG Oral Tablet (Lipitor)Indicatio ns:Hyperlipidemia LDL goal <130 TAKE 1 TABLET BY MOUTH EVERYDAY AT BEDTIME 90 Tab 1 12/09/2020 2 Discontinue d(Refill) Metoprolol Tartrate 25 MG Oral Tablet (Lopressor) one pill twice a day 180 Tab 1 12/23/2020 2 Discontinue d(Refill) traZODone HCl 50 MG Oral Tablet (Desyrel) Take 50 mg by mouth daily. 0 12/29/2020 2 Discontinue d(Medicatio n List Clean Up) documented as of this encounter (statuses as [...] Lipid Taxonomy. Other chronic sinusitis 10/17/19 18 Aircraft Electronics Technical Officer's cramp 03/28/2019 documented as of this encounter [...] Sign Reading Time Taken Comments Blood Pressure 132/82 06/28/2021 8:39 AM EST Pulse 72 06/28/2021 8:39 AM EST Temperature 35.8 C (96.5 F) 06/28/2021 8:39 AM ES T Respiratory Rate 16 06/28/2021 8:39 AM EST Oxygen Saturation - - Inhaled Oxygen Concentration - - Weight 92.1 kg (203 lb) 06/28/2021 8:39 AM EST Height - - Body Mass Index 29.98 12/23/2020 6:00 PM EDT documented in this [...] Progress Notes * Armani Hough MD - 06/28/2021 8:41 AM EST No complaints of headache, trouble with vision or hearing. Eating well, with no bowel or bladder complaints. Denies chest pain or palpitations. Denies nausea, vomiting, or diarrhea. Denies fevers, chills or sweats.. He is still feeling like his balance is off at times. He will get up and feel dizzy. Or just standing. He has to be careful on steps and wants nothing to do with step ladders. Denies shortness of breath, PND, or orthopnea. No skin rashes or breakdown. No changes in mentation. No syncope or falls. All others negative other than those noted in HPI. Health Maintenance addressed. Colonoscopy was 2020, Had the Coronovirus vaccine, 2 doses. Had flu shot Past Medical History: Diagnosis Date Avulsion of [...] right Trochanteric bursitis of right hip 06/10/2020 Aircraft Electronics Technical Officer's cramp Past Surgical History: Procedure Laterality Date COLONOSCOPY W/ LESION REMOVAL, SNARE 10/15/2010 polyp x1, path shows adenomatous tissue repeat in 5 years COLONOSCOPY, DIAGNOSTIC (RECTUM) 06/03/2016 7,6,2 mm polyps ascending, 6,3 mm polyps transverse colon Repeat 3 years/COLONOSCOPY FLEXIBLE PROXIMAL DIAGNOSTIC performed by Antoinette oGdinez MD at [facility] COLONOSCOPY, DIAGNOSTIC (RECTUM) 02/12/2020 2 adenomatous polyps in transverse colon, repeat 3 yrs / COLONOSCOPY FLEXIBLE PROXIMAL DIAGNOSTIC performed by Antoinette Godinez MD at [facility] CT LOWER EXTREMITY W CONTRAST Right [...] ABDOMEN LIMITED 05/30/2012 normal, no kidney stones Review of patient's allergies indicates: No Known Allergies Social History Socioeconomic History Marital status: Spouse name: Not on file Number of children: 2 Years of education: Not on file Highest education level: Not on file Occupational History 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 Two children in good health. 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 Indications: at bedtime BuPROPion HCl ER, SR, 200 MG TB12 Take 200 mg by mouth 2 times a day. 1 twice daily 0 traZODone (DESYREL) 100 MG Tablet TAKE 1/2 TABLET DAILY AT BEDTIME 90 Tab 1 FLUoxetine HCl 20 MG Oral Capsule (PROzac) Take 1 Cap by mouth. Fluocinonide 0.05 % External Cream Apply to rash on the abdomen twice daily as needed for flares 30 g 0 Omeprazole 20 MG Oral Capsule Delayed Release (PriLOSEC) TAKE 1 CAPSULE DAILY 90 Cap 3 Baclofen 10 MG Oral Tablet (Lioresal) TAKE 2 TABLETS BY MOUTH IN THE MORNING AND 1 TABLET IN THE EVENING 270 Tab 1 Atorvastatin Calcium 40 MG Oral Tablet (Lipitor) TAKE 1 TABLET BY MOUTH EVERYDAY AT BEDTIME 90 Tab 1 Metoprolol Tartrate 25 MG Oral Tablet (Lopressor) one pill twice a day 180 Tab 1 busPIRone HCl 15 MG Oral Tablet (Buspar) Take 15 Tablets by mouth 3 times a day. 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 60 g 2 Desonide 0.05 % External Cream Apply to pink patches on the face twice daily as needed for flares of psoriasis 15 g 3 No current facility-administered medications for this visit. Results for orders placed or performed in visit on 12/13/11 LIPID PANEL WITH DIRECT LDL IF TG ABOVE 400 MG/DL Result Value Ref Range HOURS FASTING 10 hours Triglycerides 197 <200 mg/dL Cholesterol 199 <200 mg/dL HDL Cholesterol 46 40 - 59 mg/dL Cholesterol-HDL Ratio 4.3 LDL Cholesterol 114 0 - 129 mg/dL LDL Cholesterol (Direct Measure) NOT APPLICABLE 0 - 100 mg/dL Results for orders placed or performed in visit on 12/09/20 COMPREHENSIVE METABOLIC PANEL Result Value Ref Range BUN 14 6 - 20 mg/dL Creatinine 1.0 0.6 - 1.2 mg/dL Estimated Glomerular Filtration Rate 76.6 >=60.0 mL/min Sodium 133 (L) 135 - 146 mmol/L Potassium 4.8 3.5 - 5.1 mmol/L Chloride 98 98 - 107 mmol/L CO2 25 22 - 32 mmol/L Anion Gap 10 7 - 15 mmol/L Glucose 98 70 - 120 mg/dL Albumin 4.7 3.8 - 5.0 g/dL AST 21 10 - 50 U/L Alkaline Phosphatase 90 35 - 130 U/L Bilirubin, Total 0.8 <=1.2 mg/dL Calcium 9.9 8.4 - 10.2 mg/dL Protein 7.0 6.0 - 8.3 g/dL ALT 22 10 - 50 U/L Lab Results Component Value Date/Time TSH - [facility] 1.54 12/09/2020 12:42 PM TSH - [facility] 1.90 07/14/2006 09:11 AM TSH - [facility] 2.23 03/10/2005 09:38 AM TSH - [facility] 2.45 06/29/2000 09:38 AM O: Blood pressure 132/82, pulse 72, temperature 35.8 C (96.5 F), temperature source Tympanic, resp. rate 16, weight 92.1 kg (203 lb). General appearance: well developed, well nourished and in no acute distress. Head normocephalic andatraumatic. No facial asymmetry. Eye exam; PEERLA, EOMI. No scleral icterus or nystagmus. Conjunctiva are pink and not injected. Oropharynx: no exudate, no pharyngeal inflammation or post nasal drip.The palate is free of lesions and the uvula is normal. Trachea is in the midline. Neck supple with no adenopathy or thyromegaly. No carotid bruits. Chest expands equally and is symmetrical with normal AP diameter. Lungs clear, with no wheezes, rales, or rhonchi. Heart: S1 and S2 normal. PMI not obviously displaced. Heart regular, no murmurs, gallops, clicks or rubs. No CVA tenderness. No calf swelling or tenderness. No pedal edema. No skin rashes. Extremities unremarkable. Balance seems ok whenhe gets out of the chair and walks A: Primary hypertension (Primary) - ALBUMIN / CREATININE RATIO, URINE; Future; Expected date: 06/28/2021 Major depressive disorder, single episode, moderate (HCC) Hyperlipidemia LDL goal <130 - Atorvastatin Calcium 40 MG Oral Tablet (Lipitor); TAKE 1 TABLET BY MOUTH EVERYDAY AT BEDTIME - LIPID PANEL WITH DIRECT LDL IF TG IS HIGH; Future; Expected date: 06/28/2021 CKD (chronic kidney disease), stage II - ALBUMIN / CREATININE RATIO, URINE; Future; Expected date: 06/28/2021 Esophageal reflux - Omeprazole 20 MG Oral Capsule Delayed Release (PriLOSEC); Take by mouth 1 Capsule in the morning. Other orders - Metoprolol Tartrate 25 MG Oral Tablet (Lopressor); one pill twice a day Continue other meds as before. Follow Up: Return in about 6 months (around 12/26/2021) for Clinic Visit. | For: Clinic Visit documented in this encounter Nursing Notes * Marina Partida LPN - 06/28/2021 8:38 AM EST 6 month recheck documented in this encounter Plan of Treatment Upcoming Encounters Date Type Specialty Care Team Description 06/28/2021 Laboratory Laboratory [address] [place] [address] Hyperlipidemia LDL goal <130; CKD (chronic kidney disease), stage II; Primary hypertension 09/27/2021 Office Visit Dermatology Delilah Lynn PA-C [address] [place] [address] 01/21/2022 Office Visit Neurology Lynn Hoover MD [address] [facility] [address] 03/23/2022 Office Visit Dermatology Delilah Lynn PA-C [address] [place] [address] Scheduled Orders Name Type Priority Associated Diagnoses Orde r Schedule LIPID PANEL WITH DIRECT LDL IF TG IS HIGH Lab Routine Hyperlipidemia LDL goal <130 Expected: 06/28/2021, Expires: 06/28/2022 ALBUMIN / CREATININE RATIO, URINE Lab Routine CKD (chronic kidney disease), stage II Primary hypertension Expected: 06/28/2021 (Approximate), Expires: 06/28/2022 Scheduled Procedures Name Priority Associated Diagnoses Date/Ti [...] as of this encounter Visit Diagnoses Diagnosis Primary hypertension- Primary Unspecified essential hypertension Major depressive disorder, single episode, moderate (HCC) Major depressive disorder, single episode, moderate Hyperlipidemia LDL goal <130 Other and unspecified hyperlipidemia CKD (chronic kidney disease), stage II Chronic kidney disease, Stage II (mild) Gastroesophageal reflux disease with esophagitis without hemorrhage Hyperlipidemia LDL goal <130 Other and unspecified hyperlipidemia CKD (chronic kidney disease), stage II Chronic kidney disease, Stage II (mild) Primary hypertension Unspecified essential hypertension documented in this encounter Advance Directives Documents on File Type Date Recorded Patient Auto Body Detailer Expl anation Advanced Directive Advanced Directive Advanced [...] Advanced Directive 06/03/2016 8:20 AM Care Teams Ethylene Plant Helper Relationship Specialty Start Date End Date Armani Hough MD PCP - General Family Medicine 09/20/16 documented as of this encounter"
--- OUTSIDE RECORDS SUMMARY | 2023-02-20 21:40 | External Medical Summary ---
Author Name Unknown Address Unknown Organization K01:LABORATORY [facility] [place] - [address] [place] [address] Laboratory Report Ordering Provider Test Date Status REINALDOWHITNEY 01/21/2022 09:28:06 Final Observation Date Value Abnormality Reference (Units ) Status TSH 01/21/2022 09:28:06 1.87 0.27-4.20 (uIU/mL) Final Performing Location LABORATORY [facility] - [address] [place] [address]
--- OUTSIDE RECORDS SUMMARY | 2023-02-20 21:40 | External Medical Summary | Summary of Care ---
Author Name Unknown Organization [place] [address] Care Team Providers Care Chief Compressor Station Engineer Name Role Phone Armani Hough MD Primary Care Provider + [phone] Reason for Visit * Reason Onset Date Comments eRx-Medication Refill Medication Refill 2021 Encounter Details Date Type Department Care Team Description 07/19/2021 Refill Family Medicine [address] [phone] Armani Hough MD [address] [place], [place] [address] [address] Gastroesophageal reflux disease with esophagitis without hemorrhage [...] Lipid Taxonomy. Other chronic sinusitis 10/17/19 18 Spout Worker's cramp 03/28/2019 documented as of this encounter [...] encounter Miscellaneous Notes * Telephone Encounter - VJ Walden - 2021 4:40 PM EDT Pt returned call, omeprazole to stay at [facility]. Thank you, Rita Aaron Signal Intelligence Analyst García [employer] 2021,4:40 PM * Telephone Encounter - Nila Pena [facility] - 2021 1:57 PM EDT Refused Prescriptions: Disp Refills Omeprazole 20 MG Oral Capsule Delayed Rele*90 Cap*3 Sig: TAKE 1CAPSULE DAILYRefused By: NILA PENA for Refusal: Too soonReason for Refusal Comment: filled at [facility] in jun 2021 for 1 yr * Telephone Encounter - Nila Pena [facility] - 2021 1:54 PM EDT Placed call to pt to verify if he wants remaining refills to be rerouted to [facility] Mail Order. LMOVM. If pt calls back please verify if rx is to be rerouted to [place] and re-pend to refill call center pharmacist pool. Thank you, Nila Pena PharmD Clinical Pharmacist [facility] [phone] 2021, 1:56 PM documented in this encounter Plan of Treatment Upcoming Encounters Date Type Specialty Care Team Description 09/27/2021 Office Visit Dermatology Delilah Lynn PA-C [address] [place] [address] 01/21/2022 Office Visit Neurology Lynn Hoover MD [address] [place] [address], [place] [address] 03/23/2022 Office Visit Dermatology Delilah Lynn PA-C [address] [facility] [place] [id number] Scheduled Procedures Name Priority Associated Diagnoses Date/Ti [...] Documents on File Type Date Recorded Patient Manager Internet Expl anation Advanced Directive Advanced Directive Advanced [...] Advanced Directive 06/03/2016 8:20 AM Care Teams Chief Compressor Station Engineer Relationship Specialty Start Date End Date Armani Hough MD PCP - General Family Medicine 09/20/16 documented as of this encounter
--- OUTSIDE RECORDS SUMMARY | 2023-02-20 21:40 | External Medical Summary ---
Author Name Unknown Address Unknown Organization : Laboratory Report Ordering Provider Test Date Status WHITNEY NAJERA 01/21/2022 09:28:06 Final Observation Date Value Abnormality Reference (Units ) Status METHYLMALONIC ACID 01/21/2022 09:28:06 201 8 [phone] (nmol/L) Final Performing Location
--- OUTSIDE RECORDS SUMMARY | 2023-02-20 21:40 | External Medical Summary | Summary of Care ---
Author Name Unknown Organization [place] [address] Care Team Providers Care Rotary Swaging Machine Operator Name Role Phone Santi Arreguin MD Primary Care Provider + [phone] Reason for Visit * Reason Comments Re-Check Encounter Details Date Type Department Care Team Description 09/27/2021 Office Visit Dermatology [address] [place] [address] Delilah Lynn PA-C [address] [place] [address] Plaque psoriasis*; Inverse psoriasis; Psoriasis of nail; Other psoriasis; Sebopsoriasis Allergies No known active allergiesdocumented as of this encounter (statuses as of 09/28/2021) Medications Medication Sig Dispensed Refills Start Date [...] as of this encounter (statuses as of 09/28/2021) Active Problems Problem Noted Date Hx of [...] as of this encounter (statuses as of 09/28/2021) Resolved Problems Problem Noted Date Resolved Date [...] Lipid Taxonomy. Other chronic sinusitis 10/17/19 18 Cryptographic Technician's cramp 03/28/2019 documented as of this encounter (statuses as of 09/28/2021) Immunizations Name Administration Dates Next Due COVID-19 [...] zinc. Product examples; Think sport, Think baby, [place], [employer] botanicals, [place] MATINAS BIOPHARMA, [place] baby. "Baby" products can be used for all ages. documented in this encounter Progress Notes * Jarrod Vivas MD - 09/28/2021 9:33 AM EDT I have seen and examined the patient via teledermatology review of chart note and photos with Delilah Lynn PA-C. I have reviewed and agree with the assessment and plan. * Delilah Lynn PA-C - 09/27/2021 8:48 [...] 02/18) Reviewed, same day as visit, 0 [facility] Dermatology lab work(s)/pathology report(s) as well as [...] 1. R superior gluteal cleft/penile head/L forearm/elbow/L cheek/fingernails-[place] shiny eroded plaque in buttock, L forearm/elbow [...] Delilah Lynn PA-C 09/27/2021 8:48 AM Ref: SELF[[id number]] NO STREET ADDRESS AVAILABLE None (office) None (fax) PCP: SANTI ARREGUIN [address] [place] [address] [place] [address] documented in this encounter Nursing Notes * Nj Peguero LPN - 09/27/2021 8:35 AM EDT Chief Complaint Patient presents with Re-Check documented in this encounter Plan of Treatment Upcoming Encounters Date Type Specialty Care Team Description 01/21/2022 Office Visit Neurology Lynn Hoover MD [address] [place] [id number] 03/23/2022 Office Visit Dermatology Delilah Lynn, PA-C [address] [place], [place] [id number] Scheduled Procedures Name Priority Associated Diagnoses Date/Ti [...] Procedure Name Priority Date/Time Associated Diagnosis Comments DERM IMAGE (SITE) Routine 09/27/2021 Inverse psoriasis Psoriasis of nail Other psoriasis Sebopsoriasis Plaque psoriasis documented in this encounter Results * DERM IMAGE (SITE) (09/27/2021) Specimen Narrative documented in this encounter Visit Diagnoses Diagnosis Plaque psoriasis- Primary Other psoriasis Inverse psoriasis Other psoriasis Psoriasis of nail Other psoriasis Other psoriasis Sebopsoriasis Contact dermatitis and other eczema, due to unspecified cause documented in this encounter Advance Directives Documents on File Type Date Recorded Patient Degreaser Operator Expl anation Advanced Directive Advanced Directive [...] Advanced Directive 06/03/2016 8:20 AM Care Teams Rotary Swaging Machine Operator Relationship Specialty Start Date End Date Santi Arreguin MD PCP - General Family Medicine 09/20/16 documented as of this encounter
--- OUTSIDE RECORDS SUMMARY | 2023-02-20 21:40 | External Medical Summary ---
Author Name Unknown Address Unknown Organization K09:[facility]ORY [place] [address] Laboratory Report Ordering Provider Test Date Status WHITNEY NAJERA 01/21/2022 09:28:06 Final Observation Date Value Abnormality Reference (Units ) Status BUN 01/21/2022 09:28:06 19 6-20 (mg/dL) Final Creatinine 01/21/2022 09:28:06 1.0 0.6-1.2 (mg/dL) Final Glomerular filtration rate/1.73 sq M.predicted [Volume Rate/Area] in Serum, Plasma or Blood by Creatinine-based formula (CKD-EPI) 01/21/2022 09:28:06 87 >=60 (mL/min) Final Performing Location [facility] [place] [address]
[2023-02-20] MEDS: ATORVASTATIN 40 MG TAB PO SCH (21:41)
[2023-02-20] MEDS: DOCUSATE SODIUM/SENNA 50/8.6MG TAB PO SCH (21:41)
[2023-02-20] MEDS: traZODone HCL 100 MG TAB PO SCH (21:41)
--- OUTSIDE RECORDS SUMMARY | 2023-02-20 21:41 | External Medical Summary | Summary of Care ---
Author Name Unknown Organization [facility] [address] Care Team Providers Care Message Clerk Name Role Phone Armani Hough MD Primary Care Provider + [phone] Encounter Details Date Type Department Care Team Description 03/23/2021 Scan Encounter Family Medicine [address] [place] [address] Armani Hough MD [address] [place], [place] [address]TA[place] [id number] <No scans attached> Allergies No known active allergiesdocumented as of this encounter (statuses as of 03/24/2021) Medications Medication Sig Dispensed Refills Start Date End Date Status LISINOPRIL 40 MG PO TABSIndications:in am Take by mouth. Indications: in am 90 Tab 3 12/13/2011 Active VIAGRA 100 MG PO TABSIndications:Impot ence of organic origin one as needed 6 Tab 5 04/26/2013 Active Cholecalciferol (VITAMIN D) 2000 UNITS TabletIndications:at bedtime Take 2,000 Units by mouth daily. Indications: at bedtime 0 Active BuPROPion HCl ER, SR, 200 MG TB12 Take 200 mg by mouth 2 times a day. 1 twice daily 0 05/26/2016 Active traZODone (DESYREL) 100 MG TabletIndications:Per sistent insomnia TAKE 1/2 TABLET DAILY AT BEDTIME 90 Tab 1 04/17/2017 Active FLUoxetine HCl 20 MG Oral Capsule (PROzac) Take 1 Cap by mouth. 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 Apply to rash on the abdomen twice daily as needed for flares 30 g 0 04/21/2020 Active Omeprazole 20 MG Oral Capsule Delayed Release (PriLOSEC)Indications :Esophageal reflux TAKE 1 CAPSULE DAILY 90 Cap 3 05/03/2020 Active Baclofen 10 MG Oral Tablet (Lioresal) TAKE 2 TABLETS BY MOUTH IN THE MORNING AND 1 TABLET IN THE EVENING 270 Tab 1 11/02/2020 Active Atorvastatin Calcium 40 MG Oral Tablet (Lipitor)Indications: Hyperlipidemia LDL goal <130 TAKE 1 TABLET BY MOUTH EVERYDAY AT BEDTIME 90 Tab 1 12/09/2020 Active Metoprolol Tartrate 25 MG Oral Tablet (Lopressor) one pill twice a day 180 Tab 1 12/23/2020 Active busPIRone HCl 15 MG Oral Tablet (Buspar) Take 15 Tablets by mouth 3 times a day. 0 08/07/2020 Active traZODone HCl 50 MG Oral Tablet (Desyrel) Take 50 mg by mouth daily. 0 12/29/2020 Active Tacrolimus 0.1 % External Ointment (Protopic)Indications :Other psoriasis,Inverse psoriasis APPLY TO PSORIASIS ON THE GENITALS TWICE DAILY NEEDED FOR FLARES. 60 g 2 03/22/2021 Active Desonide 0.05 % External CreamIndications:Othe r psoriasis,Inverse psoriasis Apply to pink patches on the face twice daily as needed for flares of psoriasis 15 g 3 03/22/2021 Active documented as of this encounter (statuses as of 03/24/2021) Active Problems Problem Noted Date Hx of [...] as of this encounter (statuses as of 03/24/2021) Resolved Problems Problem Noted Date Resolved Date [...] Lipid Taxonomy. Other chronic sinusitis 10/17/19 18 Web Marketing Intern's cramp 03/28/2019 documented as of this encounter (statuses as of 03/24/2021) Immunizations Name Administration Dates Next Due COVID-19 mRNA, LNP-s, No Pre serve, 2-Dose Series (Moderna) 08/10/2020,07/13/2020 Influenza Virus Vaccine, Uns pecified Formulation 03/08/2018 Pneumococcal Conjugate Vacc, 13 Valent (Prevnar) 09/20/2018,12/18/2012 Pneumococcal Polysaccharide PPV23 (Pneumovax) 02/27/2020,03/01/2019,09/18/2013,12/18 Seasonal Influenza, Quadriva lent Hd (Fluzone Hd) 02/12/2021 Seasonal Influenza, Quadriva lent, No Preserve, 6 Mons & Above, IM 02/08/2018 Seasonal Influenza, Quadriva lent, No Preserve, IM 03/01/2019,02/09/2017,01/15/2016,03/16 Seasonal Influenza, Split, I IV3, With Preserve, Inj 03/01/2019,01/07/2014,01/24/2013,02/15,02/17/2011,01/06/2010,05/08/2007 Seasonal Influenza, Trivalen t, Adjuvanted, 65+ yrs 02/27/2020 TD - Tetanus/Diptheria (ADULT) 07/06/2006 TDAP (age 10 and older)(Boostrix) 12/13/2011 Zoster Vaccine Recombinant (Shingrix) 12/16/2020 ,03/30/2020 documented as of this encounter Social History [...] Date Type Specialty Care Team Description 06/28/2021 Office Visit Family Medicine Armani Hough MD [address] [place] [address] [place] [phone] 09/27/2021 Office Visit Dermatology Delilah Lynn PA-C [address] [place] [address] 01/21/2022 Office Visit Neurology Lynn Hoover MD [address] [place] [address], [place] [address] 03/23/2022 Office Visit Dermatology Delilah Lynn PA-C [address] [place] [address] Scheduled Procedures Name Priority Associated Diagnoses Date/Ti me COLONOSCOPY FLEXIBLE PROXIMAL DIAGNOSTIC Recall History of colon polyps Health Maintenance Due Date Last Done Comments *DEPRESSION SCREENING,ANNUAL FOR PTS 12 AND OVER 10/13/2019 COVID-19 Vaccine (3 - Moderna risk 4-dose series) 09/07/2020 08/10/2020, 07/13/2020 DTaP,Tdap,and Td Vaccines (2 - Td or [...] Additional history exists Zoster Vaccines Completed 12/16/2020, 03/30/2020 Influenza Vaccine (FLU shot) Completed 12/2020, 02/27/2020, 03/01/2019, Additional history exists MENINGOCOCCAL (MENACTRA/MENVEO) Aged Out No longer eligible based on patient's age to complete this topic documented as of this encounter Implants Not on filedocumented as of this encounter Advance Directives Documents on File Type Date Recorded Patient Fish Bait Processing Supervisor Expl anation Advanced Directive Advanced Directive Advanced [...] Advanced Directive 06/03/2016 8:20 AM Care Teams Message Clerk Relationship Specialty Start Date End Date Armani Hough MD PCP - General Family Medicine 09/20/16 documented as of this encounter
--- OUTSIDE RECORDS SUMMARY | 2023-02-20 21:41 | External Medical Summary | Summary of Care ---
Author Name Unknown Organization [place] [address] Care Team Providers Care Lay Out Maker Name Role Phone Armani Hough MD Primary Care Provider + [phone] Reason for Visit * Reason Comments Follow Up R wrist Encounter Details Date Type Department Care Team Description 03/19/2021 Office Visit Orthopaedics [facility] [address] [facility] [place] [address] Gigi Harrell, [address] [facility] [place] [address] Primary osteoarthritis of first carpometacarpal joint of right hand* Allergies No known active allergiesdocumented as of this encounter (statuses as of 03/19/2021) Medications Medication Sig Dispensed Refills Start Date [...] Take 1 Cap by mouth. 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 60 g 2 09/01/2020 Active Baclofen 10 MG Oral Tablet (Lioresal) [...] a day 180 Tab 1 12/23/2020 Active Hospital, Clinic, or Other Facility Administered Medication Ordered Dose Route Frequency Start Date End Date Status lidocaine 1% 1 mL - triamcinolone acetonide 40 mg/mL 1 mL inj 2 mLIndications:Primary osteoarthritis of first carpometacarpal joint of right hand 2 mL IJ ONCE 03/19/2021 03/19/2021 Active documented as of this encounter (statuses as of 03/19/2021) Active Problems Problem Noted Date Hx of [...] as of this encounter (statuses as of 03/19/2021) Resolved Problems Problem Noted Date Resolved Date [...] Lipid Taxonomy. Other chronic sinusitis 10/17/19 18 Stemhole Borer's cramp 03/28/2019 documented as of this encounter (statuses as of 03/19/2021) Immunizations Name Administration Dates Next Due COVID-19 [...] Sign Reading Time Taken Comments Blood Pressure - - Pulse - - Temperature - - Respiratory Rate - - Oxygen Saturation - - Inhaled Oxygen Concentration - - Weight 90.7 kg (200 lb) 03/19/2021 8:29 AM EST Height - - Body Mass Index 29.53 12/23/2020 6:00 PM EDT documented in this [...] Progress Notes * Gigi Harrell, DO - 03/19/2021 8:31 AM EST Cuong Li [id number] Cuong Li is a 65 year old male [facility] Consult requested by Self. Cuong Li is here unaccompanied Date of injury: no injury Handedness: right History: Severity: reviewed and agree with Nursing Notes for HPI elements Modifying factors: activity exacerbates History - has been noting more pain base of thumb into wrist Patient has tried ibuprofen, tylenol and Rx NSAIDS and prednisone, all with no/ limited benefit. No formal physical therapy. Previous wrist injuries include: none ROS EXAM: Constitional: No change in weight, No weakness, No fatigue and No fevers, sweats, or chills Past Medical History: Diagnosis Date Avulsion of [...] right Trochanteric bursitis of right hip 06/10/2020 Stemhole Borer's cramp Family History Problem Relation Age of Onset Hypertension Father Hypertension Sister Hypertension Sister Hypertension Sister Hypertension Brother Cancer Aunt (Unspecified) Cancer Aunt (Unspecified) Arthritis Mother Arthritis Sister Diabetes Father Stroke Father Other (Tremors) None Other (Parkinson's Disease) None Social History Socioeconomic History Marital status: Spouse name: Not on file Number of children: 2 Years of education: Not on file Highest education level: Not on file Occupational History 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 Two children in good health. 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 Desonide 0.05 % External Cream Apply to pink patches on the face twice daily as needed for flares of psoriasis 15 g 3 Fluocinonide 0.05 % External Cream Apply to rash on the abdomen twice daily as needed for flares 30 g 0 Omeprazole 20 MG Oral Capsule Delayed Release (PriLOSEC) TAKE 1 CAPSULE DAILY 90 Cap 3 Tacrolimus 0.1 % External Ointment (Protopic) APPLY TO PSORIASIS ON THE GENITALS TWICE DAILY ASNEEDED FOR FLARES. 60 g 2 Baclofen 10 MG Oral Tablet (Lioresal) TAKE 2 TABLETS BY MOUTH IN THE MORNING AND 1 TABLET IN THE EVENING 270 Tab 1 Atorvastatin Calcium 40 MG Oral Tablet (Lipitor) TAKE 1 TABLET BY MOUTH EVERYDAY AT BEDTIME 90 Tab 1 Metoprolol Tartrate 25 MG Oral Tablet (Lopressor) one pill twice a day 180 Tab 1 No current facility-administered medications for this visit. Physical Exam Peripheral pulses: normal Skin examination: normal Mood and Effect: normal Coordination: normal Sensation: normal Hand exam, bilateral Inspection:no swelling Palpation: tender to palpation at 1st CMC joint right and along distal carpal row Range of motion: symmetric and normal in both hands Rotation, angulation, or crossover: no Thumb: Grind test: Crepitance YES Collateral ligaments stable - yes Digits: Collaterol ligaments intact - yes Boutonniere deformity - no Houstonia-neck deformity - no Mallet finger - no Ethan's test for central slip- negative Numbness/Tingling: No "Snuff Box" tenderness: negative Barbara's test: negative Strength: Disc Pad Plate Filler - 5/5 Finger spread - 5/5 Flex - 5/5 Ext - 5/5 Thumb pinch -5/5 Carpal tenderness: negative Radiology: I have personally reviewed the films Right Hand 02/18/21No visible fracture. Alignment is normal. Moderate-severe 1st CMC osteoarthritis with small adjacent corticated ossific densities, likely degenerative. Mild triscaphe osteoarthritis. Assessment and Plan: will do injection at base of CMC, my g update in 2 weeks, if fails then needs to see hand surgeon 1) Primary osteoarthritis of first carpometacarpal joint of right hand (Primary) - lidocaine 1% 1 mL - triamcinolone acetonide 40 mg/mL 1 mL inj 2 mL - POINT OF CARE US JOINT INJECTION INTERMEDIATE, ORTHO Gigi Harrell, DO Primary Care Sports Medicine Orthopaedics [facility] [address] [facility] [place] [address] Cuong Li [id number] Procedure Note, 1st carpal metacarpal joint, Right: Time out: Prior to injection, a time [...] injected using 25 g 1.5 inch needle, lidocaine 1% 1 mL - triamcinolone acetonide 40 mg/mL 1 mL inj 2 mL into carpal space under direct ultrasound guideance -minimal bleeding noted - dressing applied. - Patient was instructed on local wound care and the signs and symptoms of a possible wound infection. Gigi Harrell DO Primary Care Sports Medicine [facility] [place] [address] documented in this encounter Nursing Notes * Isabelle Mcghee ATC - 03/19/2021 8:30 AM EST Patient reporting pain in R wrist and thumb area. Reports issues with rigging up man strength due to pain. documented in this encounter Plan of Treatment Upcoming Encounters Date Type Specialty Care Team Description 03/22/2021 Office Visit Dermatology Delilah Lynn PA-C [address] [place] [address] 06/28/2021 Office Visit Family Medicine Armani Hough MD [address] [place] [address] [place] [phone] 01/21/2022 Office Visit Neurology Lynn Hoover MD [address] [place], [place] [address] [phone] Pending Results Name Type Priority Associated Diagnoses Date /Time POINT OF CARE US JOINT INJECTION INTERMEDIATE, ORTHO Medical Imaging Routine Primary osteoarthritis of first carpometacarpal joint of right hand 03/19/2021 8:59 AM EST Scheduled Procedures Name Priority Associated Diagnoses Date/Ti me COLONOSCOPY FLEXIBLE PROXIMAL DIAGNOSTIC Recall History of colon polyps Health Maintenance Due Date Last Done Comments *DEPRESSION SCREENING,ANNUAL FOR PTS 12 AND OVER 10/13/2019 COVID-19 Vaccine (3 - Booster for Moderna series) 02/09/2021 08/10/2020, 07/13/2020 DTaP,Tdap,and Td Vaccines (2 - [...] of this encounter Visit Diagnoses Diagnosis Primary osteoarthritis of first carpometacarpal joint of right hand- Primary Primary localized osteoarthrosis, hand documented in this encounter Advance Directives Documents on File Type Date Recorded Patient Traffic Clerk Expl anation Advanced Directive Advanced Directive Advanced [...] Advanced Directive 06/03/2016 8:20 AM Care Teams Lay Out Maker Relationship Specialty Start Date End Date Armani Hough MD PCP - General Family Medicine 09/20/16 documented as of this encounter
--- OUTSIDE RECORDS SUMMARY | 2023-02-20 21:41 | External Medical Summary | Summary of Care ---
Author Name Unknown Organization [place] [address] Care Team Providers Care Radio Equipment Repairer Name Role Phone Santi Arreguin MD Primary Care Provider + [phone] Reason for Visit * Reason Comments Follow Up Here for 1 year FBSE . No new concerns. Encounter Details Date Type Department Care Team Description 03/22/2021 Office Visit Dermatology [address] [place] [address] Delilah Lynn PA-C [address] [place] [address] H/O nonmelanoma skin cancer*; Other psoriasis; Inverse psoriasis; Psoriasis of nail; Seborrheic keratosis; Multiple nevi; Scar condition and fibrosis of skin Allergies No known active allergiesdocumented as of this encounter (statuses as of 03/23/2021) Medications Medication Sig Dispensed Refills Start Date End Date Status LISINOPRIL 40 MG PO TABSIndications:i n am Take by mouth. Indications: in am 90 Tab 3 12/13/2011 Active VIAGRA 100 MG PO TABSIndications:I mpotence of organic origin one as needed 6 Tab 5 04/26/2013 Active Cholecalciferol (VITAMIN D) 2000 UNITS TabletIndications :at bedtime Take 2,000 Units by mouth daily. [...] mouth. 0 Active Fluocinonide 0.05 % External CreamIndications: Allergic contact dermatitis due to metals Apply to rash on the abdomen twice daily as needed for flares 30 g 0 04/21/2020 Active Omeprazole 20 MG Oral Capsule Delayed Release (PriLOSEC)Indicat ions:Esophageal reflux TAKE 1 CAPSULE DAILY 90 Cap [...] 12/29/2020 Active Tacrolimus 0.1 % External Ointment (Protopic)Indicat ions:Other psoriasis,Inverse psoriasis APPLY TO PSORIASIS ON THE GENITALS TWICE DAILY NEEDED FOR FLARES. 60 g 2 03/22/2021 Active Desonide 0.05 % External CreamIndications: Other psoriasis,Inverse psoriasis Apply to pink patches on the face twice daily as needed for flares of psoriasis 15 g 3 03/22/2021 Active Desonide 0.05 % External CreamIndications: Psoriasis vulgaris Apply to pink patches on the face twice daily as needed for flares of psoriasis 15 g 3 03/17/2020 03/22/2021 Discontinued (Refill) Tacrolimus 0.1 % External Ointment (Protopic)Indicat ions:Other psoriasis APPLY TO PSORIASIS ON THE GENITALS TWICE DAILY NEEDED FOR FLARES. 60 g 2 09/01/2020 03/22/2021 Discontinued (Refill) documented as of this encounter (statuses as of 03/23/2021) Active Problems Problem Noted Date Hx of [...] as of this encounter (statuses as of 03/23/2021) Resolved Problems Problem Noted Date Resolved Date [...] Taxonomy. Other chronic sinusitis 10/17/19 18 Director Mortgage's cramp 03/28/2019 documented as of this encounter (statuses as of 03/23/2021) Immunizations Name Administration Dates Next Due COVID-19 [...] * Patient Instructions* Delilah Lynn PA-C - 03/22/2021 8:45 AM EST SUNSCREEN USE AND SUN PROTECTION: 1. The [...] zinc. Product examples; Think sport, Think baby, Yonathan, [employer], [employer], [place] baby. "Baby" products can be used for all ages. The side effects of chronic topical steroid [...] and transition to CERAVE CREAM for maintenance. documented in this encounter Progress Notes * Jarrod Vivas MD - 03/23/2021 7:55 AM EST I have seen and examined the patient via teledermatology review of chart note and photos with Delilah Lynn PA-C. I have reviewed and agree with the assessment and plan. * Delilah Lynn PA-C - 03/22/2021 8:43 AM EST NOTE: This encounter occurred during SARS-CoV-2 pandemic SUBJECTIVE: HPI: Cuong Li is a 65 year old male seen at the request of Self for evaluation and treatmentof full skin exam. - Tanning bed history. + Blistering sunburns. No new or changing lesions, per pt. Have you ever had a swollen joint (joints)? Yes. Has a doctor ever told you that you have arthritis? Yes. Do you finger nails or toenails have holes or pits? No. Have you had pain in your heel? No. Have you had a finger or toe that was completely swollen and painful for no apparent reason? No. REVIEW OF SYSTEMS: SKIN: No other new [...] ear 02/18) Reviewed, same day as visit, 6 [facility] Dermatology pathology reports and clinic notes as well as those sent by referring provider prior to seeing pt. Past Medical History: Diagnosis Date Avulsion of [...] right Trochanteric bursitis of right hip 06/10/2020 Director Mortgage's cramp FAMILY HISTORY: Skin CA: None Skin Disorders: none SOCIAL HISTORY: Social History Tobacco Use Smoking status: Former Smoker Packs/day: 0.25 Years: 40.00 Pack years: 10.00 Types: Cigarettes Quit date: 05/26/2014 Years since quittin.8 Smokeless tobacco: Never Used Tobacco comment: quit for 10 years then restarted Substance Use Topics Alcohol use: Yes Alcohol/week: 5.0 standard drinks Types: 6 12 oz of beer per week Comment: occ Vaping/E-Cigarette Use Vaping/E-Cigarette Substances Vaping/E-Cigarette Devices MEDICA TIONS: Current Outpatient Medications Medication Sig Dispense Refill busPIRone HCl 15 MG Oral Tablet (Buspar) Take 15 Tablets by mouth 3 times a day. LISINOPRIL 40 MG PO TABS Take by [...] pill twice a day 180 Tab 1 traZODone HCl 50 MG Oral Tablet (Desyrel) Take 50 mg by mouth daily. No current facility-administered medications for this visit. ALLERGY: Patient has no known allergies. OBJECT СВЕТЛАНА: GEN: alert, no distress, appears oriented, elderly, increased BMI, pleasant and cooperative. SKIN: Detailed exam of hair, face including lids and lips, neck, chest, abdomen, back, bilateral upper ext. (arm, hand, fingers), bilateral lower ext. (leg, foot, toes), palpation of scalp, fingernails, toenails, inguinal areas, groin (penis, scrotum and perineum), buttocks and anus completed: 1. Superior gluteal cleft/penile head/L forearm/fingernails-[place] shiny plaque in buttock, pale pinkmacule, L forearm with 1cm white silvery scaled circular plaque on pink-red base. 3 fingernails with yellow-brown discoloration and oil spots. 2. R superior helix-post inflammatory erythematous atrophic depressed scar. 3. Trunk/bilat arms and legs-About 45 total; 2-4mm light and light-medium brown macules and few soft papules. 4. Trunk-Few sharply defined, variegated brown, waxy flat papules with velvety to finely verrucous surfaces. ASSESSMENT/PLAN: 1. 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 -Continue tacrolimus and desonide cream, fluocinonide cream BID prn flares -Side effects of each medication discussed and treatment regimen written and printed on checkout sheet. 2. 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 3. Nevi on trunk/bilat arms and legs-no tx needed, pt given reassurance and written education aboutdiagnosis. Skin cancer brochure given and ABCDE's discussed with patient. Annual full body skin examination (unless I recommended otherwise), self-examination, and sun protection (SPF 30+ daily to sun exposed areas, with reapplication every 1-2 hours when out in sun for long periods of time) advised and discussed. Recommended sooner follow up for new or changing lesions. These changes include rapid enlargement, changes in color or shape or symptoms, bleeding, or other concerns. The common features and behavior of non-melanoma skin cancers (e.g. BCC/SCC) as well as the ABCDEs and ugly duckling features of melanoma were also reviewed. 4. Seborrheic/Benign Keratosis(-es) on trunk-no tx needed, pt given reassurance and written education about diagnosis. Patient alone today. Photo(s) of #1-4 taken, pt verbally consented to having photo(s) taken. Follow-up: 6 months for psoriasi 1 year for full skin exam Photos and chart reviewed by Dr. Jarrod Vivas. Presum ed diagnoses, expected natural histories, and management options [...] the visit and treatment. Delilah Lynn PA-C 03/22/2021 8:43 AM Ref: SELF[[id number]] NO STREET ADDRESS AVAILABLE None (office) None (fax) PCP: SANTI ARREGUIN [address] [place] [address] [place] [address] [phone] documented in this encounter Nursing Notes * Johanne Bowman LPN - 03/22/2021 8:42 AM EST Patient identified by name and date of . Do you have any concerns about pain management for today's visit? No Living Will or Advance Directive for Health Care as noted on problem list. [facility] is a way you can talk to your provider online through e-mail. Would you like to sign up? I can activate it for you? ALREADY ACTIVE Chief Complaint Patient presents with Follow Up Here for 1 year FBSE. No new concerns. documented in this encounter Plan of Treatment Upcoming Encounters Date Type Specialty Care Team Description 06/28/2021 Office Visit Family Medicine Santi Arreguin MD [address] [place] [address] [place] [address] 09/27/2021 Office Visit Dermatology Delilah Lynn PA-C [address] [place] [address] 01/21/2022 Office Visit Neurology Lynn Hoover MD [address] [place] [address], [place] [address] 03/23/2022 Office Visit Dermatology Delilah Lynn PA-C [address] [place] [address] Scheduled Procedures Name Priority Associated Diagnoses Date/Ti [...] Associated Diagnosis Comments DERM IMAGE (SITE) Routine 03/22/2021 Other psoriasis Inverse psoriasis Psoriasis of nail Seborrheic keratosis Multiple nevi Scar condition and fibrosis of skin H/O nonmelanoma skin cancer documented in this encounter Results * DERM IMAGE (SITE) (03/22/2021) Specimen Narrative documented in this encounter Visit Diagnoses Diagnosis H/O nonmelanoma skin cancer- Primary Personal history of other malignant neoplasm of skin Other psoriasis Inverse psoriasis Other psoriasis Psoriasis of nail Other psoriasis Seborrheic keratosis Other seborrheic keratosis Multiple nevi Benign neoplasm of skin, site unspecified Scar condition and fibrosis of skin documented in this encounter Advance Directives Documents on File Type Date Recorded Patient Manager Of Software Expl anation Advanced Directive Advanced Directive Advanced [...] Advanced Directive 06/03/2016 8:20 AM Care Teams Radio Equipment Repairer Relationship Specialty Start Date End Date Santi Arreguin MD PCP - General Family Medicine 09/20/16 documented as of this encounter
--- OUTSIDE RECORDS SUMMARY | 2023-02-20 21:41 | External Medical Summary | Summary of Care ---
Author Name Unknown Organization [place] [address] Care Team Providers Care Cargo Station Worker Name Role Phone Santi Arreguin MD Primary Care Provider + [phone] Reason for Visit * Reason Comments Follow Up Here for 1 year FBSE . No new concerns. Encounter Details Date Type Department Care Team Description 03/22/2021 Office Visit Dermatology [address] [place] [address] Delilah Lynn PA-C [address] [place] [address] H/O nonmelanoma skin cancer*; Other psoriasis; Inverse psoriasis; Psoriasis of nail; Seborrheic keratosis; Multiple nevi; Scar condition and fibrosis of skin Allergies No known active allergiesdocumented as of this encounter (statuses as of 03/22/2021) Medications Medication Sig Dispensed Refills Start Date [...] as of this encounter (statuses as of 03/22/2021) Active Problems Problem Noted Date Hx of [...] as of this encounter (statuses as of 03/22/2021) Resolved Problems Problem Noted Date Resolved Date [...] Lipid Taxonomy. Other chronic sinusitis 10/17/19 18 Supervisor Lathing's cramp 03/28/2019 documented as of this encounter (statuses as of 03/22/2021) Immunizations Name Administration Dates Next Due COVID-19 [...] Product examples; Think sport, Think baby, Yonathan, [employer], [employer] [place] baby. "Baby" products can be used [...] Progress Notes * Delilah Lynn PA-C - 03/22/2021 8:43 [...] 02/18) Reviewed, same day as visit, 6 [facility] Dermatology pathology reports and clinic notes as [...] right Trochanteric bursitis of right hip 06/10/2020 Hazel riley FAMILY HISTORY: Skin CA: None Skin Disorders: [...] anus completed: 1. Superior gluteal cleft/penile head/L forearm/fingernails-[place] shiny plaque in buttock, pale pinkmacule, L [...] Delilah Lynn PA-C 03/22/2021 8:43 AM Ref: SELF[[id number]] NO STREET ADDRESS AVAILABLE None (office) None (fax) PCP: SANTI ARREGUIN [address] [place] [address] [place] [address] documented in this encounter Nursing Notes * Johanne Bowman LPN - 03/22/2021 8:42 AM EST Patient identified by name and date of . Do you have any concerns about pain management for today's visit? No Living Will or Advance Directive for Health Care as noted on problem list. [facility] is a way you can talk to [...] Office Visit Family Medicine Santi Arreguin MD [address] [place] [address] [place] [phone] 01/21/2022 Office Visit Neurology Lynn Hoover MD [address] [place] [address] [place] [address] Scheduled Procedures Name Priority Associated Diagnoses Date/Ti [...] as of this encounter Visit Diagnoses Diagnosis H/O nonmelanoma skin cancer- Primary Personal history of other malignant neoplasm of skin Other psoriasis Inverse psoriasis Other psoriasis Psoriasis of nail Other psoriasis Seborrheic keratosis Other seborrheic keratosis Multiple nevi Benign neoplasm of skin, site unspecified Scar condition and fibrosis of skin documented in this encounter Advance Directives Documents on File Type Date Recorded Patient Medical Claims Processor Expl anation Advanced Directive Advanced Directive Advanced [...] Advanced Directive 06/03/2016 8:20 AM Care Teams Cargo Station Worker Relationship Specialty Start Date End Date Santi Arreguin MD PCP - General Family Medicine 09/20/16 documented as of this encounter
--- OUTSIDE RECORDS SUMMARY | 2023-02-20 21:41 | External Medical Summary | Summary of Care ---
Author Name Unknown Organization [place] [address] Care Team Providers Care Condenser Cleaner Name Role Phone Armani Hough MD Primary Care Provider + [phone] Reason for Visit * Reason Comments Follow Up R wrist Encounter Details Date Type Department Care Team Description 03/19/2021 Office Visit Orthopaedics [facility] [address] [facility] [place] [address] Gigi Harrell, [address] [facility] [place] [address] Primary osteoarthritis of first carpometacarpal joint of [...] hand 2 mL IJ ONCE 03/19/2021 03/19/2021 Ended documented as of this encounter (statuses [...] Lipid Taxonomy. Other chronic sinusitis 10/17/19 18 Medical Care Administrator's cramp 03/28/2019 documented as of this [...] Harrell, DO - 03/19/2021 8:31 AM EST [place] [id number] Cuong Li is a 65 year old male who [facility]. 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 [employer] Social Determinants of Health Financial Resource Strain: [...] intact - yes Boutonniere deformity - no Crane-neck deformity - no Mallet finger - no Ethan's test for central slip- negative Numbness/Tingling: No "Snuff Box" tenderness: negative Barbara's test: negative Strength: Leather Piece Inspector - 5/5 Finger spread - 5/5 Flex [...] Harrell, DO Primary Care Sports Medicine Orthopaedics [facility] [address] [facility] [place] [address] Cuong Li [id number] Procedure Note, 1st carpal metacarpal joint, Right: [...] Gigi Harrell DO Primary Care Sports Medicine [facility] [place] [address] documented in this encounter Nursing Notes * Isabelle Mcghee ATC - 03/19/2021 8:30 AM EST Patient reporting pain in R wrist and thumb area. Reports issues with marine fisheries technician strength due to pain. documented in this encounter Plan of Treatment Upcoming Encounters Date Type Specialty Care Team Description 03/22/2021 Office Visit Dermatology Delilah Lynn PA-C [address] [place] [address] 06/28/2021 Office Visit Family Medicine Armani Hough MD [address] [place] [address] [place] [address] 01/21/2022 Office Visit Neurology Lynn Hoover MD [address] [place], [place] [address] [address] Pending Results Name Type Priority Associated Diagnoses [...] 2 mL 2 mL, Injection, ONCE, On Mon03/19/21 at 0930, For 1 dose, Lidocaine 1% 1mL Triamcinolone Acetonide 40 mg/mL 1 mL (Final concentration = 20 mg/mL) REFRIGERATE and SHAKE WELL Given 03/19/2021 9:15 AM EST 2 mL Wrist Right documented in this encounter Advance Directives Documents on File Type Date Recorded Patient Lamp Shade Maker Expl anation Advanced Directive Advanced Directive Advanced [...] Advanced Directive 06/03/2016 8:20 AM Care Teams Condenser Cleaner Relationship Specialty Start Date End Date Armani Hough MD PCP - General Family Medicine 09/20/16 documented as of this encounter
--- OUTSIDE RECORDS SUMMARY | 2023-02-20 21:41 | External Medical Summary | Summary of Care ---
Author Name Unknown Organization [place] [address] Care Team Providers Care Fruit I Farmworker Name Role Phone Armani Hough MD Primary Care Provider + [phone] Encounter Details Date Type Department Care Team Description 03/04/2021 Patient Reported Data Patient Survey Ortho OBERD Allergies No Known Active Allergiesdocumented as of this encounter (statuses as of 03/04/2021) Medications Medication Sig Dispensed Refills Start Date [...] a day 180 Tab 1 12/23/2020 Active documented as of this encounter (statuses as of 03/04/2021) Active Problems Problem Noted Date CKD (chronic kidney disease), stage II 0 09/14/2020 Overview: EGFR 71 Trochanteric bursitis of right hip 06/10 Essential tremor 01/12/2018 Persistent insomnia 06/22/2015 History of basal cell carcinoma 10/03/19 15 Overview: right chest 09/2014 History of squamous cell carcinoma 08/26 Overview: right helix 02/18 Raynaud's syndrome 09/07/2006 ADVANCE DIRECTIVE INFORMATION 09/29/2005 Overview: No, Advance Directive brochure given to patient at prior appointment. 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 Essential and other specified forms of tremor 12/21/2012 PURE HYPERCHOLESTEROLEM 04/27/20 09 Overview: Per Lipid Taxonomy. Other chronic sinusitis 10/17/19 18 Bus Trolley And Taxi Instructor's cramp 03/28/2019 documented as of this encounter (statuses as of 03/04/2021) Immunizations Name Administration Dates Next Due COVID-19 [...] 10 years t hen restarted Alcohol Use Drinks/Week oz/Week Comments Yes 6 12 oz of beer 5.0 occ Food Insecurity Answer Date Recorded Within the past 12 months, y ou worried that your food would run out before you got money to buy more. Never true Within the past 12 months, t he food you bought just didn't last and you didn't have money to get more. Never true Sex Assigned at Date Recorded Not on [...] Encounters Date Type Specialty Care Team Description 03/19/2021 Office Visit Orthopedics Gigi Harrell, [address] [facility] [place] [address] [phone] 03/22/2021 Office Visit Dermatology Delilah Lynn PA-C [address] [facility] [address] [phone] 06/28/2021 Office Visit Family Medicine Armani Hough MD [address] [place] [address] [place] [address] [phone] 01/21/2022 Office Visit Neurology Lynn Hoover MD [address] [place] [address] [phone] Health Maintenance Due Date Last Done Comments *DEPRESSION SCREENING,ANNUAL FOR PTS 12 AND OVER 10/13/2019 DTaP,Tdap,and Td Vaccines (2 - Td) 12/12/2021 12/13/2011, 07/06/2006 COLONOSCOPY-EVERY 3 YRS AGES 18-100 02/11/2023 02/12/2020, 02/12/2020, 06/03/2016, Additional history exists DIABETES SCREEN EVERY 3 YRS-AGE 45 AND ABOVE 12/10/2023 12/09/2020, 09/14/2020, 01/06/2020, Additional history exists LIPID SCREEN EVERY 5 YRS-MEN AGE 35-75 09/14/2025 09/14/2020, 01/06/2020, 09/12/2018, Additional history exists Pneumococcal Vaccine: 65+ Years Completed 02/27/2020, 03/01/2019, 09/20/2018, Additional history exists COVID-19 Vaccine Completed 08/10/2020, 07/13/2020 Zoster Vaccines Completed 12/16/2020, 03/30/2020 Influenza Vaccine (FLU shot) Completed 12/2020, 02/27/2020, 03/01/2019, Additional history exists MENINGOCOCCAL (MENACTRA/MENVEO) Aged Out No longer eligible based on patient's age to complete this topic documented as of this encounter Implants Not on filedocumented as of this encounter Advance Directives Documents on File Type Date Recorded Patient Interpreter Deaf Expl 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 Advanced Directive Advanced Directive Advanced Directive Advanced Directive Advanced Directive Advanced Directive Advanced Directive Advanced Directive Advanced Directive Advanced Directive Advanced Directive Advanced Directive Advanced Directive Advanced Directive Advanced Directive Advanced Directive Advanced Directive Advanced Directive Advanced Directive Advanced Directive Advanced Directive
[2023-02-20] MEDS: LIDOCAINE 5% 1 PATCH TD SCH (21:42)
--- OUTSIDE RECORDS SUMMARY | 2023-02-20 21:42 | External Medical Summary | Summary of Care ---
Author Name Unknown Organization [place] [address] Care Team Providers Care Stick Roller Name Role Phone Armani Hough MD Primary Care Provider + [phone] Reason for Visit * Reason Onset Date Comments Appointment 12/09/2020 6 mon ret w/ PAP /Echo Encounter Details Date Type Department Care Team Description 12/09/2020 Telephone Family Medicine [address] [address] Armani Hough MD [address] [place], [place] [address] [address] [phone] Appointment (6 mon ret w/ PAP/Echo ) Allergies No Known Active Allergiesdocumented as of this encounter (statuses as of 12/09/2020) Medications Medication Sig Dispensed Refills Start Date End Date Status LISINOPRIL 40 MG PO TABSIndications:in am Take by mouth. Indications: in am 90 Tab 3 12/13/2011 Active VIAGRA 100 MG PO TABSIndications:Impote nce of organic origin one as needed 6 Tab 5 04/26/2013 Active Cholecalciferol (VITAMIN D) 2000 UNITS TabletIndications:at bedtime Take 2,000 Units by mouth daily. Indications: at bedtime 0 Active BuPROPion HCl ER, SR, 200 MG TB12 Take 200 mg by mouth 2 times a day. 1 twice daily 0 05/26/2016 Active traZODone (DESYREL) 100 MG TabletIndications:Pers istent insomnia TAKE 1/2 TABLET DAILY AT BEDTIME 90 Tab 1 04/17/2017 Active zoster vac recomb adjuvanted (SHINGRIX) 50 MCG/0.5ML injectionIndications:N eed for vaccination for zoster Inject 0.5 mL into a large muscle now and repeat dose in 60 to 180 days 1 Each 1 12/09/2019 Active FLUoxetine HCl 20 MG Oral Capsule (PROzac) Take 1 Cap by mouth. 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 60 g 2 09/01/2020 Active Baclofen 10 MG Oral Tablet (Lioresal) TAKE 2 TABLETS BY MOUTH IN THE MORNING AND 1 TABLET IN THE EVENING 270 Tab 1 11/02/2020 Active amLODIPine Besylate 10 MG Oral Tablet (Norvasc)Indications:C KD (chronic kidney disease), stage II,Primary hypertension Take 1 Tab by mouth daily. 90 Tab 3 12/09/2020 Active Atorvastatin Calcium 40 MG Oral Tablet (Lipitor)Indications:H yperlipidemia LDL goal <130 TAKE 1 TABLET BY MOUTH EVERYDAY AT BEDTIME 90 Tab 1 12/09/2020 Active documented as of this encounter (statuses as of 12/09/2020) Active Problems Problem Noted Date CKD (chronic kidney disease), stage II 0 09/14/2020 Overview: EGFR 71 Trochanteric bursitis of right hip 06/10 Essential tremor 01/12/2018 Persistent insomnia 06/22/2015 History of basal cell carcinoma 10/03/19 15 Overview: right chest 09/2014 History of squamous cell carcinoma 08/26 Overview: right helix 10/14 Raynaud's syndrome 09/07/2006 ADVANCE DIRECTIVE INFORMATION 09/29/2005 Overview: No, Advance Directive brochure given to patient at prior appointment. 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 Other chronic sinusitis 10/17/19 18 Doper's cramp 03/28/2019 documented as of this encounter (statuses as of 12/09/2020) Immunizations Name Administration Dates Next Due COVID-19 mRNA, LNP-s, No Pre serve, 2-Dose Series (Moderna) 08/10/2020,07/13/2020 Influenza Virus Vaccine, Uns pecified Formulation 03/08/2018 Pneumococcal Conjugate Vacc, 13 Valent (Prevnar) 09/20/2018,12/18/2012 Pneumococcal Polysaccharide PPV23 (Pneumovax) 02/27/2020,03/01/2019,09/18/2013,12/18 Seasonal Influenza, Quadriva lent, No Preserve, 6 Mons & Above, IM 02/08/2018 Seasonal Influenza, Quadriva lent, No Preserve, IM 03/01/2019,02/09/2017,01/15/2016,03/16 Seasonal Influenza, Split, I IV3, With Preserve, Inj 03/01/2019,01/07/2014,01/24/2013,02/15,02/17/2011,01/06/2010,05/08/2007 Seasonal Influenza, Trivalen t, Adjuvanted, 65+ yrs 02/27/2020 TD - Tetanus/Diptheria (ADULT) 07/06/2006 TDAP (age 10 and older)(Boostrix) 12/13/2011 Zoster Vaccine Recombinant (Shingrix) 03/30/2020 documented as of this encounter Social History [...] encounter Miscellaneous Notes * Telephone Encounter - Margaret Vidales OSA - 12/09/2020 4:30 PM EDT Scheduled, pt aware. * Telephone Encounter - Margaret Vidales OSA - 12/09/2020 3:17 PM EDT I left message on patient's Vm to call me (RE: He did not checkout today, he needs a 6 mon ret w/ Dr. Hough and also an echo scheduled). documented in this encounter Plan of Treatment Upcoming Encounters Date Type Specialty Care Team Description 12/17/2020 Cardiac Studies Cardiac Studies [place], Checkroom [address] [place] [address] [phone] 01/21/2021 Office Visit Neurology Lynn Hoover MD [address] [place] [address] [phone] 03/22/2021 Office Visit Dermatology Delilah Lynn PA-Claudio [address] [place], [place] [id number] 06/17/2021 Office Visit Family Medicine Armani Hough MD [address] [place] [address] [place] [address] [phone] Health Maintenance Due Date Last Done Comments *DEPRESSION SCREENING,ANNUAL FOR PTS 12 AND OVER 10/13/2019 Zoster Vaccines (2 of 2) 05/25/2020 03/30/2020 Influenza Vaccine (FLU shot) (#1) 2021 02/27/2020, 03/01/2019, 03/01/2019, Additional history exists DTaP,Tdap,and Td Vaccines (2 - Td) 12/12/2021 12/13/2011, 07/06/2006 COLONOSCOPY-EVERY 3 YRS AGES 18-100 02/11/2023 02/12/2020, 02/12/2020, 06/03/2016, Additional history exists DIABETES SCREEN EVERY 3 YRS-AGE 45 AND ABOVE 09/15/2023 09/14/2020, 01/06/2020, 09/12/2018, Additional history exists LIPID SCREEN EVERY 5 YRS-MEN AGE 35-75 09/14/2025 09/14/2020, 01/06/2020, 09/12/2018, Additional history exists Pneumococcal Vaccine: 65+ Years Completed 02/27/2020, 03/01/2019, 09/20/2018, Additional history exists COVID-19 Vaccine Completed 08/10/2020, 07/13/2020 MENINGOCOCCAL (MENACTRA/MENVEO) Aged Out No longer eligible based on patient's age to complete this topic documented as of this encounter Implants Not on filedocumented as of this encounter Advance Directives Documents on File Type Date Recorded Patient Poising Inspector Expl 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 Advanced Directive Advanced Directive Advanced Directive Advanced Directive Advanced Directive Advanced Directive Advanced Directive Advanced Directive Advanced Directive Advanced Directive Advanced Directive Advanced Directive Advanced Directive
--- OUTSIDE RECORDS SUMMARY | 2023-02-20 21:42 | External Medical Summary | Summary of Care ---
Author Name Unknown Organization [place] [address] Care Team Providers Care Finished Hardware Erector Name Role Phone Armani Hough MD Primary Care Provider + [phone] Encounter Details Date Type Department Care Team [...] Lipid Taxonomy. Other chronic sinusitis 10/17/19 18 Lead Recreation Assistant's cramp 03/28/2019 documented as of this encounter [...] 03/19/2021 Office Visit Orthopedics Gigi Harrell, [address] [facility] [place] [address] [phone] 03/22/2021 Office Visit [facility]at[facility] [address] [facility] [address] [phone] 06/28/2021 Office Visit Family Medicine Armani Hough MD [address] [place] [address] [place] [address] [phone] 01/21/2022 Office Visit Neurology Lynn Hoover MD [address] [place] [address] [phone] Health Maintenance Due Date Last Done Comments [...] Documents on File Type Date Recorded Patient Doper Expl anation Advanced Directive Advanced Directive Advanced [...]
--- OUTSIDE RECORDS SUMMARY | 2023-02-20 21:42 | External Medical Summary | Summary of Care ---
Author Name Unknown Organization [place] [address] Care Team Providers Care Lockstitch Collar Setter Name Role Phone Armani Hough MD Primary Care Provider + [phone] Reason for Visit * Reason Comments eRx-Medication Refill Encounter Details Date Type Department Care Team Description 10/31/2020 Refill Neurology [facility] [address] [place] [address] Reinaldo Hoover MD [address] [place] [address] [phone] Allergies No Known Active Allergiesdocumented as of this encounter (statuses as of 11/02/2020) Medications Medication Sig Dispensed Refills Start Date [...] zoster vac recomb adjuvanted (SHINGRIX) 50 MCG/0.5ML injectionIndicatio ns:Need for vaccination for zoster Inject 0.5 mL into a large muscle now and repeat dose in 60 to 180 days 1 Each 1 12/09/2019 Active FLUoxetine HCl 20 MG Oral Capsule (PROzac) Take 1 Cap by mouth. 0 Active Desonide 0.05 % External CreamIndications:P soriasis vulgaris Apply to pink patches on the face twice daily as needed for flares of psoriasis 15 g 3 03/17/2020 Active Fluocinonide 0.05 % External CreamIndications:A llergic contact dermatitis due to metals Apply to rash on the abdomen twice daily as needed for flares 30 g 0 04/21/2020 Active Metoprolol Tartrate 50 MG Oral Tablet (LOPRESSOR) TAKE ONE TABLET BY MOUTH TWICE A DAY REPLACES TOPROL XL FOR HEART RATE/ BLOOD PRESSURE 180 Tab 1 04/23/2020 Active Omeprazole 20 MG Oral Capsule Delayed Release (PriLOSEC)Indicati ons:Esophageal reflux TAKE 1 CAPSULE DAILY 90 Cap 3 05/03/2020 Active Sertraline HCl 25 MG Oral Tablet (Zoloft) Take 25 mg by mouth daily. 0 Active Indomethacin 50 MG Oral CapsuleIndications :Trochanteric bursitis of right hip Take 1 Cap by mouth 3 times a day as needed for Pain. with food 90 Cap 1 08/06/2020 Active Tacrolimus 0.1 % External Ointment (Protopic)Indicati ons:Other psoriasis APPLY TO PSORIASIS ON THE GENITALS TWICE DAILY NEEDED FOR FLARES. 60 g 2 09/01/2020 Active Atorvastatin Calcium 40 MG Oral Tablet (Lipitor) TAKE 1 TABLET BY MOUTH EVERYDAY AT BEDTIME 90 Tab 0 10/05/2020 Active Baclofen 10 MG Oral Tablet (Lioresal) TAKE 2 TABLETS BY MOUTH IN THE MORNING AND 1 TABLET IN THE EVENING 270 Tab 1 11/02/2020 Active Baclofen 10 MG Oral Tablet (LIORESAL) TAKE 2 TABLETS BY MOUTH IN THE MORNING AND 1 TABLET IN THE EVENING 270 Tab 1 03/04/2020 11/02/2020 Discontinued documented as of this encounter (statuses as of 11/02/2020) Active Problems Problem Noted Date Essential tremor 01/12/2018 Persistent insomnia 06/22/2015 History [...] 08/01/2003 Gastroesophageal reflux disease with eso phagitis 10/17/2001 Primary hypertension Tobacco use disorder Psoriasis Rosacea Hyperlipidemia LDL goal <130 documented as of this encounter (statuses as of 11/02/2020) Resolved Problems Problem Noted Date Resolved Date [...] Lipid Taxonomy. Other chronic sinusitis 10/17/19 18 Finance Insurance Manager's cramp 03/28/2019 documented as of this encounter (statuses as of 11/02/2020) Immunizations Name Administration Dates Next Due Influenza Virus Vaccine, Uns pecified Formulation 03/08/2018 [...] encounter Miscellaneous Notes * Telephone Encounter - Reinaldo Hoover MD - 11/02/2020 2:27 PM EDT Signed Prescriptions: Disp Refills Baclofen 10 MG Oral Tablet (Lioresal) 270 Tab1 Sig: TAKE 2 TABLETS BY MOUTH IN THE MORNING AND 1 TABLET IN THE EVENING Authorizing Provider: REINALDO HOOVER * Telephone Encounter - Yola CoffmanFrienditePlus - 11/02/2020 1:47 PM EDT Pending Prescriptions: Disp Refills Baclofen 10 MG Oral Tablet (Lioresal) [Ph*270 Tab1 Sig: TAKE 2 TABLETS BY MOUTH IN THE MORNING AND 1 TABLET IN THE EVENING * Telephone Encounter - Meenu Pelletier assistant sales center manager - 11/02/2020 10:51 AM EDT Pending Prescriptions: Disp Refills Baclofen 10 MG Oral Tablet (Lioresal) [Ph*270 Tab1 Sig: TAKE 2 TABLETS BY MOUTH IN THE MORNING AND 1 TABLET IN THE EVENING * Telephone Encounter - Meenu Pelletier assistant sales center manager - 11/02/2020 10:50 AM EDT Pending Prescriptions: Disp Refills Baclofen 10 MG Oral Tablet (Lioresal) [Ph*270 Tab1 Sig: TAKE 2 TABLETS BY MOUTH IN THE MORNING AND 1 TABLET IN THE EVENING Last Office/Telemedicine Visit: 01/20/2020 Next Office Visit: 01/21/2021 Scheduled Provider(s): Reinaldo Hoover MD If no future appointments scheduled, and last appointment is greater than a year ago, please schedule patient for a follow-up appointment Last date the medication was ordered: 03/04/20 Pharmacy: [id number] [facility] Is this request for a controlled substance?No Urine Drug Screen:No results found for this or any previous visit. Patient Phone Numbers Labs: Lab Results Component Value Date/Time CREAT 1.1 09/14/2020 CREAT 1.1 05/20/2015 10:03 AM POTASSIUM 5.3 (A) 09/14/2020 POTASSIUM 4.4 05/20/2015 10:03 AM TSH 1.90 07/14/2006 09:11 AM LDLCALC 117 (A) 09/14/2020 LDLCALC 114 12/13/2011 08:15 AM LDLDIRECT NOT APPLICABLE 12/13/2011 08:15 AM LDLCHOL 106 (A) 09/10/2013 ALT 33 09/08/2016 ALT 22 05/20/2015 10:03 AM HGBA1C 5.4 09/08/2016 documented in this encounter Plan of Treatment Upcoming Encounters Date Type Specialty Care Team Description 01/21/2021 Office Visit Neurology Reinaldo Hoover MD [address] [place] [address] [phone] 03/22/2021 Office Visit Dermatology Delilah Lynn PA-C [address] [place] [address] Health Maintenance Due Date Last Done Comments COVID-19 Vaccine (1) 1967 *DEPRESSION SCREENING,ANNUAL FOR PTS 12 AND OVER 10/13/2019 Zoster Vaccines (2 of 2) 05/25/2020 03/30/2020 DTaP,Tdap,and Td Vaccines (2 - Td) 12/12/2021 12/13/2011, 07/06/2006 COLONOSCOPY-EVERY 3 YRS AGES 18-100 02/11/2023 02/12/2020, 02/12/2020, 06/03/2016, Additional history exists DIABETES SCREEN EVERY 3 YRS-AGE 45 AND ABOVE 09/15/2023 09/14/2020, 01/06/2020, 09/12/2018, Additional history exists LIPID SCREEN EVERY 5 YRS-MEN AGE 35-75 09/14/2025 09/14/2020, 01/06/2020, 09/12/2018, Additional history exists Influenza Vaccine (FLU shot) Completed , 03/01/2019, 03/01/2019, Additional history exists Pneumococcal Vaccine: 65+ Years Completed 02/27/2020, 03/01/2019, 09/20/2018, Additional history exists MENINGOCOCCAL (MENACTRA/MENVEO) Aged Out No longer eligible based on patient's age to complete this topic documented as of this encounter Implants Not on filedocumented as of this encounter Advance Directives Documents on File Type Date Recorded Patient Special Deputy Sheriff Expl 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 Advanced Directive Advanced Directive Advanced Directive Advanced Directive Advanced Directive Advanced Directive Advanced Directive Advanced Directive Advanced Directive
--- OUTSIDE RECORDS SUMMARY | 2023-02-20 21:42 | External Medical Summary | Summary of Care ---
Author Name Unknown Organization [place] [address] Care Team Providers Care Color Shop Helper Name Role Phone Armani Hough MD Primary Care Provider + [phone] Encounter Details Date Type Department Care Team [...] Lipid Taxonomy. Other chronic sinusitis 10/17/19 18 Histology Specialist's cramp 03/28/2019 documented as of this [...] 03/19/2021 Office Visit Orthopedics Gigi Harrell, [address] [facility] [place] [address] [phone] 03/22/2021 Office Visit [facility]at[facility] Lynn [facility]C [address] [facility] [address] [phone] 06/28/2021 Office Visit Family Medicine Armani Hough MD [address] [place] [address] [place] [address] [phone] 01/21/2022 Office Visit Neurology Lynn Hoover MD [address] [place] [address] [phone] Health Maintenance Due Date Last Done Comments [...] Documents on File Type Date Recorded Patient Sas Programmer Expl anation Advanced Directive Advanced Directive Advanced [...]
--- OUTSIDE RECORDS SUMMARY | 2023-02-20 21:42 | External Medical Summary | Summary of Care ---
Author Name Unknown Organization [place] [address] Care Team Providers Care Medical Office Professional Instructor Name Role Phone Armani Hough MD Primary Care Provider + [phone] Encounter Details Date Type Department Care Team Description 10/07/2020 Orders Only Family Medicine [address] [address] Armani Hough MD [address] [place], [place] [address] [address] [phone] Allergies No Known Active Allergiesdocumented as of this encounter (statuses as of 10/07/2020) Medications Medication Sig Dispensed Refills Start Date [...] zoster vac recomb adjuvanted (SHINGRIX) 50 MCG/0.5ML injectionIndications: Need for vaccination for zoster Inject 0.5 mL into a large muscle now and repeat dose in 60 to 180 days 1 Each 1 12/09/2019 Active Baclofen 10 MG Oral Tablet (LIORESAL) TAKE 2 TABLETS BY MOUTH IN THE MORNING AND 1 TABLET IN THE EVENING 270 Tab 1 03/04/2020 Active FLUoxetine HCl 20 MG Oral Capsule [...] daily. 0 Active Indomethacin 50 MG Oral CapsuleIndications:Tr ochanteric bursitis of right hip Take 1 Cap by mouth 3 times a day as needed for Pain. with food 90 Cap 1 08/06/2020 Active Tacrolimus 0.1 % External Ointment (Protopic)Indications :Other psoriasis APPLY TO PSORIASIS ON THE GENITALS TWICE DAILY NEEDED FOR FLARES. 60 g 2 09/01/2020 Active Atorvastatin Calcium 40 MG Oral Tablet (Lipitor) TAKE 1 TABLET BY MOUTH EVERYDAY AT BEDTIME 90 Tab 0 10/05/2020 Active documented as of this encounter (statuses as of 10/07/2020) Active Problems Problem Noted Date Essential tremor [...] as of this encounter (statuses as of 10/07/2020) Resolved Problems Problem Noted Date Resolved Date [...] Lipid Taxonomy. Other chronic sinusitis 10/17/19 18 Milk Route Deliverer's cramp 03/28/2019 documented as of this encounter (statuses as of 10/07/2020) Immunizations Name Administration Dates Next Due Influenza [...] Care Team Description 01/21/2021 Office Visit Neurology Lynn Hoover MD [address] [facility] [place] [address] [phone] 03/22/2021 Office Visit Dermatology Delilah Lynn PA-C [address] [place] [address] [phone] Health Maintenance Due Date Last Done Comments COVID-19 Vaccine (1) 1967 *DEPRESSION SCREENING,ANNUAL FOR PTS 12 AND OVER 10/13/2019 Zoster Vaccines (2 of 2) 05/25/2020 03/30/2020 DTaP,Tdap,and Td Vaccines (2 - Td) 12/12/2021 12/13/2011, 07/06/2006 DIABETES SCREEN EVERY 3 YRS-AGE 45 AND ABOVE 01/05/2023 09/14/2020, 01/06/2020, 09/12/2018, Additional history exists COLONOSCOPY-EVERY 3 YRS AGES 18-100 02/11/2023 02/12/2020, 02/12/2020, 06/03/2016, Additional history exists LIPID SCREEN EVERY 5 YRS-MEN AGE 35-75 01/05/2025 09/14/2020, 01/06/2020, 09/12/2018, Additional history exists Influenza [...] Priority Date/Time Associated Diagnosis Comments CHEMISTRY-OUTSIDE Routine 09/14/2020 documented in this encounter Results * CHEMISTRY-OUTSIDE (09/14/2020) CREATININE-OUTSIDE LAB 1.1 0.6 - 1.5 MG/DL OUTSIDE LAB (SEE SCANNED REPORT) EGFR-OUTSIDE LAB 71 ML/MIN OUTSIDE LAB (SEE SCANNED REPORT) POTASSIUM-OUTSIDE LAB 5.3(A) 3.6 - 5.1 MMOL/L OUTSIDE LAB (SEE SCANNED REPORT) GLUCOSE-OUTSIDE LAB 104(A) 70 - 99 MG/DL OUTSIDE LAB (SEE SCANNED REPORT) HOURS FASTING OUTSIDE LAB (S EE SCANNED REPORT) TRIGLYCERIDES-OUTSIDE LAB 104 <150 MG/DL OUTSIDE LAB (SEE SCANNED REPORT) CHOLESTEROL-OUTSIDE LAB 194 <200 MG/DL OUTSIDE LAB (SEE SCANNED REPORT) HDL-OUTSIDE LAB 56.1 40.0 - 60.0 MG/DL OUTSIDE LAB (SEE SCANNED REPORT) CHOL/HDL RATIO-OUTSIDE LAB OUTSIDE LAB (SEE SCANNED REPORT) LDL (CALCULATED)-OUTSIDE LAB 117(A) 5 - 100 MG/DL OUTSIDE LAB (SEE SCANNED REPORT) LDL (DIRECT MEASURE)-OUTSIDE LAB OUTSIDE LAB (SEE SCANNED REPORT) HEMOGLOBIN, [id number] LAB OUTSIDE LAB (SEE SCANNED REPORT) PHOSPHORUS-OUTSIDE LAB OUTSIDE LAB (SEE SCANNED REPORT) PTH-OUTSIDE LAB OUTSIDE LAB (SEE SCANNED REPORT) MICROALBUMIN RATIO-OUTSIDE LAB OUTSIDE LAB (SEE SCANNED REPORT) PROTEIN, UA-OUTSIDE LAB OUTSIDE LAB (SEE SCANNED REPORT) HEMOGLOBIN-OUTSIDE LAB OUTSIDE LAB (SEE SCANNED REPORT) CHEMISTRY COMMENT-OUTSIDE LAB Comment:[facility]- PSA, LIPID, CMP OUTSIDE LAB (SEE SCANNED REPORT) Specimen Narrative Performed At OUTSIDE LAB (SEE SCANNED REPORT) documented in this encounter Advance Directives Documents on File Type Date Recorded Patient Bread Wrapper Expl 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 Advanced Directive Advanced Directive Advanced Directive Advanced Directive Advanced Directive Advanced Directive Advanced Directive Advanced Directive Advanced Directive
--- OUTSIDE RECORDS SUMMARY | 2023-02-20 21:42 | External Medical Summary ---
Author Name Unknown Address Unknown Organization [id number]:LABORATORY [facility] [place] - [address] [place] [address] Laboratory Report Ordering Provider Test Date Status KALLIE HANCOCK 12/09/2020 12:42:45 Final Observation Date Value Abnormality Reference (Units ) Status BUN 12/09/2020 12:42:45 14 6-20 (mg/dL) Final Creatinine 12/09/2020 12:42:45 1.0 0.6-1.2 (mg/dL) Final Glomerular filtration rate/1.73 sq M.predicted [Volume Rate/Area] in Serum, Plasma or Blood by Creatinine-based formula (CKD-EPI) 12/09/2020 12:42:45 76.6 >=60.0 (mL/min) Final Performing Location LABORATORY [facility] [place] - [address] [place] [address]
--- OUTSIDE RECORDS SUMMARY | 2023-02-20 21:42 | External Medical Summary ---
Author Name Unknown Address Unknown Organization [id number]:[facility] [place] [address] [place] [address] Laboratory Report Ordering Provider Test Date Status KALLIE HANCOCK 12/09/2020 12:42:45 Final Observation Date Value Abnormality Reference (Units ) Status Albumin 12/09/2020 12:42:45 4.7 3.8-5.0 (g/dL) Final Sex Hormone Binding Globulin 12/09/2020 12:42:45 40 12-91 (nmol/L) Final Testosterone [Mass/volume] in Serum or Plasma 12/09/2020 12:42:45 530.8 193.0-740.0 (ng/dL) Final Free Testosterone, calculated 12/09/2020 12:42:45 95.5 35.0-130.0 (pg/mL) Final Bioavailable Testosterone, calculated 12/09/2020 12:42:45 243.7 79.0-335.0 (ng/dL) Final Performing Location LAB[facility]ORY [facility] [place] - [address] [place] [id number]
--- OUTSIDE RECORDS SUMMARY | 2023-02-20 21:42 | External Medical Summary ---
Author Name Unknown Address Unknown Organization [id number]:[facility] [place] [address] [facility] [address] Laboratory Report Ordering Provider Test Date Status KALLIE HANCOCK 12/09/2020 12:42:45 Final Observation Date Value Abnormality Reference (Units ) Status SYNC LEUKOCYTES IN BLOOD BY AUTOMATED COUNT 12/09/2020 12:42:45 7.10 4.00-10.80 (K/uL) Final Segs 12/09/2020 12:42:45 62.0 40.0-75.0 (%) Final Lymphs % 12/09/2020 12:42:45 22.4 18.0-42.0 (%) Final Monos 12/09/2020 12:42:45 11.5 Above high normal 1.0-11.0 (%) Final Eosinophils 12/09/2020 12:42:45 3.0 0.0-6.0 (%) Final Basos 12/09/2020 12:42:45 0.4 0.0-2.0 (%) Final Immature Granulocyte, Percent 12/09/2020 12:42:45 0.7 0.0-2.0 (%) Final Absolute Segs 12/09/2020 12:42:45 4.40 1.80-7.70 (K/uL) Final Lymphs, absolute 12/09/2020 12:42:45 1.59 1.00-4.80 (K/ul) Final Monos, Abs 12/09/2020 12:42:45 0.82 0.00-1.10 (K/uL) Final Eos, Abs 12/09/2020 12:42:45 0.21 0.00-0.70 (K/uL) Final Basos, Abs 12/09/2020 12:42:45 0.03 0.00-0.20 (K/uL) Final Immature Granulocytes, Number 12/09/2020 12:42:45 0.05 0.00-0.20 (K/uL) Final Performing Location [facility] [place] [facility] [place] [facility] [place] [address]
--- OUTSIDE RECORDS SUMMARY | 2023-02-20 21:42 | External Medical Summary | Summary of Care ---
Author Name Unknown Organization [place] [address] Care Team Providers Care Manager Servicing Name Role Phone Armani Hough MD Primary Care Provider + [phone] Reason for Visit * Reason Onset Date Comments Medication Administration 02/12/2021 Flu an d/or Pneumo Inj Encounter Details Date Type Department Care Team Description 02/12/2021 Immunization Ancillary [address] [place] [address] [place] [address] [place] [address] [phone] Need for prophylactic vaccination and inoculation against influenza Allergies No Known Active Allergiesdocumented as of this encounter (statuses as of 02/12/2021) Medications Medication Sig Dispensed Refills Start Date [...] as of this encounter (statuses as of 02/12/2021) Active Problems Problem Noted Date CKD (chronic [...] as of this encounter (statuses as of 02/12/2021) Resolved Problems Problem Noted Date Resolved Date [...] Lipid Taxonomy. Other chronic sinusitis 10/17/19 18 Tunnel Man's cramp 03/28/2019 documented as of this encounter (statuses as of 02/12/2021) Immunizations Name Administration Dates Next Due COVID-19 [...] as of this encounter Progress Notes * Marina Partida LPN - 02/12/2021 8:57 AM EDT Immunization Administration Documentation Time Out Procedure Performed: Yes Patient Identified (Ask Name/Date of ): Yes Does the patient have a fever greater than 101 degrees today? No Patient allergic to latex? No VFC Stock: No Immunization(s) verified: Yes, Immunization Name: Flu, VIS Sheet(s) given: Yes Verified Side and Site: Yes Verified Shot(s) with Parent(s)/Patient: Yes documented in this encounter Plan of Treatment Upcoming Encounters Date Type Specialty Care Team Description 03/22/2021 Office Visit Dermatology Delilah Lynn PA-C [address] [place] [address] [phone] 06/17/2021 Office Visit Family Medicine Armani Hough MD [address] [place] [address] [place] [address] [phone] 06/28/2021 Office Visit Family Medicine Armani Hough MD [address] [place] [address] [place] [address] 01/21/2022 Office Visit Neurology Lynn Hoover MD [address] [facility], [place] [id number] Health Maintenance Due Date Last Done Comments *DEPRESSION SCREENING,ANNUAL FOR PTS 12 AND OVER 10/13/2019 Influenza Vaccine (FLU shot) (#1) 2021 02/12/2021, 02/27/2020, 03/01/2019, Additional history exists DTaP,Tdap,and Td Vaccines [...] 08/10/2020, 07/13/2020 Zoster Vaccines Completed 12/16/2020, 03/30/2020 MENINGOCOCCAL (MENACTRA/MENVEO) Aged Out No longer eligible based on patient's age to complete this topic documented as of this encounter Implants Not on filedocumented as of this encounter Visit Diagnoses Diagnosis Need for prophylactic vaccination and inoculation against influenza documented in this encounter Advance Directives Documents on File Type Date Recorded Patient Tip Length Checker Expl anation Advanced Directive Advanced Directive Advanced [...]
--- OUTSIDE RECORDS SUMMARY | 2023-02-20 21:42 | External Medical Summary | Summary of Care ---
Author Name Unknown Organization [place] [address] Care Team Providers Care Operator Receptionist Name Role Phone Armani Hough MD Primary Care Provider + [phone] Encounter Details Date Type Department Care Team [...] Lipid Taxonomy. Other chronic sinusitis 10/17/19 18 Cable Television Technician's cramp 03/28/2019 documented as of this [...] 03/19/2021 Office Visit Orthopedics Gigi Harrell, [address] [facility] [place] [address] [phone] 03/22/2021 Office Visit [facility] Lynn [facility] [address] [facility] [address] [phone] 06/28/2021 Office Visit Family Medicine Armani Hough MD [address] [place] [address] [place] [address] [phone] 01/21/2022 Office Visit Neurology Lynn Hoover MD 200 [place] [address] [phone] Health Maintenance Due Date Last Done Comments [...] Documents on File Type Date Recorded Patient Machine Ceramic Coater Expl anation Advanced Directive Advanced Directive Advanced [...]
--- OUTSIDE RECORDS SUMMARY | 2023-02-20 21:42 | External Medical Summary ---
Author Name Unknown Address Unknown Organization K01:[facility] [place] [address] [place] [address] Laboratory Report Ordering Provider Test Date Status KALLIE HANCOCK 12/09/2020 12:42:45 Final Observation Date Value Abnormality Reference (Units ) Status TSH 12/09/2020 12:42:45 1.54 0.27-4.20 (uIU/mL) Final Performing Location [facility]ATORY [facility] - [address] [place] [address]
--- OUTSIDE RECORDS SUMMARY | 2023-02-20 21:42 | External Medical Summary | Summary of Care ---
Author Name Unknown Organization [place] [address] Care Team Providers Care Chain Dyer Name Role Phone Armani Hough MD Primary Care Provider + [phone] Reason for Visit * Reason Comments Return Neuro Encounter Details Date Type Department Care Team Description 01/21/2021 Office Visit Neurology [facility] [address] [place] [address] Lynn Hoover MD [address] [facility] [place] [address] [phone] Fitness/Wellness Director's cramp*; Essential tremor Allergies No Known Active Allergiesdocumented as of this encounter (statuses as of 01/21/2021) Medications Medication Sig Dispensed Refills Start Date [...] as of this encounter (statuses as of 01/21/2021) Active Problems Problem Noted Date CKD (chronic [...] as of this encounter (statuses as of 01/21/2021) Resolved Problems Problem Noted Date Resolved Date [...] Lipid Taxonomy. Other chronic sinusitis 10/17/19 18 Fitness/Wellness Director's cramp 03/28/2019 documented as of this encounter (statuses as of 01/21/2021) Immunizations Name Administration Dates Next Due COVID-19 [...] Reading Time Taken Comments Blood Pressure 140/80 01/21/2021 8:32 AM EDT Pulse 65 01/21/2021 8:32 AM EDT Temperature 35.4 C (95.8 F) 01/21/2021 8:32 AM ED T Respiratory Rate 18 01/21/2021 8:32 AM EDT Oxygen Saturation - - Inhaled Oxygen Concentration - - Weight 91.4 kg (201 lb 9.6 oz) 01/21/2021 8:32 A M EDT Height - - Body Mass Index 29.77 12/23/2020 6:00 PM EDT documented in this [...] Progress Notes * Lynn Hoover MD - 01/21/2021 8:53 AM EDT CLINIC NOTES [facility] [place] [place] [address] [facility] [place] [address] Cuong Li : 1955 NEUROLOGY OUTPATIENT NOTE 01/21/2021 HISTORY: The patient is referred for consultation by Dr. Hough, who will be receiving a copy of this note. 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 He has received the COVID vaccination He continues to take a fairly low dose of baclofen for his tremor and added adequately manage his tremor. In terms of his writing dystonia on his left he was never responsive to medications or I believe Botox and eventually switch handedness. The patient has taken in the past amantadine atenolol baclofen and gabapentin Keppra primidone propanolol and Artane No additional dystonia as have been noted. Patient had any change gait headaches new weakness new numbness. 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 GENERALIZED ANXIETY DIS F41.1 Major depressive disorder, single episode, moderate (HCC) F32.1 ADVANCE DIRECTIVE INFORMATION Raynaud's syndrome I73.00 Hyperlipidemia LDL goal <130 E78.5 History of squamous cell carcinoma Z85.89 History of basal cell carcinoma Z85.828 Persistent insomnia G47.00 Essential tremor G25.0 Trochanteric bursitis of right hip M70.61 CKD (chronic kidney disease), stage II N18.2 Past Surgical History: Procedure Laterality Date COLONOSCOPY W/ LESION REMOVAL, SNARE 10/15/2010 polyp x1, path shows adenomatous tissue repeat in 5 years COLONOSCOPY, DIAGNOSTIC (RECTUM) 06/03/2016 7,6,2 mm polyps ascending, 6,3 mm polyps transverse colon Repeat 3 years/COLONOSCOPY FLEXIBLE PROXIMAL DIAGNOSTIC performed by Antoinette Godinez MD at [facility] COLONOSCOPY, DIAGNOSTIC (RECTUM) 02/12/2020 2 adenomatous polyps in transverse colon, repeat 3 yrs / COLONOSCOPY FLEXIBLE PROXIMAL DIAGNOSTIC performed by Antoinette Godinez MD at [facility] CT LOWER EXTREMITY W CONTRAST Right [...] level: Not on file Occupational History 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 Employer: [email or web address] Social Needs Financial resource strain: Not on file Food insecurity Worry: Never true Inability: Never true Transportation needs Medical: Not on file Non-medical: Not on file Tobacco Use Smoking status: Former Smoker Packs/day: 0.25 Years: 40.00 Pack years: 10.00 Types: Cigarettes Quit date: 05/26/2014 Years since quittin.6 Smokeless tobacco: Never Used Tobacco comment: quit for 10 years then restarted Substance and Sexual Activity Alcohol use: Yes Alcohol/week: 5.0 standard drinks Types: 6 12 oz of beer per week Comment: occ Drug use: No Sexual activity: Yes Partners: Female Lifestyle Physical activity Days per week: Not on file Minutes per session: Not on file Stress: Not on file Relationships Social connections Talks on phone: Not on file Gets together: Not on file Attends orthodoxy service: Not on file Active member of club or organization: Not on file Attends meetings of clubs or organizations: Not on file Relationship status: Not on file Intimate partner violence Fear of current or ex partner: Not on file Emotionally abused: Not on file Physically abused: Not on file Forced sexual activity: Not on file Other Topics Concern Not on file Social History Narrative for 26 years. Two children in good health. 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 [employer] Vaping/E-Cigarette Use Vaping/E-Cigarette Substances Vaping/E-Cigarette Devices Family History Problem Relation Age of Onset Hypertension Father Hypertension Sister Hypertension Sister Hypertension Sister Hypertension Brother Cancer Aunt (Unspecified) Cancer Aunt (Unspecified) Arthritis Mother Arthritis Sister Diabetes Father Stroke Father Other (Tremors) None Other (Parkinson's Disease) None Current Outpatient Medications Medication Sig Dispense Refill Metoprolol Tartrate 25 MG Oral Tablet (Lopressor) one pill twice a day 180 Tab 1 Atorvastatin Calcium 40 MG Oral Tablet (Lipitor) TAKE 1 TABLET BY MOUTH EVERYDAY AT BEDTIME 90 Tab 1 Baclofen 10 MG Oral Tablet (Lioresal) TAKE 2 TABLETS BY MOUTH IN THE MORNING AND 1 TABLET IN THE EVENING 270 Tab 1 Tacrolimus 0.1 % External Ointment (Protopic) APPLY TO PSORIASIS ON THE GENITALS TWICE DAILY ASNEEDED FOR FLARES. 60 g 2 Omeprazole 20 MG Oral Capsule Delayed Release (PriLOSEC) TAKE 1 CAPSULE DAILY 90 Cap 3 Fluocinonide 0.05 % External Cream Apply to rash on the abdomen twice daily as needed for flares 30 g 0 Desonide 0.05 % External Cream Apply to pink patches on the face twice daily as needed for flares of psoriasis 15 g 3 FLUoxetine HCl 20 MG Oral Capsule (PROzac) Take 1 Cap by mouth. traZODone (DESYREL) 100 MG Tablet TAKE 1/2 TABLET DAILY AT BEDTIME 90 Tab 1 BuPROPion HCl ER, SR, 200 MG TB12 Take 200 mg by mouth 2 times a day. 1 twice daily 0 Cholecalciferol (VITAMIN D) 2000 UNITS Tablet Take 2,000 Units by mouth daily. Indications: at bedtime VIAGRA 100 MG PO TABS one as needed 6 Tab 5 LISINOPRIL 40 MG PO TABS Take by mouth. Indications: in am 90 Tab 3 Review of patient's allergies indicates: No Known Allergies REVIEW OF SYSTEMS: As above PHYSICAL EXAM: BP 140/80 | Pulse 65 | Temp 35.4 C (95.8 F) | Resp 18 | Wt 91.4 kg (201 lb 9.6 oz) | BMI 29.77 kg/m | BSA 2.11 m The patient is awake and alert speech and language are normal and affect is appropriate. There are no carotid bruits no heart murmurs heart is regular rate and rhythm. There is normal facial animation no facial masking normal blink frequency. The face is symmetric. No obvious head voice or jaw tremor are noted no resting tremor or cogwheel rigidity are noted on today's exam he did not develop a securities underwriter's cramp with writing with his dominant hand. There is mild tremor with intention. Gait and tandem are normal IMPRESSION: Mild essential tremor treated periodically with baclofen. Most recent liver function was normal. Continue baclofen. 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 Patient has switched handedness. Return yearly Lynn Hoover MD 01/21/2021 8:53 AM documented in this encounter Nursing Notes * Raquel Flores LPN - 01/21/2021 8:30 AM EDT Recheck dystonia documented in this encounter Plan of Treatment Upcoming Encounters Date Type Specialty Care Team Description 03/22/2021 Office [facility] [address] [facility] [address] [phone] 06/17/2021 Office Visit Family Medicine Armani Hough MD [address] [place] [address] [place] [address] [phone] 06/28/2021 Office Visit Family Medicine Armani Hough MD [address] [place] [address] [place] [address] [phone] 01/21/2022 Office Visit Neurology Lynn Hoover MD [address] [facility], [place] [address] [phone] Health Maintenance Due Date Last Done Comments *DEPRESSION SCREENING,ANNUAL FOR PTS 12 AND OVER 10/13/2019 Influenza Vaccine (FLU shot) (#1) 2021 02/27/2020, [...] as of this encounter Visit Diagnoses Diagnosis Fitness/Wellness Director's cramp- Primary Other somatoform disorders Essential tremor Essential and other specified forms of tremor documented in this encounter Advance Directives Documents on File Type Date Recorded Patient Male Model Expl 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 Advanced Directive Advanced Directive Advanced Directive Advanced Directive Advanced Directive Advanced Directive Advanced Directive Advanced Directive Advanced Directive Advanced Directive Advanced Directive Advanced Directive Advanced Directive Advanced Directive Advanced Directive Advanced Directive Advanced Directive"
--- OUTSIDE RECORDS SUMMARY | 2023-02-20 21:42 | External Medical Summary | Summary of Care ---
Author Name Unknown Organization [place] [address] Care Team Providers Care Surgical Services Tech Name Role Phone Armani Hough MD Primary Care Provider + [phone] Reason for Visit * Reason Onset Date Comments Appointment 12/09/2020 6 mon ret w/ PAP /Echo Encounter Details Date Type Department Care Team Description 12/09/2020 Telephone Family Medicine [address] [address] Armani Hough MD [address] [place], [place] [address] [address] [phone] Appointment (6 mon ret w/ PAP/Echo ) [...] Lipid Taxonomy. Other chronic sinusitis 10/17/19 18 Customer Advocate's cramp 03/28/2019 documented as of this [...] Neurology Lynn Hoover MD 200 [place] [address] [phone] 03/22/2021 Office Visit Dermatology Delilah Lynn PA-C [address] [place], [place] [address] Health Maintenance Due Date Last Done Comments [...] Documents on File Type Date Recorded Patient Retort Unloader Expl 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 Advanced Directive Advanced Directive Advanced Directive Advanced Directive Advanced Directive Advanced Directive Advanced Directive Advanced Directive Advanced Directive Advanced Directive Advanced Directive
--- OUTSIDE RECORDS SUMMARY | 2023-02-20 21:42 | External Medical Summary | Summary of Care ---
Author Name Unknown Organization [place] [address] Care Team Providers Care Ad Operations Intern Name Role Phone Armani Hough MD Primary Care Provider + [phone] Encounter Details Date Type Department Care Team [...] Lipid Taxonomy. Other chronic sinusitis 10/17/19 18 Packer Denture's cramp 03/28/2019 documented as of this encounter [...] 03/19/2021 Office Visit Orthopedics Gigi Harrell, [address] [facility] [place] [address] [phone] 03/22/2021 Office Visit Dermatology Delilah Lynn [facility]C [address] [facility] [address] [phone] 06/28/2021 Office Visit Family Medicine Armani Hough MD [address] [place] [address] [place] [address] [phone] 01/21/2022 Office Visit Neurology Lynn Hoover MD 200 [place] [address] [phone] Health Maintenance Due Date Last Done Comments [...] Documents on File Type Date Recorded Patient Merchandising Internship Expl anation Advanced Directive Advanced Directive Advanced [...]
--- OUTSIDE RECORDS SUMMARY | 2023-02-20 21:42 | External Medical Summary ---
Author Name Unknown Address Unknown Organization K01:[facility] [place] [address] [place] [address] Laboratory Report Ordering Provider Test Date Status SANTIKALLIE 12/09/2020 12:42:45 Final Observation Date Value Abnormality Reference (Units ) Status Vitamin B12 12/09/2020 12:42:45 510 232-1,24 5 (pg/mL) Final Performing Location [facility] [place] [address] [place] [address]
--- OUTSIDE RECORDS SUMMARY | 2023-02-20 21:42 | External Medical Summary | Summary of Care ---
Author Name Unknown Organization [place] [address] Care Team Providers Care National Flatbed Truck Driver Name Role Phone Armani Hough MD Primary Care Provider + [phone] Encounter Details Date Type Department Care Team [...] Lipid Taxonomy. Other chronic sinusitis 10/17/19 18 Preschool Assistant Director's cramp 03/28/2019 documented as of this [...] 03/19/2021 Office Visit Orthopedics Gigi Harrell, [address] [facility] [place] [address] [phone] 03/22/2021 Office Visit Dermatology [place] Lynn PA-C [address] [facility] [address] [phone] 06/28/2021 Office Visit Family Medicine Armani Hough MD [address] [place] [address] [place] [address] [phone] 01/21/2022 Office Visit Neurology Lynn Hoover MD 200 [place] [address] [phone] Health Maintenance Due Date Last Done Comments [...] Documents on File Type Date Recorded Patient Sewage Disposal Engineer Expl anation Advanced Directive Advanced Directive [...]
--- OUTSIDE RECORDS SUMMARY | 2023-02-20 21:42 | External Medical Summary | Summary of Care ---
Author Name Unknown Organization [place] [address] Care Team Providers Care Clinical Trial Leader Name Role Phone Armani Hough MD Primary Care Provider + [phone] Reason for Referral * Precert (Within 10 days (routine)) Status Reason Specialty Diagnoses / Procedures Referred By Contact Referred To Contact Pending Review Precert Cardiac Studies Diagnoses Primary hypertension Malaise and fatigue Procedures ECHO, COMPLETE (2D), TRANS-THORACIC Armani Hough MD [address] [place] [address] [place] [address] Electronically signed by Armani Hough MD at Reason for Visit * Reason Comments Re-Check Encounter Details Date Type Department Care Team Description 12/09/2020 Office Visit Family Medicine [address] [place] [address] Armani Hough MD [address] [place] [address] [place] [id number] CKD (chronic kidney disease), stage II*; Hyperlipidemia LDL goal <130; Primary hypertension; Malaise and fatigue Allergies No Known Active Allergiesdocumented as of this encounter (statuses as of 12/09/2020) Medications Medication Sig Dispensed Refills Start Date End Date Status LISINOPRIL 40 MG PO TABSIndications:in am Take by mouth. Indications: in am 90 Tab 3 12/13/2011 Active VIAGRA 100 MG PO TABSIndications:Imp otence of organic origin one as needed 6 Tab 5 04/26/2013 Active Cholecalciferol (VITAMIN D) 2000 UNITS TabletIndications:a t bedtime Take 2,000 Units by mouth daily. Indications: at bedtime 0 Active BuPROPion HCl ER, SR, 200 MG TB12 Take 200 mg by mouth 2 times a day. 1 twice daily 0 05/26/2016 Active traZODone (DESYREL) 100 MG TabletIndications:P ersistent insomnia TAKE 1/2 TABLET DAILY AT BEDTIME 90 Tab 1 04/17/2017 Active zoster vac recomb adjuvanted (SHINGRIX) 50 MCG/0.5ML injectionIndication s:Need for vaccination for zoster Inject 0.5 mL into a large muscle now and repeat dose in 60 to 180 days 1 Each 1 12/09/2019 Active FLUoxetine HCl 20 MG Oral Capsule (PROzac) Take 1 Cap by mouth. 0 Active Desonide 0.05 % External CreamIndications:Ps oriasis vulgaris Apply to pink patches on the face twice daily as needed for flares of psoriasis 15 g 3 03/17/2020 Active Fluocinonide 0.05 % External CreamIndications:Al lergic contact dermatitis due to metals Apply to rash on the abdomen twice daily as needed for flares 30 g 0 04/21/2020 Active Omeprazole 20 MG Oral Capsule Delayed Release (PriLOSEC)Indicatio ns:Esophageal reflux TAKE 1 CAPSULE DAILY 90 Cap 3 05/03/2020 Active Tacrolimus 0.1 % External Ointment (Protopic)Indicatio ns:Other psoriasis APPLY TO PSORIASIS ON THE GENITALS TWICE DAILY NEEDED FOR FLARES. 60 g 2 09/01/2020 Active Baclofen 10 MG Oral Tablet (Lioresal) TAKE 2 TABLETS BY MOUTH IN THE MORNING AND 1 TABLET IN THE EVENING 270 Tab 1 11/02/2020 Active amLODIPine Besylate 10 MG Oral Tablet (Norvasc)Indication s:CKD (chronic kidney disease), stage II,Primary hypertension Take 1 Tab by mouth daily. 90 Tab 3 12/09/2020 Active Atorvastatin Calcium 40 MG Oral Tablet (Lipitor)Indication s:Hyperlipidemia LDL goal <130 TAKE 1 TABLET BY MOUTH EVERYDAY AT BEDTIME 90 Tab 1 12/09/2020 Active Metoprolol Tartrate 50 MG Oral Tablet (LOPRESSOR) TAKE ONE TABLET BY MOUTH TWICE A DAY REPLACES TOPROL XL FOR HEART RATE/ BLOOD PRESSURE 180 Tab 1 04/23/2020 12/09/2020 Discontinued (Medication/ Dose Changed) Sertraline HCl 25 MG Oral Tablet (Zoloft) Take 25 mg by mouth daily. 0 12/09/2020 Discontinued (Patient preference/d iscontinuati on) Indomethacin 50 MG Oral CapsuleIndications: Trochanteric bursitis of right hip Take 1 Cap by mouth 3 times a day as needed for Pain. with food 90 Cap 1 08/06/2020 12/09/2020 Discontinued (Patient preference/d iscontinuati on) Atorvastatin Calcium 40 MG Oral Tablet (Lipitor) TAKE 1 TABLET BY MOUTH EVERYDAY AT BEDTIME 90 Tab 0 10/05/2020 12/09/2020 Discontinued (Refill) documented as of this encounter [...] Lipid Taxonomy. Other chronic sinusitis 10/17/19 18 Box Packer's cramp 03/28/2019 documented as of this encounter [...] Sign Reading Time Taken Comments Blood Pressure 124/82 12/09/2020 11:46 AM EDT Pulse 72 12/09/2020 11:46 AM EDT Temperature 36.4 C (97.5 F) 12/09/2020 11:46 AM E DT Respiratory Rate 16 12/09/2020 11:46 AM EDT Oxygen Saturation - - Inhaled Oxygen Concentration - - Weight 90.8 kg (200 lb 4 oz) 12/09/2020 11:46 AM EDT Height - - Body Mass Index 29.57 02/12/2020 8:01 AM EDT documented in this encounter Functional [...] Progress Notes * Armani Hough MD - 12/09/2020 12:07 PM EDT Cuong feels more fatigued. [facility]. His left ankle is swollen a bit. He feels more unsteady on his feet particularly with eyes closed. He feels his muscles are wastingaway or tearing. Denies nausea, vomiting, or diarrhea. He does not feel depressed, is ok with the meds for that, he says. Health Maintenance addressed. [facility]. Past Medical History: Diagnosis Date Avulsion of hamstring muscle, right, initial encounter 05/11/2017 Benign neoplasm of colon 10/15/2010 polyp x1, path shows adenomatous tissue repeat in 5 years Calcific tendonitis of right thigh 06/01/2017 CT Dyslipidemia, goal LDL below 160 Encounter for [...] right Trochanteric bursitis of right hip 06/10/2020 Box Packer's cramp Past Surgical History: Procedure Laterality Date COLONOSCOPY W/ LESION REMOVAL, SNARE 10/15/2010 polyp x1, path shows adenomatous tissue repeat in 5 years COLONOSCOPY, DIAGNOSTIC (RECTUM) 06/03/2016 7,6,2 mm polyps ascending, 6,3 mm polyps transverse colon Repeat 3 years/COLONOSCOPY FLEXIBLE PROXIMAL DIAGNOSTIC performed by Antoinette Godinez MD at [facility] COLONOSCOPY, DIAGNOSTIC (RECTUM) 02/12/2020 adenomatous polyps, repeat 3 yrs / COLONOSCOPY FLEXIBLE PROXIMAL DIAGNOSTIC performed by Antoinette Godinez MD at [facility]OSCOPY [facility] COLONOSCOPY, REMOVE LESION, W/SNARE N/A 02/12/2020 2 polyps transverse, repeat [address] LOWER EXTREMITY W CONTRAST Right 05/26/2017 complete avulsion right hamstring tendon with 3 cm gap, mild hip arthritis, calcific tendonitis right gluteus medius CT SINUSES WO CONTRAST 10/09/2009 chronic sinusitis MRI C SPINE W CONT 03/10/2014 severe [...] level: Not on file Occupational History 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 60 g 2 Omeprazole 20 MG Oral Capsule Delayed Release (PriLOSEC) TAKE 1 CAPSULE DAILY 90 Cap 3 Metoprolol Tartrate 50 MG Oral Tablet (LOPRESSOR) TAKE ONE TABLET BY MOUTH TWICE A DAY REPLACESTOPROL XL FOR HEART RATE/ BLOOD PRESSURE 180 Tab 1 Fluocinonide 0.05 % External Cream [...] mouth. Indications: in am 90 Tab 3 Atorvastatin Calcium 40 MG Oral Tablet (Lipitor) TAKE 1 TABLET BY MOUTH EVERYDAY AT BEDTIME 90 Tab 0 zoster vac recomb adjuvanted (SHINGRIX) 50 MCG/0.5ML injection Inject 0.5 mL into a large muscle now and repeat dose in 60 to 180 days 1 Each 1 Immunization History Administered Date(s) Administered COVID-19 mRNA, LNP-s, No Preserve, 2-Dose Series (Moderna) 07/13/2020, 08/10/2020 Influenza Virus Vaccine, Unspecified Formulation 03/08/2018 Pneumococcal Conjugate Vacc, 13 Valent (Prevnar) 12/18/2012, 09/20/2018 Pneumococcal Polysaccharide PPV23 (Pneumovax) 12/18/2008, 09/18/2013, 03/01/2019, 02/27/2020 Seasonal Influenza, Quadrivalent, No Preserve, 6 Mons & Above, IM 02/08/2018 Seasonal Influenza, Quadrivalent, No Preserve, IM 03/16/2015, 01/15/2016, 02/09/2017, 03/01/2019 Seasonal Influenza, Split, IIV3, With Preserve, Inj 05/08/2007, 01/06/2010, 02/17/2011, 02/16/2012, 01/24/2013, 01/07/2014, 03/01/2019 Seasonal Influenza, Trivalent, Adjuvanted, 65+ yrs 02/27/2020 TD - Tetanus/Diptheria (ADULT) 07/06/2006 TDAP (age 10 and older)(Boostrix) 12/13/2011 Zoster Vaccine Recombinant (Shingrix) 03/30/2020 Results for orders placed or performed in [...] orders placed or performed in visit on 07/14/06 BASIC METAB PANEL Result Value Ref Range BUN 20 6 - 20 mg/dL Creatinine 1.1 0.7 - 1.5 mg/dL Sodium 135 135 - 146 mmol/L Potassium 4.4 3.5 - 5.1 mmol/L Chloride 100 98 - 111 mmol/L CO2 27 22 - 32 mmol/L Glucose 101 70 - 120 mg/dL Anion Gap 8 7 - 15 mEq/L Calcium 9.6 8.3 - 10.5 mg/dL Estimated Glomerular Filtration Rate >60.0 >60.0 mL/min He [facility] O: Blood pressure 124/82, pulse 72, temperature 36.4 C (97.5 F), temperature source Tympanic, resp. rate 16, weight 90.8 kg (200 lb 4 oz). General appearance: well developed, well nourished and in no acute distress. Head normocephalic andatraumatic. No facial asymmetry. Eye exam; PEERLA, EOMI. No scleral icterus or nystagmus. Conjunctiva are pink and not injected. Oropharynx: no exudate, no pharyngeal inflammation or post nasal drip.The palate is free of lesions and the uvula is normal. . Trachea is in the midline. Neck supple with no adenopathy or thyromegaly. No carotid bruits. Chest expands equally and is symmetrical with normal AP diameter. Lungs clear, with no wheezes, rales, or rhonchi. Heart: S1 and S2 normal. PMI not obviously displaced. Heart regular, no murmurs, gallops,clicks or rubs. No CVA tenderness. No calf swelling or tenderness. No pedal edema. No skin rashes. Extremities unremarkable. A: CKD (chronic kidney disease), stage II (Primary) - CBC WITH WBC DIFFERENTIAL AND ANEMIA REFLEX WORKUP; Future; Expected date: 12/09/2020 - amLODIPine Besylate 10 MG Oral Tablet (Norvasc); Take 1 Tab by mouth daily. Hyperlipidemia LDL goal <130 - CBC WITH WBC DIFFERENTIAL AND ANEMIA REFLEX WORKUP; Future; Expected date: 12/09/2020 - Atorvastatin Calcium 40 MG Oral Tablet (Lipitor); TAKE 1 TABLET BY MOUTH EVERYDAY AT BEDTIME Primary hypertension - amLODIPine Besylate 10 MG Oral Tablet (Norvasc); Take 1 Tab by mouth daily. - COMPREHENSIVE METABOLIC PANEL; Future; Expected date: 12/09/2020 - TESTOSTERONE: TOTAL, FREE AND BIOAVAILABLE; Future; Expected date: 12/09/2020 - ECHO, COMPLETE (2D), TRANS-THORACIC; Future; Expected date: 12/16/2020 Malaise and fatigue - CBC WITH WBC DIFFERENTIAL AND ANEMIA REFLEX WORKUP; Future; Expected date: 12/09/2020 - TSH WITH FREE T4 IF INDICATED; Future; Expected date: 12/09/2020 - SYPHILIS ANTIBODY SCREEN WITH REFLEX TO RPR; Future; Expected date: 12/09/2020 - VITAMIN B12; Future; Expected date: 12/09/2020 - COMPREHENSIVE METABOLIC PANEL; Future; Expected date: 12/09/2020 - ECHO, COMPLETE (2D), TRANS-THORACIC; Future; Expected date: 12/16/2020 Stop the metoprolol xl Follow Up: Return in about 6 months (around 06/11/2021). * Abdulaziz Fisher, Medical Student - 12/09/2020 11:59 AM EDT Patient agreed to student observation during talk/examination. Subjective: Cuong Li is a 65 year old male. Chief Complaint Patient presents with Re-Check HPI: The patient presents to the office today feeling tired, drained, and having lack of energy for the last few weeks. He denies being in a depressed mood and states that he has good appetite and sleeping well. He has also noticed that he has been "weaving around" a lot for last 6 months; he sways around and feels like he is going to fall and needs to catch something. This especially happens when he closes his eyes. When this occurs, he feels as though the room is spinning. He denies headaches, lightheadedness, fever, changes in vision, and any recent travel or tick bites. He also states that his arm muscles are losing mass and strength -- feels like his B/L biceps muscles are going to tear off when holding something heavy like a gallon of milk. This has been going on for 2 months. He also reports pain with palpation in the L medial malleolus and some swelling Patient was last prescribed Indomethacin for hip pain, however, he discontinued it since it was causing stomach pain. He has had a lumbar spinal fusion 6 years ago and his hip pain started 4-5 years ago. The hip pain only occurs when he is walking and active; he rates the pain when walking a 9/10. When he stops walking the pain is relieved. 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 GENERALIZED ANXIETY DIS F41.1 Major depressive disorder, single episode, moderate (HCC) F32.1 ADVANCE DIRECTIVE INFORMATION Raynaud's syndrome I73.00 Hyperlipidemia LDL goal <130 E78.5 History of squamous cell carcinoma Z85.89 History of basal cell carcinoma Z85.828 Persistent insomnia G47.00 Essential tremor G25.0 Current Outpatient Medications Medication Sig Dispense Refill Baclofen 10 MG Oral Tablet (Lioresal) TAKE 2 TABLETS BY MOUTH IN THE MORNING AND 1 TABLET IN THE EVENING 270 Tab 1 Tacrolimus 0.1 % External Ointment (Protopic) APPLY TO PSORIASIS ON THE GENITALS TWICE DAILY ASNEEDED FOR FLARES. 60 g 2 Omeprazole 20 MG Oral Capsule Delayed Release (PriLOSEC) TAKE 1 CAPSULE DAILY 90 Cap 3 Metoprolol Tartrate 50 MG Oral Tablet (LOPRESSOR) TAKE ONE TABLET BY MOUTH TWICE A DAY REPLACESTOPROL XL FOR HEART RATE/ BLOOD PRESSURE 180 Tab 1 Fluocinonide 0.05 % External Cream [...] mouth. Indications: in am 90 Tab 3 Atorvastatin Calcium 40 MG Oral Tablet (Lipitor) TAKE 1 TABLET BY MOUTH EVERYDAY AT BEDTIME 90 Tab 0 zoster vac recomb adjuvanted (SHINGRIX) 50 MCG/0.5ML injection Inject 0.5 mL into a large muscle now and repeat dose in 60 to 180 days 1 Each 1 Review of patient's allergies indicates: No Known Allergies Objective: BP 124/82 | Pulse 72 | Temp 36.4 C (97.5 F) (Tympanic) | Resp 16 | Wt 90.8 kg (200 lb 4 oz) | BMI 29.57 kg/m | BSA 2.1 m EXAM: General: no acute distress and stated age Head: normocephalic, no masses, lesions, tenderness or abnormalities Eyes: conjunctiva are pink and non-injected, sclera clear Neck: supple, no adenopathy, no bruits Chest: normal shape and normal respiratory effort Lungs: clear to auscultation and percussion Cardiac Exam: - regular rate & rhythm, no murmurs gallops or rubs - normal S1, normal S2 Pulses: 2(+) throughout Abdomen: abdomen soft, non-tender Musculoskeletal: no gait disturbance, pain with palpation over L medial malleolus with some edema; Pain with abduction and flexion of L UE. 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 Follow up: 6 months Abdulaziz Fisher, Medical Student documented in this encounter Nursing Notes * Marina Partida LPN - 12/09/2020 11:44 AM EDT 6 month recheck Run down past few weeks. Doesn't want to do anything. 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 No ambition. documented in this encounter Plan of Treatment Upcoming Encounters Date Type Specialty Care Team Description 01/21/2021 Office Visit Neurology Lynn Hoover MD [address] [place] [address] [phone] 03/22/2021 Office Visit Dermatology Delilah Lynn PA-C [address] [place] [address] [phone] Pending Results Name Type Priority Associated Diagnoses Date /Time CBC WITH WBC DIFFERENTIAL AND ANEMIA REFLEX WORKUP Lab Routine CKD (chronic kidney disease), stage II Hyperlipidemia LDL goal <130 Malaise and fatigue 12/09/2020 12:42 PM EDT TSH WITH FREE T4 IF INDICATED Lab Routine Malaise and fatigue 12/09/2020 12:42 PM EDT SYPHILIS ANTIBODY SCREEN WITH REFLEX TO RPR Lab Routine Malaise and fatigue 12/09/2020 12:42 PM EDT VITAMIN B12 Lab Routine Malaise and fatigue 12/09/2020 12:42 PM EDT COMPREHENSIVE METABOLIC PANEL Lab Routine Primary hypertension Malaise and fatigue 12/09/2020 12:42 PM EDT TESTOSTERONE: TOTAL, FREE AND BIOAVAILABLE Lab Routine Primary hypertension 12/09/2020 12:42 PM EDT Scheduled Orders Name Type Priority Associated Diagnoses Orde r Schedule CBC WITH WBC DIFFERENTIAL AND ANEMIA REFLEX WORKUP Lab Routine CKD (chronic kidney disease), stage II Hyperlipidemia LDL goal <130 Malaise and fatigue Expected: 12/09/2020 (Approximate), Expires: 12/09/2021 TSH WITH FREE T4 IF INDICATED Lab Routine Malaise and fatigue Expected: 12/09/2020 (Approximate), Expires: 12/09/2021 SYPHILIS ANTIBODY SCREEN WITH REFLEX TO RPR Lab Routine Malaise and fatigue Expected: 12/09/2020 (Approximate), Expires: 12/09/2021 VITAMIN B12 Lab Routine Malaise and fatigue Expected: 12/09/2020 (Approximate), Expires: 12/09/2021 COMPREHENSIVE METABOLIC PANEL Lab Routine Primary hypertension Malaise and fatigue Expected: 12/09/2020 (Approximate), Expires: 12/09/2021 TESTOSTERONE: TOTAL, FREE AND BIOAVAILABLE Lab Routine Primary hypertension Expected: 12/09/2020 (Approximate), Expires: 12/09/2021 ECHO, COMPLETE (2D), TRANS-THORACIC Echocardiology Routine Primary hypertension Malaise and fatigue Expected: 12/16/2020, Expires: 06/11/2021 Health Maintenance Due Date Last Done Comments [...] as of this encounter Visit Diagnoses Diagnosis CKD (chronic kidney disease), stage II- Primary Chronic kidney disease, Stage II (mild) Hyperlipidemia LDL goal <130 Other and unspecified hyperlipidemia Primary hypertension Unspecified essential hypertension Malaise and fatigue Other malaise and fatigue documented in this encounter Advance Directives Documents on File Type Date Recorded Patient [employer] Sheets Supervisor Expl 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 Advanced Directive Advanced Directive Advanced Directive Advanced Directive Advanced Directive Advanced Directive Advanced Directive Advanced Directive Advanced Directive Advanced Directive Advanced Directive
--- OUTSIDE RECORDS SUMMARY | 2023-02-20 21:42 | External Medical Summary | Summary of Care ---
Author Name Unknown Organization [place] [address] Care Team Providers Care Lead Oracle Developer Name Role Phone Armani Hough MD Primary Care Provider + [phone] Reason for Visit * Reason Comments Acute Encounter Details Date Type Department Care Team Description 02/18/2021 Office Visit Family Medicine [address] [id number] Jannie Carty PA-C [address] [place] [address] [place] [address] [phone] Right wrist pain*; Right foot pain Allergies No Known Active Allergiesdocumented as of this encounter (statuses as of 02/18/2021) Medications Medication Sig Dispensed Refills Start Date [...] as of this encounter (statuses as of 02/18/2021) Active Problems Problem Noted Date CKD (chronic [...] as of this encounter (statuses as of 02/18/2021) Resolved Problems Problem Noted Date Resolved Date [...] Lipid Taxonomy. Other chronic sinusitis 10/17/19 18 Electronic Engineering Draftsperson's cramp 03/28/2019 documented as of this encounter (statuses as of 02/18/2021) Immunizations Name Administration Dates Next Due COVID-19 [...] Sign Reading Time Taken Comments Blood Pressure 122/72 02/18/2021 10:39 AM EDT Pulse 76 02/18/2021 10:39 AM EDT Temperature 36.3 C (97.3 F) 02/18/2021 10:39 AM E DT Respiratory Rate 16 02/18/2021 10:39 AM EDT Oxygen Saturation - - Inhaled Oxygen Concentration - - Weight 91.3 kg (201 lb 4 oz) 02/18/2021 10:39 AM EDT Height - - Body Mass Index 29.72 12/23/2020 6:00 PM EDT documented in this [...] Progress Notes * Jannie Carty PA-C - 02/18/2021 10:43 AM EDT Nursing Notes: Marina Partida LPN 02/18/21 1042 Sign at exiting of workspace C/o right wrist pain and swelling Top of right foot with lump. Painful if he hits it. Pt here today with pain at right wrist pain/swelling. Pt states that it started about 2 months ago.It was sore and it has gotten worse over the past week or so. Pt denies injury or doing anything out of the ordinary. Pt denies redness, hot to touch. Pain has pain at rest but worse with movements. 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 Pt has tried ibuprofen with little relief. Pt also has a lump at top of right foot. It is slightly painful. No injury. Review of patient's allergies indicates: No Known [...] DAILY NEEDED FOR FLARES. 60 g 2 Omeprazole 20 MG Oral Capsule Delayed Release (PriLOSEC) TAKE 1 CAPSULE DAILY 90 Cap 3 Fluocinonide 0.05 % External Cream Apply to rash on the abdomen twice daily as needed for flares 30g 0 Desonide 0.05 % External Cream Apply [...] mouth. 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 rate 16, weight 91.3 kg (201 lb 4 oz). GENERAL: alert, healthy and no distress EXTREMITIES: right wrist - no pain with palpation at dorsal aspect of wrist. No edema, no erythema,no ecchymosis. Pain with ROM at wrist. Right foot: bony protrusion at top of foot. Mild pain with palpation. No pain with ROM at foot. A:Right wrist pain (Primary) - XR WRIST 3 OR MORE VIEWS Right foot pain - XR FOOT 3 OR MORE VIEWS Will xray wrist and foot. Pt has prednisone at home and will try this. Any questions/problems, please call. If anything changes, worsens, develops new sx, please call ANA. Follow Up: Return if symptoms worsen or fail to improve. Jannie Carty PA-C documented in this encounter Nursing Notes * Marina Partida LPN - 02/18/2021 10:37 AM EDT C/o right wrist pain and swelling Top of right foot with lump. Painful if he hits it. documented in this encounter Plan of Treatment Upcoming Encounters Date Type Specialty Care Team Description 03/22/2021 Office Visit [facility] [address] [facility] [address] 06/17/2021 Office Visit Family Medicine Armani Hough MD [address] [place] [address] [place] [address] [phone] 06/28/2021 Office Visit Family Medicine Armani Hough MD [address] [place] [address] [place] [address] [phone] 01/21/2022 Office Visit Neurology Lynn Hoover MD [address] [place] [address] [phone] Pending Results Name Type Priority Associated Diagnoses Date /Time XR WRIST 3 OR MORE VIEWS Medical Imaging Routine Right wrist pain 02/18/2021 11:03 AM EDT XR FOOT 3 OR MORE VIEWS Medical Imaging Routine Right foot pain 02/18/2021 11:03 AM EDT Health Maintenance Due Date Last Done Comments [...] of this encounter Visit Diagnoses Diagnosis Right wrist pain- Primary Pain in joint, forearm Right foot pain Pain in limb documented in this encounter Advance Directives Documents on File Type Date Recorded Patient Technician Plant And Maintenance Expl anation Advanced Directive Advanced Directive Advanced [...]
--- OUTSIDE RECORDS SUMMARY | 2023-02-20 21:42 | External Medical Summary | Summary of Care ---
Author Name Unknown Organization [place] [address] Care Team Providers Care Certified Pedorthotist Name Role Phone Armani Hough MD Primary Care Provider + [phone] Reason for Visit * Reason Onset Date Comments Advice 12/18/2020 Encounter Details Date Type Department Care Team Description 12/18/2020 Telephone Family Medicine [address] [phone] Armani Hough MD [address] [place], [place] [address] [id number] Advice Allergies No Known Active Allergiesdocumented as of this encounter (statuses as of 12/18/2020) Medications Medication Sig Dispensed Refills Start Date [...] as of this encounter (statuses as of 12/18/2020) Active Problems Problem Noted Date CKD (chronic [...] as of this encounter (statuses as of 12/18/2020) Resolved Problems Problem Noted Date Resolved Date [...] Lipid Taxonomy. 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 Pt is aware if symptoms get worse to contact ER Pt is scheduled for Monday12/21/20 with for follow of issue at 720pm Left pt a VM on Identified mail box with date/time of office visit * Telephone Encounter - Amber Raymundo OSA - 12/18/2020 11:12 AM EDT Reason for patient's call: medication giving patient some problems, feet are swelling, heart feels like it's racing mid 80-90's. Feels like it's thumping all the time Caller was transferred to [facility] at the nurse line. documented in this encounter Plan of Treatment Upcoming Encounters Date Type Specialty Care Team Description 12/21/2020 Office Visit Family Medicine Nathan Graham MD [address] [place] [address] [place] [address] [phone] 01/21/2021 Office Visit Neurology [place] Hoover MD [address] [place], [place] [address] [address] [phone] 03/22/2021 Office Visit Dermatology Delilah Lynn PA-C [address] [place], [place] [phone] 06/17/2021 Office Visit Family Medicine Armani Hough MD [address] [place] [address] [place] [address] [phone] Health Maintenance Due Date Last Done Comments [...] Documents on File Type Date Recorded Patient Inspector Subassemblies Expl 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 Advanced Directive Advanced Directive Advanced Directive Advanced Directive Advanced Directive Advanced Directive Advanced Directive Advanced Directive Advanced Directive Advanced Directive Advanced Directive Advanced Directive Advanced Directive Advanced Directive
--- OUTSIDE RECORDS SUMMARY | 2023-02-20 21:42 | External Medical Summary | Summary of Care ---
Author Name Unknown Organization [place] [address] Care Team Providers Care Fountain Brush Assembler Name Role Phone Armani Hough MD Primary Care Provider + [phone] Reason for Visit * Reason Comments Outpatient Testing Encounter Details Date Type Department Care Team Description 12/09/2020 Laboratory Laboratory, [address] [place] [id number] [address] [place] [address] [phone] CKD (chronic kidney disease), stage II; Hyperlipidemia LDL goal <130; Malaise and fatigue; Primary hypertension Allergies No Known Active Allergiesdocumented as of [...] Lipid Taxonomy. Other chronic sinusitis 10/17/19 18 Teletype Mechanic's cramp 03/28/2019 documented as of this [...] 01/21/2021 Office Visit Neurology [place] Hoover MD [address] [place] [address] [place] [address] [phone] 03/22/2021 Office Visit Dermatology Delliah Lynn PA-C [address] [place] [address] [phone] Pending Results Name Type Priority Associated Diagnoses [...] Routine Primary hypertension 12/09/2020 12:42 PM EDT ANEMIA CBC Lab Routine CKD (chronic kidney disease), stage II Hyperlipidemia LDL goal <130 Malaise and fatigue 12/09/2020 12:42 PM EDT AUTOMATED ANALYZER WBC DIFFERENTIAL Lab Routine CKD (chronic kidney disease), stage II Hyperlipidemia LDL goal <130 Malaise and fatigue 12/09/2020 12:42 PM EDT ANEMIA REFLEX CHEMISTRY HOLD Lab Routine CKD (chronic kidney disease), stage II Hyperlipidemia LDL goal <130 Malaise and fatigue 12/09/2020 12:42 PM EDT SYPHILIS ANTIBODY SCREEN Lab Routine Malaise and fatigue 12/09/2020 12:42 PM EDT Health Maintenance Due Date Last Done [...] Diagnoses Diagnosis CKD (chronic kidney disease), stage II Chronic kidney disease, Stage II (mild) Hyperlipidemia LDL goal <130 Other and unspecified hyperlipidemia Malaise and fatigue Other malaise and fatigue Primary hypertension Unspecified essential hypertension documented in this encounter Advance Directives Documents on File Type Date Recorded Patient Clipper Machine Operator Expl 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 Advanced Directive Advanced Directive Advanced Directive Advanced Directive Advanced Directive Advanced Directive Advanced Directive Advanced Directive Advanced Directive Advanced Directive Advanced Directive
--- OUTSIDE RECORDS SUMMARY | 2023-02-20 21:42 | External Medical Summary | Summary of Care ---
Author Name Unknown Organization [facility] [address] Care Team Providers Care Office Helper Clerical Name Role Phone Armani Hough MD Primary Care Provider + [phone] Reason for Visit * Reason Comments Re-Check Encounter Details Date Type Department Care Team Description 12/23/2020 Office Visit Family Medicine [address] [phone] Armani Hough MD [address] [place] [address] [place] [id number] Primary hypertension* Allergies No Known Active Allergiesdocumented as of this encounter (statuses as of 12/23/2020) Medications Medication Sig Dispensed Refills Start Date [...] mouth. 0 Active Desonide 0.05 % External CreamIndications: Psoriasis vulgaris Apply to pink patches on the face twice daily as needed for flares of psoriasis 15 g 3 03/17/2020 Active Fluocinonide 0.05 % External CreamIndications: Allergic contact dermatitis due to metals Apply to rash on the abdomen twice daily as needed for flares 30 g 0 04/21/2020 Active Omeprazole 20 MG Oral Capsule Delayed Release (PriLOSEC)Indicat ions:Esophageal reflux TAKE 1 CAPSULE DAILY 90 Cap 3 05/03/2020 Active Tacrolimus 0.1 % External Ointment (Protopic)Indicat [...] a day 180 Tab 1 12/23/2020 Active zoster vac recomb adjuvanted (SHINGRIX) 50 MCG/0.5ML injectionIndicati ons:Need for vaccination for zoster Inject 0.5 mL into a large muscle now and repeat dose in 60 to 180 days 1 Each 1 12/09/2019 1 Discontinued(Brittney ent preference/discon tinuation) amLODIPine Besylate 10 MG Oral Tablet (Norvasc)Indicati ons:CKD (chronic kidney disease), stage II,Primary hypertension Take 1 Tab by mouth daily. 90 Tab 3 12/09/2020 1 Discontinued documented as of this encounter (statuses as of 12/23/2020) Active Problems Problem Noted Date CKD (chronic [...] as of this encounter (statuses as of 12/23/2020) Resolved Problems Problem Noted Date Resolved Date [...] Lipid Taxonomy. Other chronic sinusitis 10/17/19 18 Assembler Radio And Electrical's cramp 03/28/2019 documented as of this encounter (statuses as of 12/23/2020) Immunizations Name Administration Dates Next Due COVID-19 [...] Sign Reading Time Taken Comments Blood Pressure 118/76 12/23/2020 6:00 PM EDT Pulse 68 12/23/2020 6:00 PM EDT Temperature 36 C (96.8 F) 12/23/2020 6:00 PM EDT Respiratory Rate 16 12/23/2020 6:00 PM EDT Oxygen Saturation - - Inhaled Oxygen Concentration - - Weight 90.3 kg (199 lb) 12/23/2020 6:00 PM EDT Height 175.3 cm (5' 9") 12/23/2020 6:00 PM EDT Body Mass Index 29.39 12/23/2020 6:00 PM EDT documented in this [...] Progress Notes * Armani Hough MD - 12/23/2020 6:21 PM EDT Cuong started having more energy but then heart started pounding, he was feeling more shaky, and legs are puffing out. Blood pressure at home ok with pulses up in the 80s. Past Medical History: Diagnosis Date Avulsion of [...] right Trochanteric bursitis of right hip 06/10/2020 Assembler Radio And Electrical's cramp Past Surgical History: Procedure Laterality Date COLONOSCOPY W/ LESION REMOVAL, SNARE 10/15/2010 polyp x1, path shows adenomatous tissue repeat in 5 years COLONOSCOPY, DIAGNOSTIC (RECTUM) 06/03/2016 7,6,2 mm polyps ascending, 6,3 mm polyps transverse colon Repeat 3 years/COLONOSCOPY FLEXIBLE PROXIMAL DIAGNOSTIC performed by Antoinette Godinez MD at ENDOSCOPY [facility] COLONOSCOPY, DIAGNOSTIC (RECTUM) 02/12/2020 2 adenomatous polyps in transverse colon, repeat 3 yrs / COLONOSCOPY FLEXIBLE PROXIMAL DIAGNOSTIC performed by Antoinette Godinez MD at ENDOSCOPY [facility] CT LOWER EXTREMITY W CONTRAST Right [...] ABDOMEN LIMITED 05/30/2012 normal, no kidney stones Current Outpatient Medications Medication Sig Dispense Refill amLODIPine Besylate 10 MG Oral Tablet (Norvasc) Take 1 Tab by mouth daily. 90 Tab 3 Atorvastatin Calcium 40 MG [...] mouth. Indications: in am 90 Tab 3 O: Blood pressure 118/76, pulse 68, temperature 36 C (96.8 F), temperature source Tympanic, resp. rate 16, height 1.753 m (5' 9"), weight 90.3 kg (199 lb). General appearance: well developed, well nourished and in no acute distress. Neck is supple withoutadenopathy or thyromegaly. Chest is symmetrical and moves normally. The lungs are clear without wheezes, rales, rhonchi or rubs, and the heart is regular without murmurs or gallops, or ectopy. PMI not displaced. A: Primary hypertension (Primary) Got back to just 25 mg metoprolol, stop the amlodipine because of the edema documented in this encounter Nursing Notes * Marta Perez RN - 12/23/2020 6:05 PM EDT Pt here for check up, had some med changes last time, he is off the metoprolol, but felt better when he was taking it. Feels shaky now documented in this encounter Plan of Treatment Upcoming Encounters Date Type Specialty Care Team Description 01/21/2021 Office Visit Neurology Lynn Hoover MD [address] [place] [address] [phone] 03/22/2021 Office Visit Dermatology Delilah Lynn PA-C [address] [place], [place] [id number] 06/17/2021 Office Visit Family Medicine Amrani Hough MD [address] [place] [address] [place] [address] [phone] 06/28/2021 Office Visit Family Medicine Armani Hough MD [address] [place] [address] [place] [address] [phone] Health Maintenance Due Date Last Done Comments [...] Diagnosis Primary hypertension- Primary Unspecified essential hypertension documented in this encounter Advance Directives Documents on File Type Date Recorded Patient Ultrasonic Cleaner Expl anation Advanced Directive Advanced Directive Advanced [...]
--- OUTSIDE RECORDS SUMMARY | 2023-02-20 21:42 | External Medical Summary ---
Author Name Unknown Address Unknown Organization [id number]:[facility] [place] [facility] [address] [place] [address] Laboratory Report Ordering Provider Test Date Status KALLIE HANCOCK 12/09/2020 12:42:45 Final Observation Date Value Abnormality Reference (Units ) Status WBC, Total 12/09/2020 12:42:45 7.10 4.00-10.8 0 (K/uL) Final RBC 12/09/2020 12:42:45 4.52 4.50-5.25 (M/uL) Final Hemoglobin 12/09/2020 12:42:45 14.9 14.0-16.8 (g/dL) Final Performing Location LAB[facility]ATORY [facility] - [address] [place] [address]
--- OUTSIDE RECORDS SUMMARY | 2023-02-20 21:42 | External Medical Summary | Summary of Care ---
Author Name Unknown Organization [place] [address] Care Team Providers Care Financial Foundations Representative Name Role Phone Armani Hough MD Primary Care Provider + [phone] Reason for Visit * Reason Onset Date Comments Advice 02/10/2021 Encounter Details Date Type Department Care Team Description 02/10/2021 Telephone Family Medicine [address] [address] Armani Hough MD [address] [place], [place] [address] [address] [phone] Advice Allergies No Known Active Allergiesdocumented as of this encounter (statuses as of 02/10/2021) Medications Medication Sig Dispensed Refills Start Date [...] as of this encounter (statuses as of 02/10/2021) Active Problems Problem Noted Date CKD (chronic [...] as of this encounter (statuses as of 02/10/2021) Resolved Problems Problem Noted Date Resolved Date [...] Lipid Taxonomy. Other chronic sinusitis 10/17/19 18 Pocket Flap Creasing Machine Operator's cramp 03/28/2019 documented as of this encounter (statuses as of 02/10/2021) Immunizations Name Administration Dates Next Due COVID-19 [...] encounter Miscellaneous Notes * Telephone Encounter - Tamara Castano LPN - 02/10/2021 1:00 PM EDT Call dropped. Left message that patient can have vaccines together. * Telephone Encounter - Chaya Ruiz OSA - 02/10/2021 12:52 PM EDT Reason for patient's call: Patient calling concerning flu and shingles vaccine Caller was transferred to [facility] at the nurse line. documented in this encounter Plan of Treatment Upcoming Encounters Date Type Specialty Care Team Description 02/12/2021 Immunization [facility] [address] [place] [address] [phone] 03/22/2021 Office Visit Dermatology Delilah Lynn PA-C [address] [place], [place] [phone] 06/17/2021 Office Visit Family Medicine Armani Hough MD [address] [place] [address] [place] [address] 06/28/2021 Office Visit Family Medicine Armani Hough MD [address] [place] [address] [place] [phone] 01/21/2022 Office Visit Neurology Lynn Hoover MD [address] [place] [phone] Health Maintenance Due Date Last Done Comments [...] Documents on File Type Date Recorded Patient Commodity Trader Expl anation Advanced Directive Advanced Directive Advanced [...]
--- OUTSIDE RECORDS SUMMARY | 2023-02-20 21:43 | External Medical Summary | Summary of Care ---
Author Name Unknown Organization [place] [address] Care Team Providers Care Bar Helper Name Role Phone Armani Hough MD Primary Care Provider + [phone] Encounter Details Date Type Department Care Team Description 08/03/2020 Telephone Orthopaedics [facility] [address] [facility] [place] [address] Gigi Harrell, [address] [facility] [place] [address] [phone] Allergies No Known Active Allergiesdocumented as of this encounter (statuses as of 08/03/2020) Medications Medication Sig Dispensed Refills Start Date End Date Status LISINOPRIL 40 MG PO TABSIndications:in am Take by mouth. Indications: in am 90 Tab 3 12/13/2011 Active VIAGRA 100 MG PO TABSIndications:Impoten ce of organic origin one as needed 6 Tab 5 04/26/2013 Active Cholecalciferol (VITAMIN D) 2000 UNITS TabletIndications:at bedtime Take 2,000 Units by mouth daily. Indications: at bedtime 0 Active BuPROPion HCl ER, SR, 200 MG TB12 Take 200 mg by mouth 2 times a day. 1 twice daily 0 05/26/2016 Active traZODone (DESYREL) 100 MG TabletIndications:Persi stent insomnia TAKE 1/2 TABLET DAILY AT BEDTIME 90 Tab 1 04/17/2017 Active tacrolimus (PROTOPIC) 0.1 % ointmentIndications:Oth er psoriasis Apply to psoriasis on the genitals twice daily as needed for flares. 60 g 2 08/28/2019 Active atorvaSTATin (LIPITOR) 40 MG Tablet TAKE 1 TABLET BY MOUTH AT BEDTIME 90 Tab 3 10/15/2019 Active zoster vac recomb adjuvanted (SHINGRIX) 50 MCG/0.5ML injectionIndications:Ne ed for vaccination for zoster Inject 0.5 mL into a large muscle now and repeat dose in 60 to 180 days 1 Each 1 12/09/2019 Active predniSONE 10 MG Oral Tablet (DELTASONE)Indications: Primary osteoarthritis of both hips TAKE 1 TABLET BY MOUTH EVERY DAY WITH FOOD 90 Tab 1 02/24/2020 Active Baclofen 10 MG Oral Tablet (LIORESAL) TAKE 2 TABLETS BY MOUTH IN THE MORNING AND 1 TABLET IN THE EVENING 270 Tab 1 03/04/2020 Active FLUoxetine HCl 20 MG Oral Capsule (PROzac) Take 1 Cap by mouth. 0 Active Desonide 0.05 % External CreamIndications:Psoria sis vulgaris Apply to pink patches on the face twice daily as needed for flares of psoriasis 15 g 3 03/17/2020 Active Fluocinonide 0.05 % External CreamIndications:Allerg ic contact dermatitis due to metals Apply to rash on the abdomen twice daily as needed for flares 30 g 0 04/21/2020 Active Metoprolol Tartrate 50 MG Oral Tablet (LOPRESSOR) TAKE ONE TABLET BY MOUTH TWICE A DAY REPLACES TOPROL XL FOR HEART RATE/ BLOOD PRESSURE 180 Tab 1 04/23/2020 Active Omeprazole 20 MG Oral Capsule Delayed Release (PriLOSEC)Indications:E sophageal reflux TAKE 1 CAPSULE DAILY 90 Cap 3 05/03/2020 Active Sertraline HCl 25 MG Oral Tablet (Zoloft) Take 25 mg by mouth daily. 0 Active documented as of this encounter (statuses as of 08/03/2020) Active Problems Problem Noted Date Essential tremor [...] as of this encounter (statuses as of 08/03/2020) Resolved Problems Problem Noted Date Resolved Date [...] Lipid Taxonomy. Other chronic sinusitis 10/17/19 18 Inspector Packager's cramp 03/28/2019 documented as of this encounter (statuses as of 08/03/2020) Immunizations Name Administration Dates Next Due Influenza Virus Vaccine 03/08/2018 Pneumococcal Conjugate Vacc, 13 Valent (Prevnar) 09/20/2018,12/18/2012 Pneumococcal Polysaccharide PPV23 (Pneumovax) 02/27/2020,03/01/2019,09/18/2013,12/18 Seasonal Influenza, Quadriva lent, No Preserve, 6 Mons & Above, IM 02/08/2018 Seasonal Influenza, Quadriva lent, No Preserve, IM 03/01/2019,02/09/2017,01/15/2016,03/16 Seasonal Influenza, Trivalen t, Adjuvanted, 65+ yrs 02/27/2020 Seasonal Influenza, Trivalen t, with Preserve, 3yr & Above, Split 03/01/2019,01/07/2014,01/24/2013,02/15,02/17/2011,01/06/2010,05/08/2007 TD - Tetanus/Diptheria (ADULT) 07/06/2006 TDAP (age [...] encounter Miscellaneous Notes * Telephone Encounter - Laurence Schmidt TECH - 08/03/2020 3:31 PM EDT Sent message to pt through [employer] message. JARAD Curiel * Telephone Encounter - Gigi Harrell DO - 08/03/2020 2:39 PM EDT Call pt I do not understand his my g did it help and if so how much? For trochanteric region injections documented in this encounter Plan of Treatment Upcoming Encounters Date Type Specialty Care Team Description 01/21/2021 Office Visit Neurology Lynn Hoover MD [address] [place] [address] [phone] 03/19/2021 Office Visit Dermatology Nikia Canales MD [address] [place] [address] [phone] Health Maintenance Due Date Last Done Comments *DEPRESSION SCREENING,ANNUAL FOR PTS 12 AND OVER 10/13/2019 Zoster Vaccines (2 of 2) 05/25/2020 03/30/2020 DTaP,Tdap,and Td Vaccines (2 - Td) 12/12/2021 12/13/2011, 07/06/2006 DIABETES SCREEN EVERY 3 YRS-AGE 45 AND ABOVE 01/05/2023 01/06/2020, 09/12/2018, 09/11/2017, Additional history exists COLONOSCOPY-EVERY 3 YRS AGES 18-100 02/11/2023 02/12/2020, 02/12/2020, 06/03/2016, Additional history exists LIPID SCREEN EVERY 5 YRS-MEN AGE 35-75 01/05/2025 01/06/2020, 09/12/2018, 09/11/2017, Additional history exists Influenza Vaccine (FLU shot) Completed , 03/01/2019, 03/01/2019, Additional history exists Pneumococcal Vaccine: 65+ Years Completed 02/27/2020, 03/01/2019, 09/20/2018, Additional history exists MENINGOCOCCAL (MENACTRA/MENVEO) Aged Out No longer eligible based on patient's age to complete this topic documented as of this encounter Implants Not on filedocumented as of this encounter Advance Directives Documents on File Type Date Recorded Patient Beekeeper Farmer Expl 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 Advanced Directive Advanced Directive Advanced Directive Advanced Directive Advanced Directive Advanced Directive Advanced Directive Advanced Directive
--- OUTSIDE RECORDS SUMMARY | 2023-02-20 21:43 | External Medical Summary | Summary of Care ---
Author Name Unknown Organization [place] [address] Care Team Providers Care Slate Roofer Name Role Phone Armani Hough MD Primary Care Provider + [phone] Reason for Visit * Reason Comments Re-Check Encounter Details Date Type Department Care Team Description 06/16/2020 Office Visit Internal Medicine [address] [place] [address] Armani Hough MD [address] [place] [address] [place] [address] [phone] Primary hypertension*; Major depressive disorder, single episode, moderate (HCC); Gastroesophageal reflux disease with esophagitis without hemorrhage; Raynaud's disease without gangrene; Psoriasis; Essential tremor Allergies No Known Active Allergiesdocumented as of this encounter (statuses as of 06/16/2020) Medications Medication Sig Dispensed Refills Start Date [...] 1 04/17/2017 Active tacrolimus (PROTOPIC) 0.1 % ointmentIndications :Other psoriasis Apply to psoriasis on the genitals [...] 12/09/2019 Active predniSONE 10 MG Oral Tablet (DELTASONE)Indicati ons:Primary osteoarthritis of both hips TAKE 1 TABLET BY MOUTH EVERY DAY WITH FOOD 90 Tab 1 02/24/2020 Active Baclofen 10 MG Oral Tablet (LIORESAL) TAKE 2 TABLETS BY MOUTH IN THE MORNING AND 1 TABLET IN THE EVENING 270 Tab 1 03/04/2020 Active FLUoxetine HCl 20 MG Oral Capsule (PROzac) Take 1 Cap by mouth. 0 Acti ve Desonide 0.05 % External CreamIndications:Ps oriasis vulgaris [...] 25 mg by mouth daily. 0 Active sertraline (ZOLOFT) 25 MG TabletIndications:1 /2 tablet in am,mid day and 1 tablet at bedtime Take 12.5 mg by mouth daily. Indications: 1/2 tablet in am,mid day and 1 tablet at bedtime 30 Tab 5 10/09/2018 06/16/19 21 Discontinu ed(Medicat ion/Dose Changed) Famotidine 20 MG Oral Tablet (PEPCID)Indications :Gastroesophageal reflux disease with esophagitis TAKE 1 TABLET DAILY 90 Tab 1 02/24/2020 06/16/19 21 Discontinu ed(Medicat ion List Clean Up) Pneumococcal Vac Polyvalent 25 MCG/0.5ML Injection Injectable (PNEUMOVAX 23) INJECT 0.5ML INTRAMUSCULARLY ONCE 0 02/24/2020 06/16/19 Discontinu ed(End of Procedure) documented as of this encounter (statuses as of 06/16/2020) Active Problems Problem Noted Date Essential tremor 01/12/2018 Persistent insomnia 06/22/2015 History of basal cell carcinoma 10/03/19 Overview: right chest 09/2014 History of squamous [...] as of this encounter (statuses as of 06/16/2020) Resolved Problems Problem Noted Date Resolved Date [...] Lipid Taxonomy. Other chronic sinusitis 10/17/19 18 Guest Services Officer's cramp 03/28/2019 documented as of this encounter (statuses as of 06/16/2020) Immunizations Name Administration Dates Next Due Influenza [...] Sign Reading Time Taken Comments Blood Pressure 124/72 06/16/2020 10:01 AM EST Pulse 76 06/16/2020 10:01 AM EST Temperature 36.6 C (97.9 F) 06/16/2020 10:[address] Respiratory Rate - - Oxygen Saturation - - Inhaled Oxygen Concentration - - Weight 93.6 kg (206 lb 6 oz) 06/16/2020 10:01 AM EST Height - - Body Mass Index 30.48 02/12/2020 8:01 AM EDT documented in this [...] Progress Notes * Armani Hough MD - 06/16/2020 10:05 AM EST [place] wonders about the Coronovirus shot. [facility] if [facility] will be able to get the shot [facility]. He gets a lot of his labs from them as well. Med list reviewed. No complaints ofheadache, trouble with vision or hearing. Eating well, with no bowel or bladder complaints. Denies chest pain or palpitations. Denies shortness of breath, PND, or orthopnea. No skin rashes or breakdown. No changes in mentation. The rest of a 10 point review of systems is negative. Health Maintenance addressed. Had flu shot and colonoscopy. Past Medical History: Diagnosis Date Avulsion of hamstring muscle, right, initial encounter 05/11/2017 Benign neoplasm of colon 10/15/10 polyp x1, path shows adenomatous tissue repeat in 5 years Calcific tendonitis of right thigh 06/01/2017 CT Dyslipidemia, goal LDL below 160 Encounter for hepatitis C screening test for low risk patient 09/08/2016 negative Esophageal reflux Essential and other specified forms of tremor Generalized anxiety disorder Hepatitis A antibody positive 09/08/2016 HTN, goal below 140/90 Impotence of organic origin Inflamed seborrheic keratosis 07/27/[address] Victoria Major depressive disorder, single episode, moderate (HCC) Other chronic sinusitis Other psoriasis Raynaud's syndrome Rosacea Rupture of hamstring tendon 05/26/2017 right Guest Services Officer's cramp Past Surgical History: Procedure Laterality Date COLONOSCOPY W/ LESION REMOVAL, SNARE 10/15/2010 polyp x1, path shows adenomatous tissue repeat in 5 years COLONOSCOPY, DIAGNOSTIC (RECTUM) 06/03/2016 7,6,2 mm polyps ascending, 6,3 mm polyps transverse colon Repeat 3 years/COLONOSCOPY FLEXIBLE PROXIMAL DIAGNOSTIC performed by Antoinette Godinez MD at [facility] COLONOSCOPY, DIAGNOSTIC (RECTUM) 02/12/2020 adenomatous polyps, repeat 3 yrs / COLONOSCOPY FLEXIBLE PROXIMAL DIAGNOSTIC performed by Antoinette Godinez MD at [facility]COPY [facility] COLONOSCOPY, REMOVE LESION, W/SNARE N/A 02/12/2020 [...] of patient's allergies indicates: No Known Allergies O: Blood pressure 124/72, pulse 76, temperature 36.6 C (97.9 F), temperature source Tympanic, weight 93.6 kg (206 lb 6 oz). General appearance: well developed, well nourished [...] pedal edema. No skin rashes. Extremities unremarkable. No tremor noted at present A: Primary hypertension (Primary) Major depressive disorder, single episode, moderate (HCC) Gastroesophageal reflux disease with esophagitis without hemorrhage Raynaud's disease without gangrene Psoriasis Essential tremor Continue other meds as before. Follow Up: Return for Clinic Visit. | For: Clinic Visit documented in this encounter Nursing Notes * Marina Partida LPN - 06/16/2020 9:59 AM EST 6 month recheck documented in this encounter Plan of Treatment Upcoming Encounters Date Type Specialty Care Team Description 01/21/2021 Office Visit Neurology Lynn Hoover MD [address] [place] [address] [phone] 03/19/2021 Office Visit Dermatology Nikia Canales MD [address] [place] [address] [phone] Health Maintenance Due Date Last Done Comments [...] (HCC) Major depressive disorder, single episode, moderate Gastroesophageal reflux disease with esophagitis without hemorrhage Raynaud's disease without gangrene Psoriasis Other psoriasis Essential tremor Essential and other specified forms of tremor documented in this encounter Advance Directives Documents on File Type Date Recorded Patient Promotions Executive Producer Expl 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 Advanced Directive Advanced Directive Advanced Directive Advanced Directive Advanced Directive Advanced Directive"
--- OUTSIDE RECORDS SUMMARY | 2023-02-20 21:43 | External Medical Summary | Summary of Care ---
Author Name Unknown Organization [place] [address] Care Team Providers Care Hand Scraper Name Role Phone Armani Arreguin MD Primary Care Provider + [phone] Reason for Visit * Reason Comments eRx-Medication Refill Encounter Details Date Type Department Care Team Description 10/03/2020 Refill Internal Medicine [address] [place] [address] Adriel Cook MD [address] [place] [address] [place] [address] [phone] Allergies No Known Active Allergiesdocumented as of this encounter (statuses as of 10/05/2020) Medications Medication Sig Dispensed Refills Start Date [...] AT BEDTIME 90 Tab 0 10/05/2020 Active atorvaSTATin (LIPITOR) 40 MG Tablet TAKE 1 TABLET BY MOUTH AT BEDTIME 90 Tab 3 10/15/2019 10/05/2020 Discontinued documented as of this encounter (statuses as of 10/05/2020) Active Problems Problem Noted Date Essential tremor [...] as of this encounter (statuses as of 10/05/2020) Resolved Problems Problem Noted Date Resolved Date [...] Lipid Taxonomy. Other chronic sinusitis 10/17/19 18 Graphotype Operator's cramp 03/28/2019 documented as of this encounter (statuses as of 10/05/2020) Immunizations Name Administration Dates Next Due Influenza [...] encounter Miscellaneous Notes * Telephone Encounter - Jacquelyn Gabriel, [facility] - 10/05/2020 8:18 AM EDT Signed Prescriptions: Disp Refills Atorvastatin Calcium 40 MG Oral Tablet (Li*90 Tab 0 Sig: TAKE 1 TABLET BY MOUTH EVERYDAY AT BEDTIME Authorizing Provider: ARMANI ARREGUIN Ordering User: JACQUELYN GABRIEL * Telephone Encounter - Jacquelyn Gabriel [facility] - 10/05/2020 8:18 AM EDT 1 refill approved as pt will be due for lab work within 3 months. Thank You, Jacquelyn Gabriel [facility] Pharmacist Telepharmacy 10/05/2020, 8:18 AM documented in this encounter Plan of Treatment Upcoming Encounters Date Type Specialty Care Team Description 01/21/2021 Office Visit Neurology Lynn Hoover MD [address] [place] [address] 03/22/2021 Office Visit Dermatology Delilah Lynn PA-C [address] [place] [address] Health Maintenance Due Date Last [...] Documents on File Type Date Recorded Patient Grainer Machine Expl 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 Advanced Directive Advanced Directive Advanced Directive Advanced Directive Advanced Directive Advanced Directive Advanced Directive Advanced Directive Advanced Directive
--- OUTSIDE RECORDS SUMMARY | 2023-02-20 21:43 | External Medical Summary | Summary of Care ---
Author Name Unknown Organization [place] [address] Care Team Providers Care Benzene Still Utility Operator Name Role Phone Armani Arreguin MD Primary Care Provider + [phone] Reason for Visit * Reason Comments Follow Up For full body skin c alanis.Hx of NMSCs.Claims psoriasis getting worse on his face.Stated that he uses Hydrocortisone 2.5%,takes time but it works.Otherwise no new areas of concern. Encounter Details Date Type Department Care Team Description 03/17/2020 Office Visit Dermatology [facility] [address] [place] [address] Nikia Canales MD [address] [place] [id number] [phone] Psoriasis vulgaris*; History of nonmelanoma skin cancer; Allergic contact dermatitis due to metals Allergies No Known Active Allergiesdocumented as of this encounter (statuses as of 03/17/2020) Medications Medication Sig Dispensed Refills Start Date End Date Status LISINOPRIL 40 MG PO TABSIndications:in am Take by mouth. Indications: in am 90 Tab 3 12/13/2011 Active TOPROL XL 50 MG PO TB24 One pill by mouth twice a day from [place] 90 Tab 3 12/13/2011 Active VIAGRA 100 [...] AT BEDTIME 90 Tab 1 04/17/2017 Active sertraline (ZOLOFT) 25 MG TabletIndications:1 /2 tablet in am,mid day and 1 tablet at bedtime Take 12.5 mg by mouth daily. Indications: 1/2 tablet in am,mid day and 1 tablet at bedtime 30 Tab 5 10/09/2018 Active omeprazole (PRILOSEC) 20 MG CPDRIndications:Eso phageal reflux TAKE 1 CAPSULE DAILY 90 Cap 3 07/22/2019 Active tacrolimus (PROTOPIC) 0.1 % ointmentIndications :Other [...] WITH FOOD 90 Tab 1 02/24/2020 Active Famotidine 20 MG Oral Tablet (PEPCID)Indications :Gastroesophageal reflux disease with esophagitis TAKE 1 TABLET DAILY 90 Tab 1 02/24/2020 Active Baclofen 10 MG Oral Tablet (LIORESAL) TAKE 2 TABLETS BY MOUTH IN THE MORNING AND 1 TABLET IN THE EVENING 270 Tab 1 03/04/2020 Active FLUoxetine HCl 20 MG Oral Capsule (PROzac) Take 1 Cap by mouth. 0 Acti ve Metoprolol Tartrate 50 MG Oral Tablet (LOPRESSOR) TAKE ONE TABLET BY MOUTH TWICE A DAY REPLACES TOPROL XL FOR HEART RATE/ BLOOD PRESSURE 0 07/22/2019 Active Pneumococcal Vac Polyvalent 25 MCG/0.5ML Injection Injectable (PNEUMOVAX 23) INJECT 0.5ML INTRAMUSCULARLY ONCE 0 02/24/2020 Active Propranolol HCl 60 MG Oral Tablet (INDERAL) Take by mouth. 0 Active Desonide 0.05 % External CreamIndications:Ps oriasis vulgaris Apply to pink patches on the face twice daily as needed for flares of psoriasis 15 g 3 03/17/2020 Active triamcinolone acetonide (ARISTOCORT) 0.1 % creamIndications:Ot her psoriasis Apply topically to affected area 2 times a day as needed for Itching. To affected area of body. 80 g 3 08/26/2014 03/17/20 20 Discontinu ed(Medicat ion List Clean Up) Hydrocortisone 2.5 % ointmentIndications :Dermatitis Apply to rash on the face twice daily x 3-4 days, then 2-3 x's per week. 15 g 1 12/05/2019 03/17/20 20 Discontinu ed(Medicat ion List Clean Up) documented as of this encounter (statuses as of 03/17/2020) Active Problems Problem Noted Date Essential tremor [...] as of this encounter (statuses as of 03/17/2020) Resolved Problems Problem Noted Date Resolved Date [...] Lipid Taxonomy. Other chronic sinusitis 10/17/19 18 Condominium Manager's cramp 03/28/2019 documented as of this encounter (statuses as of 03/17/2020) Immunizations Name Administration Dates Next Due Pneumococcal Conjugate Vacc, 13 Valent (Prevnar) 12/18/2012 Pneumococcal Polysaccharide PPV23 (Pneumovax) 03/01/2019,09/18/2013,12/18/2008 Seasonal Influenza, Quadriva lent, No Preserve, 6 Mons & Above, IM 02/08/2018 Seasonal Influenza, Quadriva lent, No Preserve, IM 03/01/2019,02/09/2017,01/15/2016,03/16 Seasonal Influenza, Trivalen t, with Preserve, 3yr & Above, Split 01/07/2014,01/24/2013,02/16/2012,02/17,01/06/2010,05/08/2007 TD - Tetanus/Diptheria (ADULT) 07/06/2006 TDAP (age 10 and older)(Boostrix) 12/13/2011 documented as of this encounter Social History [...] as of this encounter Progress Notes * Nikia Canales MD - 03/17/2020 7:15 AM EST SUBJECTIVE: History of Present Illness: Cuong Li is a 64 year old male seen today for a follow-up full skin examination. Last Office/Telemedicine Visit: 04/25/2019. 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 New concerns today include: no new spots of concern. Follow-up psoriasis on the penis and gluteal cleft-treating with protopic 0.1% ointment with good improvement but starting to worsen on the face-treating with hydrocortisone 2.5% ointment with some improvement. Follow-up contact dermatitis to nickel-treated with fluocinonide cream at last visitwith improvement. Pt continues to wear nickel belt so flares when he wears his belt. He tries to wear suspenders at times. REVIEW OF SYSTEMS: SKIN: No other new or changing moles. HEME/LYMPH: No new or enlarging lumps or bumps. CONSTITUTIONAL: No nausea, vomiting, fevers, chills, diarrhea. No recent unintended weight loss, night sweats, appetite or malaise. MEDICA TIONS: Current Outpatient Medications Medication Sig Dispense Refill Baclofen 10 MG Oral Tablet (LIORESAL) TAKE 2 TABLETS BY MOUTH IN THE MORNING AND 1 TABLET IN THE EVENING 270 Tab 1 Famotidine 20 MG Oral Tablet (PEPCID) TAKE 1 TABLET DAILY 90 Tab 1 predniSONE 10 MG Oral Tablet (DELTASONE) TAKE 1 TABLET BY MOUTH EVERY DAY WITH FOOD 90 Tab 1 zoster vac recomb adjuvanted (SHINGRIX) 50 MCG/0.5ML injection Inject 0.5 mL into a large muscle now and repeat dose in 60 to 180 days 1 Each 1 Hydrocortisone 2.5 % ointment Apply to rash on the face twice daily x 3-4 days, then 2-3 x's per week. 15 g 1 atorvaSTATin (LIPITOR) 40 MG Tablet TAKE 1 TABLET BY MOUTH AT BEDTIME 90 Tab 3 tacrolimus (PROTOPIC) 0.1 % ointment Apply to psoriasis on the genitals twice daily as needed for flares. 60 g 2 omeprazole (PRILOSEC) 20 MG CPDR TAKE 1 CAPSULE DAILY 90 Cap 3 sertraline (ZOLOFT) 25 MG Tablet Take 12.5 mg by mouth daily. Indications: 1/2 tablet in am,mid dayand 1 tablet at bedtime 30 Tab 5 traZODone (DESYREL) 100 MG Tablet TAKE 1/2 TABLET DAILY AT BEDTIME 90 Tab 1 BuPROPion HCl ER, SR, 200 MG TB12 Take 200 mg by mouth 2 times a day. 1 twice daily 0 Cholecalciferol (VITAMIN D) 2000 UNITS Tablet Take 2,000 Units by mouth daily. Indications: at bedtime triamcinolone acetonide (ARISTOCORT) 0.1 % cream Apply topically to affected area 2 times a day as needed for Itching. To affected area of body. 80 g 3 VIAGRA 100 MG PO TABS one as needed 6 Tab 5 LISINOPRIL 40 MG PO TABS Take by mouth. Indications: in am 90 Tab 3 TOPROL XL 50 MG PO TB24 One pill by mouth twice a day from [place] 90 Tab 3 ALLERG IES: Patient has no known allergies. PAST MEDICAL HISTORY: Past Medical History: Diagnosis Date Avulsion of [...] Rosacea Rupture of hamstring tendon 05/26/2017 right Condominium Manager's cramp OBJECTIVE: GEN: Healthy, alert, no distress, appears oriented, pleasant and cooperative. SKIN: Detailed exam of hair, face including lids and lips, neck, chest, abdomen, back, bilateral upper ext. (arm, hand, fingers), bilateral lower ext. (leg, foot, toes), fingernails, toenails and buttocks completed and are normal except: 1. Scars on the lower back, right chest and right helix, no cervical lymphadenopathy. 2. [place] scaling patches on the infraorbital cheeks, nasolabial folds, right and left temporal scalpand gluteal cleft 3. [place] scaling patch on the central abdomen under the umbilicus. ASSESS MENT/PLAN: 1. History of nonmelanoma skin cancer-No evidence of recurrence. Educated on regular use of sun protection and skin self-examination 2. Psoriasis vulgaris-BSA: 1-3%, Special Site: Scalp: mild, Genitalia/Buttocks; moderate and Face; moderate; Status: improved. Desonide cream twice daily as needed for flares Protopic 0.1% ointment to genital area and buttocks twice daily as needed for flares 3. Contact dermatitis to nickel-fluocinonide cream twice daily as needed for flares Kirstie avoidance. Patient counseled to examine herself for new or changing moles on a monthly basis. I reveiwed changes to watch for including changes in the ABCDs, asymmetry of a lesion, changes in border, color or diameter as well as non healing lesions. I instructed the patient to call if any new lesions appear or current lesions change. I discussed with the patient the need for daily sunscreens of a number 30 or higher as well as how to apply sunscreens. Discussed sun protection with patient including proper use of sunscreens and protective clothing. Follow-up: 1 year There were no barriers tolearning and no other pain was related to today's visit. The patient and/or person accompanying patient demonstrates understanding of the visit and treatment. Nikia Canales MD Ref: SELF[[id number]] NO STREET ADDRESS AVAILABLE None (office) None (fax) PCP: ARMANI ARREGUIN [address] [place] [address] [place] [address] [phone] documented in this encounter Nursing Notes * Christine Lott RN - 03/17/2020 7:14 AM EST Patient identified by name and date of . Do you have any concerns about pain management for today's visit? No Living Will or Advance Directive for Health Care as noted on problem list. [facility] is a way you can talk to your provider online through e-mail. Would you like to sign up? I can activate it for you? ALREADY ACTIVE Chief Complaint Patient presents with Follow Up For full body skin check.Hx of NMSCs.Claims psoriasis getting worse on his face.Stated that he usesHydrocortisone 2.5%,takes time but it works.Otherwise no new areas of concern. documented in this encounter Plan of Treatment Upcoming Encounters Date Type Specialty Care Team Description 06/12/2020 Office Visit Internal Medicine Armani Arreguin MD [address] [place] [address] [place] [address] [phone] 01/21/2021 Office Visit Neurology Lynn Hoover MD [address] [facility] [place] [address] [phone] 03/19/2021 Office Visit Dermatology Nikia Canales MD [address] [facility] [place] [address] [phone] Health Maintenance Due Date Last Done Comments Zoster Vaccines (1 of 2) 07/21/2003 *DEPRESSION SCREENING,ANNUAL FOR PTS 12 AND OVER 10/13/2019 Influenza Vaccine (FLU shot) (#1) 2019 03/01/2019, 03/01/2019, 03/08/2018, Additional history exists DTaP,Tdap,and Td Vaccines (2 - Td) 12/12/2021 12/13/2011, 07/06/2006 DIABETES SCREEN EVERY 3 YRS-AGE 45 AND ABOVE 01/05/2023 01/06/2020, 09/12/2018, 09/11/2017, Additional history exists COLONOSCOPY-EVERY 3 YRS AGES 18-100 02/11/2023 02/12/2020, 02/12/2020, 06/03/2016, Additional history exists LIPID SCREEN EVERY 5 YRS-MEN AGE 35-75 01/05/2025 01/06/2020, 09/12/2018, 09/11/2017, Additional history exists Pneumococcal Vaccine: 65+ Years Completed 03/01/2019, 09/18/2013, 12/18/2012, Additional history exists MENINGOCOCCAL (MENACTRA/MENVEO) Aged Out No longer eligible based on patient's age to complete this topic documented as of this encounter Implants Not on filedocumented as of this encounter Visit Diagnoses Diagnosis Psoriasis vulgaris- Primary Other psoriasis History of nonmelanoma skin cancer Personal history of other malignant neoplasm of skin Allergic contact dermatitis due to metals Dermatitis due to metals documented in this encounter Advance Directives Documents on File Type Date Recorded Patient Power Washer Expl 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 Advanced Directive Advanced Directive Advanced Directive Advanced Directive Advanced Directive
--- OUTSIDE RECORDS SUMMARY | 2023-02-20 21:43 | External Medical Summary | Summary of Care ---
Author Name Unknown Organization [place] [address] Care Team Providers Care Sole Conditioner Name Role Phone Armani Hough MD Primary Care Provider + [phone] Reason for Visit * Reason Onset Date Comments Medication Refill 03/03/2020 Encounter Details Date Type Department Care Team Description 03/03/2020 Refill Neurology [facility] [address] [place] [address] Reinaldo Hoover MD [address] [place] [address] [phone] Allergies No Known Active Allergiesdocumented as of this encounter (statuses as of 03/04/2020) Medications Medication Sig Dispensed Refills Start Date [...] as needed 6 Tab 5 04/26/2013 Active triamcinolone acetonide (ARISTOCORT) 0.1 % creamIndications:Oth er psoriasis Apply topically to affected area 2 times a day as needed for Itching. To affected area of body. 80 g 3 08/26/2014 Active Cholecalciferol (VITAMIN D) 2000 UNITS TabletIndications:at bedtime Take 2,000 Units by mouth daily. Indications: at bedtime 0 Active BuPROPion HCl ER, SR, 200 MG TB12 Take 200 mg by mouth 2 times a day. 1 twice daily 0 05/26/2016 Active traZODone (DESYREL) 100 MG TabletIndications:Pe rsistent insomnia TAKE 1/2 TABLET DAILY AT BEDTIME 90 Tab 1 04/17/2017 Active sertraline (ZOLOFT) 25 MG TabletIndications:1/ 2 tablet in am,mid day and 1 tablet at bedtime Take 12.5 mg by mouth daily. Indications: 1/2 tablet in am,mid day and 1 tablet at bedtime 30 Tab 5 10/09/2018 Active omeprazole (PRILOSEC) 20 MG CPDRIndications:Esop hageal reflux TAKE 1 CAPSULE DAILY 90 Cap 3 07/22/2019 Active tacrolimus (PROTOPIC) 0.1 % ointmentIndications: Other psoriasis Apply to psoriasis on the genitals twice daily as needed for flares. 60 g 2 08/28/2019 Active atorvaSTATin (LIPITOR) 40 MG Tablet TAKE 1 TABLET BY MOUTH AT BEDTIME 90 Tab 3 10/15/2019 Active Hydrocortisone 2.5 % ointmentIndications: Dermatitis Apply to rash on the face twice daily x 3-4 days, then 2-3 x's per week. 15 g 1 12/05/2019 Active zoster vac recomb adjuvanted (SHINGRIX) 50 MCG/0.5ML injectionIndications :Need for vaccination for zoster Inject 0.5 mL into a large muscle now and repeat dose in 60 to 180 days 1 Each 1 12/09/2019 Active predniSONE 10 MG Oral Tablet (DELTASONE)Indicatio ns:Primary osteoarthritis of both hips TAKE 1 TABLET BY MOUTH EVERY DAY WITH FOOD 90 Tab 1 02/24/2020 Active Famotidine 20 MG Oral Tablet (PEPCID)Indications: Gastroesophageal reflux disease with esophagitis TAKE 1 TABLET DAILY 90 Tab 1 02/24/2020 Active Baclofen 10 MG Oral Tablet (LIORESAL) TAKE 2 TABLETS BY MOUTH IN THE MORNING AND 1 TABLET IN THE EVENING 270 Tab 1 03/04/2020 Active baclofen (LIORESAL) 10 MG Tablet TAKE 2 TABLETS BY MOUTH IN THE MORNING AND 1 TABLET IN THE EVENING 270 Tab 1 06/26/2019 03/03/2020 Discontinue d(Refill) documented as of this encounter (statuses as of 03/04/2020) Active Problems Problem Noted Date Essential tremor [...] as of this encounter (statuses as of 03/04/2020) Resolved Problems Problem Noted Date Resolved Date [...] Lipid Taxonomy. Other chronic sinusitis 10/17/19 18 Extermination Supervisor's cramp 03/28/2019 documented as of this encounter (statuses as of 03/04/2020) Immunizations Name Administration Dates Next Due Pneumococcal [...] Telephone Encounter - Reinaldo Hoover MD - 03/04/2020 9:27 AM EDT Signed Prescriptions: Disp Refills Baclofen 10 MG Oral Tablet (LIORESAL) 270 Tab1 Sig: TAKE 2 TABLETS BY MOUTH IN THE MORNING AND 1 TABLET IN THE EVENING Authorizing Provider: REINALDO HOOVER * Telephone Encounter - Kiana Willis LPN - 03/04/2020 9:18 AM EDT Message from [employer]: Refills have been requested for the following medications: baclofen (LIORESAL) 10 MG Tablet [Reinaldo Hoover MD] Preferred pharmacy: [id number] [address] [facility] documented in this encounter Plan of Treatment Upcoming Encounters Date Type Specialty Care Team Description 03/17/2020 Office Visit Dermatology Nikia Canales MD [address] [place], [place] [phone] 06/12/2020 Office Visit Internal Medicine Armani Hough MD [address] [place] [address] [place] [phone] 01/21/2021 Office Visit Neurology Reinaldo Hoover MD [address] [place] [address] Health Maintenance Due Date Last Done Comments [...] Documents on File Type Date Recorded Patient Cavalry Scout Expl 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 Advanced Directive Advanced Directive Advanced Directive
--- OUTSIDE RECORDS SUMMARY | 2023-02-20 21:43 | External Medical Summary | Summary of Care ---
Author Name Unknown Organization [place] [address] Care Team Providers Care Financial Solutions Advisor Name Role Phone Armani Hough MD Primary Care Provider + [phone] Reason for Visit * Reason Comments Joint Pain right greater troch Encounter Details Date Type Department Care Team Description 06/30/2020 Office Visit Orthopaedics [facility] [address] [facility] [place] [address] Gigi Harrell, DO [address] [place] [address] Greater trochanteric pain syndrome of right lower extremity* Allergies No Known Active Allergiesdocumented as of this encounter (statuses as of 06/30/2020) Medications Medication Sig Dispensed Refills Start Date [...] 25 mg by mouth daily. 0 Active Hospital, Clinic, or Other Facility Administered Medication Ordered Dose Route Frequency Start Date End Date Status ROPivacaine 0.5% 3 mL - DEPO-Medrol 40 mg/mL 1 mL inj 4 mLIndications:Greater trochanteric pain syndrome of right lower extremity 4 mL IJ ONCE 06/30/2020 06/30/2020 Ended documented as of this encounter (statuses as of 06/30/2020) Active Problems Problem Noted Date Essential tremor [...] as of this encounter (statuses as of 06/30/2020) Resolved Problems Problem Noted Date Resolved Date [...] Lipid Taxonomy. Other chronic sinusitis 10/17/19 18 Hosiery Mender's cramp 03/28/2019 documented as of this encounter (statuses as of 06/30/2020) Immunizations Name Administration Dates Next Due Influenza [...] Pressure - - Pulse - - Temperature 36.8 C (98.3 F) 06/30/2020 8:56 AM ES T Respiratory Rate - - Oxygen Saturation - - Inhaled Oxygen Concentration - - Weight - - Height - - Body Mass Index - - documented in this encounter Functional Status Functional [...] encounter Progress Notes * Gigi Harrell, - 06/30/2020 9:29 AM EST Cuong Li [id number] INJECTION NOTE Cuong Li is a 64 year old male who presents to [facility] for Right trochanteric bursa. Last injected he got relief for 2 months Physical Exam General: in no acute distress Mood and Affect: normal Gait and Station: mildly antalgic Assessment and Plan: would like repeat injection, he does not feel PT helped, see procedure note, my g update Greater trochanteric pain syndrome of right lower extremity (Primary) - ROPivacaine 0.5% 3 mL - DEPO-Medrol 40 mg/mL 1 mL inj 4 mL - POINT OF CARE US MAJOR JOINT INJECTION, ORTHO Gigi Harrell DO Primary Care Sports Medicine [facility] [place] [address] Procedure note (trochanteric bursa), right : Time out: Prior to injection, a time out was called to confirm the administration of appropriate medicine, patient name, procedure and confirm to the best of our ability and knowledge the presence of any necessary risks and benefits. Patient verbalizes understanding. Ultrasound utilized to guide injection Ultrasound required due to need to visualize specific bursa and inject in this specific location. Sterile techinique applied. Skin sterilized with alcohol swab. Lateral aproach to inject trochanteric bursa using 3.5 inch, 22 gauge needle. Injected with 3 ml Ropivacaine 0.5%, 1 ml depomedrol 40mg/ml. Patient tolerated procedure with no significant bleeding [...] in this encounter Nursing Notes * Sarahi Moore LPN - 06/30/2020 8:57 AM EST Pt presents for chronic right greater troch and back while ambulating. Sarahi Mcgarry LPN documented in this encounter Plan of Treatment Upcoming Encounters Date Type Specialty Care Team Description 01/21/2021 Office Visit Neurology Lynn Hoover MD [address] [facility] [place] [address] [phone] 03/19/2021 Office Visit Dermatology Nikia Canales MD [address] [facility] [place] [address] [phone] Health Maintenance Due Date Last Done Comments [...] CARE US MAJOR JOINT INJECTION, ORTHO Routine 06/30/2020 10:23 AM EST Greater trochanteric pain syndrome of right lower extremity documented in this encounter Results * POINT OF CARE US MAJOR JOINT INJECTION, ORTHO (06/30/2020 10:23 AM EST) Specimen Narrative Performed At [facility] - Ultrasound Program Exam Date: 06/30/2020 Exam Type: Ortho Bow Maker Gift Wrapping: Gigi Harrell Attending: Gigi Harrell Worksheet: Ortho Injection Exam Information: Impression: Procedure note (trochanteric bursa), right : ? Time out: Prior to injection, a time out was called to confirm the administration of appropriate medicine, patient name, procedure and confirm to the best of our ability and knowledge the presence of any necessary risks and benefits. Patient verbalizes understanding. ? Ultrasound utilized to guide injection Ultrasound required due to need to visualize specific bursa and inject in this specific location. ? Sterile techinique applied. Skin sterilized with alcohol swab. Lateral aproach to inject trochanteric bursa using 3.5 inch, 22 gauge needle. Injected with 3 ml Ropivacaine 0.5%, 1 ml depomedrol 40mg/ml. Patient tolerated procedure with no significant bleeding or adverse reaction. ? Patient instructed to call or return to clinic for fever or warmth and redness at injection site for potential infection. Patient also advised as to potential for steroid flare reaction including increased pain and redness at injection site which should be treated with ice and resolve within 24 hours. ? Physician Signature: I reviewed the images and approve the documentation above.: Signed by Gigi Harrell on Tuesday, June 30, 2020 at 9:32:27 AM Q-PATH Procedure Note Interface, Rad In - 06/30/2020 9:32 AM EST [facility] - Ultrasound Program Exam Date: 06/30/2020 Exam Type: Ortho Bow Maker Gift Wrapping: Gigi Harrell Attending: Gigi Harrell Worksheet: Ortho Injection Exam Information: Impression: Procedure note (trochanteric bursa), right : ? Time out: Prior to injection, a time out was called to confirm the administration ofappropriate medicine, patient name, procedure and confirm to the best ofour ability and knowledge the presence of any necessary risks andbenefits. Patient verbalizes understanding. ? Ultrasound utilized to guide injection Ultrasound required due to need to visualize specific bursa and inject inthis specific location. ? Sterile techinique applied. Skin sterilized with alcohol swab. Lateralaproach to inject trochanteric bursa using 3.5 inch, 22 gauge needle.Injected with 3 ml Ropivacaine 0.5%, 1 ml depomedrol 40mg/ml. Patienttolerated procedure with no significant bleeding or adverse reaction. ? Patient instructed to call or return to clinic for fever or warmth andredness at injection site for potential infection. Patient also advisedas to potential for steroid flare reaction including increased pain andredness at injection site which should be treated with ice and resolvewithin 24 hours. ? Physician Signature: I reviewed the images and approve the documentation above.: Signed byGigi Harrell on Tuesday, June 30, 2020 at 9:32:27 AM Q-PATH documented in this encounter Visit Diagnoses Diagnosis Greater trochanteric pain syndrome of right lower extremity- Primary documented in this encounter Administered Medications Inactive Administered Medications - up to 3 most recent administrations Medication Order MAR Action Action Date Dose Rate Site ROPivacaine 0.5% 3 mL - DEPO-Medrol 40 mg/mL 1 mL inj 4 mL 4 mL, Injection, ONCE, Mon06/30/20 at 1015, For 1 dose, ROPivacaine 0.5 % 3 mL DEPO-Medrol 40 mg/mL 1 mL TOTAL VOLUME = 4 mL REFRIGERATE AND SHAKE WELL, Given 06/30/2020 9:44 AM EST 4 mL Hip R ight documented in this encounter Advance Directives Documents on File Type Date Recorded Patient Protection Engineer Expl 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 Advanced Directive Advanced Directive Advanced Directive Advanced Directive Advanced Directive Advanced Directive Advanced Directive Advanced Directive
--- OUTSIDE RECORDS SUMMARY | 2023-02-20 21:43 | External Medical Summary | Summary of Care ---
Author Name Unknown Organization [place] [address] Care Team Providers Care Cutter Operator Brick Name Role Phone Armani Hough MD Primary Care Provider + [phone] Reason for Visit * Reason Comments eRx-Medication Refill Encounter Details Date Type Department Care Team Description 04/29/2020 Refill Internal Medicine [address] [address] Armani Hough MD [address] [place] [address] [place] [address] [phone] Esophageal reflux Allergies No Known Active Allergiesdocumented as of this encounter (statuses as of 05/03/2020) Medications Medication Sig Dispensed Refills Start Date End Date Status LISINOPRIL 40 MG PO TABSIndications:in am Take by mouth. Indications: in am 90 Tab 3 2 Active VIAGRA 100 MG PO TABSIndications:Im potence of organic origin one as needed 6 Tab 5 3 Active Cholecalciferol (VITAMIN D) 2000 UNITS TabletIndications: at bedtime Take 2,000 Units by mouth daily. Indications: at bedtime 0 Active BuPROPion HCl ER, SR, 200 MG TB12 Take 200 mg by mouth 2 times a day. 1 twice daily 0 7 Active traZODone (DESYREL) 100 MG TabletIndications: Persistent insomnia TAKE 1/2 TABLET DAILY AT BEDTIME 90 Tab 1 7 Active sertraline (ZOLOFT) 25 MG TabletIndications: 1/2 tablet in am,mid day and 1 tablet at bedtime Take 12.5 mg by mouth daily. Indications: 1/2 tablet in am,mid day and 1 tablet at bedtime 30 Tab 5 9 Active tacrolimus (PROTOPIC) 0.1 % ointmentIndication s:Other psoriasis Apply to psoriasis on the genitals twice daily as needed for flares. 60 g 2 0 Active atorvaSTATin (LIPITOR) 40 MG Tablet TAKE 1 TABLET BY MOUTH AT BEDTIME 90 Tab 3 0 Active zoster vac recomb adjuvanted (SHINGRIX) 50 MCG/0.5ML injectionIndicatio ns:Need for vaccination for zoster Inject 0.5 mL into a large muscle now and repeat dose in 60 to 180 days 1 Each 1 0 Active predniSONE 10 MG Oral Tablet (DELTASONE)Indicat ions:Primary osteoarthritis of both hips TAKE 1 TABLET BY MOUTH EVERY DAY WITH FOOD 90 Tab 1 0 Active Famotidine 20 MG Oral Tablet (PEPCID)Indication s:Gastroesophageal reflux disease with esophagitis TAKE 1 TABLET DAILY 90 Tab 1 0 Active Baclofen 10 MG Oral Tablet (LIORESAL) TAKE 2 TABLETS BY MOUTH IN THE MORNING AND 1 TABLET IN THE EVENING 270 Tab 1 0 Active FLUoxetine HCl 20 MG Oral Capsule (PROzac) Take 1 Cap by mouth. 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 Apply to rash on the abdomen twice daily as needed for flares 30 g 0 0 Active Metoprolol Tartrate 50 MG Oral Tablet (LOPRESSOR) TAKE ONE TABLET BY MOUTH TWICE A DAY REPLACES TOPROL XL FOR HEART RATE/ BLOOD PRESSURE 180 Tab 1 0 Active Omeprazole 20 MG Oral Capsule Delayed Release (PriLOSEC)Indicati ons:Esophageal reflux TAKE 1 CAPSULE DAILY 90 Cap 3 0 Active omeprazole (PRILOSEC) 20 MG CPDRIndications:Es ophageal reflux TAKE 1 CAPSULE DAILY 90 Cap 3 0 05/03/20 20 Discontinued documented as of this encounter (statuses as of 05/03/2020) Active Problems Problem Noted Date Essential tremor [...] as of this encounter (statuses as of 05/03/2020) Resolved Problems Problem Noted Date Resolved Date [...] Lipid Taxonomy. Other chronic sinusitis 10/17/19 18 Chief Fishery Division's cramp 03/28/2019 documented as of this encounter (statuses as of 05/03/2020) Immunizations Name Administration Dates Next Due Pneumococcal [...] encounter Miscellaneous Notes * Telephone Encounter - Miriam Arevalo [facility] - 05/03/2020 8:28 AM EST Signed Prescriptions: Disp Refills Omeprazole 20 MG Oral Capsule Delayed Rele*90 Cap 3 Sig: TAKE 1 CAPSULE DAILYAuthorizing Provider: PILGRAM, ARMANI Castillo User: MIRIAM AREVALO documented in this encounter Plan of Treatment Upcoming Encounters Date Type Specialty Care Team Description 06/16/2020 Office Visit Internal Medicine Armani Hough MD [address] [place] [address] [place] [address] 01/21/2021 Office Visit Neurology Lynn Hoover MD [address] [place] [address] 03/19/2021 Office Visit Dermatology Nikia Canales MD [address] [place] [address] Health Maintenance Due Date Last Done [...] as of this encounter Visit Diagnoses Diagnosis Esophageal reflux documented in this encounter Advance Directives Documents on File Type Date Recorded Patient Body Component Engineer Expl 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 Advanced Directive Advanced Directive Advanced Directive Advanced Directive Advanced Directive Advanced Directive
--- OUTSIDE RECORDS SUMMARY | 2023-02-20 21:43 | External Medical Summary | Summary of Care ---
Author Name Unknown Organization [place] [address] Care Team Providers Care Automatic Screwmaker Name Role Phone Armani Hough MD Primary Care Provider + [phone] Reason for Visit * Reason Comments eRx-Medication Refill Encounter Details Date Type Department Care Team Description 09/01/2020 Refill Dermatology [facility] [address] [facility] [place] [address] Margi Love MD [address] [facility] [place] [address] [phone] Other psoriasis Allergies No Known Active Allergiesdocumented as of this encounter (statuses as of 09/01/2020) Medications Medication Sig Dispensed Refills Start Date [...] AT BEDTIME 90 Tab 1 04/17/2017 Active atorvaSTATin (LIPITOR) 40 MG Tablet TAKE [...] FOR FLARES. 60 g 2 09/01/2020 Active tacrolimus (PROTOPIC) 0.1 % ointmentIndication s:Other psoriasis Apply to psoriasis on the genitals twice daily as needed for flares. 60 g 2 08/28/2019 09/01/2020 Discontinued documented as of this encounter (statuses as of 09/01/2020) Active Problems Problem Noted Date Essential tremor [...] as of this encounter (statuses as of 09/01/2020) Resolved Problems Problem Noted Date Resolved Date [...] Lipid Taxonomy. Other chronic sinusitis 10/17/19 18 Biomass Facilitator's cramp 03/28/2019 documented as of this encounter (statuses as of 09/01/2020) Immunizations Name Administration Dates Next Due Influenza [...] encounter Miscellaneous Notes * Telephone Encounter - Margi Love MD - 09/01/2020 8:09 AM EDT Signed Prescriptions: Disp Refills Tacrolimus 0.1 % External Ointment (Protop*60 g 2 Sig: APPLY TOPSORIASIS ON THE GENITALS TWICE DAILY NEEDED FOR FLARES.Authorizing Provider: MARGI LOVE-- * Telephone Encounter - Annalee Rangel LPN - 09/01/2020 8:08 AM EDT Pending Prescriptions: Disp Refills Tacrolimus 0.1 % External Ointment (Emerson*60 g 2 Sig: APPLY TO PSORIASIS ON THE GENITALS TWICE DAILY NEEDED FOR FLARES. * Telephone Encounter - Annalee Rangel LPN - 09/01/2020 8:07 AM EDT Pending Prescriptions: Disp Refills Tacrolimus 0.1 % External Ointment (Emerson*60 g 2 Sig: APPLY TO PSORIASIS ON THE GENITALS TWICE DAILY NEEDED FOR FLARES. Last Office/Telemedicine Visit: 03/17/2020 Next Office Visit: 03/19/2021 Scheduled Provider(s): Margi Love MD Last date the medication was ordered: 08/28/2019 Patient Phone Numbers documented in this encounter Plan of Treatment Upcoming Encounters Date Type Specialty Care Team Description 01/21/2021 Office Visit Neurology Lynn Hoover MD [address] [place] [address], [place] [address] [phone] 03/19/2021 Office Visit Dermatology Margi Love MD [address] [facility] [place] [address] [phone] Health Maintenance Due Date Last Done Comments [...] this encounter Visit Diagnoses Diagnosis Other psoriasis documented in this encounter Advance Directives Documents on File Type Date Recorded Patient Personnel Coordinator Expl 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 Advanced Directive Advanced Directive Advanced Directive Advanced Directive Advanced Directive Advanced Directive Advanced Directive Advanced Directive
--- OUTSIDE RECORDS SUMMARY | 2023-02-20 21:43 | External Medical Summary | Summary of Care ---
Author Name Unknown Organization [place] [address] Care Team Providers Care Deblocker Name Role Phone Armani Hough MD Primary Care Provider + [phone] Reason for Visit * Reason Comments Joint Pain right greater troch Encounter Details Date Type Department Care Team Description 06/30/2020 Office Visit Orthopaedics [facility] [address] [facility] [place] [address] Gigi Harrell, DO [address] [place] [address] Greater trochanteric pain syndrome of [...] Lipid Taxonomy. Other chronic sinusitis 10/17/19 18 Console Attendant's cramp 03/28/2019 documented as of this [...] - 06/30/2020 9:29 AM EST Cuong Li [id number] INJECTION NOTE Cuong Li is a 64 year old male who presents to [facility] for Right trochanteric bursa. Last [...] Gigi Harrell DO Primary Care Sports Medicine [facility] [place] [address] Procedure note (trochanteric bursa), right [...] Office Visit Neurology Lynn Hoover MD [address] [facility] [place] [address] [phone] 03/19/2021 Office Visit Dermatology Nikia Canales MD [address] [facility] [place] [address] [phone] Health Maintenance Due Date Last Done Comments [...] 10:23 AM EST) Specimen [facility]ative [facility] - Ultrasound Program Exam Date: 06/30/2020 Exam Type: Ortho Operations Examiner: Gigi Harrell Attending: Gigi Harrell Worksheet: Ortho [...] Rad In - 06/30/2020 9:32 AM EST [facility] - Ultrasound Program Exam Date: 06/30/2020 Exam Type: Ortho Operations Examiner: Gigi Harrell Attending: Gigi Harrell Worksheet: Ortho [...] Documents on File Type Date Recorded Patient Increment Manager Expl 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 Advanced Directive Advanced Directive Advanced Directive Advanced Directive Advanced Directive Advanced Directive Advanced Directive Advanced Directive
--- OUTSIDE RECORDS SUMMARY | 2023-02-20 21:44 | External Medical Summary | Summary of Care ---
Author Name Unknown Organization [place] [address] Care Team Providers Care Lead Painter Name Role Phone Armani Hough MD Primary Care Provider + [phone] Reason for Visit * Reason Comments Joint Pain right hip Encounter Details Date Type Department Care Team Description 01/20/2020 Office Visit [facility]opaed[facility] [address] [facility] [address] Gigi Harrell, DO [address] [place] [address] [phone] Greater trochanteric pain syndrome of right lower extremity*; Trochanteric bursitis of right hip Allergies No Known Allergiesdocumented as of this encounter (statuses as of 01/20/2020) Medications Medication Sig Dispensed Refills Start Date End Date Status LISINOPRIL 40 MG PO TABS One pill by mouth once a day from [place] 90 Tab 3 12/13/2011 Active TOPROL XL 50 MG PO TB24 One pill by mouth twice a day from [place] 90 Tab 3 12/13/2011 Active VIAGRA 100 MG PO TABSIndications:Impoten ce of organic origin one as needed 6 Tab 5 04/26/2013 Active triamcinolone acetonide (ARISTOCORT) 0.1 % creamIndications:Other psoriasis Apply topically to affected area 2 times a day as needed for Itching. To affected area of body. 80 g 3 08/26/2014 Active Cholecalciferol (VITAMIN D) 2000 UNITS Tablet Take 2,000 Units by mouth daily. 0 Active BuPROPion HCl ER, SR, 200 MG TB12 Take 200 mg by mouth 2 times a day. 1 twice daily 0 05/26/2016 Active traZODone (DESYREL) 100 MG TabletIndications:Persi stent insomnia TAKE 1/2 TABLET DAILY AT BEDTIME 90 Tab 1 04/17/2017 Active sertraline (ZOLOFT) 25 MG Tablet Take 1 Tab by mouth daily. 30 Tab 5 10/09/2018 Active predniSONE (DELTASONE) 10 MG TabletIndications:Prima ry osteoarthritis of both hips One daily with food 90 Tab 1 05/03/2019 Active baclofen (LIORESAL) 10 MG Tablet TAKE 2 TABLETS BY MOUTH IN THE MORNING AND 1 TABLET IN THE EVENING 270 Tab 1 06/26/2019 Active omeprazole (PRILOSEC) 20 MG CPDRIndications:Esophag eal reflux TAKE 1 CAPSULE DAILY 90 Cap 3 07/22/2019 Active famotidine (PEPCID) 20 MG TabletIndications:Gastr oesophageal reflux disease with esophagitis Take 1 Tab by mouth daily. 90 Tab 1 08/16/2019 Active tacrolimus (PROTOPIC) 0.1 % ointmentIndications:Oth er psoriasis Apply to psoriasis on the genitals twice daily as needed for flares. 60 g 2 08/28/2019 Active atorvaSTATin (LIPITOR) 40 MG Tablet TAKE 1 TABLET BY MOUTH AT BEDTIME 90 Tab 3 10/15/2019 Active Hydrocortisone 2.5 % ointmentIndications:Leno matitis Apply to rash on the face twice daily x 3-4 days, then 2-3 x's per week. 15 g 1 12/05/2019 Active zoster vac recomb adjuvanted (SHINGRIX) 50 MCG/0.5ML injectionIndications:Ne ed for vaccination for zoster Inject 0.5 mL into a large muscle now and repeat dose in 60 to 180 days 1 Each 1 12/09/2019 Active Hospital, Clinic, or Other Facility Administered Medication Ordered Dose Route Frequency Start Date End Date Status ROPivacaine 0.5% 3 mL - DEPO-Medrol 40 mg/mL 1 mL inj 4 mLIndications:Greater trochanteric pain syndrome of right lower extremity 4 mL IJ ONCE 01/20/2020 01/20/2020 Active documented as of this encounter (statuses as of 01/20/2020) Active Problems Problem Noted Date Essential tremor [...] as of this encounter (statuses as of 01/20/2020) Resolved Problems Problem Noted Date Resolved Date [...] Lipid Taxonomy. Other chronic sinusitis 10/17/19 18 Strap Cutter's cramp 03/28/2019 documented as of this encounter (statuses as of 01/20/2020) Immunizations Name Administration Dates Next Due Pneumococcal [...] file Not on file Not on file Travel History Travel Start Travel End documented as of this encounter Last Filed Vital Signs Vital Sign Reading Time Taken Comments Blood Pressure - - Pulse - - Temperature 35.2 C (95.4 F) 01/20/2020 10:30 AM E DT Respiratory Rate - - [...] encounter Progress Notes * Gigi Harrell, - 01/20/2020 10:50 AM EDT Cuong Li [id number] INJECTION NOTE Cuong Li is a 64 year old male who presents to [facility] for Right trochanteric bursa. Last injected 3 months ago he got relief for 2-3 months Physical Exam General: in no acute distress Mood and Affect: normal Gait and Station: mildly antalgic Assessment and Plan: f/u PRN 1) Greater trochanteric pain syndrome of right lower extremity (Primary) - ROPivacaine 0.5% 3 mL - DEPO-Medrol 40 mg/mL 1 mL inj 4 mL - POINT OF CARE US MAJOR JOINT INJECTION, ORTHO Trochanteric bursitis of right hip - POINT OF CARE US MAJOR JOINT INJECTION, ORTHO Gigi Harrell DO Primary Care Sports Medicine [facility] [place] [address] Procedure note (trochanteric bursa), right [...] documented in this encounter Nursing Notes * Tiffanie Angela ATC - 01/20/2020 10:31 AM EDT Pt here for R hip injection. Tiffanie Angela ATC documented in this encounter Plan of Treatment Upcoming Encounters Date Type Specialty Care Team Description 01/20/2020 Imaging Radiology 02/10/2020 Pandemic Screening Ancillary Trinh, Pre Surgical Covid Testing Radha [address] [place] [address] 02/12/2020 Hospital Encounter Endoscopy Antoinette Godinez MD [address] [place] [address] [phone] 02/12/2020 Surgery Endoscopy Antoinette Godinez MD [address] [facility] [place] [address] [phone] COLONOSCOPY FLEXIBLE PROXIMAL DIAGNOSTIC 03/17/2020 Office Visit Dermatology Nikia Canales MD [address] [place] [address] [phone] 06/12/2020 Office Visit Internal Medicine Armani Hough MD [address] [place] [address] [place] [address] 01/21/2021 Office Visit Neurology Lynn Hoover MD [address] [place] [address] [phone] Scheduled Orders Name Type Priority Associated Diagnoses Orde r Schedule POINT OF CARE US MAJOR JOINT INJECTION, ORTHO Medical Imaging Routine Greater trochanteric pain syndrome of right lower extremity Trochanteric bursitis of right hip Ordered: 01/20/2020 Health Maintenance Due Date Last Done Comments Zoster Vaccines (1 of 2) 07/21/2003 COLONOSCOPY-EVERY 3 YRS AGES 18-100 06/03/2019 06/03/2016, 06/03/2016, 10/15/2010 *DEPRESSION SCREENING,ANNUAL FOR PTS 12 AND OVER 10/13/2019 Influenza Vaccine (FLU shot) (#1) 2019 03/01/2019, 03/01/2019, 03/08/2018, Additional history exists DTaP,Tdap,and Td Vaccines (2 - Td) 12/12/2021 12/13/2011, 07/06/2006 DIABETES SCREEN EVERY 3 YRS-AGE 45 AND ABOVE 01/05/2023 01/06/2020, 09/12/2018, 09/11/2017, Additional history exists LIPID SCREEN EVERY 5 YRS-MEN AGE 35-75 01/05/2025 01/06/2020, 09/12/2018, 09/11/2017, Additional history exists Pneumococcal Vaccine: 65+ Years Completed 03/01/2019, 09/18/2013, 12/18/2012, Additional history exists MENINGOCOCCAL (MENACTRA/MENVEO) Aged Out No longer eligible based on patient's age to complete this topic documented as of this encounter Implants Not on filedocumented as of this encounter Visit Diagnoses Diagnosis Greater trochanteric pain syndrome of right lower extremity- Primary Trochanteric bursitis of right hip Enthesopathy of hip region documented in this encounter Advance Directives Documents on File Type Date Recorded Patient Margin Trimmer Expl 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 Advanced Directive
--- OUTSIDE RECORDS SUMMARY | 2023-02-20 21:44 | External Medical Summary | Summary of Care ---
Author Name Unknown Organization [place] [address] Care Team Providers Care Manufacturing Test Technician Name Role Phone Armani Hough MD Primary Care Provider + [phone] Reason for Visit * Reason Comments Joint Pain right hip Encounter Details Date Type Department Care Team Description 01/20/2020 Office Visit Orthopaed[facility] [address] [facility] [address] iGgi Harrell, DO [address] [place] [address] [phone] Greater trochanteric pain syndrome of right lower extremity*; Trochanteric bursitis of right hip Allergies No Known Allergiesdocumented as of this encounter (statuses as of 01/20/2020) Medications Medication Sig Dispensed Refills Start Date End Date Status LISINOPRIL 40 MG PO TABS One pill by mouth once a day from [place] 90 Tab 3 12/13/2011 Active TOPROL XL [...] extremity 4 mL IJ ONCE 01/20/2020 01/20/2020 Ended documented as of this encounter (statuses [...] Taxonomy. Other chronic sinusitis 10/17/19 18 Supervisor In Circuit Testing's cramp 03/28/2019 documented as of this encounter [...] - 01/20/2020 10:50 AM EDT Cuong Li [id number] INJECTION NOTE Cuong Li is a 64 year old male who presents to [facility] for Right trochanteric bursa. Last [...] Gigi Harrell DO Primary Care Sports Medicine [facility] [place] [address] Procedure note (trochanteric bursa), right [...] Encounters Date Type Specialty Care Team Description 02/10/2020 Pandemic Screening Ancillary Trinh, Pre Surgical Covid Testing [facility] [address] [place] [address] 02/12/2020 Hospital Encounter Endoscopy Antoinette Godinez MD [address] [place] [address] [phone] 02/12/2020 Surgery Endoscopy Antoinette Godinez MD [address] [place] [address] [phone] COLONOSCOPY FLEXIBLE PROXIMAL DIAGNOSTIC 03/17/2020 Office Visit Dermatology Nikia Canales MD [address] [place] [address] [phone] 06/12/2020 Office Visit Internal Medicine Armani Hough MD [address] [place] [address] [place] [address] [phone] 01/21/2021 Office Visit Neurology Lynn Hoover MD [address] [place] [address] [phone] Scheduled Orders Name Type Priority Associated Diagnoses [...] of hip region documented in this encounter Administered Medications Inactive Administered Medications - up to 3 most recent administrations Medication Order MAR Action Action Date Dose Rate Site ROPivacaine 0.5% 3 mL - DEPO-Medrol 40 mg/mL 1 mL inj 4 mL 4 mL, Injection, ONCE, 01/20/20 at 1130, For 1 dose, ROPivacaine 0.5 % 3 mL DEPO-Medrol 40 mg/mL 1 mL TOTAL VOLUME = 4 mL REFRIGERATE AND SHAKE WELL, Given 01/20/2020 12:22 PM EDT 4 mL Hip Right documented in this encounter Advance Directives Documents on File Type Date Recorded Patient Finance Lecturer Expl 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 Advanced Directive
--- OUTSIDE RECORDS SUMMARY | 2023-02-20 21:44 | External Medical Summary | Summary of Care ---
Author Name Unknown Organization [place] [address] Care Team Providers Care Parcel Post Clerk Name Role Phone Armani Hough MD Primary Care Provider + [phone] Encounter Details Date Type Department Care Team Description 01/08/2020 Orders Only Internal Medicine [address] [address] Armani Hough MD [address] [place] [address] [place] [address] [phone] Allergies No Known Allergiesdocumented as of this encounter (statuses as of 01/08/2020) Medications Medication Sig Dispensed Refills Start Date End Date Status LISINOPRIL 40 MG PO TABS One pill by mouth once a day from [place] 90 Tab 3 12/13/2011 Active TOPROL XL 50 MG PO TB24 One pill by mouth twice a day from [place] 90 Tab 3 12/13/2011 Active VIAGRA 100 [...] 180 days 1 Each 1 12/09/2019 Active documented as of this encounter (statuses as of 01/08/2020) Active Problems Problem Noted Date Essential tremor [...] as of this encounter (statuses as of 01/08/2020) Resolved Problems Problem Noted Date Resolved Date [...] Taxonomy. Other chronic sinusitis 10/17/19 18 Head Refrigeration Engineer's cramp 03/28/2019 documented as of this encounter (statuses as of 01/08/2020) Immunizations Name Administration Dates Next Due Pneumococcal [...] file Travel History Travel Start Travel End COVID-19 Exposure Response Date Recorded In the last month, have you been in contact with someone who was confirmed or suspected to have Coronavirus / COVID-19? No / Unsure 12/09/2019 10:37 AM EDT documented as of this encounter Functional Status [...] Date Type Specialty Care Team Description 01/20/2020 Office Visit Neurology Lynn Hoover MD [address] [place] [address] [phone] 01/20/2020 Office Visit Orthopedics Gigi Harrell DO [address] [place] [address] 02/10/2020 Pandemic Screening Ancillary Trinh, Pre Surgical Covid Testing [facility] [address] [place] [address] 02/12/2020 Hospital Encounter Endoscopy Antoinette Godinez MD [address] [place] [address] [phone] 02/12/2020 Surgery Endoscopy Antoinette Godinez MD [address] [place] [address] [phone] COLONOSCOPY FLEXIBLE PROXIMAL DIAGNOSTIC 03/17/2020 Office Visit Dermatology Nikia Canales MD [address] [place] [address] [phone] 06/12/2020 Office Visit Internal Medicine Armani Hough MD [address] [place] [address] [place] [address] Health Maintenance Due Date Last Done Comments Zoster Vaccines (1 of 2) 07/21/2003 COLONOSCOPY-EVERY 3 YRS AGES 18-100 06/03/2019 06/03/2016, 06/03/2016, 10/15/2010 *BASIC METABOLIC PANEL (BMP) FOR HTN YEARLY 10/13/2019 *DEPRESSION SCREENING,ANNUAL FOR PTS 12 AND OVER 10/13/2019 Influenza Vaccine (FLU shot) (#1) 2019 03/01/2019, 03/01/2019, 03/08/2018, Additional history exists DIABETES SCREEN EVERY 3 YRS-AGE 45 AND ABOVE 09/12/2021 09/12/2018, 09/11/2017, 09/08/2016, Additional history exists DTaP,Tdap,and Td Vaccines (2 - Td) 12/12/2021 12/13/2011, 07/06/2006 LIPID SCREEN EVERY 5 YRS-MEN AGE 35-75 09/13/2023 09/12/2018, 09/11/2017, 09/08/2016, Additional history exists Pneumococcal Vaccine: 65+ Years Completed 03/01/2019, 09/18/2013, 12/18/2012, Additional history exists MENINGOCOCCAL (MENACTRA/MENVEO) Aged Out No longer eligible based on patient's age to complete this topic documented as of this encounter Implants Not on filedocumented as of this encounter Procedures Procedure Name Priority Date/Time Associated Diagnosis Comments CHEMISTRY-OUTSIDE Routine 01/06/2020 documented in this encounter Results * CHEMISTRY-OUTSIDE (01/06/2020) CREATININE-OUTSIDE LAB 1.0 0.6 - 1.5 MG/DL OUTSIDE LAB (SEE SCANNED REPORT) EGFR-OUTSIDE LAB >60 >60 ML/MIN OUTSIDE LAB (SEE SCANNED REPORT) POTASSIUM-OUTSIDE LAB 4.6 3.6 - 5.1 MMOL/L OUTSIDE LAB (SEE SCANNED REPORT) GLUCOSE-OUTSIDE LAB 97 70 - 99 MG/DL OUTSIDE LAB (SEE SCANNED REPORT) HOURS FASTING OUTSIDE LAB (S EE SCANNED REPORT) TRIGLYCERIDES-OUTSIDE LAB 100 <150 MG/DL OUTSIDE LAB (SEE SCANNED REPORT) CHOLESTEROL-OUTSIDE LAB 186 <200 MG/DL OUTSIDE LAB (SEE SCANNED REPORT) HDL-OUTSIDE LAB 56.9 40.0 - 60.0 MG/DL OUTSIDE LAB (SEE SCANNED REPORT) CHOL/HDL RATIO-OUTSIDE LAB OUTSIDE LAB (SEE SCANNED REPORT) LDL (CALCULATED)-OUTSIDE LAB 109(A) 5 - 100 MG/DL OUTSIDE LAB (SEE SCANNED REPORT) LDL (DIRECT MEASURE)-OUTSIDE LAB OUTSIDE LAB (SEE SCANNED REPORT) HEMOGLOBIN, [id number]-[id number] LAB OUTSIDE LAB (SEE SCANNED REPORT) PHOSPHORUS-OUTSIDE LAB OUTSIDE LAB (SEE SCANNED REPORT) PTH-OUTSIDE LAB OUTSIDE LAB (SEE SCANNED REPORT) MICROALBUMIN RATIO-OUTSIDE LAB OUTSIDE LAB (SEE SCANNED REPORT) PROTEIN, UA-OUTSIDE LAB OUTSIDE LAB (SEE SCANNED REPORT) HEMOGLOBIN-OUTSIDE LAB 13.4 12.4 - 17.3 G/DL OUTSIDE LAB (SEE SCANNED REPORT) CHEMISTRY COMMENT-OUTSIDE LAB Comment:SEE SCAN VA: VD25, B12, PSA, LIPID PANEL, CMP, CBC OUTSIDE LAB (SEE SCANNED REPORT) Specimen Narrative Performed At Performing Organization Address City/State/Zipcod e Phone Number OUTSIDE LAB (SEE SCANNED REPORT) documented in this encounter Advance Directives Documents on File Type Date Recorded Patient Ball Warper Tender Expl 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 Advanced Directive
--- OUTSIDE RECORDS SUMMARY | 2023-02-20 21:44 | External Medical Summary | Summary of Care ---
Author Name Unknown Organization [place] [address] Care Team Providers Care Validation Leader Name Role Phone Armani Hough MD Primary Care Provider + [phone] Reason for Visit * Reason Comments Pt Portal Med Renewal Encounter Details Date Type Department Care Team Description 12/05/[address] [facility] [address] [place] [address] Margi Love MD [address] [place] [address] [phone] Dermatitis Allergies No Known Allergiesdocumented as of this encounter (statuses as of 12/05/2019) Medications Medication Sig Dispensed Refills Start Date End Date Status LISINOPRIL 40 MG PO TABS One pill by mouth once a day from [place] 90 Tab 3 12/13/2011 Active TOPROL XL 50 MG PO TB24 One pill by mouth twice a day from [place] 90 Tab 3 12/13/2011 Active VIAGRA 100 [...] 5 10/09/2018 Active predniSONE (DELTASONE) 10 MG TabletIndications:Pr imary osteoarthritis of both hips One daily with food 90 Tab 1 05/03/2019 Active baclofen (LIORESAL) 10 MG TabletIndications:Ri b pain on right side Take 1 Tab by mouth 2 times a day. 20 Tab 0 05/21/2019 Active baclofen (LIORESAL) 10 MG Tablet TAKE 2 TABLETS BY MOUTH IN THE MORNING AND 1 TABLET IN THE EVENING 270 Tab 1 06/26/2019 Active omeprazole (PRILOSEC) 20 MG CPDRIndications:Esop hageal reflux TAKE 1 CAPSULE DAILY 90 Cap 3 07/22/2019 Active famotidine (PEPCID) 20 MG TabletIndications:Ga stroesophageal reflux disease with esophagitis Take 1 Tab by mouth daily. 90 Tab 1 08/16/2019 Active tacrolimus (PROTOPIC) 0.1 % ointmentIndications: Other [...] per week. 15 g 1 12/05/2019 Active Hydrocortisone 2.5 % ointmentIndications: Dermatitis Apply to rash on the face twice daily x 3-4 days, then 2-3 x's per week. 15 g 1 08/28/2019 12/05/2019 Discontinue d(Refill) documented as of this encounter (statuses as of 12/05/2019) Active Problems Problem Noted Date Essential tremor [...] as of this encounter (statuses as of 12/05/2019) Resolved Problems Problem Noted Date Resolved Date [...] Lipid Taxonomy. Other chronic sinusitis 10/17/19 18 Power Superintendent's cramp 03/28/2019 documented as of this encounter (statuses as of 12/05/2019) Immunizations Name Administration Dates Next Due Pneumococcal [...] Travel End documented as of this encounter Functional Status [...] Telephone Encounter - Margi Love MD - 12/05/2019 1:42 PM EDT Signed Prescriptions: Disp Refills Hydrocortisone 2.5 % ointment 15 g 1 Sig: Apply to rash on the face twice daily x 3-4 days, then 2-3 x's per week.Authorizing Provider: MARGI LOVE * Telephone Encounter - Annalee Rangel LPN - 12/05/2019 1:30 PM EDT Pending Prescriptions: Disp Refills Hydrocortisone 2.5 % ointment 15 g 1 Sig: Apply to rash on the face twice daily x 3-4 days, then 2-3 x's per week. * Telephone Encounter - Annalee Rangel LPN - 12/05/2019 1:30 PM EDT Pending Prescriptions: Disp Refills Hydrocortisone 2.5 % ointment 15 g 1 Sig: Apply to rash on the face twice daily x 3-4 days, then 2-3 x's per week. * Telephone Encounter - ElianechrissieCarrie, RUTHY - 12/05/2019 10:55 AM EDT Pending Prescriptions: Disp Refills Hydrocortisone 2.5 % ointment 15 g 1 Sig: Apply to rash on the face twice daily x 3-4 days, then 2-3 x's per week. 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 GENERALIZED ANXIETY DIS F41.1 Major depressive disorder, single episode, moderate (HCC) F32.1 ADVANCE DIRECTIVE INFORMATION Raynaud's syndrome I73.00 Hyperlipidemia LDL goal <130 E78.5 History of squamous cell carcinoma Z85.89 History of basal cell carcinoma Z85.828 Persistent insomnia G47.00 Essential tremor G25.0 Labs: CREATININE-OUTSIDE LAB(MG/DL) Carleen Dt/Tm Resulted Value Status 09/12/18 10/10/18 0.9 FINAL POTASSIUM-OUTSIDE LAB(MMOL/L) Carleen Dt/Tm Resulted Value Status 09/12/18 10/10/18 5.0 FINAL TSH(uIU/mL) Carleen Dt/Tm Resulted Value Status 07/14/06 9:11A 07/14/06 1.90 FINAL LDL (CALCULATED)-OUTSIDE LAB(MG/DL) Carleen Dt/Tm Resulted Value Status 09/12/18 10/10/18 113* FINAL 09/11/17 09/27/17 117* FINAL ALT-OUTSIDE LAB(IU/L) Carleen Dt/Tm Resulted Value Status 09/08/16 10/14/16 33 FINAL Hemoglobin AIC Results: HEMOGLOBIN, [id number] LAB(%) Carleen Dt/Tm Resulted Value Status 09/08/16 10/14/16 5.4 FINAL 05/12/14 06/12/14 5.8 FINAL * Telephone Encounter - Rober Chavez LPN - 12/05/2019 10:40 AM EDT Message from [employer]er: Cuong Li would like a refill of the following medications: Hydrocortisone 2.5 % ointment [Margi Love MD] Preferred pharmacy: [id number] [id number] documented in this encounter Plan of Treatment Upcoming Encounters Date Type Specialty Care Team Description 12/09/2019 Office Visit Internal Medicine Armani Hough MD [address] [place] [address] [place] [id number] 01/20/2020 Office Visit Neurology Lynn Hoover MD [address] [place] [address] [phone] 03/17/2020 Office Visit Dermatology Margi Love MD [address] [place], [place] [id number] Health Maintenance Due Date Last Done Comments Zoster Vaccines (1 of 2) 07/21/2003 COLONOSCOPY-EVERY 3 YRS AGES 18-100 06/03/2019 06/03/2016, 06/03/2016, 10/15/2010 *BASIC METABOLIC PANEL (BMP) FOR HTN YEARLY 10/13/2019 *DEPRESSION SCREENING,ANNUAL FOR PTS 12 AND OVER 10/13/2019 Influenza Vaccine (FLU shot) (#1) 2020 03/01/2019, 02/08/2018, 02/09/2017, Additional history exists DIABETES SCREEN EVERY 3 [...] Documents on File Type Date Recorded Patient Rack Puncher Expl 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 Advanced Directive
--- OUTSIDE RECORDS SUMMARY | 2023-02-20 21:44 | External Medical Summary | Summary of Care ---
Author Name Unknown Organization [place] [address] Care Team Providers Care Laboratory Phlebotomist Name Role Phone Armani Hough MD Primary Care Provider + [phone] Reason for Visit * Reason Comments Return Neuro Encounter Details Date Type Department Care Team Description 01/20/2020 Office Visit Neurology [facility] [address] [place] [address] Lynn Hoover MD [address] [place], [place] [id number] Essential tremor*; Forensic Artist's cramp Allergies No Known Allergiesdocumented as of this encounter (statuses as of 01/20/2020) Medications Medication Sig Dispensed Refills Start Date End Date Status LISINOPRIL 40 MG PO TABS One pill by mouth once a day from [place] 90 Tab 3 12/13/2011 Active TOPROL XL 50 MG PO TB24 One pill by mouth twice a day from [place] 90 Tab 3 12/13/2011 Active VIAGRA 100 [...] Lipid Taxonomy. Other chronic sinusitis 10/17/19 18 Forensic Artist's cramp 03/28/2019 documented as of this encounter [...] Sign Reading Time Taken Comments Blood Pressure 120/68 01/20/2020 8:36 AM EDT Pulse 64 01/20/2020 8:36 AM EDT Temperature 36.2 C (97.2 F) 01/20/2020 8:36 AM ED T Respiratory Rate 16 01/20/2020 8:36 AM EDT Oxygen Saturation - - Inhaled Oxygen Concentration - - Weight 90.4 kg (199 lb 3.2 oz) 01/20/2020 8:36 A M EDT Height - - Body Mass Index 28.58 10/09/2018 10:29 AM EDT documented in this encounter Functional [...] Progress Notes * Lynn Hoover MD - 01/20/2020 9:22 AM EDT The patient comes today in follow-up a central tremor and writing dystonia as referred by who will be receiving a copy of this note. The patient notes no change in medical surgical social or family history. 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 The patient has taken in the past amantadine atenolol baclofen and gabapentin Keppra primidone propanolol and Artane Past Medical History: Diagnosis Date Avulsion of [...] Rosacea Rupture of hamstring tendon 05/26/2017 right Forensic Artist's cramp Past Surgical History: Procedure Laterality Date COLONOSCOPY W/ LESION REMOVAL, SNARE 10/15/2010 polyp x1, path shows adenomatous tissue repeat in 5 years COLONOSCOPY, DIAGNOSTIC (RECTUM) 06/03/2016 7,6,2 mm polyps ascending, 6,3 mm polyps transverse colon Repeat 3 years/COLONOSCOPY FLEXIBLE PROXIMAL DIAGNOSTIC performed by Antoinette Godinez MD at ENDOSCOPY [facility] CT LOWER EXTREMITY W CONTRAST Right 05/26/2017 complete avulsion right hamstring tendon with 3 cm gap, mild hip arthritis, calcific tendonitis right gluteus medius CT SINUSES WO CONTRAST 10/09/09 chronic sinusitis MRI C SPINE W CONT 03/10/14 severe bilateral foramen narrowing L3-4, L4-5, L5-S1 and severe left neural foramen narrowing L2-3 US ABDOMEN LIMITED 05/30/12 normal, no kidney stones Social History Socioeconomic History Marital status: Spouse name: Not on file Number of children: 2 Years of education: Not on file Highest education level: Not on file Occupational History 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 Employer: [employer] Social Needs Financial resource strain: Not on file Food insecurity: Worry: Never true Inability: Never true Transportation needs: Medical: Not on file Non-medical: Not on file Tobacco Use Smoking status: Former Smoker Packs/day: 0.25 Years: 40.00 Pack years: 10.00 Types: Cigarettes Last attempt to quit: 05/26/2014 Years since quittin.6 Smokeless tobacco: Never Used Tobacco comment: quit for 10 years then restarted Substance and Sexual Activity Alcohol use: Yes Alcohol/week: 5.0 standard drinks Types: 6 12 oz of beer per week Comment: occ Drug use: No Sexual activity: Yes Partners: Female Lifestyle Physical activity: Days per week: Not on file Minutes per session: Not on file Stress: Not on file Relationships Social connections: Talks on phone: Not on file Gets together: Not on file Attends synagogue service: Not on file Active member of club or organization: Not on file Attends meetings of clubs or organizations: Not on file Relationship status: Not on file Intimate partner violence: Fear of current or ex partner: Not on file Emotionally abused: Not on file Physically abused: Not on file Forced sexual activity: Not on file Other Topics Concern Not on file Social History Narrative for 26 years. Two children in good health. 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 [employer] Vaping/E-Cigarette Use Vaping/E-Cigarette Substances Vaping/E-Cigarette Devices Family History Problem Relation Age of Onset Hypertension Father Hypertension Sister Hypertension Sister Hypertension Sister Hypertension Brother Cancer Aunt (Unspecified) Cancer Aunt (Unspecified) Arthritis Mother Arthritis Sister Diabetes Father Stroke Father Other (Tremors) None Other (Parkinson's Disease) None Outpatient Medications Marked as Taking for the 01/20/20 encounter (Office Visit) with Lynn Hoover MD Medication Sig zoster vac recomb adjuvanted (SHINGRIX) 50 MCG/0.5ML injection Inject 0.5 mL into a large muscle now and repeat dose in 60 to 180 days Hydrocortisone 2.5 % ointment Apply to rash on the face twice daily x 3-4 days, then 2-3 x's per week. atorvaSTATin (LIPITOR) 40 MG Tablet TAKE 1 TABLET BY MOUTH AT BEDTIME tacrolimus (PROTOPIC) 0.1 % ointment Apply to psoriasis on the genitals twice daily as needed for flares. famotidine (PEPCID) 20 MG Tablet Take 1 Tab by mouth daily. omeprazole (PRILOSEC) 20 MG CPDR TAKE 1 CAPSULE DAILY baclofen (LIORESAL) 10 MG Tablet TAKE 2 TABLETS BY MOUTH IN THE MORNING AND 1 TABLET IN THE EVENING predniSONE (DELTASONE) 10 MG Tablet One daily with food sertraline (ZOLOFT) 25 MG Tablet Take 1 Tab by mouth daily. traZODone (DESYREL) 100 MG Tablet TAKE 1/2 TABLET DAILY AT BEDTIME BuPROPion HCl ER, SR, 200 MG TB12 Take 200 mg by mouth 2 times a day. 1 twice daily Cholecalciferol (VITAMIN D) 2000 UNITS Tablet Take 2,000 Units by mouth daily. triamcinolone acetonide (ARISTOCORT) 0.1 % cream Apply topically to affected area 2 times a dayas needed for Itching. To affected area of body. VIAGRA 100 MG PO TABS one as needed LISINOPRIL 40 MG PO TABS One pill by mouth once a day from [place] TOPROL XL 50 MG PO TB24 One pill by mouth twice a day from [place] Review of patient's allergies indicates: No Known Allergies Review of systems is notable for hair loss and joint pain all others negative Filed Vitals: 01/20/20 0836 BP: 120/68 Pulse: 64 Resp: 16 Temp: 36.2 C (97.2 F) TempSrc: Tympanic Weight: 90.4 kg (199 lb 3.2 oz) On exam the patient is awake and alert with normal speech and language affect is appropriate. This no facial masking. There is normal blink frequency. There is no resting tremor or cogwheel rigidity.There is full strength in the upper and lowers. There is a mild tremor on intention on the right and moderate on the left. Kaov-bi-gqng is normal gait is normal patient arises from a chair easily. When the patient attempted hand writing with his left hand he develops a prompt dystonia. 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 Return yearly documented in this encounter Nursing Notes * Kiana Willis LPN - 01/20/2020 8:42 AM EDT Pt states he is doing about the same. documented in this encounter Plan of Treatment Upcoming Encounters Date Type Specialty Care Team Description 01/20/2020 Office Visit Orthopedics Gigi Harrell, DO [address] [place] [address] 02/10/2020 Pandemic Screening Ancillary Trinh, Pre Surgical Covid Testing Radha [address] [place] [address] 02/12/2020 Hospital Encounter Endoscopy Antoinette Godinez MD [address] [place] [address] [phone] 02/12/2020 Surgery Endoscopy Antoinette Godinez MD [address] [place] [address] [phone] COLONOSCOPY FLEXIBLE PROXIMAL DIAGNOSTIC 03/17/2020 Office Visit Dermatology Nikia Canales MD [address] [place] [address] [phone] 06/12/2020 Office Visit Internal Medicine Armani Hough MD [address] [place] [address] [place] [address] [phone] 01/21/2021 Office Visit Neurology Lynn Hoover MD [address] [place] [address] [phone] Health Maintenance Due Date Last Done Comments [...] as of this encounter Visit Diagnoses Diagnosis Essential tremor- Primary Essential and other specified forms of tremor Forensic Artist's cramp Other somatoform disorders documented in this encounter Advance Directives Documents on File Type Date Recorded Patient Land Manager Expl 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 Advanced Directive
--- OUTSIDE RECORDS SUMMARY | 2023-02-20 21:44 | External Medical Summary | Summary of Care ---
Author Name Unknown Organization [place] [address] Care Team Providers Care Cable Splicer Helper Name Role Phone Armani Hough MD Primary Care Provider + [phone] Encounter Details Date Type Department Care Team Description 12/09/2019 Orders Only Gastroenterology, [facility] [address] [place] [address] Antoinette Godinez MD [address] [facility] [place] [address] [phone] Pre-operative exam* Allergies No Known Allergiesdocumented as of this encounter (statuses as of 12/09/2019) Medications Medication Sig Dispensed Refills Start Date End Date Status LISINOPRIL 40 MG PO TABS One pill by mouth once a day from [place] 90 Tab 3 12/13/2011 Active TOPROL XL 50 MG PO TB24 One pill by mouth twice a day from [place] 90 Tab 3 12/13/2011 Active VIAGRA 100 [...] as of this encounter (statuses as of 12/09/2019) Active Problems Problem Noted Date Essential tremor [...] as of this encounter (statuses as of 12/09/2019) Resolved Problems Problem Noted Date Resolved Date [...] Lipid Taxonomy. Other chronic sinusitis 10/17/19 18 Production Cell Leader's cramp 03/28/2019 documented as of this encounter (statuses as of 12/09/2019) Immunizations Name Administration Dates Next Due Pneumococcal [...] as of this encounter Progress Notes * Carmencita Ulloa LPN - 12/09/2019 3:27 PM EDT coid documented in this encounter Plan of Treatment Upcoming Encounters Date Type Specialty Care Team Description 01/20/2020 Office Visit Neurology Lynn Hoover MD [address] [place] [address] [phone] 02/10/2020 Pandemic Screening Ancillary Trinh, Pre Surgical Covid Testing Radha [address] [place] [address] 02/12/2020 Hospital Encounter Endoscopy Antoinette Godinez MD [address] [place] [address] [phone] 02/12/2020 Surgery Endoscopy Antoinette Godinez MD [address] [place] [address] [phone] COLONOSCOPY FLEXIBLE PROXIMAL DIAGNOSTIC 03/17/2020 Office Visit Dermatology Nikia Canales MD [address] [place] [address] [phone] 06/12/2020 Office Visit Internal Medicine Armani Hough MD [address] [place] [address] [place] [address] Scheduled Orders Name Type Priority Associated Diagnoses Orde r Schedule COVID-19 Lab Routine Pre-operative exam Expected: 12/09/2019 (Approximate), Expires: 06/10/2020 Health Maintenance Due Date Last Done Comments [...] as of this encounter Visit Diagnoses Diagnosis Pre-operative exam- Primary Preoperative examination, unspecified documented in this encounter Advance Directives Documents on File Type Date Recorded Patient Calker Expl 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 Advanced Directive
--- OUTSIDE RECORDS SUMMARY | 2023-02-20 21:44 | External Medical Summary | Summary of Care ---
Author Name Unknown Organization [place] [address] Care Team Providers Care Supervisor Body Assembly Name Role Phone Armani Hough MD Primary Care Provider + [phone] Reason for Visit * Reason Comments Re-Check Immunizations Shingrix Encounter Details Date Type Department Care Team Description 12/09/2019 Office Visit Internal Medicine [address] [address] Armani Hough MD [address] [place] [address] [phone] Primary hypertension*; Major depressive disorder, single episode, moderate (HCC); Need for vaccination for zoster; Essential tremor; Hyperlipidemia LDL goal <130; Gastroesophageal reflux disease with esophagitis; Tobacco use disorder; Psoriasis Allergies No Known Allergiesdocumented as of this [...] 180 days 1 Each 1 12/09/2019 Active baclofen (LIORESAL) 10 MG TabletIndications:Ri b pain on right side Take 1 Tab by mouth 2 times a day. 20 Tab 0 05/21/2019 06/08/2019 Discontinue d(End of Procedure) documented as of [...] Lipid Taxonomy. Other chronic sinusitis 10/17/19 18 Account Processor's cramp 03/28/2019 documented as of this encounter [...] Never Used Comments:quit for 10 years t elba restarted Alcohol Use Drinks/Week oz/Week Comments Yes [...] AM EDT documented as of this encounter Last Filed Vital Signs Vital Sign Reading Time Taken Comments Blood Pressure 122/76 12/09/2019 10:49 AM EDT Pulse 64 12/09/2019 10:49 AM EDT Temperature 36.1 C (97 F) 12/09/2019 10:49 AM EDT Respiratory Rate 16 12/09/2019 10:49 AM EDT Oxygen Saturation - - Inhaled Oxygen Concentration - - Weight 92.5 kg (204 lb) 12/09/2019 10:49 AM EDT Height - - Body Mass Index 29.27 10/09/2018 10:29 AM EDT documented in this [...] Progress Notes * Armani Hough MD - 12/09/2019 10:51 AM EDT No complaints of headache, trouble with vision or hearing. Eating well, with no bowel or bladder complaints. Denies chest pain or palpitations. Denies shortness of breath, PND, or orthopnea. No skin rashes or breakdown. No changes in mentation. The rest of a 10 point review of systems is negative. [facility] Health Maintenance addressed. Shingrix but nothing else at this time. He does not need meds currently. Past Medical History: Diagnosis Date Avulsion of [...] Rosacea Rupture of hamstring tendon 05/26/2017 right Account Processor's cramp \\ Past Surgical History: Procedure Laterality Date COLONOSCOPY W/ LESION REMOVAL, SNARE 10/15/2010 polyp x1, path shows adenomatous tissue repeat in 5 years COLONOSCOPY, DIAGNOSTIC (RECTUM) 06/03/2016 7,6,2 mm polyps ascending, 6,3 mm polyps transverse colon Repeat 3 years/COLONOSCOPY FLEXIBLE PROXIMAL DIAGNOSTIC performed by Antoinette Godinez MD at ENDOSCOPY [facility] CT LOWER EXTREMITY W CONTRAST Right 05/26/2017 complete avulsion right hamstring tendon with 3 cm gap, mild hip arthritis, calcific tendonitis right gluteus medius CT SINUSES WO CONTRAST 10/09/09 chronic sinusitis MRI C SPINE W CONT 03/10/14 severe bilateral foramen narrowing L3-4, L4-5, L5-S1 and severe left neural foramen narrowing L2-3 US ABDOMEN LIMITED 05/30/12 normal, no kidney stones Review of patient's allergies indicates: No Known Allergies Social History Socioeconomic History Marital status: Spouse name: Not on file Number of children: 2 Years of education: Not on file Highest education level: Not on file Occupational History 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 15 g 1 atorvaSTATin (LIPITOR) 40 MG Tablet TAKE 1 TABLET BY MOUTH AT BEDTIME 90 Tab 3 tacrolimus (PROTOPIC) 0.1 % ointment Apply to psoriasis on the genitals twice daily as needed for flares. 60 g 2 famotidine (PEPCID) 20 MG Tablet Take 1 Tab by mouth daily. 90 Tab 1 omeprazole (PRILOSEC) 20 MG CPDR TAKE 1 CAPSULE DAILY 90 Cap 3 baclofen (LIORESAL) 10 MG Tablet TAKE 2 TABLETS BY MOUTH IN THE MORNING AND 1 TABLET IN THE [id number] Tab 1 baclofen (LIORESAL) 10 MG Tablet Take 1 Tab by mouth 2 times a day. 20 Tab 0 predniSONE (DELTASONE) 10 MG Tablet One daily with food 90 Tab 1 sertraline (ZOLOFT) 25 MG Tablet Take 1 Tab by mouth daily. 30 Tab 5 traZODone (DESYREL) 100 MG [...] Tab 5 LISINOPRIL 40 MG PO TABS One pill by mouth once a day from [place] 90 Tab 3 TOPROL XL 50 MG PO TB24 One pill by mouth twice a day from [place] 90 Tab 3 Immunization History Administered Date(s) Administered Pneumococcal Conjugate Vacc, 13 Valent (Prevnar) 12/18/2012 Pneumococcal Polysaccharide PPV23 (Pneumovax) 12/18/2008, 09/18/2013, 03/01/2019 Seasonal Influenza, Quadrivalent, No Preserve, 6 Mons & Above, IM 02/08/2018 Seasonal Influenza, Quadrivalent, No Preserve, IM 03/16/2015, 01/15/2016, 02/09/2017, 03/01/2019 Seasonal Influenza, Trivalent, with Preserve, 3yr & Above, Split 05/08/2007, 01/06/2010, 02/17/2011, 02/16/2012, 01/24/2013, 01/07/2014 TD - Tetanus/Diptheria (ADULT) 07/06/2006 TDAP (age 10 and older)(Boostrix) 12/13/2011 LIPID PANEL Carleen Dt/Tm Resulted Value Status LDL CHOLESTEROL-OUTSIDE LAB (mg/dl) 09/10/13 10/02/13 106* FINAL BASIC METAB PANEL Carleen Dt/Tm Resulted Value Status BUN (mg/dL) 07/14/06:07/14/06 20 F CREATININE (mg/dL) 07/14/06:07/14/06 1.1 F SODIUM (mmol/L) 07/14/06:07/14/06 135 F POTASSIUM (mmol/L) 07/14/06:07/14/06 4.4 F CHLORIDE (mmol/L) 07/14/06:07/14/06 100 F CO2 (mmol/L) 07/14/06:07/14/06 27 F GLUCOSE (mg/dL) 07/14/06:07/14/06 101 F ANION GAP (mEq/L) 07/14/06:07/14/06 8 F CALCIUM (mg/dL) 07/14/06:07/14/06 9.6 F GFR ESTIMATED (mL/min) 07/14/06 9:07/14/06 >60.0 F O: Blood pressure 122/76, pulse 64, temperature 36.1 C (97 F), temperature source Tympanic, resp. rate 16, weight 92.5 kg (204 lb). General appearance: well developed, well nourished and in no acute distress. .Head normocephalic and atraumatic. No facial asymmetry. Eye exam; PEERLA, EOMI. No scleral icterus or nystagmus. Conjunctiva are pink and not injected. Oropharynx: no exudate, dentures and no pharyngeal inflammation. TMs and canals normal. No wax. Trachea is in the midline. Neck supple with no adenopathy or thyromegaly.No carotid bruits. Chest expands equally and is symmetrical with normal AP diameter. Lungs clear, with no wheezes, rales, or rhonchi. Heart: S1 and S2 normal. PMI not obviously displaced. Heart regular, no murmurs, gallops, clicks or rubs. No CVA tenderness. No calf swelling or tenderness. No pedal edema. No skin rashes. Extremities unremarkable. A: Primary hypertension (Primary) Major depressive disorder, single episode, moderate (HCC) Need for vaccination for zoster - zoster vac recomb adjuvanted (SHINGRIX) 50 MCG/0.5ML injection; Inject 0.5 mL into a large musclenow and repeat dose in 60 to 180 days Essential tremor Hyperlipidemia LDL goal <130 Gastroesophageal reflux disease with esophagitis Tobacco use disorder Psoriasis Follow Up: Return in about 6 months (around 06/10/2020) for Clinic Visit. | For: Clinic Visit | Check-out note: Schedule colonoscopy documented in this encounter Nursing Notes * Marina Partida LPN - 12/09/2019 10:48 AM EDT 6 month recheck documented in this encounter Plan of Treatment Upcoming Encounters Date Type Specialty Care Team Description 01/20/2020 Office Visit Neurology Lynn Hoover MD [address] [facility] [place] [address] [phone] 02/10/2020 Pandemic Screening Ancillary Trinh, Pre Surgical Covid Testing Radha [address] [facility] [address] 02/12/2020 Hospital Encounter Endoscopy Antoinette Godinez MD [address] [place] [facility] [place] [address] [phone] 02/12/2020 Surgery Endoscopy Antoinette Godinez MD [address] [place] [facility] [place] [address] [phone] COLONOSCOPY FLEXIBLE PROXIMAL DIAGNOSTIC 03/17/2020 Office Visit Dermatology Nikia Canales MD [address] [facility] [place] [address] [phone] 06/12/2020 Office Visit Internal Medicine Armani Hough MD [address] [place] [address] [place] [address] [phone] Health Maintenance Due Date Last Done Comments [...] (HCC) Major depressive disorder, single episode, moderate Need for vaccination for zoster Need for prophylactic vaccination and inoculation against other viral diseases Essential tremor Essential and other specified forms of tremor Hyperlipidemia LDL goal <130 Other and unspecified hyperlipidemia Gastroesophageal reflux disease with esophagitis Tobacco use disorder Psoriasis Other psoriasis documented in this encounter Advance Directives Documents on File Type Date Recorded Patient Airway Controller Expl 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 Advanced Directive"
--- OUTSIDE RECORDS SUMMARY | 2023-02-20 21:44 | External Medical Summary | Summary of Care ---
Author Name Unknown Organization [place] [address] Care Team Providers Care Welding Rod Coater Name Role Phone Armani Hough MD Primary Care Provider + [phone] Encounter Details Date Type Department Care Team Description 02/21/2020 Scan [facility]counter [facility] [id number] [place] [address] Gigi Harrell, DO [address] [place] [address] <No scans attached> Allergies No Known Active Allergiesdocumented as of this encounter (statuses as of 02/25/2020) Medications Medication Sig Dispensed Refills Start Date [...] 04/26/2013 Active triamcinolone acetonide (ARISTOCORT) 0.1 % creamIndications:Othe r psoriasis Apply topically to affected area 2 [...] 1 04/17/2017 Active sertraline (ZOLOFT) 25 MG TabletIndications:1/2 tablet in am,mid day and 1 tablet at bedtime Take 12.5 mg by mouth daily. Indications: 1/2 tablet in am,mid day and 1 tablet at bedtime 30 Tab 5 10/09/2018 Active baclofen (LIORESAL) 10 MG Tablet TAKE 2 TABLETS BY MOUTH IN THE MORNING AND 1 TABLET IN THE EVENING 270 Tab 1 06/26/2019 Active omeprazole (PRILOSEC) 20 MG CPDRIndications:Esoph ageal reflux TAKE 1 CAPSULE DAILY 90 Cap 3 07/22/2019 Active tacrolimus (PROTOPIC) 0.1 % ointmentIndications:O ther psoriasis Apply to psoriasis on the genitals twice daily as needed for flares. 60 g 2 08/28/2019 Active atorvaSTATin (LIPITOR) 40 MG Tablet TAKE 1 TABLET BY MOUTH AT BEDTIME 90 Tab 3 10/15/2019 Active Hydrocortisone 2.5 % ointmentIndications:D ermatitis Apply to rash on the face twice daily x 3-4 days, then 2-3 x's per week. 15 g 1 12/05/2019 Active zoster vac recomb adjuvanted (SHINGRIX) 50 MCG/0.5ML injectionIndications: Need for vaccination for zoster Inject 0.5 mL into a large muscle now and repeat dose in 60 to 180 days 1 Each 1 12/09/2019 Active documented as of this encounter (statuses as of 02/25/2020) Active Problems Problem Noted Date Essential tremor [...] as of this encounter (statuses as of 02/25/2020) Resolved Problems Problem Noted Date Resolved Date [...] Lipid Taxonomy. Other chronic sinusitis 10/17/19 18 Health And Safety Advisor's cramp 03/28/2019 documented as of this encounter (statuses as of 02/25/2020) Immunizations Name Administration Dates Next Due Pneumococcal [...] Office Visit Dermatology Nikia Canales MD [address] [place] [place] [address] [phone] 06/12/2020 Office Visit Internal Medicine Armani Hough MD [address] [place] [address] [place] [address] [phone] 01/21/2021 Office Visit [facility] [address] [facility] [address] [phone] Health Maintenance Due Date Last Done Comments [...] Documents on File Type Date Recorded Patient Tape Machine Tailer Expl 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 Advanced Directive Advanced Directive Advanced Directive
--- OUTSIDE RECORDS SUMMARY | 2023-02-20 21:44 | External Medical Summary | Summary of Care ---
Author Name Unknown Organization [place] [address] Care Team Providers Care Director [employer]ery [employer] Name Role Phone Armani Hough MD Primary Care Provider + [phone] Reason for Visit * Reason Comments eRx-Medication Refill Encounter Details Date Type Department Care Team Description 02/22/2020 Refill Internal Medicine [address] [address] Armani Hough MD [address] [place] [address] [phone] Primary osteoarthritis of both hips Allergies No Known Active Allergiesdocumented as of this encounter (statuses as of 02/24/2020) Medications Medication Sig Dispensed Refills Start Date [...] 04/26/2013 Active triamcinolone acetonide (ARISTOCORT) 0.1 % creamIndications:Ot her psoriasis Apply topically to affected area 2 times a day as needed for Itching. To affected area of body. 80 g 3 08/26/2014 Active Cholecalciferol (VITAMIN D) 2000 UNITS TabletIndications:a [...] 1 06/26/2019 Active omeprazole (PRILOSEC) 20 MG CPDRIndications:Eso phageal reflux TAKE 1 CAPSULE DAILY 90 Cap 3 07/22/2019 Active famotidine (PEPCID) 20 MG TabletIndications:G astroesophageal reflux disease with esophagitis Take 1 Tab by mouth daily. 90 Tab 1 08/16/2019 Active Additional Information Patient taking differently: 20 mg Oral DAILY, Indications: in evening, Reported on 02/04/2020 tacrolimus (PROTOPIC) 0.1 % ointmentIndications :Other psoriasis Apply to psoriasis on the genitals twice daily as needed for flares. 60 g 2 08/28/2019 Active atorvaSTATin (LIPITOR) 40 MG Tablet TAKE 1 TABLET BY MOUTH AT BEDTIME 90 Tab 3 10/15/2019 Active Hydrocortisone 2.5 % ointmentIndications :Dermatitis Apply to [...] WITH FOOD 90 Tab 1 02/24/2020 Active predniSONE (DELTASONE) 10 MG TabletIndications:P rimary osteoarthritis of both hips One daily with food 90 Tab 1 05/03/2019 0 Discontinued documented as of this encounter (statuses as of 02/24/2020) Active Problems Problem Noted Date Essential tremor [...] as of this encounter (statuses as of 02/24/2020) Resolved Problems Problem Noted Date Resolved Date [...] Lipid Taxonomy. Other chronic sinusitis 10/17/19 18 Human Resources File Clerk's cramp 03/28/2019 documented as of this encounter (statuses as of 02/24/2020) Immunizations Name Administration Dates Next Due Pneumococcal [...] encounter Miscellaneous Notes * Telephone Encounter - Tristan Coko MD - 02/24/2020 2:48 PM EDT Signed Prescriptions: Disp Refills predniSONE 10 MG Oral Tablet (DELTASONE) 90 Tab 1 Sig: TAKE 1 TABLET BY MOUTH EVERY DAY WITH FOOD Authorizing Provider: TRISTAN COOK * Telephone Encounter - Gigi Estevez [facility] - 02/24/2020 2:35 PM EDT Pending Prescriptions: Disp Refills predniSONE 10 MG Oral Tablet [Pharmacy Med*90 Tab 1 Sig: TAKE 1 TABLET BY MOUTH EVERY DAY WITH FOOD * Telephone Encounter - Gigi Estevez [facility] - 02/24/2020 2:35 PM EDT Refill pharmacists currently not authorized to approve refills for this class of medication per refill protocol. Please approve if appropriate. Thanks, Gigi Estevez, R.Ph. Clinical Pharmacist [facility] [phone] 02/24/2020,2:35 PM Pending Prescriptions: Disp Refills predniSONE 10 MG Oral Tablet [Pharmacy Med*90 Tab 1 Sig: TAKE 1 TABLET BY MOUTH EVERY DAY WITH FOOD Last Office/Telemedicine Visit: 12/09/2019 Next Office Visit: 06/12/2020 Scheduled Provider(s): Armani Hough MD If no future appointments scheduled, and last appointment is greater than a year ago, please schedule patient for a follow-up appointment Last date the medication was ordered: 05/03/19 Pharmacy: [id number] [id number] [facility] Is this request for a controlled substance?No Urine Drug Screen:No results found for this or any previous visit. Patient Phone Numbers Labs: Lab Results Component Value Date/Time CREAT 1.0 01/06/2020 CREAT 1.1 05/20/2015 10:03 AM POTASSIUM 4.4 05/20/2015 10:03 AM TSH 1.90 07/14/2006 09:11 AM LDLCALC 109 (A) 01/06/2020 LDLCALC 114 12/13/2011 08:15 AM LDLCHOL 106 (A) 09/10/2013 ALT 22 05/20/2015 10:03 AM HGBA1C 5.4 09/08/2016 documented in this encounter Plan of Treatment Upcoming Encounters Date Type Specialty Care Team Description 03/17/2020 Office Visit Dermatology Nikia Canales MD [address] [place] [address] [phone] 06/12/2020 Office Visit Internal Medicine Armani Hough MD [address] [place] [address] [place] [address] [phone] 01/21/2021 Office Visit Neurology Lynn Hoover MD [address] [place] [address] [phone] Health Maintenance Due Date Last Done Comments [...] Visit Diagnoses Diagnosis Primary osteoarthritis of both hips Primary localized osteoarthrosis, pelvic region and thigh documented in this encounter Advance Directives Documents on File Type Date Recorded Patient City Bailiff Expl 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 Advanced Directive Advanced Directive Advanced Directive
--- OUTSIDE RECORDS SUMMARY | 2023-02-20 21:44 | External Medical Summary ---
Author Name Unknown Address Unknown Organization [facility] USE ONLY!!! 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
--- OUTSIDE RECORDS SUMMARY | 2023-02-20 21:44 | External Medical Summary | Summary of Care ---
Author Name Unknown Organization [place] [address] Care Team Providers Care Field Service Technician Name Role Phone Armani Hough MD Primary Care Provider + [phone] Encounter Details Date Type Department Care Team Description 02/06/2020 Scan Encounter [facility] [id number] [place] [id number] Gigi Harrell, DO [address] [place] [address] <No scans attached> Allergies No Known Active Allergiesdocumented as of this encounter (statuses as of 02/18/2020) Medications Medication Sig Dispensed Refills Start Date [...] at bedtime 30 Tab 5 10/09/2018 Active predniSONE (DELTASONE) 10 MG TabletIndications:Prim angie osteoarthritis of both hips One daily with food 90 Tab 1 05/03/2019 Active Additional Information Patient taking differently: One daily with food, Indications: as needed, Reported on 02/04/2020 baclofen (LIORESAL) 10 MG Tablet TAKE 2 TABLETS BY MOUTH IN THE MORNING AND 1 TABLET IN THE EVENING 270 Tab 1 06/26/2019 Active omeprazole (PRILOSEC) 20 MG CPDRIndications:Esopha geal reflux TAKE 1 CAPSULE DAILY 90 Cap 3 07/22/2019 Active famotidine (PEPCID) 20 MG TabletIndications:Kei roesophageal reflux disease with esophagitis Take 1 Tab by mouth daily. 90 Tab 1 08/16/2019 Active Additional Information Patient taking differently: 20 mg Oral DAILY, Indications: in evening, Reported on 02/04/2020 tacrolimus (PROTOPIC) 0.1 % ointmentIndications:Ot her psoriasis Apply to psoriasis on the genitals twice daily as needed for flares. 60 g 2 08/28/2019 Active atorvaSTATin (LIPITOR) 40 MG Tablet TAKE 1 TABLET BY MOUTH AT BEDTIME 90 Tab 3 10/15/2019 Active Hydrocortisone 2.5 % ointmentIndications:De rmatitis Apply to rash on the face twice daily x 3-4 days, then 2-3 x's per week. 15 g 1 12/05/2019 Active zoster vac recomb adjuvanted (SHINGRIX) 50 MCG/0.5ML injectionIndications:N eed for vaccination for zoster Inject 0.5 mL into a large muscle now and repeat dose in 60 to 180 days 1 Each 1 12/09/2019 Active documented as of this encounter (statuses as of 02/18/2020) Active Problems Problem Noted Date Essential tremor [...] as of this encounter (statuses as of 02/18/2020) Resolved Problems Problem Noted Date Resolved Date [...] Lipid Taxonomy. Other chronic sinusitis 10/17/19 18 Organ Teacher's cramp 03/28/2019 documented as of this encounter (statuses as of 02/18/2020) Immunizations Name Administration Dates Next Due Pneumococcal [...] Office Visit Dermatology Nikia Canales MD [address] [place] [address] [phone] 06/12/2020 Office Visit Internal Medicine Armani Hough MD [address] [place] [address] [place] [address] [phone] 01/21/2021 Office Visit Neurology Lynn Hoover MD 200 [facility] [place] [address] [phone] Health Maintenance Due Date Last Done Comments [...] Documents on File Type Date Recorded Patient Schedule Supervisor Expl 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 Advanced Directive Advanced Directive Advanced Directive
--- OUTSIDE RECORDS SUMMARY | 2023-02-20 21:44 | External Medical Summary | Summary of Care ---
Author Name Unknown Organization [place] [address] Care Team Providers Care Vault Custodian Name Role Phone Armani Arreguin MD Primary Care Provider + [phone] Reason for Visit * Reason Comments eRx-Medication Refill Encounter Details Date Type Department Care Team Description 02/22/2020 Refill Internal Medicine [address] [address] Lani Logan MD [address] [place] [address] [place] [id number] Gastroesophageal reflux disease with esophagitis Allergies No Known Active Allergiesdocumented as of this encounter (statuses as of 02/24/2020) Medications Medication Sig Dispensed Refills Start Date End Date Status LISINOPRIL 40 MG PO TABSIndications:in am Take by mouth. Indications: in am 90 Tab 3 12/13/2011 Active TOPROL XL 50 MG PO TB24 One pill by mouth twice a day from [place] 90 Tab 3 12/13/2011 Active VIAGRA 100 [...] TABLET DAILY 90 Tab 1 02/24/2020 Active famotidine (PEPCID) 20 MG TabletIndications:Ga stroesophageal reflux disease with esophagitis Take 1 Tab by mouth daily. 90 Tab 1 08/16/2019 0 Discontinued documented as of this encounter [...] Lipid Taxonomy. Other chronic sinusitis 10/17/19 18 Torch Cutter's cramp 03/28/2019 documented as of this [...] encounter Miscellaneous Notes * Telephone Encounter - Melissa Bonds, [facility] - 02/24/2020 5:05 PM EDT Signed Prescriptions: Disp Refills Famotidine 20 MG Oral Tablet (PEPCID) 90 Tab 1 Sig: TAKE 1 TABLET DAILYAuthorizing Provider: ARMANI ARREGUIN User: MELISSA BONDS documented in this encounter Plan of Treatment Upcoming Encounters Date Type Specialty Care Team Description 03/17/2020 Office Visit Dermatology Nikia Canales MD [address] [place] [address] [phone] 06/12/2020 Office Visit Internal Medicine Armani Arreguin MD [address] [place] [address] [place] [address] [phone] 01/21/2021 Office Visit Neurology Lynn Hoover MD [address] [place] [address] [phone] Health Maintenance Due Date Last Done Comments [...] Diagnoses Diagnosis Gastroesophageal reflux disease with esophagitis documented in this encounter Advance Directives Documents on File Type Date Recorded Patient Laboratory Geneticist Expl 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 Advanced Directive Advanced Directive Advanced Directive
--- OUTSIDE RECORDS SUMMARY | 2023-02-20 21:44 | External Medical Summary | Summary of Care ---
Author Name Unknown Organization [place] [address] Care Team Providers Care Ruby Engineer Name Role Phone Armani Hough MD Primary Care Provider + [phone] Encounter Details Date Type Department Care Team Description 01/09/2020 Scan Encounter [facility] [address] [place] [address] Gigi Harrell, DO [address] [place] [address] <No scans attached> Allergies No Known Active Allergiesdocumented as of this encounter (statuses as of 01/28/2020) Medications Medication Sig Dispensed Refills Start Date End Date Status LISINOPRIL 40 MG PO TABS One pill by mouth once a day from [place] 90 Tab 3 12/13/2011 Active TOPROL XL 50 MG PO TB24 One pill by mouth twice a day from [place] 90 Tab 3 12/13/2011 Active VIAGRA 100 [...] zoster vac recomb adjuvanted (SHINGRIX) 50 MCG/0.5ML injectionIndications:Ar ed for vaccination for zoster Inject 0.5 mL into a large muscle now and repeat dose in 60 to 180 days 1 Each 1 12/09/2019 Active documented as of this encounter (statuses as of 01/28/2020) Active Problems Problem Noted Date Essential tremor [...] as of this encounter (statuses as of 01/28/2020) Resolved Problems Problem Noted Date Resolved Date [...] Lipid Taxonomy. Other chronic sinusitis 10/17/19 18 Applied Psychology Chair's cramp 03/28/2019 documented as of this encounter (statuses as of 01/28/2020) Immunizations Name Administration Dates Next Due Pneumococcal [...] Trinh, Pre Surgical Covid Testing Radha [address] [facility] [place] [address] 02/12/2020 Hospital Encounter [facility]oscopy [facility] [address] [phone] 02/12/2020 Surgery Endoscopy [facility] [place] [address] [phone] COLONOSCOPY FLEXIBLE PROXIMAL DIAGNOSTIC 03/17/2020 Office Visit Dermatology Nikia Canales MD [address] [place] [address] [address] [phone] 06/12/2020 Office Visit Internal Medicine Armani Hough MD [address] [place] [address] [place] [address] [phone] 01/21/2021 Office Visit Neurology Lynn Hoover MD 200 [place] [address] [phone] Health Maintenance Due Date Last Done Comments [...] Documents on File Type Date Recorded Patient Trench Pipe Layer Expl 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 Advanced Directive
--- OUTSIDE RECORDS SUMMARY | 2023-02-20 21:44 | External Medical Summary | Summary of Care ---
Author Name Unknown Organization [place] [address] Care Team Providers Care Metallurgist Helper Name Role Phone Armani Hough MD Primary Care Provider + [phone] Reason for Visit * Reason Comments Joint Pain right hip Encounter Details Date Type Department Care Team Description 01/20/2020 Office Visit [facility] [address] [facility] [address] Gigi Harrell, DO [address] [place] [address] [phone] Greater trochanteric pain syndrome of right lower [...] Lipid Taxonomy. Other chronic sinusitis 10/17/19 18 Search Marketing Coordinator's cramp 03/28/2019 documented as of this encounter [...] - 01/20/2020 10:50 AM EDT Cuong Li [id number] INJECTION NOTE Cuong Li is a 64 year old male who presents to [facility] for Right trochanteric bursa. Last [...] Gigi Harrell DO Primary Care Sports Medicine [facility] [place] [address] Procedure note (trochanteric bursa), right [...] Surgical Covid Testing Radha [address] [place] [address] 02/12/2020 Hospital Encounter Endoscopy Antoinette Godinez MD [address] [place] [address] [phone] 02/12/2020 Surgery Endoscopy Antoinette Godinez MD 132 [facility] [place] [address] [phone] COLONOSCOPY FLEXIBLE PROXIMAL DIAGNOSTIC 03/17/2020 Office Visit Dermatology Nikia Canales MD [address] [place] [address] [phone] 06/12/2020 Office Visit Internal Medicine Armani Hough MD [address] [place] [address] [place] [address] 01/21/2021 Office Visit Neurology Lynn Hoover MD [address] [place] [address] [phone] Scheduled Orders Name Type Priority Associated Diagnoses [...] Documents on File Type Date Recorded Patient Fabric Separator Operator Expl 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 Advanced Directive
--- OUTSIDE RECORDS SUMMARY | 2023-02-20 21:45 | External Medical Summary | Summary of Care ---
Author Name Unknown Organization [facility] [address] Care Team Providers Care Chief Communications Officer Name Role Phone Armani Hough MD Primary Care Provider + [phone] Reason for Visit * Reason Comments Procedure Encounter Details Date Type Department Care Team Description 08/26/2019 Telephone Gastroenterology, [facility] 132 [facility] [place] [address] Antoinette Godinez MD 132 [place] [address] [phone] Procedure Allergies No Known Allergiesdocumented as of this encounter (statuses as of 11/01/2019) Medications Medication Sig Dispensed Refills Start Date End Date Status LISINOPRIL 40 MG PO TABS One pill by mouth once a day from [place] 90 Tab 3 12/13/2011 Active TOPROL XL 50 MG PO TB24 One pill by mouth twice a day from [place] 90 Tab 3 12/13/2011 Active VIAGRA 100 [...] 1 05/03/2019 Active baclofen (LIORESAL) 10 MG TabletIndications:Rib pain on right side Take 1 Tab [...] mouth daily. 90 Tab 1 08/16/2019 Active documented as of this encounter (statuses as of 11/01/2019) Active Problems Problem Noted Date Essential tremor [...] as of this encounter (statuses as of 11/01/2019) Resolved Problems Problem Noted Date Resolved Date Rupture of hamstring tendon 05/26/201703/09 Overview: right Benign neoplasm of colon 10/15/2010 017 Overview: polyp x1, path shows adenomatous tissue repeat in 5 years Mixed dyslipidemia 04/28/2009 04/28/2009 Dyslipidemia, goal to be determined 04/27/2009 04/28/2009 Overview: Per Lipid Taxonomy. Essential and other specified forms of tremor 12/21/2012 PURE HYPERCHOLESTEROLEM 04/27/20 Overview: Per Lipid Taxonomy. Other chronic sinusitis 10/17/19 18 Coremaker Supervisor's cramp 03/28/2019 documented as of this encounter (statuses as of 11/01/2019) Immunizations Name Administration Dates Next Due Pneumococcal [...] have Coronavirus / COVID-19? No / Unsure 10/15/2019 8:23 AM EDT documented as of this encounter [...] encounter Miscellaneous Notes * Telephone Encounter - Kym Marmolejo OSA - 08/30/2019 11:18 AM EDT Spoke to , cancelled appointment and placed on recall list for 6 months out * Telephone Encounter - Kym Marmolejo OSA - 08/26/2019 2:05 PM EDT Due to COVID 19 concern, provider has requested that the patient be rescheduled. LM for patient to call us back. Reschedule 6-12 months documented in this encounter Plan of Treatment Upcoming Encounters Date Type Specialty Care Team Description 12/09/2019 Office Visit Internal Medicine Armani Hough MD [address] [place] [address] [place] [address] [phone] 01/20/2020 Office Visit Neurology Lynn Hoover MD [address] [place] [address] [phone] 03/17/2020 Office Visit Dermatology Nikia Canales MD [address] [place] [address] [phone] Health Maintenance Due Date Last Done Comments Zoster Vaccines (1 of 2) 07/21/2003 COLONOSCOPY-EVERY 3 YRS AGES 18-100 06/03/2019 06/03/2016, 06/03/2016, 10/15/2010 *BASIC METABOLIC PANEL (BMP) FOR HTN YEARLY 10/13/2019 *DEPRESSION SCREENING,ANNUAL FOR PTS 12 AND OVER 10/13/2019 DIABETES SCREEN EVERY 3 YRS-AGE 45 AND ABOVE 09/12/2021 09/12/2018, 09/11/2017, 09/08/2016, Additional history exists DTaP,Tdap,and Td Vaccines (2 - Td) 12/12/2021 12/13/2011, 07/06/2006 LIPID SCREEN EVERY 5 YRS-MEN AGE 35-75 09/13/2023 09/12/2018, 09/11/2017, 09/08/2016, Additional history exists Influenza Vaccine (FLU shot) Completed , 02/08/2018, 02/09/2017, Additional history exists Pneumococcal Vaccine: 65+ Years Completed 03/01/2019, 09/18/2013, 12/18/2012, Additional history exists MENINGOCOCCAL (MENACTRA/MENVEO) Aged Out No longer eligible based on patient's age to complete this topic documented as of this encounter Implants Not on filedocumented as of this encounter Advance Directives Documents on File Type Date Recorded Patient Highway Engineer Expl 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 Advanced Directive
--- OUTSIDE RECORDS SUMMARY | 2023-02-20 21:45 | External Medical Summary | Summary of Care ---
Author Name Unknown Organization [place] [address] Care Team Providers Care Assembly Line Inspector Name Role Phone Armani Hough MD Primary Care Provider + [phone] Reason for Visit * Reason Comments Advice Encounter Details Date Type Department Care Team Description 07/22/2019 Telephone Orthopaedics [facility] 132 [facility] [place] [address] Matthew Brice MD 132 [facility] [place] [address] [phone] Advice Allergies No Known Allergiesdocumented as of this encounter (statuses as of 07/22/2019) Medications Medication Sig Dispensed Refills Start Date End Date Status LISINOPRIL 40 MG PO TABS One pill by mouth once a day from [place] 90 Tab 3 12/13/2011 Active TOPROL XL 50 MG PO TB24 One pill by mouth twice a day from [place] 90 Tab 3 12/13/2011 Active VIAGRA 100 MG PO TABSIndications:Impoten ce of organic origin one as needed 6 Tab 5 04/26/2013 Active triamcinolone acetonide (ARISTOCORT) 0.1 % creamIndications:Other psoriasis Apply topically to affected area 2 times a day as needed for Itching. To affected area of body. 80 g 3 08/26/2014 Active atorvaSTATin (LIPITOR) 40 MG Tablet daily 30 Tab 5 10/02/2014 Active tacrolimus (PROTOPIC) 0.1 % ointmentIndications:Oth er psoriasis Apply to psoriasis on the genitals twice daily as needed for flares. 60 g 2 12/28/2015 Active Cholecalciferol (VITAMIN D) 2000 UNITS Tablet Take 2,000 Units by mouth daily. 0 Active BuPROPion HCl ER, SR, 200 MG TB12 Take 200 mg by mouth 2 times a day. 1 twice daily 0 05/26/2016 Active traZODone (DESYREL) 100 MG TabletIndications:Persi stent insomnia TAKE 1/2 TABLET DAILY AT BEDTIME 90 Tab 1 04/17/2017 Active Hydrocortisone 2.5 % ointment Apply to rash on the face twice daily x 3-4 days, then 2-3 x's per week. 15 g 0 05/22/2018 Active sertraline (ZOLOFT) 25 MG Tablet Take 1 Tab by mouth daily. 30 Tab 5 10/09/2018 Active omeprazole (PRILOSEC) 20 MG CPDRIndications:Esophag eal reflux Take 1 Cap by mouth daily. 90 Cap 1 02/01/2019 Active famotidine (PEPCID) 20 MG TabletIndications:Gastr oesophageal reflux disease with esophagitis Take 1 Tab by mouth daily. 90 Tab 1 03/13/2019 Active predniSONE (DELTASONE) 10 MG TabletIndications:Prima ry [...] THE EVENING 270 Tab 1 06/26/2019 Active documented as of this encounter (statuses as of 07/22/2019) Active Problems Problem Noted Date Essential tremor [...] as of this encounter (statuses as of 07/22/2019) Resolved Problems Problem Noted Date Resolved Date [...] Lipid Taxonomy. Other chronic sinusitis 10/17/19 18 Ordnance Technician's cramp 03/28/2019 documented as of this encounter (statuses as of 07/22/2019) Immunizations Name Administration Dates Next Due Pneumococcal [...] encounter Miscellaneous Notes * Telephone Encounter - Hayley Reyes OSA - 07/22/2019 12:52 PM EDT Rescheduled for 08/06 * Telephone Encounter - Margie Guan LPN - 07/22/2019 12:43 PM EDT Patient returned call advised patient that he already had a compromised ammune system, having a cold, but he was welcome to come, if he felt he needed to be seen. Advised him that it was his decision, and what he decided was the right decision for him. * Telephone Encounter - Margie Guan LPN - 07/22/2019 11:48 AM EDT Contacted patient and person stated he was out and could not be contacted person said he could callwhen he returned. * Telephone Encounter - Roxanne Boogie OSA - 07/22/2019 11:37 AM EDT Pt inquiring if it ok to keep his scheduled appt for tomorrow/ pt said he has a cold documented in this encounter Plan of Treatment Upcoming Encounters Date Type Specialty Care Team Description 08/01/2019 Hospital Encounter Endoscopy Antoinette Godinez MD 132 [place] [address] [phone] 08/01/2019 Surgery Endoscopy Antoinette Godinez MD [address] [place] [address] COLONOSCOPY FLEXIBLE PROXIMAL DIAGNOSTIC 08/07/2019 Office Visit Orthopedics Matthew Brice MD 132 [place] [address] 10/11/2019 Office Visit Internal Medicine Armani Hough MD [address] [place] [address] [place] [address] [phone] 01/20/2020 Office Visit Neurology Lynn Hoover MD [address] [place] [address] [phone] 03/17/2020 Office Visit Dermatology Nikia Canales MD [address] [place] [address] [phone] Health Maintenance Due Date Last Done Comments Zoster Vaccines (1 of 2) 07/21/2003 COLONOSCOPY-EVERY 3 YRS AGES 18-100 06/03/2019 06/03/2016, 06/03/2016, 10/15/2010 DIABETES SCREEN EVERY 3 YRS-AGE 45 AND [...] Documents on File Type Date Recorded Patient Miller Helper Distillery Expl 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 Advanced Directive
--- OUTSIDE RECORDS SUMMARY | 2023-02-20 21:45 | External Medical Summary | Summary of Care ---
Author Name Unknown Organization [place] [address] Care Team Providers Care Mortgage Protection Specialist Name Role Phone Armani Arreguin MD Primary Care Provider + [phone] Reason for Visit * Reason Comments eRx-Medication Refill Encounter Details Date Type Department Care Team Description 07/22/2019 Refill Internal Medicine [address] [address] Armani Arreguin MD [address] [place] [address] [place] [address] [phone] Esophageal reflux Allergies No Known Allergiesdocumented as of this encounter (statuses as of 07/22/2019) Medications Medication Sig Dispensed Refills Start Date End Date Status LISINOPRIL 40 MG PO TABS One pill by mouth once a day from [place] 90 Tab 3 12/13/2011 Active TOPROL XL 50 MG PO TB24 One pill by mouth twice a day from [place] 90 Tab 3 12/13/2011 Active VIAGRA 100 [...] 5 10/02/2014 Active tacrolimus (PROTOPIC) 0.1 % ointmentIndications: Other [...] mouth daily. 30 Tab 5 10/09/2018 Active famotidine (PEPCID) 20 MG TabletIndications:Ga stroesophageal reflux disease with esophagitis Take 1 Tab by mouth daily. 90 Tab 1 03/13/2019 Active predniSONE (DELTASONE) 10 MG TabletIndications:Pr imary [...] CAPSULE DAILY 90 Cap 3 07/22/2019 Active omeprazole (PRILOSEC) 20 MG CPDRIndications:Esop hageal reflux Take 1 Cap by mouth daily. 90 Cap 1 02/01/2019 0 Discontinued documented as of this encounter [...] Lipid Taxonomy. Other chronic sinusitis 10/17/19 18 Thaw Shed Heater Tender's cramp 03/28/2019 documented as of this encounter [...] Miscellaneous Notes * Telephone Encounter - Melissa Bonds RPh - 07/22/2019 5:32 PM EDT Signed Prescriptions: Disp Refills omeprazole (PRILOSEC) 20 MG CPDR 90 Cap 3 Sig: TAKE 1 CAPSULE DAILYAuthorizing Provider: ARMANI ARREGUIN User: MELISSA BONDS documented in this encounter Plan of Treatment Upcoming Encounters Date Type Specialty Care Team Description 08/01/2019 Hospital Encounter Endoscopy Antoinette Godinez MD 132 [facility] [place] [address] 08/01/2019 Surgery Endoscopy Antoinette Godinez MD [address] [place] [address] COLONOSCOPY FLEXIBLE PROXIMAL DIAGNOSTIC 08/07/2019 Office Visit Orthopedics Matthew Brice MD 132 [facility] [place] [address] 10/11/2019 Office Visit Internal Medicine Armani Arreguin MD [address] [place] [address] [place] [address] 01/20/2020 Office Visit Neurology Lynn Hoover MD [address] [place] [address] [phone] 03/17/2020 Office Visit Dermatology Nikia Canales MD [address] [place] [address] [phone] Health Maintenance Due Date Last Done Comments [...] Documents on File Type Date Recorded Patient Investigator Claims Expl 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 Advanced Directive
--- OUTSIDE RECORDS SUMMARY | 2023-02-20 21:45 | External Medical Summary | Summary of Care ---
Author Name Unknown Organization [place] [address] Care Team Providers Care Electrical Logging Operator Name Role Phone Armani Hough MD Primary Care Provider + [phone] Reason for Visit * Reason Comments Appointment Orthopaedics Encounter Details Date Type Department Care Team Description 07/10/2019 Telephone Internal Medicine [address] [address] Armani Hough MD [address] [place] [address] [phone] Appointment (Orthopaedics) Allergies No Known Allergiesdocumented as of this encounter (statuses as of 07/10/2019) Medications Medication Sig Dispensed Refills Start Date End Date Status LISINOPRIL 40 MG PO TABS One pill by mouth once a day from [place] 90 Tab 3 12/13/2011 Active TOPROL XL 50 MG PO TB24 One pill by mouth twice a day from [place] 90 Tab 3 12/13/2011 Active VIAGRA 100 [...] as of this encounter (statuses as of 07/10/2019) Active Problems Problem Noted Date Essential tremor [...] as of this encounter (statuses as of 07/10/2019) Resolved Problems Problem Noted Date Resolved Date [...] Lipid Taxonomy. Other chronic sinusitis 10/17/19 18 Automotive Tire Tester's cramp 03/28/2019 documented as of this encounter (statuses as of 07/10/2019) Immunizations Name Administration Dates Next Due Pneumococcal [...] Telephone Encounter - Margaret Vidales OSA - 07/10/2019 3:59 PM EST I left message on patient's VM to call me (RE: Scheduling Ortho appt). documented in this encounter Plan of Treatment Upcoming Encounters Date Type Specialty Care Team Description 08/01/2019 Hospital Encounter Endoscopy Antoinette Godinez MD [address] [place] [address] [phone] 08/01/2019 Surgery Endoscopy Antoinette Godinez MD [address] [place] [address] [phone] COLONOSCOPY FLEXIBLE PROXIMAL DIAGNOSTIC 10/11/2019 Office Visit Internal Medicine Armani Hough MD [address] [place] [address] [place] [id number] 01/20/2020 Office Visit Neurology Lynn Hoover MD [address] [place], [place] [address] [address] [phone] 03/17/2020 Office Visit Dermatology Nikia Canales MD [address] [place] [address] [phone] Health Maintenance Due Date Last Done Comments [...] Documents on File Type Date Recorded Patient Enterprise Integration Architect Expl 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
--- OUTSIDE RECORDS SUMMARY | 2023-02-20 21:45 | External Medical Summary | Summary of Care ---
Author Name Unknown Organization [place] [address] Care Team Providers Care Non Destructive Testing Scientist Name Role Phone Armani Hough MD Primary Care Provider + [phone] Reason for Visit * Reason Comments NEW PATIENT bilateral hip pain X 1 year. * Evaluate & Treat - Unlimited Visits (Within 10 days (routine)) Status Reason Specialty Diagnoses / Procedures Referred By Contact Referred To Contact Pending Review Specialty Services Required Orthopaedic Surgery Diagnoses Trochanteric bursitis of both hips Armani Hough MD [address] [place] [address] [place] [address] Encounter Details Date Type Department Care Team Description 10/15/2019 Office Visit Orthopaedics [facility] [address] [place] [address] Gigi Harrell, DO [address] [place] [address] Greater trochanteric pain syndrome of both lower extremities* Allergies No Known Allergiesdocumented as of this encounter (statuses as of 10/15/2019) Medications Medication Sig Dispensed Refills Start Date End Date Status LISINOPRIL 40 MG PO TABS One pill by mouth once a day from [place] 90 Tab 3 12/13/2011 Active TOPROL XL [...] Tablet daily 30 Tab 5 10/02/2014 Active Cholecalciferol (VITAMIN D) 2000 UNITS Tablet [...] mouth daily. 90 Tab 1 08/16/2019 Active Hydrocortisone 2.5 % ointmentIndications:Leno matitis Apply to rash on the face twice daily x 3-4 days, then 2-3 x's per week. 15 g 1 08/28/2019 Active tacrolimus (PROTOPIC) 0.1 % ointmentIndications:Oth er psoriasis Apply to psoriasis on the genitals twice daily as needed for flares. 60 g 2 08/28/2019 Active Hospital, Clinic, or Other Facility Administered Medication Ordered Dose Route Frequency Start Date End Date Status ROPivacaine 0.5% 3 mL - DEPO-Medrol 40 mg/mL 1 mL inj 4 mLIndications:Greater trochanteric pain syndrome of both lower extremities 4 mL IJ ONCE 10/15/2019 10/15/2019 Active ROPivacaine 0.5% 3 mL - DEPO-Medrol 40 mg/mL 1 mL inj 4 mLIndications:Greater trochanteric pain syndrome of both lower extremities 4 mL IJ ONCE 10/15/2019 10/15/2019 Active documented as of this encounter (statuses as of 10/15/2019) Active Problems Problem Noted Date Essential tremor [...] as of this encounter (statuses as of 10/15/2019) Resolved Problems Problem Noted Date Resolved Date [...] Lipid Taxonomy. Other chronic sinusitis 10/17/19 18 Machinist Supervisor's cramp 03/28/2019 documented as of this encounter (statuses as of 10/15/2019) Immunizations Name Administration Dates Next Due Pneumococcal [...] Pressure - - Pulse - - Temperature 36.6 C (97.8 F) 10/15/2019 8:28 AM ED T Respiratory Rate - - Oxygen Saturation [...] Progress Notes * Gigi Harrell, DO - 10/15/2019 8:58 AM EDT Cuong Li [id number] Cuong Li is a 64 year old male who presents for consultation for bilateralhip injury/pain [facility] Sports Medicine. Consult requested by Armani Hough MD. Cuong Li is here with his/her Quality: reviewed and agree with Nursing Notes for HPI elements History: History - no injury pain on / off Years 10+ Modifying factors: activity exacerbates walking more than 100ft, also prolonged sitting Patient has tried ibuprofen and tylenol. No formal physical therapy. Previous hip injuries include: none Review of Systems: no fevers or chills, no unexplained weight loss, no rashes or all other pertinent systems negative. CT 05/26/2017- reviewed with pt 1. Complete avulsion of the right hamstring tendon origin. 2. Mild right hip osteoarthritis. 3. 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 Antalgic - positive mild Scars / previous surgery or trauma:No Alignment: normal ROM: normal and symmetric in actively flexion, extension, internal and external rotation in Bilateral Popliteal angle very tight hamstrings Palpation: Moderate- severe tenderness to palpation over greater trochanter on the left greater than right Strength: age appropriate, no obvious right hamstring deficit Hip/pelvis tests: Modified pawan positive Right Passive internal and external rotation of femoral head negative Bilateral Piriformis mild restriction Bilateral Ebony's positive Right Resisted abduction (gluteus medius) shows slightly decreased strength Bilateral Elena negative Bilateral. Ludloff sign for iliopsoas tendinitis negative on Bilateral. Snapping hip sign negative on Bilateral. Labrum tests: FADIR: negative Bilateral. Scrub: negative Bilateral. Assessment and Plan: reviewed options including PT to rehab hamstrings as he is overall restricted,will hold on repeat xrays, trial of injections, my g update in 2-3 weeks, then determine next plan of care 1) Greater trochanteric pain syndrome of both lower extremities (Primary) - POINT OF CARE US MAJOR JOINT INJECTION, ORTHO Gigi Harrell DO Primary Care Sports Medicine Orthopaedics [address] [address] Procedure note (hip- trochanteric injection), bilateral : right done first Time out: Prior to injection, a time out was called to confirm the administration of appropriate medicine, patient name, procedure and confirm to the best of our ability and knowledge the presence of any necessary risks and benefits. Patient verbalizes understanding. Ultrasound utilized to guide injection Ultrasound required due to: patient size (obese) and need to visualize specific bursa and inject inthis specific location Sterile techinique applied. Skin sterilized with alcohol swab. Hip injected using 3.5 inch, 22 gauge needle. Injected [...] Nursing Notes * Sarahi Moore LPN - 10/15/2019 8:26 AM EDT Pt presents for bilateral hip pain for over a year. Previous pain X 12 years." Got a shot that madethe pain go away." States when he walks, feels a burning sensation lateral hip pain that radiates into his buttocks. Ct 05/26/2019 Complete avulsion of the right hamstring tendon origin. Sarahi feliz LPN documented in this encounter Plan of Treatment Upcoming Encounters Date Type Specialty Care Team Description 10/15/2019 Imaging Radiology 12/09/2019 Office Visit Internal Medicine Armani Hough MD [address] [place] [address] [place] [address] [phone] 01/20/2020 Office Visit Neurology Lynn Hoover MD [address] [place] [address] [phone] 03/17/2020 Office Visit Dermatology Nikia Canales MD [address] [facility] [place] [address] [phone] Scheduled Orders Name Type Priority Associated Diagnoses Orde r Schedule POINT OF CARE US MAJOR JOINT INJECTION, ORTHO Medical Imaging Routine Greater trochanteric pain syndrome of both lower extremities Ordered: 10/15/2019 Health Maintenance Due Date Last Done Comments [...] lower extremities- Primary documented in this encounter Advance Directives Documents on File Type Date Recorded Patient Aerial Sprayer Expl 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 Advanced Directive
--- OUTSIDE RECORDS SUMMARY | 2023-02-20 21:45 | External Medical Summary | Summary of Care ---
Author Name Unknown Organization [place] [address] Care Team Providers Care Band Edger Name Role Phone Armani Hough MD Primary Care Provider + [phone] Reason for Visit * Reason Comments Suture Removal Encounter Details Date Type Department Care Team Description 05/09/2019 Nurse Only Dermatology [address] [address] Sp, Nurse Dermatology [address] [place] [address] [phone] Suture Removal Allergies No Known Allergiesdocumented as of this encounter (statuses as of 05/09/2019) Medications Medication Sig Dispensed Refills Start Date End Date Status LISINOPRIL 40 MG PO TABS One pill by mouth once a day from ID 90 Tab 3 12/13/2011 Active TOPROL XL 50 MG PO TB24 One pill by mouth twice a day from ID 90 Tab 3 12/13/2011 Active VIAGRA 100 [...] mouth daily. 30 Tab 5 10/09/2018 Active baclofen (LIORESAL) 10 MG Tablet TAKE 2 TABLETS BY MOUTH IN THE MORNING AND 1 TABLET IN THE EVENING 270 Tab 1 12/17/2018 Active omeprazole (PRILOSEC) 20 MG CPDRIndications:Esophag eal reflux Take 1 Cap by mouth daily. 90 Cap 1 02/01/2019 Active famotidine (PEPCID) 20 MG TabletIndications:Gastr oesophageal reflux disease with esophagitis Take 1 Tab by mouth daily. 90 Tab 1 03/13/2019 Active predniSONE (DELTASONE) 10 MG TabletIndications:Prima ry osteoarthritis of both hips One daily with food 90 Tab 1 05/03/2019 Active documented as of this encounter (statuses as of 05/09/2019) Active Problems Problem Noted Date Essential tremor [...] as of this encounter (statuses as of 05/09/2019) Resolved Problems Problem Noted Date Resolved Date [...] Lipid Taxonomy. Other chronic sinusitis 10/17/19 18 Housekeeping Room Inspector's cramp 03/28/2019 documented as of this encounter (statuses as of 05/09/2019) Immunizations Name Administration Dates Next Due Pneumococcal [...] 6 12 oz of beer 5.0 occ Sex Assigned at Date Recorded Not on [...] as of this encounter Nursing Notes * Karen Álvarez LPN - 05/09/2019 8:42 AM EST Patient here post excision of BCC on back to have sutures removed. Site dry, clean, and intact. Physician order matches timeframe that patient is in to have removed. Patient states wound is not painful, or draining. Denies any problems or concerns at this time. Wound has minimal redness and no swelling noted. Sutures removed without difficulty. No wound separation. Patient instructed to call withany concerns. documented in this encounter Plan of Treatment Upcoming Encounters Date Type Specialty Care Team Description 10/11/2019 Office Visit Internal Medicine Armani Hough MD [address] [place] [address] [place] [address] [phone] 01/20/2020 Office Visit Neurology Lynn Hoover MD [address] [place] [address] [phone] 03/17/2020 Office Visit Dermatology Nikia Canales MD [address] [place] [address] [phone] Scheduled Orders Name Type Priority Associated Diagnoses Orde r Schedule SUTURE REMOVAL (NURSE ONLY) Procedures Routine Encounter for removal of sutures 1 Occurrences starting 05/09/2019 until 07/08/2019 Health Maintenance Due Date Last Done Comments [...] 03/01/2019, 09/18/2013, 12/18/2012, Additional history exists MENINGOCOCCAL (MENACTRA) Aged Out No longer eligible based on patient's age to complete this topic documented as of this encounter Implants Not on filedocumented as of this encounter Visit Diagnoses Diagnosis Encounter for removal of sutures- Primary documented in this encounter Advance Directives Documents on File Type Date Recorded Patient Nutrition Services Associate Expl 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
--- OUTSIDE RECORDS SUMMARY | 2023-02-20 21:45 | External Medical Summary | Summary of Care ---
Author Name Unknown Organization [place] [address] Care Team Providers Care Wood Last Maker Name Role Phone Armani Hough MD Primary Care Provider + [phone] Reason for Visit * Reason Comments Pt Portal Med Renewal Encounter Details Date Type Department Care Team Description 06/26/2019 Refill Neurology [facility] [address] [place] [address] Reinaldo Hoover MD 200 [place] [address] [phone] Allergies No Known Allergiesdocumented as of this encounter (statuses as of 06/26/2019) Medications Medication Sig Dispensed Refills Start Date End Date Status LISINOPRIL 40 MG PO TABS One pill by mouth once a day from CA 90 Tab 3 12/13/2011 Active TOPROL XL 50 MG PO TB24 One pill by mouth twice a day from CA 90 Tab 3 12/13/2011 Active VIAGRA 100 [...] 1 02/01/2019 Active famotidine (PEPCID) 20 MG TabletIndications:Ga stroesophageal [...] THE EVENING 270 Tab 1 06/26/2019 Active baclofen (LIORESAL) 10 MG Tablet TAKE 2 TABLETS BY MOUTH IN THE MORNING AND 1 TABLET IN THE EVENING 270 Tab 1 12/17/2018 06/26/2019 Discontinue d(Refill) documented as of this encounter (statuses as of 06/26/2019) Active Problems Problem Noted Date Essential tremor [...] as of this encounter (statuses as of 06/26/2019) Resolved Problems Problem Noted Date Resolved Date [...] Other chronic sinusitis 10/17/19 18 Director Of Reservations's cramp 03/28/2019 documented as of this encounter (statuses as of 06/26/2019) Immunizations Name Administration Dates Next Due Pneumococcal [...] Telephone Encounter - Reinaldo Hoover MD - 06/26/2019 10:34 AM EST Signed Prescriptions: Disp Refills baclofen (LIORESAL) 10 MG Tablet 270 Tab1 Sig: TAKE 2 TABLETS BY MOUTH IN THE MORNING AND 1 TABLET IN THE EVENING Authorizing Provider: REINALDO HOOVER * Telephone Encounter - Kiana Willis LPN - 06/26/2019 8:17 AM EST Pending Prescriptions: Disp Refills baclofen (LIORESAL) 10 MG Tablet 270 Tab1 * Telephone Encounter - Miladis Campbell OSA - 06/26/2019 8:08 AM EST Message from [employer]: Cuong Chase Guillermo would like a refill of the following medications: baclofen (LIORESAL) 10 MG Tablet [Reinaldo Hoover MD] Preferred pharmacy: [id number] [facility] documented in this encounter Plan of Treatment Upcoming Encounters Date Type Specialty Care Team Description 08/01/2019 Hospital Encounter Endoscopy Antoinette Godinez MD [address] [place] [address] 08/01/2019 Surgery Endoscopy Antoinette Godinez MD [address] [place] [address] COLONOSCOPY FLEXIBLE PROXIMAL DIAGNOSTIC 10/11/2019 Office Visit Internal Medicine Armani Hough MD [address] [place] [address] [place] [address] 01/20/2020 Office Visit Neurology Reinaldo Hoover MD [facility] [place] [address] [phone] 03/17/2020 Office Visit Dermatology Nikia Canales MD 200 [facility] [place] [address] Health Maintenance Due Date Last [...] Documents on File Type Date Recorded Patient Intermediate Manager Expl 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
--- OUTSIDE RECORDS SUMMARY | 2023-02-20 21:45 | External Medical Summary | Summary of Care ---
Author Name Unknown Organization [place] [address] Care Team Providers Care Replenishment Buyer Name Role Phone Armani Hough MD Primary Care Provider + [phone] Reason for Visit * Reason Comments Pt Portal Med Renewal Encounter Details Date Type Department Care Team Description 08/28/2019 Refill Dermatology [facility] 200 [place] [address] Margi Love MD [address] [place] [address] [phone] Other psoriasis* Allergies No Known Allergiesdocumented as of this encounter (statuses as of 08/28/2019) Medications Medication Sig Dispensed Refills Start Date End Date Status LISINOPRIL 40 MG PO TABS One pill by mouth once a day from AR 90 Tab 3 12/13/2011 Active TOPROL XL 50 MG PO TB24 One pill by mouth twice a day from AR 90 Tab 3 12/13/2011 Active VIAGRA 100 [...] for flares. 60 g 2 08/28/2019 Active tacrolimus (PROTOPIC) 0.1 % ointmentIndications: Other psoriasis Apply to psoriasis on the genitals twice daily as needed for flares. 60 g 2 12/28/2015 08/28/2019 Discontinue d(Refill) documented as of this encounter (statuses as of 08/28/2019) Active Problems Problem Noted Date Essential tremor [...] as of this encounter (statuses as of 08/28/2019) Resolved Problems Problem Noted Date Resolved Date [...] Lipid Taxonomy. Other chronic sinusitis 10/17/19 18 Township Clerk's cramp 03/28/2019 documented as of this encounter (statuses as of 08/28/2019) Immunizations Name Administration Dates Next Due Pneumococcal [...] Telephone Encounter - Margi Love MD - 08/28/2019 12:07 PM EDT Signed Prescriptions: Disp Refills tacrolimus (PROTOPIC) 0.1 % ointment 60 g 2 Sig: Apply to psoriasis on the genitals twice daily as needed for flares.Authorizing Provider: MARGI LOVE--------- * Telephone Encounter - Rober Chavez LPN - 08/28/2019 11:30 AM EDT Pending Prescriptions: Disp Refills tacrolimus (PROTOPIC) 0.1 % ointment 60 g 2 Sig: Apply to psoriasis on the genitals twice daily as needed for flares. * Telephone Encounter - ElianechrissieCarrie, RUTHY - 08/28/2019 11:15 AM EDT Pending Prescriptions: Disp Refills tacrolimus (PROTOPIC) 0.1 % ointment 60 g 2 Sig: Apply to psoriasis on the genitals twice daily as needed for flares. Last Office/Telemedicine Visit: 04/25/2019 Next Office Visit: 03/17/2020 Scheduled Provider(s): Margi Love MD Last date the medication was ordered: 12/28/2015 Patient Active Problem List Diagnosis Code Primary [...] 10/14/16 33 FINAL Hemoglobin AIC Results: HEMOGLOBIN, [id number] LAB(%) Carleen Dt/Tm Resulted Value Status 09/08/16 10/14/16 5.4 FINAL 05/12/14 06/12/14 5.8 FINAL * Telephone Encounter - Carrie Castellanos OSA - 08/28/2019 11:15 AM EDT Message from [employer]: Cuong Li would like a refill of the following medications: tacrolimus (PROTOPIC) 0.1 % ointment [Margi Love MD] [facility]: [id number] [id number] documented in this encounter Plan of Treatment Upcoming Encounters Date Type Specialty Care Team Description 10/03/2019 Hospital Encounter Endoscopy Antoinette Godinez MD [address] [place] [address] [place] [address] [phone] 10/03/2019 Surgery Endoscopy Antoinette Godinez MD [address] [place] [address] [phone] COLONOSCOPY FLEXIBLE PROXIMAL DIAGNOSTIC 10/11/2019 Office Visit Internal Medicine Armani Hough MD [address] [place] [address] [place] [address] [phone] 10/15/2019 Office Visit Orthopedics Gigi Harrell, DO [address] [place] [address] 01/20/2020 Office Visit Neurology Lynn Hoover MD [address] [place] [address] [phone] 03/17/2020 Office Visit Dermatology Margi Love MD [address] [place] [address] [phone] Health Maintenance Due Date Last Done Comments [...] of this encounter Visit Diagnoses Diagnosis Other psoriasis- Primary documented in this encounter Advance Directives Documents on File Type Date Recorded Patient Construction Teacher Expl 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 Advanced Directive
--- OUTSIDE RECORDS SUMMARY | 2023-02-20 21:45 | External Medical Summary | Summary of Care ---
Author Name Unknown Organization [place] [address] Care Team Providers Care Wind Tunnel Technician Name Role Phone Armani Hough MD Primary Care Provider + [phone] Reason for Visit * Reason Comments Referral Requested by Specialist colonos copy Encounter Details Date Type Department Care Team Description 07/05/2019 Telephone Internal Medicine [address] [address] Armani Hough MD [address] [place] [address] [phone] Referral Requested by Specialist (colonosc... Allergies No Known Allergiesdocumented as of this encounter (statuses as of 07/11/2019) Medications Medication Sig Dispensed Refills Start Date End Date Status LISINOPRIL 40 MG PO TABS One pill by mouth once a day from SC 90 Tab 3 12/13/2011 Active TOPROL XL 50 MG PO TB24 One pill by mouth twice a day from SC 90 Tab 3 12/13/2011 Active VIAGRA 100 [...] as of this encounter (statuses as of 07/11/2019) Active Problems Problem Noted Date Essential tremor [...] as of this encounter (statuses as of 07/11/2019) Resolved Problems Problem Noted Date Resolved Date [...] Lipid Taxonomy. Other chronic sinusitis 10/17/19 18 Farmer Tree Fruit [employer] Nut [employer]'s cramp 03/28/2019 documented as of this encounter (statuses as of 07/11/2019) Immunizations Name Administration Dates Next Due Pneumococcal [...] encounter Miscellaneous Notes * Telephone Encounter - Shelby Coffman OSA - 07/05/2019 8:30 AM EST Patient is scheduled for a colonoscopy 08/01/[address] Godinez. DX: Personal history of colonic polyps Order pended, please sign Thank you. documented in this encounter Plan of Treatment Upcoming Encounters Date Type Specialty Care Team Description 08/01/2019 Hospital Encounter Endoscopy Antoinette Godinez MD [address] [place] [address] [phone] 08/01/2019 Surgery Endoscopy Antoinette Godinez MD [address] [place] [address] [phone] COLONOSCOPY FLEXIBLE PROXIMAL DIAGNOSTIC 10/11/2019 Office Visit Internal Medicine Armani Hough MD [address] [place] [address] [place] [address] [phone] 01/20/2020 Office Visit Neurology Lynn Hoover MD [address] [place] [address] [phone] 03/17/2020 Office Visit Dermatology Nikia Canales MD [address] [place] [place] [address] [phone] Scheduled Orders Name Type Priority Associated Diagnoses Orde r Schedule COLONOSCOPY, DIAGNOSTIC (RECTUM) Procedures Routine Personal history of colonic polyps Ordered: 07/05/2019 Health Maintenance Due Date Last Done Comments [...] as of this encounter Visit Diagnoses Diagnosis Personal history of colonic polyps- Primary documented in this encounter Advance Directives Documents on File Type Date Recorded Patient Melter Supervisor Electric Arc Furnace Expl 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
--- OUTSIDE RECORDS SUMMARY | 2023-02-20 21:45 | External Medical Summary | Summary of Care ---
Author Name Unknown Organization [place] [address] Care Team Providers Care Electronic Gluer Name Role Phone Armani Hough MD Primary Care Provider + [phone] Reason for Visit * Reason Comments eRx-Medication Refill Encounter Details Date Type Department Care Team Description 10/14/2019 Refill Internal Medicine [address] [address] Armani Hough MD [address] [place] [address] [phone] Allergies No Known Allergiesdocumented as of this [...] Tab 1 08/16/2019 Active Hydrocortisone 2.5 % ointmentIndications: Dermatitis Apply to rash on the face twice daily x 3-4 days, then 2-3 x's per week. 15 g 1 08/28/2019 Active tacrolimus (PROTOPIC) 0.1 % ointmentIndications: Other psoriasis Apply to psoriasis on the genitals twice daily as needed for flares. 60 g 2 08/28/2019 Active atorvaSTATin (LIPITOR) 40 MG Tablet TAKE 1 TABLET BY MOUTH AT BEDTIME 90 Tab 3 10/15/2019 Active atorvaSTATin (LIPITOR) 40 MG Tablet daily 30 Tab 5 10/02/2014 0 Discontinued documented as of this encounter [...] Lipid Taxonomy. Other chronic sinusitis 10/17/19 18 Semiconductor Wafers Etcher Stripper's cramp 03/28/2019 documented as of this encounter [...] Miscellaneous Notes * Telephone Encounter - Tristan Cook MD - 10/15/2019 1:20 PM EDT Signed Prescriptions: Disp Refills atorvaSTATin (LIPITOR) 40 MG Tablet 90 Tab 3 Sig: TAKE 1 TABLET BY MOUTH AT BEDTIME Authorizing Provider: TRISTAN COOK * Telephone Encounter - Isaura Oliveros [facility] - 10/15/2019 12:29 PM EDT Pending Prescriptions: Disp Refills atorvaSTATin (LIPITOR) 40 MG Tablet [Phar*90 Tab 3 Sig: TAKE 1 TABLET BY MOUTH AT BEDTIME * Telephone Encounter - Isaura Oliveros [facility] - 10/15/2019 12:27 PM EDT Previously prescribed by [place]. Patient states he no longer wants [place] doctor to refill medication. Would like all medications eventually refilled by PCP. Please approve if appropriate. Thanks, Isaura Oliveros, PharmD Clinical Pharmacist Telepharmacy 10/15/2019 12:28 PM * Telephone Encounter - Isaura Oliveros [facility] - 10/15/2019 12:27 PM EDT Pending Prescriptions: Disp Refills atorvaSTATin (LIPITOR) 40 MG Tablet [Phar*90 Tab 3 Sig: TAKE 1 TABLET BY MOUTH AT BEDTIME Last Office/Telemedicine Visit: 05/21/2019 Next Office Visit: 12/09/2019 Scheduled Provider(s): Armani Hough MD If no future appointments scheduled, and last appointment is greater than a year ago, please schedule patient for a follow-up appointment Last date the medication was ordered: historical [facility]: [id number] [id number] Is this request for a controlled substance?No Urine Drug Screen:No results found for this or any previous visit. Patient Phone Numbers Labs: Lab Results Component Value Date/Time CREAT 0.9 09/12/2018 CREAT 1.1 05/20/2015 10:03 AM POTASSIUM 4.4 05/20/2015 10:03 AM TSH 1.90 07/14/2006 09:11 AM LDLCALC 113 (A) 09/12/2018 LDLCALC 114 12/13/2011 08:15 AM LDLCHOL 106 (A) 09/10/2013 ALT 22 05/20/2015 10:03 AM HGBA1C 5.4 09/08/2016 documented in this encounter Plan of Treatment Upcoming Encounters Date Type Specialty Care Team Description 12/09/2019 Office Visit Internal Medicine Armani Hough MD [address] [place] [address] [place] [address] [phone] 01/20/2020 Office Visit Neurology Lynn Hoover MD [address] [place] [address] [phone] 03/17/2020 Office Visit Dermatology Nikia Canales MD [address] [facility] [address] Health Maintenance Due Date Last Done [...] Documents on File Type Date Recorded Patient Acid Wash Operator Expl 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 Advanced Directive
--- OUTSIDE RECORDS SUMMARY | 2023-02-20 21:45 | External Medical Summary | Summary of Care ---
Author Name Unknown Organization [place] [address] Care Team Providers Care Lumber Kiln Operator Name Role Phone Armani Hough MD Primary Care Provider + [phone] Reason for Visit * Reason Comments Medication Refill FAMOTIDINE Encounter Details Date Type Department Care Team Description 08/16/2019 Refill Internal Medicine [address] [address] Jannie Carty PA-C [address] [place] [address] [place] [address] [phone] Gastroesophageal reflux disease with esophagitis Allergies No Known Allergiesdocumented as of this encounter (statuses as of 08/16/2019) Medications Medication Sig Dispensed Refills Start Date End Date Status LISINOPRIL 40 MG PO TABS One pill by mouth once a day from NC 90 Tab 3 12/13/2011 Active TOPROL XL 50 MG PO TB24 One pill by mouth twice a day from NC 90 Tab 3 12/13/2011 Active VIAGRA 100 [...] mouth daily. 90 Tab 1 08/16/2019 Active famotidine (PEPCID) 20 MG TabletIndications:Ga stroesophageal reflux disease with esophagitis Take 1 Tab by mouth daily. 90 Tab 1 03/13/2019 08/16/2019 Discontinue d(Refill) documented as of this encounter (statuses as of 08/16/2019) Active Problems Problem Noted Date Essential tremor [...] as of this encounter (statuses as of 08/16/2019) Resolved Problems Problem Noted Date Resolved Date [...] Lipid Taxonomy. Other chronic sinusitis 10/17/19 18 Correctional Treatment Specialist's cramp 03/28/2019 documented as of this encounter (statuses as of 08/16/2019) Immunizations Name Administration Dates Next Due Pneumococcal [...] encounter Miscellaneous Notes * Telephone Encounter - Christie Henriquez MD - 08/16/2019 11:08 AM EDT Signed Prescriptions: Disp Refills famotidine (PEPCID) 20 MG Tablet 90 Tab 1 Sig: Take 1 Tab by mouth daily. Authorizing Provider: CHRISTIE HENRIQUEZ * Telephone Encounter - Mitzy [place] LPN - 08/16/2019 9:56 AM EDT Pending Prescriptions: Disp Refills famotidine (PEPCID) 20 MG Tablet 90 Tab 1 Sig: Take 1 Tab by mouth daily. * Telephone Encounter - Grover Sesay, RUTHY - 08/16/2019 9:54 AM EDT Pending Prescriptions: Disp Refills famotidine (PEPCID) 20 MG Tablet 90 Tab 1 Sig: Take 1 Tab by mouth daily. Last Office Visit: 05/21/2019 Next Office Visit: 10/11/2019 Scheduled Provider(s): Armani Hough MD Last date the medication was ordered: 03/13/2019 Patient Active Problem List Diagnosis Code Primary [...] 10/14/16 33 FINAL Hemoglobin AIC Results: HEMOGLOBIN, [id number] LAB(%) Carleen Dt/Tm Resulted Value Status 09/08/16 10/14/16 5.4 FINAL 05/12/14 06/12/14 5.8 FINAL documented in this encounter Plan of Treatment Upcoming Encounters Date Type Specialty Care Team Description 09/12/2019 Office Visit Orthopedics Matthew Brice MD [address] [place] [address] 10/03/2019 Hospital Encounter Endoscopy Antoinette Godinez MD [address] [place] [address] [phone] 10/03/2019 Surgery Endoscopy Antoinette Godinez MD [address] [place] [address] [phone] COLONOSCOPY FLEXIBLE PROXIMAL DIAGNOSTIC 10/11/2019 Office Visit Internal Medicine Armani Hough MD [address] [place] [address] [place] [address] [phone] 01/20/2020 Office Visit Neurology Lynn Hoover MD [address] [place] [address] [phone] 03/17/2020 Office Visit Dermatology Nikia Canales MD [address] [place] [facility] [place] [address] [phone] Health Maintenance Due Date Last Done Comments [...] Documents on File Type Date Recorded Patient Cosmetics Counter Manager Expl 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 Advanced Directive
--- OUTSIDE RECORDS SUMMARY | 2023-02-20 21:45 | External Medical Summary | Summary of Care ---
Author Name Unknown Organization [place] [address] Care Team Providers Care Gold Miner Name Role Phone Armani Hough MD Primary Care Provider + [phone] Reason for Visit * Reason Comments NEW PATIENT bilateral hip pain X 1 year. * Evaluate & Treat - Unlimited Visits (Within 10 days (routine)) Status Reason Specialty Diagnoses / Procedures Referred By Contact Referred To Contact Pending Review Specialty Services Required Orthopaedic Surgery Diagnoses Trochanteric bursitis of both hips Armani Hough MD [address] [place] [address] [place] [address] Encounter Details Date Type Department Care Team Description 10/15/2019 Office Visit Orthopaedics [facility] [address] [place] [address] Gigi Harrell, DO [address] [place] [address] Greater trochanteric pain syndrome of [...] extremities 4 mL IJ ONCE 10/15/2019 10/15/2019 Ended ROPivacaine 0.5% 3 mL - DEPO-Medrol 40 mg/mL 1 mL inj 4 mLIndications:Greater trochanteric pain syndrome of both lower extremities 4 mL IJ ONCE 10/15/2019 10/15/2019 Ended documented as of this encounter (statuses [...] Lipid Taxonomy. Other chronic sinusitis 10/17/19 18 Boot Turner's cramp 03/28/2019 documented as of this encounter [...] - 10/15/2019 8:58 AM EDT Cuong Li [id number] Cuong Li is a 64 year old male who presents for consultation for bilateralhip injury/pain [facility]. 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 [employer] Vaping/E-Cigarette Use Vaping/E-Cigarette Substances Vaping/E-Cigarette Devices Physical [...] Harrell DO Primary Care Sports Medicine Orthopaedics [address] [address] Procedure note (hip- trochanteric injection), bilateral : [...] Office Visit Internal Medicine Armani Hough MD [address] [place] [address] [place] [address] [phone] 01/20/2020 Office Visit Neurology Lynn Hoover MD [address] [place] [address] [phone] 03/17/2020 Office Visit Dermatology Nikia Canales MD [address] [place] [address] [phone] Health Maintenance Due Date Last Done Comments [...] CARE US MAJOR JOINT INJECTION, ORTHO Routine 10/15/2019 8:27 AM EDT Greater trochanteric pain syndrome of both lower extremities documented in this encounter Results * POINT OF CARE US MAJOR JOINT INJECTION, ORTHO (10/15/2019 8:27 AM EDT) Specimen Narrative Performed At [facility] Exam Date: 10/15/2019 Exam Type: Ortho Wood Craftsman: Gigi Harrell Attending: Gigi Harrell Worksheet: Ortho Injection Exam Information: Impression: Procedure note (hip- trochanteric injection), bilateral : right done first ? Time out: Prior to injection, a [...] specific bursa and inject in this specific location Sterile techinique applied. Skin sterilized [...] above.: Signed by Gigi Harrell on Tuesday, October 15, 2019 at 9:29:52 AM Q-PATH Procedure Note Interface, Rad In - 10/15/2019 9:30 AM EDT [facility] Exam Date: 10/15/2019 Exam Type: Ortho Wood Craftsman: Gigi Harrell Attending: Gigi Harrell Worksheet: Ortho Injection Exam Information: Impression: Procedure note (hip- trochanteric injection), bilateral : right donefirst ? Time out: Prior to injection, a time out was called to confirm the administration ofappropriate medicine, patient name, procedure and confirm to the best ofour ability and knowledge the presence of any necessary risks andbenefits. Patient verbalizes understanding. ? Ultrasound utilized to guide injection Ultrasound required due to: patient size (obese) and need to visualizespecific bursa and inject in this specific location Sterile techinique applied. Skin sterilized with alcohol swab. Hipinjected using 3.5 inch, 22 gauge needle. Injected with 3 ml Ropivacaine0.5%, 1 ml depomedrol 40mg/ml. Patient tolerated procedure with nosignificant bleeding or adverse reaction. ? Patient instructed to call or return to clinic for fever or warmth andredness at injection site for potential infection. Patient also advisedas to potential for steroid flare reaction including increased pain andredness at injection site which should be treated with ice and resolvewithin 24 hours. ? Gigi Harrell, DO Physician Signature: I reviewed the images and approve the documentation above.: Signed byGigi Harrell on Tuesday, October 15, 2019 at 9:29:52 AM Performing Organization Address City/State/Zipcod e Phone Number Q-PATH documented in this encounter Visit Diagnoses Diagnosis Greater trochanteric pain syndrome of both lower extremities- Primary documented in this encounter Administered Medications Inactive Administered Medications - up to 3 most recent administrations Medication Order MAR Action Action Date Dose Rate Site ROPivacaine 0.5% 3 mL - DEPO-Medrol 40 mg/mL 1 mL inj 4 mL 4 mL, Injection, ONCE, Tu10/15/19 at 0945, For 1 dose, ROPivacaine 0.5 % 3 mL DEPO-Medrol 40 mg/mL 1 mL TOTAL VOLUME = 4 mL REFRIGERATE AND SHAKE WELL, Given 10/15/2019 12:30 PM EDT 4 mL Hip Right ROPivacaine 0.5% 3 mL - DEPO-Medrol 40 mg/mL 1 mL inj 4 mL 4 mL, Injection, ONCE, Mon10/15/19 at 0945, For 1 dose, ROPivacaine 0.5 % 3 mL DEPO-Medrol 40 mg/mL 1 mL TOTAL VOLUME = 4 mL REFRIGERATE AND SHAKE WELL, Given 10/15/2019 12:29 PM EDT 4 mL Hip Left documented in this encounter Advance Directives Documents on File Type Date Recorded Patient Early Childhood Worker Expl 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 Advanced Directive
--- OUTSIDE RECORDS SUMMARY | 2023-02-20 21:45 | External Medical Summary | Summary of Care ---
Author Name Unknown Organization [place] [address] Care Team Providers Care Supervising Chef Name Role Phone Armani Hough MD Primary Care Provider + [phone] Reason for Visit * Reason Comments Acute Encounter Details Date Type Department Care Team Description 05/21/2019 Office Visit Internal Medicine [address] [id number] Jannie Carty PA-C [address] [place] [address] [place] [id number] Rib pain on right side* Allergies No Known Allergiesdocumented as of this encounter (statuses as of 05/21/2019) Medications Medication Sig Dispensed Refills Start Date End Date Status LISINOPRIL 40 MG PO TABS One pill by mouth once a day from MS 90 Tab 3 12/13/2011 Active TOPROL XL 50 MG PO TB24 One pill by mouth twice a day from MS 90 Tab 3 12/13/2011 Active VIAGRA 100 [...] a day. 20 Tab 0 05/21/2019 Active documented as of this encounter (statuses as of 05/21/2019) Active Problems Problem Noted Date Essential tremor [...] as of this encounter (statuses as of 05/21/2019) Resolved Problems Problem Noted Date Resolved Date [...] Lipid Taxonomy. Other chronic sinusitis 10/17/19 18 Building Pressure Washer's cramp 03/28/2019 documented as of this encounter (statuses as of 05/21/2019) Immunizations Name Administration Dates Next Due Pneumococcal [...] Sign Reading Time Taken Comments Blood Pressure 122/70 05/21/2019 8:25 AM EST Pulse 64 05/21/2019 8:25 AM EST Temperature 35.7 C (96.2 F) 05/21/2019 8:25 AM ES T Respiratory Rate 12 05/21/2019 8:25 AM EST Oxygen Saturation - - Inhaled Oxygen Concentration - - Weight 93.9 kg (207 lb) 05/21/2019 8:25 AM EST Height - - Body Mass Index 29.7 10/09/2018 10:29 AM EDT documented in this [...] Progress Notes * Jannie Carty PA-C - 05/21/2019 8:29 AM EST Nursing Notes: Lisbeth Ferguson LPN 05/21/19 0828 Signed Pt is here for right side rib pain , pt not aware of doing anything to them , this started a week ago, constant pain and gets worse when he tries to do things, sitting he still feels it but worse with movement Pt here today with pain at right anterior ribs. Pt states that he was bending over and putting laundry in the dryer. He felt something pop at right rib area. He had a lot of pain. It hasn't really cleared. This was about a week ago. Pt has more pain with movements, coughing, sneezing. Pt denies redness, swelling, bruising. Pt has been taking ibuprofen and it did help but not so much anymore. Review of patient's allergies indicates: No Known Allergies Current Outpatient Medications Medication Sig Dispense Refill predniSONE (DELTASONE) 10 MG Tablet One daily with food 90 Tab 1 famotidine (PEPCID) 20 MG Tablet Take 1 Tab by mouth daily. 90 Tab 1 omeprazole (PRILOSEC) 20 MG CPDR Take 1 Cap by mouth daily. 90 Cap 1 baclofen (LIORESAL) 10 MG Tablet TAKE 2 TABLETS BY MOUTH IN THE MORNING AND 1 TABLET IN THE EVENING 270 Tab 1 sertraline (ZOLOFT) 25 MG Tablet Take 1 Tab by mouth daily. 30 Tab 5 Hydrocortisone 2.5 % ointment Apply to rash on the face twice daily x 3-4 days, then 2-3 x's per week. 15 g 0 traZODone (DESYREL) 100 MG Tablet TAKE 1/2 TABLET DAILY AT BEDTIME 90 Tab 1 BuPROPion HCl ER, SR, 200 MG TB12 Take 200 mg by mouth 2 times a day. 1 twice daily 0 Cholecalciferol (VITAMIN D) 2000 UNITS Tablet Take 2,000 Units by mouth daily. atorvaSTATin (LIPITOR) 40 MG Tablet daily 30 Tab 5 triamcinolone acetonide (ARISTOCORT) 0.1 % cream Apply [...] a day from [place] 90 Tab 3 tacrolimus (PROTOPIC) 0.1 % ointment Apply to psoriasis on the genitals twice daily as needed for flares. 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 rate 12, weight 93.9 kg (207 lb). GENERAL: alert, healthy and mild distress HEART: regular rate & rhythm, no murmurs and no gallops LUNGS: chest symmetric with normal AP diameter, no chest deformities noted, no chest wall tenderness, lungs clear to auscultation CHEST: pain with palpation at right sided anterior ribs. No edema, no erythema, no ecchymosis. A:Rib pain on right side (Primary) - XR RIBS UNILATERAL W/PA CHEST MINIMUM 3 VIEWS - baclofen (LIORESAL) 10 MG Tablet; Take 1 Tab by mouth 2 times a day. Start above med. Will xray ribs. Heat/ice, ROM exercises. Any questions/problems, please call. Follow Up: Return if symptoms worsen or fail to improve. Jannie Carty PA-C documented in this encounter Nursing Notes * Lisbteh Ferguson LPN - 05/21/2019 8:26 AM EST Pt is here for right side rib pain , pt not aware of doing anything to them , this started a week ago, constant pain and gets worse when he tries to do things, sitting he still feels it but worse with movement documented in this encounter Plan of Treatment Upcoming Encounters Date Type Specialty Care Team Description 10/11/2019 Office Visit Internal Medicine Armani Hough MD [address] [place] [address] [place] [address] [phone] 01/20/2020 Office Visit Neurology Lynn Hoover MD 200 [facility] [place] [address] [phone] 03/17/2020 Office Visit Dermatology Nikia Canales MD 200 [facility] [place] [address] [phone] Pending Results Name Type Priority Associated Diagnoses Date /Time XR RIBS UNILATERAL W/PA CHEST MINIMUM 3 VIEWS Medical Imaging Routine Rib pain on right side 05/21/2019 8:43 AM EST Health Maintenance Due Date Last Done Comments [...] as of this encounter Visit Diagnoses Diagnosis Rib pain on right side- Primary Chest pain, unspecified documented in this encounter Advance Directives Documents on File Type Date Recorded Patient Calender Operator Expl 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
--- OUTSIDE RECORDS SUMMARY | 2023-02-20 21:45 | External Medical Summary | Summary of Care ---
Author Name Unknown Organization [place] [address] Care Team Providers Care Furniture Repair Technician Name Role Phone Armani Hough MD Primary Care Provider + [phone] Reason for Visit * Reason Comments Pt Portal Med Renewal Encounter Details Date Type Department Care Team Description 08/28/2019 Refill Dermatology [facility] [address] [place] [address] Margi Love MD [address] [place] [address] [phone] Dermatitis* Allergies No Known Allergiesdocumented as of this encounter (statuses as of 08/28/2019) Medications Medication Sig Dispensed Refills Start Date End Date Status LISINOPRIL 40 MG PO TABS One pill by mouth once a day from ND 90 Tab 3 12/13/2011 Active TOPROL XL 50 MG PO TB24 One pill by mouth twice a day from ND 90 Tab 3 12/13/2011 Active VIAGRA 100 [...] 60 g 2 12/28/2015 08/28/2019 Discontinue d(Refill) Hydrocortisone 2.5 % ointment Apply to rash on the face twice daily x 3-4 days, then 2-3 x's per week. 15 g 0 05/22/2018 08/28/2019 Discontinue d(Refill) documented as of this [...] Lipid Taxonomy. Other chronic sinusitis 10/17/19 18 Security Ambassador's cramp 03/28/2019 documented as of this encounter [...] 12:07 PM EDT Signed Prescriptions: Disp Refills Hydrocortisone 2.5 % ointment 15 g 1 Sig: Apply to rash on the face twice daily x 3-4 days, then 2-3 x's per week.Authorizing Provider: MARGI LOVE * Telephone Encounter - Rober Chavez LPN - 08/28/2019 11:29 AM EDT Pending Prescriptions: Disp Refills Hydrocortisone 2.5 % ointment 15 g 0 Sig: Apply to rash on the face twice daily x 3-4 days, then 2-3 x's per week. * Telephone Encounter - Carrie Castellanos OSA - 08/28/2019 11:16 AM EDT Pending Prescriptions: Disp Refills Hydrocortisone 2.5 % ointment 15 g 0 Sig: Apply to rash on the face twice daily x 3-4 days, then 2-3 x's per week. Last Office/Telemedicine Visit: 04/25/2019 Next Office Visit: 03/17/2020 Scheduled Provider(s): Margi Love MD Last date the medication was ordered: 05/22/2018 Patient Active Problem List Diagnosis Code Primary [...] 10/14/16 33 FINAL Hemoglobin AIC Results: HEMOGLOBIN, [id number] LAB(%) Carleen Dt/Tm Resulted Value Status 09/08/16 10/14/16 5.4 FINAL 05/12/14 06/12/14 5.8 FINAL * Telephone Encounter - Carrie Castellanos OSA - 08/28/2019 11:16 AM EDT [facility] Cuong Li would like a refill of the following medications: Hydrocortisone 2.5 % ointment [Margi Love MD] Preferred pharmacy: [id number] [address] [facility] documented in this encounter Plan of Treatment Upcoming Encounters Date Type Specialty Care Team Description 10/03/2019 Hospital Encounter Endoscopy Antoinette Godinez MD 132 [facility] [place] [address] [phone] 10/03/2019 Surgery Endoscopy Antoinette Godinez MD 132 [facility] [place] [address] [phone] COLONOSCOPY FLEXIBLE PROXIMAL DIAGNOSTIC 10/11/2019 Office Visit Internal Medicine Armani Hough MD [address] [place] [address] [place] [address] [phone] 10/15/2019 Office Visit Orthopedics Gigi Harrell, [address] [place], [place] [phone] 01/20/2020 Office Visit Neurology Lynn Hoover MD [address] [place] [address] [phone] 03/17/2020 Office Visit Dermatology Margi Love MD [address] [place] [address] [phone] Health Maintenance Due Date Last Done Comments [...] as of this encounter Visit Diagnoses Diagnosis Dermatitis- Primary Contact dermatitis and other eczema, due to unspecified cause documented in this encounter Advance Directives Documents on File Type Date Recorded Patient Financial Institution Treasurer Expl 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 Advanced Directive
--- OUTSIDE RECORDS SUMMARY | 2023-02-20 21:45 | External Medical Summary | Summary of Care ---
Author Name Unknown Organization [place] [address] Care Team Providers Care Improvement Nurse Name Role Phone Armani Hough MD Primary Care Provider + [phone] Reason for Visit * Reason Comments Advice Encounter Details Date Type Department Care Team Description 07/22/2019 Telephone Orthopaedics [facility] 132 [facility] [place] [address] Matthew Brice MD 132 [facility] [place] [address] [phone] Advice Allergies No Known Allergiesdocumented as of [...] Lipid Taxonomy. Other chronic sinusitis 10/17/19 18 Layboy Tender's cramp 03/28/2019 documented as of this [...] Hospital Encounter Endoscopy Antoinette Godinez MD 132 [facility] [place] [address] [phone] 08/01/2019 Surgery Endoscopy Antoinette Godinez [facility] [address] [facility] [place] [address] COLONOSCOPY FLEXIBLE PROXIMAL DIAGNOSTIC 08/07/2019 Office Visit Orthopedics Matthew Brice MD 132 [facility] [place] [address] 10/11/2019 Office Visit Internal Medicine Armani Hough MD [address] [place] [address] [place] [address] [phone] 01/20/2020 Office Visit Neurology Lynn Hoover MD [address] [place] [address] [phone] 03/17/2020 Office Visit Dermatology Nikia Canales MD [address] [place] [address] [phone] Health Maintenance Due Date Last Done Comments [...] Documents on File Type Date Recorded Patient Governor Assembler Expl 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 Advanced Directive
--- OUTSIDE RECORDS SUMMARY | 2023-02-20 21:45 | External Medical Summary | Summary of Care ---
Author Name Unknown Organization [place] [address] Care Team Providers Care Highway Truck Driver Name Role Phone Armani Hough MD Primary Care Provider + [phone] Reason for Visit * Reason Comments Acute Encounter Details Date Type Department Care Team Description 05/21/2019 Office Visit Internal Medicine [address] [id number] Jannie Carty PA-C [address] [place] [address] [place] [id number] Rib pain on right side* Allergies No Known Allergiesdocumented as of this encounter (statuses as of 05/21/2019) Medications Medication Sig Dispensed Refills Start Date End Date Status LISINOPRIL 40 MG PO TABS One pill by mouth once a day from AL 90 Tab 3 12/13/2011 Active TOPROL XL 50 MG PO TB24 One pill by mouth twice a day from [place] 90 Tab 3 12/13/2011 Active VIAGRA 100 [...] Taxonomy. 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 [employer] O:Blood pressure 122/70, pulse 64, temperature 35.7 [...] documented in this encounter Nursing Notes * Lisbeth Ferguson LPN - 05/21/2019 8:26 AM EST [...] Visit Internal Medicine Armani Hough MD [address] [place] [address] [place] [address] [phone] 01/20/2020 Office Visit Neurology Lynn Hoover MD 200 [facility] [place] [address] [phone] 03/17/2020 Office Visit Dermatology Nikia Canales MD 200 [facility] [place] [address] [phone] Pending Results Name Type Priority Associated Diagnoses [...] Documents on File Type Date Recorded Patient Teacher Vocational Training Expl 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
--- OUTSIDE RECORDS SUMMARY | 2023-02-20 21:46 | External Medical Summary | Summary of Care ---
Author Name Unknown Organization [place] [address] Care Team Providers Care Mammalogist Name Role Phone Armani Arreguin MD Primary Care Provider + [phone] Reason for Visit * Reason Comments Pt Portal Med Renewal Encounter Details Date Type Department Care Team Description 02/01/2019 Refill Internal Medicine [address] [address] Armani Arreguin MD [address] [place] [address] [place] [address] [phone] Esophageal reflux Allergies No Known Allergiesdocumented as of this encounter (statuses as of 02/01/2019) Medications Medication Sig Dispensed Refills Start Date End Date Status LISINOPRIL 40 MG PO TABS One pill by mouth once a day from GA 90 Tab 3 12/13/2011 Active TOPROL XL 50 MG PO TB24 One pill by mouth twice a day from [place] 90 Tab 3 12/13/2011 Active VIAGRA 100 MG PO TABSIndications:I mpotence of organic origin one as needed 6 Tab 5 04/26/2013 Active triamcinolone acetonide (ARISTOCORT) 0.1 % creamIndications: Other psoriasis Apply topically to affected area 2 times a day as needed for Itching. To affected area of body. 80 g 3 08/26/2014 Active atorvaSTATin (LIPITOR) 40 MG Tablet daily 30 Tab 5 10/02/2014 Active tacrolimus (PROTOPIC) 0.1 % ointmentIndicatio ns:Other psoriasis Apply to psoriasis on the genitals [...] AT BEDTIME 90 Tab 1 04/17/2017 Active Ketoconazole 2 % cream Apply to rash on the face and ears 2-3 x's per week. 15 g 2 03/15/2018 Active Hydrocortisone 2.5 % ointment Apply to [...] THE EVENING 270 Tab 1 12/17/2018 Active raNITIdine HCl 150 MG CapsuleIndication s:Esophageal reflux Take 1 Cap by mouth at bedtime. 90 Cap 3 12/31/2018 Active omeprazole (PRILOSEC) 20 MG CPDRIndications:E sophageal reflux Take 1 Cap by mouth daily. 90 Cap 1 02/01/2019 Active omeprazole (PRILOSEC) 20 MG CPDRIndications:E sophageal reflux TAKE 1 CAP BY MOUTH DAILY. 90 Cap 1 05/18/2018 02/01/2019 Discontinued documented as of this encounter (statuses as of 02/01/2019) Active Problems Problem Noted Date Essential tremor 01/12/2018 Rupture of hamstring tendon 05/26/2017 Overview: right Persistent insomnia 06/22/2015 History of basal cell [...] Gastroesophageal reflux disease with eso phagitis 10/17/2001 Essential hypertension with goal blood p ressure less than 140/90 Tobacco use disorder Psoriasis Rosacea Hyperlipidemia LDL goal <130 Mold Shop Supervisor's cramp documented as of this encounter (statuses as of 02/01/2019) Resolved Problems Problem Noted Date Resolved Date Benign neoplasm of colon 10/15/2010 017 Overview: polyp x1, path shows adenomatous tissue repeat in 5 years Mixed dyslipidemia 04/28/2009 04/28/2009 Dyslipidemia, goal to be determined 04/27/2009 04/28/2009 Overview: Per Lipid Taxonomy. Essential and other specified forms of tremor 12/21/2012 PURE HYPERCHOLESTEROLEM 04/27/20 09 Overview: Per Lipid Taxonomy. Other chronic sinusitis 10/17/19 18 documented as of this encounter (statuses as of 02/01/2019) Immunizations Name Administration Dates Next Due Pneumococcal Conjugate Vacc, 13 Valent (Prevnar) 12/18/2012 Pneumococcal Polysaccharide PPV23 (Pneumovax) 09/18/2013,12/18/2008 Seasonal Influenza, Quadriva lent, No Preserve, 6 Mons & Above, IM 02/08/2018 Seasonal Influenza, Quadriva lent, No Preserve, IM 02/09/2017,01/15/2016,03/16/2015 Seasonal Influenza, Trivalen t, with Preserve, 3yr [...] Comments Yes 6 12 oz of beer 3.0 occ Sex Assigned at Date Recorded Not [...] encounter Miscellaneous Notes * Telephone Encounter - Armani Arreguin MD - 02/01/2019 11:36 AM EDT Signed Prescriptions: Disp Refills omeprazole (PRILOSEC) 20 MG CPDR 90 Cap 1 Sig: Take 1 Cap by mouth daily. Authorizing Provider: ARMANI ARREGUIN * Telephone Encounter - Mik Morrison LPN - 02/01/2019 11:28 AM EDT Pending Prescriptions: Disp Refills omeprazole (PRILOSEC) 20 MG CPDR 90 Cap 1 Sig: Take 1 Cap by mouth daily. 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 GENERALIZED ANXIETY DIS F41.1 Major depressive disorder, single episode, moderate (HCC) F32.1 ADVANCE DIRECTIVE INFORMATION Raynaud's syndrome I73.00 Hyperlipidemia LDL goal <130 E78.5 Mold Shop Supervisor's cramp F48.8 History of squamous cell carcinoma Z85.89 History of basal cell carcinoma Z85.828 Persistent insomnia G47.00 Rupture of hamstring tendon S76.319A Essential tremor G25.0 Labs: CREATININE-OUTSIDE LAB(MG/DL) Carleen [...] 10/14/16 33 FINAL Hemoglobin AIC Results: HEMOGLOBIN, [id number] LAB(%) Carleen Dt/Tm Resulted Value Status 09/08/16 10/14/16 5.4 FINAL 05/12/14 06/12/14 5.8 FINAL * Telephone Encounter - Mik Morrison LPN - 02/01/2019 11:27 AM EDT Message from [employer]: Cuong Salvatore Li would like a refill of the following medications: omeprazole (PRILOSEC) 20 MG CPDR [Armani Arreguin MD] [facility] [place] documented in this encounter Plan of Treatment Upcoming Encounters Date Type Specialty Care Team Description 03/15/2019 [facility] [address] [phone] 04/11/2019 Office Visit Internal Medicine Armani Arreguin MD [address] [place] [address] [place] [address] [phone] 01/20/2020 [facility] [address] [facility] [address] [phone] Health Maintenance Due Date Last Done Comments Pneumococcal Vaccine: 65+ Years (2 of 2 - PPSV23) 09/18/2018 09/18/2013, 12/18/2012, 12/18/2008 Influenza Vaccine (FLU shot) (#1) 2019 02/08/2018, 02/14/2017, 02/09/2017, Additional history exists COLONOSCOPY-EVERY 3 YRS AGES 18-100 06/03/2019 06/03/2016, 06/03/2016, 10/15/2010 DIABETES SCREEN EVERY 3 YRS-AGE 45 AND ABOVE 09/12/2021 09/12/2018, 09/11/2017, 09/08/2016, Additional history exists DTaP,Tdap,and Td Vaccines (2 - Td) 12/12/2021 12/13/2011, 07/06/2006 LIPID SCREEN EVERY 5 YRS-MEN AGE 35-75 09/13/2023 09/12/2018, 09/11/2017, 09/08/2016, Additional history exists MENINGOCOCCAL (MENACTRA) Aged Out No longer eligible based on patient's age to complete this topic documented as of this encounter Implants Not on filedocumented as of this encounter Visit Diagnoses Diagnosis Esophageal reflux documented in this encounter Advance Directives Documents on File Type Date Recorded Patient Poiser Expl anation Advanced Directive Advanced Directive Advanced Directive Advanced Directive Advanced Directive Advanced Directive Advanced Directive Advanced Directive 06/03/2016 8:20 AM Advanced Directive
--- OUTSIDE RECORDS SUMMARY | 2023-02-20 21:46 | External Medical Summary | Summary of Care ---
Author Name Unknown Organization [place] [address] Care Team Providers Care Coordinate Measuring Machine Technician Name Role Phone Armani Hough MD Primary Care Provider + [phone] Reason for Visit * Reason Comments Encounter Created in Error Encounter Details Date Type Department Care Team Description 02/12/2019 Telephone Family Practice [facility] [address] [facility] [place] [address] Tera Marvin MD [address] [facility] [place] [address] [phone] Encounter Created in Error Allergies No Known Allergiesdocumented as of this encounter (statuses as of 02/12/2019) Medications Medication Sig Dispensed Refills Start Date End Date Status LISINOPRIL 40 MG PO TABS One pill by mouth once a day from [place] 90 Tab 3 12/13/2011 Active TOPROL XL 50 MG PO TB24 One pill by mouth twice a day from [place] 90 Tab 3 12/13/2011 Active VIAGRA 100 [...] 5 10/02/2014 Active tacrolimus (PROTOPIC) 0.1 % ointmentIndications:O ther [...] 1 12/17/2018 Active raNITIdine HCl 150 MG CapsuleIndications:Es ophageal reflux Take 1 Cap by mouth at bedtime. 90 Cap 3 12/31/2018 Active omeprazole (PRILOSEC) 20 MG CPDRIndications:Esoph ageal reflux Take 1 Cap by mouth daily. 90 Cap 1 02/01/2019 Active documented as of this encounter (statuses as of 02/12/2019) Active Problems Problem Noted Date Essential tremor [...] disorder Psoriasis Rosacea Hyperlipidemia LDL goal <130 Configurator's cramp documented as of this encounter (statuses as of 02/12/2019) Resolved Problems Problem Noted Date Resolved Date [...] as of this encounter (statuses as of 02/12/2019) Immunizations Name Administration Dates Next Due Pneumococcal [...] encounter Miscellaneous Notes * Telephone Encounter - Tera Marvin MD - 02/12/2019 12:24 PM EDT Encounter entered in error documented in this encounter Plan of Treatment Upcoming Encounters Date Type Specialty Care Team Description 03/15/2019 Office Visit Dermatology Nikia Canales MD [address] [facility] [address] [phone] 04/11/2019 Office Visit Internal Medicine Armani Hough MD [address] [place] [address] [place] [address] [phone] 01/20/2020 Office Visit Neurology Lynn Hoover MD [address] [facility] [address] [phone] Health Maintenance Due Date Last Done Comments [...] Documents on File Type Date Recorded Patient Roofing Machine Tender Expl anation Advanced Directive Advanced Directive Advanced Directive Advanced Directive Advanced Directive Advanced Directive Advanced Directive Advanced Directive 06/03/2016 8:20 AM Advanced Directive
--- OUTSIDE RECORDS SUMMARY | 2023-02-20 21:46 | External Medical Summary | Summary of Care ---
Author Name Unknown Organization [place] [address] Care Team Providers Care Mental Health Nurse Name Role Phone Armani Hough MD Primary Care Provider + [phone] Reason for Visit * Reason Comments Re-Check Encounter Details Date Type Department Care Team Description 04/11/2019 Office Visit Internal Medicine [address] [address] Armani Hough MD [address] [place] [address] [phone] Primary osteoarthritis of both hips*; Need for pneumococcal vaccination; Primary hypertension; Gastroesophageal reflux disease with esophagitis; Major depressive disorder, single episode, moderate (HCC); Hyperlipidemia LDL goal <130; Essential tremor Allergies No Known Allergiesdocumented as of this encounter (statuses as of 04/11/2019) Medications Medication Sig Dispensed Refills Start Date [...] of both hips One daily with food 30 Tab 5 04/11/2019 Active documented as of this encounter (statuses as of 04/11/2019) Active Problems Problem Noted Date Essential tremor [...] as of this encounter (statuses as of 04/11/2019) Resolved Problems Problem Noted Date Resolved Date [...] Lipid Taxonomy. Other chronic sinusitis 10/17/19 18 Provider Network Mgr's cramp 03/28/2019 documented as of this encounter (statuses as of 04/11/2019) Immunizations Name Administration Dates Next Due Pneumococcal Conjugate Vacc, 13 Valent (Prevnar) 12/18/2012 Pneumococcal Polysaccharide PPV23 (Pneumovax) 02/05/2019,09/18/2013,12/18/2008 Seasonal Influenza, Quadriva lent, No Preserve, 6 Mons & Above, IM 02/08/2018 Seasonal Influenza, Quadriva lent, No Preserve, IM 02/05/2019,02/09/2017,01/15/2016,03/16 Seasonal Influenza, Trivalen t, with Preserve, 3yr [...] Sign Reading Time Taken Comments Blood Pressure 138/78 04/11/2019 8:09 AM EST Pulse 72 04/11/2019 8:09 AM EST Temperature 36 C (96.8 F) 04/11/2019 8:09 AM EST Respiratory Rate 16 04/11/2019 8:09 AM EST Oxygen Saturation - - Inhaled Oxygen Concentration - - Weight 92.6 kg (204 lb 2 oz) 04/11/2019 8:09 AM EST Height - - Body Mass Index 29.29 10/09/2018 10:29 AM EDT documented in this [...] this encounter Patient Instructions * Patient Instructions* Marina Partida LPN - 04/11/2019 8:03 AM EST ~~PATIENT INSTRUCTIONS FOR PNEUMOCOCCAL VACCINE~~ Possible side effects of pneumococcal vaccine, (pneumonia shot), are usually mild and can include: 1. Soreness or redness at injection site 2. Low grade fever 3. Body aches You may use Tylenol/Acetaminophen as needed for these symptoms. LET YOUR DOCTOR KNOW IMMEDIATELY IF YOU HAVE DIFFICULTY BREATHING OR SWALLOWING, EXPERIENCE ITCHINGOF FEET OR HANDS, HAVE SWELLING OF EYES, FACE OR INSIDE OF NOSE. documented in this encounter Progress Notes * Armani Hough MD - 04/11/2019 8:29 AM EST Cuong continues to have a lot of hip pain and the diclofenac helped until it tore up his stomach. Celebrex helped his other arthritis, like in his hands, but not the hips. 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 [facility] and flu shot and Pneumovax in February. He is scheduled for surgery on his basal cell of the back. Right now his stomach is ok. No complaints of headache, trouble with vision or hearing. Eating well, with no bowel or bladder complaints. Denies chest pain or palpitations. Denies shortness of breath, PND, or orthopnea. No skin rashes or breakdown. No changes in mentation. The rest of a 10 point review of systems is negative. Health Maintenance addressed. He will let us know what date he had the shots. Past Medical History: Diagnosis Date Avulsion of [...] Rosacea Rupture of hamstring tendon 05/26/2017 right Provider Network Mgr's cramp Past Surgical History: Procedure Laterality Date COLONOSCOPY W/ LESION REMOVAL, SNARE 10/15/2010 polyp x1, path shows adenomatous tissue repeat in 5 years COLONOSCOPY, DIAGNOSTIC (RECTUM) 06/03/2016 7,6,2 mm polyps ascending, 6,3 mm polyps transverse colon Repeat 3 years/COLONOSCOPY FLEXIBLE PROXIMAL DIAGNOSTIC performed by Antoinette Godinez MD at ENDOSCOPY [facility] CT LOWER EXTREMITY W CONTRAST [...] level: Not on file Occupational History 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 Employer: [employer] Social Needs Financial resource strain: Not on file Food insecurity: Worry: Not on file Inability: Not on file Transportation needs: Medical: Not on file Non-medical: Not on file Tobacco Use Smoking status: Former Smoker Packs/day: 0.25 Years: 40.00 Pack years: 10.00 Types: Cigarettes Last attempt to quit: 05/26/2014 Years since quittin.8 Smokeless tobacco: Never [...] file Gets together: Not on file Attends oriental orthodox service: Not on file Active member of [...] 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 tacrolimus (PROTOPIC) 0.1 % ointment Apply to psoriasis on the genitals twice daily as needed for flares. 60 g 2 atorvaSTATin (LIPITOR) 40 MG Tablet daily 30 Tab 5 triamcinolone acetonide (ARISTOCORT) 0.1 % cream Apply topically to affected area 2 times a dayas needed for Itching. To affected area of body. 80 g 3 VIAGRA 100 MG PO TABS one as needed 6 Tab 5 LISINOPRIL 40 MG PO TABS One pill by mouth once a day from [place] 90 Tab 3 TOPROL XL 50 MG PO TB24 One pill by mouth twice a day from [place] 90 Tab 3 [place] lot [place] and I don't know if we have all of them right. O: Blood pressure 138/78, pulse 72, temperature 36 C (96.8 F), temperature source Tympanic, resp. rate 16, weight 92.6 kg (204 lb 2 oz). General appearance: well developed, well nourished and in no acute distress. Head normocephalic andatraumatic. No facial asymmetry. Eye exam; PEERLA, EOMI. No scleral icterus or nystagmus. Conjunctiva are pink and not injected. Oropharynx: no exudate, dentures and no pharyngeal inflammation. TMs and canals normal. Trachea is in the midline. Neck supple with no adenopathy or thyromegaly. No carotid bruits. Chest expands equally and is symmetrical with normal AP diameter. Lungs clear, with no wheezes, rales, or rhonchi. Heart: S1 and S2 normal. PMI not obviously displaced. Heart regular, no murmurs, gallops, clicks or rubs. No CVA tenderness. No calf swelling or tenderness. No pedal edema. He has a skin lesion on his back. He has a lumbar surgical scar as well. Very slight hand tremor. A: Primary osteoarthritis of both hips (Primary) - predniSONE (DELTASONE) 10 MG Tablet; One daily with food Need for pneumococcal vaccination Primary hypertension Gastroesophageal reflux disease with esophagitis Major depressive disorder, single episode, moderate (HCC) Hyperlipidemia LDL goal <130 Essential tremor Follow Up: Return in about 6 months (around 10/11/2019). Continue other meds as before. documented in this encounter Nursing Notes * Marina Partida LPN - 04/11/2019 8:04 AM EST 6 month recheck documented in this encounter Plan of Treatment Upcoming Encounters Date Type Specialty Care Team Description 04/25/2019 Office Visit Dermatology Nikia Canales MD [address] [place] [address] [phone] Sp, Proc Rm Derm [address] [place] [address] [phone] 10/11/2019 Office Visit Internal Medicine Armani Hough MD [address] [place] [address] [place] [address] [phone] 01/20/2020 Office Visit Neurology Lynn Hoover MD [address] [facility] [place] [address] [phone] 03/17/2020 Office Visit Dermatology Nikia Canales MD [address] [place] [address] [phone] Health Maintenance Due Date Last Done Comments Influenza Vaccine (FLU shot) (#1) 2019 02/08/2018, 02/09/2017, 01/15/2016, Additional history exists COLONOSCOPY-EVERY 3 YRS AGES 18-100 06/03/2019 06/03/2016, 06/03/2016, 10/15/2010 DIABETES SCREEN EVERY 3 YRS-AGE 45 AND ABOVE 09/12/2021 09/12/2018, 09/11/2017, 09/08/2016, Additional history exists DTaP,Tdap,and Td Vaccines (2 - Td) 12/12/2021 12/13/2011, 07/06/2006 LIPID SCREEN EVERY 5 YRS-MEN AGE 35-75 09/13/2023 09/12/2018, 09/11/2017, 09/08/2016, Additional history exists Pneumococcal Vaccine: 65+ Years (2 of 2 - PPSV23) 02/06/2024 09/18/2013, 12/18/2012, 12/18/2008 MENINGOCOCCAL (MENACTRA) Aged Out No longer eligible based on patient's age to complete this topic documented as of this encounter Implants Not on filedocumented as of this encounter Visit Diagnoses Diagnosis Primary osteoarthritis of both hips- Primary Primary localized osteoarthrosis, pelvic region and thigh Need for pneumococcal vaccination Need for prophylactic vaccination against streptococcus pneumoniae (pneumococcus) Primary hypertension Unspecified essential hypertension Gastroesophageal reflux disease with esophagitis Major depressive disorder, single episode, moderate (HCC) Major depressive disorder, single episode, moderate Hyperlipidemia LDL goal <130 Other and unspecified hyperlipidemia Essential tremor Essential and other specified forms of tremor documented in this encounter Advance Directives Documents on File Type Date Recorded 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
--- OUTSIDE RECORDS SUMMARY | 2023-02-20 21:46 | External Medical Summary | Summary of Care ---
Author Name Unknown Organization [place] [address] Care Team Providers Care Livestock Ranch Hand Name Role Phone Armani Hough MD Primary Care Provider + [phone] Reason for Visit * Reason Comments Re-Check Encounter Details Date Type Department Care Team Description 04/11/2019 Office Visit Internal Medicine [address] [address] Armani Hough MD [address] [place] [address] [phone] Primary osteoarthritis of both hips*; Need for [...] pill by mouth once a day from [place] 90 Tab 3 12/13/2011 Active TOPROL XL [...] Lipid Taxonomy. Other chronic sinusitis 10/17/19 18 Talent Scout's cramp 03/28/2019 documented as of this encounter [...] sees Dr Hoover for the tremor and filing writer's cramp. 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 Current Outpatient Medications [...] pill by mouth once a day from [place] 90 Tab 3 TOPROL XL 50 MG PO TB24 One pill by mouth twice a day from [place] 90 Tab 3 He gets a lot [place] and I don't know if we have [...] Office Visit Dermatology Nikia Canales MD [address] [place] [address] [phone] Sp, Proc Rm Derm [address] [place] [address] [phone] 10/11/2019 Office Visit Internal Medicine Armani Hough MD [address] [place] [address] [place] [address] [phone] 01/20/2020 Office Visit Neurology Lynn Hoover MD [address] [place] [address] [phone] 03/17/2020 Office Visit Dermatology Nikia Canales MD [address] [place] [address] [phone] Health Maintenance Due Date Last Done Comments [...] Documents on File Type Date Recorded Patient Service Attendant Cafeteria Expl 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
--- OUTSIDE RECORDS SUMMARY | 2023-02-20 21:46 | External Medical Summary | Summary of Care ---
Author Name Unknown Organization [place] [address] Care Team Providers Care Coal Hauler Operator Name Role Phone Armani Arreguin MD Primary Care Provider + [phone] Reason for Visit * Reason Comments Skin Check Patient presents for yearly skin check, notes no new concerns- psoriasis, stable w/protopic- seborrheic dermatitis, stable w/hydrocortisone- history of NMSC. Encounter Details Date Type Department Care Team Description 03/15/2019 Office Visit Dermatology [facility] [address] [place] [address] Nikia Canales MD [address] [place] [address] [phone] Skin tumor*; Psoriasis vulgaris; History of nonmelanoma skin cancer; Seborrheic dermatitis; Allergic contact dermatitis due to metals Allergies No Known Allergiesdocumented as of this encounter (statuses as of 03/15/2019) Medications Medication Sig Dispensed Refills Start Date [...] of body. 80 g 3 08/26/2014 Active Additional information Patient not taking. Reported on 03/15/2019 8:42 AM atorvaSTATin (LIPITOR) 40 MG Tablet daily 30 [...] 1 12/17/2018 Active omeprazole (PRILOSEC) 20 MG CPDRIndications:E sophageal reflux Take 1 Cap by mouth daily. 90 Cap 1 02/01/2019 Active famotidine (PEPCID) 20 MG TabletIndications :Gastroesophageal reflux disease with esophagitis Take 1 Tab by mouth daily. 90 Tab 1 03/13/2019 Active Ketoconazole 2 % cream Apply to rash on the face and ears 2-3 x's per week. 15 g 2 03/15/2018 03/15/2019 Discontinued (Medication List Clean Up) raNITIdine HCl 150 MG CapsuleIndication s:Esophageal reflux Take 1 Cap by mouth at bedtime. 90 Cap 3 12/31/2018 03/15/2019 Discontinued (Medication List Clean Up) documented as of this encounter (statuses as of 03/15/2019) Active Problems Problem Noted Date Essential tremor [...] disorder Psoriasis Rosacea Hyperlipidemia LDL goal <130 Hse Coordinator's cramp documented as of this encounter (statuses as of 03/15/2019) Resolved Problems Problem Noted Date Resolved Date [...] as of this encounter (statuses as of 03/15/2019) Immunizations Name Administration Dates Next Due Pneumococcal [...] this encounter Patient Instructions * Patient Instructions* Nikia Canales MD - 03/15/2019 8:57 AM EST Skin Surgery Wound Care Instructions CHANGE DRESSING ONCE DAILY 1. Wash hands and remove the original dressing(s) in 12-24 hours. 2. Gently clean wound(s) with soap and water. Rinse with water and pat the wound dry. 3. Apply a thin layer of Vaseline ointment with a Q-tip. 4. Cover with a bandage if area(s) is not on the face or scalp. A dressing is not required on the face or scalp. Use non-adherent dressing and paper tape if you are sensitive to band-aid adhesive sensitive. WHAT TO EXPECT AFTER SURGERY: 1. Swelling and redness may occur around the wound for several days. If the procedure(s) was around the eye, skin around the eyes is often quite swollen and discolored for several days. 2. Shave biopsy sites will have a yellow center and thin red rim surrounding it. 3. Drainage is to be expected. The drainage may be yellow-green and have a slight odor. As long as the wound itself is healing, you do not have to be concerned about the drainage. 4. If bleeding occurs, apply FIRM CONSTANT PRESSURE to the dressing with fingertips and a dry, clean wash cloth for 20 - 30 minutes. No peeking to see if bleeding has stopped. 5. If you have any concerns about the healing wound, please call at: [place] office or [facility] office documented in this encounter Progress Notes * Nikia Canales MD - 03/15/2019 8:30 AM EST SUBJECTIVE: History of Present Illness: Cuong Li is a 63 year old male seen today for a follow-up full skin examination. Last OfficeVisit: 03/15/2018. 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 New concerns today include: no new spots of concern. Follow-up psoriasis on the penis and gluteal cleft-treating with protopic 0.1% ointment with good improvement. Follow-up seborrheic dermatitis in the eyebrows and nasolabial folds-treating with ketoconazole cream with improvement. Follow-up contact dermatitis to nickel-treated with fluocinonide cream at last visit with improvement. Pt continues to wear nickel belt so flares when he wears his belt. He tries to wear suspenders at times. Actinic keratosis on the left helix treated with cryotherapy at last visit. REVIEW OF SYSTEMS: SKIN: No other new or changing moles. HEME/LYMPH: No new or enlarging lumps or bumps. MEDICA TIONS: Current Outpatient Medications Medication Sig Dispense Refill omeprazole (PRILOSEC) 20 MG CPDR Take 1 Cap by mouth daily. 90 Cap 1 raNITIdine HCl 150 MG Capsule Take 1 Cap by mouth at bedtime. 90 Cap 3 baclofen (LIORESAL) 10 MG Tablet TAKE 2 TABLETS BY MOUTH IN THE MORNING AND 1 TABLET IN THE CSAJEKS578 Tab 1 sertraline (ZOLOFT) 25 MG Tablet Take 1 Tab by mouth daily. 30 Tab 5 Hydrocortisone 2.5 % ointment Apply to rash on the face twice daily x 3-4 days, then 2-3 x's per week. 15 g 0 Ketoconazole 2 % cream Apply to rash on the face and ears 2-3 x's per week. 15 g 2 traZODone (DESYREL) 100 MG Tablet TAKE 1/2 [...] [facility] 90 Tab 3 ALLERG IES: Patient has [...] Rosacea Rupture of hamstring tendon 05/26/2017 right Hse Coordinator's cramp OBJECTIVE: GEN: Healthy, alert, no distress, appears oriented, pleasant and cooperative. SKIN: Detailed exam of hair, face including lids and lips, neck, chest, abdomen, back, bilateral upper ext. (arm, hand, fingers), bilateral lower ext. (leg, foot, toes), fingernails, toenails and buttocks completed and are normal except: 1. Scars on the right chest and right helix 2. Paoli scaling patch on the gluteal cleft 3. Paoli pearly papule on the central lower back. 4. Paoli scaling patch on the left forearm. 5. Faint pink scaling patches in the nasolabial folds 6. Paoli scaling patch on the central abdomen just below the umbilicus. ASSESS MENT/PLAN: 1. History of nonmelanoma skin cancer-No evidence of recurrence. Educated on regular use of sun protection and skin self-examination 2. Psoriasis vulgaris-BSA: 1-3%, Special Site: Genitalia/Buttocks; mild; Status: improved. Continue protopic 0.1% ointment twice daily as needed for flares 3. R/O BCC-biopsy 4. R/O BCC vs Laureen-biopsy Biopsies of the lesions noted above to establish and confirm diagnosis. The procedures, risks, benefits, alternatives and expected outcomes were discussed with the patient and consent was obtained. Time out called. Patient identified, procedure verified, site identified and verified. Patient and staff present in agreement. Areas prepped with alcohol and anesthetized with 0.5% lidocaine with epinephrine at 1:200,000 concentration. Shave biopsies of lesions performed. 20% AlCl and bandaging applied. Specimens sent to pathology. Patient instructed in routine post-op care. MYG with results 5. seborrheic dermatitis-continue ketoconazole cream 2-3 x's per week. 6. Contact dermatitis to nickel-reeducated on nickel avoidance Continue fluocinonide cream twice daily as needed for flares Patient counseled to examine herself for new [...] visit and treatment. Nikia Canales MD Ref: SELF[[id number]] NO STREET ADDRESS AVAILABLE None (office) None (fax) PCP: ARMANI ARREGUIN [address] [place] [address] [place] [address] [phone] documented in this encounter Nursing Notes * Annalee Rangel LPN - 03/15/2019 8:43 AM EST Do you have any concerns about pain management for today's visit? No Living Will or Advance Directive for Health Care as noted on problem list. My [facility] is a way you can talk to your provider on line through e-mail. Would you like to sign up? I can activate it for you? ALREADY ACTIVE Chief Complaint Patient presents with Skin Check Patient presents for yearly skin check, notes no new concerns- psoriasis, stable w/protopic- seborrheic dermatitis, stable w/hydrocortisone- history of NMSC. documented in this encounter Plan of Treatment Upcoming Encounters Date Type Specialty Care Team Description 04/11/2019 Office Visit Internal Medicine Armani Arreguin MD [address] [place] [address] [place] [address] [phone] 01/20/2020 Office Visit Neurology Lynn Hoover MD [address] [place] [address] [phone] 03/17/2020 Office Visit Dermatology Nikia Canales MD 200 [facility] [place] [address] [phone] Scheduled Orders Name Type Priority Associated Diagnoses Orde r Schedule TANGENTIAL BIOPSY OF SKIN; SINGLE LESION Procedures Routine Skin tumor Ordered: 03/15/2019 TANGENTIAL BIOPSY OF SKIN; EACH SEPARATE/ADD'L LESION Procedures Routine Skin tumor Ordered: 03/15/2019 SURGICAL PATHOLOGY Pathology Routine Skin tumor Ordered: 03/15/2019 Health Maintenance Due Date Last Done Comments [...] as of this encounter Visit Diagnoses Diagnosis Skin tumor- Primary Neoplasm of uncertain behavior of skin Psoriasis vulgaris Other psoriasis History of nonmelanoma skin cancer Personal history of other malignant neoplasm of skin Seborrheic dermatitis Seborrheic dermatitis, unspecified Allergic contact dermatitis due to metals Dermatitis due to metals documented in this encounter Advance Directives Documents on File Type Date Recorded Patient Office Assistance Expl 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
--- OUTSIDE RECORDS SUMMARY | 2023-02-20 21:46 | External Medical Summary | Summary of Care ---
Author Name Unknown Organization [place] [address] Care Team Providers Care Metal Extrusion Supervisor Name Role Phone Armani Hough MD Primary Care Provider + [phone] Reason for Visit * Reason Comments Return Neuro Encounter Details Date Type Department Care Team Description 01/17/2019 Office Visit Neurology [facility] [address] [place] [address] Lynn Hoover MD [address] [place] [address] [phone] Tray Server's cramp*; Essential tremor Allergies No Known Allergiesdocumented as of this encounter (statuses as of 01/17/2019) Medications Medication Sig Dispensed Refills Start Date End Date Status LISINOPRIL 40 MG PO TABS One pill by mouth once a day from [place] 90 Tab 3 12/13/2011 Active TOPROL XL 50 MG PO TB24 One pill by mouth twice a day from [place] 90 Tab 3 12/13/2011 Active VIAGRA 100 [...] per week. 15 g 2 03/15/2018 Active omeprazole (PRILOSEC) 20 MG CPDRIndications:E sophageal reflux TAKE 1 CAP BY MOUTH DAILY. 90 Cap 1 05/18/2018 Active Hydrocortisone 2.5 % ointment Apply to [...] at bedtime. 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 With food. 60 Tab 3 11/05/2018 01/17/2019 Discontinued documented as of this encounter (statuses as of 01/17/2019) Active Problems Problem Noted Date Essential tremor [...] disorder Psoriasis Rosacea Hyperlipidemia LDL goal <130 Tray Server's cramp documented as of this encounter (statuses as of 01/17/2019) Resolved Problems Problem Noted Date Resolved Date [...] as of this encounter (statuses as of 01/17/2019) Immunizations Name Administration Dates Next Due Pneumococcal [...] Sign Reading Time Taken Comments Blood Pressure 120/78 01/17/2019 8:36 AM EDT Pulse 60 01/17/2019 8:36 AM EDT Temperature 35.8 C (96.5 F) 01/17/2019 8:36 AM ED T Respiratory Rate 16 01/17/2019 8:36 AM EDT Oxygen Saturation - - Inhaled Oxygen Concentration - - Weight 93.1 kg (205 lb 3.2 oz) 01/17/2019 8:36 A M EDT Height - - Body Mass Index 29.44 10/09/2018 10:29 AM EDT documented in this [...] Progress Notes * Lynn Hoover MD - 01/17/2019 8:53 AM EDT CLINIC NOTES [facility] Neurology [facility] [address] [facility] [address] Cuong Li : 1955 NEUROLOGY OUTPATIENT NOTE 01/17/2019 HISTORY: Patient is referred consultative who will be receiving a copy of. 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 Patient has not taken any medicines or had Botox for business writer's cramp as he simply switched his handedness. The tremor control is adequatewith baclofen which does not cause any significant sedation. Review of systems is notable for high blood pressure heartburn joint pain hair loss all others negative there has been no change in his medical or surgical he history. His is been medically and psychiatrically ill. I have reviewed labs from the [facility] including transaminases and they are normal. Current Outpatient Medications Medication Sig Dispense Refill raNITIdine HCl 150 MG Capsule Take 1 [...] 2-3 x's per week. 15 g 0 omeprazole (PRILOSEC) 20 MG CPDR TAKE 1 CAP BY MOUTH DAILY. 90 Cap 1 Ketoconazole 2 % cream Apply to rash [...] a day from [facility] 90 Tab 3 PHYSICAL EXAM: BP 120/78 | Pulse 60 | Temp (Src) 96.5 (Tympanic) | Resp 16 | Wt 205 lbs 3.2 oz (93.078kg) | BMI 29.44 kg/m | BSA 2.14 m Patient is awake and alert there is normal speech and language. There are no carotid bruits. No heart murmurs are appreciable. There is no facial masking no head or voice tremor no resting tremor cogwheel rigidity business writer's cramp since demonstrated with the use of a ma on the left. There is full strength in the uppers. There is a mild postural tremor in both hands which worsens with intention. His gait is unremarkable IMPRESSION: Idiopathic business writer's cramp the patient has switched handedness and requires no additional therapy. Mild essential tremor doing well enough on baclofen recent liver function is normal. Return yearly Lynn Hoover MD 01/17/2019 8:53 AM documented in this encounter Nursing Notes * Kiana Willis LPN - 01/17/2019 8:33 AM EDT Patient verified identity by spelling of last name and date. Pt states he is doing about the same. documented in this encounter Plan of Treatment Upcoming Encounters Date Type Specialty Care Team Description 03/15/2019 Office Visit Dermatology Nikia Canales MD 200 [facility] [place] [address] [phone] 04/11/2019 Office Visit Internal Medicine Armani Hough MD [address] [place] [address] [place] [address] [phone] 01/20/2020 Office Visit Neurology Lynn Hoover MD 200 [facility] [place] [address] [phone] Health Maintenance Due Date Last Done Comments [...] as of this encounter Visit Diagnoses Diagnosis Tray Server's cramp- Primary Other somatoform disorders Essential tremor Essential and other specified forms of tremor documented in this encounter Advance Directives Documents on File Type Date Recorded Patient Form Designer Expl anation Advanced Directive Advanced Directive Advanced Directive Advanced Directive Advanced Directive Advanced Directive Advanced Directive Advanced Directive 06/03/2016 8:20 AM Advanced Directive"
--- OUTSIDE RECORDS SUMMARY | 2023-02-20 21:46 | External Medical Summary | Summary of Care ---
Author Name Unknown Organization [place] [address] Care Team Providers Care Integration Specialist Name Role Phone Armani Hough MD Primary Care Provider + [phone] Reason for Visit * Reason Comments Re-Check Encounter Details Date Type Department Care Team Description 04/11/2019 Office Visit Internal Medicine [address] [address] Armani Hough MD [address] [place] [address] [phone] Primary osteoarthritis of both hips*; Need for [...] Taxonomy. Other chronic sinusitis 10/17/19 18 Power Supply Engineer's cramp 03/28/2019 documented as of this [...] sees Dr Hoover for the tremor and writer editor's cramp. 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 Current Outpatient Medications Medication [...] a day from [place] 90 Tab 3 TOPROL XL 50 MG PO TB24 One pill by mouth twice a day from [place] 90 Tab 3 He [facility] a lot of [facility]s [facility] and I don't know if we have [...] Office Visit Dermatology Nikia Canales MD [address] [place] [address] [phone] Sp, Proc Rm Derm [address] [place] [address] [phone] 10/11/2019 Office Visit Internal Medicine Armani Hough MD [address] [place] [address] [place] [address] [phone] 01/20/2020 Office Visit Neurology Lynn Hoover MD 200 [facility] [place] [address] [phone] 03/17/2020 Office Visit Dermatology Nikia Canales MD [address] [place] [address] [phone] Health Maintenance Due Date Last Done Comments [...] File Type Date Recorded Patient Early Childhood Educator Aide Expl 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
--- OUTSIDE RECORDS SUMMARY | 2023-02-20 21:46 | External Medical Summary | Summary of Care ---
Author Name Unknown Organization [place] [address] Care Team Providers Care Waste Paper Hammermill Operator Name Role Phone Armani Arreguin MD Primary Care Provider + [phone] Reason for Visit * Reason Comments Medication Refill Encounter Details Date Type Department Care Team Description 12/31/2018 Refill Internal Medicine [address] [address] Armani Arreguin MD [address] [place] [address] [phone] Esophageal reflux Allergies No Known Allergiesdocumented as of this encounter (statuses as of 12/31/2018) Medications Medication Sig Dispensed Refills Start Date [...] mouth daily. 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 With food. 60 Tab 3 11/05/2018 Active baclofen (LIORESAL) 10 MG Tablet TAKE 2 TABLETS BY MOUTH IN THE MORNING AND 1 TABLET IN THE EVENING 270 Tab 1 12/17/2018 Active raNITIdine HCl 150 MG CapsuleIndication s:Esophageal reflux Take 1 Cap by mouth at bedtime. 90 Cap 3 12/31/2018 Active RaNITidine HCl 150 MG CapsuleIndication s:Esophageal reflux TAKE 1 CAPSULE AT BEDTIME 90 Cap 1 06/06/2018 12/31/2018 Discontinued documented as of this encounter (statuses as of 12/31/2018) Active Problems Problem Noted Date Essential tremor [...] disorder Psoriasis Rosacea Hyperlipidemia LDL goal <130 Mixing Picker Tender's cramp documented as of this encounter (statuses as of 12/31/2018) Resolved Problems Problem Noted Date Resolved Date [...] as of this encounter (statuses as of 12/31/2018) Immunizations Name Administration Dates Next Due Pneumococcal [...] Telephone Encounter - Armani Arreguin MD - 12/31/2018 3:54 PM EDT Signed Prescriptions: Disp Refills raNITIdine HCl 150 MG Capsule 90 Cap 3 Sig: Take 1 Cap by mouthat bedtime.Authorizing Provider: ARMANI ARREGUIN * Telephone Encounter - Flavia Gustafson LPN - 12/31/2018 3:44 PM EDT Pending Prescriptions: Disp Refills raNITIdine HCl 150 MG Capsule 90 Cap 3 Sig: Take 1 Cap by mouth at bedtime. 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 GENERALIZED ANXIETY DIS F41.1 Major depressive disorder, single episode, moderate (HCC) F32.1 ADVANCE DIRECTIVE INFORMATION Raynaud's syndrome I73.00 Hyperlipidemia LDL goal <130 E78.5 Mixing Picker Tender's cramp F48.8 History of squamous cell carcinoma [...] 10/14/16 33 FINAL Hemoglobin AIC Results: HEMOGLOBIN, [id number] LAB(%) Carleen Dt/Tm Resulted Value Status 09/08/16 10/14/16 5.4 FINAL 05/12/14 06/12/14 5.8 FINAL documented in this encounter Plan of Treatment Upcoming Encounters Date Type Specialty Care Team Description 01/17/2019 [facility] [address] [phone] 03/15/2019 Office Visit [facility]at[facility] [address] [phone] 04/11/2019 Office Visit Internal Medicine Armani Arreguin MD [address] [place] [address] [place] [address] [phone] Health Maintenance Due Date Last Done Comments PNEUMOCOCCAL ADULT 65 YRS AND OVER (2 of 2 - PPSV23) 09/18/2018 09/18/2013, [...] Documents on File Type Date Recorded Patient Coastal And Estuary Specialist Expl anation Advanced Directive Advanced Directive Advanced Directive Advanced Directive Advanced Directive Advanced Directive Advanced Directive Advanced Directive 06/03/2016 8:20 AM Advanced Directive
--- OUTSIDE RECORDS SUMMARY | 2023-02-20 21:46 | External Medical Summary | Summary of Care ---
Author Name Unknown Organization [place] [address] Care Team Providers Care Business Development Executive Name Role Phone Armani Hough MD Primary Care Provider + [phone] Reason for Visit * Reason Comments Appointment Encounter Details Date Type Department Care Team Description 03/19/2019 Telephone [facility]erm[facility]ology [facility] [address] [place] [address] Nikia Canales MD [address] [place] [address] [phone] Appointment Allergies No Known Allergiesdocumented as of this encounter (statuses as of 03/19/2019) Medications Medication Sig Dispensed Refills Start Date [...] 1 12/17/2018 Active omeprazole (PRILOSEC) 20 MG CPDRIndications:Esop hageal reflux Take 1 Cap by mouth daily. 90 Cap 1 02/01/2019 Active famotidine (PEPCID) 20 MG TabletIndications:Ga stroesophageal reflux disease with esophagitis Take 1 Tab by mouth daily. 90 Tab 1 03/13/2019 Active documented as of this encounter (statuses as of 03/19/2019) Active Problems Problem Noted Date Essential tremor [...] disorder Psoriasis Rosacea Hyperlipidemia LDL goal <130 Canteen Operator's cramp documented as of this encounter (statuses as of 03/19/2019) Resolved Problems Problem Noted Date Resolved Date [...] as of this encounter (statuses as of 03/19/2019) Immunizations Name Administration Dates Next Due Pneumococcal [...] encounter Miscellaneous Notes * Telephone Encounter - Alecia Hall OSA - 03/19/2019 11:13 AM EST Called patient and scheduled procedure. * Telephone Encounter - Alecia Hall OSA - 03/19/2019 11:07 AM EST ----- Message from Nikia Canales MD sent at 03/18/2019 10:11 PM EST ----- Pt sent MYG with results. Please schedule 45min surgical appt for excision of BCC on the central lower back. A. Skin, left forearm: Benign psoriasiform keratosis (see comment). Comment: As a solitary lesion this represents a benign inflamed keratosis. The histologic features are indistinguishable from psoriasis vulgaris, which could be considered in the appropriate clinical setting. B. Skin, central lower back: Basal cell carcinoma, nodular and infiltrative types, extending to thedeep inked edge. documented in this encounter Plan of Treatment Upcoming Encounters Date Type Specialty Care Team Description 04/11/2019 Office Visit Internal Medicine Armani Hough MD [address] [place] [address] [place] [address] [phone] 04/25/2019 Office Visit Dermatology Nikia Canales MD 200 [facility] [place] [address] [phone] Sp, Proc Rm Derm 200 [facility] [place] [address] [phone] 01/20/2020 Office Visit Neurology Lynn Hoover MD 200 [place] [address] [phone] 03/17/2020 Office Visit Dermatology Nikia Canales MD 200 [place] [address] [phone] Health Maintenance Due Date Last Done Comments [...] Documents on File Type Date Recorded Patient Mercantile Reporter Expl 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
--- OUTSIDE RECORDS SUMMARY | 2023-02-20 21:46 | External Medical Summary | Summary of Care ---
Author Name Unknown Organization [place] [address] Care Team Providers Care Director Of Dance Name Role Phone Armani Hough MD Primary Care Provider + [phone] Reason for Visit * Reason Comments Procedure Encounter Details Date Type Department Care Team Description 04/25/2019 Office Visit Dermatology [facility] [address] [place], [place] [id number] Nikia Canales MD 200 [place] [address] [phone] Sp, Proc Rm Derm [address] [place], [place] [id number] Basal cell carcinoma (BCC) of back* Allergies No Known Allergiesdocumented as of this encounter (statuses as of 04/25/2019) Medications Medication Sig Dispensed Refills Start Date End Date Status LISINOPRIL 40 MG PO TABS One pill by mouth once a day from [place] 90 Tab 3 12/13/2011 Active TOPROL XL 50 MG PO TB24 One pill by mouth twice a day from [place] 90 Tab 3 12/13/2011 Active VIAGRA 100 [...] as of this encounter (statuses as of 04/25/2019) Active Problems Problem Noted Date Essential tremor [...] as of this encounter (statuses as of 04/25/2019) Resolved Problems Problem Noted Date Resolved Date [...] Lipid Taxonomy. Other chronic sinusitis 10/17/19 18 Last Remodeler Repairer's cramp 03/28/2019 documented as of this encounter (statuses as of 04/25/2019) Immunizations Name Administration Dates Next Due Pneumococcal [...] Sign Reading Time Taken Comments Blood Pressure 120/90 04/25/2019 11:24 AM EST Pulse 64 04/25/2019 11:24 AM EST Temperature 35.8 C (96.5 F) 04/25/2019 11:[address] Respiratory Rate - - [...] * Patient Instructions* Nikia Canales MD - 04/25/2019 12:19 PM EST Skin Surgery Wound Care Instructions CHANGE [...] about the healing wound, please call at: [place] office or [facility] office documented in this encounter Progress Notes * Nikia Canales MD - 04/25/2019 11:45 AM EST HPI: Cuong Li is a 63 year old male. Pt returns today for treatment of BCC on the central lower back. B. Skin, central lower back: Basal cell carcinoma, nodular and infiltrative types, extending to thedeep inked edge PHM: Patient Active Problem List Diagnosis Code Primary [...] THE MORNING AND 1 TABLET IN THE [id number] Tab 1 sertraline (ZOLOFT) 25 MG Tablet [...] a day from [place] 90 Tab 3 Review of patient's allergies indicates: No Known Allergies Objective: General: alert, healthy and no distress Skin : 1. 0.8cmPink biopsy site on the central lower back. ASSESSMENT/PLAN: 1. BCC, nodular/infiltrative type-excision PREOPERATIVE DIAGNOSIS: BCC, nodular/infiltrative POSTOPERATIVE DIAGNOSIS: pending LOCATION: Central lower back PREOPERATIVE LESION SIZE: 0.8cm OPERATION PERFORMED: Elliptical excision of above with intermediate layered closure. EXCISIONAL DEFECT SIZE (INCLUDING MARGINS): 1.4cm FINAL SUTURE LINE LENGTH: 4.5cm SURGEON: Nikia Canales MD PREOPERATIVE MEDICATIONS: none POSTOPERATIVE MEDICATIONS: none INDICATIONS: 63 y/o M presents for re-excision of BCC. OPERATION: The patient was taken to the surgical suite where the benefits and risks of the procedure were explained. After time was given for questions, a signed consent was obtained. The patient wasthen placed on the operating table in the prone position. The proposed excision area was prepped with an antiseptic solution and draped in the usual sterile fashion. 0.5% lidocaine with epinephrine was infiltrated until adequate anesthesia was obtained. Approximately 6 cc were given. A #15 blade was used to excise the lesion with 3 mm margins in a fusiform shape down to the deep subcutaneous fat.The excision was then completed within the deep subcutaneous plane using the same blade and a pair of small curved Iris scissors. The specimen was oriented by placing a suture in its superior margin,placed in a formalin-filled container labeled with the patient's identifying data and sent to pathology for examination. The wound edges were undermined widely with a combination of sharp and blunt dissection in the superficial subcutaneous plane and hemostasis was achieved with spot electrocauteryand suture ligation as needed. The long axis of the closure was oriented so as to parallel the relaxed skin tension lines as much as possible to minimize any pull or distortion on nearby anatomic structures. The defect was then closed in a layered fashion consisting of 3-0vicryl interrupted suturesin the deep subcutaneous plane followed by separate closure of the superficial subcutaneous tissue and skin with 4-0prolene for a final suture line length of 4.5cm. Layered closure was required to eliminate space, relieve tension, prevent deformity, and approximate the edges of the defect which extended to the deep subcutaneous tissues. A pressure dressing was placed with vaseline ointment, non-stick pad, gauze, and paper tape. Estimated blood loss was less than 10 ml and there were no complications. The patient received both written and verbal wound care instructions and left the Dermatology Clinic in good condition. The patient is to return to clinic in 10-14 days for suture removal, but should contact us immediately if any problems develop in the interim Follow up in 10-14 day(s). Nikia Canales MD documented in this encounter Nursing Notes * Christine Lott RN - 04/25/2019 11:23 AM EST Patient identified by name and date of . Do you have any concerns about pain management for today's visit? No Living Will or Advance Directive for Health Care as noted on problem list. [facility] is a way you can talk to your provider online through e-mail. Would you like to sign up? I can activate it for you? ALREADY ACTIVE Pt here today for excision of BCC central lower back Pt is not allergic to any numbing medication or betadine. Does not have a pacemaker/defibrillator or other hardware in body Does not require any antibiotics prior to procedures. Procedure explained. Questions answered. Consent reviewed and signed. documented in this encounter Plan of Treatment Upcoming Encounters Date Type Specialty Care Team Description 05/09/2019 Nurse Only Dermatology Sp, Nurse Dermatology 200 [facility] [place] [address] [phone] 10/11/2019 Office Visit Internal Medicine Armani Hough MD [address] [place] [address] [place] [address] [phone] 01/20/2020 Office Visit Neurology Lynn Hoover MD [address] [place] [address] [phone] 03/17/2020 Office Visit Dermatology Nikia Canales MD [address] [place] [address] [phone] Scheduled Orders Name Type Priority Associated Diagnoses Orde r Schedule RMV MALG LSN TRK/ARM/LG 1.1-2C Procedures Routine Basal cell carcinoma (BCC) of back Ordered: 04/25/2019 WND REPR,LAYERED,SCALP/AMILCAR NK/EXT,2.6-7.5CM Procedures Routine Basal cell carcinoma (BCC) of back Ordered: 04/25/2019 SURGICAL PATHOLOGY Pathology Routine Basal cell carcinoma (BCC) of back Ordered: 04/25/2019 Health Maintenance Due Date Last Done Comments [...] as of this encounter Visit Diagnoses Diagnosis Basal cell carcinoma (BCC) of back- Primary documented in this encounter Advance Directives Documents on File Type Date Recorded Patient Field Machinist Expl 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
--- OUTSIDE RECORDS SUMMARY | 2023-02-20 21:47 | External Medical Summary | Summary of Care ---
Author Name Unknown Organization [place] [address] Care Team Providers Care Eligibility Manager Name Role Phone Armani Hough MD Primary Care Provider + [phone] Reason for Visit * Reason Comments eRx-Medication Refill Encounter Details Date Type Department Care Team Description 05/18/2018 Refill Neurology [facility] [address] [place] [address] Reinaldo Hoover MD 200 [place] [address] [phone] Allergies No Known Allergiesas of this encounter Medications Medication Sig Dispensed Refills Start Date End Date Status LISINOPRIL 40 MG PO TABS One pill by mouth once a day from CT 90 Tab 3 12/13/2011 Active TOPROL XL 50 MG PO TB24 One pill by mouth twice a day from CT 90 Tab 3 12/13/2011 Active VIAGRA 100 [...] day. 1 twice daily 0 05/26/2016 Active celecoxib (CELEBREX) 200 MG CapsuleIndication s:C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 for pain 30 Cap 5 03/13/2017 Active traZODone (DESYREL) 100 MG TabletIndications :Persistent insomnia TAKE 1/2 TABLET DAILY AT BEDTIME 90 Tab 1 04/17/2017 Active RaNITidine HCl 150 MG CapsuleIndication s:Esophageal reflux TAKE 1 CAPSULE AT BEDTIME 90 Cap 1 12/21/2017 Active Ketoconazole 2 % cream Apply to rash on the face and ears 2-3 x's per week. 15 g 2 03/15/2018 Active venlafaxine (EFFEXOR) 37.5 MG Tablet 1 tab twice a day 0 04/04/2018 Active omeprazole (PRILOSEC) 20 MG CPDRIndications:E sophageal reflux TAKE 1 CAP BY MOUTH DAILY. 90 Cap 1 05/18/2018 Active baclofen (LIORESAL) 10 MG Tablet TAKE 2 TABLETS BY MOUTH IN THE MORNING AND 1 TABLET IN THE EVENING 270 Tab 1 05/18/2018 Active baclofen (LIORESAL) 10 MG Tablet 2 in the morning 1 in the evening 270 Tab 1 01/12/2018 05/18/2018 Discontinued as of this encounter Active Problems Problem Noted Date Essential tremor [...] ANXIETY DIS 12/03/2003 IMPOTENCE, ORGANIC ORIGN 08/01/2003 Esophageal reflux 10/17/2001 Essential hypertension with goal blood p ressure less than 140/90 Tobacco use disorder Psoriasis Rosacea Hyperlipidemia LDL goal <130 Wig Stylist's cramp as of this encounter Resolved Problems Problem Noted Date Resolved Date Benign neoplasm of colon 10/15/2010 017 Overview: polyp x1, path shows adenomatous tissue repeat in 5 years Mixed dyslipidemia 04/28/2009 04/28/2009 Dyslipidemia, goal to be determined 04/27/2009 04/28/2009 Overview: Per Lipid Taxonomy. Essential and other specified forms of tremor 12/21/2012 PURE HYPERCHOLESTEROLEM 04/27/20 09 Overview: Per Lipid Taxonomy. Other chronic sinusitis 10/17/19 18 as of this encounter Immunizations Name Dates Previously Given Next Due Pneumococcal Polysaccharide PPV23 (Pneumovax) 09/18/2013,12/18/2008 Seasonal Influenza, Quadriva lent, No Preserve, 6 Mons & Above, IM 02/08/2018 Seasonal Influenza, Quadriva lent, No Preserve, IM 02/09/2017,01/15/2016,03/16/2015 Seasonal Influenza, Trivalen t, with Preserve, 3yr & Above, Split 01/07/2014,01/24/2013,02/16/2012,,01/06/2010,05/08/2007 TD - Tetanus/Diptheria (ADULT) 07/06/2006 TDAP (age 10 and older)(Boostrix) 12/13/2011 as of this encounter Social History Tobacco [...] file Travel History Travel Start Travel End as of this encounter Functional Status Functional [...] (5 years old or older Yes 05/26/2015 as of this encounter Miscellaneous Notes * Telephone Encounter - Reinaldo Hoover MD - 05/18/2018 12:04 PM EST Signed Prescriptions: Disp Refills baclofen (LIORESAL) 10 MG Tablet 270 Tab1 Sig: TAKE 2 TABLETS BYMOUTH IN THE MORNING AND 1 TABLET IN THE EVENINGAuthorizing Provider: REINALDO HOOVER * Telephone Encounter - Kiana Willis LPN - 05/18/2018 11:29 AM EST Pending Prescriptions: Disp Refills baclofen (LIORESAL) 10 MG Tablet [Pharmac*270 Tab1 Sig: TAKE 2 TABLETS BY MOUTH IN THE MORNING AND 1 TABLET IN THE EVENING * Telephone Encounter - Sharron Desouza LPN - 05/18/2018 10:07 AM EST Pending Prescriptions: Disp Refills baclofen (LIORESAL) 10 MG Tablet [Pharmac*270 Tab1 Sig: TAKE 2 TABLETS BY MOUTH IN THE MORNING AND 1 TABLET IN THE EVENING * Telephone Encounter - Sharron Desouza, LOG YARD DERRICK OPERATOR - 05/18/2018 10:07 AM EST Pending Prescriptions: Disp Refills baclofen (LIORESAL) 10 MG Tablet [Pharmac*270 Tab1 Sig: TAKE 2 TABLETS BY MOUTH IN THE MORNING AND 1 TABLET IN THE EVENING Last Office Visit: 01/12/2018 Next Office Visit: 01/17/2019 Scheduled Provider(s): Reinaldo Hoover MD Last date the medication was ordered: 01/12/18 Patient Active Problem List Diagnosis Code Essential hypertension with goal blood pressure less than 140/90 I10 Tobacco use disorder F17.200 Esophageal reflux K21.9 Psoriasis L40.9 Rosacea L71.9 IMPOTENCE, 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 GENERALIZED ANXIETY DIS F41.1 Major depressive disorder, single episode, moderate (HCC) F32.1 ADVANCE DIRECTIVE INFORMATION Raynaud's syndrome I73.00 Hyperlipidemia LDL goal <130 E78.5 Wig Stylist's cramp F48.8 History of squamous cell carcinoma Z85.89 History of basal cell carcinoma Z85.828 Persistent insomnia G47.00 Rupture of hamstring tendon S76.319A Essential tremor G25.0 Labs: CREATININE-OUTSIDE LAB(MG/DL) Carleen Dt/Tm Resulted Value Status 09/11/17 09/27/17 1.0 FINAL POTASSIUM-OUTSIDE LAB(MMOL/L) Carleen Dt/Tm Resulted Value Status 09/11/17 09/27/17 4.7 FINAL TSH(uIU/mL) Carleen Dt/Tm Resulted Value Status 07/14/06 9:11A 07/14/06 1.90 FINAL LDL (CALCULATED)-OUTSIDE LAB(MG/DL) Carleen Dt/Tm Resulted Value Status 09/11/17 09/27/17 117* FINAL 09/08/16 10/14/16 102* FINAL ALT-OUTSIDE LAB(IU/L) Carleen Dt/Tm Resulted Value Status 09/08/16 10/14/16 33 FINAL Hemoglobin AIC Results: HEMOGLOBIN, [id number] LAB(%) Carleen Dt/Tm Resulted Value Status 09/08/16 10/14/16 5.4 FINAL 05/12/14 06/12/14 5.8 FINAL in this encounter Plan of Treatment Upcoming Encounters Date Type Specialty Care Team Description 01/17/2019 Office Visit Neurology Reinaldo Hoover MD 200 [place] [address] [phone] 03/15/2019 Office Visit Dermatology Nikia Canales MD 200 [facility] [place] [address] [phone] Health Maintenance Due Date Last Done Comments *DEPRESSION SCREENING, ANIA Chase FOR PTS 18 AND OVER 04/19/2018 COLONOSCOPY-EVERY 3 YRS AGES 18-100 06/03/2019 06/03/2016, 06/03/2016, 10/15/2010 DIABETES SCREEN EVERY 3 YRS- AGE 45 AND ABOVE 09/11/2020 09/11/2017, 09/08/2016, 06/01/2015, Additional history exists DTaP,Tdap,and Td Vaccines (2 - Td) 12/12/2021 12/13/2011, 07/06/2006 LIPID SCREEN EVERY 5 YRS-MEN AGE 35-75 09/11/2022 09/11/2017, 09/08/2016, 06/01/2015, Additional history exists Influenza Vaccine (FLU shot) Completed 08/2017, 02/14/2017, 02/09/2017, Additional history exists as of this encounter Implants Not on fileas of this encounter Advance Directives Patient has advance care planning documents on file. For more information, please contact: [place] [phone]
--- OUTSIDE RECORDS SUMMARY | 2023-02-20 21:47 | External Medical Summary | Summary of Care ---
Author Name Unknown Organization [place] [address] Care Team Providers Care Mammal Control Agent Name Role Phone Armani Arreguin MD Primary Care Provider Unava ilable Reason for Visit * Reason Comments [facility] Encounter Details Date Type Department Care Team Description 06/27/2018 Refill Internal Medicine [address] [address] Armani Arreguin MD [address] [place] [address] [place] [address] [phone] Chronic bilateral low back pain with left-sided sciatica Allergies No Known Allergiesdocumented as of this encounter (statuses as of 06/27/2018) Medications Medication Sig Dispensed Refills Start Date [...] THE EVENING 270 Tab 1 05/18/2018 Active Hydrocortisone 2.5 % ointment Apply to rash on the face twice daily x 3-4 days, then 2-3 x's per week. 15 g 0 05/22/2018 Active RaNITidine HCl 150 MG CapsuleIndication s:Esophageal reflux TAKE 1 CAPSULE AT BEDTIME 90 Cap 1 06/06/2018 Active celecoxib (CELEBREX) 200 MG CapsuleIndication s:C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 for pain 30 Cap 5 06/27/2018 Active celecoxib (CELEBREX) 200 MG CapsuleIndication s:C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 for pain 30 Cap 5 03/13/2017 06/27/2018 Discontinued documented as of this encounter (statuses as of 06/27/2018) Active Problems Problem Noted Date Essential tremor [...] disorder Psoriasis Rosacea Hyperlipidemia LDL goal <130 Measurement Technician's cramp documented as of this encounter (statuses as of 06/27/2018) Resolved Problems Problem Noted Date Resolved Date [...] as of this encounter (statuses as of 06/27/2018) Immunizations Name Dates Previously Given Next Due [...] Telephone Encounter - Armani Arreguin MD - 06/27/2018 1:32 PM EST Signed Prescriptions: Disp Refills celecoxib (CELEBREX) 200 MG Capsule 30 Cap 5 Sig: Take 1 Cap by mouth daily. for pain Authorizing Provider: ARMANI ARREGUIN * Telephone Encounter - Vielka Eller LPN - 06/27/2018 12:20 PM EST Pending Prescriptions: Disp Refills celecoxib (CELEBREX) 200 MG Capsule 30 Cap 5 Sig: Take 1 Cap by mouth daily. for pain Last Office Visit: 04/04/2018 Next Office Visit: No Future Appointments Last date the medication was ordered: 03/13/17 Patient Active Problem List Diagnosis Code Essential hypertension with goal blood pressure less than 140/90 I10 Tobacco use disorder F17.200 Esophageal reflux K21.9 Psoriasis L40.9 Rosacea L71.9 IMPOTENCE, 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 GENERALIZED ANXIETY DIS F41.1 Major depressive disorder, single episode, moderate (HCC) F32.1 ADVANCE DIRECTIVE INFORMATION Raynaud's syndrome I73.00 Hyperlipidemia LDL goal <130 E78.5 Measurement Technician's cramp F48.8 History of squamous cell carcinoma [...] 10/14/16 33 FINAL Hemoglobin AIC Results: HEMOGLOBIN, [id number] LAB(%) Carleen Dt/Tm Resulted Value Status 09/08/16 10/14/16 5.4 FINAL 05/12/14 06/12/14 5.8 FINAL * Telephone Encounter - Vielka Eller LPN - 06/27/2018 12:20 PM EST Message from Watly BVer: ----- Message from Provider, Melissa sent at 06/27/2018 10:51 AM EST ----- Cuong Li would like a refill of the following medications: celecoxib (CELEBREX) 200 MG Capsule [Armani Arreguin MD] Preferred pharmacy: [id number] documented in this encounter Plan of Treatment Upcoming Encounters Date Type Specialty Care Team Description 01/17/2019 Office Visit Neurology Lynn Hoover MD [address] [place] [address] [phone] 03/15/2019 Office Visit Dermatology Nikia Canales MD [address] [place] [address] [phone] Health Maintenance Due Date Last Done Comments *DEPRESSION SCREENING, ANNUAL FOR PTS 18 AND OVER 04/19/2018 COLONOSCOPY-EVERY 3 YRS AGES 18-100 06/03/2019 06/03/2016, 06/03/2016, 10/15/2010 DIABETES SCREEN EVERY 3 YRS-AGE 45 AND ABOVE 09/11/2020 09/11/2017, 09/08/2016, 06/01/2015, Additional history exists DTaP,Tdap,and Td Vaccines (2 - Td) 12/12/2021 12/13/2011, 07/06/2006 LIPID SCREEN EVERY 5 YRS-MEN AGE 35-75 09/11/2022 09/11/2017, 09/08/2016, 06/01/2015, Additional history exists Influenza Vaccine (FLU shot) Completed 08/2017, 02/14/2017, 02/09/2017, Additional history exists MENINGOCOCCAL (MENACTRA) Aged Out No longer eligible based on patient's age to complete this topic documented as of this encounter Implants Not on filedocumented as of this encounter Visit Diagnoses Diagnosis Chronic bilateral low back pain with left-sided sciatica documented in this encounter Advance Directives Patient has advance care planning documents on file. For more information, please contact: [place] [phone]
--- OUTSIDE RECORDS SUMMARY | 2023-02-20 21:47 | External Medical Summary | Summary of Care ---
Author Name Unknown Organization [place] [address] Care Team Providers Care Air And Water Filler Name Role Phone Armani Hough MD Primary Care Provider + [phone] Reason for Visit * Reason Comments Cough Encounter Details Date Type Department Care Team Description 04/04/2018 Office Visit Internal Medicine [address] [address] Padmini Francisco PA-C [address] [place] [address] [place] [id number] LRTI (lower respiratory tract infection)*; Hip pain, bilateral Allergies No Known Allergiesas of this encounter [...] 04/26/2013 Active triamcinolone acetonide (ARISTOCORT) 0.1 % creamIndications:O ther psoriasis Apply topically to affected area 2 times a day as needed for Itching. To affected area of body. 80 g 3 08/26/2014 Active atorvaSTATin (LIPITOR) 40 MG Tablet daily 30 Tab 5 10/02/2014 Active tacrolimus (PROTOPIC) 0.1 % ointmentIndication s:Other [...] 0 05/26/2016 Active celecoxib (CELEBREX) 200 MG CapsuleIndications :C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 for pain 30 Cap 5 03/13/2017 Active traZODone (DESYREL) 100 MG TabletIndications: Persistent insomnia TAKE 1/2 TABLET DAILY AT BEDTIME 90 Tab 1 04/17/2017 Active RaNITidine HCl 150 MG CapsuleIndications :Esophageal reflux TAKE 1 CAPSULE AT BEDTIME 90 Cap 1 12/21/2017 Active baclofen (LIORESAL) 10 MG Tablet 2 in the morning 1 in the evening 270 Tab 1 01/12/2018 Active omeprazole (PRILOSEC) 20 MG CPDRIndications:Es ophageal reflux TAKE 1 CAPSULE ONCE DAILY 1 HOUR BEFORE THE FIRST MEAL OF THE DAY 90 Cap 1 02/05/2018 Active Ketoconazole 2 % cream Apply to rash on the face and ears 2-3 x's per week. 15 g 2 03/15/2018 Active venlafaxine (EFFEXOR) 37.5 MG Tablet 1 tab twice a day 0 04/04/2018 Active azithromycin (ZITHROMAX) 250 MG TabletIndications: LRTI (lower respiratory tract infection) Take 2 tabs by mouth on the first day, then 1 tab daily on days two through five 6 Tab 0 04/04/2018 04/09/2018 Active PredniSONE (DELTASONE) 20 MG TabletIndications: LRTI (lower respiratory tract infection) Take 2 Tabs by mouth daily for 5 days. 10 Tab 0 04/04/2018 04/09/2018 Active venlafaxine (EFFEXOR) 75 MG Tablet Take 75 mg by mouth daily. 1 bedtime 0 10/28/2016 04/04/2018 Discontinued traMADol (ULTRAM) 50 MG TabletIndications: Pain of right lower extremity Take 1 Tab by mouth every 6 hours as needed for Pain. 30 Tab 0 05/11/2017 04/04/2018 Discontinued as of this encounter Active Problems [...] disorder Psoriasis Rosacea Hyperlipidemia LDL goal <130 Head Packager's cramp as of this encounter Resolved Problems [...] Start Travel End as of this encounter Last Filed Vital Signs Vital Sign Reading Time Taken Blood Pressure 120/68 04/04/2018 12:52 PM EST Pulse 68 04/04/2018 12:52 PM EST Temperature 36.6 C (97.8 F) 04/04/2018 1 2:52 PM EST Respiratory Rate 16 04/04/2018 12:5 2 PM EST Oxygen Saturation - - Inhaled Oxygen Concentration - - Weight 98 kg (216 lb) 04/04/2018 12:52 PM EST Height - - Body Mass Index 31.9 04/04/2018 12:52 PM EST in this encounter Functional Status Functional Status [...] older Yes 05/26/2015 as of this encounter Progress Notes * Padmini Francisco PA-C - 04/04/2018 1:05 PM EST Subjective Cuong Li is a 62 year old male. Chief Complaint Patient presents with Cough HPI: Here today with c/o cough x 10 days. Gets coughing fits when he coughs so hard he feels he might black out. Sometimes he coughs out thick, yellow chunky sputum. Has some shortness of breath withwalking. No wheezing. No fever, chills, sweats. No headache, nasal congestion, sinus pressure, ear pain, or sore throat. Sometimes his nose is runny. No smoking. No asthma or COPD. Has not tried any o tc medications. Also notes bilateral hip pain, on the sides. Had evaluation about a year ago, xrays and MRI. Was told he had bursitis. Tried celebrex which did not help. Describes the pain as burning, not always present, feels pain when he pushes on his right hip. Saw Dr. Mari about 9 months ago. No radiating pain, paresthesia, or weakness. PMH: Patient Active Problem List Diagnosis Code Essential hypertension with goal blood pressure less than 140/90 I10 Tobacco use disorder F17.200 Esophageal reflux K21.9 Psoriasis L40.9 Rosacea L71.9 IMPOTENCE, 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 GENERALIZED ANXIETY DIS F41.1 Major depressive disorder, single episode, moderate (HCC) F32.1 ADVANCE DIRECTIVE INFORMATION Raynaud's syndrome I73.00 Hyperlipidemia LDL goal <130 E78.5 Head Packager's cramp F48.8 History of squamous cell carcinoma Z85.89 History of basal cell carcinoma Z85.828 Persistent insomnia G47.00 Rupture of hamstring tendon S76.319A Essential tremor G25.0 Current Outpatient Medications Medication Sig Dispense Refill azithromycin (ZITHROMAX) 250 MG Tablet Take 2 tabs by mouth on the first day, then 1 tab daily on days two through five 6 Tab 0 PredniSONE (DELTASONE) 20 MG Tablet Take 2 Tabs by mouth daily for 5 days. 10 Tab 0 venlafaxine (EFFEXOR) 37.5 MG Tablet 1 tab twice a day Ketoconazole 2 % cream Apply to rash on the face and ears 2-3 x's per week. 15 g 2 omeprazole (PRILOSEC) 20 MG CPDR TAKE 1 CAPSULE ONCE DAILY 1 HOUR BEFORE THE FIRST MEAL OF THE DAY 90 Cap 1 baclofen (LIORESAL) 10 MG Tablet 2 in the morning 1 in the evening 270 Tab 1 RaNITidine HCl 150 MG Capsule TAKE 1 CAPSULE AT BEDTIME 90 Cap 1 traZODone (DESYREL) 100 MG Tablet TAKE 1/2 TABLET DAILY AT BEDTIME 90 Tab 1 celecoxib (CELEBREX) 200 MG Capsule Take 1 Cap by mouth daily. for pain 30 Cap 5 BuPROPion HCl ER, SR, 200 MG [...] a day from CA 90 Tab 3 TOPROL XL 50 MG PO TB24 One pill by mouth twice a day from CA 90 Tab 3 Review of patient's allergies indicates: No Known Allergies Review of Systems Constitutional: Negative. HENT: Positive for rhinorrhea. Negative for congestion, ear discharge, ear pain, nosebleeds, postnasal drip, sinus pressure, sinus pain, sneezing, sore throat and tinnitus. Eyes: Negative. Respiratory: Positive for cough and shortness of breath. Negative for chest tightness and wheezing. Cardiovascular: Negative. Neurological: Negative. Objective BP 120/68 | Pulse 68 | Temp (Src) 97.8 (Tympanic) | Resp 16 | Wt 216 lbs (97.977kg) | BMI 31.9 kg/m | BSA 2.18 m Physical Exam Constitutional: He appears well-developed and well-nourished. No distress. HENT: Head: Normocephalic and atraumatic. Right Ear: External ear normal. Nose: Nose normal. Mouth/Throat: Oropharynx is clear and moist. No oropharyngeal exudate. Left ear small amount cerumen of left auditory canal, attempted to remove by curette, pt unable to tolerate procedure, cerumen not removed Eyes: Conjunctivae and EOM are normal. Pupils are equal, round, and reactive to light. Right eye exhibits no discharge. Left eye exhibits no discharge. Neck: Normal range of motion. Neck supple. No thyromegaly present. Cardiovascular: Normal rate, regular rhythm and normal heart sounds. Exam reveals no gallop and no friction rub. No murmur heard. Pulmonary/Chest: Effort normal. No respiratory distress. He has no wheezes. He has no rales. Prolonged expiration throughout all lung walker, coarse Lymphadenopathy: He has no cervical adenopathy. Skin: He is not diaphoretic. Nursing note and vitals reviewed. ASSESSMENT/PLAN: J22 Lrti (lower respiratory tract infection) (primary encounter diagnosis) Plan: Medications: 1. Azithromycin 250 mg po tabs Sig:Take 2 tabs by mouth on the first day, then 1 tab daily on days two through five 2. Prednisone 20 mg po tabs Sig:Take 2 tabs by mouth daily for 5 days. M25.551, M25.552 Hip pain, bilateral - try prednisone course; if symptoms persist notify office, would refer back to ortho for possible injections Follow up: Return if symptoms worsen or fail to improve. Padmini Francisco PA-C in this encounter Nursing Notes * Mitzy Smith LPN - 04/04/2018 12:54 PM EST Cough x 10 days with chunks of yellow mucous in this encounter Plan of Treatment Upcoming Encounters Date Type Specialty Care Team Description 04/17/2018 Office Visit Internal Medicine Armani Hough MD [address] [place] [address] [place] [address] [phone] 01/17/2019 Office Visit Neurology Lynn Hoover MD [address] [facility] [place] [address] [phone] 03/15/2019 Office Visit Dermatology Nikia Canales MD [address] [facility] [place] [address] [phone] Health Maintenance Due Date Last Done Comments COLONOSCOPY-EVERY 3 YRS AGES 18-100 06/03/2019 06/03/2016, [...] Implants Not on fileas of this encounter Visit Diagnoses Diagnosis LRTI (lower respiratory tract infection)- Primary Other diseases of respiratory system, not elsewhere classified Hip pain, bilateral Pain in joint, pelvic region and thigh in this encounter Advance Directives Patient has advance care planning documents on file. For more information, please contact: [place] [address]"
--- OUTSIDE RECORDS SUMMARY | 2023-02-20 21:47 | External Medical Summary | Summary of Care ---
Author Name Unknown Organization [place] [address] Phone Care Team Providers Care Stone Lathe Operator Name Role Phone Armani Hough MD Primary Care Provider + [phone] Reason for Visit * Reason Comments MEDICATION ADMINISTRATION Flu and/or Pne umo Inj Encounter Details Date Type Department Care Team Description 02/08/2018 Immunization/In jection Ancillary [address] [place] [address] [place] [address] [place] [address] [phone] Need for prophylactic vaccination and inoculation against influenza* Allergies No Known Allergiesas of this encounter Medications Prescription Sig. Disp. Refills Start Date End Date Status LISINOPRIL 40 MG PO TABS One pill by mouth once a day from [place] 90 Tab 3 12/13/2011 Active TOPROL XL 50 MG PO TB24 One pill by mouth twice a day from [place] 90 Tab 3 12/13/2011 Active VIAGRA 100 [...] 5 10/02/2014 Active tacrolimus (PROTOPIC) 0.1 % ointmentIndications:Ot her psoriasis Apply to psoriasis on the genitals twice daily as needed for flares. 60 g 2 12/28/2015 Active Cholecalciferol (VITAMIN D) 2000 UNITS Tablet Take 2,000 Units by mouth daily. Active BuPROPion HCl ER, SR, 200 MG TB12 Take 200 mg by mouth 2 times a day. 1 twice daily 0 05/26/2016 Active venlafaxine (EFFEXOR) 75 MG Tablet Take 75 mg by mouth daily. 1 bedtime 0 10/28/2016 Active celecoxib (CELEBREX) 200 MG CapsuleIndications:Chr onic bilateral low back pain with left-sided sciatica Take 1 Cap by mouth daily. for pain 30 Cap 5 03/13/2017 Active traZODone (DESYREL) 100 MG TabletIndications:Pers istent insomnia TAKE 1/2 TABLET DAILY AT BEDTIME 90 Tab 1 04/17/2017 Active traMADol (ULTRAM) 50 MG TabletIndications:Pain of right lower extremity Take 1 Tab by mouth every 6 hours as needed for Pain. 30 Tab 0 05/11/2017 Active RaNITidine HCl 150 MG CapsuleIndications:Eso phageal reflux TAKE 1 CAPSULE AT BEDTIME 90 Cap 1 12/21/2017 Active baclofen (LIORESAL) 10 MG Tablet 2 in the morning 1 in the evening 270 Tab 1 01/12/2018 Active omeprazole (PRILOSEC) 20 MG CPDRIndications:Esopha geal reflux TAKE 1 CAPSULE ONCE DAILY 1 HOUR BEFORE THE FIRST MEAL OF THE DAY 90 Cap 1 02/05/2018 Active as of this encounter Active Problems Problem [...] Major depressive disorder, single episod e, moderate (HCC) 02/23/2004 GENERALIZED ANXIETY DIS 12/03/2003 IMPOTENCE, ORGANIC ORIGN 08/01/2003 Esophageal reflux 10/17/2001 Essential hypertension with goal blood p ressure less than 140/90 Tobacco use disorder Psoriasis Rosacea Hyperlipidemia LDL goal <130 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 No Are you experiencing any cold symptoms or fever? No Have you had Guillain-[place] Syndrome (an illness that causes paralysis)? No Have you had the flu shot in the past? YES Have you ever had a reaction to the flu shot? No Francisca Molina RN, 02/08/2018 8:34 AM Immunization Administration Documentation Time Out Procedure Performed: Yes Patient Identified (Ask Name/Date of ): Yes Does the patient have a fever greater than 101 degrees today? No Patient allergic to latex? No VFC Stock: No Immunization(s) verified: Yes, Immunization Name: Flu, VIS Sheet(s) given: Yes Verified Side and Site: Yes Verified Shot(s) with Parent(s)/Patient: Yes in this encounter Plan of Treatment Upcoming Encounters Date Type Specialty Care Team Description 02/08/2018 Immunization/Inj ection [facility] [address] [place] [address] [phone] Need for prophylactic vaccination and inoculation against influenza* 03/08/2018 Office Visit Dermatology Kristy Castellanos MD [address] [place] [facility] [address] [phone] 04/17/2018 Office Visit Internal Medicine Armani Hough MD [address] [place] [address] [place] [address] [phone] 01/17/2019 Office Visit Neurology Lynn Hoover MD [address] [place] [address] [phone] Health Maintenance Due Date Last Done Comments Influenza Vaccine (FLU shot) (#1) 2017 02/09/2017, 01/15/2016, 03/16/2015, Additional history exists COLONOSCOPY-EVERY 3 YRS AGES 18-100 06/03/2019 06/03/2016, 06/03/2016, 10/15/2010 DIABETES SCREEN EVERY 3 YRS- AGE 45 AND ABOVE 09/11/2020 09/11/2017, 09/08/2016, 06/01/2015, Additional history exists DTaP,Tdap,and Td Vaccines (2 - Td) 12/12/2021 12/13/2011, 07/06/2006 LIPID SCREEN EVERY 5 YRS-MEN AGE 35-75 09/11/2022 09/11/2017, 09/08/2016, 06/01/2015, Additional history exists as of this encounter Implants Not on fileas of this encounter Visit Diagnoses Diagnosis Need for prophylactic vaccin ation and inoculation against influenza - Primary in this encounter
--- OUTSIDE RECORDS SUMMARY | 2023-02-20 21:47 | External Medical Summary | Summary of Care ---
Author Name Unknown Organization [place] [address] Phone Care Team Providers Care Transitional Care Manager Name Role Phone Armani Arreguin MD Primary Care Provider + [phone] Reason for Visit * Reason Comments eRx-Medication Refill Encounter Details Date Type Department Care Team Description 12/21/2017 Refill Internal Medicine [address] [address] Armani Arreguin MD [address] [place] [address] [place] [address] [phone] Esophageal reflux Allergies No Known Allergiesas of this encounter Medications Prescription Sig. Disp. Refills Start Date End Date Status LISINOPRIL 40 MG PO TABS One pill by mouth once a day from [place] 90 Tab 3 12/13/2011 Active TOPROL XL 50 MG PO TB24 One pill by mouth twice a day from MT 90 Tab 3 12/13/2011 Active VIAGRA 100 [...] mouth daily. 1 bedtime 0 10/28/2016 Active baclofen (LIORESAL) 10 MG Tablet 1 twice a day 180 Tab 3 01/10/2017 Active celecoxib (CELEBREX) 200 MG CapsuleIndications :C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 for pain 30 Cap 5 03/13/2017 Active traZODone (DESYREL) 100 MG TabletIndications: Persistent insomnia TAKE 1/2 TABLET DAILY AT BEDTIME 90 Tab 1 04/17/2017 Active traMADol (ULTRAM) 50 MG TabletIndications: Pain of right lower extremity Take 1 Tab by mouth every 6 hours as needed for Pain. 30 Tab 0 05/11/2017 Active omeprazole (PRILOSEC) 20 MG CPDRIndications:Es ophageal reflux TAKE 1 CAPSULE ONCE DAILY 1 HOUR BEFORE THE FIRST MEAL OF THE DAY 90 Cap 1 06/15/2017 Active RaNITidine HCl 150 MG CapsuleIndications :Esophageal reflux TAKE 1 CAPSULE AT BEDTIME 90 Cap 1 12/21/2017 Active RaNITidine HCl 150 MG CapsuleIndications :Esophageal reflux TAKE 1 CAPSULE AT BEDTIME 90 Cap 1 06/15/2017 12/21/2017 Discontinued as of this encounter Active Problems Problem Noted Date Rupture of hamstring tendon 05/26/2017 Overview: right [...] disorder Psoriasis Rosacea Hyperlipidemia LDL goal <130 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 Resolved Problems [...] Name Dates Previously Given Next Due Pneumococcal Polyvalent Vacc (Pneumovax) 09/18/2013,12/18/2008 Seasonal Influenza, Quadriva lent, No Preserve, IM 02/09/2017,01/15/2016,03/16/2015 Seasonal Influenza, Trivalen t, with Preserve, 3yr & Above, Split 01/07/2014,01/24/2013,02/16/2012,02/05,01/06/2010,05/08/2007 TD - Tetanus/Diptheria (ADULT) 07/06/2006 TDAP (age [...] Telephone Encounter - Armani Arreguin MD - 12/21/2017 1:11 PM EDT Signed Prescriptions: Disp Refills RaNITidine HCl 150 MG Capsule 90 Cap 1 Sig: TAKE 1 CAPSULE AT BEDTIME Authorizing Provider: ARMANI ARREGUIN * Telephone Encounter - Sharron Desouza LPN - 12/21/2017 12:40 PM EDT Pending Prescriptions: Disp Refills RaNITidine HCl 150 MG Capsule [Pharmacy M*90 Cap 1 Sig: TAKE 1 CAPSULE AT BEDTIME * Telephone Encounter - Sharron Desouza LPN - 12/21/2017 12:39 PM EDT Formatting of this note may be different from the original. Pending Prescriptions: Disp Refills RaNITidine HCl 150 MG Capsule [Pharmacy M*90 Cap 1 Sig: TAKE 1 CAPSULE AT BEDTIME Last Office Visit: 10/16/2017 Next Office Visit: 04/17/2018 Scheduled Provider(s): Armani Arreguin MD Last date the medication was ordered: 06/15/17 Patient Active Problem List Diagnosis Code Essential hypertension with goal blood pressure less than 140/90 I10 Tobacco use disorder F17.200 Esophageal reflux K21.9 Psoriasis L40.9 Rosacea L71.9 IMPOTENCE, 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 GENERALIZED ANXIETY DIS F41.1 Major depressive disorder, single episode, moderate (HCC) F32.1 ADVANCE DIRECTIVE INFORMATION Raynaud's syndrome I73.00 Hyperlipidemia LDL goal <130 E78.5 Insemination Workerdonald riley F48.8 History of squamous cell carcinoma Z85.89 History of basal cell carcinoma Z85.828 Persistent insomnia G47.00 Rupture of hamstring tendon S76.319A Labs: CREATININE-OUTSIDE LAB(MG/DL) Carleen Dt/Tm Resulted Value [...] 10/14/16 33 FINAL Hemoglobin AIC Results: HEMOGLOBIN, B2B-GJMMCRE LAB(%) Carleen Dt/Tm Resulted Value Status 09/08/16 10/14/16 5.4 FINAL 05/12/14 06/12/14 5.8 FINAL in this encounter Plan of Treatment Upcoming Encounters Date Type Specialty Care Team Description 01/12/2018 Office Visit Neurology Lynn Hoover MD [address] [facility] [place] [address] [phone] 03/08/2018 Office Visit Dermatology Kristy Castellanos MD [address] [place] [place] [address] [phone] 04/17/2018 Office Visit Internal Medicine Armani Arreguin MD [address] [place] [address] [place] [address] [phone] Health Maintenance Due Date Last Done Comments Influenza Vaccine (FLU shot) (#1) 2018 02/09/2017, 01/15/2016, 03/16/2015, Additional history exists COLONOSCOPY-EVERY [...] fileas of this encounter Visit Diagnoses Diagnosis Esophageal reflux in this encounter
--- OUTSIDE RECORDS SUMMARY | 2023-02-20 21:47 | External Medical Summary | Summary of Care ---
Author Name Unknown Organization [place] [address] Care Team Providers Care Organ Teacher Name Role Phone Armani Hough MD Primary Care Provider Unava ilable Encounter Details Date Type Department Care Team Description 09/18/2018 Scan Encounter Neurology [facility] [address] [place] [address] Lynn Hoover MD [address] [place] [address] [phone] <No scans attached> Allergies No Known Allergiesdocumented as of this encounter (statuses as of 10/04/2018) Medications Medication Sig Dispensed Refills Start Date End Date Status LISINOPRIL 40 MG PO TABS One pill by mouth once a day from [place] 90 Tab 3 12/13/2011 Active TOPROL XL 50 MG PO TB24 One pill by mouth twice a day from [place] 90 Tab 3 12/13/2011 Active VIAGRA 100 [...] 1 tab twice a day 0 04/04/2018 Act sulaiman omeprazole (PRILOSEC) 20 MG CPDRIndications:Esoph ageal reflux TAKE 1 CAP BY MOUTH DAILY. [...] 0 05/22/2018 Active RaNITidine HCl 150 MG CapsuleIndications:Es ophageal reflux TAKE 1 CAPSULE AT BEDTIME 90 Cap 1 06/06/2018 Active celecoxib (CELEBREX) 200 MG CapsuleIndications:Ch ronic bilateral low back pain with left-sided sciatica Take 1 Cap by mouth daily. 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 documented as of this encounter (statuses as of 10/04/2018) Resolved Problems Problem Noted Date Resolved Date [...] as of this encounter (statuses as of 10/04/2018) Immunizations Name Administration Dates Next Due Pneumococcal Polysaccharide PPV23 (Pneumovax) 09/18/2013,12/18/2008 [...] Encounters Date Type Specialty Care Team Description 11/05/2018 Office Visit Internal Medicine Armani Hough MD [address] [place] [address] [place] [address] [phone] 01/17/2019 Office Visit Neurology Lynn Hoover MD [address] [place] [address] [phone] 03/15/2019 Office Visit Dermatology Nikia Canales MD [address] [place] [address] [phone] Health Maintenance Due Date Last Done Comments *DEPRESSION SCREENING, ANNUAL FOR PTS 18 AND OVER 04/19/2018 PNEUMOCOCCAL ADULT 65 YRS AND OVER (1 of 2 - PCV13) 2018 09/18/2013, 12/18/2008 COLONOSCOPY-EVERY 3 YRS AGES 18-100 06/03/2019 06/03/2016, [...] Documents on File Type Date Recorded Patient Supervisor Records Change Expl anation Advanced Directive Advanced Directive Advanced Directive Advanced Directive Advanced Directive Advanced Directive Advanced Directive Advanced Directive 06/03/2016 8:20 AM
--- OUTSIDE RECORDS SUMMARY | 2023-02-20 21:47 | External Medical Summary | Summary of Care ---
Author Name Unknown Organization [place] [address] Care Team Providers Care Redrying Machine Operator Name Role Phone Armani Hough MD Primary Care Provider + [phone] Encounter Details Date Type Department Care Team Description 10/10/2018 Orders Only Internal Medicine [address] [address] Armani Hough MD [address] [place] [address] [place] [address] [phone] Allergies No Known Allergiesdocumented as of this encounter (statuses as of 10/10/2018) Medications Medication Sig Dispensed Refills Start Date [...] 2 03/15/2018 Active omeprazole (PRILOSEC) 20 MG CPDRIndications:Esop hageal reflux TAKE 1 CAP BY MOUTH DAILY. [...] 0 05/22/2018 Active RaNITidine HCl 150 MG CapsuleIndications:E sophageal reflux TAKE 1 CAPSULE AT BEDTIME 90 Cap 1 06/06/2018 Active celecoxib (CELEBREX) 200 MG CapsuleIndications:C 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 for pain 30 Cap 5 06/27/2018 Active sertraline (ZOLOFT) 25 MG Tablet Take 1 Tab by mouth daily. 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 documented as of this encounter (statuses as of 10/10/2018) Resolved Problems Problem Noted Date Resolved Date [...] as of this encounter (statuses as of 10/10/2018) Immunizations Name Administration Dates Next Due Pneumococcal [...] Office Visit Neurology Lynn Hoover MD [address] [place] [address] [phone] 03/15/2019 Office Visit Dermatology Nikia Canales MD 200 [facility] [place] [address] [phone] 04/11/2019 Office Visit Internal Medicine Armani Hough MD [address] [place] [address] [place] [address] [phone] Health Maintenance Due Date Last Done Comments *DEPRESSION SCREENING, ANNUAL FOR PTS 18 AND OVER 04/19/2018 PNEUMOCOCCAL ADULT 65 YRS AND OVER (2 of 2 - PPSV23) 09/18/2018 09/18/2013, 12/18/2012, 12/18/2008 *BASIC METABOLIC PANEL (BMP) FOR HTN YEARLY 09/30/2018 COLONOSCOPY-EVERY 3 YRS AGES 18-100 06/03/2019 06/03/2016, [...] Priority Date/Time Associated Diagnosis Comments CHEMISTRY-OUTSIDE Routine 09/12/2018 documented in this encounter Results * CHEMISTRY-OUTSIDE (09/12/2018) CREATININE-OUTSIDE LAB 0.9 0.6 - 1.5 MG/DL OUTSIDE LAB (SEE SCANNED REPORT) GFR ESTIMATED-OUTSIDE LAB 90 ML/MIN OUTSIDE LAB (SEE SCANNED REPORT) POTASSIUM-OUTSIDE LAB 5.0 3.6 - 5.1 MMOL/L OUTSIDE LAB (SEE SCANNED REPORT) GLUCOSE-OUTSIDE LAB 97 70 - 99 MG/DL OUTSIDE LAB (SEE SCANNED REPORT) HOURS FASTING OUTSIDE LAB (S EE SCANNED REPORT) TRIGLYCERIDES-OUTSIDE LAB 63 <=150 MG/DL OUTSIDE LAB (SEE SCANNED REPORT) CHOLESTEROL-OUTSIDE LAB 192 <=200 MG/DL OUTSIDE LAB (SEE SCANNED REPORT) HDL-OUTSIDE LAB 66.4(A) 40 - 60 MG/DL OUTSIDE LAB (SEE SCANNED REPORT) CHOL/HDL RATIO-OUTSIDE LAB OUTSIDE LAB (SEE SCANNED REPORT) LDL (CALCULATED)-OUTSIDE LAB 113(A) 5 - 100 MG/DL OUTSIDE LAB (SEE SCANNED REPORT) LDL (DIRECT MEASURE)-OUTSIDE LAB OUTSIDE LAB (SEE SCANNED REPORT) HEMOGLOBIN, [id number] LAB OUTSIDE LAB (SEE SCANNED REPORT) PHOSPHORUS-OUTSIDE LAB OUTSIDE LAB (SEE SCANNED REPORT) PTH-OUTSIDE LAB OUTSIDE LAB (SEE SCANNED REPORT) MICROALBUMIN RATIO-OUTSIDE LAB OUTSIDE LAB (SEE SCANNED REPORT) PROTEIN, UA-OUTSIDE LAB OUTSIDE LAB (SEE SCANNED REPORT) HEMOGLOBIN-OUTSIDE LAB 14.6 12.4 - 17.3 G/DL OUTSIDE LAB (SEE SCANNED REPORT) CHEMISTRY COMMENT-OUTSIDE LAB Comment:SEE SCAN: [facility]: VIT D, CBCD, PSA, CMP OUTSIDE LAB (SEE SCANNED REPORT) Specimen Narrative Performed At Performing Organization Address City/State/Zipcod e Phone Number OUTSIDE LAB (SEE SCANNED REPORT) documented in this encounter Advance Directives Documents on File Type Date Recorded Patient Assembler Wire Mesh Gate Expl anation Advanced Directive Advanced Directive Advanced Directive Advanced Directive Advanced Directive Advanced Directive Advanced Directive Advanced Directive 06/03/2016 8:20 AM Advanced Directive
--- OUTSIDE RECORDS SUMMARY | 2023-02-20 21:47 | External Medical Summary | Summary of Care ---
Author Name Unknown Organization [place] [address] Care Team Providers Care Second Vp Hr Assessment Name Role Phone Armani Hough MD Primary Care Provider + [phone] Reason for Visit * Reason Comments eRx-Medication Refill Encounter Details Date Type Department Care Team Description 12/08/2018 Refill Neurology [facility] [address] [place] [address] Reinaldo Hoover MD [address] [place] [address] [phone] Allergies No Known Allergiesdocumented as of this encounter (statuses as of 12/17/2018) Medications Medication Sig Dispensed Refills Start Date [...] AT BEDTIME 90 Cap 1 06/06/2018 Active sertraline (ZOLOFT) 25 MG Tablet Take [...] THE EVENING 270 Tab 1 12/17/2018 Active baclofen (LIORESAL) 10 MG Tablet TAKE 2 TABLETS BY MOUTH IN THE MORNING AND 1 TABLET IN THE EVENING 270 Tab 1 05/18/2018 12/08/2018 Discontinued documented as of this encounter (statuses as of 12/17/2018) Active Problems Problem Noted Date Essential tremor [...] disorder Psoriasis Rosacea Hyperlipidemia LDL goal <130 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 as of this encounter (statuses as of 12/17/2018) Resolved Problems Problem Noted Date Resolved Date [...] as of this encounter (statuses as of 12/17/2018) Immunizations Name Administration Dates Next Due Pneumococcal [...] Telephone Encounter - Reinaldo Hoover MD - 12/17/2018 10:23 AM EDT Signed Prescriptions: Disp Refills baclofen (LIORESAL) 10 MG Tablet 270 Tab1 Sig: TAKE 2 TABLETS BY MOUTH IN THE MORNING AND 1 TABLET IN THE EVENING Authorizing Provider: REINALDO HOOVER * Telephone Encounter - Yvonne Pettit LPN - 12/10/2018 1:51 PM EDT Pending Prescriptions: Disp Refills baclofen (LIORESAL) 10 MG Tablet [Pharmac*270 Tab1 Sig: TAKE 2 TABLETS BY MOUTH IN THE MORNING AND 1 TABLET IN THE EVENING * Telephone Encounter - Yvonne Pettit LPN - 12/10/2018 1:50 PM EDT Pending Prescriptions: Disp Refills baclofen (LIORESAL) 10 MG Tablet [Pharmac*270 Tab1 Sig: TAKE 2 TABLETS BY MOUTH IN THE MORNING AND 1 TABLET IN THE EVENING Last Office Visit: 01/12/2018 Next Office Visit: 01/17/2019 Scheduled Provider(s): Reinaldo Hoover MD If no future appointments scheduled, and last appointment is greater than a year ago, please schedule patient for a follow-up appointment Last date the medication was ordered: 05/18/2018 Patient Phone Numbers Labs: Lab Results Component [...] Office Visit Neurology [facility]inaldo Hoover MD [address] [facility] [address] [phone] 03/15/2019 Office Visit Dermatology Nikia Canales MD [address] [place] [address] [phone] 04/11/2019 Office Visit Internal Medicine Armani Hough MD [address] [place] [address] [place] [address] [phone] Health Maintenance Due Date Last Done Comments [...] Documents on File Type Date Recorded Patient Plate And Weld Inspector Expl anation Advanced Directive Advanced Directive Advanced Directive Advanced Directive Advanced Directive Advanced Directive Advanced Directive Advanced Directive 06/03/2016 8:20 AM Advanced Directive
--- OUTSIDE RECORDS SUMMARY | 2023-02-20 21:47 | External Medical Summary | Summary of Care ---
Author Name Unknown Organization [place] [address] Phone Care Team Providers Care Hog Tender Name Role Phone Armani Hough MD Primary Care Provider + [phone] Reason for Visit * Reason Comments RECHECK Encounter Details Date Type Department Care Team Description 01/12/2018 Office Visit Neurology [facility] [address] [place] [address] Lynn Hoover MD 200 [place] [address] [phone] Patcher Helper's cramp*;Essential tremor Allergies No Known Allergiesas of this encounter Medications Prescription Sig. Disp. Refills Start Date End Date Status LISINOPRIL 40 MG PO TABS One pill by mouth once a day from [place] 90 Tab 3 12/13/2011 Active TOPROL XL 50 MG PO TB24 One pill by mouth twice a day from [place] 90 Tab 3 12/13/2011 Active VIAGRA 100 [...] 0 10/28/2016 Active celecoxib (CELEBREX) 200 MG CapsuleIndications :Chronic [...] the evening 270 Tab 1 01/12/2018 Active baclofen (LIORESAL) 10 MG Tablet 1 twice a day 180 Tab 3 01/10/2017 01/12/2018 Discontinued as of this encounter Active Problems [...] disorder Psoriasis Rosacea Hyperlipidemia LDL goal <130 Patcher Helper's cramp as of this encounter Resolved Problems [...] Not on file as of this encounter Last Filed Vital Signs Vital Sign Reading Time Taken Blood Pressure 126/76 01/12/2018 8:44 AM EDT Pulse 68 01/12/2018 8:44 AM EDT Temperature 36.1 C (96.9 F) 01/12/2018 8 :44 AM EDT Respiratory Rate - - Oxygen Saturation - - Inhaled Oxygen Concentration - - Weight 93.9 kg (207 lb 1.6 oz) 01/13/20 8:44 AM EDT Height - - Body Mass Index 30.58 01/12/2018 8:44 AM EDT in this encounter Functional Status Functional Status [...] Progress Notes * Lynn Hoover MD - 01/12/2018 9:12 AM EDT Dictated by Lynn Hoover MD in this encounter Miscellaneous Notes * Outpatient clinic note - Lynn Hoover MD - 01/12/2018 9:28 AM EDT Formatting of this note may be different from the original. CLINIC NOTES [facility] [place] [address] MAGEN LI MR #[id number] : 1955 NEUROLOGY OUTPATIENT NOTE 01/12/2018 Mr. 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 He takes baclofen 10 twice a day for essential tremor. He does note some tremulousness worse around 12 or 1 o'clock in the day. He does not notice any fatigue from the baclofen. He switched his handedness becauseof the Writers cramp in the left hand. I he has not had any change in medical or surgical history. Outpatient Prescriptions Marked as Taking for the 01/12/18 encounter (Office Visit) with Lynn Hoover MD Medication Sig baclofen (LIORESAL) 10 MG Tablet 2 in the morning 1 in the evening RaNITidine HCl 150 MG Capsule TAKE 1 CAPSULE AT BEDTIME omeprazole (PRILOSEC) 20 MG CPDR TAKE 1 CAPSULE ONCE DAILY 1 HOUR BEFORE THE FIRST MEAL OF THE DAY traMADol (ULTRAM) 50 MG Tablet Take 1 Tab by mouth every 6 hours as needed for Pain. traZODone (DESYREL) 100 MG Tablet TAKE 1/2 TABLET DAILY AT BEDTIME celecoxib (CELEBREX) 200 MG Capsule Take 1 Cap by mouth daily. for pain venlafaxine (EFFEXOR) 75 MG Tablet Take 75 mg by mouth daily. 1 bedtime BuPROPion HCl ER, SR, 200 MG TB12 Take 200 mg by mouth 2 times a day. 1 twice daily Cholecalciferol (VITAMIN D) 2000 UNITS Tablet Take 2,000 Units by mouth daily. tacrolimus (PROTOPIC) 0.1 % ointment Apply to psoriasis on the genitals twice daily as needed for flares. atorvaSTATin (LIPITOR) 40 MG Tablet daily triamcinolone acetonide (ARISTOCORT) 0.1 % cream Apply topically to affected area 2 times a dayas needed for Itching. To affected area of body. LISINOPRIL 40 MG PO TABS One pill by mouth once a day from [facility] TOPROL XL 50 MG PO TB24 One pill by mouth twice a day from [facility] Filed Vitals: 01/12/18 0844 BP: 126/76 Pulse: 68 Temp: 36.1 C (96.9 F) TempSrc: Tympanic Weight: 93.9 kg (207 lb 1.6 oz) EXAM: He is awake and alert. There is no facial masking. No resting tremor. No cogwheel rigidity. There is a mild tremor with intention. His gait is unremarkable. IMPRESSION: 1. Essential tremor. He can try increasing baclofen to 2 in the morning, 1 in the evening and see if it is helpful provided it does not cause sedation. 2. Writers cramp not requiring any treatment. Patient has switched handedness. Return yearly. MD IVETH Betts/PRINCE: Doc#: [id number] in this encounter Plan of Treatment Upcoming Encounters Date Type Specialty Care Team Description 03/08/2018 Office Visit Dermatology Kristy Castellanos MD [address] [place] [address] [phone] 04/17/2018 Office Visit Internal Medicine Armani Hough MD [address] [place] [address] [place] [address] [phone] 01/17/2019 Office Visit Neurology Lynn Hoover MD [address] [place] [address] [place] [address] [phone] Health Maintenance Due Date Last Done Comments Zoster Vaccines HMT (1 of 2) 07/21/2003 Influenza Vaccine (FLU shot) (#1) 2017 02/09/2017, [...] fileas of this encounter Visit Diagnoses Diagnosis Patcher Helper's cramp - Primary Other somatoform disorders Essential tremor Essential and other specified forms of tremor in this encounter
--- OUTSIDE RECORDS SUMMARY | 2023-02-20 21:47 | External Medical Summary | Summary of Care ---
Author Name Unknown Organization [place] [address] Phone Care Team Providers Care Methods Specialist Name Role Phone Armani Hough MD Primary Care Provider + [phone] Reason for Visit * Reason Comments STATUS CHECK Encounter Details Date Type Department Care Team Description 10/16/2017 Office Visit Internal Medicine [address] [address] Armani Hough MD [address] [place] [address] [place] [address] [phone] Essential hypertension with goal blood pressure less than 140/90*;Hyperlipidemia LDL goal <130 Allergies No Known Allergiesas of this encounter [...] 3 01/10/2017 Active celecoxib (CELEBREX) 200 MG CapsuleIndications:Chr onic [...] 0 05/11/2017 Active omeprazole (PRILOSEC) 20 MG CPDRIndications:Esopha geal reflux TAKE 1 CAPSULE ONCE DAILY 1 HOUR BEFORE THE FIRST MEAL OF THE DAY 90 Cap 1 06/15/2017 Active RaNITidine HCl 150 MG CapsuleIndications:Eso phageal reflux TAKE 1 CAPSULE AT BEDTIME 90 Cap 1 06/15/2017 Active as of this encounter Active Problems [...] disorder Psoriasis Rosacea Hyperlipidemia LDL goal <130 Baggage Porter's cramp as of this encounter Resolved Problems [...] Vital Sign Reading Time Taken Blood Pressure 138/70 10/16/2017 8:20 AM EDT Pulse 64 10/16/2017 8:20 AM EDT Temperature 35.7 C (96.3 F) 10/16/2017 8 :20 AM EDT Respiratory Rate 12 10/16/2017 8:20 AM EDT Oxygen Saturation - - Inhaled Oxygen Concentration - - Weight 94.3 kg (208 lb) 10/16/2017 8:20 AM EDT Height - - Body Mass Index 30.72 10/16/2017 8:20 AM EDT in this encounter Functional Status [...] Progress Notes * Armani Hough MD - 10/16/2017 8:22 AM EDT Formatting of this note may be different from the original. No complaints of headache, trouble with vision or hearing. Eating well, with no bowel or bladder complaints. Denies chest pain or palpitations. Denies shortness of breath, PND, or orthopnea. No skin rashes or breakdown. No changes in mentation. The rest of a 10 point review of systems is negative. Past Medical History: Diagnosis Date Benign neoplasm of colon 10/15/10 polyp x1, path shows adenomatous tissue repeat in 5 years Dyslipidemia, goal LDL below 160 Encounter for [...] Rosacea Rupture of hamstring tendon 05/26/2017 right Baggage Porter's cramp Past Surgical History: Procedure Laterality Date COLONOSCOPY W/ LESION REMOVAL, SNARE 10/15/2010 polyp x1, path shows adenomatous tissue repeat in 5 years COLONOSCOPY W/ LESION REMOVAL, SNARE N/A 06/03/2016 7,6,2 mm polyps ascending, 6,3 mm polyps transverse colon Repeat 3 years COLONOSCOPY, DIAGNOSTIC (RECTUM) 06/03/2016 adenomatous polyp, repeat 3 yrs/COLONOSCOPY FLEXIBLE PROXIMAL DIAGNOSTIC performed by Antoinette Godinez [...] allergies indicates: No Known Allergies Social History Social History Marital status: Spouse name: N/A Number of children: 2 Years of education: N/A 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 Social History Main Topics Smoking status: Former Smoker Packs/day: 0.25 Years: 40.00 Types: Cigarettes Quit date: 05/26/2014 Smokeless tobacco: Never Used Comment: quit for 10 years then restarted Alcohol use 3.0 oz/week 6 12 oz of beer per week Comment: occ Drug use: No Sexual activity: Yes Partners: Female Other Topics Concern Not on file Social History Narrative for 26 years. Two children in good health. 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 1 twice daily 0 celecoxib (CELEBREX) 200 MG Capsule Take 1 Cap by mouth daily. for pain 30 Cap 5 Cholecalciferol (VITAMIN D) 2000 UNITS Tablet Take 2,000 Units by mouth daily. LISINOPRIL 40 MG PO TABS One pill by mouth once a day [facility] 90 Tab 3 omeprazole (PRILOSEC) 20 MG CPDR TAKE 1 CAPSULE ONCE DAILY 1 HOUR BEFORE THE FIRST MEAL OF THE DAY 90 Cap 1 RaNITidine HCl 150 MG Capsule TAKE 1 CAPSULE AT BEDTIME 90 Cap 1 tacrolimus (PROTOPIC) 0.1 % ointment Apply to psoriasis on the genitals twice daily as needed for flares. 60 g 2 TOPROL XL 50 MG PO TB24 One pill by mouth twice a day from [place] 90 Tab 3 traMADol (ULTRAM) 50 MG Tablet Take 1 Tab by mouth every 6 hours as needed for Pain. 30 Tab 0 traZODone (DESYREL) 100 MG Tablet TAKE 1/2 TABLET DAILY AT BEDTIME 90 Tab 1 triamcinolone acetonide (ARISTOCORT) 0.1 % cream Apply topically to affected area 2 times a dayas needed for Itching. To affected area of body. 80 g 3 venlafaxine (EFFEXOR) 75 MG Tablet Take 75 mg by mouth daily. 1 bedtime 0 VIAGRA 100 MG PO TABS one as needed 6 Tab 5 LIPID PANEL Carleen Dt/Tm Resulted Value Status LDL CHOLESTEROL-OUTSIDE LAB (mg/dl) 09/10/13 10/02/13 106* FINAL [facility] O: Blood pressure 138/70, pulse 64, temperature 35.7 C (96.3 F), resp. rate 12, weight 94.3 kg (208 lb). General appearance: well developed, well nourished and in no acute distress. Neck is supple withoutadenopathy or thyromegaly. Chest is symmetrical and moves normally. The lungs are clear without wheezes, rales, rhonchi or rubs, and the heart is regular without murmurs or gallops, or ectopy. PMI not displaced. A: I10 Essential hypertension with goal blood pressure less than 140/90 (primary encounter diagnosis) E78.5 Hyperlipidemia ldl goal <130 Follow up: Return in about 6 months (around 04/17/2018). Continue other meds as before. in this encounter Nursing Notes * Francisca Molina RN - 10/16/2017 8:17 AM EDT 6 month check. in this encounter Plan of Treatment Upcoming Encounters Date Type Specialty Care Team Description 01/12/2018 Office Visit Neurology Lynn Hoover MD [address] [place] [address] [phone] 03/08/2018 Office Visit Dermatology Kristy Castellanos MD [address] [facility] [place] [address] [phone] 04/17/2018 Office Visit Internal Medicine Armani Hough MD [address] [place] [address] [place] [address] Health Maintenance Due Date Last Done Comments COLONOSCOPY-EVERY 3 YRS AGES 18-100 06/03/2019 06/03/2016, 06/03/2016, 10/15/2010 DIABETES SCREEN EVERY 3 YRS- AGE 45 AND ABOVE 09/11/2020 09/11/2017, 09/08/2016, 06/01/2015, Additional history exists DTaP,Tdap,and Td Vaccines (2 - Td) 12/12/2021 12/13/2011, 07/06/2006 LIPID SCREEN EVERY 5 YRS-MEN AGE 35-75 09/11/2022 09/11/2017, 09/08/2016, 06/01/2015, Additional history exists Influenza Vaccine (FLU shot) Completed 09/2016, 01/15/2016, 03/16/2015, Additional history exists as of this encounter Implants Not on fileas of this encounter Visit Diagnoses Diagnosis Essential hypertension with goal blood pressure less than 140/90 - Primary Hyperlipidemia LDL goal <130 Other and unspecified hyperlipidemia in this encounter
--- OUTSIDE RECORDS SUMMARY | 2023-02-20 21:47 | External Medical Summary | Summary of Care ---
Author Name Unknown Organization [place] [address] Care Team Providers Care Digital Sales Assistant Name Role Phone Armani Hough MD Primary Care Provider [phone] Reason for Visit * Reason Comments Status Check Encounter Details Date Type Department Care Team Description 10/09/2018 Office Visit Internal Medicine [address] [address] Armani Hough MD [address] [place] [address] [place] [address] [phone] Calcific tendonitis of right thigh*; Risk and functional assessment Allergies No Known Allergiesdocumented as of this encounter (statuses as of 10/09/2018) Medications Medication Sig Dispensed Refills Start Date [...] 5 10/09/2018 Active predniSONE (DELTASONE) 20 MG TabletIndications :Calcific tendonitis of right thigh One tablet daily for 2 weeks 14 Tab 0 10/09/2018 10/23/2018 Active montelukast (SINGULAIR) 10 MG Tablet TAKE TWO TABLETS BY MOUTH AT BEDTIME FOR ALLERGIES 0 09/20/2018 09/21/2019 Active venlafaxine (EFFEXOR) 37.5 MG Tablet 1 tab twice a day 0 04/04/2018 10/09/2018 Discontinued documented as of this encounter (statuses as of 10/09/2018) Active Problems Problem Noted Date Essential tremor [...] disorder Psoriasis Rosacea Hyperlipidemia LDL goal <130 Human Resources Assistant's cramp documented as of this encounter (statuses as of 10/09/2018) Resolved Problems Problem Noted Date Resolved Date [...] as of this encounter (statuses as of 10/09/2018) Immunizations Name Administration Dates Next Due Pneumococcal [...] Sign Reading Time Taken Comments Blood Pressure 118/62 10/09/2018 10:29 AM EDT Pulse 64 10/09/2018 10:29 AM EDT Temperature 36.1 C (97 F) 10/09/2018 10:29 AM EDT Respiratory Rate 12 10/09/2018 10:29 AM EDT Oxygen Saturation - - Inhaled Oxygen Concentration - - Weight 92.5 kg (204 lb) 10/09/2018 10:29 AM EDT Height 177.8 cm (5' 10") 10/09/2018 10:29 AM EDT Body Mass Index 29.27 10/09/2018 10:29 AM [...] this encounter Patient Instructions * Patient Instructions* Francisca Molina RN - 10/09/2018 10:29 AM EDT Patient Instructions - Fall Prevention (This education is for all patients over 65 regardless of symptoms) Remember to take your current medications as prescribed. In order to prevent falls, you are encouraged to: Exercise Utilize assistive/adaptive devices Avoid multifocal lenses when walking Avoid hazards in home Maintain a regular toileting schedule Any questions please contact our office. Preventing Falls in the Home (This education is for all patients over 65 regardless of symptoms) As you get older, falls are more likely. Thats because your reaction time slows. Your muscles and joints may also get stiffer, making them less flexible. Illness, medications, and vision changes can also affect your balance. A fall could leave you unable to live on your own. To make your home safer, follow these tips: Floors Put nonskid pads under area rugs Remove throw rugs Replace worn floor coverings Tack carpets firmly to each step on carpeted stairs. Put nonskid strips on the edges of uncarpeted stairs Keep floors and stairs free of clutter and cords Arrange furniture so there are clear pathways Clean up any spills right away Bathrooms Install grab bars in the tub or shower Apply nonskid strips or put a nonskid rubber mat in the tub or shower Sit on a bath chair to bathe Use bathmats with nonskid backing Lighting Keep a flashlight in each room Put a nightlight along the pathway between the bedroom and the bathroom [facility] Patient Education Copyright 2008 - 2010 [facility] except where otherwise noted Preventing Falls: Exercises to Improve Balance, Flexibility, Strength, and Staying Power (This education is for all patients over 65 regardless of symptoms) Certain types of exercises may help make you less likely to fall. Try the ones below. Or do other exercises that your healthcare provider suggests. Depending on your health, you may need to start slowly. Dont let that stop you. Even small amounts of exercise can help you. Be sure to talk to yourhealthcare provider before starting any exercise program. Improve Balance Many types of exercise can help improve balance. Jamey chi and yoga are good examples. Heres another one to try. You can do it anytime and almost anywhere. Stand next to a counter or solid support. Push yourself up onto your tiptoes. Hold for 5 seconds. If you start to lose your balance, hold on to the counter. Rest and repeat 5 times. Work up to holding for 20 to 30 seconds, if you can. Increase Flexibility Being more flexible makes it easier for you to move around safely. Try exercises like the seated hamstring stretch. Sit in a chair and put one foot on a stool. Straighten your leg and reach with both hands down either side of your leg. Reach as far down your leg as you can. Hold for about 20 seconds. Go back to the starting position. Then repeat 5 times. Switch legs. Build Strength Resistance exercises help build strength. You can do them without equipment. Or you can use weights, elastic bands, or special machines. One such exercise is called the biceps curl. You can hold a 1 pound weight or even a can of soup. Do this exercise at least 3 times a week. Strive for everyday. Sit up straight in a chair. Keep your elbow close to your body and your wrist straight. Bend your arm, moving your hand up to your shoulder. Then slowly lower your arm. Repeat 5 times. Switch to the other arm. Build Your Staying Power Aerobic exercises make your heart and lungs stronger so you can keep moving longer. Walking and swimming are two of the best types of exercises you can do. Using a stationary bike is great, too. Find an aerobic exercise that you enjoy. Start slowly and build up. Even 5 minutes is helpful. Aimfor a goal of 30 minutes, at least 3 times a week. You dont have to do 30 minutes in one session. Break it up and walk a little throughout the day. More Helpful Tips Start easy. Slowly work up to doing more. Talk with your healthcare provider about the best exercises for you. Call senior centers or health clubs about exercise programs. If needed, have a family member watch you walk every so often to check your stability. Exercise with a friend. Choose an activity you both enjoy. Try exercises that you can do anytime, anywhere. Here are two examples. Have someone with you when you first try these: Practice walking by placing one foot right in front of the other. Stand up and sit down 10 times. Repeat this throughout the day. [employer] Patient Education Copyright 2009 - 2010 [employer] except where otherwise noted. Preventing Falls: Moving Safely Using a Cane or Walker (This education is for all patients over 65 regardless of symptoms) Keep the cane away from your feet so you dont trip. A walking aid, such as a cane or walker, can help you stay more independent and avoid falls. Remember to keep your walking aid within easy reach when youre in a chair or in bed. And learn how to use it safely so you dont injure yourself. Using a Cane If you have a stronger side, hold the cane on that side. 17. Get your balance. 18. Move the cane and your weaker leg forward. 19. Support your weight on both the cane and your weaker side. 20. Step with your stronger leg. 21. Start again from step 1. If youre using a folding walker, be sure you know how to lock it open. Check that its locked open before each use. Using a Walker 7. Roll the walker (or lift it, if youre using one without wheels) forward about 12 inches. 8. Step forward with your weaker leg first. 9. Use the walker to help keep your balance. 10. Bring your other foot forward to the center of the walker. 11. Start again from step 1. Helpful Tips Check with your healthcare provider about the right walking aid to use. Ask about a walker with a seat attached. Check the tips of your cane or walker to make sure they have nonskid covers. Move slowly from room to room. Dont napier. Sit down to get dressed. Use a ivana pack or backpack to keep your hands free. Get help for jobs that mean climbing, even on a stepstool. [employer] Patient Education Copyright 2008 - 2010 [employer] except where otherwise noted. Treating Urinary Incontinence in Men (This education is for all patients over 65 regardless of symptoms) You can't always control the release of urine. You may leak urine. Or you may not be able to hold your urine until you can get to a bathroom. This is called urinary incontinence. The problem can be managed. Talk to your doctor about your treatment options. Taking Medications Prescription medications may help you. They may: Help the sphincter to work better. (This is the muscle that closes to keep urine from leaking out of the bladder.) Help stop the bladder from salvador too often to push urine out. Help the bladder muscles contract with more force. Help relax the sphincter muscle and allow urine to flow more freely. Making Changes to Your Routine Certain changes in your daily routine may help. These include: Avoiding caffeine and alcohol. Using timed voiding. This is following a schedule for drinking fluids and urinating. Doing Kegel exercises daily. These exercises involve tightening the muscles in your sphincter and around your bladder to help strengthen them. Your doctor can explain how to do them. Using a Catheter A catheter is a narrow tube that is inserted through the urethra into the bladder. It drains urine.A condom catheter covers the penis. It channels urine into a collection bag. It is worn most of thetime. Intermittent catheterization means inserting a catheter to drain the bladder, then removing it. This is done on a regular schedule. Having Surgery If other options don't work, surgery may be recommended. If surgery is an option, your healthcare provider can discuss it with you and explain its risks and benefits. Healing After Prostate Surgery Surgery on the prostate gland can cause incontinence. Most often, the incontinence is only for a short time. It clears up when healing is complete. Very rarely, prostate surgery can result in permanent incontinence. documented in this encounter Progress Notes * Armani Hough MD - 10/09/2018 10:25 AM EDT Nursing Notes: Francisca Molina RN 10/09/18 1034 Signed Bilateral hip pain for over 1 year. States it is a burning pain. Difficult to walk without stoppingto rest. Cuong saw Jannie 05/25 for sharp right hip pain and a CT showed an avulsion of the right hamstring andgluteus calcific tendonitis. He is still getting mostly posterior buttock pain when walking up any incline that resolves with rest. Celebrex not that helpful. [facility] we will scan [facility]. He probably had Prevnar as well. Past Medical History: Diagnosis Date Benign neoplasm [...] Rosacea Rupture of hamstring tendon 05/26/2017 right Human Resources Assistant's cramp Past Surgical History: Procedure Laterality Date COLONOSCOPY W/ LESION REMOVAL, SNARE 10/15/2010 polyp x1, path shows adenomatous tissue repeat in 5 years COLONOSCOPY, DIAGNOSTIC (RECTUM) 06/03/2016 7,6,2 mm polyps ascending, 6,3 mm polyps transverse colon Repeat 3 years/COLONOSCOPY FLEXIBLE PROXIMAL DIAGNOSTIC performed by Antoinette Godinez MD at ENDOSCOPY 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 30 Tab 5 celecoxib (CELEBREX) 200 MG Capsule Take 1 Cap by mouth daily. for pain 30 Cap 5 RaNITidine HCl 150 MG Capsule TAKE 1 CAPSULE AT BEDTIME 90 Cap 1 baclofen (LIORESAL) 10 MG Tablet TAKE 2 TABLETS BY MOUTH IN THE MORNING AND 1 TABLET IN THE EVENING 270 Tab 1 omeprazole (PRILOSEC) 20 MG CPDR [...] times a day. 1 twice daily 0 tacrolimus (PROTOPIC) 0.1 % ointment Apply to psoriasis on the genitals twice daily as needed for flares. 60 g 2 atorvaSTATin (LIPITOR) 40 MG Tablet daily 30 Tab 5 VIAGRA 100 MG PO TABS one as needed 6 Tab 5 LISINOPRIL 40 MG PO TABS One pill by mouth once a day from [facility] 90 Tab 3 TOPROL XL 50 MG PO TB24 One pill by mouth twice a day from [place] 90 Tab 3 Hydrocortisone 2.5 % ointment Apply to rash on the face twice daily x 3-4 days, then 2-3 x's per week. 15 g 0 Cholecalciferol (VITAMIN D) 2000 UNITS Tablet Take 2,000 Units by mouth daily. triamcinolone acetonide (ARISTOCORT) 0.1 % cream Apply topically to affected area 2 times a day as needed for Itching. To affected area of body. 80 g 3 Immunization History Administered Date(s) Administered Pneumococcal Polysaccharide PPV23 (Pneumovax) 12/18/2008, 09/18/2013 Seasonal Influenza, Quadrivalent, No Preserve, 6 Mons & Above, IM 02/08/2018 Seasonal Influenza, Quadrivalent, No Preserve, IM 03/16/2015, 01/15/2016, 02/09/2017 Seasonal Influenza, Trivalent, with Preserve, 3yr & Above, Split 05/08/2007, 01/06/2010, 02/17/2011, 02/16/2012, 01/24/2013, 01/07/2014 TD - Tetanus/Diptheria (ADULT) 07/06/2006 TDAP (age 10 and older)(Boostrix) 12/13/2011 LIPID PANEL Carleen Dt/Tm Resulted Value Status LDL CHOLESTEROL-OUTSIDE LAB (mg/dl) 09/10/13 10/02/13 106* FINAL BASIC METAB PANEL Carleen Dt/Tm Resulted Value Status BUN (mg/dL) 07/14/06 9:07/14/06 20 F CREATININE (mg/dL) 07/14/06 9:07/14/06 1.1 F SODIUM (mmol/L) 07/14/06 9:07/14/06 135 F POTASSIUM (mmol/L) 07/14/06 9:07/14/06 4.4 F CHLORIDE (mmol/L) 07/14/06 9:07/14/06 100 F CO2 (mmol/L) 07/14/06:07/14/06 27 F GLUCOSE (mg/dL) 07/14/06 9:07/14/06 101 F ANION GAP (mEq/L) 07/14/06 9:07/14/06 8 F CALCIUM (mg/dL) 07/14/06 9:07/14/06 9.6 F GFR ESTIMATED (mL/min) 07/14/06:07/14/06 >60.0 F O: Blood pressure 118/62, pulse 64, temperature 36.1 C (97 F), resp. rate 12, height 1.778 m (5' 10"), weight 92.5 kg (204 lb). General appearance: well developed, well nourished and in no acute distress. Neck is supple withoutadenopathy or thyromegaly. Chest is symmetrical and moves normally. The lungs are clear without wheezes, rales, rhonchi or rubs, and the heart is regular without murmurs or gallops, or ectopy. PMI not displaced. A: Calcific tendonitis of right thigh (Primary) - predniSONE (DELTASONE) 20 MG Tablet; One tablet daily for 2 weeks Risk and functional assessment - PAT SCRN FOR FALL RISK - PRES OR ABS OF URIN INCONT Follow Up: Return in about 6 months (around 04/10/2019). Next would be ortho maybe?? documented in this encounter Nursing Notes * Francisca Molina RN - 10/09/2018 10:23 AM EDT Bilateral hip pain for over 1 year. States it is a burning pain. Difficult to walk without stoppingto rest. documented in this encounter Plan of Treatment Upcoming Encounters Date Type Specialty Care Team Description 01/17/2019 Office Visit Neurology Lynn [place] MD [address] [place] [address] [phone] 03/15/2019 Office Visit Dermatology Nikia Canales MD [address] [facility] [place] [address] [phone] 04/11/2019 Office Visit Internal Medicine Armani Hough MD [address] [place] [address] [place] [address] [phone] Health Maintenance Due Date Last Done Comments *DEPRESSION SCREENING, ANNUAL FOR PTS 18 AND OVER 04/19/2018 PNEUMOCOCCAL ADULT 65 YRS AND OVER (1 of 2 - PCV13) 2018 09/18/2013, 12/18/2008 *BASIC METABOLIC PANEL (BMP) FOR HTN [...] as of this encounter Visit Diagnoses Diagnosis Calcific tendonitis of right thigh- Primary Risk and functional assessment Screening for unspecified condition documented in this encounter Advance Directives Documents on File Type Date Recorded Patient Relay Adjuster Expl anation Advanced Directive Advanced Directive Advanced Directive Advanced Directive Advanced Directive Advanced Directive Advanced Directive Advanced Directive 06/03/2016 8:20 AM Advanced Directive
--- OUTSIDE RECORDS SUMMARY | 2023-02-20 21:47 | External Medical Summary | Summary of Care ---
Author Name Unknown Organization [place] [address] Care Team Providers Care Tumbler Dyeing Machine Operator Name Role Phone Armani Arreguin MD Primary Care Provider Unava ilable Reason for Visit * Reason Comments eRx-Medication Refill Encounter Details Date Type Department Care Team Description 06/06/2018 Refill Internal Medicine [address] [address] Armani Arreguin MD [address] [place] [address] [place] [address] [phone] Esophageal reflux Allergies No Known Allergiesdocumented as of this encounter (statuses as of 06/06/2018) Medications Medication Sig Dispensed Refills Start Date [...] AT BEDTIME 90 Cap 1 06/06/2018 Active RaNITidine HCl 150 MG CapsuleIndication s:Esophageal reflux TAKE 1 CAPSULE AT BEDTIME 90 Cap 1 12/21/2017 06/06/2018 Discontinued documented as of this encounter (statuses as of 06/06/2018) Active Problems Problem Noted Date Essential tremor [...] disorder Psoriasis Rosacea Hyperlipidemia LDL goal <130 Biological Technical Officer's cramp documented as of this encounter (statuses as of 06/06/2018) Resolved Problems Problem Noted Date Resolved Date [...] as of this encounter (statuses as of 06/06/2018) Immunizations Name Dates Previously Given Next Due [...] Telephone Encounter - Armani Arreguin MD - 06/06/2018 5:19 PM EST Signed Prescriptions: Disp Refills RaNITidine HCl 150 MG Capsule 90 Cap 1 Sig: TAKE 1 CAPSULE AT BEDTIME Authorizing Provider: ARMANI ARREGUIN * Telephone Encounter - Sharron Desouza LPN - 06/06/2018 4:37 PM EST Pending Prescriptions: Disp Refills RaNITidine HCl 150 MG Capsule [Pharmacy M*90 Cap 1 Sig: TAKE 1 CAPSULE AT BEDTIME * Telephone Encounter - Sharron Desouza LPN - 06/06/2018 4:37 PM EST Pending Prescriptions: Disp Refills RaNITidine HCl 150 MG Capsule [Pharmacy M*90 Cap 1 Sig: TAKE 1 CAPSULE AT BEDTIME Last Office Visit: 04/04/2018 Next Office Visit: No Future Appointments Last date the medication was ordered: 12/21/17 Patient Active Problem List Diagnosis Code Essential hypertension with goal blood pressure less than 140/90 I10 Tobacco use disorder F17.200 Esophageal reflux K21.9 Psoriasis L40.9 Rosacea L71.9 IMPOTENCE, 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 GENERALIZED ANXIETY DIS F41.1 Major depressive disorder, single episode, moderate (HCC) F32.1 ADVANCE DIRECTIVE INFORMATION Raynaud's syndrome I73.00 Hyperlipidemia LDL goal <130 E78.5 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 Technical Officer'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 F48.8 History of squamous cell carcinoma [...] 10/14/16 33 FINAL Hemoglobin AIC Results: HEMOGLOBIN, N1S-LCUGHET LAB(%) Carleen Dt/Tm Resulted Value Status 09/08/16 10/14/16 5.4 FINAL 05/12/14 06/12/14 5.8 FINAL documented in this encounter Plan of Treatment Upcoming Encounters Date Type Specialty Care Team Description 01/17/2019 Office Visit Neurology Lynn [place] MD [address] [place] [address] [phone] 03/15/2019 Office Visit Dermatology Nikia Canales MD [address] [place] [address] [phone] Health Maintenance Due Date Last Done Comments [...] reflux documented in this encounter Advance Directives Patient has advance care planning documents on file. For more information, please contact: TAI Lugo [phone]
--- OUTSIDE RECORDS SUMMARY | 2023-02-20 21:47 | External Medical Summary | Summary of Care ---
Author Name Unknown Organization [place] [address] Care Team Providers Care Book Or Script Editor Name Role Phone Armani Arreguin MD Primary Care Provider [phone] Reason for Visit * Reason Comments eRx-Medication Refill Encounter Details Date Type Department Care Team Description 05/18/2018 Refill Internal Medicine [address] [address] Armani Arreguin MD [address] [place] [address] [place] [address] [phone] Esophageal reflux Allergies No Known Allergiesas of this encounter Medications Medication Sig Dispensed Refills Start Date End Date Status LISINOPRIL 40 MG PO TABS One pill by mouth once a day from PR 90 Tab 3 12/13/2011 Active TOPROL XL 50 MG PO TB24 One pill by mouth twice a day from PR 90 Tab 3 12/13/2011 Active VIAGRA 100 [...] the evening 270 Tab 1 01/12/2018 Active Ketoconazole 2 % cream Apply to rash on the face and ears 2-3 x's per week. 15 g 2 03/15/2018 Active venlafaxine (EFFEXOR) 37.5 MG Tablet 1 tab twice a day 0 04/04/2018 Active omeprazole (PRILOSEC) 20 MG CPDRIndications:E sophageal reflux TAKE 1 CAP BY MOUTH DAILY. 90 Cap 1 05/18/2018 Active omeprazole (PRILOSEC) 20 MG CPDRIndications:E sophageal reflux TAKE 1 CAPSULE ONCE DAILY 1 HOUR BEFORE THE FIRST MEAL OF THE DAY 90 Cap 1 02/05/2018 05/18/2018 Discontinued as of this encounter Active [...] disorder Psoriasis Rosacea Hyperlipidemia LDL goal <130 Radio Dispatcher's cramp as of this encounter Resolved Problems [...] Telephone Encounter - Armani Arreguin MD - 05/18/2018 10:26 AM EST Signed Prescriptions: Disp Refills omeprazole (PRILOSEC) 20 MG CPDR 90 Cap 1 Sig: TAKE 1 CAP BY MOUTH DAILY.Authorizing Provider: ARMANI ARREGUIN * Telephone Encounter - Sharron Desouza LPN - 05/18/2018 10:08 AM EST Pending Prescriptions: Disp Refills omeprazole (PRILOSEC) 20 MG CPDR [Pharmac*90 Cap 1 Sig: TAKE 1 CAP BY MOUTH DAILY. * Telephone Encounter - Sharron Desouza LPN - 05/18/2018 10:07 AM EST Pending Prescriptions: Disp Refills omeprazole (PRILOSEC) 20 MG CPDR [Pharmac*90 Cap 1 Sig: TAKE 1 CAP BY MOUTH DAILY. 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 GENERALIZED ANXIETY DIS F41.1 Major depressive disorder, single episode, moderate (HCC) F32.1 ADVANCE DIRECTIVE INFORMATION Raynaud's syndrome I73.00 Hyperlipidemia LDL goal <130 E78.5 Radio Dispatcher's cramp F48.8 History of squamous cell carcinoma [...] 10/14/16 33 FINAL Hemoglobin AIC Results: HEMOGLOBIN, Q3G-NDOIAVG LAB(%) Carleen Dt/Tm Resulted Value Status 09/08/16 10/14/16 5.4 FINAL 05/12/14 06/12/14 5.8 FINAL in this encounter Plan of Treatment Upcoming Encounters Date Type Specialty Care Team Description 01/17/2019 Office Visit Neurology Lynn [place] MD [address] [place] [address] [phone] 03/15/2019 Office Visit Dermatology Nikia Canales MD [address] [place] [address] [phone] Health Maintenance Due Date Last Done Comments *DEPRESSION SCREENING, NAIA [place] FOR PTS 18 AND OVER 04/19/2018 [...] Diagnoses Diagnosis Esophageal reflux in this encounter Advance Directives Patient has advance care planning documents on file. For more information, please contact: T[place] Lugo [phone]
--- OUTSIDE RECORDS SUMMARY | 2023-02-20 21:47 | External Medical Summary | Summary of Care ---
Author Name Unknown Organization [place] [address] Phone Care Team Providers Care Profiling Machine Set Up Operator Tool Name Role Phone Armani Arreguin MD Primary Care Provider [phone] Reason for Visit * Reason Comments eRx-Medication Refill Encounter Details Date Type Department Care Team Description 02/04/2018 Refill Internal Medicine [address] [address] Armani Arreguin MD [address] [place] [address] [place] [address] [phone] Esophageal reflux Allergies No Known Allergiesas of [...] 0 05/11/2017 Active RaNITidine HCl 150 MG CapsuleIndications :Esophageal reflux TAKE 1 CAPSULE AT BEDTIME 90 Cap 1 12/21/2017 Active baclofen (LIORESAL) 10 MG Tablet 2 in the morning 1 in the evening 270 Tab 1 01/12/2018 Active omeprazole (PRILOSEC) 20 MG CPDRIndications:Es ophageal reflux TAKE 1 CAPSULE ONCE DAILY 1 HOUR BEFORE THE FIRST MEAL OF THE DAY 90 Cap 1 02/05/2018 Active omeprazole (PRILOSEC) 20 MG CPDRIndications:Es ophageal reflux TAKE 1 CAPSULE ONCE DAILY 1 HOUR BEFORE THE FIRST MEAL OF THE DAY 90 Cap 1 06/15/2017 02/04/2018 Discontinued as of this encounter Active Problems [...] disorder Psoriasis Rosacea Hyperlipidemia LDL goal <130 Nuclear Technologist's cramp as of this encounter Resolved Problems [...] Telephone Encounter - Armani Arreguin MD - 02/05/2018 2:30 PM EDT Signed Prescriptions: Disp Refills omeprazole (PRILOSEC) 20 MG CPDR 90 Cap 1 Sig: TAKE 1 CAPSULE ONCE DAILY 1 HOUR BEFORE THE FIRST MEAL OF THE DAY Authorizing Provider: ARMANI ARREGUIN * Telephone Encounter - Vielka Eller LPN - 02/05/2018 2:07 PM EDT Pending Prescriptions: Disp Refills omeprazole (PRILOSEC) 20 MG CPDR [Pharmac*90 Cap 1 Sig: TAKE 1 CAPSULE ONCE DAILY 1 HOUR BEFORE THE FIRST MEAL OF THE DAY * Telephone Encounter - Vielka Eller LPN - 02/05/2018 2:07 PM EDT Formatting of this note may be different from the original. Pending Prescriptions: Disp Refills omeprazole (PRILOSEC) 20 MG CPDR [Pharmac*90 Cap 1 Sig: TAKE 1 CAPSULE ONCE DAILY 1 HOUR BEFORE THE FIRST MEAL OF THE DAY Last Office Visit: 10/16/2017 Next Office Visit: [...] syndrome I73.00 Hyperlipidemia LDL goal <130 E78.5 Nuclear Technologist's cramp F48.8 History of squamous cell carcinoma [...] 10/14/16 33 FINAL Hemoglobin AIC Results: HEMOGLOBIN, [id number] LAB(%) Carleen Dt/Tm Resulted Value Status 09/08/16 10/14/16 5.4 FINAL 05/12/14 06/12/14 5.8 FINAL in this encounter Plan of Treatment Upcoming Encounters Date Type Specialty Care Team Description 03/08/2018 Office Visit Dermatology Kristy Castellanos MD [address] [facility] [place] [address] [phone] 04/17/2018 Office Visit Internal Medicine Armani Arreguin MD [address] [place] [address] [place] [address] [phone] 01/17/2019 Office Visit Neurology Lynn Hoover MD [address] [place] [address] [phone] Health Maintenance Due Date Last Done Comments [...]
--- OUTSIDE RECORDS SUMMARY | 2023-02-20 21:48 | External Medical Summary | Summary of Care ---
Author Name Unknown Organization [place] [address] Phone Care Team Providers Care River Pilot Name Role Phone Armani Hough MD Primary Care Provider [phone] Reason for Visit * Reason Comments pre-op exam Encounter Details Date Type Department Care Team Description 06/01/2017 Telephone Orthopaedics [facility] [address] [facility] [place] [address] Jose Mari, [address] [facility] [place] [address] [phone] pre-op exam Allergies No Known Allergiesas of this encounter [...] day. 1 twice daily 0 05/26/2016 Active RaNITidine HCl 150 MG CapsuleIndications:Eso phageal reflux Take 1 Cap by mouth at bedtime. 90 Cap 1 01/03/2017 Active venlafaxine (EFFEXOR) 75 MG Tablet Take [...] AT BEDTIME 90 Tab 1 04/17/2017 Active omeprazole (PRILOSEC) 20 MG CPDRIndications:Esopha geal reflux Take 1 Cap by mouth daily. 90 Cap 1 04/17/2017 Active traMADol (ULTRAM) 50 MG TabletIndications:Pain of right lower extremity Take 1 Tab by mouth every 6 hours as needed for Pain. 30 Tab 0 05/11/2017 Active as of this encounter Active Problems [...] disorder Psoriasis Rosacea Hyperlipidemia LDL goal <130 Other chronic sinusitis Blanching Machine Operator's cramp as of this encounter Resolved Problems Problem Noted Date Resolved Date Benign neoplasm of colon 10/15/2010 017 Overview: polyp x1, path shows adenomatous tissue repeat in 5 years Mixed dyslipidemia 04/28/2009 04/28/2009 Dyslipidemia, goal to be determined 04/27/2009 04/28/2009 Overview: Per Lipid Taxonomy. Essential and other specified forms of tremor 12/21/2012 PURE HYPERCHOLESTEROLEM 04/27/20 09 Overview: Per Lipid Taxonomy. as of this encounter Immunizations Name Dates [...] encounter Miscellaneous Notes * Telephone Encounter - Chris Love PA-C - 06/06/2017 8:13 AM EST Spoke with Dr. Mari and Dr. Tejada, at this time, we will continue to follow with conservative treatment without further imaging. PT has been ordered and should be utilized. Please advise if necessary. Thank you. * Telephone Encounter - Dominique Jones, RUTHY - 06/05/2017 4:16 PM EST Spoke with [facility] and cancelled MRI tentatively, since still have denial from insurance. Pt and his are aware of issues and why MRI is cancelled at this time. Will report back to them tomorrow wheni get a response from Dr. Mari * Telephone Encounter - Jeannette Dodd, TECH - 06/05/2017 4:13 PM EST Please advise * Telephone Encounter - Armani Hough MD - 06/05/2017 2:26 PM EST I have no way to call to override the veto. * Telephone Encounter - Francisca Molina RN - 06/05/2017 2:22 PM EST This need to go to the orthopedic dr. I will forward * Telephone Encounter - Dominique Jones, RUTHY - 06/05/2017 2:15 PM EST MRI was denied and needs a peer to peer done by PCP. [address] [place] [address] [place] going hold the patients appt time for tomorrow until 5pm tonight. Please advise as to status of peer to peer. Thanks! * Telephone Encounter - Dominique Jones, RUTHY - 06/05/2017 1:53 PM EST Pt called in asking about status of MRI. On my end it is denied due to medical necessity. I called [facility] to cancel MRI for tomorrow. Patient wants to know the next step now that MRI was denied. Please advise * Telephone Encounter - Jeannette Dodd, TECH - 06/01/2017 3:16 PM EST Jacey from the [address] [place] [address] called to ask about changing the MRI scrpit to a proximal femur, nota pelvis view. Dr. Mari spoke to her on the phone and said he would put in the new order. in this encounter Plan of Treatment Upcoming Encounters Date Type Specialty Care Team Description 06/12/2017 Office Visit Orthopedics Jose Mari DO [address] [place] [address] [phone] 10/16/2017 Office Visit Internal Medicine Armani Hough MD [address] [place] [address] [place] [phone] 01/12/2018 Office Visit Neurology [facility] MD [facility] [place] [address] [phone] Health Maintenance Due Date Last Done Comments COLONOSCOPY-EVERY 3 YRS AGES 18-100 06/03/2019 06/03/2016, 06/03/2016, 10/15/2010 DIABETES SCREEN EVERY 3 YRS- AGE 45 AND ABOVE 09/09/2019 09/08/2016, 06/01/2015, 05/20/2015, Additional history exists LIPID SCREEN EVERY 5 YRS-MEN AGE 35-75 09/08/2021 09/08/2016, 06/01/2015, 05/12/2014, Additional history exists TETANUS EVERY 10 YRS-TDAP (BOOSTRIX/ADACEL) SUGGESTED IF NOT RECEIVED IN PAST 12/12/2021 12/13/2011, 07/06/2006 Influenza Vaccine (FLU shot) Completed 09/2016, 01/15/2016, 03/16/2015, Additional history exists as of this encounter Implants Not on fileas of this encounter Insurance Payer Benefit Plan / Group Subscriber ID Type Phone Address IVETTMaria Del CarmenROBBY ROOTMaria Del CarmenROBBY [id number] as of this encounter
--- OUTSIDE RECORDS SUMMARY | 2023-02-20 21:48 | External Medical Summary | Summary of Care ---
Author Name Unknown Organization [place] [address] Phone Care Team Providers Care Ward Service Supervisor Name Role Phone Armani Hough MD Primary Care Provider Unava ilable Encounter Details Date Type Department Care Team Description 07/04/2017 Scan Encounter Unspecified Department Chris Love PA-C [address] [facility] [place] [id number] <No scans attached> Allergies No Known Allergiesas of this encounter Medications Prescription Sig. Disp. Refills Start Date End Date Status LISINOPRIL 40 MG PO TABS One pill by mouth once a day from [place] 90 Tab 3 12/13/2011 Active TOPROL XL 50 MG PO TB24 One pill by mouth twice a day from [place] 90 Tab 3 12/13/2011 Active VIAGRA 100 [...] Hyperlipidemia LDL goal <130 Other chronic sinusitis Kai Whakaruruhau's cramp as of this encounter Resolved Problems [...] older Yes 05/26/2015 as of this encounter Plan of Treatment Upcoming Encounters Date Type Specialty Care Team Description 10/16/2017 Office Visit Internal Medicine Armani Hough MD [address] [place] [address] [place] [address] 01/12/2018 Office Visit Neurology Lynn Hoover MD 200 [facility] [place] [address] [phone] Health Maintenance Due Date Last Done Comments COLONOSCOPY-EVERY 3 YRS AGES 18-100 06/03/2019 06/03/2016, 06/03/2016, 10/15/2010 DIABETES SCREEN EVERY 3 YRS- AGE 45 AND ABOVE 09/09/2019 09/08/2016, 06/01/2015, 05/20/2015, Additional history exists LIPID SCREEN EVERY 5 YRS-MEN AGE 35-75 09/08/2021 09/08/2016, 06/01/2015, 05/12/2014, Additional history exists DTaP,Tdap,and Td Vaccines (2 - Td) 12/12/2021 12/13/2011, 07/06/2006 Influenza Vaccine (FLU shot) Completed 09/2016, 01/15/2016, 03/16/2015, Additional history exists as of this encounter Implants Not on fileas of this encounter Insurance Payer Benefit Plan / Group Subscriber ID Type Phone Address REBECCA FERNANDEZ [id number] as of this encounter
--- OUTSIDE RECORDS SUMMARY | 2023-02-20 21:48 | External Medical Summary | Summary of Care ---
Author Name Unknown Organization [place] [address] Phone Care Team Providers Care Bottle Packing Machine Cleaner Name Role Phone Armani Hough MD Primary Care Provider Unava ilable Encounter Details Date Type Department Care Team Description 09/27/2017 Orders Only Internal Medicine [address] [address] Armani Hough MD [address] [place] [address] [place] [address] [phone] Allergies No Known Allergiesas of this encounter [...] Hyperlipidemia LDL goal <130 Other chronic sinusitis Airplane First Officer's cramp as of this encounter Resolved Problems Problem Noted Date Resolved Date Benign neoplasm of colon 10/15/2010 12/11/2 017 Overview: polyp x1, path shows adenomatous [...] Office Visit Internal Medicine Armani Hough MD [address] [place] [address] [place] [address] [phone] 01/12/2018 Office Visit Neurology Lynn Hoover MD [address] [place] [address] [phone] 03/08/2018 Office Visit Dermatology Kristy Castellanos MD [address] [place] [address] [phone] Pending Results Name Priority Associated Diagnoses Date/Ti me CHEMISTRY-OUTSIDE Routine 09/11/2017 12:00 AM EDT Health Maintenance Due Date Last [...]
--- OUTSIDE RECORDS SUMMARY | 2023-02-20 21:48 | External Medical Summary | Summary of Care ---
Author Name Unknown Organization [place] [address] Phone Care Team Providers Care Supervisor Veneer Name Role Phone Armani Hough MD Primary Care Provider [phone] Reason for Referral * Evaluate & Treat - Unlimited Visits (Within 10 days (routine)) Status Reason Specialty Diagnoses / Procedures Referred By Contact Referred To Contact Pending Review Specialty Services Required Physical Therapy Diagnoses Avulsion of right hamstring muscle, subsequent encounter Jose Mari DO [address] [facility] [place] [address] Reason for Visit * Reason Comments ADVICE Encounter Details Date Type Department Care Team Description 06/23/2017 Telephone Orthopaedics [facility] [address] [facility] [place] [address] Jose Mari DO [facility] [place] [address] [phone] ADVICE Allergies No Known Allergiesas of this encounter [...] 3 01/10/2017 Active celecoxib (CELEBREX) 200 MG CapsuleIndications:C 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 for pain 30 Cap 5 03/13/2017 Active traZODone (DESYREL) 100 MG TabletIndications:Pe rsistent insomnia TAKE 1/2 TABLET DAILY AT BEDTIME 90 Tab 1 04/17/2017 Active traMADol (ULTRAM) 50 MG TabletIndications:Pa in of right lower extremity Take 1 Tab by mouth every 6 hours as needed for Pain. 30 Tab 0 05/11/2017 Active omeprazole (PRILOSEC) 20 MG CPDRIndications:Esop hageal reflux TAKE 1 CAPSULE ONCE DAILY 1 HOUR BEFORE THE FIRST MEAL OF THE DAY 90 Cap 1 06/15/2017 Active RaNITidine HCl 150 MG CapsuleIndications:E sophageal reflux TAKE 1 CAPSULE AT BEDTIME 90 Cap 1 06/15/2017 Active doxycycline hyclate 100 MG CapsuleIndications:B ronchitis, complicated Take 1 Cap by mouth 2 times a day for 10 days. Until gone. 20 Cap 0 06/13/2017 06/23/2017 as of this encounter Active Problems Problem [...] Hyperlipidemia LDL goal <130 Other chronic sinusitis Wind Up Worker's cramp as of this encounter Resolved [...] encounter Miscellaneous Notes * Telephone Encounter - Jeannette Dodd TECH - 06/28/2017 2:53 PM EST Faxed new PT script to [facility]. * Telephone Encounter - Jose Mari DO - 06/23/2017 5:24 PM EST A new PT order has been done to include b/l hips. Please let [facility] know that they should work on hiships as well. Thank you * Telephone Encounter - Jeannette Dodd TECH - 06/23/2017 4:05 PM EST Please advise this pt. Thank you. in this encounter Plan of Treatment Upcoming Encounters Date Type Specialty Care Team Description 10/16/2017 Office Visit Internal Medicine Armani Hough MD [address] [place] [address] [place] [address] [phone] 01/12/2018 Office Visit Neurology Lynn Hoover MD [address] [place] [address] [place] [address] [phone] Scheduled Referrals Name Priority Associated Diagnoses Order S chedule PHYSICAL THERAPY REFERRAL OP Within 10 days (routine) Avulsion of right hamstring muscle, subsequent encounter Ordered: 06/23/2017 Health Maintenance Due Date Last Done Comments DTaP,Tdap,and Td Vaccines (3 - Td) 06/14/2012 12/13/2011, 07/06/2006 COLONOSCOPY-EVERY 3 YRS AGES 18-100 06/03/2019 06/03/2016, 06/03/2016, 10/15/2010 DIABETES SCREEN EVERY 3 YRS- AGE 45 AND ABOVE 09/09/2019 09/08/2016, 06/01/2015, 05/20/2015, Additional history exists LIPID SCREEN EVERY 5 YRS-MEN AGE 35-75 09/08/2021 09/08/2016, 06/01/2015, 05/12/2014, Additional history exists Influenza Vaccine (FLU shot) Completed 09/2016, 01/15/2016, 03/16/2015, Additional history exists as of this encounter Implants Not on fileas of this encounter Visit Diagnoses Diagnosis Avulsion of right hamstring muscle, subsequent encounter - Primary in this encounter Insurance Payer Benefit Plan / Group Subscriber ID Type Phone Address AETNA AETNA [id number] as of this encounter
--- OUTSIDE RECORDS SUMMARY | 2023-02-20 21:48 | External Medical Summary | Summary of Care ---
Author Name Unknown Organization [place] [address] Phone Care Team Providers Care Front End Web Developer Name Role Phone Armani Hough MD Primary Care Provider [phone] Encounter Details Date Type Department Care Team Description 06/05/2017 Scan Encounter Unspecified Department Chris Love PA-C [address] [facility] [place] [address] [phone] <No scans attached> Allergies No Known Allergiesas of this encounter Medications Prescription Sig. Disp. Refills Start Date End Date Status LISINOPRIL 40 MG PO TABS One pill by mouth once a day from [place] 90 Tab 3 12/13/2011 Active TOPROL XL 50 MG PO TB24 One pill by mouth twice a day from [place] 90 Tab 3 12/13/2011 Active VIAGRA 100 [...] Hyperlipidemia LDL goal <130 Other chronic sinusitis Property Consultant's cramp as of this encounter Resolved Problems [...] Office Visit Internal Medicine Armani Hough MD [address] [place] [address] [place] [address] [phone] 01/12/2018 Office Visit Neurology Lynn Hoover MD [address] [place] [address], [place] [address] [phone] Health Maintenance Due Date Last Done Comments [...] / Group Subscriber ID Type Phone Address IVETTTNA REBECCA [id number] as of this encounter
--- OUTSIDE RECORDS SUMMARY | 2023-02-20 21:48 | External Medical Summary | Summary of Care ---
Author Name Unknown Organization [facility] Address [address] Phone Care Team Providers Care Shingle Grader Name Role Phone Armani Hough MD Primary Care Provider [phone] Reason for Visit * Reason Comments pre-op exam Encounter Details Date Type Department Care Team Description 06/01/2017 Telephone Orthopaedics [facility] [place] [address] Jose Mari, [address] [facility] [place] [address] [phone] pre-op exam Allergies No Known Allergiesas of [...] Hyperlipidemia LDL goal <130 Other chronic sinusitis Animal Cruelty Investigation Supervisor's cramp as of this encounter Resolved Problems [...] encounter Miscellaneous Notes * Telephone Encounter - Dominique Jones, RUTHY - 06/06/2017 9:21 AM EST Pt and his aware he is to continue with physical therapy and come back once complete. * Telephone Encounter - Chris Love PA-C - 06/06/2017 8:13 AM EST Spoke with Dr. Mari and Dr. Tejada, at this time, we will continue to follow with conservative treatment without further imaging. PT has been ordered and should be utilized. Please advise if necessary. Thank you. * Telephone Encounter - Dominique Jones, RUTHY - 06/05/2017 4:16 PM EST Spoke with [facility] and cancelled MRI tentatively, since still have [...] a peer to peer done by PCP. [address] [place] [address] [place] going [place] the patients appt time for tomorrow until 5pm tonight. Please advise as to status of peer to peer. Thanks! * Telephone Encounter - Dominique Jones, RUTHY - 06/05/2017 1:53 PM EST Pt called in asking about status of MRI. On my end it is denied due to medical necessity. I called [facility] to cancel MRI for tomorrow. Patient wants to know the next step now that MRI was denied. Please advise * Telephone Encounter - Jeannette Dodd, TECH - 06/01/2017 3:16 PM EST Jacey from the [address] called to ask about changing the MRI scrpit to a proximal femur, nota pelvis view. Dr. Mari spoke to her on the phone and said he would put in the new order. in this encounter Plan of Treatment Upcoming Encounters Date Type Specialty Care Team Description 06/12/2017 Office Visit Orthopedics Jose Mari DO [address] [place] [address] [phone] 10/16/2017 Office Visit Internal Medicine Armani Hough MD [address] [place] [address] [place] [phone] 01/12/2018 Office Visit Neurology Lynn Hoover MD [address] [place] [address], [place] [address] [phone] Health Maintenance Due Date Last Done Comments [...] Group Subscriber ID Type Phone Address [employer]ET[employer] IVETTROBBY [id number] as of this encounter
--- OUTSIDE RECORDS SUMMARY | 2023-02-20 21:48 | External Medical Summary | Summary of Care ---
Author Name Unknown Organization [place] [address] Phone Care Team Providers Care Anhydrous Ammonia Production Supervisor Name Role Phone Armani Hough MD Primary Care Provider [phone] Reason for Visit * Reason Comments COUGH Encounter Details Date Type Department Care Team Description 06/13/2017 Office Visit Internal Medicine [address] [address] Jannie Carty PA-C [address] [place] [address] [place] [address] [phone] Bronchitis, complicated* Allergies No Known Allergiesas of this encounter Medications Prescription Sig. Disp. Refills Start Date End Date Status LISINOPRIL 40 MG PO TABS One pill by mouth once a day from [place] 90 Tab 3 12/13/2011 Active TOPROL XL [...] 0 05/26/2016 Active RaNITidine HCl 150 MG CapsuleIndications:Es ophageal reflux Take 1 Cap by mouth at bedtime. 90 Cap 1 01/03/2017 Active venlafaxine (EFFEXOR) 75 MG Tablet Take 75 mg by mouth daily. 1 bedtime 0 10/28/2016 Active baclofen (LIORESAL) 10 MG Tablet 1 twice a day 180 Tab 3 01/10/2017 Active celecoxib (CELEBREX) 200 MG CapsuleIndications:Ch ronic bilateral low back pain with left-sided sciatica Take 1 Cap by mouth daily. for pain 30 Cap 5 03/13/2017 Active traZODone (DESYREL) 100 MG TabletIndications:Per sistent insomnia TAKE 1/2 TABLET DAILY AT BEDTIME 90 Tab 1 04/17/2017 Active omeprazole (PRILOSEC) 20 MG CPDRIndications:Esoph ageal reflux Take 1 Cap by mouth daily. 90 Cap 1 04/17/2017 Active traMADol (ULTRAM) 50 MG TabletIndications:Ayan n of right lower extremity Take 1 Tab by mouth every 6 hours as needed for Pain. 30 Tab 0 05/11/2017 Active doxycycline hyclate 100 MG CapsuleIndications:Br onchitis, complicated Take 1 Cap by mouth 2 times a day for 10 days. Until gone. 20 Cap 0 06/13/2017 06/23/2017 Active as of this encounter Active Problems [...] Hyperlipidemia LDL goal <130 Other chronic sinusitis Tire Worker's cramp as of this encounter Resolved [...] Vital Sign Reading Time Taken Blood Pressure 144/82 06/13/2017 8:44 AM EST Pulse 62 06/13/2017 8:44 AM EST Temperature 35.6 C (96 F) 06/13/2017 8:4 4 AM EST Respiratory Rate 16 06/13/2017 8:44 AM EST Oxygen Saturation - - Inhaled Oxygen Concentration - - Weight 98.1 kg (216 lb 4 oz) 06/13/2017 8:44 AM EST Height - - Body Mass Index 31.93 06/13/2017 8:44 AM EST in this encounter Functional Status Functional [...] Progress Notes * Jannie Carty PA-C - 06/13/2017 8:57 AM EST Formatting of this note may be different from the original. Nursing Notes: Tatum Toure LPN 06/13/17 0843 Unsigned Cough for about one month. Pt here today with cough, chest congestion, sputum production for the past month. Pt denies fever, chills, nausea, vomiting, diarrhea, chest pain, SOB, body aches, headache, sinus pain/pressure, nasal/head congestion. Pt has been taking some OTC meds with little relief. Review of patient's allergies indicates: No Known Allergies Current Outpatient Prescriptions Medication Sig Dispense Refill traMADol (ULTRAM) 50 MG Tablet Take 1 Tab by mouth every 6 hours as needed for Pain. 30 Tab 0 traZODone (DESYREL) 100 MG Tablet TAKE 1/2 TABLET DAILY AT BEDTIME 90 Tab 1 omeprazole (PRILOSEC) 20 MG CPDR Take 1 Cap by mouth daily. 90 Cap 1 celecoxib (CELEBREX) 200 MG Capsule Take 1 Cap by mouth daily. for pain 30 Cap 5 venlafaxine (EFFEXOR) 75 MG Tablet Take 75 mg by mouth daily. 1 bedtime 0 baclofen (LIORESAL) 10 MG Tablet 1 twice a day 180 Tab 3 RaNITidine HCl 150 MG Capsule Take 1 Cap by mouth at bedtime. 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 rate 16, weight 98.1 kg (216 lb 4 oz). GENERAL: alert, no distress, well nourished and well developed NECK: supple, no adenopathy EYES: PERRLA, Conjunctiva are pink and non-injected, sclera clear EARS: External ears normal, Canals clear, TM's Normal NOSE: no mucosal erythema, no mucosal edema, no purulent discharge, no septal hematoma OROPHARYNX: no exudate, no erythema, lips, buccal mucosa, and tongue normal and mucous membranes are moist HEART: regular rate & rhythm, no murmurs and no gallops LUNGS: chest symmetric with normal AP diameter, no chest deformities noted, no chest wall tenderness, lungs clear to auscultation A:[id number] Bronchitis, complicated (primary encounter diagnosis) Plan: Doxycycline hyclate 100 mg po caps Sig:Take 1 cap by mouth 2 times a day for 10 days. until gone. Start above med. Rest, fluids. Pt doesn't want chest xray, at this time. Any questions/problems, please call. Follow up: Return if symptoms worsen or fail to improve. Jannie Carty PA-C in this encounter Nursing Notes * Tatum Toure LPN - 06/13/2017 8:42 AM EST Cough for about one month. in this encounter Plan of Treatment Upcoming Encounters Date Type Specialty Care Team Description 10/16/2017 Office Visit Internal Medicine Armani Hough MD [address] [place] [address] [place] [address] [phone] 01/12/2018 Office Visit Neurology Lynn Hoover MD [address] [place] [address] [place] [address] [phone] Health Maintenance Due Date Last Done Comments [...] fileas of this encounter Visit Diagnoses Diagnosis Bronchitis, complicated - Pr imary Bronchitis, not specified as acute or chronic in this encounter Insurance Payer Benefit Plan / Group Subscriber ID Type Phone Address AETNA AETNA [id number] as of this encounter
--- OUTSIDE RECORDS SUMMARY | 2023-02-20 21:48 | External Medical Summary | Summary of Care ---
Author Name Unknown Organization [place] [address] Phone Care Team Providers Care Driller Brake Lining Name Role Phone Armani Hough MD Primary Care Provider [phone] Reason for Visit * Reason Comments pre-op exam Encounter Details Date Type Department Care Team Description 06/01/2017 Telephone Orthopaedics [facility] 132 [facility] [place] [address] Jose Mari, [address] [facility] [place] [address] [phone] pre-op exam Allergies No Known Allergiesas of this encounter Medications Prescription Sig. Disp. Refills Start Date End Date Status LISINOPRIL 40 MG PO TABS One pill by mouth once a day from [place] 90 Tab 3 12/13/2011 Active TOPROL XL 50 MG PO TB24 One pill by mouth twice a day from [place] 90 Tab 3 12/13/2011 Active VIAGRA 100 [...] Hyperlipidemia LDL goal <130 Other chronic sinusitis Physical Damage Appraiser's cramp as of this encounter Resolved Problems [...] - 06/05/2017 4:16 PM EST Spoke with [facility] and cancelled MRI tentatively, since still have [...] a peer to peer done by PCP. [address] [place] [address] in [place] is going hold the patients appt time for tomorrow until 5pm tonight. Please advise as to status of peer to peer. Thanks! * Telephone Encounter - Dominique Jones, RUTHY - 06/05/2017 1:53 PM EST Pt called in asking about status of MRI. On my end it is denied due to medical necessity. I called [facility] to cancel MRI for tomorrow. Patient wants to know the next step now that MRI was denied. Please advise * Telephone Encounter - Jeannette Dodd, TECH - 06/01/2017 3:16 PM EST Jacey from the [address] [place] [address] called to ask about changing the MRI scrpit to a proximal femur, nota pelvis view. Dr. Mari spoke to her on the phone and said he would put in the new order. in this encounter Plan of Treatment Upcoming Encounters Date Type Specialty Care Team Description 06/12/2017 Office Visit Orthopedics Jose Mari DO [address] [place] [address] [place] [address] [phone] 10/16/2017 Office Visit Internal Medicine Armani Hough MD [address] [place] [address] [place] [address] [phone] 01/12/2018 Office Visit Neurology Lynn Hoover MD 200 [facility] [place] [address] [phone] Health Maintenance Due Date Last Done Comments [...] Subscriber ID Type Phone Address REBECCA FERNANDEZ [id number] as of this encounter
--- OUTSIDE RECORDS SUMMARY | 2023-02-20 21:48 | External Medical Summary | Summary of Care ---
Author Name Unknown Organization [place] [address] Phone Care Team Providers Care Sound Effects Supervisor Name Role Phone Armani Hough MD Primary Care Provider Unava ilable Reason for Visit * Reason Comments Medical Records Request Encounter Details Date Type Department Care Team Description 09/22/2017 Telephone Gastroenterology, [facility] 132 [facility] [place] [address] Antoinette Godinez MD 132 [place] [address] [phone] Medical Records Request Allergies No Known Allergiesas of this encounter [...] Hyperlipidemia LDL goal <130 Other chronic sinusitis 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 Forwarded to [facility] in this encounter Plan of Treatment Upcoming Encounters Date Type Specialty Care Team Description 10/16/2017 Office Visit Internal Medicine Armani Hough MD [address] [place] [address] [place] [address] 01/12/2018 Office Visit Neurology Lynn Hoover MD 200 [place] [address] [phone] Health Maintenance Due Date Last Done Comments [...]
--- OUTSIDE RECORDS SUMMARY | 2023-02-20 21:48 | External Medical Summary | Summary of Care ---
Author Name Unknown Organization [place] [address] Phone Care Team Providers Care Horseradish Maker Name Role Phone Armani Arreguin MD Primary Care Provider [phone] Reason for Visit * Reason Comments eRx-Medication Refill Encounter Details Date Type Department Care Team Description 06/15/2017 Refill Internal Medicine [address] [address] Armani Arreguin MD [address] [place], [place] [address] [address] [phone] Esophageal reflux Allergies No Known Allergiesas of [...] 0 05/11/2017 Active doxycycline hyclate 100 MG CapsuleIndications :Bronchitis, complicated Take 1 Cap by mouth 2 times a day for 10 days. Until gone. 20 Cap 0 06/13/2017 06/23/2017 Active omeprazole (PRILOSEC) 20 MG CPDRIndications:Es ophageal reflux TAKE 1 CAPSULE ONCE DAILY 1 HOUR BEFORE THE FIRST MEAL OF THE DAY 90 Cap 1 06/15/2017 Active RaNITidine HCl 150 MG CapsuleIndications :Esophageal reflux TAKE 1 CAPSULE AT BEDTIME 90 Cap 1 06/15/2017 Active RaNITidine HCl 150 MG CapsuleIndications :Esophageal reflux Take 1 Cap by mouth at bedtime. 90 Cap 1 01/03/2017 06/15/2017 Discontinued omeprazole (PRILOSEC) 20 MG CPDRIndications:Es ophageal reflux Take 1 Cap by mouth daily. 90 Cap 1 04/17/2017 06/15/2017 Discontinued as of this encounter Active Problems [...] Hyperlipidemia LDL goal <130 Other chronic sinusitis Security Attendant's cramp as of this encounter Resolved Problems [...] Telephone Encounter - Armani Arreguin MD - 06/15/2017 2:42 PM EST Signed Prescriptions: Disp Refills omeprazole (PRILOSEC) 20 MG CPDR 90 Cap 1 Sig: TAKE 1 CAPSULE ONCE DAILY 1 HOUR BEFORE THE FIRST MEAL OF THE DAY Authorizing Provider: ARMANI ARREGUIN RaNITidine HCl 150 MG Capsule 90 Cap 1 Sig: TAKE 1 CAPSULE AT BEDTIME Authorizing Provider: ARMANI ARREGUIN * Telephone Encounter - Hayley Tariq LPN - 06/15/2017 2:28 PM EST Pending Prescriptions: Disp Refills omeprazole (PRILOSEC) 20 MG CPDR [Pharmac*90 Cap 1 Sig: TAKE 1 CAPSULE ONCE DAILY 1 HOUR BEFORE THE FIRST MEAL OF THE DAY RaNITidine HCl 150 MG Capsule [Pharmacy M*90 Cap 1 Sig: TAKE 1 CAPSULE AT BEDTIME * Telephone Encounter - Hayley Tariq LPN - 06/15/2017 2:11 PM EST Pending Prescriptions: Disp Refills omeprazole (PRILOSEC) 20 MG CPDR [Pharmac*90 Cap 1 Sig: TAKE 1 CAPSULE ONCE DAILY 1 HOUR BEFORE THE FIRST MEAL OF THE DAY RaNITidine HCl 150 MG Capsule [Pharmacy M*90 Cap 1 Sig: TAKE 1 CAPSULE AT BEDTIME Last Office Visit: 06/13/2017 Next Office Visit: 10/16/2017 Scheduled Provider(s): Armani Arreguin MD Lr 8-29-17 in this encounter Plan of Treatment Upcoming Encounters Date Type Specialty Care Team Description 10/16/2017 Office Visit Internal Medicine Armani Arreguin MD [address] [place] [address] [place] [address] [phone] 01/12/2018 Office Visit Neurology Lynn Hoover MD 200 [facility] [place] [address] [phone] Health Maintenance Due Date Last Done Comments [...] Diagnoses Diagnosis Esophageal reflux in this encounter Insurance Payer Benefit Plan / Group Subscriber ID Type Phone Address AETNA AETNA [id number] as of this encounter
--- OUTSIDE RECORDS SUMMARY | 2023-02-20 21:48 | External Medical Summary | Summary of Care ---
Author Name Unknown Organization [place] [address] Phone Care Team Providers Care Public Speaking Teacher Name Role Phone Armani Hough MD Primary Care Provider [phone] Reason for Referral * Evaluate & Treat - Unlimited Visits (Within 10 days (routine)) Status Reason Specialty Diagnoses / Procedures Referred By Contact Referred To Contact Pending Review Specialty Services Required Physical Therapy Diagnoses Avulsion of right hamstring muscle, subsequent encounter Jose Mari DO [address] [facility] [place] [address] Reason for Visit * Reason Comments ADVICE Encounter Details Date Type Department Care Team Description 06/23/[address] 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 Please let Cuong know that they should work on hiships as well. Thank you * Telephone Encounter - Jaennette Dodd TECH - 06/23/2017 4:05 PM EST Please advise this pt. Thank you. in this encounter Plan of Treatment Upcoming Encounters Date Type Specialty Care Team Description 10/16/2017 Office Visit Internal Medicine Armani Hough MD [address] [place] [address] [place] [address] [phone] 01/12/2018 Office Visit Neurology Lynn Hoover MD [address] [place] [address] [place] [address] [phone] Scheduled Referrals Name Priority Associated Diagnoses Order S chedule PHYSICAL THERAPY REFERRAL OP Within 10 days (routine) Avulsion of right hamstring muscle, subsequent encounter Ordered: 06/23/2017 Health Maintenance Due Date Last Done Comments DTaP,Tdap,and Td Vaccines (1 - Tdap) 1962 COLONOSCOPY-EVERY 3 YRS AGES 18-100 06/03/2019 06/03/2016, [...] Group Subscriber ID Type Phone Address AETNA PENDING SALE TO [facility] [id number] as of this encounter
--- OUTSIDE RECORDS SUMMARY | 2023-02-20 21:48 | External Medical Summary | Summary of Care ---
Author Name Unknown Organization [place] [address] Phone Care Team Providers Care Barker Peeler Name Role Phone Armani Hough MD Primary Care Provider [phone] Reason for Visit * Reason Comments pre-op exam Encounter Details Date Type Department Care Team Description 06/01/2017 Telephone Orthopaedics [facility] 132 [facility] [place] [address] Jose Mari, [address] [facility] [place] [address] [phone] pre-op exam Allergies No Known Allergiesas of [...] Hyperlipidemia LDL goal <130 Other chronic sinusitis Flatwork Ironer's cramp as of this encounter Resolved Problems [...] - 06/05/2017 4:16 PM EST Spoke with [facility] and cancelled MRI tentatively, since still [...] a peer to peer done by PCP. [address] [place] [address] in [place] is going hold the patients appt time for tomorrow until 5pm tonight. Please advise as to status of peer to peer. Thanks! * Telephone Encounter - Dominique Jones, RUTHY - 06/05/2017 1:53 PM EST Pt called in asking about status of MRI. On my end it is denied due to medical necessity. I called [facility] to cancel MRI for tomorrow. Patient wants to know the next step now that MRI was denied. Please advise * Telephone Encounter - Jeannette Dodd, TECH - 06/01/2017 3:16 PM EST Jacey from the [address] [place] [address] called to ask about changing the MRI scrpit to a proximal femur, nota pelvis view. Dr. Mari spoke to her on the phone and said he would put in the new order. in this encounter Plan of Treatment Upcoming Encounters Date Type Specialty Care Team Description 06/12/2017 Office Visit Orthopedics Jose Mari DO [address] [place] [address] [place] [address] [phone] 10/16/2017 Office Visit Internal Medicine Aramni Hough MD [address] [place] [address] [place] [address] [phone] 01/12/2018 Office Visit Neurology Lynn Hoover MD 200 [facility] [place] [address] [phone] Health Maintenance Due Date Last Done Comments [...] Subscriber ID Type Phone Address REBECCA FERNANDEZ [id number] as of this encounter
--- OUTSIDE RECORDS SUMMARY | 2023-02-20 21:49 | External Medical Summary | Summary of Care ---
Author Name Unknown Organization [place] [address] Phone Care Team Providers Care Production Cost Estimator Name Role Phone Armani Hough MD Primary Care Provider [phone] Reason for Visit * Reason Comments APPOINTMENT MRI Encounter Details Date Type Department Care Team Description 05/12/2017 Telephone Internal Medicine [address] [address] Jannie Carty PA-C [address] [place] [address] [place] [address] [phone] APPOINTMENT (MRI ) Allergies Active Allergy Reactions Severity Noted Date Comments Potassium 01/23/2001 hives as of this encounter Medications Prescription Sig. Disp. [...] 0 05/26/2016 Active RaNITidine HCl 150 MG CapsuleIndications:E sophageal reflux Take 1 Cap by mouth at [...] 1 04/17/2017 Active omeprazole (PRILOSEC) 20 MG CPDRIndications:Esop hageal reflux Take 1 Cap by mouth daily. 90 Cap 1 04/17/2017 Active traMADol (ULTRAM) 50 MG TabletIndications:Pa in of right lower extremity Take 1 Tab by mouth every 6 hours as needed for Pain. 30 Tab 0 05/11/2017 Active Promethazine-Codeine 6.25-10 MG/5ML syrupIndications:Vir al URI with cough Take 5 mL by mouth 4 times a day as needed for Cough for up to 10 days. 120 mL 1 05/02/2017 05/12/2017 PredniSONE (DELTASONE) 20 MG TabletIndications:Pa in of right lower extremity Take 2 Tabs by mouth daily for 5 days. 10 Tab 0 05/11/2017 05/16/2017 as of this encounter Active Problems Problem Noted Date Persistent insomnia 06/22/2015 History of basal cell [...] Hyperlipidemia LDL goal <130 Other chronic sinusitis Integrated Circuits Inspector's cramp as of this encounter Resolved Problems [...] encounter Miscellaneous Notes * Telephone Encounter - Jannie Carty PA-C - 05/18/2017 11:11 AM EST Please call pt. MRI denied. We can order a CT scan to see if this shows anything. Does he want to do this? * Telephone Encounter - Vielka Eller LPN - 05/18/2017 9:57 AM EST Brock calling from [employer] prior auth and MRI has been denied. They denied due to muscle, belly strain or tear are not covered. Doctor can do a peer to peer by calling opt 4 then opt 2. Ref# [id number]. * Telephone Encounter - Margaret Vidales, RUTHY - 05/17/2017 8:39 AM EST Auth is still pending review * Telephone Encounter - Margaret Vidales, RUTHY - 05/16/2017 3:26 PM EST I just checked on auth for MRI - it is in pending. * Telephone Encounter - Margaret Vidales, RUTHY - 05/16/2017 8:54 AM EST I have not received an auth from pre cert yet, so I called patient to schedule him at [facility] without the pre cert auth, and he told me today now that he needs to have an open MRI and would like that at [facility]. I sent pre cert another stat message today to get the authorization so this can be scheduled. * Telephone Encounter - Margaret Vidales OSA - 05/12/2017 9:48 AM EST I sent a high priority message to pre cert team for authorization to schedule a MRI for pt. in this encounter Plan of Treatment Upcoming Encounters Date Type Specialty Care Team Description 10/16/2017 Office Visit Internal Medicine Armani Hough MD [address] [place] [address] [place] [address] [phone] 01/12/2018 Office Visit Neurology Lynn Hoover MD [address] [place] [address], [place] [address] [phone] Health Maintenance Due Date Last Done Comments [...] Subscriber ID Type Phone Address REBECCA FERNANDEZ [id number] as of this encounter
--- OUTSIDE RECORDS SUMMARY | 2023-02-20 21:49 | External Medical Summary | Summary of Care ---
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 MRI denied. We can order a CT scan to see if this shows anything. Does he want to do this? * Telephone Encounter - Vielka Eller LPN - 05/18/2017 9:57 AM EST Brock calling from [employer] prior auth and MRI has been denied. They denied due to muscle, belly strain or tear are not covered. Doctor can do a peer to peer by calling opt 4 then opt 2. Ref# [id number]. * Telephone Encounter - Margaret Vidales, RUTHY [...] I called patient to schedule him at [facility] without the pre cert auth, and he told me today now that he needs to have an open MRI and would like that at [facility]. I sent pre cert another stat message today to get the authorization so this can be scheduled. * Telephone Encounter - Margaret Vidales, RUTHY - 05/12/2017 9:48 AM EST I sent a high priority message to pre cert team for authorization to schedule a MRI for pt. in this encounter Plan of Treatment Upcoming Encounters Date Type Specialty Care Team Description 10/16/2017 Office Visit Internal Medicine Armani Hough MD [address] [place] [address] [place] [address] [phone] 01/12/2018 Office Visit Neurology Lynn Hoover MD [facility] [place] [address] [phone] Health Maintenance Due Date Last Done Comments [...] Group Subscriber ID Type Phone Address AET[employer] REBECCA [id number] as of this encounter
--- OUTSIDE RECORDS SUMMARY | 2023-02-20 21:49 | External Medical Summary | Summary of Care ---
Author Name Unknown Organization [place] [address] Phone Care Team Providers Care Account Development Associate Name Role Phone Armani Hough MD Primary Care Provider [phone] Reason for Visit * Reason Comments APPOINTMENT MRI Encounter Details Date Type Department Care Team Description 05/12/2017 Telephone Internal Medicine [address] [address] Jannie Carty PA-C [address] [place] [address] [place] [address] [phone] APPOINTMENT (MRI ) Allergies Active Allergy Reactions [...] Hyperlipidemia LDL goal <130 Other chronic sinusitis Lead Oracle Developer's cramp as of this encounter Resolved Problems [...] encounter Miscellaneous Notes * Telephone Encounter - Vielka Eller LPN - 05/18/2017 9:57 AM EST Brock calling from [employer] prior auth and MRI has been denied. They denied due to muscle, belly strain or tear are not covered. Doctor can do a peer to peer by calling opt 4 then opt 2. Ref# [id number]. * Telephone Encounter - Margaret Vidales, RUTHY [...] I called patient to schedule him at [facility] without the pre cert auth, and he told me today now that he needs to have an open MRI and would like that at [facility]. I sent pre cert another stat message [...] Office Visit Internal Medicine Armani Hough MD [address] [place] [address] [place] [address] [phone] 01/12/2018 Office Visit Neurology Lynn Hoover MD [address] [place] [address] [place] [address] [phone] Health Maintenance Due Date Last Done Comments [...] / Group Subscriber ID Type Phone Address REBCECA FERNANDEZ [id number] as of this encounter
--- OUTSIDE RECORDS SUMMARY | 2023-02-20 21:49 | External Medical Summary | Summary of Care ---
Author Name Unknown Organization [place] [address] Phone Care Team Providers Care Blind Slat Stapling Machine Operator Name Role Phone Armani Hough MD Primary Care Provider [phone] Reason for Visit * Reason Comments Pre Cert/Prior Auth Encounter Details Date Type Department Care Team Description 05/22/2017 Telephone Internal Medicine [address] [address] Jannie Carty PA-C [address] [place] [address] [place] [address] [phone] Pre Cert/Prior Auth Allergies Active Allergy Reactions Severity Noted Date [...] Hyperlipidemia LDL goal <130 Other chronic sinusitis Firearms Inspector's cramp as of this encounter Resolved [...] encounter Miscellaneous Notes * Telephone Encounter - Silvia Blackburn OSA - 05/22/2017 9:[address] Hough, Please notify the patient of the denial Please be advised that the [id number] - MR FEMUR NO JOINT WITH WITHOUT IV CONTRAST that you orderedfor [facility] Guillermo has been denied after clinical review because Not medically necessary. Please call Medical Review at [phone] and refer to tracking number [id number] to complete a peer to peer review within 2 business days or the request will be withdrawn automatically and considered denied. If the peer review is not completed the patient will be required to sign an ABN accepting full financial responsibility for the test. If you do not wish to have the test performed, please cancel the order in EPIC, and advised the patient of an alternate plan. If you have any questions please feel free to contact me. Thank You, RUTHY Jama in this encounter Plan of Treatment Upcoming Encounters Date Type Specialty Care Team Description 05/26/2017 Imaging Radiology [id number] 132 [facility] [place] [address] [phone] 10/16/2017 Office Visit Internal Medicine Armani Hough MD [address] [place] [address] [place] [address] [phone] 01/12/2018 Office Visit Neurology Lynn Hoover MD 200 [facility] [place] [address] [phone] Health Maintenance Due Date Last Done Comments [...] Subscriber ID Type Phone Address AETNA AETNA [id number] as of this encounter
--- OUTSIDE RECORDS SUMMARY | 2023-02-20 21:49 | External Medical Summary | Summary of Care ---
Author Name Unknown Organization [place] [address] Phone Care Team Providers Care Metalworker Name Role Phone Armani Hough MD Primary Care Provider [phone] Reason for Visit * Reason Comments pre-op exam Encounter Details Date Type Department Care Team Description 06/01/2017 Telephone Orthopaedics [facility] 132 [facility] [place] [address] Jose Mari, [address] [facility] [place] [address] [phone] pre-op exam Allergies No Known Allergiesas of [...] Hyperlipidemia LDL goal <130 Other chronic sinusitis Nuclear Design Engineer's cramp as of this encounter Resolved Problems [...] Miscellaneous Notes * Telephone Encounter - Jeannette Dodd, TECH [...] peer to peer done by PCP. [address] [place] [address] in [place] is going hold the patients appt time for tomorrow until 5pm tonight. Please advise as to status of peer to peer. Thanks! * Telephone Encounter - Dominique Jones, RUTHY - 06/05/2017 1:53 PM EST Pt called in asking about status of MRI. On my end it is denied due to medical necessity. I called [facility] to cancel MRI for tomorrow. Patient wants to know the next step now that MRI was denied. Please advise * Telephone Encounter - Jeannette Dodd, TECH - 06/01/2017 3:16 PM EST Jacey from the [address] [place] [address] called to ask about changing the MRI scrpit to a proximal femur, nota pelvis view. Dr. Mari spoke to her on the phone and said he would put in the new order. in this encounter Plan of Treatment Upcoming Encounters Date Type Specialty Care Team Description 06/12/2017 Office Visit Orthopedics Jose Mari DO 132 [place] [address] [phone] 10/16/2017 Office Visit Internal Medicine Armani Hough MD [address] [place] [address] [place] [address] [phone] 01/12/2018 Office Visit Neurology Lynn Hoover MD 200 [facility] [place] [address] [phone] Health Maintenance Due Date Last Done Comments [...] Subscriber ID Type Phone Address AETNA AETNA [id number] as of this encounter
--- OUTSIDE RECORDS SUMMARY | 2023-02-20 21:49 | External Medical Summary | Summary of Care ---
Author Name Unknown Organization [place] [address] Phone Care Team Providers Care Transport Tech Name Role Phone Armani Hough MD Primary Care Provider [phone] Reason for Referral * Precert (Routine) Status Reason Specialty Diagnoses / Procedures Referred By Contact Referred To Contact Pending Review Precert Radiology Diagnoses Avulsion of hamstring muscle, right, initial encounter Procedures HIP MRI W/O CONTRAST Chris Love PA-C [address] [place] [address] * Evaluate & Treat - Unlimited Visits (Within 10 days (routine)) Status Reason Specialty Diagnoses / Procedures Referred By Contact Referred To Contact Pending Review Specialty Services Required Physical Therapy Diagnoses Avulsion of hamstring muscle, right, initial encounter Chris Love PA-C [address] [place] [address] Reason for Visit * Reason Comments NEW PATIENT * Evaluate & Treat - Unlimited Visits (Within 10 days (routine)) Status Reason Specialty Diagnoses / Procedures Referred By Contact Referred To Contact Pending Review Specialty Services Required Orthopaedic Surgery Diagnoses Hamstring tendon rupture, right, initial encounter Jannie Carty PA-C [address] [place] [address] [place] [address] Encounter Details Date Type Department Care Team Description 05/30/[address] [facility] [address] [employer] [place] [address] Jacey Jose, DO [address] [place] [address] [phone] Avulsion of hamstring muscle, right, initial encounter* Allergies No Known Allergiesas of this encounter [...] Hyperlipidemia LDL goal <130 Other chronic sinusitis Retouching Operator's cramp as of this encounter Resolved [...] Vital Sign Reading Time Taken Blood Pressure - - Pulse - - Temperature - - Respiratory Rate - - Oxygen Saturation - - Inhaled Oxygen Concentration - - Weight 97.6 kg (215 lb 1.6 oz) 05/30/19 18 9:25 AM EST Height 175.3 cm (5' 9") 05/30/2017 9:25 AM EST Body Mass Index 31.76 05/30/2017 9:25 AM EST in this encounter Functional Status [...] as of this encounter Progress Notes * Chris Love PA-C - 05/30/2017 9:43 AM EST Formatting of this note may be different from the original. Cc: Right hamstring pain and weakness HPI: 61 y/o male c/o right hamstring injury. Reports walking in the [place] on flat ground with spontaneous pain in the right proximal hamstring. Denies a pop or tearing sound. Admits to advanced bruising throughout the hamstring and buttock. Reports pain and weakness slowly improving but certainly still present. There are certain elective activities he finds it difficult to perform, such as running. Denies a prior h/o hamstring injury. No numbness or tingling distally. Denies calf pain. Nursing Notes: JARAD Perales 05/30/17 0926 Signed Pt present for right hamstring tendon Today's Vitals: Ht 5' 9" (1.753m) | Wt 215 lbs 1.6 oz (97.569kg) | BMI 31.76 kg/m | BSA 2.18 m Review of patient's allergies indicates: No Known Allergies Review of Systems Complete review of systems negative Physical Exam General: A&O X 3, NAD, pleasant, appears currently stated age Skin: Right hamstring/buttocks/lower extremity does not reveal ecchymosis, erythema, swelling, abrasions, lacerations, skin breakdown Neurovascular: Right lower extremity reveals good sensation with light touch, toes freely mobile, +5 strength with dorsi and plantar flexion, calf supple non-tender Musculoskeletal: Right lower extremity, including hip, knee, and ankle. Ankle, knee, hip reveal full range of motion. Patient has strength 4/5 with flexion of the knee and isolated hamstring testing.He has some mild pain with this but nothing significant and reports improvement in both strength and pain. No palpable mass or deformity at the hamstring proximally, mid-body, or distally. Deep palpation at the injury site of the proximal hamstring does not reveal any type of significant tenderness, mild at best. Mild antalgic gait. X-rays:IMPRESSION 1. Mild osteoarthrosis right hip. 2. There is a rim of calcification at the left hip which may reflect chondrocalcinosis or labral calcification. 3. There are small deposits of calcific tendinopathy at the greater trochanter of both hips. CT scan: IMPRESSION 1. Complete avulsion of the right hamstring tendon origin. 2. Mild right hip osteoarthritis. 3. Calcific tendinitis at the right gluteus medius insertion. Current Outpatient Prescriptions Medication Sig Dispense Refill [...] a day from NC 90 Tab 3 Past Medical History: 10/15/10: Benign neoplasm of colon Comment: polyp x1, path shows adenomatous tissue repeat in 5 years No date: Dyslipidemia, goal LDL below 160 09/08/2016: Encounter for hepatitis C screening test for l* Comment: negative No date: Esophageal reflux No date: Essential and other specified forms of tremor No date: Generalized anxiety disorder 09/08/2016: Hepatitis A antibody positive No date: HTN, goal below 140/90 No date: Impotence of organic origin 07/27/01: Inflamed seborrheic keratosis Comment: cryosurgery by Dr Victoria No date: Major depressive disorder, single episode, mod* No date: Other chronic sinusitis No date: Other psoriasis No date: Raynaud's syndrome No date: Rosacea 05/26/2017: Rupture of hamstring tendon Comment: right No date: Retouching Operator's cramp Patient Active Problem List Diagnosis Code Essential hypertension with goal blood pressure less than 140/90 I10 Tobacco use disorder F17.200 Esophageal reflux K21.9 Psoriasis L40.9 Rosacea L71.9 IMPOTENCE, 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 GENERALIZED ANXIETY DIS F41.1 Major depressive disorder, single episode, moderate (HCC) F32.1 ADVANCE DIRECTIVE INFORMATION Raynaud's syndrome I73.00 Hyperlipidemia LDL goal <130 E78.5 Other chronic sinusitis J32.8 Retouching Operator's cramp F48.8 History of squamous cell carcinoma Z85.89 History of basal cell carcinoma Z85.828 Persistent insomnia G47.00 Rupture of hamstring tendon S76.319A Past Surgical History: Procedure Laterality Date COLONOSCOPY W/ LESION REMOVAL, SNARE 10/15/2010 polyp x1, path shows adenomatous tissue repeat in 5 years COLONOSCOPY W/ LESION REMOVAL, SNARE N/A 06/03/2016 7,6,2 mm polyps ascending, 6,3 mm polyps transverse colon Repeat 3 years COLONOSCOPY, DIAGNOSTIC (RECTUM) 06/03/2016 adenomatous polyp, repeat 3 yrs/COLONOSCOPY FLEXIBLE PROXIMAL DIAGNOSTIC performed by Antoinette Godinez MD at ENDOSCOPY [facility] CT LOWER EX W CONT Right 05/26/2017 complete avulsion right hamstring tendon with 3 cm gap, mild hip arthritis, calcific tendonitis right gluteus medius CT-SINUSES WO CONTRAST 10/09/09 chronic sinusitis MRI C SPINE W CONT 03/10/14 severe bilateral foramen narrowing L3-4, L4-5, L5-S1 and severe left neural foramen narrowing L2-3 US - ABDOMEN, LIMITED 05/30/12 normal, no kidney stones Impression: Right proximal hamstring avulsion Plan: Today's findings discussed with the patient. He was educated regarding his current diagnosis. Multiple treatment options discussed and we would like to proceed with an MRI to characterize the injury. There is a chance if his injury is one versus two hamstring involvement it would change his treatment from conservative to invasive. In the meantime, formal physical therapy was prescribed. Anorder was placed. Continue with gentle activity as tolerated. Avoid heavy strenuous use of the right lower extremity. Has no other questions or concerns. Pleased with today's care. Call sooner if needed. Chris Love PA-C 05/30/2017 9:44 AM I performed a history and physical examination of the patient. I have discussed the patient's management with patient and [place]. Please refer to the note/dictation for the documented findings and plan of care. Discussed nonop versus operative management and at this time patient agrees to nonop management. Given his age and his low activity level I do think nonoperative management would suffice even though he could see some weakness compared to the contralateral side. I did discuss if he was very active (i.e. Golf, rides attendant) I would recommend surgical intervention, but studies have shown that good outcomes are seen with surgical intervention for young, active individuals whereas in his case nonopvs op management shows no difference. We will get him into physical therapy and reassess him after 6 weeks. Jose Mari D.O. [facility] Orthopaedic Surgery, Shoulder/Elbow in this encounter Nursing Notes * Jeannette Dodd TECH - 05/30/2017 9:21 AM EST Pt present for right hamstring tendon in this encounter Plan of Treatment Upcoming Encounters Date Type Specialty Care Team Description 10/16/2017 Office Visit Internal Medicine Armani Hough MD [address] [place] [address] [place] [address] [phone] 01/12/2018 Office Visit Neurology Lynn Hoover MD 200 [facility] [place] [address] [phone] Scheduled Tests Name Priority Associated Diagnoses Order S chedule HIP MRI W/O CONTRAST Routine Avulsion of hamstring muscle, right, initial encounter Ordered: 05/30/2017 Scheduled Referrals Name Priority Associated Diagnoses Order S chedule PHYSICAL THERAPY REFERRAL OP Within 10 days (routine) Avulsion of hamstring muscle, right, initial encounter Ordered: 05/30/2017 Health Maintenance Due Date Last Done Comments [...] this encounter Visit Diagnoses Diagnosis Avulsion of hamstring muscle , right, initial encounter - Primary in this encounter Insurance Payer Benefit Plan / Group Subscriber ID Type Phone Address AETNA AETNA [id number] as of this encounter
--- OUTSIDE RECORDS SUMMARY | 2023-02-20 21:49 | External Medical Summary | Summary of Care ---
Author Name Unknown Organization [place] [address] Phone Care Team Providers Care Depot Agent Name Role Phone Armani Hough MD Primary Care Provider [phone] Reason for Visit * Reason Comments pre-op exam Encounter Details Date Type Department Care Team Description 06/01/2017 Telephone Orthopaedics [facility] 132 [facility] [place] [address] Jose Mari, [address] [facility] [place] [address] [phone] pre-op exam Allergies No Known Allergiesas of this encounter Medications Prescription Sig. Disp. Refills Start Date End Date Status LISINOPRIL 40 MG PO TABS One pill by mouth once a day from ME 90 Tab 3 12/13/2011 Active TOPROL XL 50 MG PO TB24 One pill by mouth twice a day from ME 90 Tab 3 12/13/2011 Active VIAGRA 100 [...] Hyperlipidemia LDL goal <130 Other chronic sinusitis Ichthyologist's cramp as of this encounter Resolved Problems [...] Miscellaneous Notes * Telephone Encounter - Armani Hough MD - 06/05/2017 2:26 PM EST I have no way to call to override the veto. * Telephone Encounter - Francisca Mloina RN - 06/05/2017 2:22 PM EST This need to go to the orthopedic dr. I will forward * Telephone Encounter - Dominique Jones, RUTHY - 06/05/2017 2:15 PM EST MRI was denied and needs a peer to peer done by PCP. [address] [place] [address] in [place] is going hold the patients appt time for tomorrow until 5pm tonight. Please advise as to status of peer to peer. Thanks! * Telephone Encounter - Dominique Jones, RUTHY - 06/05/2017 1:53 PM EST Pt called in asking about status of MRI. On my end it is denied due to medical necessity. I called [facility] to cancel MRI for tomorrow. Patient wants to know the next step now that MRI was denied. Please advise * Telephone Encounter - Jeannette Dodd TECH - 06/01/2017 3:16 PM EST Jacey from the [address] [place] [address] called to ask about changing the MRI scrpit to a proximal femur, nota pelvis view. Dr. Mari spoke to her on the phone and said he would put in the new order. in this encounter Plan of Treatment Upcoming Encounters Date Type Specialty Care Team Description 06/12/2017 Office Visit Orthopedics Jose Mari, 132 [facility] [place] [address] [phone] 10/16/2017 Office Visit Internal Medicine Armani Hough MD [address] [place] [address] [place] [address] [phone] 01/12/2018 Office Visit Neurology Lynn Hoover MD 200 [facility] [place] [address] [phone] Health Maintenance Due Date Last Done Comments [...] Subscriber ID Type Phone Address REBECCA FERNANDEZ [id number] as of this encounter
--- OUTSIDE RECORDS SUMMARY | 2023-02-20 21:49 | External Medical Summary | Summary of Care ---
Author Name Unknown Organization [place] [address] Phone Care Team Providers Care Lending Advisor Name Role Phone Armani Hough MD Primary Care Provider [phone] Reason for Referral * Precert (Routine) Status Reason Specialty Diagnoses / Procedures Referred By Contact Referred To Contact Pending Review Precert Radiology Diagnoses Avulsion of hamstring muscle, right, initial encounter Procedures MRI PELVIS W/O CONT Chris Love PA-C [address] [place] [address] * Evaluate & Treat - Unlimited Visits (Within 10 days (routine)) Status Reason Specialty Diagnoses / Procedures Referred By Contact Referred To Contact Pending Review Specialty Services Required Physical Therapy Diagnoses Avulsion of hamstring muscle, right, initial encounter Chris Love PA-C [address] [place] [address] Reason for Visit * Reason Comments NEW PATIENT * Evaluate & Treat - Unlimited Visits (Within 10 days (routine)) Status Reason Specialty Diagnoses / Procedures Referred By Contact Referred To Contact Pending Review Specialty Services Required Orthopaedic Surgery Diagnoses Hamstring tendon rupture, right, initial encounter Jannie Carty PA-C [address] [place] [address] [place] [address] Encounter Details Date Type Department Care Team Description 05/30/2017 Office Visit Orthopaedics [facility] [address] [employer] [address] [place] [address] Jacey Jose, DO [address] [place] [address] [phone] Avulsion of hamstring muscle, right, initial encounter* Allergies No Known Allergiesas of this encounter Medications Prescription Sig. Disp. Refills Start Date End Date Status LISINOPRIL 40 MG PO TABS One pill by mouth once a day from [place] 90 Tab 3 12/13/2011 Active TOPROL XL 50 MG PO TB24 One pill by mouth twice a day from [place] 90 Tab 3 12/13/2011 Active VIAGRA 100 [...] Hyperlipidemia LDL goal <130 Other chronic sinusitis Amusement Centre Manager's cramp as of this encounter Resolved [...] pill by mouth twice a day from IA 90 Tab 3 Past Medical History: 10/15/10: [...] of hamstring tendon Comment: right No date: Amusement Centre Manager's cramp Patient Active Problem List Diagnosis Code Essential hypertension with goal blood pressure less than 140/90 I10 Tobacco use disorder F17.200 Esophageal reflux K21.9 Psoriasis L40.9 Rosacea L71.9 IMPOTENCE, 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 GENERALIZED ANXIETY DIS F41.1 Major depressive disorder, single episode, moderate (HCC) F32.1 ADVANCE DIRECTIVE INFORMATION Raynaud's syndrome I73.00 Hyperlipidemia LDL goal <130 E78.5 Other chronic sinusitis J32.8 Amusement Centre Manager's cramp F48.8 History of squamous cell carcinoma [...] performed by Antoinette Godinez MD at [facility]COPY [facility] CT LOWER EX W CONT Right [...] patient. He was educated regarding his current diagnosis.Multiple treatment options discussed and we would like to proceed with an MRI to characterize the injury. There is a chance if his injury is one versus two hamstring involvement it would change his treatment from conservative to invasive. In the meantime, formal physical therapy was prescribed. An order was placed. Continue with gentle activity as tolerated. Avoid heavy strenuous use of the rightlower extremity. Has no other questions or concerns. [...] if he was very active (i.e. Golf, asset analyst) I would recommend surgical intervention, but studies have shown that good outcomes are seen with surgical intervention for young, active individuals whereas in his case nonopvs op management shows no difference. We will get him into physical therapy and reassess him after 6 weeks. Jose Mari D.O. [facility] Orthopaedic Surgery, Shoulder/Elbow in this encounter Nursing Notes * Jeannette Dodd TECH - 05/30/2017 9:21 AM EST Pt present for right hamstring tendon in this encounter Miscellaneous Notes * Addendum Note - Chris Love PA-C - 05/31/2017 11:37 AM EST Addended by: CHRIS LOVE on: 05/31/2017 11:37 AM Modules accepted: Orders in this encounter Plan of Treatment Upcoming Encounters Date Type Specialty Care Team Description 06/12/2017 Office Visit Orthopedics Jose Mari DO 132 [facility] [place] [address] [phone] 10/16/2017 Office Visit Internal Medicine Armani Hough MD [address] [place] [address] [place] [address] [phone] 01/12/2018 Office Visit Neurology Lynn Hoover MD [address] [place] [address] [place] [address] [phone] Scheduled Tests Name Priority Associated Diagnoses Order S chedule MRI PELVIS W/O CONT Routine Avulsion of hamstring muscle, right, initial encounter Ordered: 05/31/2017 Scheduled Referrals Name Priority Associated Diagnoses Order [...] Subscriber ID Type Phone Address IVETTTNA REBECCA [id number] as of this encounter
--- OUTSIDE RECORDS SUMMARY | 2023-02-20 21:49 | External Medical Summary | Summary of Care ---
Author Name Unknown Organization [place] [address] Phone Care Team Providers Care Track Manager Name Role Phone Armani Hough MD Primary Care Provider [phone] Reason for Referral * Evaluate & Treat - Unlimited Visits (Within 10 days (routine)) Status Reason Specialty Diagnoses / Procedures Referred By Contact Referred To Contact Pending Review Specialty Services Required Orthopaedic Surgery Diagnoses Hamstring tendon rupture, right, initial encounter Jannie Carty PA-C [address] [place] [address] [place] [address] Reason for Visit * Reason Comments TEST RESULTS APPOINTMENT Ortho/GW Encounter Details Date Type Department Care Team Description 05/26/2017 Telephone Internal Medicine [address] [address] Jannie Carty PA-C [address] [place] [address] [place] [address] [phone] TEST RESULTS; APPOINTMENT (Ortho/GW) Allergies Active Allergy Reactions Severity Noted Date [...] squamous cell carcinoma 08/26 Overview: right helix 10 Raynaud's syndrome 09/07/2006 ADVANCE DIRECTIVE INFORMATION 09/29/2005 Overview: No, Advance Directive brochure given to patient at prior appointment. 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 Mari at [facility]. Pt aware. * Telephone Encounter - Mireya Luis LPN - 05/26/2017 4:13 PM EST Pt calling and was told of ct results and was told need to see ortho. Was not pleasant with that idea, hung up. * Telephone Encounter - Francisca Molina RN - 05/26/2017 4:03 PM EST message left for patient to call back. * Telephone Encounter - Jannie Carty PA-C - 05/26/2017 3:57 PM EST Please call pt. The CT shows tear of the hamstring tendon. He needs to see ortho. Ref in. in this encounter Plan of Treatment Upcoming Encounters Date Type Specialty Care Team Description 05/30/2017 Office Visit [facility]oped[facility] [address] [phone] 10/16/2017 Office Visit Internal Medicine Armani Hough MD [address] [place] [address] [place] [address] [phone] 01/12/2018 Office Visit Neurology Lynn Hoover MD [address] [place] [address] [place] [address] [phone] Scheduled Referrals Name Priority Associated Diagnoses Order S chedule ORTHOPAEDICS REFERRAL OP Within 10 days (routine) Hamstring tendon rupture, right, initial encounter Ordered: 05/26/2017 Health Maintenance Due Date Last Done Comments [...] fileas of this encounter Visit Diagnoses Diagnosis Hamstring tendon rupture, ri ght, initial encounter - Primary in this encounter Insurance Payer Benefit Plan / Group Subscriber ID Type Phone Address REBECCA FERNANDEZ [id number] as of this encounter
--- OUTSIDE RECORDS SUMMARY | 2023-02-20 21:49 | External Medical Summary | Summary of Care ---
Author Name Unknown Organization [place] [address] Phone Care Team Providers Care Tool Radial Drill Press Set Up Operator Name Role Phone Armani Hough MD Primary Care Provider [phone] Reason for Visit * Reason Comments pre-op exam Encounter Details Date Type Department Care Team Description 06/01/2017 Telephone Orthopaedics [facility] [address] [facility] [place] [address] Jose Mari, [address] [facility] [place] [address] [phone] pre-op exam Allergies No Known Allergiesas of this encounter Medications Prescription Sig. Disp. Refills Start Date End Date Status LISINOPRIL 40 MG PO TABS One pill by mouth once a day from [place] 90 Tab 3 12/13/2011 Active TOPROL XL 50 MG PO TB24 One pill by mouth twice a day from [place] 90 Tab 3 12/13/2011 Active VIAGRA 100 [...] Hyperlipidemia LDL goal <130 Other chronic sinusitis Material Expeditor's cramp as of this encounter Resolved Problems [...] encounter Miscellaneous Notes * Telephone Encounter - Francisca Molina RN - 06/05/2017 2:22 PM EST This need to go to the orthopedic dr. I will forward * Telephone Encounter - Dominique Jones, RUTHY - 06/05/2017 2:15 PM EST MRI was denied and needs a peer to peer done by PCP. [address] [place] [address] [place] is going hold the patients appt time for tomorrow until 5pm tonight. Please advise as to status of peer to peer. Thanks! * Telephone Encounter - Dominique Jones, RUTHY - 06/05/2017 1:53 PM EST Pt called in asking about status of MRI. On my end it is denied due to medical necessity. I called [facility] to cancel MRI for tomorrow. Patient wants to know the next step now that MRI was denied. Please advise * Telephone Encounter - Jeannette Dodd TECH - 06/01/2017 3:16 PM EST Jacey from the [address] [place] [address] called to ask about changing the MRI scrpit to a proximal femur, nota pelvis view. Dr. Mari spoke to her on the phone and said he would put in the new order. in this encounter Plan of Treatment Upcoming Encounters Date Type Specialty Care Team Description 06/12/2017 Office Visit Orthopedics Jose Mari DO 132 [facility] [place] [address] [phone] 10/16/2017 Office Visit Internal Medicine Armani Hough MD [address] [place] [address] [place] [address] [phone] 01/12/2018 Office Visit Neurology Lynn Hoover MD [address] [place] [address] [place] [address] [phone] Health Maintenance Due Date Last Done Comments [...] Subscriber ID Type Phone Address AETNA AETNA [id number] as of this encounter
--- OUTSIDE RECORDS SUMMARY | 2023-02-20 21:49 | External Medical Summary | Summary of Care ---
Author Name Unknown Organization [place] [address] Phone Care Team Providers Care Portable Canteen Operator Name Role Phone Armani Hough MD Primary Care Provider [phone] Reason for Referral * Precert (Routine) Status Reason Specialty Diagnoses / Procedures Referred By Contact Referred To Contact Pending Review Precert Radiology Diagnoses Pain of right thigh Procedures CT LOWER EX W/O CON Jannie Carty PA-C [address] [place] [address] [place] [address] Reason for Visit * Reason Comments ADVICE CT order Encounter Details Date Type Department Care Team Description 05/19/2017 Telephone Radiology [address] [place] [address] [facility] [address] [place] [address] [phone] ADVICE (CT order) Allergies Active Allergy Reactions Severity Noted Date [...] Hyperlipidemia LDL goal <130 Other chronic sinusitis Plastic Extruding Machine Operator's cramp as of this encounter [...] Telephone Encounter - Jannie Carty PA-C - 05/19/2017 12:32 PM EST Ordered. * Telephone Encounter - Irma Jones RT - 05/19/2017 12:06 PM EST Per radiologist, Can you change CT lower ext to without IV only? Order# [id number] Pt is scheduled for May 26 Thank you, Irma/CT in this encounter Plan of Treatment Upcoming Encounters Date Type Specialty Care Team Description 05/26/2017 Imaging Radiology [facility] 132 [facility] [place] [address] [phone] 10/16/2017 Office Visit Internal Medicine Armani Hough MD [address] [place] [address] [place] [address] [phone] 01/12/2018 Office Visit Neurology Lynn Hoover MD 200 [facility] [place] [address] [phone] Scheduled Tests Name Priority Associated Diagnoses Order S chedule CT LOWER EX W/O CON Routine Pain of right thigh Ordered: 05/19/2017 Health Maintenance Due Date Last Done Comments [...] fileas of this encounter Visit Diagnoses Diagnosis Pain of right thigh - Primar y Pain in limb in this encounter Insurance Payer Benefit Plan / Group Subscriber ID Type Phone Address AETNA AETNA [id number] as of this encounter
--- OUTSIDE RECORDS SUMMARY | 2023-02-20 21:49 | External Medical Summary | Summary of Care ---
Author Name Unknown Organization [place] [address] Phone Care Team Providers Care Apprentice Name Role Phone Armani Hough MD Primary Care Provider [phone] Reason for Visit * Reason Comments ADVICE Encounter Details Date Type Department Care Team Description 05/18/2017 Telephone Internal Medicine [address] [address] Armani Hough MD [address] [place] [address] [place] [address] [phone] ADVICE Allergies Active Allergy Reactions Severity Noted Date Comments Potassium 01/23/2001 hives as of this encounter Medications Prescription Sig. Disp. Refills Start Date End Date Status LISINOPRIL 40 MG PO TABS One pill by mouth once a day from [place] 90 Tab 3 12/13/2011 Active TOPROL XL 50 MG PO TB24 One pill by mouth twice a day from [place] 90 Tab 3 12/13/2011 Active VIAGRA 100 [...] Hyperlipidemia LDL goal <130 Other chronic sinusitis Drapery Operator's cramp as of this encounter Resolved [...] encounter Miscellaneous Notes * Telephone Encounter - GuerinPrincessPam D, RUTHY - 05/18/2017 9:51 AM EST Caller was transferred to [facility] at the dedicated phone nurse line. Authorization for MRI in this encounter Plan of Treatment Upcoming Encounters Date Type Specialty Care Team Description 10/16/2017 Office Visit Internal Medicine Armani Hough MD [address] [place] [address] [place] [address] [phone] 01/12/2018 Office Visit Neurology Lynn Hoover MD 200 [place] [address] [phone] Health Maintenance Due Date Last Done Comments [...] Group Subscriber ID Type Phone Address AETNA [facility] [id number] as of this encounter
--- OUTSIDE RECORDS SUMMARY | 2023-02-20 21:49 | External Medical Summary | Summary of Care ---
Author Name Unknown Organization [place] [address] Phone Care Team Providers Care Software Technician Name Role Phone Armani Hough MD Primary Care Provider [phone] Reason for Visit * Reason Comments APPOINTMENT MRI Encounter Details Date Type Department Care Team Description 05/12/2017 Telephone Internal Medicine [address] [address] Jannie Carty PA-C [address] [place] [address] [place] [address] [phone] APPOINTMENT (MRI ) Allergies Active Allergy Reactions [...] Hyperlipidemia LDL goal <130 Other chronic sinusitis Agriculture Technician's cramp as of this encounter Resolved Problems [...] Encounter - Mitzy Smith LPN - 05/18/2017 12:38 PM EST Pt states he will do CT scan * Telephone Encounter - Mitzy Smith LPN [...] 05/18/2017 9:57 AM EST Brock calling from [employer] prior auth and MRI has been denied. They denied due to muscle, belly strain or tear are not covered. Doctor can do a peer to peer by calling opt 4 then opt 2. Ref# [id number]. * Telephone Encounter - Margaret Vidales, RUTHY [...] I called patient to schedule him at [facility] without the pre cert auth, and he told me today now that he needs to have an open MRI and would like that at [facility]. I sent pre cert another stat message [...] Visit Internal Medicine Armani Hough MD [address] [place] [address] [place] [address] [phone] 01/12/2018 Office Visit Neurology Lynn Hoover MD [address] [place], [place] [address] [address] [phone] Health Maintenance Due Date Last Done Comments [...] Subscriber ID Type Phone Address REBECCA FERNANDEZ [id number] as of this encounter
--- OUTSIDE RECORDS SUMMARY | 2023-02-20 21:49 | External Medical Summary | Summary of Care ---
Author Name Unknown Organization [place] [address] Phone Care Team Providers Care Barn And Property Manager Name Role Phone Armani Hough MD Primary Care Provider [phone] Reason for Referral * Precert (Emergency) Status Reason Specialty Diagnoses / Procedures Referred By Contact Referred To Contact Pending Review Precert Radiology Diagnoses Avulsion of hamstring muscle, right, initial encounter Procedures MR FEMUR NO JOINT WITHOUT IV CONTRAST Jose Mari, DO [address] [place] [address] * Evaluate & Treat - Unlimited Visits (Within 10 days (routine)) Status Reason Specialty Diagnoses / Procedures Referred By Contact Referred To Contact Pending Review Specialty Services Required Physical Therapy Diagnoses Avulsion of hamstring muscle, right, initial encounter Chris Love PA-C [address] [place] [address] Reason for Visit * Reason Comments NEW PATIENT * Evaluate & Treat - Unlimited Visits (Within 10 days (routine)) Status Reason Specialty Diagnoses / Procedures Referred By Contact Referred To Contact Pending Review Specialty Services Required Orthopaedic Surgery Diagnoses Hamstring tendon rupture, right, initial encounter Jannie Carty PA-C [address] [place] [address] [place] [address] Encounter Details Date Type Department Care Team Description 05/30/2017 Office Visit Orthopaedics [facility] [address] [place] [address] Jose Mari, DO 132 [facility] [place] [address] [phone] Avulsion of hamstring muscle, right, initial encounter* [...] Hyperlipidemia LDL goal <130 Other chronic sinusitis Professor Of Environmental Engineering's cramp as of this encounter Resolved Problems [...] tingling distally. Denies calf pain. Nursing Notes: Jeannette DoddJARAD 05/30/17 0926 Signed Pt present for right [...] a day from [place] 90 Tab 3 TOPROL XL 50 MG PO TB24 One pill by mouth twice a day from [place] 90 Tab 3 Past Medical History: 10/15/10: [...] of hamstring tendon Comment: right No date: Professor Of Environmental Engineering's cramp Patient Active Problem List Diagnosis Code Essential hypertension with goal blood pressure less than 140/90 I10 Tobacco use disorder F17.200 Esophageal reflux K21.9 Psoriasis L40.9 Rosacea L71.9 IMPOTENCE, 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 GENERALIZED ANXIETY DIS F41.1 Major depressive disorder, single episode, moderate (HCC) F32.1 ADVANCE DIRECTIVE INFORMATION Raynaud's syndrome I73.00 Hyperlipidemia LDL goal <130 E78.5 Other chronic sinusitis J32.8 Professor Of Environmental Engineering's cramp F48.8 History of squamous cell carcinoma [...] by Antoinette Godinez MD at ENDOSCOPY [facility] CT LOWER EX W CONT Right 05/26/2017 [...] if he was very active (i.e. Golf, primer expeditor and drier) I would recommend surgical intervention, but studies have shown that good outcomes are seen with surgical intervention for young, active individuals whereas in his case nonopvs op management shows no difference. We will get him into physical therapy and reassess him after 6 weeks. Jose Mari D.O. [facility] [place] Orthopaedic Surgery, Shoulder/Elbow in this encounter Nursing Notes * Jeannette Dodd TECH - 05/30/2017 9:21 AM EST Pt present for right hamstring tendon in this encounter Miscellaneous Notes * Addendum Note - Jose Mari DO - 06/01/2017 3:23 PM EST Addended by: JOSE MARI on: 06/01/2017 03:23 PM Modules accepted: Orders * Addendum Note - Crhis Love PA-C - 05/31/2017 11:37 AM EST Addended by: CHRIS LOVE on: 05/31/2017 11:37 AM Modules accepted: Orders in this encounter Plan of Treatment Upcoming Encounters Date Type Specialty Care Team Description 06/12/2017 Office Visit Orthopedics Jose Mari DO 132 [facility] [place] [address] [phone] 10/16/2017 Office Visit Internal Medicine Armani Hough MD [address] [place] [address] [place] [address] [phone] 01/12/2018 Office Visit Neurology Lynn Hoover MD [address] [place] [address] [place] [address] [phone] Scheduled Tests Name Priority Associated Diagnoses Order S chedule MR FEMUR NO JOINT WITHOUT IV CONTRAST STAT Avulsion of hamstring muscle, right, initial encounter Ordered: 06/01/2017 Scheduled Referrals Name Priority Associated Diagnoses Order [...] Subscriber ID Type Phone Address IVETTTNA REBECCA [id number] as of this encounter
--- OUTSIDE RECORDS SUMMARY | 2023-02-20 21:49 | External Medical Summary | Summary of Care ---
Author Name Unknown Organization [place] [address] Phone Care Team Providers Care Mirror Framer Name Role Phone Armani Hough MD Primary Care Provider [phone] Reason for Visit * Reason Comments pre-op exam Encounter Details Date Type Department Care Team Description 06/01/2017 Telephone Orthopaedics [facility] 132 [facility] [place] [address] Jose Mari, [address] [facility] [place] [address] [phone] pre-op exam Allergies No Known Allergiesas of this encounter Medications Prescription Sig. Disp. Refills Start Date End Date Status LISINOPRIL 40 MG PO TABS One pill by mouth once a day from [place] 90 Tab 3 12/13/2011 Active TOPROL XL 50 MG PO TB24 One pill by mouth twice a day from [place] 90 Tab 3 12/13/2011 Active VIAGRA 100 [...] Hyperlipidemia LDL goal <130 Other chronic sinusitis Superintendent Drilling's cramp as of this encounter Resolved Problems [...] denied due to medical necessity. I called [phone] to cancel MRI for tomorrow. Patient wants [...] 06/12/2017 Office Visit [facility] [address] [phone] 10/16/2017 Office Visit Internal Medicine Armani Hough MD [address] [place] [address] [place] [phone] 01/12/2018 Office Visit Neurology Lynn Hoover MD 200 [facility] [place] [address] [phone] Health Maintenance Due Date Last Done Comments [...] / Group Subscriber ID Type Phone Address IVETTTROBBY FERNANDEZ [id number] as of this encounter
--- OUTSIDE RECORDS SUMMARY | 2023-02-20 21:49 | External Medical Summary | Summary of Care ---
Author Name Unknown Organization [place] [address] Phone Care Team Providers Care Baseball Sewer Hand Name Role Phone Armani Hough MD Primary Care Provider [phone] Reason for Visit * Reason Comments pre-op exam Encounter Details Date Type Department Care Team Description 06/01/2017 Telephone Orthopaedics [facility] 132 [facility] [place] [address] Jose Mari, [address] [facility] [place] [address] [phone] pre-op exam Allergies No Known Allergiesas of this encounter Medications Prescription Sig. Disp. Refills Start Date End Date Status LISINOPRIL 40 MG PO TABS One pill by mouth once a day from [place] 90 Tab 3 12/13/2011 Active TOPROL XL 50 MG PO TB24 One pill by mouth twice a day from [place] 90 Tab 3 12/13/2011 Active VIAGRA 100 [...] Hyperlipidemia LDL goal <130 Other chronic sinusitis Data Analyst's cramp as of this encounter Resolved Problems [...] Jeannette Dodd TECH - 06/01/2017 3:16 PM SACHI Mari from the [address] [place] [address] called to ask about changing the MRI scrpit to a proximal femur, nota pelvis view. Dr. Mari spoke to her on the phone and said he would put in the new order. in this encounter Plan of Treatment Upcoming Encounters Date Type Specialty Care Team Description 06/12/2017 Office Visit Orthopedics Jose Mari, [address] [place] [address] [phone] 10/16/2017 Office Visit Internal Medicine Armani Hough MD [address] [place] [address] [place] [address] [phone] 01/12/2018 Office Visit Neurology Lynn Hoover MD 200 [place] [address] [phone] Health Maintenance Due Date Last Done Comments [...] / Group Subscriber ID Type Phone Address [id number] as of this encounter
--- OUTSIDE RECORDS SUMMARY | 2023-02-20 21:49 | External Medical Summary | Summary of Care ---
Author Name Unknown Organization [place] [address] Phone Care Team Providers Care Installation Technician Name Role Phone Armani Hough MD Primary Care Provider Reason for Referral * Precert (Routine) Status Reason Specialty Diagnoses / Procedures Referred By Contact Referred To Contact Pending Review Precert Radiology Diagnoses Lower limb pain, inferior, right Procedures CT LOWER EX W/WO CONT Sammy Fall PA-C [address] [place] [address] [place] [address] Reason for Visit * Reason Comments APPOINTMENT MRI Encounter Details Date Type Department Care Team Description 05/12/2017 Telephone Internal Medicine [address] [address] Sammy Fall PA-C [address] [place] [address] [place] [address] [phone] APPOINTMENT (MRI ) Allergies Active Allergy Reactions [...] Hyperlipidemia LDL goal <130 Other chronic sinusitis Case Management Social Worker's cramp as of this encounter Resolved [...] as of this encounter Miscellaneous Notes * Addendum Note - Sammy Fall PA-C - 05/18/2017 1:16 PM EST Addended by: SAMMY FALL on: 05/18/2017 01:16 PM Modules accepted: Orders * Telephone Encounter - Sammy Fall PA-C - 05/18/2017 1:16 PM EST Order in. * Telephone Encounter - Mitzy Smith LPN - 05/18/2017 12:38 PM EST Pt states he will do CT scan * Telephone Encounter - Mitzy Smith LPN - 05/18/2017 11:46 AM EST My g message sent to pt * Telephone Encounter - Sammy Fall PA-C - 05/18/2017 11:11 AM EST Please call pt. MRI denied. We can order a CT scan to see if this shows anything. Does he want to do this? * Telephone Encounter - Vielka Eller LPN - 05/18/2017 9:57 AM EST Brock calling from [facility] [employer] [facility] prior auth and MRI has been denied. They denied due to muscle, belly strain or tear are not covered. Doctor can do a peer to peer by calling opt 4 then opt 2. Ref# [id number]. * Telephone Encounter - Margaret Vidales, RUTHY [...] I called patient to schedule him at [facility] without the pre cert auth, and he told me today now that he needs to have an open MRI and would like that at [facility]. I sent pre cert another [...] Visit Internal Medicine Armani Hough MD [address] [place] [address] [place] [address] [phone] 01/12/2018 Office Visit Neurology Lynn Hoover MD 200 [place] [address] [phone] Scheduled Tests Name Priority Associated Diagnoses Order S chedule CT LOWER EX W/WO CONT Routine Lower limb pain, inferior, right Ordered: 05/18/2017 Health Maintenance Due Date Last Done Comments [...] fileas of this encounter Visit Diagnoses Diagnosis Lower limb pain, inferior, r ight - Primary in this encounter Insurance Payer Benefit Plan / Group Subscriber ID Type Phone Address IVETTTROBBY ROOTROBBY [id number] as of this encounter
--- OUTSIDE RECORDS SUMMARY | 2023-02-20 21:49 | External Medical Summary | Summary of Care ---
Author Name Unknown Organization [place] [address] Phone Care Team Providers Care Cracker And Cookie Machine Operator Name Role Phone Armani Hough MD Primary Care Provider [phone] Reason for Referral * Precert (Routine) Status Reason Specialty Diagnoses / Procedures Referred By Contact Referred To Contact Pending Review Precert Radiology Diagnoses Lower limb pain, inferior, right Procedures CT LOWER EX W/WO CONT Sammy Fall PA-C [address] [place] [address] [place] [address] Reason for Visit * Reason Comments APPOINTMENT MRI Encounter Details Date Type Department Care Team Description 05/12/2017 Telephone Internal Medicine [address] [address] Sammy Fall PA-C [address] [place] [address] [place] [address] [phone] APPOINTMENT (MRI ) Allergies Active Allergy Reactions [...] Hyperlipidemia LDL goal <130 Other chronic sinusitis Rubber Tester's cramp as of this encounter Resolved Problems [...] encounter Miscellaneous Notes * Telephone Encounter - Shavonne Ch, RUTHY - 05/19/2017 9:26 AM EST Pt's returning call. Spoke to pt and scheduled for CT. Pt reports having hypertension. Made ptaware he may need to complete blood work prior to CT appt. Please advise. * Addendum Note - Sammy Fall PA-C [...] 05/18/2017 9:57 AM EST Brock calling from [facility] prior auth and MRI has been denied. They denied due to muscle, belly strain or tear are not covered. Doctor can do a peer to peer by calling opt 4 then opt 2. Ref# [id number]. * Telephone Encounter - Margaret Vidales, RUTHY [...] I called patient to schedule him at [facility] without the pre cert auth, and he told me today now that he needs to have an open MRI and would like that at [facility]. I sent pre cert another stat [...] Specialty Care Team Description 05/26/2017 Imaging Radiology [facility] [address] [facility] [place] [address] [phone] 10/16/2017 Office Visit Internal Medicine Armani Hough MD [address] [place] [address] [place] [address] [phone] 01/12/2018 Office Visit Neurology Lynn Hoover MD [address] [facility] [place] [address] [phone] Scheduled Tests Name Priority Associated Diagnoses Order [...] Subscriber ID Type Phone Address REBECCA FERNANDEZ [id number] as of this encounter
--- OUTSIDE RECORDS SUMMARY | 2023-02-20 21:49 | External Medical Summary | Summary of Care ---
Author Name Unknown Organization [place] [address] Phone Care Team Providers Care Commercial Underwriter Name Role Phone Armani Hough MD Primary Care Provider [phone] Reason for Visit * Reason Comments APPOINTMENT MRI Encounter Details Date Type Department Care Team Description 05/12/2017 Telephone Internal Medicine [address] [address] Jannie Carty PA-C [address] [place] [address] [place] [address] [phone] APPOINTMENT (MRI ) Allergies Active Allergy Reactions Severity Noted Date Comments Potassium 01/23/2001 hives as of this encounter Medications Prescription Sig. Disp. Refills Start Date End Date Status LISINOPRIL 40 MG PO TABS One pill by mouth once a day from [place] 90 Tab 3 12/13/2011 Active TOPROL XL 50 MG PO TB24 One pill by mouth twice a day from [place] 90 Tab 3 12/13/2011 Active VIAGRA 100 [...] Hyperlipidemia LDL goal <130 Other chronic sinusitis Castables Worker's cramp as of this encounter Resolved [...] Miscellaneous Notes * Telephone Encounter - Margaret Vidales, RUTHY [...] I called patient to schedule him at [facility] without the pre cert auth, and he told me today now that he needs to have an open MRI and would like that at [facility]. I sent pre cert another [...] Office Visit Internal Medicine Armani Hough MD [address] [place] [address] [place] [address] [phone] 01/12/2018 Office Visit Neurology Lynn Hoover MD [address] [place] [address] [place] [address] [phone] Health Maintenance Due Date Last Done Comments [...] Subscriber ID Type Phone Address AETNA AETNA [id number] as of this encounter
--- OUTSIDE RECORDS SUMMARY | 2023-02-20 21:49 | External Medical Summary | Summary of Care ---
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 [address] [place] [address] in [place] is going hold the patients appt time for tomorrow until 5pm tonight. Please advise as to status of peer to peer. Thanks! * Telephone Encounter - Dominique Jones, RUTHY - 06/05/2017 1:53 PM EST Pt called in asking about status of MRI. On my end it is denied due to medical necessity. I called [facility] to cancel MRI for tomorrow. Patient wants to know the next step now that MRI was denied. Please advise * Telephone Encounter - Jeannette Dodd TECH - 06/01/2017 3:16 PM EST Jacey from the [facility]. [facility] called to ask about changing the MRI scrpit to a proximal femur, nota pelvis view. Dr. Mari spoke to her on the phone and said he would put in the new order. in this encounter Plan of Treatment Upcoming Encounters Date Type Specialty Care Team Description 06/12/2017 Office Visit Orthopedics Jose Mari DO 132 [facility] [place] [address] [phone] 10/16/2017 Office Visit Internal Medicine Armani Hough MD [address] [place] [address] [place] [address] [phone] 01/12/2018 Office Visit Neurology Lynn Hoover MD 200 [place] [address] [phone] Health Maintenance Due Date Last Done Comments [...] Subscriber ID Type Phone Address AETNA AETNA [id number] as of this encounter
--- OUTSIDE RECORDS SUMMARY | 2023-02-20 21:50 | External Medical Summary | Summary of Care ---
Author Name Unknown Organization [place] [address] Phone Care Team Providers Care Injection Machine Operator Name Role Phone Armani Hough MD Primary Care Provider [phone] Reason for Visit * Reason Comments APPOINTMENT MRI Encounter Details Date Type Department Care Team Description 05/12/2017 Telephone Internal Medicine [address] [address] Jannie Carty PA-C [address] [place] [address] [place] [address] [phone] APPOINTMENT (MRI ) Allergies Active Allergy Reactions [...] mouth daily. 90 Cap 1 04/17/2017 Active PredniSONE (DELTASONE) 20 MG TabletIndications:Pa in of right lower extremity Take 2 Tabs by mouth daily for 5 days. 10 Tab 0 05/11/2017 05/16/2017 Active traMADol (ULTRAM) 50 MG TabletIndications:Pa in of right lower extremity Take 1 Tab by mouth every 6 hours as needed for Pain. 30 Tab 0 05/11/2017 Active Promethazine-Codeine 6.25-10 MG/5ML syrupIndications:Vir al URI with cough Take 5 mL by mouth 4 times a day as needed for Cough for up to 10 days. 120 mL 1 05/02/2017 05/12/2017 as of this encounter Active Problems Problem [...] Hyperlipidemia LDL goal <130 Other chronic sinusitis Creping Machine Operator Helper's cramp as of this encounter Resolved [...] Telephone Encounter - Margaret Vidales OSA - 05/16/2017 8:54 AM EST I have not received an auth from pre cert yet, so I called patient to schedule him at [facility] without the pre cert auth, and he told me today now that he needs to have an open MRI and would like that at [facility]. I sent pre cert another stat [...] Visit Internal Medicine Armani Hough MD [address] [place] [address] [place] [address] [phone] 01/12/2018 Office Visit Neurology Lynn Hoover MD [address] [place] [address] [place] [address] [phone] Health Maintenance Due Date Last Done Comments [...] Subscriber ID Type Phone Address AETNA AETNA [id number] as of this encounter
--- OUTSIDE RECORDS SUMMARY | 2023-02-20 21:50 | External Medical Summary | Summary of Care ---
Author Name Unknown Organization [place] [address] Phone Care Team Providers Care Babbitt Spinner Name Role Phone Armani Hough MD Primary Care Provider [phone] Reason for Visit * Reason Comments APPOINTMENT MRI Encounter Details Date Type Department Care Team Description 05/12/2017 Telephone Internal Medicine [address] [address] Jannie Carty PA-C [address] [place] [address] [place] [address] [phone] APPOINTMENT (MRI ) Allergies Active Allergy Reactions Severity Noted Date Comments Potassium 01/23/2001 hives as of this encounter Medications Prescription Sig. Disp. Refills Start Date End Date Status LISINOPRIL 40 MG PO TABS One pill by mouth once a day from [place] 90 Tab 3 12/13/2011 Active TOPROL XL 50 MG PO TB24 One pill by mouth twice a day from [place] 90 Tab 3 12/13/2011 Active VIAGRA 100 [...] Hyperlipidemia LDL goal <130 Other chronic sinusitis Car Carder's cramp as of this encounter Resolved Problems [...] I called patient to schedule him at [facility] without the pre cert auth, and he told me today now that he needs to have an open MRI and would like that at [facility]. I sent pre cert another stat [...] Office Visit Internal Medicine Armani Hough MD [address] [place] [address] [place] [address] [phone] 01/12/2018 Office Visit Neurology Lynn Hoover MD [address] [place] [address] [place] [address] [phone] Health Maintenance Due Date Last Done Comments [...] Group Subscriber ID Type Phone Address AETNA IVETTTROBBY [id number] as of this encounter
--- OUTSIDE RECORDS SUMMARY | 2023-02-20 21:50 | External Medical Summary | Summary of Care ---
Author Name Unknown Organization [place] [address] Phone Care Team Providers Care Building Coordinator Name Role Phone Armani Hough MD Primary Care Provider [phone] Reason for Visit * Reason Comments STATUS CHECK Encounter Details Date Type Department Care Team Description 05/11/2017 Office Visit Internal Medicine [address] [address] Jannie Carty PA-C [address] [place] [address] [place] [address] [phone] Pain of right lower extremity* Allergies Active Allergy Reactions Severity Noted Date [...] mouth daily. 90 Cap 1 04/17/2017 Active Promethazine-Codeine 6.25-10 MG/5ML syrupIndications:Lien l URI with cough Take 5 mL by mouth 4 times a day as needed for Cough for up to 10 days. 120 mL 1 05/02/2017 05/12/2017 Active PredniSONE (DELTASONE) 20 MG TabletIndications:Ayan n of right lower extremity Take 2 Tabs by mouth daily for 5 days. 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 Nursing Notes: Francisca Molina RN 05/11/17 1144 Unsigned Pain and swelling rt thigh since Sat. No known injury. Pt here today with swelling, bruising at right posterior thigh, for the past few days. Pt states that he was walking, in the [place], when he felt a sharp pain at thigh. Pt denies injury. He didn't bump into anything or fall. He did fall when the pain hit him. He managed to get out of the [place]. Pt has swelling, redness, bruising, hot to touch at posterior leg. Pt has no pain at rest, only with cert ain movements, weight bearing. He is taking some OTC Meds with little relief. Review of patient's allergies indicates: Allergen Reactions Potassium hives Current Outpatient Prescriptions Medication Sig Dispense Refill traZODone (DESYREL) 100 MG Tablet TAKE 1/2 [...] a day from AR 90 Tab 3 Promethazine-Codeine 6.25-10 MG/5ML syrup Take 5 mL by mouth 4 times a day as needed for Cough for up to 10 days. 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 rate 12, weight 97.5 kg (215 lb). GENERAL: alert, no distress, well nourished and well developed EXTREMITIES: right posterior thigh - large area of ecchymosis. Pain with palpation, edema, warm to touch. A:M79.604 Pain of right lower extremity (primary encounter diagnosis) Plan: Duplex venous le unilat Prednisone 20 mg po tabs Sig:Take 2 tabs by mouth daily for 5 days. Tramadol hcl 50 mg po tabs Sig:Take 1 tab by mouth every 6 hours as needed for pain. Will get venous doppler and RO DVT. If this is neg, will get MRI - possibly torn muscle. Any questions/problems, please call. Start above meds. If this worsens, please go to ER. Follow up: Return if symptoms worsen or fail to improve. Jannie Carty PA-C in this encounter Nursing Notes * Francisca Molina, RN - 05/11/2017 11:43 AM EST Pain and swelling rt thigh since Sat. No known injury. in this encounter Plan of Treatment Upcoming Encounters Date Type Specialty Care Team Description 05/11/2017 Imaging Radiology Mov, Tech Ultrasound [address] [place] [address] [place] [phone] 10/16/2017 Office Visit Internal Medicine Armani Hough MD [address] [place] [address] [place] [phone] 01/12/2018 Office Visit Neurology Lynn Hoover MD [address] [facility] [address] [place] [address] [phone] Scheduled Tests Name Priority Associated Diagnoses Order S chedule DUPLEX VENOUS LE UNILAT Routine Pain of right lower extremity Ordered: 05/11/2017 Health Maintenance Due Date Last Done Comments [...] encounter Visit Diagnoses Diagnosis Pain of right lower extremit y - Primary in this encounter Insurance Payer Benefit Plan / Group Subscriber ID Type Phone Address REBECCA FERNANDEZ [id number] as of this encounter
--- OUTSIDE RECORDS SUMMARY | 2023-02-20 21:50 | External Medical Summary ---
Author Name KALLIE NAVARRO Organization [id number] [place] [address] Support Name Relationship Address Phone SANTI ARREGUIN MD PROV Unknown Unavailab le Laboratory Report Ordering Provider Test Date Status SANTI ARREGUIN MD 12/13/2011 08:15:00-0400 Final Obs # Observation Date Value ABNL Reference Status Pe rforming Location 1 BUN 12/13/2011 10:130400 15 6-20 mg/dL Final 2 Creatinine 12/13/2011 10:0400 0.9 0.6-1.3 mg/dL Final GFR should be used to assess renal function. Plasma/Serum creatinine may not be able to properly reflect renal function in some cases.
--- OUTSIDE RECORDS SUMMARY | 2023-02-20 21:50 | External Medical Summary ---
Author Name Unknown Address [facility] [address] [place] [id number] Phone Organization K01:[facility] [address] [place] [id number] Laboratory Report Ordering Provider Test Date Status [facility] [id number] Final Obs # Observation Date Value Abnormality Reference Status Performing Location 0 SOURCE [id number] STOOL Final [facility] [address] [facility] [address]
--- OUTSIDE RECORDS SUMMARY | 2023-02-20 21:50 | External Medical Summary | Summary of Care ---
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
--- OUTSIDE RECORDS SUMMARY | 2023-02-20 21:50 | External Medical Summary | Summary of Care ---
Author Name Unknown Organization [place] [address] Phone Care Team Providers Care Farm Manager Name Role Phone Armani Hough MD Primary Care Provider Reason for Referral * Precert (Routine) Status Reason Specialty Diagnoses / Procedures Referred By Contact Referred To Contact Pending Review Precert Radiology Diagnoses Pain of right lower extremity Procedures MR FEMUR NO JOINT WITH WITHOUT IV CONTRAST Sammy Fall PA-C [address] [place] [address] [place] [address] Reason for Visit * Reason Comments STATUS CHECK Encounter Details Date Type Department Care Team Description 05/11/2017 Office Visit Internal Medicine [address] [address] Sammy Fall PA-C [address] [place] [address] [place] [address] [phone] Pain of right lower extremity* Allergies Active [...] Hyperlipidemia LDL goal <130 Other chronic sinusitis Director 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 as of this encounter Resolved Problems [...] as of this encounter Progress Notes * Sammy Fall PA-C - 05/11/2017 11:50 AM EST Formatting [...] pill by mouth once a day from [place] 90 Tab 3 TOPROL XL 50 MG PO TB24 One pill by mouth twice a day from [place] 90 Tab 3 Promethazine-Codeine 6.25-10 MG/5ML syrup [...] Inflamed seborrheic keratosis 07/27/[address] Pekruhn Major depressive disorder, single episode, moderate (HCC) Other chronic sinusitis Other psoriasis Raynaud's syndrome Rosacea Director 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 cramp Social History Social History Marital status: Spouse name: N/A Number of children: 2 Years of education: N/A 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 Sammy Fall PA-C in this encounter Nursing Notes * Francisca Molina RN - 05/11/2017 11:43 AM EST Pain and swelling rt thigh since Sat. No known injury. in this encounter Miscellaneous Notes * Addendum Note - Sammy Fall PA-C - 05/11/2017 3:35 PM EST Addended by: SAMMY FALL on: 05/11/2017 03:35 PM Modules accepted: Orders in this encounter Plan of Treatment Upcoming Encounters Date Type Specialty Care Team Description 10/16/2017 Office Visit Internal Medicine Armani Hough MD [address] [place] [address] [place] [address] [phone] 01/12/2018 Office Visit Neurology Lynn Hoover MD [address] [facility] [place] [address] [phone] Scheduled Tests Name Priority Associated Diagnoses Order S chedule MR FEMUR NO JOINT WITH WITHOUT IV CONTRAST Routine Pain of right lower extremity Ordered: [...] Implants Not on fileas of this encounter Results * DUPLEX VENOUS LE UNILAT (05/11/2017 3:23 PM) Specimen Performing Laborator y [facility] [address] [place] [address] Narrative EXAM VENOUS DUPLEX LIMIT LOWER EXTR - 05/11/2017 3:23 pm HISTORY pain, swelling, bruising, erythema at posterior thigh TECHNIQUE Real time duplex sonography of the deep veins of the right lower extremity and left common femoral vein performed with color and spectral doppler including compression supplemented with cine clips. COMPARISON None. FINDINGS The right common femoral, femoral, popliteal and visualized portions of the posterior tibial and peroneal veins are normally patent and completely compressible. The left common femoral vein is patent and exhibits compressibility. The doppler evaluation reveals normal spontaneous and phasic variation and normal augmentation. IMPRESSION No deep venous thrombosis in the right lower extremity or the left common femoral vein. Authenticated By Authenticating DateAuthenticating TimeReading Providers(s) LEONA PALMER MD01-04-2018 15:30LEONA PALMER MD Procedure Note Interface, Rad In - 05/11/2017 3:30 PM EST EXAM VENOUS DUPLEX LIMIT LOWER EXTR - 05/11/2017 3:23 pm HISTORY pain, swelling, bruising, erythema at posterior thigh TECHNIQUE Real time duplex sonography of the deep veins of the right lower extremityand left common femoral vein performed with color and spectral doppler including compressionsupplemented with cine clips. COMPARISON None. FINDINGS The right common femoral, femoral, popliteal and visualized portions ofthe posterior tibial and peroneal veins are normally patent and completely compressible. The left commonfemoral vein is patent and exhibits compressibility. The doppler evaluation reveals normal spontaneous andphasic variation and normal augmentation. IMPRESSION No deep venous thrombosis in the right lower extremity or the left commonfemoral vein. Authenticated By Authenticating Date AuthenticatingTime Reading Providers(s) LEONA PALMER MD 05-11-2017 15:30LEONA PALMER MD in this encounter Visit Diagnoses Diagnosis Pain of right lower extremit y - Primary in this encounter Insurance Payer Benefit Plan / Group Subscriber ID Type Phone Address [facility] [id number] as of this encounter
--- OUTSIDE RECORDS SUMMARY | 2023-02-20 21:50 | External Medical Summary ---
Author Name Unknown Organization K08:[facility] [address] [place] [address] Support Name Relationship Address Phone SANTI ARREGUIN MD PROV Unknown Unavaila ble Laboratory Report Ordering Provider Test Date Status SANTI ARREGUIN MD 12/06/2010 09: Final Obs # Observation Date Value ABNL Reference Status Pe rforming Location 1 BUN 1 11:17-040 0 19 6-20 mg/dL Final 2 Creatinine 1 11:17-040 0 0.8 0.6-1.3 mg/dL Final 3 Creatinine 1 11:17-040 0 GFR should be used to assess renal function. Plasma/Serum creatinine may not be able to properly reflect renal function in some cases. Final 4 Sodium 1 11:17-040 0 139 135-146 mmol/L Final 5 Potassium 1 11:17-040 0 4.2 3.5-5.1 mmol/L Final 6 Cl 1 11:17-040 0 103 98-111 mmol/L Final 7 CO2 1 11:17-040 0 27 22-32 mmol/L Final 8 Glucose 1 11:17-040 0 106 70-120 mg/dL Final 9 Albumin, Serum 1 11:17-040 0 4.1 3.8-5.0 g/dL Final 10 AST (Aspartate aminotransferase ) 1 11:17-040 0 20 10-50 U/L Final 11 Alk Phos 1 11:17-040 0 77 25-115 U/L Final 12 Bilirubin, Total 1 11:17-040 0 0.5 0.3-1.3 mg/dL Final 13 Calcium 1 11:17-040 0 9.0 8.3-10.5 mg/dL Final 14 Protein 1 11:17-040 0 6.6 6.0-8.3 g/dL Final 15 ALT (Alanine aminotransferase ) 1 11:17-040 0 18 10-50 U/L Final 16 Anion gap 1 11:17-040 0 9 7-15 mmol/L Final 17 GFR / 1.73 sq M.predicted 1 11:17-040 0 >60.0 >60 mL/min Final
--- OUTSIDE RECORDS SUMMARY | 2023-02-20 21:50 | External Medical Summary ---
Author Name Unknown Address [facility] [address] [id number] Phone Organization K01:[facility] [address] [address] Laboratory Report Ordering Provider Test Date Status EUFEMIA CHRISTIANSON [facility] [id number] Final Obs # Observation Date Value Abnormality Reference Status Performing Location 0 BUN [id number] 15 6-20 Final [facility] [address] [facility] [address] 1 Creatinine [id number] 1.1 0.6-1.2 Final [facility] [address] [facility] [address]
--- OUTSIDE RECORDS SUMMARY | 2023-02-20 21:50 | External Medical Summary ---
Author Name Unknown Address [address] [place] [address] [place] [address] Phone Organization [id number]:[address] Stewart [place] [address] Laboratory Report Ordering Provider Test Date Status EUFEMIA CHRISTIANSON [facility] [id number] Final Obs # Observation Date Value Abnormality Reference Status Performing Location 0 WBC [id number] 5.43 4.00-10.[address] Stewart [place] [address] 1 RBC [id number] 4.39 Below low normal 4.50-5.[address] Stewart [place] [address] 2 Hemoglobin [id number] 13.8 Below low normal 14.0-16.[address] Stewart [place] [address] 3 HCT [id number] 40.9 40.0-48.4 Final G MG [address] Stewart [place] [address] 4 MCV [id number] 93.2 82.0-99.5 Final G [address] Stewart [place] [address] 5 MCH [id number] 31.4 27.0-34.0 Final G MG [address] Stewart [place] [address] 6 [facility] [id number] 33.7 32.0-36.0 Final G MG [address] Stewart [place] [address] 7 RDW [id number] 13.9 11.5-15.5 Final G MG [address] Stewart [place] [address] 8 Platelets [id number] 219 140-400 Final G MG [address] Stewart [place] [address] 9 MPV [id number] 9.4 6.6-11.[address] Stewart [place] [address] 10 Segs [id number] 55 40-[address] Stewart [place] [address] 11 Lymphocytes [id number] 27 18-42 Final [facility] [address] Stewart [place] [address] 12 Monos [id number] 13 Above high normal 1-11 Final [facility] [address] Stewart [place] [address] 13 Eosinophils [id number] 5 0-6 Final G [address] Stewart [place] 14 Basos [id number] 0 0-2 Final G [address] Stewart [place] 15 Segmented Neutrophils, Abs [id number] 2.97 1.8-7.7 Final G [address] Stewart [place] 16 Lymphs, Abs [id number] 1.49 1.0-4.8 Final G [address] Stewart [place] [address] 17 Monos, Abs [id number] 0.69 0.0-1.1 Final G [address] Stewart [place] [address] 18 Eos, Abs [id number] 0.27 0.0-0.7 Final GM G [address] Stewart [place] 19 Basos, Abs [id number] 0.01 0.0-0.2 Final G [address] Stewart [place] [address]
--- OUTSIDE RECORDS SUMMARY | 2023-02-20 21:50 | External Medical Summary ---
Author Name Unknown Organization K01:[facility], [address] [address] Support Name Relationship Address Phone SANTI ARREGUIN MD PROV Unknown Unavaila ble Laboratory Report Ordering Provider Test Date Status SANTI ARREGUIN MD 12/06/2010 09:0400 Final Obs # Observation Date Value ABNL Reference Status Pe rforming Location 1 PSA SCREENING 12/07/2010 00:0400 0.88 <3.1 ng/mL Final
--- OUTSIDE RECORDS SUMMARY | 2023-02-20 21:50 | External Medical Summary | Summary of Care ---
Author Name Unknown Organization [facility] [address] Phone Care Team Providers Care Welding Technician Name Role Phone Armani Hough MD Primary Care Provider + [phone] Reason for Visit * Reason Comments STATUS CHECK Encounter Details Date Type Department Care Team Description 04/17/2017 Office Visit Internal Medicine [address] [address] Armani Hough MD [address] [place] [address] [place] [address] [phone] Essential hypertension with goal blood pressure less than 140/90*;Esophageal reflux;Persistent insomnia Allergies Active Allergy Reactions Severity Noted Date [...] 0 05/26/2016 Active RaNITidine HCl 150 MG CapsuleIndications :Esophageal [...] 1 04/17/2017 Active omeprazole (PRILOSEC) 20 MG CPDRIndications:Es ophageal reflux Take 1 Cap by mouth daily. 90 Cap 1 04/17/2017 Active traZODone (DESYREL) 100 MG Tablet TAKE 1 TABLET DAILY AT BEDTIME 90 Tab 1 10/13/2016 04/17/2017 Discontinued omeprazole (PRILOSEC) 20 MG CPDRIndications:Es ophageal reflux TAKE 1 CAPSULE ONCE DAILY 1HOUR BEFORE THE FIRST MEALOF THE DAY 90 Cap 1 10/21/2016 04/17/2017 Discontinued Baclofen 20 MG TabletIndications: Hip pain, left,Acute left-sided low back pain without sciatica Take 1 Tab by mouth 2 times a day. As needed for muscle pain 30 Tab 0 01/11/2017 04/17/2017 Discontinued PredniSONE (DELTASONE) 20 MG TabletIndications: Hip pain, left,Acute left-sided low back pain without sciatica 2 tablets daily for 5 days then 1 tablet daily 15 Tab 0 01/11/2017 04/17/2017 Discontinued as of this encounter Active Problems [...] Hyperlipidemia LDL goal <130 Other chronic sinusitis [employer] as of this encounter Resolved Problems [...] Vital Sign Reading Time Taken Blood Pressure 118/70 04/17/2017 8:48 AM EST Pulse 60 04/17/2017 8:48 AM EST Temperature 36.1 C (97 F) 04/17/2017 8:4 8 AM EST Respiratory Rate 12 04/17/2017 8:48 AM EST Oxygen Saturation - - Inhaled Oxygen Concentration - - Weight 94.3 kg (208 lb) 04/17/2017 8:48 AM EST Height - - Body Mass Index 31.17 04/17/2017 8:48 AM EST in this encounter Functional Status [...] Progress Notes * Armani Hough MD - 04/17/2017 9:00 AM EST Formatting of this note may be different from the original. No complaints of headache, trouble with vision or hearing. Eating well, with no bowel or bladder complaints. Denies chest pain or palpitations. Denies shortness of breath, PND, or orthopnea. But in the past two weeks, he gets this dry nonproductive cough. No skin rashes or breakdown. No changes in mentation. The rest of a 10 point review of systems is negative. Health Maintenance addressed. Had the flu shot. Past Medical History: Diagnosis Date Benign neoplasm [...] chronic sinusitis Other psoriasis Raynaud's syndrome Rosacea [employer] Past Surgical History: Procedure Laterality Date COLONOSCOPY W/ LESION REMOVAL, SNARE 10/15/2010 polyp x1, path shows adenomatous tissue repeat in 5 years COLONOSCOPY W/ LESION REMOVAL, SNARE N/A 06/03/2016 7,6,2 mm polyps ascending, 6,3 mm polyps transverse colon Repeat 3 years COLONOSCOPY, DIAGNOSTIC (RECTUM) 06/03/2016 adenomatous polyp, repeat 3 yrs/COLONOSCOPY FLEXIBLE PROXIMAL DIAGNOSTIC performed by Anotinette Godinez MD at ENDOSCOPY [facility] CT-SINUSES WO CONTRAST 10/09/09 chronic sinusitis MRI C SPINE W CONT 03/10/14 severe bilateral foramen narrowing L3-4, L4-5, L5-S1 and severe left neural foramen narrowing L2-3 US - ABDOMEN, LIMITED 05/30/12 normal, no kidney stones Review of patient's allergies indicates: Allergen Reactions Potassium hives Social History Social History Marital status: Spouse name: N/A Number of children: 2 Years of education: N/A 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 for pain 30 Cap 5 venlafaxine (EFFEXOR) 75 MG Tablet Take 75 mg by mouth daily. 1 bedtime 0 baclofen (LIORESAL) 10 MG Tablet 1 twice a day 180 Tab 3 RaNITidine HCl 150 MG Capsule Take 1 Cap by mouth at bedtime. 90 Cap 1 omeprazole (PRILOSEC) 20 MG CPDR TAKE 1 CAPSULE ONCE DAILY 1HOUR BEFORE THE FIRST MEALOF THE DAY 90 Cap 1 traZODone (DESYREL) 100 MG Tablet TAKE 1 TABLET DAILY AT BEDTIME (Patient taking differently: TAKE 1/2 TABLET DAILY AT BEDTIME) 90 Tab 1 BuPROPion HCl ER, SR, [...] a day from SD 90 Tab 3 TOPROL XL 50 MG PO TB24 One pill by mouth twice a day from SD 90 Tab 3 LIPID PANEL Carleen Dt/Tm Resulted Value Status LDL CHOLESTEROL-OUTSIDE LAB (mg/dl) 09/10/13 10/02/13 106* FINAL Immunization History Administered Date(s) Administered Pneumococcal Polyvalent Vacc (Pneumovax) 12/18/2008, 09/18/2013 Seasonal Influenza, Quadrivalent, No Preserve, IM 03/16/2015, 01/15/2016, 02/09/2017 Seasonal Influenza, Trivalent, with Preserve, 3yr & Above, Split 05/08/2007, 01/06/2010, 02/17/2011, 02/16/2012, 01/24/2013, 01/07/2014 TD - Tetanus/Diptheria (ADULT) 07/06/2006 TDAP (age 10 and older)(Boostrix) 12/13/2011 O: Blood pressure 118/70, pulse 60, temperature 36.1 C (97 F), resp. rate 12, weight 94.3 kg (208 lb). Head normocephalic and atraumatic. No facial asymmetry. Eye exam; PEERLA, EOMI. No scleral icterus or nystagmus. Conjunctiva are pink and not injected. Oropharynx: no exudate, normal teeth and no pharyngeal inflammation. The palate has no lesions and the uvula is normal. Trachea is in the midline. Neck supple with no adenopathy or thyromegaly. No carotid bruits. Chest expands equally. Lungs clear, with no wheezes, rales, or rhonchi. Heart: S1 and S2 normal. PMI not obviously displaced. Heart regular, no murmurs, gallops, clicks or rubs. No CVA tenderness. No calf swelling or tenderness. No pedal edema. No skin rashes. Extremities unremarkable. A: I10 Essential hypertension with goal blood pressure less than 140/90 (primary encounter diagnosis) K21.9 Esophageal reflux Plan: Omeprazole 20 mg po cpdr Sig:Take 1 cap by mouth daily. G47.00 Persistent insomnia Plan: Trazodone hcl 100 mg po tabs Sig:Take 1/2 tablet daily at bedtime Follow up: Return in about 6 months (around 10/16/2017). Continue other meds as before. in this encounter Nursing Notes * Francisca Molina RN - 04/17/2017 9:00 AM EST 6 month check. Has a dry cough for a couple of weeks. in this encounter Plan of Treatment Upcoming Encounters Date Type Specialty Care Team Description 10/16/2017 Office Visit Internal Medicine Armani Hough MD [address] [place] [address] [place] [id number] [phone] 01/10/2018 Office Visit Neurology Lynn Hoover MD [address] [place] [address] [place] [address] [phone] Health Maintenance Due Date Last Done Comments *DEPRESSION SCREENINGANIA FOR PTS 18 AND OVER 06/08/2014 Influenza Vaccine (FLU shot) (#1) 2016 01/15/2016, 03/16/2015, 01/07/2014, Additional history exists COLONOSCOPY-EVERY 3 YRS AGES 18-100 06/03/2019 06/03/2016, 06/03/2016, 10/15/2010 DIABETES SCREEN EVERY 3 YRS- AGE 45 AND ABOVE 09/09/2019 09/08/2016, 06/01/2015, 05/20/2015, Additional history exists LIPID SCREEN EVERY 5 YRS-MEN AGE 35-75 09/08/2021 09/08/2016, 06/01/2015, 05/12/2014, Additional history exists TETANUS EVERY 10 YRS-TDAP (BOOSTRIX/ADACEL) SUGGESTED IF NOT RECEIVED IN PAST 12/12/2021 12/13/2011, 07/06/2006 as of this encounter Implants Not on fileas of this encounter Visit Diagnoses Diagnosis Essential hypertension with goal blood pressure less than 140/90 - Primary Esophageal reflux Persistent insomnia Persistent disorder of initiating or maintaining sleep in this encounter Insurance Payer Benefit Plan / Group Subscriber ID Type Phone Address IVETTTROBBY FERNANDEZ [id number] as of this encounter
[2023-02-21 07:33] LABS: Basophils # (auto) 0.02 K/uL (0.00-0.20); Basophils % (auto) 0.3 %; Eosinophils % (auto) 3.4 %; Hematocrit (blood only) 31.7 % (42.0-52.0); Hemoglobin 10.9 g/dl (14.0-18.0); Immature Granulocytes # (auto) 0.05 K/uL (0.01-0.20); Immature Granulocytes % (auto) 0.8 %; Lymphocytes # (auto) 1.73 K/uL (1.20-3.40); Lymphocytes % (auto) 29.4 %; Mean Corpuscular Hemoglobin 33.2 pg (25.0-34.0); Mean Corpuscular Hgb Conc 34.4 g/dL (32.0-36.0); Mean Corpuscular Volume 96.6 fL (80.0-100.0); Mean Platelet Volume 9.2 fL (9.4-12.4); Monocytes # (auto) 0.65 K/uL (0.11-0.59); Neutrophils # (auto) 3.24 K/uL (1.40-6.50); Neutrophils % (auto) 55.1 %; Platelet Count 342 K/uL (130-400); RDW Coefficient of Variation 12.6 % (11.5-14.5); RDW Standard Deviation 44.7 fL (36.4-46.3); Red Blood Count 3.28 M/uL (4.70-6.10); White Blood Count 5.89 K/ul (4.8-10.8)
[2023-02-21] MEDS: PANTOprazole 40 MG TAB PO SCH ×2 (07:49→21:43)
[2023-02-21] MEDS: busPIRone 15 MG TAB PO SCH ×3 (07:49→21:39)
[2023-02-21] MEDS: THIAMINE HCL 100 MG TAB PO SCH (07:49)
[2023-02-21] MEDS: CEROVITE ADV FORMULA TAB PO SCH (07:50)
[2023-02-21] MEDS: METOPROLOL TARTRATE 25 MG TAB PO SCH ×2 (07:50→21:42)
[2023-02-21] MEDS: MAGNESIUM CHLORIDE W/CALCIUM 64MG DELAYED REL TAB PO SCH (07:50)
[2023-02-21] MEDS: lisinopril 40 MG TAB PO SCH (07:51)
[2023-02-21] MEDS: FOLIC ACID 1 MG TAB PO SCH (07:51)
[2023-02-21 07:55] LABS: Albumin Globulin Ratio 1.3 (0.9-2); Albumin Level 3.3 gm/dl (3.4-5.0); BUN Creatinine Ratio 16.7 (10-20); Bilirubin,Total 0.4 mg/dl (0.2-1.0); Calcium 8.9 mg/dl (8.6-10.3); Est GFR (African American) 118.9 ml/min; Est GFR (Non-African American) 102.6 ml/min; Globulin 2.5 gm/dl (2.5-4.0); Magnesium 1.7 mg/dl (1.7-2.4); Phosphorus 3.8 mg/dl (2.5-4.9); Potassium 3.7 mmol/L (3.5-5.1); Total Protein 5.8 gm/dl (6.0-8.3)
[2023-02-21] MEDS: POLYETHYLENE (MIRALAX) 17 GM PACK PO SCH (07:58)
[2023-02-21] MEDS: ACETAMINOPHEN 325 MG TAB PO PRN ×2 (07:58→21:50)
--- NOTE | 2023-02-21 14:12 | XRay Report ---
XR knee RT 3V HISTORY: 67 years-old Male pain acute right knee pain COMPARISON: None TECHNIQUE: 3 views of the right knee FINDINGS: Arterial calcifications. Superior patellar enthesophyte. No acute fracture, dislocation or significan t joint space narrowing. No large joint effusion. IMPRESSION: No acute fracture or dislocation. ACT 112: Negative or not required by law. The above report was generated using voice recognition software. It may contain grammatical, syntax o r spelling errors. Electronically signed by: Isaias Aburto M.D. 02/21/2023 2:10 PM
[2023-02-21] MEDS: ENOXAPARIN INJ 40 MG/0.4 ML SYR SQ SCH (14:16)
[2023-02-21] MEDS: oxyCODONE HCL IR 5 MG TAB (IMMEDIATE RELEASE) PO PRN ×3 (14:16→22:45)
--- NOTE | 2023-02-21 15:20 | Hospitalist Progress Note ---
Date of Service February 21, 2023 Assessment & Plan (1) Thoracic radiculopathy: Plan: Patient presenting for evaluation of back pain, right foot drop, bilateral leg weakness and numbness. Outpatient thoracic MRI from 01/27 -at T10/11, there is a broad-based midline disc protrusion measuring 4 mm in diameter causing moderate flattening of the cord. There is severe spinal canal stenosis secondary to the protrusion and bilateral facet osteoarthritis. Myelopathy concurrent with and due to spinal stenosis of thoracic region --Lumbar spine MRI:Multilevel degenerative changes are seen. There is up to severe left and moderate right bilateral neural foraminal stenosis. Mild canal stenosis is seen. Partially visualized, there appears to be significant canal or neural foraminal stenosis in the lower thoracic spine most prominently at T10 -T11. If there is concern for spinal cord impingement, dedicated thoracic spine MRI can be performed. S/P Decompression and fusion T10-T12 by on 02/03/23 Pain controlled with tylenol and oxy prn. Continue along with bowel regimen Seen by physical therapy-recommended rehab. Peer to peer performed and unsuccessful at getting into acute rehab; however SNF auth obtained (2) Alcohol withdrawal: Plan: Acute metabolic encephalopathy due to alcohol withdrawal-resolved, back to baseline --CT Head:Motion degraded exam without acute intracranial abnormality. Alcohol withdrawal with DT- S/P Intubation 02/12/23 S/P Extubation on 02/14/23 Status post phenobarbital tapering course for withdrawal. On thiamine, folic acid Infectious work-up negative. Moved out of ICU 02/16/13 Currently AAOx3 and not in withdrawal anymore Hypophosphatemia-resolved Hypomagnesemia- Repleted and also continue po supplementation. Recheck in am Hypokalemia- resolved (3) Ileus: Plan: --CT ABD:Multiple gas-distended loops of large bowel are seen. No small bowel obstruction is seen. Resolved, tolerating diet well, having regular bowel movements (4) HTN (hypertension): Plan: Chronic, stable. Continue lisinopril, metoprolol (5) Anxiety: Plan: Resume home medications as able (6) Depression: Plan: Chronic, stable. On trazodone, BuSpar (7) Allergic rhinitis: Plan: Follows with allergy and receives immunotherapy injections. Prior hospitalist discussed with Lizzy Child PA-C -- due for injection on 02/11. Office will not transport serum to hospital for administration and do not recommend injection while acutely ill. Outpatient follow up. (8) HLD (hyperlipidemia): Plan: Chronic, stable Continue statin DVT Px: Lovenox SQ Disposition: PT recommends rehab, awaiting placement. Patient is stable for transfer to rehab. Will remove cath and do voiding trial today in prep for rehab Admission and Anticipated Discharge Date Admission Date: February 01, 2023 Supervising Physician Co-Signing Physician Notes Pt seen and examined by myself, Charline Lazar MD on the day of service. Care was coordinated with Clau Martinez PA-C. States that spacing out the tylenol has helped. Having BMs. Denied acute concerns. Stable for discharge, currently awaiting placement. Subjective Pt was seen and examined in room 387-1. Awaiting rehab s/p T10-t12 d/f surgery. Continues to have salmeron cath and wonders why. Denies f/c/s, chest pain, sob, n/v/d. Tolerating diet. Bowels sluggish but moving. He is up ambulating more now. Review of Systems Review of Systems: All systems reviewed & are unremarkable except as noted in HPI & below Physical Exam Physical Exam: Gen: WD/WN, M, NAD, A&O x3 HEENT: Normocephalic, atraumatic, conjunctivae moist, sclerae anicteric, mucous membranes moist. Lung: Clear to Auscultation bilaterally, no wheezes/rales/rhonchi Heart: Regular rate, regular rhythm, no murmurs, rubs, or gallops Abdomen: Soft, NT, ND +BS x 4 Extremities: No edema Skin: Warm, no rash, negative turgor. Salmeron cath draining yellow urine Results & Data Results & Data Vital Signs (Past 12 Hours) Vital Signs Temp Pulse Resp BP Pulse Ox O2 Del Method 02/21/23 08:10 36.7 C 65 18 138/76 96 Room Air Medications Administered Current Inpatient Medications Acetaminophen (Acetaminophen 325 Mg Tab) 325 mg PO Q3H PRN PRN Reason: MILD Pain Scale 1,2,3 & Pre PT Stop: 03/16/23 02:24 Last Admin: 02/21/23 07:58 Dose: 325 mg Al Hydrox/Mg Hydrox/Simethicone (Aluminum/Magnesium Susp 30 Ml Udc) 30 ml PO Q6H PRN PRN Reason: Dyspepsia Stop: 03/05/23 16:10 Atorvastatin Calcium (Atorvastatin 40 Mg Tab) 40 mg PO HS [facility]1983 Stop: 03/03/23 20:59 Last Admin: 02/20/23 21:41 Dose: 40 mg Baclofen (Baclofen 10 Mg Tab) 10 mg PO TID PRN PRN Reason: Muscle Spasm Stop: 03/03/23 17:35 Bisacodyl (Bisacodyl 10 Mg Supp) 10 mg KY DAILY PRN PRN Reason: Constipation Stop: 03/05/23 16:10 Last Admin: 02/06/23 07:49 Dose: 10 mg Buspirone HCl (Buspirone 15 Mg Tab) 15 mg PO TID [facility] Stop: 03/03/23 20:59 Last Admin: 02/21/23 14:16 Dose: 15 mg Desonide (Desonide Cr 15 Gm Tube) 1 appln EXT BID PRN PRN Reason: psoriasis Stop: 03/12/23 13:37 Diclofenac Sodium (Diclofenac Sod 1% Gel 100 Gm Tube) 4 gm EXT QID [facility]; Protocol Stop: 03/23/23 12:59 Enoxaparin Sodium (Enoxaparin Inj 40 Mg/0.4 Ml Syr) 40 mg SQ Q24H [facility] Stop: 03/14/23 11:59 Last Admin: 02/21/23 14:16 Dose: 40 mg Folic Acid (Folic Acid 1 Mg Tab) 1 mg PO DAILY [facility] Stop: 03/15/23 08:59 Last Admin: 02/21/23 07:51 Dose: 1 mg Guaifenesin/Dextromethorphan (Guaifenesin/Dextrom Syrup 100mg/10mg 5ml Udc) 5 ml PO Q6H PRN PRN Reason: Cough Stop: 03/20/23 12:36 Last Admin: 02/18/23 12:59 Dose: 5 ml Hydrocortisone (Hydrocortisone 2.5% Cr 30 Gm Tube) 1 appln EXT BID PRN PRN Reason: Itching Stop: 03/12/23 13:37 Promethazine HCl 12.5 mg/ (Sodium Chloride) 50.5 mls @ 202 mls/hr IV Q6H PRN PRN Reason: Nausea &/or Vomiting Stop: 03/05/23 16:10 Influenza Virus Vaccine Quadrival (Do Not Administer Flu Vaccine) 1 each N/A PRN PRN PRN Reason: Notification Stop: 03/05/23 16:10 Lidocaine (Lidocaine 5% 1 Patch) 1 patch TD HS [facility] Stop: 03/12/23 22:54 Last Admin: 02/20/23 21:42 Dose: 1 patch Lisinopril (Lisinopril 40 Mg Tab) 40 mg PO QAM [facility] Stop: 03/04/23 08:59 Last Admin: 02/21/23 07:51 Dose: 40 mg Magnesium Chloride (Magnesium Chloride W/Calcium 64mg Delayed Rel Tab) 64 mg PO QAM [facility] Stop: 03/19/23 09:29 Last Admin: 02/21/23 07:50 Dose: 64 mg Magnesium Hydroxide (Magnesium Hydroxide Susp 30 Ml Udc) 30 ml PO Q24H PRN PRN Reason: Constipation Stop: 03/05/23 16:10 Last Admin: 02/05/23 17:08 Dose: 30 ml Metoprolol Tartrate (Metoprolol Tartrate 25 Mg Tab) 25 mg PO BID [facility] Stop: 03/03/23 20:59 Last Admin: 02/21/23 07:50 Dose: 25 mg Miscellaneous (Remove Lidoderm Patch) 1 each N/A DAILY@0900 [facility] Stop: 03/13/23 08:59 Last Admin: 02/21/23 07:55 Dose: 1 each Multivitamins/Minerals (Cerovite Adv Formula Tab) 1 tab PO QAM [facility] Stop: 03/19/23 09:24 Last Admin: 02/21/23 07:50 Dose: 1 tab Tacrolimis 0.1% Ointment: Non- Formulary Pt's Own Med 1 each TOP BID PRN PRN Reason: FLARES Stop: 03/12/23 14:50 Ondansetron HCl (Ondansetron Inj 2 Mg/Ml 2 Ml Vial) 4 mg IV Q6H PRN PRN Reason: Nausea &/or Vomiting Stop: 03/05/23 16:10 Oxycodone HCl (Oxycodone Hcl Ir 5 Mg Tab (Immediate Release)) 5 mg PO Q4 PRN PRN Reason: Mod-Sev Pain (Scale 4-10) Stop: 03/03/23 09:21 Last Admin: 02/21/23 14:16 Dose: 5 mg Pantoprazole Sodium (Pantoprazole 40 Mg Tab) 40 mg PO BID YOBANI Stop: 03/18/23 20:59 Last Admin: 02/21/23 07:49 Dose: 40 mg Pneumococcal Polyvalent Vaccine (Do Not Administer Pneumococcal Vaccine) 1 each N/A PRN PRN PRN Reason: Notification Stop: 03/05/23 16:10 Polyethylene Glycol (Polyethylene (Miralax) 17 Gm Pack) 17 gm PO DAILY YOBANI Stop: 03/10/23 08:59 Last Admin: 02/21/23 07:58 Dose: 17 gm Senna/Docusate Sodium (Docusate Sodium/Senna 50/8.6mg Tab) 2 tab PO HS YOBANI Stop: 03/03/23 20:59 Last Admin: 02/20/23 21:41 Dose: Not Given Sodium Biphosphate/Sodium Phosphate (Sod Phosphate/Sod Biphosphate Enema 132 Ml Btl) 132 ml [place] ONE PRN PRN Reason: Constipation Stop: 03/05/23 16:10 Thiamine HCl (Thiamine Hcl 100 Mg Tab) 100 mg PO DAILY YOBANI Stop: 03/15/23 08:59 Last Admin: 02/21/23 07:49 Dose: 100 mg Trazodone HCl (Trazodone Hcl 100 Mg Tab) 100 mg PO HS YOBANI Stop: 03/03/23 20:59 Last Admin: 02/20/23 21:41 Dose: 100 mg
[2023-02-21] MEDS: DICLOFENAC SOD 1% GEL 100 GM TUBE EXT SCH ×4 (16:14→21:47)
[2023-02-21] MEDS: ATORVASTATIN 40 MG TAB PO SCH (21:39)
[2023-02-21] MEDS: LIDOCAINE 5% 1 PATCH TD SCH (21:41)
[2023-02-21] MEDS: traZODone HCL 100 MG TAB PO SCH (21:43)
[2023-02-21] MEDS: DOCUSATE SODIUM/SENNA 50/8.6MG TAB PO SCH (21:45)
[2023-02-22] MEDS: ACETAMINOPHEN 325 MG TAB PO PRN (05:22)
[2023-02-22] MEDS: oxyCODONE HCL IR 5 MG TAB (IMMEDIATE RELEASE) PO PRN ×3 (08:10→21:25)
[2023-02-22] MEDS: PANTOprazole 40 MG TAB PO SCH ×2 (08:10→21:26)
[2023-02-22] MEDS: FOLIC ACID 1 MG TAB PO SCH (08:11)
[2023-02-22] MEDS: THIAMINE HCL 100 MG TAB PO SCH (08:11)
[2023-02-22] MEDS: CEROVITE ADV FORMULA TAB PO SCH (08:11)
[2023-02-22] MEDS: lisinopril 40 MG TAB PO SCH (08:11)
[2023-02-22] MEDS: MAGNESIUM CHLORIDE W/CALCIUM 64MG DELAYED REL TAB PO SCH (08:11)
[2023-02-22] MEDS: DICLOFENAC SOD 1% GEL 100 GM TUBE EXT SCH ×4 (08:12→21:27)
[2023-02-22] MEDS: busPIRone 15 MG TAB PO SCH ×3 (08:12→21:27)
[2023-02-22] MEDS: METOPROLOL TARTRATE 25 MG TAB PO SCH ×2 (08:13→21:26)
[2023-02-22] MEDS: ENOXAPARIN INJ 40 MG/0.4 ML SYR SQ SCH (08:14)
[2023-02-22] MEDS: POLYETHYLENE (MIRALAX) 17 GM PACK PO SCH (08:29)
[2023-02-22 08:44] LABS: Basophils # (auto) 0.04 K/uL (0.00-0.20); Basophils % (auto) 0.6 %; Eosinophils % (auto) 3.2 %; Hemoglobin 12.6 g/dl (14.0-18.0); Immature Granulocytes # (auto) 0.05 K/uL (0.01-0.20); Immature Granulocytes % (auto) 0.8 %; Mean Corpuscular Hemoglobin 34.2 pg (25.0-34.0); Mean Corpuscular Volume 97.8 fL (80.0-100.0); Mean Platelet Volume 9.2 fL (9.4-12.4); Monocytes # (auto) 0.55 K/uL (0.11-0.59); Monocytes % (auto) 8.9 %; Neutrophils # (auto) 3.57 K/uL (1.40-6.50); Neutrophils % (auto) 57.5 %; Platelet Count 365 K/uL (130-400); RDW Coefficient of Variation 12.5 % (11.5-14.5); RDW Standard Deviation 44.8 fL (36.4-46.3); Red Blood Count 3.68 M/uL (4.70-6.10); White Blood Count 6.21 K/ul (4.8-10.8)
[2023-02-22 08:52] LABS: Albumin Globulin Ratio 1.2 (0.9-2); Albumin Level 3.7 gm/dl (3.4-5.0); BUN Creatinine Ratio 14.3 (10-20); Bilirubin,Total 0.4 mg/dl (0.2-1.0); Calcium 9.5 mg/dl (8.6-10.3); Creatinine Clr Calc Pharmacy 102.8 ml/min; Est GFR (African American) 111.6 ml/min; Est GFR (Non-African American) 96.3 ml/min; Magnesium 1.5 mg/dl (1.7-2.4); Phosphorus 3.7 mg/dl (2.5-4.9); Total Protein 6.7 gm/dl (6.0-8.3)
--- NOTE | 2023-02-22 12:46 | Hospitalist Progress Note ---
Date of Service February 22, 2023 Assessment & Plan (1) Thoracic radiculopathy: Plan: Patient presenting for evaluation of back pain, right foot drop, bilateral leg weakness and numbness. Outpatient thoracic MRI from 01/27 -at T10/11, there is a broad-based midline disc protrusion measuring 4 mm in diameter causing moderate flattening of the cord. There is severe spinal canal stenosis secondary to the protrusion and bilateral facet osteoarthritis. Myelopathy concurrent with and due to spinal stenosis of thoracic region --Lumbar spine MRI:Multilevel degenerative changes are seen. There is up to severe left and moderate right bilateral neural foraminal stenosis. Mild canal stenosis is seen. Partially visualized, there appears to be significant canal or neural foraminal stenosis in the lower thoracic spine most prominently at T10 -T11. If there is concern for spinal cord impingement, dedicated thoracic spine MRI can be performed. S/P Decompression and fusion T10-T12 by on 02/03/23 Pain controlled with tylenol and oxy prn. Continue along with bowel regimen Seen by physical therapy-recommended rehab. Peer to peer performed and unsuccessful at getting into acute rehab; however pt will d/c to [facility] bed tomorrow (2) Alcohol withdrawal: Plan: Acute metabolic encephalopathy due to alcohol withdrawal-resolved, back to baseline --CT Head:Motion degraded exam without acute intracranial abnormality. Alcohol withdrawal with DT- S/P Intubation 02/12/23 S/P Extubation on 02/14/23 Status post phenobarbital tapering course for withdrawal. On thiamine, folic acid Infectious work-up negative. Moved out of ICU 02/16/13 Currently AAOx3 and not in withdrawal anymore Hypophosphatemia-resolved Hypomagnesemia- Repleted and also continue po supplementation. Recheck in am Hypokalemia- resolved (3) Ileus: Plan: --CT ABD:Multiple gas-distended loops of large bowel are seen. No small bowel obstruction is seen. Resolved, tolerating diet well, having regular bowel movements (4) HTN (hypertension): Plan: Chronic, stable. Continue lisinopril, metoprolol (5) Anxiety: Plan: Resume home medications as able (6) Depression: Plan: Chronic, stable. On trazodone, BuSpar (7) Hypomagnesemia: Plan: mag 1.5 will replace, recheck in a.m. (8) Allergic rhinitis: Plan: Follows with allergy and receives immunotherapy injections. Prior hospitalist discussed with Lizzy Child PA-C -- due for injection on 02/11. Office will not transport serum to hospital for administration and do not recommend injection while acutely ill. Outpatient follow up. (9) HLD (hyperlipidemia): Plan: Chronic, stable Continue statin DVT Px: Lovenox SQ Disposition: plan to d/c to [facility] bed tomorrow Pt was seen and examined in collaboration with Dr. Lazar, please see addendum Admission and Anticipated Discharge Date Admission Date: February 01, 2023 Supervising Physician Co-Signing Physician Notes Pt seen and examined by myself, Charline Lazar MD on the day of service. Care was coordinated with Clau Martinez PA-C. Pt stated that he was stable, would like to be discharged. Stable for discharge, active bed search. Otherwise as above. Subjective Pt was seen and examined in room 387-1. Awaiting rehab s/p T10-t12 d/f surgery. Devi cath removed yesterday and tolerated well. He is urinating w/o difficulty. Is frustrated that he is still here. Denies f/c/s, chest pain, sob, n/v/d. appetite is normal. Review of Systems Review of Systems: All systems reviewed & are unremarkable except as noted in HPI & below Physical Exam Physical Exam: Gen: WD/WN, M, NAD, A&O x3 HEENT: Normocephalic, atraumatic, conjunctivae moist, sclerae anicteric, mucous membranes moist. Lung: Clear to Auscultation bilaterally, no wheezes/rales/rhonchi Heart: Regular rate, regular rhythm, no murmurs, rubs, or gallops Abdomen: Soft, NT, ND +BS x 4 Extremities: No edema Skin: Warm, no rash, negative turgor. Results & Data Results & Data Vital Signs (Past 12 Hours) Vital Signs Temp Pulse Resp BP Pulse Ox O2 Del Method 02/22/23 07:17 37.1 C 64 16 137/85 96 Room Air Medications Administered Current Inpatient Medications Acetaminophen (Acetaminophen 325 Mg Tab) 325 mg PO Q3H PRN PRN Reason: MILD Pain Scale 1,2,3 & Pre PT Stop: 03/16/23 02:24 Last Admin: 02/22/23 05:22 Dose: 325 mg Al Hydrox/Mg Hydrox/Simethicone (Aluminum/Magnesium Susp 30 Ml Udc) 30 ml PO Q6H PRN PRN Reason: Dyspepsia Stop: 03/05/23 16:10 Atorvastatin Calcium (Atorvastatin 40 Mg Tab) 40 mg PO HS YOBANI Stop: 03/03/23 20:59 Last Admin: 02/21/23 21:39 Dose: 40 mg Baclofen (Baclofen 10 Mg Tab) 10 mg PO TID PRN PRN Reason: Muscle Spasm Stop: 03/03/23 17:35 Bisacodyl (Bisacodyl 10 Mg Supp) 10 mg [place] DAILY PRN PRN Reason: Constipation Stop: 03/05/23 16:10 Last Admin: 02/06/23 07:49 Dose: 10 mg Buspirone HCl (Buspirone 15 Mg Tab) 15 mg PO TID YOBANI Stop: 03/03/23 20:59 Last Admin: 02/22/23 08:12 Dose: 15 mg Desonide (Desonide Cr 15 Gm Tube) 1 appln EXT BID PRN PRN Reason: psoriasis Stop: 03/12/23 13:37 Diclofenac Sodium (Diclofenac Sod 1% Gel 100 Gm Tube) 4 gm EXT QID [facility]; Protocol Stop: 03/23/23 12:59 Last Admin: 02/22/23 08:12 Dose: 4 gm Enoxaparin Sodium (Enoxaparin Inj 40 Mg/0.4 Ml Syr) 40 mg SQ Q24H YOBANI Stop: 03/14/23 11:59 Last Admin: 02/22/23 08:14 Dose: 40 mg Folic Acid (Folic Acid 1 Mg Tab) 1 mg PO DAILY YOBANI Stop: 03/15/23 08:59 Last Admin: 02/22/23 08:11 Dose: 1 mg Guaifenesin/Dextromethorphan (Guaifenesin/Dextrom Syrup 100mg/10mg 5ml Udc) 5 ml PO Q6H PRN PRN Reason: Cough Stop: 03/20/23 12:36 Last Admin: 02/18/23 12:59 Dose: 5 ml Hydrocortisone (Hydrocortisone 2.5% Cr 30 Gm Tube) 1 appln EXT BID PRN PRN Reason: Itching Stop: 03/12/23 13:37 Promethazine HCl 12.5 mg/ (Sodium Chloride) 50.5 mls @ 202 mls/hr IV Q6H PRN PRN Reason: Nausea &/or Vomiting Stop: 03/05/23 16:10 Influenza Virus Vaccine Quadrival (Do Not Administer Flu Vaccine) 1 each N/A PRN PRN PRN Reason: Notification Stop: 03/05/23 16:10 Lidocaine (Lidocaine 5% 1 Patch) 1 patch TD HS [facility] Stop: 03/12/23 22:54 Last Admin: 02/21/23 21:41 Dose: 1 patch Lisinopril (Lisinopril 40 Mg Tab) 40 mg PO QAM [facility] Stop: 03/04/23 08:59 Last Admin: 02/22/23 08:11 Dose: 40 mg Magnesium Chloride (Magnesium Chloride W/Calcium 64mg Delayed Rel Tab) 64 mg PO QAM [facility] Stop: 03/19/23 09:29 Last Admin: 02/22/23 08:11 Dose: 64 mg Magnesium Hydroxide (Magnesium Hydroxide Susp 30 Ml Udc) 30 ml PO Q24H PRN PRN Reason: Constipation Stop: 03/05/23 16:10 Last Admin: 02/05/23 17:08 Dose: 30 ml Metoprolol Tartrate (Metoprolol Tartrate 25 Mg Tab) 25 mg PO BID [facility] Stop: 03/03/23 20:59 Last Admin: 02/22/23 08:13 Dose: 25 mg Miscellaneous (Remove Lidoderm Patch) 1 each N/A DAILY@0900 [facility] Stop: 03/13/23 08:59 Last Admin: 02/22/23 08:14 Dose: 1 each Multivitamins/Minerals (Cerovite Adv Formula Tab) 1 tab PO QAM [facility] Stop: 03/19/23 09:24 Last Admin: 02/22/23 08:11 Dose: 1 tab Tacrolimis 0.1% Ointment: Non- Formulary Pt's Own Med 1 each TOP BID PRN PRN Reason: FLARES Stop: 03/12/23 14:50 Ondansetron HCl (Ondansetron Inj 2 Mg/Ml 2 Ml Vial) 4 mg IV Q6H PRN PRN Reason: Nausea &/or Vomiting Stop: 03/05/23 16:10 Oxycodone HCl (Oxycodone Hcl Ir 5 Mg Tab (Immediate Release)) 5 mg PO Q4 PRN PRN Reason: Mod-Sev Pain (Scale 4-10) Stop: 03/03/23 09:21 Last Admin: 02/22/23 08:10 Dose: 5 mg Pantoprazole Sodium (Pantoprazole 40 Mg Tab) 40 mg PO BID YOBANI Stop: 03/18/23 20:59 Last Admin: 02/22/23 08:10 Dose: 40 mg Pneumococcal Polyvalent Vaccine (Do Not Administer Pneumococcal Vaccine) 1 each N/A PRN PRN PRN Reason: Notification Stop: 03/05/23 16:10 Polyethylene Glycol (Polyethylene (Miralax) 17 Gm Pack) 17 gm PO DAILY YOBANI Stop: 03/10/23 08:59 Last Admin: 02/22/23 08:29 Dose: 17 gm Senna/Docusate Sodium (Docusate Sodium/Senna 50/8.6mg Tab) 2 tab PO HS YOBANI Stop: 03/03/23 20:59 Last Admin: 02/21/23 21:45 Dose: Not Given Sodium Biphosphate/Sodium Phosphate (Sod Phosphate/Sod Biphosphate Enema 132 Ml Btl) 132 ml [place] ONE PRN PRN Reason: Constipation Stop: 03/05/23 16:10 Thiamine HCl (Thiamine Hcl 100 Mg Tab) 100 mg PO DAILY YOBANI Stop: 03/15/23 08:59 Last Admin: 02/22/23 08:11 Dose: 100 mg Trazodone HCl (Trazodone Hcl 100 Mg Tab) 100 mg PO HS YOBANI Stop: 03/03/23 20:59 Last Admin: 02/21/23 21:43 Dose: 100 mg
[2023-02-22] MEDS: MAGNESIUM SULFATE / D5W 1 GM/100 ML BAG IV SCH ×2 (16:07→17:17)
[2023-02-22] MEDS: LIDOCAINE 5% 1 PATCH TD SCH (21:25)
[2023-02-22] MEDS: traZODone HCL 100 MG TAB PO SCH (21:26)
[2023-02-22] MEDS: ATORVASTATIN 40 MG TAB PO SCH (21:27)
[2023-02-22] MEDS: DOCUSATE SODIUM/SENNA 50/8.6MG TAB PO SCH (21:27)
[2023-02-23] MEDS: oxyCODONE HCL IR 5 MG TAB (IMMEDIATE RELEASE) PO PRN ×2 (06:53→11:44)
[2023-02-23 07:22] LABS: Basophils # (auto) 0.02 K/uL (0.00-0.20); Basophils % (auto) 0.4 %; Eosinophils # (auto) 0.17 K/uL (0.00-0.50); Eosinophils % (auto) 3.3 %; Hematocrit (blood only) 33.4 % (42.0-52.0); Hemoglobin 11.5 g/dl (14.0-18.0); Immature Granulocytes # (auto) 0.02 K/uL (0.01-0.20); Immature Granulocytes % (auto) 0.4 %; Lymphocytes # (auto) 1.46 K/uL (1.20-3.40); Lymphocytes % (auto) 28.4 %; Mean Corpuscular Hemoglobin 34.3 pg (25.0-34.0); Mean Corpuscular Hgb Conc 34.4 g/dL (32.0-36.0); Mean Corpuscular Volume 99.7 fL (80.0-100.0); Monocytes # (auto) 0.45 K/uL (0.11-0.59); Monocytes % (auto) 8.8 %; Neutrophils # (auto) 3.02 K/uL (1.40-6.50); Neutrophils % (auto) 58.7 %; Platelet Count 327 K/uL (130-400); RDW Coefficient of Variation 12.8 % (11.5-14.5); RDW Standard Deviation 46.3 fL (36.4-46.3); Red Blood Count 3.35 M/uL (4.70-6.10); White Blood Count 5.14 K/ul (4.8-10.8)
[2023-02-23 07:40] LABS: Albumin Globulin Ratio 1.3 (0.9-2); Albumin Level 3.5 gm/dl (3.4-5.0); BUN Creatinine Ratio 16.9 (10-20); Bilirubin,Total 0.4 mg/dl (0.2-1.0); Calcium 9.1 mg/dl (8.6-10.3); Creatinine Clr Calc Pharmacy 101.4 ml/min; Est GFR (Non-African American) 95.7 ml/min; Globulin 2.7 gm/dl (2.5-4.0); Magnesium 1.7 mg/dl (1.7-2.4); Phosphorus 3.8 mg/dl (2.5-4.9); Total Protein 6.2 gm/dl (6.0-8.3)
[2023-02-23] MEDS: POLYETHYLENE (MIRALAX) 17 GM PACK PO SCH (07:47)
[2023-02-23] MEDS: lisinopril 40 MG TAB PO SCH (07:47)
[2023-02-23] MEDS: CEROVITE ADV FORMULA TAB PO SCH (07:47)
[2023-02-23] MEDS: DICLOFENAC SOD 1% GEL 100 GM TUBE EXT SCH ×2 (07:47→12:42)
[2023-02-23] MEDS: FOLIC ACID 1 MG TAB PO SCH (07:47)
[2023-02-23] MEDS: METOPROLOL TARTRATE 25 MG TAB PO SCH (07:48)
[2023-02-23] MEDS: THIAMINE HCL 100 MG TAB PO SCH (07:48)
[2023-02-23] MEDS: MAGNESIUM CHLORIDE W/CALCIUM 64MG DELAYED REL TAB PO SCH (07:48)
[2023-02-23] MEDS: PANTOprazole 40 MG TAB PO SCH (07:48)
[2023-02-23] MEDS: busPIRone 15 MG TAB PO SCH ×2 (07:48→12:42)
[2023-02-23] MEDS: ENOXAPARIN INJ 40 MG/0.4 ML SYR SQ SCH (11:45)
--- NOTE | 2023-02-23 12:30 | Discharge Summary ---
Discharge Summary Date of Service February 23, 2023 Notes For Next Care Provider Medication Changes From Visit Admission HPI Per Admitting Provider 67 year old male with PMH hyperlipidemia, HTN, GERD, psoriasis, anxiety, depression, and other problems listed below who presents to the ED for evaluation of back pain, right foot drop, bilateral leg numbness and weakness. History obtained from the patient and review of outpatient PCP and neurology records. Patient states his symptoms initially began 7 weeks ago. Reports that he developed a mid/lower back pain. Then developed right foot drop. Symptoms progressed to include numbness from the umbilicus down both legs bilaterally with associated weakness. Patient reports that he was ambulating with the assistance of a cane however now is having much difficulty with use of a cane. Patient had an outpatient MRI completed on 01/27 that showed a broad-based midline disc protrusion at T10/T11 causing moderate flattening of the cord with severe spinal canal stenosis. Patient denies bowel and bladder dysfunction. No fevers or chills. Denies chest pain and shortness of breath. No lighthea dedness, dizziness, diaphoresis, syncopal events. In the ED, labs are unremarkable. Lumbar spine MRI pending. Patient was given IV morphine and IV Zofran. Principal Dx & Hospital Course #1 = Principal Diagnosis Updated Medication List Medication Instructions Recorded Confirmed Type atorvastatin 40 mg tablet (Lipitor) 40 mg PO HS 03/12/21 02/01/23 History lisinopril 40 mg tablet 40 mg PO QAM 03/12/21 02/01/23 History omeprazole 20 mg capsule,delayed 20 mg PO BID 03/12/21 02/01/23 History release sildenafil 50 mg tablet (Viagra) 50 mg PO DAILY PRN Erectile 03/12/21 02/01/23 History Dysfunction baclofen 10 mg tablet 10 mg PO TID PRN Muscle Spasm 02/01/23 02/01/23 History bupropion HCl 200 mg tablet,12 hr 200 mg PO BID 02/01/23 02/01/23 History sustained-release buspirone 15 mg tablet 15 mg PO TID 02/01/23 02/01/23 History desonide 0.05 % topical cream 1 applic topical BID PRN psoriasis 02/01/23 02/01/23 History hydrocortisone 2.5 % topical cream 1 applic topical BID PRN Itching 02/01/23 02/01/23 History metoprolol tartrate 25 mg tablet 25 mg PO BID 02/01/23 02/01/23 History tacrolimus 0.1 % topical ointment 1 applic topical BID PRN genital 02/01/23 02/01/23 History psoriasis trazodone 100 mg tablet 100 mg PO HS 02/01/23 02/01/23 History oxycodone 5 mg tablet 5 mg PO Q4 PRN pain (scale score 02/23/23 Rx 7-10) #30 tabs Hospital Stay Data Consultations 02/01/23 15:20 ED Decision to Admit Stat 02/01/23 18:44 Consult Orthopedic Spine Surgery Routine 02/11/23 00:16 Consult Machine Adjuster Routine 02/16/23 14:01 Consult Urology Routine Procedures Performed Operation Date: 02/03/23 11:45 Actual Procedures p T10-T12 Decompression and Fusion(Not Applicable) - Fco Lott, Diagnostic Imagining Performed 02/01/23 14:09 MR lumbar spine wo con Stat 02/03/23 11:45 FL thoracic spine 2V Routine 02/06/23 10:59 CT abd pelvis wo con Urgent 02/09/23 10:[address] [CT head/brain wo con] Urgent Pending Results Patient Have Any Pending Studies at Discharge: No Discharge Instructions Given to Patient (Per Discharging Provider) Mr. Li, You were admitted and had back surgery done. Your course was complicated by alcohol withdrawal but you are now better. It was recommended that you be discharged to an acute rehab facility so you can get better. The salmeron catheter has been removed and you are voidng well. There are further instructions listed for you below. We recommend keeping close follow up with your primary care provider and your Urologist after discharge. It was a pleasure taking care of you during your time here. ACTIVITY RECOMMENDATIONS: SELF CARE INSTRUCTIONS AFTER THORACIC/LUMBAR FUSIONS 1. You may walk to your tolerance. It is good exercise for your legs and back. Expect some back and intermittent leg aches and pains. 2. You may perform "counter-top" level activities (make a sandwich, yamel with a project, etc.). 3. No bending or lifting of more than 10 pounds or back twisting of any nature (roll like a log when turning in bed). 4. You may ride in a car for 20-30 minutes at a time. No driving until after your first visit with your doctor. 5. Frequent changes of position and restricting sitting to 30 minutes at a time will help limit the amount of back spasms and stiffness you may experience. 6. You may discontinue the use of ambulatory aids (cane, crutches, etc.) once your strength and confidence allow. 7. You may telecom coordinator the shower and let water strike your incision when you arrive home at least once daily. Do not take a tub bath, sit in a hot tub or go into a swimming pool until after your first recheck in the office. SPECIAL CARE INSTRUCTIONS: VERY IMPORTANT TO READ AND REVIEW A. Your surgical incision has been closed with a cosmetic suture under the skin that will dissolve in about 6 weeks. In 14 days, you can use a pair of clean scissors and cut the suture that is left outside of the skin at the ends of your incision. 1. The small skin tapes can be removed 7 days after surgery if they have not fallen off by that point. 2. You may keep the wound open to air as much as possible to promote healing after post-op day number 5 unless told otherwise by your doctor. 3. If you think the wound looks like it is becoming infected (redness or worsening drainage) and/or you are experiencing fever, chill or worsening back pain and muscle spasms, contact the office so that we may evaluate you as soon as possible. B. Complications are uncommon, but please contact us if you have any signs or symptoms of: 1. wound infection (fever higher than 102.5 degrees F, redness, separation of wound, drainage, or increasing pain from the incision) 2. blood clots in legs (pain, swelling, redness and warmth in legs) 3. urinary tract infection (fever higher than 102.5 degrees F, burning upon urination or increased frequency of urination) 4. nerve problems (inability to walk on your toes or heels, numbness, loss of bowel or bladder control) 5. any other symptoms that concern you C. Please call the office at if you have any concerns or questions about your operation or recovery. D. No smoking! Smoking drastically decreases the chance of a solid fusion. E. Do not take any anti-inflammatory medications (Indocin, Advil, Motrin, Aspirin, Naprosyn, etc.) as these may inhibit the chance of a solid fusion. Tylenol is okay to take for pain. MANAGING PAIN AFTER SPINAL SURGERY 1. Narcotic medication is intended for short-term use and will be provided for surgical pain. Surgical pain usually lasts for a period of 4-6 weeks. Narcotic medication includes Percocet, Vicodin, Darvocet, Tylenol #3 or Lortab. 2. Longer-term pain is more appropriately treated with non-narcotic medication such as Tylenol ES. 3. Muscle spasm is not appropriately treated with narcotics. Muscle relaxers such as Soma, Flexeril or Skelaxin can be used along with Tylenol ES. 4. Remember that we all live with some "aches and pains". This is not unusual or uncommon after an injury or as we get older. a. Back pain is expected and may include muscle spasms for 4 to 6 weeks after surgery. The pain should gradually improve. If the pain worsens for no apparent reason, please contact the office. b. Intermittent leg pain may also be experienced and should not be concerned about unless it worsens for no apparent reason. If so, please contact the office. 5. We will provide appropriate medication within the normal guidelines of their prescribed use. We will also be very cautious and aware of potential abuse and extended duration of patients' medication needs. a. Pain medications are for your comfort and to assist with sleep and rest so that the tissue can heal. They are not provided in order to return to normal activity and should not be used through the day. To do so or worsening pain at night can result from ongoing tissue damage and development of tolerance to the prescribed medicine. 6. Please allow 2-3 days to process refills. Prescriptions will not be mailed but must be picked up at the office. FOLLOW UP VISIT: Keep your scheduled follow-up appointment. Any questions, please call the office at .
--- NOTE | 2023-02-24 12:13 | Coding Query ---
Your help is needed for correct coding of this account; please clarify if the patients Post-operative Ileus (documentation begins on 02/06 Progress Notes) was: ( ) expected out of the surgery (x ) unexpected complication from the surgery ( )other please specify Thank you Rajni STEWART
== END 2023-02-23 13:57 | DRG 459 ==
LOC: ED 11:04 → 3E 15:59 → SUATTDRO 15:59 → 3E 16:53 → 2N 02-08 14:45 → 2S 02-08 20:14 → 1E 02-11 01:31 → 2E 02-16 18:49 → 3N 02-18 13:37